=== PATIENT | male | born 1950 | race Caucasian/White ===

== ENCOUNTER 2017-01-14 21:33 | Emergency (ER) | payer OTHER ==
[~2017-01-14] VITALS: Ht 177.8 cm; Wt 91.0 kg
[~2017-01-14 21:33] MED LIST: ASCO10003 PO; CHOL100010 PO; CYCL10TA6 PO; FOLI1TAB7 PO; IBUP-103 PO; NRN/300 PO; PRLSR20 PO; PSEU30TA20 PO; TAMS0.4C59 PO
[2017-01-14 21:35] VITALS: Ht 177.8 cm; Wt 91.0 kg
[2017-01-14] MEDS ORDERED: CHOL100010 PO (21:50)
[2017-01-14] MEDS ORDERED: EFF75 PO (21:51)
--- NOTE | 2017-01-14 22:03 | EMERGENCY ROOM VISIT NOTE ---
History Report prepared by Katelynn: Ignacia Byrne Under the Supervision of: Dr. Alyssa Pedraza D.O. First contact with patient: 21:47 Chief Complaint: LEG PAIN,LEG INJURY Stated Complaint: FALL, LEFT LEG PAIN History of Present Illness The patient is a 66 year old male who presents to the Emergency Room with complaints of constant left leg pain beginning shortly prior to arrival. He rates the pain at a 10/10. The patient reports falling while going up steps. The patient also reports hitting his right elbow which is not giving him pain, and he denies hitting his head. He also denies numbness and tingling in his leg. He reports that he has injured his left knee before and that he has had surgery on it. Pt denies headache, change in vision, fevers, chest pain, shortness of breath, nausea, vomiting, diarrhea, pain with urination, and melena. Source of History: patient Onset: shortly prior to arrival Position: leg (left) Symptom Intensity: rated at a 10/10 Timing: constant Associated Symptoms: No fevers, No headache, No chest pain, No SOB, No nausea, No vomiting, No melena Review of Systems See HPI for pertinent positives & negatives. A total of 10 systems reviewed and were otherwise negative. Past Medical & Surgical Medical Problems: (1) Stomach problems Family History FHx: cancer Gallbladder disease Social History Smoking Status: Never Smoker Marital Status: Housing Status: lives with significant other Current/Historical Medications Scheduled Ascorbic Acid (Vitamin C), 1,000 MG PO DAILY Cholecalciferol (Vitamin D), 1,000 UNITS PO DAILY Folic Acid (Folvite), 1 MG PO DAILY Gabapentin (Neurontin), 600 MG PO BID Omeprazole (Prilosec), 20 MG PO BID Venlafaxine Hcl (Effexor), 1 CAP PO DAILY Scheduled PRN Cyclobenzaprine Hcl (Flexeril), 10 MG PO HS PRN Pseudoephedrine (Sudafed), 30 MG PO DAILY PRN for Nasal Congestion Allergies Coded Allergies: Adhesives (Unverified Allergy, Unknown, TAPE, 07/23/15) BEE STING (Unverified Allergy, Unknown, ., 07/23/15) Meperidine (Unverified Allergy, Unknown, ,, 07/23/15) Morphine (Unverified Allergy, Unknown, ., 07/23/15) Sulfamethoxazole w/Trimethoprim (Unverified Allergy, Unknown, ., 07/23/15) Physical Exam Vital Signs Date Time Temp Pulse Resp B/P (MAP) Pulse Ox O2 Delivery O2 Flow Rate FiO2 01/14/17 22:13 37.1 101 22 138/85 90 Room Air 01/14/17 21:35 37.3 99 20 147/84 91 Room Air Physical Exam GENERAL: alert, well appearing, well nourished, no distress, non-toxic EYE EXAM: normal conjunctiva, PERRL and EOM's grossly intact OROPHARYNX: no exudate, no erythema, lips, buccal mucosa, and tongue normal and mucous membranes are moist NECK: supple, no nuchal rigidity, no adenopathy, non-tender LUNGS: Clear to auscultation. Normal chest wall mechanics HEART: no murmurs, S1 normal and S2 normal ABDOMEN: abdomen soft, non-tender, normo-active bowel sounds, no masses, no rebound or guarding. BACK: Back is symmetrical on inspection and there is no deformity, no midline tenderness, no CVA tenderness. SKIN: no rashes and no bruising UPPER EXTREMITIES: upper extremities are grossly normal. LOWER EXTREMITIES: Pain with palpation of left knee with no obvious deformities.No joint effusion. Tender along medial aspect, small contusion noted at the superior medial aspect. Decreased ROM secondary to injury. No other bony tenderness or deformity noted along the left lower extremity. NEURO EXAM: Normal sensorium, cranial nerves II-XII grossly intact, normal speech, no gross weakness of arms, no gross weakness of legs. Gross sensation intact. Medical Decision & Procedures ER Provider Diagnostic Interpretation: Radiology results have been interpreted by the radiologist and reviewed by me. L KNEE 1 OR 2 VIEWS ROUTINE CLINICAL HISTORY: trauma pain COMPARISON: None. DISCUSSION: Considerable degenerative change all major joint compartments. Small joint effusion. Mild soft tissue edema. IMPRESSION: Considerable degenerative change. Small joint effusion. No acute bony abnormality The above report was generated using voice recognition software. It may contain grammatical, syntax or spelling errors. Electronically signed by: Dario Virgen M.D. 01/14/2017 10:22 PM Dictated Date/Time: 01/14/2017 10:21 PM L ANKLE MIN 3 VIEWS ROUTINE CLINICAL HISTORY: TRAUMA, FALL LEFT ANKLE SWELLING COMPARISON: None. DISCUSSION: Moderate generalized degenerative change. Heel spur. Ossification Achilles tendon insertion. No acute bony abnormality. There is no evidence for soft tissue swelling. IMPRESSION: Moderate degenerative change. No acute bony abnormality. Heel spur. The above report was generated using voice recognition software. It may contain grammatical, syntax or spelling errors. Electronically signed by: Dario Virgen M.D. 01/14/2017 10:28 PM Dictated Date/Time: 01/14/2017 10:27 PM ED Course 2155: The patient was evaluated in room C6. A complete history and physical exam was performed. 0: I updated the patient on his results. 0: Upon reevaluation, the patient is feeling better. I discussed the findings and the treatment plan with the patient. He verbalizes agreement and understanding. He was discharged home. Medical Decision No evidence for fx/dislocation, low risk mechanism. Pt and family concerned about ligamentous injury, discussed f/u with pcp and if sx persist f/u with ortho and likely additional imaging. Discussed crutches, limited ROM and non weight bearing until improved or otherwise advised. Discussed sx to watch/ return for, they verbalized understanding and were agreeable with plan. Medication Reconcilliation Current Medication List: was personally reviewed by me Blood Pressure Screening Patient's blood pressure: Elevated blood pressure Blood pressure disposition: Elevated BP felt to be situational Impression Primary Impression: Leg pain, left Additional Impression: Contusion Scribe Attestation The scribe's documentation has been prepared under my direction and personally reviewed by me in its entirety. I confirm that the note above accurately reflects all work, treatment, procedures, and medical decision making performed by me. Departure Information Dispostion Home / Self-Care Referrals No Doctor, Assigned (PCP) Forms HOME CARE DOCUMENTATION FORM, IMPORTANT VISIT INFORMATION Patient Instructions My [facility] Recurve Additional Instructions Please elevate the leg when seated. Please use the crutches until the knee is better or you're seen and cleared by your family doctor. Please follow up with your family doctor this week. If your knee is not improved, they may send you for additional pictures or refer you to an criminal research specialist. If you have any other worsening symptoms or new concerns, please return the emergency room. Problem Qualifiers Additional Impression: Contusion Encounter type: initial encounter Contusion area: knee Laterality: left Qualified Codes: S80.02XA - Contusion of left knee, initial encounter
[2017-01-14 22:13] VITALS: BP 138/85; PULSE 101; TEMP 37.1; O2SAT 90
--- NOTE | 2017-01-14 22:24 | DIAGNOSTIC IMAGING REPORT ---
L KNEE 1 OR 2 VIEWS ROUTINE CLINICAL HISTORY: trauma pain COMPARISON: None. DISCUSSION: Considerable degenerative change all major joint compartments. Small joint effusion. Mild soft tissue edema. IMPRESSION: Considerable degenerative change. Small joint effusion. No acute bony abnormality The above report was generated using voice recognition software. It may contain grammatical, syntax or spelling errors. Electronically signed by: Dario Virgen M.D. 01/14/2017 10:22 PM Dictated Date/Time: 01/14/2017 10:21 PM
--- NOTE | 2017-01-14 22:29 | DIAGNOSTIC IMAGING REPORT ---
L ANKLE MIN 3 VIEWS ROUTINE CLINICAL HISTORY: TRAUMA, FALL LEFT ANKLE SWELLING COMPARISON: None. DISCUSSION: Moderate generalized degenerative change. Heel spur. Ossification Achilles tendon insertion. No acute bony abnormality. There is no evidence for soft tissue swelling. IMPRESSION: Moderate degenerative change. No acute bony abnormality. Heel spur. The above report was generated using voice recognition software. It may contain grammatical, syntax or spelling errors. Electronically signed by: Dario Virgen M.D. 01/14/2017 10:28 PM Dictated Date/Time: 01/14/2017 10:27 PM
== END 2017-01-14 23:38 | disposition home or self-care (01) ==
LOC: C.EDB 21:34 → C.EDC 23:38
DX: M79.605 Pain in left leg (principal); S80.02XA Contusion of left knee, initial encounter; W10.9XXA Fall (on) (from) unspecified stairs and steps, initial encounter; Y92.9 Unspecified place or not applicable; Z80.9 Family history of malignant neoplasm, unspecified; Z83.79 Family history of other diseases of the digestive system; Z79.899 Other long term (current) drug therapy

== ENCOUNTER 2018-06-26 18:52 | Inpatient (IN) ==
[2018-06-26] MEDS ORDERED: ONDANSETRON INJ 2 MG/ML 2 ML VIAL IV STA (19:10)
[2018-06-26] MEDS ORDERED: KETOROLAC TROMETHAMINE 15 MG/ML VIAL IV STA (19:10)
[2018-06-26] MEDS ORDERED: ACETAMINOPHEN 1,000 MG/100 ML VIAL IV STA (19:10)
[2018-06-26] MEDS ORDERED: PIPERACILLIN/TAZOBACTAM 4.5 GM/120 ML BAG IV ONE (19:12)
[2018-06-26] MEDS ORDERED: SODIUM CHLORIDE 0.9% 1000ML 1,000 ML IV SCH (19:15)
[2018-06-26 19:40] LABS: Hematocrit (blood only) 37.8 % (42-52); Hemoglobin 12.6 g/dL (14.0-18.0); Mean Corpuscular Hgb Conc 33.3 g/dL (32-36); Mean Corpuscular Volume 91.1 fL (80-100); Mean Platelet Volume 9.4 fL (7.4-10.4); Platelet Count 349 K/uL (130-400); RDW Standard Deviation 43.1 fL (36.4-46.3); Red Blood Count 4.15 M/uL (4.7-6.1); White Blood Count 16.41 K/uL (4.8-10.8)
[2018-06-26 19:58] LABS: Albumin Level 2.7 gm/dl (3.4-5.0); BUN Creatinine Ratio 15.2 (10-20); Calcium 8.5 mg/dl (8.5-10.1); Creatinine Clr Calc Pharmacy 95.5 ml/min; Est GFR (African American) 103.7; Est GFR (Non-African American) 89.5; Magnesium 1.7 mg/dl (1.8-2.4)
[2018-06-26 20:00] LABS: Albumin Globulin Ratio 0.5 (0.9-2); Bilirubin,Total 0.8 mg/dl (0.2-1); Globulin 5.1 gm/dl (2.5-4.0); Total Protein 7.8 gm/dl (6.4-8.2)
[2018-06-26] MEDS ORDERED: MAGNESIUM SULFATE / D5W 1 GM/100 ML BAG IV ONE (20:05)
[2018-06-26 20:08] LABS: Basophils # (auto) 0.02 K/uL (0-0.2); Basophils % (auto) 0.1 %; Eosinophils # (auto) 0.17 K/uL (0-0.5); Immature Granulocytes # (auto) 0.08 K/uL (0.00-0.02); Immature Granulocytes % (auto) 0.5 %; Lymphocytes # (auto) 1.27 K/uL (1.2-3.4); Lymphocytes % (auto) 7.7 %; Monocytes # (auto) 2.17 K/uL (0.11-0.59); Monocytes % (auto) 13.2 %; Neutrophils % (auto) 77.5 %; Toxic Vacuolation 1+
--- NOTE | 2018-06-26 20:20 | XRay Report ---
XR chest 1V portable HISTORY: 67 years-old Male epig pain acute epigastric abdominal pain COMPARISON: CT chest 02/02/2010, chest radiograph 02/02/2010 TECHNIQUE: Portable AP view of the chest FINDINGS: Lungs are hypoinflated with bronchovascular crowding. Moderate right hemidiaphragmatic elevation. Car diac silhouette is mildly enlarged. Mild bilateral interstitial coarsening without pneumothorax, pleu ral effusion or overt pulmonary edema. Subsegmental bibasilar opacities. Degenerative changes of the shoulders and spine. IMPRESSION: 1. Hypoinflation with bronchovascular crowding. 2. Mild cardiomegaly. 3. Moderate hemidiaphragmatic elevation with bibasilar opacities suggestive of atelectasis or pneumon itis. The above report was generated using voice recognition software. It may contain grammatical, syntax o r spelling errors. Electronically signed by: Henrique Stewart M.D. 06/26/2018 8:19 PM
--- NOTE | 2018-06-26 21:04 | Ultrasound Report ---
US gallbladder HISTORY: 67 years-old Male epig pain acute epigastric abdominal pain COMPARISON: Chest radiograph of same day TECHNIQUE: Multiple real-time sonographic images of the abdominal right upper quadrant were obtained assessing grayscale appearance and color flow FINDINGS: Pancreas is obscured by bowel gas. Small right pleural effusion incidentally noted. Increased echogen icity of liver is noted with poor through transmission. Heterogeneous appearance of the parenchyma wi thout evidence of ascites or intrahepatic biliary ductal dilation. No focal hepatic mass lesion. Comm on bile duct is normal, 5 mm. Intraluminal echogenicity of the gallbladder lumen are noted without posterior acoustic shadowing. No gallbladder wall thickening or pericholecystic fluid. Or sonographic sign reported as negativ e. Imaged right kidney is unremarkable without hydronephrosis. Obscuring bowel gas limits the study. IMPRESSION: 1. Gallbladder sludge with possible cholelithiasis. No sonographic evidence of acute cholecystitis. 2. No biliary ductal dilation. 3. Suggested hepatic steatosis. The above report was generated using voice recognition software. It may contain grammatical, syntax o r spelling errors. Electronically signed by: Henrique Stewart M.D. 06/26/2018 9:03 PM
[2018-06-26 21:29] LABS: Appearance Urine Clear (Clear); Bacteria Urine Automated Negative (Negative); Bilirubin Urine Negative (Negative); Blood Urine Negative (Negative); Cast Urine Automated 0 /lpf (0-5); Color Urine Yellow; Epithelial Cell Urine Auto 0-5 /lpf (0-5); Glucose Urine UA Negative (Negative); Ketones Urine Negative (Negative); Leukocyte Esterase Urine Negative (Negative); Nitrite Urine Negative (Negative); Protein Urine Trace (Negative); RBC Urine Automated 0-4 /hpf (0-4); Specific Gravity Urine 1.017 (1.000-1.030); Urobilinogen Urine Negative (Negative); WBC Urine Automated 0 /hpf (0-5)
[2018-06-26] MEDS ORDERED: IOVERSOL 100ml IV PRN (22:11)
--- NOTE | 2018-06-26 22:14 | Emergency Department Note ---
Entered by Evie Cardenas acting as a scribe for Kody Long MD History of Present Illness General Chief complaint: Abdominal Pain Stated complaint: PAIN ON RT SIDE Time Seen by Provider: 06/26/18 18:58 Source: patient Mode of arrival: ambulatory Limitations: no limitations History of Present Illness Provider complaint: abdominal pain Onset (ago): week(s) 1 Location: abdomen and right Pain Consistency: + other (worsening) Exacerbated By: + movement and + other (coughing, bending); not by eating Associated symptoms: + denies other symptoms (urinary, abn BM), + cough, + headaches, + loss of appetite and + nausea/vomiting (nausea, no emesis); no fever/chills The patient is a 67 year old male who presents to the Emergency Room with c omplaints of a worsening abdominal pain that began a week ago. The patient reports that the pain is located on the right upper quadrant of his abdomen. He denies any fevers, chills, or vomiting but states has been nauseous. He rates his pain a 5/10 and notes the pain is worsened by bending, coughing or moving. The patient denies eating making the pain worse and notes he has had a loss of appetite. He denies any urinary symptoms or abnormal bowel movements. He also denies any previous surgeries. The patient states that he does have a headache but believes it is unrelated. He reports that he has also been coughing for months. The patient notes that he had an US of his gallbladder performed about a month ago which showed sludge. Home Medications Home Medications Medication Instructions Recorded Confirmed Type amlodipine 5 mg PO DAILY 06/26/18 06/26/18 History cyclobenzaprine 10 mg PO HS PRN 06/26/18 06/26/18 History fentanyl 1 patch TRANSDERMAL Q OTHER DAY 06/26/18 06/26/18 History gabapentin 600 mg PO BID 06/26/18 06/26/18 History meloxicam 0 mg PO DAILY 06/26/18 06/26/18 History omeprazole 20 mg PO BID 06/26/18 06/26/18 History pseudoephedrine HCl [Sudafed] 30 mg PO DAILY PRN 06/26/18 06/26/18 History venlafaxine [Effexor XR] 0 mg PO BID 06/26/18 06/26/18 History Allergies Allergy/AdvReac Type Severity Reaction Status Date / Time morphine Allergy Severe PROJECTILE Verified 06/26/18 19:50 VOMITING bee venom protein (honey bee) Allergy Intermediate EXCESSIVE Verified 06/26/18 19:50 SWELLING AT SITE sulfamethoxazole Allergy Intermediate TONGUE Verified 06/26/18 19:50 SWELLS, WHITE BLISTERS IN MOUTH. trimethoprim Allergy Intermediate TONGUE Verified 06/26/18 19:50 SWELLS, WHITE BLISTERS IN MOUTH. adhesive Allergy Mild SKIN Verified 06/26/18 19:50 IRRITATION Bactrim Allergy Unknown . Unverified 07/23/15 11:07 Past Med/Surg History Medical History No significant past medical history Surgical History No significant past surgical history Social History marital status: Current Living Situation: Spouse Feels Safe at Home: Yes Smoking Status: Never smoker Review of Systems See HPI for pertinent positives & negatives. and A total of 10 systems reviewed and were otherwise negative Physical Exam Vital Signs Vital Signs - 24 hr 06/26/18 18:54 06/26/18 20:08 06/26/18 20:11 Temperature 37.9 C H Temperature Source Oral Sepsis Recent Fever Within 48 Hours No Sepsis Action Taken by Nursing No Action Required Pulse Rate 111 H 94 H Pulse Rate [Bilateral] Pulse Rate from SpO2 Sensor 93 H Pulse Rhythm Regular Pulse Rhythm [Bilateral] Pulse Strength Normal Pulse Strength [Bilateral] Respiratory Rate 18 24 Respiratory Effort / Characteristics Non-Labored Spontaneous Respiratory Depth Normal Blood Pressure 138/83 114/77 Blood Pressure [Right Arm] Blood Pressure Mean 101 89 Blood Pressure Mean [Right Arm] Blood Pressure Position Sitting Pulse Oximetry 91 86 L Oxygen Delivery Method Room Air Room Air Room Air Oxygen Flow Rate 06/26/18 20:15 06/26/18 20:16 06/26/18 20:27 Temperature Temperature Source Sepsis Recent Fever Within 48 Hours Sepsis Action Taken by Nursing Pulse Rate Pulse Rate [Bilateral] Pulse Rate from SpO2 Sensor Pulse Rhythm Pulse Rhythm [Bilateral] Pulse Strength Pulse Strength [Bilateral] Respiratory Rate Respiratory Effort / Characteristics Respiratory Depth Blood Pressure 114/77 Blood Pressure [Right Arm] Blood Pressure Mean 89 Blood Pressure Mean [Right Arm] Blood Pressure Position Pulse Oximetry 93 Oxygen Delivery Method Nasal Cannula Oxygen Flow Rate 0 06/26/18 21:12 06/26/18 21:30 06/26/18 22:00 Temperature Temperature Source Sepsis Recent Fever Within 48 Hours Sepsis Action Taken by Nursing Pulse Rate 83 89 93 H Pulse Rate [Bilateral] Pulse Rate from SpO2 Sensor 84 89 94 H Pulse Rhythm Pulse Rhythm [Bilateral] Pulse Strength Pulse Strength [Bilateral] Respiratory Rate 16 20 20 Respiratory Effort / Characteristics Respiratory Depth Blood Pressure 118/70 115/77 127/80 Blood Pressure [Right Arm] Blood Pressure Mean 86 89 95 Blood Pressure Mean [Right Arm] Blood Pressure Position Pulse Oximetry 95 94 95 Oxygen Delivery Method Oxygen Flow Rate 06/26/18 22:28 06/26/18 23:00 Temperature Temperature Source Sepsis Recent Fever Within 48 Hours Sepsis Action Taken by Nursing Pulse Rate Pulse Rate [Bilateral] 79 77 Pulse Rate from SpO2 Sensor Pulse Rhythm Pulse Rhythm [Bilateral] Regular Pulse Strength Pulse Strength [Bilateral] Normal Respiratory Rate 20 22 Respiratory Effort / Characteristics Non-Labored Spontaneous Respiratory Depth Normal Blood Pressure Blood Pressure [Right Arm] 100/64 Blood Pressure Mean Blood Pressure Mean [Right Arm] 76 Blood Pressure Position Pulse Oximetry 85 L 95 Oxygen Delivery Method Room Air Nasal Cannula Oxygen Flow Rate 2 GENERAL: Patient is in no acute distress. HEENT: No acute trauma, normocephalic atraumatic, mucous membranes dry, no nasal congestion, no scleral icterus. NECK: No stridor, no adenopathy, no meningismus, trachea is midline. LUNGS: Clear to auscultation bilaterally, no wheeze, no rhonchi, breath sounds equal but diminished bilaterally. HEART: subtle systolic murmur, regular rhythm, normal rate. ABDOMEN: Soft, bowel sounds positive, no hernias, no peritonitis. Moderately tender in the right upper quadrant, pain worsens with a deep breath. EXTREMITIES: No cyanosis or edema, full range of motion of all the joints without pain or difficulty, no signs for acute trauma. NEUROLOGIC: Oriented x 3, no acute motor or sensory deficits, no focal weakness. SKIN: No rash, no jaundice, no diaphoresis. Course 1903: Past medical records reviewed. The patient was evaluated in room D3B, and a complete history and physical examination were performed. 2136: I updated the patient on today's findings. 2247: I reviewed the patient's case with Dr. Mo - [facility] Hospitalist. He will evaluate the patient for further management. Administered Medications Ioversol (Optiray 320 100ml) 96 ml IV ONCE PRN PRN Reason: Interaction Checking Stop: 06/30/18 22:10 Last Admin: 06/26/18 22:12 Dose: 96 ml Documented by: [id number] Discontinued Medications Albuterol (Duoneb) 3 ml NEB NOW STA Stop: 06/26/18 22:42 Last Admin: 06/26/18 22:47 Dose: 3 ml Documented by: [id number] Piperacillin Sod/Tazobactam Sod (Zosyn) 4.5 gm in 120 mls @ 240 mls/hr IV NOW ONE Stop: 06/26/18 19:41 Last Infusion: 06/26/18 20:40 Dose: 0 mls/hr Documented by: [id number] Admin: 06/26/18 20:05 Dose: 240 mls/hr Documented by: [id number] Acetaminophen (Ofirmev) 1,000 mg in 100 mls @ 400 mls/hr IV NOW STA Stop: 06/26/18 19:24 Last Infusion: 06/26/18 19:58 Dose: 0 mls/hr Documented by: [id number] Admin: 06/26/18 19:43 Dose: 400 mls/hr Documented by: [id number] Sodium Chloride (Nss 1000ml) 1,000 mls @ 999 mls/hr IV .Q1H1M BLANCA Stop: 06/26/18 20:15 Last Infusion: 06/26/18 20:35 Dose: 0 mls/hr Documented by: [id number] Admin: 06/26/18 19:38 Dose: 999 mls/hr Documented by: [id number] Magnesium Sulfate/Dextrose (Magnesium Sulfate / D5w) 1 gm in 100 mls @ 100 mls/hr IV ONE ONE Stop: 06/26/18 21:04 Last Infusion: 06/26/18 22:08 Dose: 0 mls/hr Documented by: [id number] Admin: 06/26/18 21:08 Dose: 100 mls/hr Documented by: [id number] Ketorolac Tromethamine (Toradol) 15 mg IV NOW STA Stop: 06/26/18 19:11 Last Admin: 06/26/18 19:38 Dose: 15 mg Documented by: [id number] Ondansetron HCl (Zofran) 4 mg IV NOW STA Stop: 06/26/18 19:11 Last Admin: 06/26/18 19:40 Dose: 4 mg Documented by: [id number] Medical Decision Making Differential Diagnosis Differential Diagnosis includes: acute cholecystitis, acute pancreatitis, pneumonia, biliary colic, pyelonephritis, appendicitis, dehydration, renal or liver failure, and viral illness. Medical Records Attestation: I reviewed the patient's medical records. Home Medications Current Medication List: was personally reviewed by me Laboratory Data Attestation: I reviewed the patient's lab results. Result diagrams: 06/26/18 19:25 06/26/18 19:25 Lab Results 06/26/18 06/26/18 06/26/18 Range/Units 19:25 19:25 21:05 WBC 16.41 H (4.8-10.8) K/uL RBC 4.15 L (4.7-6.1) M/uL Hgb 12.6 L (14.0-18.0) g/dL Hct 37.8 L (42-52) % MCV 91.1 (80-100) fL MCH 30.4 (25-34) pg MCHC 33.3 (32-36) g/dL RDW Std Deviation 43.1 (36.4-46.3) fL RDW Coeff of [place]ta 13.0 (11.5-14.5) % Plt Count 349 (130-400) K/uL MPV 9.4 (7.4-10.4) fL Immature Gran % (Auto) 0.5 % Neut % (Auto) 77.5 % Lymph % (Auto) 7.7 % [place] % (Auto) 13.2 % Eos % (Auto) 1.0 % Baso % (Auto) 0.1 % Immature Gran # (Auto) 0.08 H (0.00-0.02) K/uL Neut # (Auto) 12.70 H (1.4-6.5) K/uL Lymph # (Auto) 1.27 (1.2-3.4) K/uL [place] # (Auto) 2.17 H (0.11-0.59) K/uL Eos # (Auto) 0.17 (0-0.5) K/uL Baso # (Auto) 0.02 (0-0.2) K/uL Toxic Vacuolation 1+ Sodium 131 L (136-145) mmol/L Potassium 4.0 (3.5-5.1) mmol/L Chloride 95 L (98-107) mmol/L Carbon Dioxide 30 (21-32) mmol/L Anion Gap 6.0 (3-11) BUN 13 (7-18) mg/dl Creatinine 0.88 (0.6-1.4) mg/dl Est Cr Clr Drug Dosing 95.5 ml/min Est GFR ( Amer) 103.7 Est GFR (Non-Af Amer) 89.5 BUN/Creatinine Ratio 15.2 (10-20) Glucose 128 H (70-99) mg/dl Calcium 8.5 (8.5-10.1) mg/dl Magnesium 1.7 L (1.8-2.4) mg/dl Total Bilirubin 0.8 (0.2-1) mg/dl AST 24 (15-37) U/L ALT 27 (12-78) U/L Alkaline Phosphatase 78 (45-117) U/L Total Protein 7.8 (6.4-8.2) gm/dl Albumin 2.7 L (3.4-5.0) gm/dl Globulin 5.1 H (2.5-4.0) gm/dl Albumin/Globulin Ratio 0.5 L (0.9-2) Lipase 75 (73-393) U/L Urine Color Yellow Urine Appearance Clear (Clear) Urine pH 6.0 (4.5-7.5) Ur Specific [place] 1.017 (1.000-1.030) Urine Protein Trace H (Negative) Urine Glucose (UA) Negative (Negative) Urine Ketones Negative (Negative) Urine Blood Negative (Negative) Urine Nitrite Negative (Negative) Urine Bilirubin Negative (Negative) Urine Urobilinogen Negative (Negative) Ur Leukocyte Esterase Negative (Negative) Urine WBC (Auto) 0 (0-5) /hpf Urine RBC (Auto) 0-4 (0-4) /hpf U Hyaline Cast (Auto) 0 (0-5) /lpf U Epithel Cells (Auto) 0-5 (0-5) /lpf Urine Bacteria (Auto) Negative (Negative) Imaging Data Radiologist's Impression: Radiology results as stated below per my review and the radiologist's interpretation: XR chest 1V portable HISTORY: 67 years-old Male epig pain acute epigastric abdominal pain COMPARISON: CT chest 02/02/2010, chest radiograph 02/02/2010 TECHNIQUE: Portable AP view of the chest FINDINGS: Lungs are hypoinflated with bronchovascular crowding. Moderate right hemidiaphragmatic elevation. Cardiac silhouette is mildly enlarged. Mild bilateral interstitial coarsening without pneumothorax, pleural effusion or overt pulmonary edema. Subsegmental bibasilar opacities. Degenerative changes of the shoulders and spine. IMPRESSION: 1. Hypoinflation with bronchovascular crowding. 2. Mild cardiomegaly. 3. Moderate hemidiaphragmatic elevation with bibasilar opacities suggestive of atelectasis or pneumonitis. The above report was generated using voice recognition software. It may contain grammatical, syntax or spelling errors. Electronically signed by: Henrique Stewart M.D. 06/26/2018 8:19 PM US gallbladder HISTORY: 67 years-old Male epig pain acute epigastric abdominal pain COMPARISON: Chest radiograph of same day TECHNIQUE: Multiple real-time sonographic images of the abdominal right upper quadrant were obtained assessing grayscale appearance and color flow FINDINGS: Pancreas is obscured by bowel gas. Small right pleural effusion incidentally noted. Increased echogenicity of liver is noted with poor through transmission. Heterogeneous appearance of the parenchyma without evidence of ascites or intrahepatic biliary ductal dilation. No focal hepatic mass lesion. Common bile duct is normal, 5 mm. Intraluminal echogenicity of the gallbladder lumen are noted without posterior acoustic shadowing. No gallbladder wall thickening or pericholecystic fluid. Or sonographic sign reported as negative. Imaged right kidney is unremarkable without hydronephrosis. Obscuring bowel gas limits the study. IMPRESSION: 1. Gallbladder sludge with possible cholelithiasis. No sonographic evidence of acute cholecystitis. 2. No biliary ductal dilation. 3. Suggested hepatic steatosis. The above report was generated using voice recognition software. It may contain grammatical, syntax or spelling errors. Electronically signed by: Henrique Stewart M.D. 06/26/2018 9:03 PM ABDOMEN AND PELVIS CT WITH IV CONTRAST CT DOSE: 759.52 mGy.cm HISTORY: Acute right lower quadrant abdominal pain right sided abd pain TECHNIQUE: Multiaxial CT images of the abdomen and pelvis were performed following the use of intravenous contrast. A dose lowering technique was utilized adhering to the principles of ALARA. COMPARISON STUDY: Chest CT 02/02/2010. FINDINGS: Moderate right hemidiaphragmatic elevation. Linear consolidative and groundglass opacities of the right lung base are noted along with a small mildly loculated right pleural effusion. Mild subsegmental left basilar atelectasis/scarring. There is no pneumatosis or pneumoperitoneum identified. Coronary arterial calcifications are noted. The imaged inferior cardiac chambers are mildly enlarged. Enlarged paratracheal and subcarinal lymph nodes measure up to 3.4 x 2.4 cm, progressed from comparison. Minimal cholelithiasis. Spleen is unremarkable. Suggestion of mild hepatic steatosis. Liver is otherwise unremarkable. Pancreas is unremarkable. Mild thickening about the bilateral adrenal glands. The left kidney and ureter are unremarkable. Unchanged soft tissue nodule posterior to the superior pole right kidney, 6 mm. Based on stability from 2010 suggestive of a benign lymph node. Th ere is mild right-sided hydroureteronephrosis with mild perinephric and periureteral inflammatory stranding. No obstructing ureteral calculus or lesion identified. Urinary bladder and prostate appear unremarkable. Tortuosity about the descending thoracic aorta. No adenopathy by CT size criteria. Prominent iliac chain lymph nodes measure up to 8 mm in short axis. Mildly prominent periaortic and periportal lymph nodes are also present measuring up to 9 mm. Fluid noted about the distal esophagus. No small bowel obstruction. Moderate lentiform stool noted about the rectosigmoid. No significant bowel wall thickening identified. Noninflamed appendix. Soft tissues are unremarkable. Bones appear to be intact. Multilevel spondylitic spurring with facet arthropathy. Grade 1 anterolisthesis L4 on L5, likely degenerative. Chronic appearing anterior compression deformities are noted at several levels throughout the thoracolumbar spine. IMPRESSION: 1. Mild right-sided hydroureteronephrosis without obstructing calculus or lesion identified. Findings may be secondary to recently passed calculus or ascending infectious etiology. Correlate with patient history and urinalysis. 2. Small mildly loculated right pleural effusion. 3. Moderate right hemidiaphragmatic elevation with linear consolidative and groundglass opacities of the right lung base suggestive of atelectasis/scarring. 4. Nonspecific enlarged mediastinal lymph nodes with mildly prominent lymph nodes of the abdomen and pelvis as above. Follow-up recommended. 5. No bowel obstruction or focal bowel wall thickening. Normal appendix. 6. Additional findings as above. Electronically signed by: Henrique Stewart M.D. 06/26/2018 10:26 PM ECG Data Attestation: I personally reviewed and interpreted this ECG as follows: Indication: tachycardia Rate (beats per minute): 102 Rhythm: sinus tachycardia Findings: no PVC and no ST elevation Blood Pressure Blood Pressure Findings: Normal blood pressure Blood Pressure Disposition: did not require urgent referral MDM Narrative There is a moderate leukocytosis at 16,000, this would be consistent with infection. A mild anemia was noted. No kidney failure. Magnesium is slightly low at 1.7. No hepatitis or pancreatitis. Urinalysis does not show infection or significant hematuria. Chest film shows some basilar atelectasis and some right hemidiaphragm elevation. No obvious pneumonia, no free air. Gallbladder ultrasound showed some gallbladder sludge, no evidence for acute cholecystitis. Abdominal and pelvis CT shows a right sided pleural effusion, with some co nsolidation. There was no appendicitis or diverticulitis, no free air. The patient presents febrile and mildly tachycardic. He complains of right upper quadrant abdominal pain and the pain worsens with movement and deep breathing. During his ER stay, he did become hypoxic requiring O2 supplement ation. Patient was given IV Tylenol, a DuoNeb, IV Toradol, IV magnesium, IV Zofran, he is resting more comfortably. The patient tachycardia has improved, his blood pressure has remained adequate. It appears his presentation is secondary to a pneumonia with a pleural effusion. This has caused diaphragmatic irritation and some abdominal pain. He does require a hospital stay. I spoke to the patient and case management. The on- call hospitalist was consulted. Impression & Plan Hypoxia, Fever, Right upper quadrant abdominal pain, Leukocytosis Critical Care Time I have personally spent greater than 32 minutes of critical care time in the direct management of this patient. This includes bedside care, interpretation of diagnostic studies and testing, discussion with consultants, the patient, and family members, and other required patient management activities. This 32 minutes is in excess of all separately billable procedures. Critical Care Time: Yes Total Critical Care Time: 32 Discharge Plan Visit Data Chief Complaint: Abdominal Pain Stated Complaint: PAIN ON RT SIDE ED Provider: Kody Long Discharge Problem: Hypoxia, Fever, Right upper quadrant abdominal pain, Leukocytosis Patient Disposition: Being Evaluated by Hospitalist Forms Stand Alone Forms: Call Back Authorization, [facility] Prescriptions Prescriptions: No Action cyclobenzaprine 10 mg Tablet 10 mg PO HS PRN (Reason: Muscle Spasm) RF: 0 venlafaxine [Effexor XR] 37.5 mg Capsule,Extended Release 24hr PO BID RF: 0 gabapentin 600 mg Tablet 600 mg PO BID RF: 0 amlodipine 5 mg Tablet 5 mg PO DAILY RF: 0 meloxicam 7.5 mg Tablet PO DAILY RF: 0 fentanyl 100 mcg/hr Patch 72 Hour 1 patch TRANSDERMAL Q OTHER DAY RF: 0 omeprazole 20 mg Capsule,Delayed Release(Dr/Ec) 20 mg PO BID RF: 0 pseudoephedrine HCl [Sudafed] 30 mg Tablet 30 mg PO DAILY PRN (Reason: Congestion) RF: 0 Referrals Referrals: PCP,NO [Primary Care Provider] - Discharge Problem: Fever Qualifiers: Fever type: unspecified Qualified Code(s): R50.9 - Fever, unspecified Leukocytosis Qualifiers: Leukocytosis type: unspecified Qualified Code(s): D72.829 - Elevated white blood cell count, unspecified The scribe's documentation has been prepared under my direction and personally reviewed by me in its entirety. I confirm that the note above accurately reflects all work, treatment, procedures, and medical decision making performed by me.
--- NOTE | 2018-06-26 22:29 | CT Scan Report ---
ABDOMEN AND PELVIS CT WITH IV CONTRAST CT DOSE: 759.52 mGy.cm HISTORY: Acute right lower quadrant abdominal pain right sided abd pain TECHNIQUE: Multiaxial CT images of the abdomen and pelvis were performed following the use of intrave nous contrast. A dose lowering technique was utilized adhering to the principles of ALARA. COMPARISON STUDY: Chest CT 02/02/2010. FINDINGS: Moderate right hemidiaphragmatic elevation. Linear consolidative and groundglass opacities of the ri ght lung base are noted along with a small mildly loculated right pleural effusion. Mild subsegmental left basilar atelectasis/scarring. There is no pneumatosis or pneumoperitoneum identified. Coronary arterial calcifications are noted. The imaged inferior cardiac chambers are mildly enlarged. Enlarged paratracheal and subcarinal lymph nodes measure up to 3.4 x 2.4 cm, progressed from comparison. Minimal cholelithiasis. Spleen is unremarkable. Suggestion of mild hepatic steatosis. Liver is otherw ise unremarkable. Pancreas is unremarkable. Mild thickening about the bilateral adrenal glands. The l eft kidney and ureter are unremarkable. Unchanged soft tissue nodule posterior to the superior pole r ight kidney, 6 mm. Based on stability from 2009 suggestive of a benign lymph node. There is mild righ t-sided hydroureteronephrosis with mild perinephric and periureteral inflammatory stranding. No obstr ucting ureteral calculus or lesion identified. Urinary bladder and prostate appear unremarkable. Tort uosity about the descending thoracic aorta. No adenopathy by CT size criteria. Prominent iliac chain lymph nodes measure up to 8 mm in short axis. Mildly prominent periaortic and periportal lymph nodes are also present measuring up to 9 mm. Fluid noted about the distal esophagus. No small bowel obstruction. Moderate lentiform stool noted ab out the rectosigmoid. No significant bowel wall thickening identified. Noninflamed appendix. Soft tis sues are unremarkable. Bones appear to be intact. Multilevel spondylitic spurring with facet arthropa thy. Grade 1 anterolisthesis L4 on L5, likely degenerative. Chronic appearing anterior compression de formities are noted at several levels throughout the thoracolumbar spine. IMPRESSION: 1. Mild right-sided hydroureteronephrosis without obstructing calculus or lesion identified. Findings may be secondary to recently passed calculus or ascending infectious etiology. Correlate with patien t history and urinalysis. 2. Small mildly loculated right pleural effusion. 3. Moderate right hemidiaphragmatic elevation with linear consolidative and groundglass opacities of the right lung base suggestive of atelectasis/scarring. 4. Nonspecific enlarged mediastinal lymph nodes with mildly prominent lymph nodes of the abdomen and pelvis as above. Follow-up recommended. 5. No bowel obstruction or focal bowel wall thickening. Normal appendix. 6. Additional findings as above. Electronically signed by: Henrique Stewart M.D. 06/26/2018 10:26 PM
[2018-06-26] MEDS ORDERED: ALBUT/IPRATROP 3MG/0.5MG NEB 3 ML VIAL NEB STA (22:41)
--- NOTE | 2018-06-27 00:41 | History & Physical Report ---
Date of Service June 27, 2018 Assessment & Plan (1) Sepsis: Mr. Alvarez is a 67-year-old male with a history of hypertension, chronic back pain, GERD, depression who presents to the emergency department due to a 1 month history of gradually worsening right sided back pain, cough and weakness. ED course: 1 L normal saline bolus, 15 mg IV ketorolac, duo nebs x1, 1 g magnesium sulfate, 4 mg IV Zofran, 1 g IV acetaminophen, 4.5 g IV Zosyn -Admit to med/surg -Patient meets criteria for sepsis with tachycardia, elevated white cell count, and pulmonary source of infection -CT abdomen and pelvis showed a right sided pneumonia w/a small, mildly loculated pleural effusion -Continue treatment with IV Zosyn and add vancomycin -consider CT of chest +/- pulmonary consult for bronchoscopy if patient does not improve w/IV abx -> may have an obstructive process -Patient desaturated to 85% on room air, continue oxygen as needed. Patient currently requiring 2 L of oxygen to maintain saturations -Blood cultures drawn x2 and pending -650 mg p.o. acetaminophen ordered every 4 hours as needed for pain or fever -4 mg IV Zofran ordered as needed for nausea -xopenex nebs ordered prn SOB/wheeze Hypertension -Hold home amlodipine given hypotensive in the emergency department Chronic back pain -Continue home regimen, including cyclobenzaprine, fentanyl, gabapentin, meloxicam -With regards to new right-sided abdominal and back pain, this is likely related to the pleural effusion and pneumonia causing diaphragmatic irritation. The patient's CT abdomen pelvis did show right-sided hydronephrosis, which may have represented a recently passed stone or infection. The patient, however, denies any urinary symptoms, and his UA is clean, making an infection unlikely. -He also does have gallbladder sludge noted on his CT abdomen pelvis, however there is no evidence of cholecystitis Lymphadenopathy -CT abdomen/pelvis shows enlarged mediastinal lymph nodes with prominent lymph nodes of the abdomen and pelvis, see CT report for full details -Outpatient follow-up recommended Depression -Continue home venlafaxine GERD -Change from omeprazole to pantoprazole CODE STATUS: Full Disposition: Admit to med/surg DVT prophylaxis: Lovenox 40 mg SQ daily F/E/N: Regular diet ordered. Hyponatremia with sodium of 131, and low chloride at 95. Patient also has a low magnesium of 1.7 (repleted in ED). Likely related to poor oral intake, recheck BMP tomorrow. Ringer's lactate ordered at 125 mLs/hour x2 bags (2) Leukocytosis: (3) Right upper quadrant abdominal pain: (4) Fever: (5) Hypoxia: (6) Pneumonia: (7) Hypertension: (8) Chronic back pain: (9) GERD (gastroesophageal reflux disease): (10) Depression: History of Present Illness Primary Care Provider: NO PCP Mr. Alvarez is a 67-year-old male with a history of hypertension, chronic back pain, GERD, and depression who presents to the emergency department due worsening right sided back pain, cough and weakness. He states the pain began 1 month ago, over the right side of his abdomen, around to his back, and has been gradually worsening over the past month. He states the pain is worst when he bends over, or if he takes a deep breath. He also endorses a cough, which she states he has had for "a while." The cough is productive of sputum, however no blood. He denies any fever or chills, but states he has felt weak and tired, which was worse today. He also endorses decreased appetite, associated with nausea, but no vomiting. He denies any urinary symptoms, and states that his bowel movements have been normal for him, once every 3 days, without the presence of blood. He denies any leg swelling, history of blood clots in his legs or lungs, and states that he has had no recent long-haul flights or travel. He denies a history of SD, and has not seen a billet driller in the past. He also denies any sick contacts. Of note, he is a former smoker. He quit at the age of 22, and smoked a pack a day for a few years. He denies use of alcohol or any recreational drugs. He gets his medical [facility] through [facility]. Allergies Allergy/AdvReac Type Severity Reaction Status Date / Time morphine Allergy Severe PROJECTILE Verified 06/26/18 19:50 VOMITING bee venom protein (honey bee) Allergy Intermediate EXCESSIVE Verified 06/26/18 19:50 SWELLING AT SITE sulfamethoxazole Allergy Intermediate TONGUE Verified 06/26/18 19:50 SWELLS, WHITE BLISTERS IN MOUTH. trimethoprim Allergy Intermediate TONGUE Verified 06/26/18 19:50 SWELLS, WHITE BLISTERS IN MOUTH. adhesive Allergy Mild SKIN Verified 06/26/18 19:50 IRRITATION Bactrim Allergy Unknown . Unverified 07/23/15 11:07 Home Medications Home Medications Medication Instructions Recorded Confirmed Type amlodipine 5 mg PO DAILY 06/26/18 06/26/18 History cyclobenzaprine 10 mg PO HS PRN 06/26/18 06/26/18 History fentanyl 1 patch TRANSDERMAL Q OTHER DAY 06/26/18 06/26/18 History gabapentin 600 mg PO BID 06/26/18 06/26/18 History meloxicam 0 mg PO DAILY 06/26/18 06/26/18 History omeprazole 20 mg PO BID 06/26/18 06/26/18 History pseudoephedrine HCl [Sudafed] 30 mg PO DAILY PRN 06/26/18 06/26/18 History venlafaxine [Effexor XR] 0 mg PO BID 06/26/18 06/26/18 History Past Med/Surg History Medical History Depression GERD (gastroesophageal reflux disease) Chronic back pain Hypertension No significant past medical history Surgical History No significant past surgical history Social History Preferred Language: Marshallese Communication Ability: Effective Beliefs That Will Affect Care: None marital status: Current Living Situation: Spouse Other Information That Helps Us Care for You: No Feels Safe at Home: Yes Safety Concerns: Feels Safe At This Time Smoking Status: Unknown if ever smoked Hx Alcohol Use: No Hx Substance Use: No Review of Systems Constitutional: + fatigue, + malaise, + weakness and + anorexia; no fever and no chills Respiratory: + cough and + sputum production; no dyspnea (Patient denies dyspnea at rest, however he states he has not exerted himself, and is unable to comment on dyspnea on exertion) and no wheezing Cardiovascular: no chest pain, no palpitations, no syncope, no edema and no calf pain Gastrointestinal: + abdominal pain (Right-sided abdominal pain, radiating to the back) and + nausea; no vomiting, no change in bowel habits and no blood in stools Genitourinary (Male): no dysuria, no difficulty urinating, no urinary frequency, no urinary hesitancy, no decreased urination and no hematuria Musculoskeletal: + back pain Integumentary: no rash and no lesions Physical Exam Vital Signs (Past 24 Hours): Last Vital Signs Temp 37.9 C H 06/26/18 18:54 Pulse 77 06/26/18 23:00 Resp 22 06/26/18 23:00 BP 100/64 06/26/18 23:00 Pulse Ox 95 06/26/18 23:00 Constitutional: WD/WN, vitals as above + well hydrated and cooperative Laying on left side, as he states this is most comfortable position for him ENMT: external ear and nose normal, oropharynx normal Respiratory: normal respiratory effort; no respiratory distress Auscultation: + diminished lung sounds (Bilaterally); no crackles, no rales and no wheezes Wearing 2 L of oxygen via nasal cannula Cardiovascular: RRR, no murmur, no edema Extremities: normal capillary refill; no calf tenderness and no pedal edema Gastrointestinal (Abdomen): Percussion/Palpation: abdomen soft; abdomen nontender, no guarding and abdomen not rigid Musculoskeletal: No flank tenderness, no tenderness to palpation of back Skin: no rashes, warm and dry Psychiatric: A+Ox3, euthymic affect Results & Data Laboratory Results Laboratory Results - last 24 hr 06/26/18 06/26/18 06/26/18 19:25 19:25 21:05 WBC 16.41 H RBC 4.15 L Hgb 12.6 L Hct 37.8 L MCV 91.1 MCH 30.4 MCHC 33.3 RDW Std Deviation 43.1 RDW Coeff of Netta 13.0 Plt Count 349 MPV 9.4 Immature Gran % (Auto) 0.5 Neut % (Auto) 77.5 Lymph % (Auto) 7.7 [place] % (Auto) 13.2 Eos % (Auto) 1.0 Baso % (Auto) 0.1 Immature Gran # (Auto) 0.08 H Neut # (Auto) 12.70 H Lymph # (Auto) 1.27 [place] # (Auto) 2.17 H Eos # (Auto) 0.17 Baso # (Auto) 0.02 Toxic Vacuolation 1+ Sodium 131 L Potassium 4.0 Chloride 95 L Carbon Dioxide 30 Anion Gap 6.0 BUN 13 Creatinine 0.88 Est Cr Clr Drug Dosing 95.5 Est GFR ( Amer) 103.7 Est GFR (Non-Af Amer) 89.5 BUN/Creatinine Ratio 15.2 Glucose 128 H Calcium 8.5 Magnesium 1.7 L Total Bilirubin 0.8 AST 24 ALT 27 Alkaline Phosphatase 78 Total Protein 7.8 Albumin 2.7 L Globulin 5.1 H Albumin/Globulin Ratio 0.5 L Lipase 75 Urine Color Yellow Urine Appearance Clear Urine pH 6.0 Ur Specific [place] 1.017 Urine Protein Trace H Urine Glucose (UA) Negative Urine Ketones Negative Urine Blood Negative Urine Nitrite Negative Urine Bilirubin Negative Urine Urobilinogen Negative Ur Leukocyte Esterase Negative Urine WBC (Auto) 0 Urine RBC (Auto) 0-4 U Hyaline Cast (Auto) 0 U Epithel Cells (Auto) 0-5 Urine Bacteria (Auto) Negative Supervising Physician Co-Signing Physician Notes Attending addendum: I have physically seen this patient, have supervised the medical residents activities, and agree with the H&P unless as otherwise noted. Assessment and Plan: Pneumonia involving right lung/parapneumonic effusion/sepsis-- Vancomycin IV and Zosyn IV. Duonebs every 4 hours while awake and every 2 hours when necessary. Guaifenesin extended release 600 mg p.o. twice daily. Zofran 4 mg IV every [address] of chest to further assess. Sputum Gram stain and culture. Follow blood cultures. Lymphadenopathy-- Enlarged paratracheal, and subcarinal, measuring up to 3.4x2.4 cm. Prominent iliac chain lymph nodes measuring up to 8 mm in short axis. Mildly prominent periaortic and periportal lymph nodes measuring up to 9 mm Needs follow up peripheral smear and Leukemia/lymphoma work up. Remainder of orders and notations as noted. Resident Activity Tracking Resident Involvement: Resident Care Provided Care Provided: Adult Hospital Medicine (1) Fever Fever type: unspecified Qualified Code(s): R50.9 - Fever, unspecified (2) Leukocytosis Leukocytosis type: unspecified Qualified Code(s): D72.829 - Elevated white blood cell count, unspecified
[2018-06-27] MEDS ORDERED: SODIUM CHLORIDE 0.9% 500 ML IV STA (00:56)
[2018-06-27] MEDS ORDERED: ONDANSETRON INJ 2 MG/ML 2 ML VIAL IV PRN (01:16)
[2018-06-27] MEDS ORDERED: VANCOMYCIN CONSULT ACTIVE PRN (01:16)
[2018-06-27] MEDS ORDERED: PIPERACILL/TAZOBAC CONSULT ACTIVE PRN (01:38)
[2018-06-27] MEDS ORDERED: Nursing to Pharmacy Communication ONE (01:49)
[2018-06-27] MEDS ORDERED: VANCOMYCIN HCL 2,500 MG in SODIUM CHLORIDE 0.9% 500 ML IV ONE (02:00)
[2018-06-27] MEDS: LACTATED RINGER'S 1,000 ML IV SCH ×2 (02:18→10:49)
[2018-06-27] MEDS: PIPERACILLIN/TAZOBACTAM 3.375 GM in DEXTROSE 5% 100 ML IV SCH ×3 (02:18→17:54)
--- NOTE | 2018-06-27 02:34 | Pharmacy Report ---
Pharmacy Abx Initial Consult - Date of Service June 27, 2018 - Pharmacy Dosing Scope Date of Consult: 06/27/18 Consultation requested by: Dr. Piña Pharmacy is consulted to initiate vancomycin and Zosyn IV dosing therapy, order appropriate labs and adjust drug dose/frequency. - Subjective The patient is a 67 year old M admitted on 06/27/18 00:31. - Objective Height: 5 ft 10 in Weight: 94.5 kg Vital Signs (Past 12hrs): Vital Signs Temp Pulse Pulse Resp BP BP BP 06/27/18 01:16 37 C 94 H 16 138/80 06/27/18 00:51 36.8 C 77 20 97/55 L 06/26/18 23:00 77 22 100/64 06/26/18 22:28 79 20 06/26/18 22:00 93 H 20 127/80 06/26/18 21:30 89 20 115/77 06/26/18 21:12 83 16 118/70 06/26/18 20:27 114/77 06/26/18 20:15 06/26/18 20:08 94 H 24 114/77 06/26/18 18:54 37.9 C H 111 H 18 138/83 Pulse Ox 06/27/18 01:16 90 06/27/18 00:51 93 06/26/18 23:00 95 06/26/18 22:28 85 L 06/26/18 22:00 95 06/26/18 21:30 94 06/26/18 21:12 95 06/26/18 20:27 06/26/18 20:15 93 06/26/18 20:08 86 L 06/26/18 18:54 91 Lab Results (24hrs): Laboratory Tests (24 Hours) 06/26/18 06/26/18 19:25 19:25 WBC 16.41 H Neut # (Auto) 12.70 H Creatinine 0.88 Est Cr Clr Drug Dosing 95.5 Micro Results: 06/26/18 20:00 Blood Culture - Pending Blood 06/26/18 19:50 Blood Culture - Pending Blood - Assessment & Plan Assessment 67 year old M admitted with possible pneumonia Plan vancomycin/zosyn for treatment of pneumonia Vancomycin IV * Estimated PK Parameters: Vd 0.65 L/kg, Sylvester 0.08 hr-1, t1/2 8.6 hr * Loading dose: 2500 mg (26 mg/kg) * Maintenance dose: 1500 mg IV (15 mg/kg) every 10 hours * Goal trough level for pulmonary indication : 15 to 20 mcg/mL * Trough ordered for 06/29/18 Piperacillin/tazobactam * 4.5 g bolus administered over 30 minutes, then 3.375 g IV extended infusion every 8 hours for CrCl greater than 20 mL/min Pharmacy will continue to follow and will adjust dose/frequency as necessary. Thank you.
[2018-06-27] MEDS: MELOXICAM 7.5 MG TAB PO SCH ×2 (02:50→20:54)
[2018-06-27 02:51] LABS: INR 1.2 (0.9-1.1); Partial Thromboplastin Ratio 0.9; Partial Thromboplastin Time 25.4 Seconds (21.0-31.0); Prothrombin Time 11.9 Seconds (9.0-12.0)
[2018-06-27] MEDS: CYCLOBENZAPRINE HCL 10 MG TAB PO PRN ×2 (02:51→21:56)
[2018-06-27] MEDS: SENNA 8.6 MG TAB PO SCH ×2 (02:51→08:31)
[2018-06-27] MEDS: PANTOprazole 40 MG TAB PO SCH ×2 (02:51→20:54)
[2018-06-27] MEDS: GABAPENTIN 600 MG TAB PO SCH ×3 (02:51→20:54)
[2018-06-27] MEDS: VENLAFAXINE HCL XR 37.5 MG CAPXR PO SCH ×3 (02:51→20:54)
[2018-06-27] MEDS: ACETAMINOPHEN 325 MG TAB PO PRN ×2 (05:42→19:38)
[2018-06-27] MEDS: ENOXAPARIN INJ 40 MG/0.4 ML SYR SQ SCH (08:30)
[2018-06-27] MEDS: CHECK FENTANYL PATCH PLACEMENT SCH ×2 (08:30→17:54)
[2018-06-27 08:45] LABS: Basophils # (auto) 0.04 K/uL (0-0.2); Basophils % (auto) 0.2 %; Eosinophils # (auto) 0.49 K/uL (0-0.5); Hematocrit (blood only) 35.8 % (42-52); Hemoglobin 11.7 g/dL (14.0-18.0); Immature Granulocytes # (auto) 0.08 K/uL (0.00-0.02); Immature Granulocytes % (auto) 0.5 %; Lymphocytes # (auto) 1.73 K/uL (1.2-3.4); Lymphocytes % (auto) 10.7 %; Mean Corpuscular Hgb Conc 32.7 g/dL (32-36); Mean Corpuscular Volume 91.8 fL (80-100); Mean Platelet Volume 9.3 fL (7.4-10.4); Monocytes # (auto) 1.59 K/uL (0.11-0.59); Monocytes % (auto) 9.8 %; Neutrophils % (auto) 75.8 %; Platelet Count 305 K/uL (130-400); RDW Coefficient of Variation 13.1 % (11.5-14.5); RDW Standard Deviation 43.7 fL (36.4-46.3); White Blood Count 16.23 K/uL (4.8-10.8)
[2018-06-27 09:08] LABS: Albumin Level 2.3 gm/dl (3.4-5.0); BUN Creatinine Ratio 12.5 (10-20); Calcium 8.1 mg/dl (8.5-10.1); Creatinine Clr Calc Pharmacy 99.8 ml/min; Est GFR (African American) 105.7; Est GFR (Non-African American) 91.2; Potassium 3.8 mmol/L (3.5-5.1)
[2018-06-27 09:12] LABS: Albumin Globulin Ratio 0.5 (0.9-2); Bilirubin,Total 0.6 mg/dl (0.2-1); Globulin 4.6 gm/dl (2.5-4.0); Total Protein 6.9 gm/dl (6.4-8.2)
--- NOTE | 2018-06-27 13:17 | Family Medicine Progress Note ---
Date of Service June 27, 2018 Assessment & Plan (1) Sepsis: Mr. Alvarez is a 67-year-old male with a history of hypertension, chronic back pain, GERD, depression who presents to the emergency department due to a 1 month history of gradually worsening right sided back pain, cough and weakness. ED course: 1 L normal saline bolus, 15 mg IV ketorolac, duo nebs x1, 1 g magnesium sulfate, 4 mg IV Zofran, 1 g IV acetaminophen, 4.5 g IV Zosyn -Admitted to med/surg -On admission met criteria for sepsis with tachycardia, elevated white cell count, and pulmonary source of infection -On admission noted to have desaturated to 85% on room air, continue oxygen as needed. -In ED (06/26) CT abdomen and pelvis showed a right sided pneumonia w/a small, mildly loculated pleural effusion -Treatment started with IV Zosyn and vancomycin. Vancomycin was discontinued once MRSA swab was negative today 06/27. -CT of Chest ordered today (06/27): Radiology report reviewed. Small to moderate partially loculated pleural effusion at the right lung base with associated consolidation. Representing atelectasis and/vs. superimposed pneumonia. Left lung was clear. Mild cardiac enlargement. Cholelitiasis. Enlarged subcarinal node similar to previous. -Blood cultures drawn x2 and pending -650 mg p.o. acetaminophen ordered every 4 hours as needed for pain or fever -4 mg IV Zofran ordered as needed for nausea -xopenex nebs ordered prn SOB/wheeze CODE STATUS: Full Disposition: Admit to med/surg DVT prophylaxis: Lovenox 40 mg SQ daily F/E/N: Regular diet ordered. Hyponatremia with sodium of 131, and low chloride at 95. Patient also has a low magnesium of 1.7 (repleted in ED). Likely related to poor oral intake, recheck BMP tomorrow. Ringer's lactate ordered at 125 mLs/hour x2 bags (2) Leukocytosis: Suspect secondary to pulmonary infectious process. In ED (06/26) 16.41 Today 06/27 = 16.23 with left shift. Will continue to monitor with CBC. (3) Fever: -650 mg p.o. acetaminophen ordered every 4 hours as needed for pain or fever -No temperatures equal to or greater than 38.0 C. -Did have elevated temp on ED presentation of 37.9 C. -This morning 37.6 C at 7am and treated with Tylenol (4) Pneumonia: -In ED (06/26) CT abdomen and pelvis showed a right sided pneumonia w/a small, mildly loculated pleural effusion -Treatment started with IV Zosyn and vancomycin. Vancomycin was discontinued once MRSA swab was negative today 06/27. -CT of Chest ordered today (06/27): Radiology report reviewed. Small to moderate partially loculated pleural effusion at the right lung base with associated consolidation. Representing atelectasis and/vs. superimposed pneumonia. -Procalcitonin today was negative. (5) Hypoxia: -On admission noted to have desaturated to 85% on room air, continue oxyge n as needed. (6) Right upper quadrant abdominal pain: right sided pleural effusion most likely but also has cholelithiasis, gallbladder sludge, hepatic steatosis as mentioned in Gall Bladder U/S performed in ED. IMPRESSION: 1. Gallbladder sludge with possible cholelithiasis. No sonographic evidence of acute cholecystitis. 2. No biliary ductal dilation. 3. Suggested hepatic steatosis. (7) Lymphadenopathy: -CT abdomen/pelvis shows enlarged mediastinal lymph nodes with prominent lymph nodes of the abdomen and pelvis, see CT report for full details -Outpatient follow-up recommended -CT Chest showed enlarged subcarinal lymph node (8) Hypertension: -Hold home amlodipine given hypotensive in the emergency department (9) Chronic back pain: -Continue home regimen, including cyclobenzaprine, fentanyl, gabapentin, meloxicam -With regards to new right-sided abdominal and back pain, this is likely related to the pleural effusion and pneumonia causing diaphragmatic irritation. The patient's CT abdomen pelvis did show right-sided hydronephrosis, which may have represented a recently passed stone or infection. The patient, however, denies any urinary symptoms, and UA is clean, making an infection unlikely. -He also does have gallbladder sludge noted on his CT abdomen pelvis, however there is no evidence of cholecystitis. Cholelithiasis was noted on Chest CT. (10) GERD (gastroesophageal reflux disease): -Change from omeprazole to pantoprazole (11) Depression: -Continue home venlafaxine Supervising Physician Co-Signing Physician Notes I saw and examined the patient independently. I discussed the plan of care with the resident with the following summary/exceptions: 67 yo M w/ hx of HTN, GERD, and depression who presents with right-sided flank pain and RLL pneumonia. Today, he is feeling quite well. No major complaints. Right-flank pain is improved. Reduced breath sounds on the right. 1) RLL pneumonia - CT chest on 06/27 showed a right-sided pleural effusion with RLL consolidation. Continue Zosyn. Stopped vanc on 06/27 given negative MRSA swab. 2) HTN - Per report, he had low BP in the ED, so holding HTN meds at present. Will restart as needed. 3) Back pain - Continue pain meds as able. Subjective Mr. Alvarez has no new acute complaints or concerns. He notes that he has had chronic right sided pain and persistent cough, but weakness was acute leading him to come to hospital. He denies fever, chills, nausea, vomiting, diarrhea, dysuria. He states he gets his medical care from [place]. Physical Exam Vital Signs (Past 24 Hours): Last Vital Signs Temp 37.6 C H 06/27/18 07:15 Pulse 78 06/27/18 07:15 Resp 16 06/27/18 07:15 BP 105/63 06/27/18 07:15 Pulse Ox 90 06/27/18 07:15 Constitutional: WD/WN, vitals as above + disheveled, cooperative and comfortable; no altered mental status Eyes: + anicteric sclerae and EOM intact bilaterally Neck: normal visual inspection and trachea midline Respiratory: normal respiratory effort and able to speak in complete sentences; no respiratory distress and does not use accessory muscles Auscultation: + crackles (posterior right lung base with patient laying in right lateral recumbent); no rales and no wheezes Cardiovascular: Rate/Rhythm: regular rate and regular rhythm Extremities: no pedal edema Musculoskeletal: Head/Neck/Chest: normocephalic and head atraumatic Skin: no rashes, warm and dry Neurologic: moves all extremities sleeping but easily arousable Psychiatric: A+Ox3, euthymic affect Results & Data Laboratory Results Laboratory Results - last 24 hr 06/26/18 06/26/18 06/26/18 19:25 19:25 19:25 WBC 16.41 H RBC 4.15 L Hgb 12.6 L Hct 37.8 L MCV 91.1 MCH 30.4 MCHC 33.3 RDW Std Deviation 43.1 RDW Coeff of [place] 13.0 Plt Count 349 MPV 9.4 Immature Gran % (Auto) 0.5 Neut % (Auto) 77.5 Lymph % (Auto) 7.7 [place] % (Auto) 13.2 Eos % (Auto) 1.0 Baso % (Auto) 0.1 Immature Gran # (Auto) 0.08 H Neut # (Auto) 12.70 H Lymph # (Auto) 1.27 [place] # (Auto) 2.17 H Eos # (Auto) 0.17 Baso # (Auto) 0.02 Toxic Vacuolation 1+ PT 11.9 INR 1.2 H APTT 25.4 PTT Ratio 0.9 Sodium 131 L Potassium 4.0 Chloride 95 L Carbon Dioxide 30 Anion Gap 6.0 BUN 13 Creatinine 0.88 Est Cr Clr Drug Dosing 95.5 Est GFR ( Amer) 103.7 Est GFR (Non-Af Amer) 89.5 BUN/Creatinine Ratio 15.2 Glucose 128 H Calcium 8.5 Magnesium 1.7 L Total Bilirubin 0.8 AST 24 ALT 27 Alkaline Phosphatase 78 Total Protein 7.8 Albumin 2.7 L Globulin 5.1 H Albumin/Globulin Ratio 0.5 L Lipase 75 Procalcitonin Urine Color Urine Appearance Urine pH Ur Specific [place] Urine Protein Urine Glucose (UA) Urine Ketones Urine Blood Urine Nitrite Urine Bilirubin Urine Urobilinogen Ur Leukocyte Esterase Urine WBC (Auto) Urine RBC (Auto) U Hyaline Cast (Auto) U Epithel Cells (Auto) Urine Bacteria (Auto) Nasal Screen MRSA (PCR) 06/26/18 06/27/18 06/27/18 21:05 08:26 08:26 WBC 16.23 H RBC 3.90 L Hgb 11.7 L Hct 35.8 L MCV 91.8 MCH 30.0 MCHC 32.7 RDW Std Deviation 43.7 RDW Coeff of [place] 13.1 Plt Count 305 MPV 9.3 Immature Gran % (Auto) 0.5 Neut % (Auto) 75.8 Lymph % (Auto) 10.7 [place] % (Auto) 9.8 Eos % (Auto) 3.0 Baso % (Auto) 0.2 Immature Gran # (Auto) 0.08 H Neut # (Auto) 12.30 H Lymph # (Auto) 1.73 [place] # (Auto) 1.59 H Eos # (Auto) 0.49 Baso # (Auto) 0.04 Toxic Vacuolation PT INR APTT PTT Ratio Sodium Potassium Chloride Carbon Dioxide Anion Gap BUN Creatinine Est Cr Clr Drug Dosing Est GFR ( Amer) Est GFR (Non-Af Amer) BUN/Creatinine Ratio Glucose Calcium Magnesium Total Bilirubin AST ALT Alkaline Phosphatase Total Protein Albumin Globulin Albumin/Globulin Ratio Lipase Procalcitonin 0.19 Urine Color Yellow Urine Appearance Clear Urine pH 6.0 Ur Specific [place] 1.017 Urine Protein Trace H Urine Glucose (UA) Negative Urine Ketones Negative Urine Blood Negative Urine Nitrite Negative Urine Bilirubin Negative Urine Urobilinogen Negative Ur Leukocyte Esterase Negative Urine WBC (Auto) 0 Urine RBC (Auto) 0-4 U Hyaline Cast (Auto) 0 U Epithel Cells (Auto) 0-5 Urine Bacteria (Auto) Negative Nasal Screen MRSA (PCR) 06/27/18 06/27/18 06/27/18 08:26 08:30 Unknown WBC RBC Hgb Hct MCV MCH MCHC RDW Std Deviation RDW Coeff of [place] Plt Count MPV Immature Gran % (Auto) Neut % (Auto) Lymph % (Auto) [place] % (Auto) Eos % (Auto) Baso % (Auto) Immature Gran # (Auto) Neut # (Auto) Lymph # (Auto) [place] # (Auto) Eos # (Auto) Baso # (Auto) Toxic Vacuolation PT INR APTT PTT Ratio Sodium 133 L Potassium 3.8 Chloride 99 Carbon Dioxide 31 Anion Gap 4.0 BUN 11 Creatinine 0.84 Est Cr Clr Drug Dosing 99.8 Est GFR ( Amer) 105.7 Est GFR (Non-Af Amer) 91.2 BUN/Creatinine Ratio 12.5 Glucose 116 H Calcium 8.1 L Magnesium Cancelled 2.0 Total Bilirubin 0.6 AST 22 ALT 27 Alkaline Phosphatase 69 Total Protein 6.9 Albumin 2.3 L Globulin 4.6 H Albumin/Globulin Ratio 0.5 L Lipase Procalcitonin Urine Color Urine Appearance Urine pH Ur Specific [place] Urine Protein Urine Glucose (UA) Urine Ketones Urine Blood Urine Nitrite Urine Bilirubin Urine Urobilinogen Ur Leukocyte Esterase Urine WBC (Auto) Urine RBC (Auto) U Hyaline Cast (Auto) U Epithel Cells (Auto) Urine Bacteria (Auto) Nasal Screen MRSA (PCR) Negative Medications Administered Acetaminophen (Tylenol) 650 mg PO Q4H PRN PRN Reason: pain/fever Stop: 07/27/18 01:15 Last Admin: 06/27/18 05:42 Dose: 650 mg Documented by: [id number] Cyclobenzaprine HCl (Flexeril) 10 mg PO HS PRN PRN Reason: Muscle Spasm Stop: 07/27/18 01:15 Last Admin: 06/27/18 02:51 Dose: 10 mg Documented by: [id number] Enoxaparin Sodium (Lovenox) 40 mg SQ Q24H [facility] Stop: 07/27/18 08:59 Last Admin: 06/27/18 08:30 Dose: 40 mg Documented by: [id number] Gabapentin (Neurontin) 600 mg PO BID [facility]AN[facility] Stop: 07/27/18 01:59 Last Admin: 06/27/18 08:31 Dose: 600 mg Documented by: [id number] Admin: 06/27/18 02:51 Dose: 600 mg Documented by: [id number] Lactated Ringer's (Lr) 1,000 mls @ 125 mls/hr IV .Q8H BLANCA Stop: 06/27/18 17:15 Last Admin: 06/27/18 10:49 Dose: 125 mls/hr Documented by: [id number] Infusion: 06/27/18 10:41 Dose: 0 mls/hr Documented by: [id number] Admin: 06/27/18 02:18 Dose: 125 mls/hr Documented by: [id number] Piperacillin Sod/Tazobactam (Sod 3.375 gm/ Dextrose) 115 mls @ 28.75 mls/hr IV Q8H BLANCA; Protocol Stop: 07/04/18 01:59 Last Infusion: 06/27/18 14:01 Dose: 0 mls/hr Documented by: [id number] Admin: 06/27/18 09:43 Dose: 28.8 mls/hr Documented by: [id number] Infusion: 06/27/18 06:49 Dose: 0 mls/hr Documented by: [id number] Admin: 06/27/18 02:18 Dose: 28.8 mls/hr Documented by: [id number] Ioversol (Optiray 320 100ml) 96 ml IV ONCE PRN PRN Reason: Interaction Checking Stop: 06/30/18 22:10 Last Admin: 06/26/18 22:12 Dose: 96 ml Documented by: [id number] Meloxicam (Mobic) 7.5 mg PO HS [facility]ANCA Stop: 07/27/18 02:59 Last Admin: 06/27/18 02:50 Dose: 7.5 mg Documented by: [id number] Miscellaneous (Fentanyl Patch Check Placement) 1 ea N/A QS [facility]ANCA Stop: 07/27/18 07:59 Last Admin: 06/27/18 08:30 Dose: 1 ea Documented by: [id number] Pantoprazole Sodium (Protonix) 40 mg PO HS [facility] Stop: 07/27/18 02:59 Last Admin: 06/27/18 02:51 Dose: 40 mg Documented by: [id number] Sennosides (Senokot) 8.6 mg PO QAM [facility] Stop: 07/27/18 01:59 Last Admin: 06/27/18 08:31 Dose: 8.6 mg Documented by: [id number] Admin: 06/27/18 02:51 Dose: 8.6 mg Documented by: [id number] Venlafaxine HCl (Effexor Extended Release) 37.5 mg PO BID [facility] Stop: 07/27/18 01:59 Last Admin: 06/27/18 08:31 Dose: 37.5 mg Documented by: [id number] Admin: 06/27/18 02:51 Dose: 37.5 mg Documented by: [id number] (1) Fever Fever type: unspecified Qualified Code(s): R50.9 - Fever, unspecified (2) Leukocytosis Leukocytosis type: unspecified Qualified Code(s): D72.829 - Elevated white blood cell count, unspecified
--- NOTE | 2018-06-27 14:06 | CT Scan Report ---
CT SCAN OF THE CHEST WITHOUT IV CONTRAST CLINICAL HISTORY: Hypoxia. COMPARISON STUDY: Chest x-ray dated 06/26/2018. Chest CT dated 02/02/2010. Abdominal CT dated 06/26/2018 . TECHNIQUE: CT scan of the thorax was performed from the thoracic inlet to the upper abdomen. Images are reviewed in the axial, sagittal, and coronal planes. IV contrast was not administered for this ex amination as per the referring clinician. A dose lowering technique was utilized adhering to the jaspreet dean of [facility]. CT DOSE: 680.97 mGy.cm FINDINGS: Thyroid: Imaged portions of the thyroid gland are normal in size and attenuation. Thoracic aorta: The thoracic aorta is normal in caliber and demonstrates standard 3-vessel arch anato my. Heart: The heart is mildly enlarged and without pericardial effusion. The coronary arteries are dense ly calcified. There is diminished attenuation of the cardiac blood pool as compared to the myocardium suggesting anemia. Lungs and pleural spaces: Evaluation of the lung parenchyma is modestly degraded by motion artifact. There is a small to moderate and at least partially loculated pleural effusion at the right lung base with associated consolidation and elevation of the right hemidiaphragm. Mediastinum: Enlarged subcarinal node measures 3.6 x 2.5 cm. Liza: Not well assessed without IV contrast. Axillae: There is no axillary lymphadenopathy. Upper abdomen: A calcified gallstone is noted. Partially visualized upper abdominal viscera is within normal limits. Skeletal structures: The skeletal structures are osteopenic. Degenerative changes noted throughout th e thoracic spine. Mild compression deformities are noted in the lower thoracic region. No lytic or bl astic bony lesions are seen. There are healed right-sided rib fractures. IMPRESSION: 1. There is a small to moderate and at least partially loculated pleural effusion at the right lung b ase with associated consolidation. This could represent atelectasis and/or superimposed pneumonia. Cl inical correlation will be required. 2. The left lung is clear. 3. Mild cardiac enlargement. 4. Cholelithiasis. 5. An enlarged subcarinal node is similar to previous. Electronically signed by: Kody Leonardo M.D. 06/27/2018 2:05 PM
[2018-06-27] MEDS ORDERED: VANCOMYCIN HCL 1,500 MG in SODIUM CHLORIDE 0.9% 500 ML IV SCH (16:00)
[2018-06-27] MEDS: LEVALBUTEROL HCL 0.63 MG/3 ML NEB NEB PRN (20:00)
[2018-06-28] MEDS: CHECK FENTANYL PATCH PLACEMENT SCH ×4 (00:40→23:47)
[2018-06-28] MEDS: LEVALBUTEROL HCL 0.63 MG/3 ML NEB NEB PRN ×2 (01:43→15:50)
[2018-06-28] MEDS: ACETAMINOPHEN 325 MG TAB PO PRN ×3 (01:53→23:47)
[2018-06-28] MEDS: PIPERACILLIN/TAZOBACTAM 3.375 GM in DEXTROSE 5% 100 ML IV SCH ×2 (01:53→09:07)
[2018-06-28 05:55] LABS: Basophils # (auto) 0.03 K/uL (0-0.2); Basophils % (auto) 0.2 %; Eosinophils % (auto) 2.8 %; Hematocrit (blood only) 36.2 % (42-52); Hemoglobin 11.7 g/dL (14.0-18.0); Immature Granulocytes # (auto) 0.06 K/uL (0.00-0.02); Immature Granulocytes % (auto) 0.4 %; Lymphocytes # (auto) 1.45 K/uL (1.2-3.4); Lymphocytes % (auto) 10.2 %; Mean Corpuscular Hgb Conc 32.3 g/dL (32-36); Mean Corpuscular Volume 92.8 fL (80-100); Mean Platelet Volume 9.4 fL (7.4-10.4); Monocytes # (auto) 1.44 K/uL (0.11-0.59); Monocytes % (auto) 10.1 %; Neutrophils # (auto) 10.88 K/uL (1.4-6.5); Neutrophils % (auto) 76.3 %; Platelet Count 328 K/uL (130-400); RDW Coefficient of Variation 13.3 % (11.5-14.5); RDW Standard Deviation 45.5 fL (36.4-46.3); White Blood Count 14.26 K/uL (4.8-10.8)
[2018-06-28 06:27] LABS: Albumin Level 2.2 gm/dl (3.4-5.0); BUN Creatinine Ratio 10.6 (10-20); Calcium 7.7 mg/dl (8.5-10.1); Creatinine Clr Calc Pharmacy 85.6 ml/min; Est GFR (African American) 92.7; Potassium 3.7 mmol/L (3.5-5.1)
[2018-06-28 06:30] LABS: Albumin Globulin Ratio 0.5 (0.9-2); Bilirubin,Total 0.4 mg/dl (0.2-1); Globulin 4.8 gm/dl (2.5-4.0)
[2018-06-28] MEDS: ENOXAPARIN INJ 40 MG/0.4 ML SYR SQ SCH (07:23)
[2018-06-28] MEDS: VENLAFAXINE HCL XR 37.5 MG CAPXR PO SCH ×2 (07:23→20:30)
[2018-06-28] MEDS: SENNA 8.6 MG TAB PO SCH (07:23)
[2018-06-28] MEDS: GABAPENTIN 600 MG TAB PO SCH ×2 (07:23→20:30)
[2018-06-28 08:30] LABS: Estimated Average Glucose 128 mg/dl; Hemoglobin A1C 6.1 % (4.5-5.6)
[2018-06-28] MEDS: fentaNYL 100 MCG/HR TDSY TD SCH (09:06)
--- NOTE | 2018-06-28 13:24 | Family Medicine Progress Note ---
Date of Service June 28, 2018 Assessment & Plan (1) Sepsis: Mr. Alvarez is a 67-year-old male with a history of hypertension, chronic back pain, GERD, depression who presents to the emergency department due to a 1 month history of gradually worsening right sided back pain, cough and weakness. ED course: 1 L normal saline bolus, 15 mg IV ketorolac, duo nebs x1, 1 g magnesium sulfate, 4 mg IV Zofran, 1 g IV acetaminophen, 4.5 g IV Zosyn -Admitted to med/surg -On admission met criteria for sepsis with tachycardia, elevated white cell count, and pulmonary source of infection -On admission noted to have desaturated to 85% on room air, continue oxygen as needed. -In ED (06/26) CT abdomen and pelvis showed a right sided pneumonia w/a small, mildly loculated pleural effusion -Treatment started with IV Zosyn and vancomycin. Vancomycin was discontinued once MRSA swab was negative today 06/27. -CT of Chest ordered today (06/27): Radiology report reviewed. Small to moderate partially loculated pleural effusion at the right lung base with associated consolidation. Representing atelectasis and/vs. superimposed pneumonia. Left lung was clear. Mild cardiac enlargement. Cholelitiasis. Enlarged subcarinal node similar to previous. -Blood cultures drawn x2, no growth to date -650 mg p.o. acetaminophen ordered every 4 hours as needed for pain or fever -4 mg IV Zofran ordered as needed for nausea -xopenex nebs ordered prn SOB/wheeze Suspected source Pulmonary - pneumonia. Continue with Zosyn abx. CODE STATUS: Full Disposition: Admit to med/surg DVT prophylaxis: Lovenox 40 mg SQ daily F/E/N: Regular diet ordered. Hyponatremia with sodium of 131, and low chloride at 95. Patient also has a low magnesium of 1.7 (repleted in ED). Likely related to poor oral intake, recheck BMP tomorrow. Ringer's lactate ordered at 125 mLs/hour x2 bags (2) Leukocytosis: Suspect secondary to pulmonary infectious process. In ED (06/26) 16.41 06/27 = 16.23 06/28 = 14.26 Will continue to monitor with CBC. (3) Fever: -650 mg p.o. acetaminophen ordered every 4 hours as needed for pain or fever -No temperatures equal to or greater than 38.0 C. -Did have elevated temp on ED presentation of 37.9 C. -On 06/27 = 37.6 C at 7am and treated with Tylenol This morning afebrile (4) Pneumonia: -In ED (06/26) CT abdomen and pelvis showed a right sided pneumonia w/a small, mildly loculated pleural effusion -Treatment started with IV Zosyn and vancomycin. Vancomycin was discontinued once MRSA swab was negative today 06/27. Continue with IV Zosyn. -CT of Chest ordered today (06/27): Radiology report reviewed. Small to moderate partially loculated pleural effusion at the right lung base with associated consolidation. Representing atelectasis and/vs. superimposed pneumonia. -Procalcitonin was negative. Considered perhaps fungal pneumonia like coccidioidomycosis ([place] fever) but doubt because of no travel [place] recently. No history of spelunking or venturing inside caves for potential histoplasmosis. - Also WBC decreased on Zosyn, suspect bacterial cause, will continue to monitor and if not improving will consider fungal workup. - Doubt Legionella (5) Hypoxia: -On admission noted to have desaturated to 85% on room air, continue oxygen as needed. 91% on 2L NC this morning (6) Pleural effusion, right: U/S provided courtesy of Kody Matute PA-C today. Noted that Pleural effusion was small and amount not large enough to warrant thoracentesis. He noted loculations. Recommended Acapella incentive spirometry to provide vibratory effect to break up loculations. - Most likely etiology pneumonia - consideration for transudative process secondary to hypoalbuminemia if no improvement on outpatient follow up (7) Right upper quadrant abdominal pain: right sided pleural effusion most likely but also has cholelithiasis, gallbladder sludge, hepatic steatosis as mentioned in Gall Bladder U/S performed in ED. IMPRESSION: 1. Gallbladder sludge with possible cholelithiasis. No sonographic evidence of acute cholecystitis. 2. No biliary ductal dilation. 3. Suggested hepatic steatosis. (8) Lymphadenopathy: -CT abdomen/pelvis shows enlarged mediastinal lymph nodes with prominent lymph nodes of the abdomen and pelvis, see CT report for full details -Outpatient follow-up recommended -CT Chest showed enlarged subcarinal lymph node - LAD concerning for underlying leukemia/lymphoma - Pheripheral smear path ordered (9) Hypertension: -Hold home amlodipine given hypotensive in the emergency department -This morning also hypotensive 91/45, but normal this afternoon 124/76 (15:25) -Will continue to hold considering septic diagnosis (10) Chronic back pain: -Continue home regimen, including cyclobenzaprine, fentanyl, gabapentin, meloxicam -With regards to new right-sided abdominal and back pain, this is likely related to the pleural effusion and pneumonia causing diaphragmatic irritation. The patient's CT abdomen pelvis did show right-sided hydronephrosis, which may have represented a recently passed stone or infection. The patient, however, denies any urinary symptoms, and UA is clean, making an infection unlikely. -He also does have gallbladder sludge noted on his CT abdomen pelvis, however there is no evidence of cholecystitis. Cholelithiasis was noted on Chest CT. (11) GERD (gastroesophageal reflux disease): -Change from omeprazole to pantoprazole (12) Depression: -Continue home venlafaxine Supervising Physician Co-Signing Physician Notes I saw and examined the patient independently. I discussed the plan of care with the resident with the following summary/exceptions: 67 yo M w/ hx of HTN, GERD, and depression who presents with right-sided flank pain and RLL pneumonia. Today, he is feeling quite well. No major complaints. Right-flank pain is improved. Weaning O2. Overall, doing quite well. 1) RLL pneumonia - CT chest on 06/27 showed a right-sided pleural effusion with RLL consolidation. Continue Zosyn. Stopped vanc on 06/27 given negative MRSA swab. Will switch to Augmentin tomorrow if he is discharged. 2) HTN - Per report, he had low BP in the ED, so holding HTN meds at present. Will restart as needed. 3) Back pain - Continue pain meds as able. Subjective Mr. Alvarez states he feels improved today. He reports that pain he has had to his right side is located to the right flank/right lateral lumbar area. He notes that he has had this pain for over a month and that it is different from chronic back pain. He states that he came to ED because his made him as she was worried because for the past several days he had generalized weakness that was new for him. He does not endorse any alcohol use, recent hospitalization, only a 3 pack year history and quit at age 22, has had a blood transfusion following being g[place] working about 3 years ago. He states he has no history of Hep C, Hep B, liver disease, lung disease. He denies shortness of breath, fever, chills, nausea, vomiting, diarrhea. Physical Exam Vital Signs (Past 24 Hours): Last Vital Signs Temp 37.2 C 06/28/18 07:30 Pulse 70 06/28/18 07:30 Resp 18 06/28/18 07:30 BP 91/45 L 06/28/18 07:30 Pulse Ox 91 06/28/18 07:30 Constitutional: WD/WN, vitals as above + disheveled, cooperative and comfortable; no altered mental status Eyes: + anicteric sclerae and EOM intact bilaterally Neck: normal visual inspection and trachea midline Respiratory: normal respiratory effort and able to speak in complete sentences; no respiratory distress and does not use accessory muscles Auscultation: + crackles (mild right posterior lung base with patient sitting upright on side of bed); no rales and no wheezes Cardiovascular: Rate/Rhythm: regular rate and regular rhythm Extremities: no pedal edema Gastrointestinal (Abdomen): Inspection/Auscultation: abdomen normal to inspection and normal bowel sounds; abdomen not distended Percussion/Palpation: abdomen soft; abdomen nontender and no guarding negative gipson's sign, negative for tenderness at McBurney's point Musculoskeletal: Head/Neck/Chest: normocephalic and head atraumatic Skin: no rashes, warm and dry Neurologic: moves all extremities Psychiatric: A+Ox3, euthymic affect Results & Data Laboratory Results Laboratory Results - last 24 hr 06/28/18 06/28/18 06/28/18 05:22 05:22 05:22 WBC 14.26 H RBC 3.90 L Hgb 11.7 L Hct 36.2 L MCV 92.8 MCH 30.0 MCHC 32.3 RDW Std Deviation 45.5 RDW Coeff of Netta 13.3 Plt Count 328 MPV 9.4 Immature Gran % (Auto) 0.4 Neut % (Auto) 76.3 Lymph % (Auto) 10.2 [place] % (Auto) 10.1 Eos % (Auto) 2.8 Baso % (Auto) 0.2 Immature Gran # (Auto) 0.06 H Neut # (Auto) 10.88 H Lymph # (Auto) 1.45 [place] # (Auto) 1.44 H Eos # (Auto) 0.40 Baso # (Auto) 0.03 Absolute Nucleated RBC 0.00 Nucleated RBC % (auto) 0.0 Peripher Smr Path Cons Sodium 134 L Potassium 3.7 Chloride 100 Carbon Dioxide 30 Anion Gap 4.0 BUN 10 Creatinine 0.98 Est Cr Clr Drug Dosing 85.6 Est GFR ( Amer) 92.7 Est GFR (Non-Af Amer) 80.0 BUN/Creatinine Ratio 10.6 Glucose 123 H Estimat Average Glucose Hemoglobin A1c Calcium 7.7 L Total Bilirubin 0.4 AST 19 ALT 26 Alkaline Phosphatase 67 Total Protein 7.0 Albumin 2.2 L Globulin 4.8 H Albumin/Globulin Ratio 0.5 L Prealbumin 4.6 L 06/28/18 05:22 WBC RBC Hgb Hct MCV MCH MCHC RDW Std Deviation RDW Coeff of [place] Plt Count MPV Immature Gran % (Auto) Neut % (Auto) Lymph % (Auto) [place] % (Auto) Eos % (Auto) Baso % (Auto) Immature Gran # (Auto) Neut # (Auto) Lymph # (Auto) [place] # (Auto) Eos # (Auto) Baso # (Auto) Absolute Nucleated RBC Nucleated RBC % (auto) Peripher Smr Path Cons Sodium Potassium Chloride Carbon Dioxide Anion Gap BUN Creatinine Est Cr Clr Drug Dosing Est GFR ( Amer) Est GFR (Non-Af Amer) BUN/Creatinine Ratio Glucose Estimat Average Glucose 128 Hemoglobin A1c 6.1 H Calcium Total Bilirubin AST ALT Alkaline Phosphatase Total Protein Albumin Globulin Albumin/Globulin Ratio Prealbumin Medications Administered Acetaminophen (Tylenol) 650 mg PO Q4H PRN PRN Reason: pain/fever Stop: 07/27/18 01:15 Last Admin: 06/28/18 07:22 Dose: 650 mg Documented by: [id number] Admin: 06/28/18 01:53 Dose: 650 mg Documented by: [id number] Admin: 06/27/18 19:38 Dose: 650 mg Documented by: [id number] Admin: 06/27/18 05:42 Dose: 650 mg Documented by: [id number] Cyclobenzaprine HCl (Flexeril) 10 mg PO HS PRN PRN Reason: Muscle Spasm Stop: 07/27/18 01:15 Last Admin: 06/27/18 21:56 Dose: 10 mg Documented by: [id number] Admin: 06/27/18 02:51 Dose: 10 mg Documented by: [id number] Enoxaparin Sodium (Lovenox) 40 mg SQ Q24H [facility] Stop: 07/27/18 08:59 Last Admin: 06/28/18 07:23 Dose: 40 mg Documented by: [id number] Admin: 06/27/18 08:30 Dose: 40 mg Documented by: [id number] Fentanyl (Duragesic) 100 mcg TD Q2D@0900 [facility] Stop: 07/12/18 08:59 Last Admin: 06/28/18 09:06 Dose: 100 mcg Documented by: [id number] Gabapentin (Neurontin) 600 mg PO BID [facility] Stop: 07/27/18 01:59 Last Admin: 06/28/18 07:23 Dose: 600 mg Documented by: [id number] Admin: 06/27/18 20:54 Dose: 600 mg Documented by: [id number] Admin: 06/27/18 08:31 Dose: 600 mg Documented by: [id number] Admin: 06/27/18 02:51 Dose: 600 mg Documented by: [id number] Piperacillin Sod/Tazobactam (Sod 3.375 gm/ Dextrose) 115 mls @ 28.75 mls/hr IV Q8H [facility]; Protocol Stop: 07/04/18 01:59 Last Admin: 06/28/18 09:07 Dose: 28.8 mls/hr Documented by: [id number] Infusion: 06/28/18 05:17 Dose: 0 mls/hr Documented by: [id number] Admin: 06/28/18 01:53 Dose: 28 mls/hr Documented by: [id number] Infusion: 06/27/18 21:56 Dose: 0 mls/hr Documented by: [id number] Admin: 06/27/18 17:54 Dose: 28.8 mls/hr Documented by: [id number] Infusion: 06/27/18 14:01 Dose: 0 mls/hr Documented by: [id number] Admin: 06/27/18 09:43 Dose: 28.8 mls/hr Documented by: [id number] Infusion: 06/27/18 06:49 Dose: 0 mls/hr Documented by: [id number] Admin: 06/27/18 02:18 Dose: 28.8 mls/hr Documented by: [id number] Ioversol (Optiray 320 100ml) 96 ml IV ONCE PRN PRN Reason: Interaction Checking Stop: 06/30/18 22:10 Last Admin: 06/26/18 22:12 Dose: 96 ml Documented by: [id number] Levalbuterol HCl (Xopenex 0.63 Mg/3 Ml Neb) 0.63 mg NEB Q6R PRN PRN Reason: SOB or wheeze Stop: 07/27/18 01:59 Last Admin: 06/28/18 01:43 Dose: 0.63 mg Documented by: [id number] Admin: 06/27/18 20:00 Dose: 0.63 mg Documented by: [id number] Meloxicam (Mobic) 7.5 mg PO [facility] Stop: 07/27/18 02:59 Last Admin: 06/27/18 20:54 Dose: 7.5 mg Documented by: [id number] Admin: 06/27/18 02:50 Dose: 7.5 mg Documented by: [id number] Miscellaneous (Fentanyl Patch Check Placement) 1 ea N/A QS [facility] Stop: 07/27/18 07:59 Last Admin: 06/28/18 07:21 Dose: 1 ea Documented by: [id number] Admin: 06/28/18 00:40 Dose: 1 ea Documented by: [id number] Admin: 06/27/18 17:54 Dose: 1 ea Documented by: [id number] Admin: 06/27/18 08:30 Dose: 1 ea Documented by: [id number] Miscellaneous (Fentanyl Patch Remove & Waste) 1 ea N/A Q2D@0859 [facility] Stop: 07/28/18 08:58 Last Admin: 06/28/18 07:22 Dose: 1 ea Documented by: [id number] Cosigned by: [id number] Pantoprazole Sodium (Protonix) 40 mg PO [facility] Stop: 07/27/18 02:59 Last Admin: 06/27/18 20:54 Dose: 40 mg Documented by: [id number] Admin: 06/27/18 02:51 Dose: 40 mg Documented by: [id number] [facility]ennosides ([facility]okot) [facility] Stop: 07/27/18 01:59 Last Admin: 06/28/18 07:23 Dose: 8.6 mg Documented by: [id number] Admin: 06/27/18 08:31 Dose: 8.6 mg Documented by: [id number] Admin: 06/27/18 02:51 Dose: 8.6 mg Documented by: [id number] Venlafaxine HCl (Effexor Extended Release) 37.5 mg PO BID [facility] Stop: 07/27/18 01:59 Last Admin: 06/28/18 07:23 Dose: 37.5 mg Documented by: [id number] Admin: 06/27/18 20:54 Dose: 37.5 mg Documented by: [id number] Admin: 06/27/18 08:31 Dose: 37.5 mg Documented by: [id number] Admin: 06/27/18 02:51 Dose: 37.5 mg Documented by: [id number] (1) Fever Fever type: unspecified Qualified Code(s): R50.9 - Fever, unspecified (2) Leukocytosis Leukocytosis type: unspecified Qualified Code(s): D72.829 - Elevated white blood cell count, unspecified
--- NOTE | 2018-06-28 17:07 | Pulmonary Consultation ---
Date of Consultation June 28, 2018 Assessment & Plan (1) Pleural effusion, right: * Question of pleural effusion versus elevated diaphragm versus pneumonia versus atelectasis on chest x-ray and on CT scan of chest * Bedside ultrasound reveals very little fluid with evidence of atelectasis * At this point there is no indication for thoracentesis or invasive procedure * We will continue to treat for underlying pneumonia and ambulate the patient as tolerated * Would also recommend incentive spirometry for this patient. * Will start flutter valve to try and break up some of the mucus * Agree with current antibiotic treatment. (2) Pneumonia: * Evidence of pneumonia versus pneumonitis on chest x-ray and CT scan of the chest * Significant improvement with antibiotic treatment * Continue current regimen * No indication for outpatient follow-up (3) Hypoxia: * No history of asthma, COPD * No significant history of tobacco abuse * Most likely etiology is pneumonia with atelectasis * Continue current treatment regimen * Follow expectantly (4) DVT prophylaxis: * Ambulate as tolerated * Continue Lovenox Thank you for including us in the care of this patient. Please refer to Dr. Ramos's addendum for any further recommendations. Supervising Physician Co-Signing Physician Notes I have seen and examined this patient with [Kody Matute PA-C] and agree with his assessment and plan of care. We are going to continue with current plan of care as prescribed. Dr. Obinna Ramos. History of Present Illness Reason for Consultation: Shortness of breath, pneumonia, pleural effusion Requesting Physician: Dr. 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 On imaging the patient was found to have pneumonia as well as question of pleural effusion. CT scan of the chest was performed and showed a small to moderate pleural effusion on the right with question of partially loculated fluid. A bedside ultrasound was completed which revealed no significant pleural effusion but atelectasis. Patient reports that since admission yesterday he feels considerably better and has no further shortness of breath. Her last month he is complained about pain on the right side. Ultrasound was done which showed sludge in the gallbladder. There is evidence of a calcified gallstone on the CT scan representing cholelithiasis. Patient denies any nausea, vomiting, fever, sweats, rigors, chills, diarrhea. 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 He has no significant tobacco abuse history. He did smoke for a short period when he was in the [place] for only about 1 year. He denies any other significant risk factors. Allergies Allergy/AdvReac Type Severity Reaction Status Date / Time morphine Allergy Severe PROJECTILE Verified 06/26/18 19:50 VOMITING bee venom protein (honey bee) Allergy Intermediate EXCESSIVE Verified 06/26/18 19:50 SWELLING AT SITE sulfamethoxazole Allergy Intermediate TONGUE Verified 06/26/18 19:50 SWELLS, WHITE BLISTERS IN MOUTH. trimethoprim Allergy Intermediate TONGUE Verified 06/26/18 19:50 SWELLS, WHITE BLISTERS IN MOUTH. adhesive Allergy Mild SKIN Verified 06/26/18 19:50 IRRITATION Bactrim Allergy Unknown . Unverified 07/23/15 11:07 Home Medications Home Medications Medication Instructions Recorded Confirmed Type amlodipine 5 mg PO DAILY 06/26/18 06/26/18 History cyclobenzaprine 10 mg PO HS PRN 06/26/18 06/26/18 History fentanyl 1 patch TRANSDERMAL Q OTHER DAY 06/26/18 06/26/18 History gabapentin 600 mg PO BID 06/26/18 06/26/18 History meloxicam 0 mg PO DAILY 06/26/18 06/26/18 History omeprazole 20 mg PO BID 06/26/18 06/26/18 History pseudoephedrine HCl [Sudafed] 30 mg PO DAILY PRN 06/26/18 06/26/18 History venlafaxine [Effexor XR] 0 mg PO BID 06/26/18 06/26/18 History Patient History Medical History Depression GERD (gastroesophageal reflux disease) Chronic back pain Hypertension No significant past medical history Surgical History No significant past surgical history Social History Communication Ability: Effective Beliefs That Will Affect Care: None marital status: Current Living Situation: Spouse Other Information That Helps Us Care for You: No Feels Safe at Home: Yes Safety Concerns: Feels Safe At This Time Smoking Status: Unknown if ever smoked Hx Alcohol Use: No Hx Substance Use: No Review of Systems A total of 12 systems was reviewed and is negative other than as listed above in the HPI Physical Exam Vital Signs (Past 24 Hours): Last Vital Signs Temp 37.3 C 06/28/18 15:25 Pulse 88 06/28/18 15:50 Resp 18 06/28/18 15:50 BP 124/76 06/28/18 15:25 Pulse Ox 84 L 06/28/18 15:50 Physical Exam: GENERAL : No acute distress EYES: No icterus, gaze conjugate NOSE: No evidence of epistaxis MOUTH: No lesions or candidiasis NECK: Supple LUNGS: CTA B/L, no wheezes, rales or rhonchi. Breath sounds are clear to the bases with normal diaphragmatic excursion HEART: Regular, rate controlled ABDOMEN: Soft, NT, ND, BS Present EXTREMITIES: No LE edema, pedal pulses intact NEURO: A&OX3 Results & Data Laboratory Results Abnormal lab results 06/28/18 06/28/18 06/28/18 Range/Units 05:22 05:22 05:22 WBC 14.26 H (4.8-10.8) K/uL RBC 3.90 L (4.7-6.1) M/uL Hgb 11.7 L (14.0-18.0) g/dL Hct 36.2 L (42-52) % Immature Gran # (Auto) 0.06 H (0.00-0.02) K/uL Neut # (Auto) 10.88 H (1.4-6.5) K/uL [place] # (Auto) 1.44 H (0.11-0.59) K/uL Sodium 134 L (136-145) mmol/L Glucose 123 H (70-99) mg/dl Hemoglobin A1c (4.5-5.6) % Calcium 7.7 L (8.5-10.1) mg/dl Albumin 2.2 L (3.4-5.0) gm/dl Globulin 4.8 H (2.5-4.0) gm/dl Albumin/Globulin Ratio 0.5 L (0.9-2) Prealbumin 4.6 L (20-40) mg/dl 06/28/18 Range/Units 05:22 WBC (4.8-10.8) K/uL RBC (4.7-6.1) M/uL Hgb (14.0-18.0) g/dL Hct (42-52) % Immature Gran # (Auto) (0.00-0.02) K/uL Neut # (Auto) (1.4-6.5) K/uL [place] # (Auto) (0.11-0.59) K/uL Sodium (136-145) mmol/L Glucose (70-99) mg/dl Hemoglobin A1c 6.1 H (4.5-5.6) % Calcium (8.5-10.1) mg/dl Albumin (3.4-5.0) gm/dl Globulin (2.5-4.0) gm/dl Albumin/Globulin Ratio (0.9-2) Prealbumin (20-40) mg/dl Diagnostic Findings CT SCAN OF THE CHEST WITHOUT IV CONTRAST CLINICAL HISTORY: Hypoxia. COMPARISON STUDY: Chest x-ray dated 06/26/2018. Chest CT dated 02/02/2010. Abdominal CT dated 06/26/2018. TECHNIQUE: CT scan of the thorax was performed from the thoracic inlet to the upper abdomen. Images are reviewed in the axial, sagittal, and coronal planes. IV contrast was not administered for this examination as per the referring clinician. A dose lowering technique was utilized adhering to the principles of ALARA. CT DOSE: 680.97 mGy.cm FINDINGS: Thyroid: Imaged portions of the thyroid gland are normal in size and attenuation. Thoracic aorta: The thoracic aorta is normal in caliber and demonstrates standard 3-vessel arch anatomy. Heart: The heart is mildly enlarged and without pericardial effusion. The coronary arteries are densely calcified. There is diminished attenuation of the cardiac blood pool as compared to the myocardium suggesting anemia. Lungs and pleural spaces: Evaluation of the lung parenchyma is modestly degraded by motion artifact. There is a small to moderate and at least partially loculated pleural effusion at the right lung base with associated consolidation and elevation of the right hemidiaphragm. Mediastinum: Enlarged subcarinal node measures 3.6 x 2.5 cm. Liza: Not well assessed without IV contrast. Axillae: There is no axillary lymphadenopathy. Upper abdomen: A calcified gallstone is noted. Partially visualized upper abdo gonzález viscera is within normal limits. Skeletal structures: The skeletal structures are osteopenic. Degenerative changes noted throughout the thoracic spine. Mild compression deformities are noted in the lower thoracic region. No lytic or blastic bony lesions are seen. There are healed right-sided rib fractures. IMPRESSION: 1. There is a small to moderate and at least partially loculated pleural effusion at the right lung base with associated consolidation. This could represent atelectasis and/or superimposed pneumonia. Clinical correlation will be required. 2. The left lung is clear. 3. Mild cardiac enlargement. 4. Cholelithiasis. 5. An enlarged subcarinal node is similar to previous. Dictated: 06/27/18 1354 Transcribed: 06/27/18 1359 XR chest 1V portable HISTORY: 67 years-old Male epig pain acute epigastric abdominal pain COMPARISON: CT chest 02/02/2010, chest radiograph 02/02/2010 TECHNIQUE: Portable AP view of the chest FINDINGS: Lungs are hypoinflated with bronchovascular crowding. Moderate right hemidiaphragmatic elevation. Cardiac silhouette is mildly enlarged. Mild bilateral interstitial coarsening without pneumothorax, pleural effusion or overt pulmonary edema. Subsegmental bibasilar opacities. Degenerative changes of the shoulders and spine. IMPRESSION: 1. Hypoinflation with bronchovascular crowding. 2. Mild cardiomegaly. 3. Moderate hemidiaphragmatic elevation with bibasilar opacities suggestive of atelectasis or pneumonitis. Electronically signed by: Henrique Stewart M.D. 06/26/2018 8:19 PM
[2018-06-28] MEDS: AMOXICILLIN/CLAVULANATE 875 MG TAB PO SCH (18:01)
[2018-06-28] MEDS ORDERED: BENZONATATE 100 MG CAPSULE PO PRN (18:22)
[2018-06-28] MEDS: PANTOprazole 40 MG TAB PO SCH (20:30)
[2018-06-28] MEDS: MELOXICAM 7.5 MG TAB PO SCH (20:30)
[2018-06-29] MEDS ORDERED: VANCOMYCIN TROUGH ONE (03:30)
[2018-06-29] MEDS: ACETAMINOPHEN 325 MG TAB PO PRN ×3 (05:42→19:47)
[2018-06-29 06:55] LABS: Basophils # (auto) 0.04 K/uL (0-0.2); Basophils % (auto) 0.3 %; Eosinophils # (auto) 0.48 K/uL (0-0.5); Eosinophils % (auto) 3.3 %; Hematocrit (blood only) 36.3 % (42-52); Hemoglobin 12.1 g/dL (14.0-18.0); Immature Granulocytes # (auto) 0.07 K/uL (0.00-0.02); Immature Granulocytes % (auto) 0.5 %; Lymphocytes # (auto) 1.42 K/uL (1.2-3.4); Lymphocytes % (auto) 9.6 %; Mean Corpuscular Hgb Conc 33.3 g/dL (32-36); Mean Corpuscular Volume 92.1 fL (80-100); Mean Platelet Volume 9.2 fL (7.4-10.4); Monocytes % (auto) 9.5 %; Neutrophils # (auto) 11.34 K/uL (1.4-6.5); Neutrophils % (auto) 76.8 %; Platelet Count 359 K/uL (130-400); RDW Coefficient of Variation 13.3 % (11.5-14.5); RDW Standard Deviation 44.7 fL (36.4-46.3); Red Blood Count 3.94 M/uL (4.7-6.1); White Blood Count 14.75 K/uL (4.8-10.8)
[2018-06-29 07:14] LABS: Albumin Level 2.3 gm/dl (3.4-5.0); BUN Creatinine Ratio 11.2 (10-20); Calcium 8.3 mg/dl (8.5-10.1); Creatinine Clr Calc Pharmacy 94.6 ml/min; Est GFR (African American) 103.7; Est GFR (Non-African American) 89.5; Potassium 4.1 mmol/L (3.5-5.1)
[2018-06-29 07:17] LABS: Albumin Globulin Ratio 0.5 (0.9-2); Bilirubin,Total 0.8 mg/dl (0.2-1); Globulin 4.9 gm/dl (2.5-4.0); Total Protein 7.2 gm/dl (6.4-8.2)
[2018-06-29] MEDS: AMOXICILLIN/CLAVULANATE 875 MG TAB PO SCH ×2 (08:11→17:01)
[2018-06-29] MEDS: VENLAFAXINE HCL XR 37.5 MG CAPXR PO SCH ×2 (08:13→19:43)
[2018-06-29] MEDS: GABAPENTIN 600 MG TAB PO SCH ×2 (08:14→19:42)
[2018-06-29] MEDS: ENOXAPARIN INJ 40 MG/0.4 ML SYR SQ SCH (08:14)
[2018-06-29] MEDS: SENNA 8.6 MG TAB PO SCH (08:14)
[2018-06-29] MEDS: CHECK FENTANYL PATCH PLACEMENT SCH ×3 (08:15→23:19)
[2018-06-29] MEDS: ONDANSETRON INJ 2 MG/ML 2 ML VIAL IV PRN ×2 (09:41→19:38)
--- NOTE | 2018-06-29 10:38 | XRay Report ---
XR chest 2V routine HISTORY: Fever, pneumonia COMPARISON: Chest 06/26/2018. FINDINGS: Chronic elevation of the right hemidiaphragm remains unchanged. Bibasilar linear densities favor subsegmental atelectasis. No pneumothorax. No pleural effusions. The heart is stable in size. N o evidence for pulmonary edema. No new focal lung consolidations. Chronic mild anterior wedging withi n the lower thoracic spine vertebral bodies. IMPRESSION: No significant change compared to the prior study. No acute process. Bibasilar densities favor subseg mental atelectasis or scarring. Electronically signed by: Dandy Chawla M.D. 06/29/2018 10:37 AM
--- NOTE | 2018-06-29 10:45 | Family Medicine Progress Note ---
Date of Service June 29, 2018 Assessment & Plan (1) Sepsis: Mr. Alvarez is a 67-year-old male with a history of hypertension, chronic back pain, GERD, depression who presents to the emergency department due to a 1 month history of gradually worsening right sided back pain, cough and weakness. ED course: 1 L normal saline bolus, 15 mg IV ketorolac, duo nebs x1, 1 g magnesium sulfate, 4 mg IV Zofran, 1 g IV acetaminophen, 4.5 g IV Zosyn -Admitted to med/surg -On admission met criteria for sepsis with tachycardia, elevated white cell count, and pulmonary source of infection -On admission noted to have desaturated to 85% on room air, continue oxygen as needed. -In ED (06/26) CT abdomen and pelvis showed a right sided pneumonia w/a small, mildly loculated pleural effusion -Treatment started with IV Zosyn and vancomycin. Vancomycin was discontinued once MRSA swab was negative today 06/27. -CT of Chest ordered today (06/27): Radiology report reviewed. Small to moderate partially loculated pleural effusion at the right lung base with associated consolidation. Representing atelectasis and/vs. superimposed pneumonia. Left lung was clear. Mild cardiac enlargement. Cholelitiasis. Enlarged subcarinal node similar to previous. -Blood cultures drawn x2, no growth to date -650 mg p.o. acetaminophen ordered every 4 hours as needed for pain or fever -4 mg IV Zofran ordered as needed for nausea -xopenex nebs ordered prn SOB/wheeze Suspected source Pulmonary - pneumonia. Continue with Zosyn abx. CODE STATUS: Full Disposition: Admit to med/surg DVT prophylaxis: Lovenox 40 mg SQ daily F/E/N: Regular diet ordered. Hyponatremia with sodium of 131, and low chloride at 95. Patient also has a low magnesium of 1.7 (repleted in ED). Likely related to poor oral intake, recheck BMP tomorrow. Ringer's lactate ordered at 125 mLs/hour x2 bags (2) Leukocytosis: Suspect secondary to pulmonary infectious process. In ED (06/26) 16.41 06/27 = 16.23 / = 14.26 / = 14.25 06/30 = 14.75 Will continue to monitor with CBC. (3) Fever: -650 mg p.o. acetaminophen ordered every 4 hours as needed for pain or fever -Did have elevated temp on ED presentation of 37.9 C. -Then had no temperatures equal to or greater than 38.0 C, until 11pm on 06/28 where is had a fever of 39.2 C. This resolved with PO Tylenol. All fevers do resolve with PO tylenol, but since PRN are seeing Fevers in evening as has normal vitals in morning after PO treatment for late night fevers, was not getting Tylenol during day. This morning afebrile. Was complaining of nausea this morning and night sweats overnight from fever. States nausea is chronic. Treating source of fever and inflammation as pulmonary from Pleural Effusion. It is the only finding after workup thus far. No source of infection in urine, repeat this morning was normal, without even a sterile pyuria that might support prostatitis. Doubt neuro etiology. No abscess seen on Abd/pelvis/Chest CT. Complete skin exam did not show any signs for cellulitis. Will continue current antibiotic treatment. A repeat CXR on 06/29 AM after febrile event overnight showed no acute process change from previous. Procal was normal this AM. (4) Pneumonia: -In ED (06/26) CT abdomen and pelvis showed a right sided pneumonia w/a small, mildly loculated pleural effusion -Treatment started with IV Zosyn and vancomycin. Vancomycin was discontinued once MRSA swab was negative today 06/27. Continue with IV Zosyn. -CT of Chest ordered today (06/27): Radiology report reviewed. Small to moderate partially loculated pleural effusion at the right lung base with associated consolidation. Representing atelectasis and/vs. superimposed pneumonia. -Procalcitonin was negative. Considered perhaps fungal pneumonia like coccidioidomycosis ([place] fever) but doubt because of no travel out [place] recently. No history of spelunking or venturing inside caves for potential histoplasmosis. - Also WBC decreased on Zosyn, suspect bacterial cause, will continue to monitor and if not improving will consider fungal workup. - Doubt Legionella (5) Hypoxia: -On admission noted to have desaturated to 85% on room air, continue oxygen as needed. 91% on 2L NC this morning (6) Pleural effusion, right: U/S provided courtesy of Kody Matute PA-C today. Noted that Pleural effusion was small and amount not large enough to warrant thoracentesis. He noted loculations. Recommended Acapella incentive spirometry to provide vibratory effect to break up loculations. - Most likely etiology pneumonia - consideration for transudative process secondary to hypoalbuminemia if no improvement on outpatient follow up (7) Right upper quadrant abdominal pain: right sided pleural effusion most likely but also has cholelithiasis, gallbladder sludge, hepatic steatosis as mentioned in Gall Bladder U/S performed in ED. IMPRESSION: 1. Gallbladder sludge with possible cholelithiasis. No sonographic evidence of acute cholecystitis. 2. No biliary ductal dilation. 3. Suggested hepatic steatosis. (8) Lymphadenopathy: -CT abdomen/pelvis shows enlarged mediastinal lymph nodes with prominent lymph nodes of the abdomen and pelvis, see CT report for full details -Outpatient follow-up recommended -CT Chest showed enlarged subcarinal lymph node - LAD concerning for underlying leukemia/lymphoma - Pheripheral smear path ordered - resulted showing consistent with acute infection and no signs of CML, leukemia, lymphoma, Multiple myeloma (stacking of RBCs) (9) Hypertension: -Hold home amlodipine given hypotensive in the emergency department -This morning also hypotensive 91/45, but normal this afternoon 124/76 (15:25) -Will continue to hold considering septic diagnosis (10) Chronic back pain: -Continue home regimen, including cyclobenzaprine, fentanyl, gabapentin, meloxicam -With regards to new right-sided abdominal and back pain, this is likely related to the pleural effusion and pneumonia causing diaphragmatic irritation. The patient's CT abdomen pelvis did show right-sided hydronephrosis, which may have represented a recently passed stone or infection. The patient, however, denies any urinary symptoms, and UA is clean, making an infection unlikely. -He also does have gallbladder sludge noted on his CT abdomen pelvis, however there is no evidence of cholecystitis. Cholelithiasis was noted on Chest CT. (11) GERD (gastroesophageal reflux disease): -Change from omeprazole to pantoprazole (12) Depression: -Continue home venlafaxine Supervising Physician Co-Signing Physician Notes I saw and examined the patient independently. I discussed the plan of care with the resident with the following summary/exceptions: 67 yo M w/ hx of HTN, GERD, and depression who presents with right-sided flank pain and RLL pneumonia. Today, he isn't feeling quite as well. Overnight, had a fever to 39.2 and additional hypoxemia. This morning, he is nauseated which he reports is a long- standing issue for him. 1) RLL pneumonia - CT chest on 06/27 showed a right-sided pleural effusion with RLL consolidation. Stopped vanc on 06/27 given negative MRSA swab. Switched from Zosyn to Augmentin on 06/28. Repeat CXR on 06/29 did not show worsening consolidation. Will trend for 1 more day to ensure no further fevers. Continue Augmentin. 2) HTN - Per report, he had low BP in the ED, so holding HTN meds at present. Will restart as needed. 3) Back pain - Continue pain meds as able. Subjective Mr. Alvarez stated he started to fee ill last night. He states only acute complaints is nausea without vomiting and felt feverish last night, waking up with wet bed sheets from sweat. He denies chest pain, shortness of breath, new complaints of pain. He states that he gets nauseated at home chronically and that it usually resolves in 30 minutes, but this episode is persistent. Physical Exam Vital Signs (Past 24 Hours): Last Vital Signs Temp 36.7 C 06/29/18 07:11 Pulse 76 06/29/18 07:11 Resp 20 06/29/18 07:11 BP 132/83 06/29/18 07:11 Pulse Ox 92 06/29/18 07:11 Constitutional: WD/WN, vitals as above + disheveled, cooperative and comfortable; no altered mental status appears ill Eyes: + anicteric sclerae and EOM intact bilaterally Neck: normal visual inspection and trachea midline Respiratory: normal respiratory effort and able to speak in complete sentences; no respiratory distress and does not use accessory muscles Auscultation: no rales and no wheezes lungs sound relatively clear Cardiovascular: Rate/Rhythm: regular rate and regular rhythm Extremities: no pedal edema Gastrointestinal (Abdomen): Inspection/Auscultation: abdomen normal to inspection and normal bowel sounds; abdomen not distended Percussion/Palpation: abdomen soft; abdomen nontender and no guarding Musculoskeletal: Head/Neck/Chest: normocephalic and head atraumatic Skin: no rashes, warm and dry Neurologic: moves all extremities Psychiatric: A+Ox3, euthymic affect Results & Data Laboratory Results Laboratory Results - last 24 hr 06/29/18 06/29/18 06/29/18 06:39 06:39 06:39 WBC 14.75 H RBC 3.94 L Hgb 12.1 L Hct 36.3 L MCV 92.1 MCH 30.7 MCHC 33.3 RDW Std Deviation 44.7 RDW Coeff of Netta 13.3 Plt Count 359 MPV 9.2 Immature Gran % (Auto) 0.5 Neut % (Auto) 76.8 Lymph % (Auto) 9.6 [place] % (Auto) 9.5 Eos % (Auto) 3.3 Baso % (Auto) 0.3 Immature Gran # (Auto) 0.07 H Neut # (Auto) 11.34 H Lymph # (Auto) 1.42 [place] # (Auto) 1.40 H Eos # (Auto) 0.48 Baso # (Auto) 0.04 Sodium 136 Potassium 4.1 Chloride 99 Carbon Dioxide 34 H Anion Gap 3.0 BUN 10 Creatinine 0.88 Est Cr Clr Drug Dosing 94.6 Est GFR ( Amer) 103.7 Est GFR (Non-Af Amer) 89.5 BUN/Creatinine Ratio 11.2 Glucose 105 H Calcium 8.3 L Total Bilirubin 0.8 AST 22 ALT 29 Alkaline Phosphatase 74 Total Protein 7.2 Albumin 2.3 L Globulin 4.9 H Albumin/Globulin Ratio 0.5 L Procalcitonin 0.25 Medications Administered Acetaminophen (Tylenol) 650 mg PO Q4H PRN PRN Reason: pain/fever Stop: 07/27/18 01:15 Last Admin: 06/29/18 05:42 Dose: 650 mg Documented by: [id number] Admin: 06/28/18 23:47 Dose: 650 mg Documented by: [id number] Admin: 06/28/18 07:22 Dose: 650 mg Documented by: [id number] Admin: 06/28/18 01:53 Dose: 650 mg Documented by: [id number] Admin: 06/27/18 19:38 Dose: 650 mg Documented by: [id number] Admin: 06/27/18 05:42 Dose: 650 mg Documented by: [id number] Amoxicillin/Clavulanate Potassium (Augmentin 875mg) 1 tab PO BIDM [facility]; Protocol Stop: 07/03/18 08:01 Last Admin: 06/29/18 08:11 Dose: 1 tab Documented by: [id number] Admin: 06/28/18 18:01 Dose: 1 tab Documented by: [id number] Cyclobenzaprine HCl (Flexeril) 10 mg PO HS PRN PRN Reason: Muscle Spasm Stop: 07/27/18 01:15 Last Admin: 06/27/18 21:56 Dose: 10 mg Documented by: [id number] Admin: 06/27/18 02:51 Dose: 10 mg Documented by: [id number] Enoxaparin Sodium (Lovenox) 40 mg SQ Q24H [facility] Stop: 07/27/18 08:59 Last Admin: 06/29/18 08:14 Dose: 40 mg Documented by: [id number] Admin: 06/28/18 07:23 Dose: 40 mg Documented by: [id number] Admin: 06/27/18 08:30 Dose: 40 mg Documented by: [id number] Fentanyl (Duragesic) 100 mcg TD Q2D@0900 [facility] Stop: 07/12/18 08:59 Last Admin: 06/28/18 09:06 Dose: 100 mcg Documented by: [id number] Gabapentin (Neurontin) 600 mg PO BID [facility] Stop: 07/27/18 01:59 Last Admin: 06/29/18 08:14 Dose: 600 mg Documented by: [id number] Admin: 06/28/18 20:30 Dose: 600 mg Documented by: [id number] Admin: 06/28/18 07:23 Dose: 600 mg Documented by: [id number] Admin: 06/27/18 20:54 Dose: 600 mg Documented by: [id number] Admin: 06/27/18 08:31 Dose: 600 mg Documented by: [id number] Admin: 06/27/18 02:51 Dose: 600 mg Documented by: [id number] Ioversol (Optiray 320 100ml) 96 ml IV ONCE PRN PRN Reason: Interaction Checking Stop: 06/30/18 22:10 Last Admin: 06/26/18 22:12 Dose: 96 ml Documented by: [id number] Levalbuterol HCl (Xopenex 0.63 Mg/3 Ml Neb) 0.63 mg NEB Q6R PRN PRN Reason: SOB or wheeze Stop: 07/27/18 01:59 Last Admin: 06/28/18 15:50 Dose: 0.63 mg Documented by: [id number] Admin: 06/28/18 01:43 Dose: 0.63 mg Documented by: [id number] Admin: 06/27/18 20:00 Dose: 0.63 mg Documented by: [id number] Meloxicam (Mobic) 7.5 mg PO [facility] Stop: 07/27/18 02:59 Last Admin: 06/28/18 20:30 Dose: 7.5 mg Documented by: [id number] Admin: 06/27/18 20:54 Dose: 7.5 mg Documented by: [id number] Admin: 06/27/18 02:50 Dose: 7.5 mg Documented by: [id number] Miscellaneous (Fentanyl Patch Check Placement) 1 ea N/A QS [facility] Stop: 07/27/18 07:59 Last Admin: 06/29/18 08:15 Dose: 1 ea Documented by: [id number] Admin: 06/28/18 23:47 Dose: 1 ea Documented by: [id number] Admin: 06/28/18 18:01 Dose: 1 ea Documented by: [id number] Admin: 06/28/18 07:21 Dose: 1 ea Documented by: [id number] Admin: 06/28/18 00:40 Dose: 1 ea Documented by: [id number] Admin: 06/27/18 17:54 Dose: 1 ea Documented by: [id number] Admin: 06/27/18 08:30 Dose: 1 ea Documented by: [id number] Miscellaneous (Fentanyl Patch Remove & Waste) 1 ea N/A Q2D@0859 [facility] Stop: 07/28/18 08:58 Last Admin: 06/28/18 07:22 Dose: 1 ea Documented by: [id number] Cosigned by: [id number] Ondansetron HCl (Zofran) 4 mg IV Q4H PRN PRN Reason: Nausea Stop: 07/29/18 09:18 Last Admin: 06/29/18 09:41 Dose: 4 mg Documented by: [id number] Pantoprazole Sodium (Protonix) 40 mg PO [facility] Stop: 07/27/18 02:59 Last Admin: 06/28/18 20:30 Dose: 40 mg Documented by: [id number] Admin: 06/27/18 20:54 Dose: 40 mg Documented by: [id number] Admin: 06/27/18 02:51 Dose: 40 mg Documented by: [id number] Sennosides (Senokot) 8.6 mg PO QAM [facility] Stop: 07/27/18 01:59 Last Admin: 06/29/18 08:14 Dose: 8.6 mg Documented by: [id number] Admin: 06/28/18 07:23 Dose: 8.6 mg Documented by: [id number] Admin: 06/27/18 08:31 Dose: 8.6 mg Documented by: [id number] Admin: 06/27/18 02:51 Dose: 8.6 mg Documented by: [id number] Venlafaxine HCl (Effexor Extended Release) 37.5 mg PO BID [facility] Stop: 07/27/18 01:59 Last Admin: 06/29/18 08:13 Dose: 37.5 mg Documented by: [id number] Admin: 06/28/18 20:30 Dose: 37.5 mg Documented by: [id number] Admin: 06/28/18 07:23 Dose: 37.5 mg Documented by: [id number] Admin: 06/27/18 20:54 Dose: 37.5 mg Documented by: [id number] Admin: 06/27/18 08:31 Dose: 37.5 mg Documented by: [id number] Admin: 06/27/18 02:51 Dose: 37.5 mg Documented by: [id number] (1) Fever Fever type: unspecified Qualified Code(s): R50.9 - Fever, unspecified (2) Leukocytosis Leukocytosis type: unspecified Qualified Code(s): D72.829 - Elevated white blood cell count, unspecified
[2018-06-29 11:00] LABS: Appearance Urine Clear (Clear); Bilirubin Urine Negative (Negative); Blood Urine Negative (Negative); Color Urine Yellow; Glucose Urine UA Negative (Negative); Ketones Urine Negative (Negative); Leukocyte Esterase Urine Negative (Negative); Nitrite Urine Negative (Negative); Protein Urine Negative (Negative); Specific Gravity Urine 1.006 (1.000-1.030); Urobilinogen Urine Negative (Negative)
[2018-06-29] MEDS: PANTOprazole 40 MG TAB PO SCH (19:42)
[2018-06-29] MEDS: MELOXICAM 7.5 MG TAB PO SCH (19:43)
[2018-06-29] MEDS ORDERED: PROCHLORPERAZINE 5 MG in SYRINGE 4 ML IV ONE (22:30)
[2018-06-30] MEDS: ONDANSETRON INJ 2 MG/ML 2 ML VIAL IV PRN ×3 (03:56→12:31)
[2018-06-30] MEDS: ACETAMINOPHEN 325 MG TAB PO PRN ×3 (04:01→22:33)
[2018-06-30 07:08] LABS: Basophils # (auto) 0.03 K/uL (0-0.2); Basophils % (auto) 0.2 %; Eosinophils # (auto) 0.58 K/uL (0-0.5); Eosinophils % (auto) 4.2 %; Hematocrit (blood only) 37.7 % (42-52); Hemoglobin 12.1 g/dL (14.0-18.0); Immature Granulocytes # (auto) 0.07 K/uL (0.00-0.02); Immature Granulocytes % (auto) 0.5 %; Lymphocytes # (auto) 1.61 K/uL (1.2-3.4); Lymphocytes % (auto) 11.6 %; Mean Corpuscular Hgb Conc 32.1 g/dL (32-36); Mean Corpuscular Volume 92.2 fL (80-100); Mean Platelet Volume 9.4 fL (7.4-10.4); Monocytes # (auto) 1.16 K/uL (0.11-0.59); Monocytes % (auto) 8.4 %; Neutrophils # (auto) 10.44 K/uL (1.4-6.5); Neutrophils % (auto) 75.1 %; Platelet Count 397 K/uL (130-400); RDW Coefficient of Variation 13.5 % (11.5-14.5); RDW Standard Deviation 45.5 fL (36.4-46.3); Red Blood Count 4.09 M/uL (4.7-6.1); White Blood Count 13.89 K/uL (4.8-10.8)
[2018-06-30 07:38] LABS: Albumin Level 2.4 gm/dl (3.4-5.0); BUN Creatinine Ratio 13.2 (10-20); Calcium 8.6 mg/dl (8.5-10.1); Creatinine Clr Calc Pharmacy 99.1 ml/min; Est GFR (African American) 105.7; Est GFR (Non-African American) 91.2; Potassium 4.1 mmol/L (3.5-5.1)
[2018-06-30 07:50] LABS: Albumin Globulin Ratio 0.5 (0.9-2); Bilirubin,Total 0.5 mg/dl (0.2-1); Globulin 5.2 gm/dl (2.5-4.0); Total Protein 7.6 gm/dl (6.4-8.2)
[2018-06-30] MEDS: fentaNYL 100 MCG/HR TDSY TD SCH (09:13)
[2018-06-30] MEDS: AMOXICILLIN/CLAVULANATE 875 MG TAB PO SCH ×2 (09:14→16:34)
[2018-06-30] MEDS: SENNA 8.6 MG TAB PO SCH (09:14)
[2018-06-30] MEDS: ENOXAPARIN INJ 40 MG/0.4 ML SYR SQ SCH (09:15)
[2018-06-30] MEDS: GABAPENTIN 600 MG TAB PO SCH ×2 (09:15→19:52)
[2018-06-30] MEDS: CHECK FENTANYL PATCH PLACEMENT SCH ×2 (09:16→15:09)
[2018-06-30] MEDS: VENLAFAXINE HCL XR 37.5 MG CAPXR PO SCH ×2 (09:16→19:53)
[2018-06-30] MEDS: LEVALBUTEROL HCL 0.63 MG/3 ML NEB NEB PRN (15:25)
[2018-06-30] MEDS: PROCHLORPERAZINE MALEATE 10 MG TAB PO PRN (16:33)
[2018-06-30] MEDS ORDERED: levoFLOXacin 500 MG TAB PO STA (16:48)
[2018-06-30] MEDS ORDERED: LEVOFLOXACIN/D5W 500 MG/100 ML BAG IV ONE (17:00)
--- NOTE | 2018-06-30 17:07 | Family Medicine Progress Note ---
Date of Service June 30, 2018 Assessment & Plan (1) Sepsis: Mr. Alvarez is a 67-year-old male with a history of hypertension, chronic back pain, GERD, depression who presents to the emergency department due to a 1 month history of gradually worsening right sided back pain, cough and weakness. ED course: 1 L normal saline bolus, 15 mg IV ketorolac, duo nebs x1, 1 g magnesium sulfate, 4 mg IV Zofran, 1 g IV acetaminophen, 4.5 g IV Zosyn -Admitted to med/surg -On admission met criteria for sepsis with tachycardia, elevated white cell count, and pulmonary source of infection -On admission noted to have desaturated to 85% on room air, continue oxygen as needed. -In ED (06/26) CT abdomen and pelvis showed a right sided pneumonia w/a small, mildly loculated pleural effusion -Treatment started with IV Zosyn and vancomycin. Vancomycin was discontinued once MRSA swab was negative 06/27. -Course of care with IV Zosyn 3.375gm total of 5 doses; then switched to Augmentin 875mg-125mg x 5 doses; Levofloxacin 500mg IV once. - On 06/30/18 cancelled Augmentin and ordered Levofloxacin 500mg IV x 1 dose There is no antibiotic coverage ordered for 07/01/2018. If noted improvement on morning of 07/01/2018. Consider continuing Levaquin 500mg PO for continued and ultimately outpatient antibiotic coverage. On sign out to new covering resident team, will defer to their plan of action. Please note that consideration was given that illness may be related to a picture of choleangitis. Mr. Alvarez is an elderly gentleman and fits a potential atypical picture. Also, he has not improved with Augmentin PO as expected and has continued to spike fevers. On 06/30, his CMP did show an elevated Alk Phos to 168, elevated AST of 71 and his ALT was elevated to 77 (although normal elevated from 20 and is only within normal limit by one point). He does have gallbladder sludge and also septic diagnosis on arrival. Will need to follow up on CMP and CBC in the morning to see response to antibiotic treatment today. -CT of Chest ordered (06/27): Radiology report reviewed. Small to moderate partially loculated pleural effusion at the right lung base with associated consolidation. Representing atelectasis and/vs. superimposed pneumonia. Left lung was clear. Mild cardiac enlargement. Cholelitiasis. Enlarged subcarinal node similar to previous. -Blood cultures drawn x2, no growth to date -650 mg p.o. acetaminophen ordered every 4 hours as needed for pain or fever -4 mg IV Zofran ordered as needed for nausea -xopenex nebs ordered prn SOB/wheeze Suspected source Pulmonary - pneumonia vs biliary tract. CODE STATUS: Full Disposition: Admit to med/surg DVT prophylaxis: Lovenox 40 mg SQ daily (2) Leukocytosis: Suspect secondary to pulmonary infectious process. In ED (06/26) 16.41 06/27 = 16.23 06/28 = 14.26 06/29 = 14.75 06/30 = 13.89 . Will continue to monitor with CBC. (3) Fever: -650 mg p.o. acetaminophen ordered every 4 hours as needed for pain or fever -Did have elevated temp on ED presentation of 37.9 C. -Then had no temperatures equal to or greater than 38.0 C, until 11pm on 06/28 where is had a fever of 39.2 C. This resolved with PO Tylenol. All fevers do resolve with PO tylenol, but since PRN are seeing Fevers in evening as has normal vitals in morning after PO treatment for late night fevers, was not getting Tylenol during day. He has continued to spike fevers here on Sunday (06/30). Treating source of fever and inflammation as pulmonary from Pleural Effusion. It is the only finding after workup thus far. No source of infection in urine, repeat this morning was normal, without even a sterile pyuria that might support prostatitis. Doubt neuro etiology. No abscess seen on Abd/pelvis/Chest CT. Complete skin exam did not show any signs for cellulitis. Will continue current antibiotic treatment. A repeat CXR on 06/29 AM after febrile event overnight showed no acute process change from previous. Procal was normal this AM. Again please note Please note that consideration was given that illness may be related to a picture of choleangitis. Mr. Alvarez is an elderly gentleman and fits a potential atypical picture. Also, he has not improved with Augmentin PO as expected and has continued to spike fevers. On 06/30, his CMP did show an elevated Alk Phos to 168, elevated AST of 71 and his ALT was elevated to 77 (although normal elevated from 20 and is only within normal limit by one point). He does have gallbladder sludge and also septic diagnosis on arrival. Will need to follow up on CMP and CBC in the morning to see response to antibiotic treatment today. (4) Pneumonia: -In ED (06/26) CT abdomen and pelvis showed a right sided pneumonia w/a small, mildly loculated pleural effusion -Treatment started with IV Zosyn and vancomycin. Vancomycin was discontinued once MRSA swab was negative today 06/27. Continue with IV Zosyn. -CT of Chest ordered today (06/27): Radiology report reviewed. Small to moderate partially loculated pleural effusion at the right lung base with associated consolidation. Representing atelectasis and/vs. superimposed pneumonia. -Procalcitonin was negative. Considered perhaps fungal pneumonia like coccidioidomycosis ([place] fever) but doubt because of no travel out [place] recently. No history of spelunking or venturing inside caves for potential histoplasmosis. - Also WBC decreased on Zosyn, suspect bacterial cause, will continue to monitor and if not improving will consider fungal workup. - Doubt Legionella Has had required NC with supplemental oxygen and has Xopenex nebs. Does not have significant tobacco abuse from smoking history. (5) Hypoxia: -On admission noted to have desaturated to 85% on room air, continue oxygen as needed. 94% on 2L NC this morning (6) Pleural effusion, right: U/S provided courtesy of Kody Matute PA-C today. Noted that Pleural effusion was small and amount not large enough to warrant thoracentesis. He noted loculations. Recommended Acapella incentive spirometry to provide vibratory effect to break up loculations. - Most likely etiology pneumonia - consideration for transudative process secondary to hypoalbuminemia if no improvement on outpatient follow up. Consider asking if Pulmonology would be willing to re-U/S on Sunday. (7) Right upper quadrant abdominal pain: right sided pleural effusion most likely but also has cholelithiasis, gallbladder sludge, hepatic steatosis as mentioned in Gall Bladder U/S performed in ED. IMPRESSION: 1. Gallbladder sludge with possible cholelithiasis. No sonographic evidence of acute cholecystitis. 2. No biliary ductal dilation. 3. Suggested hepatic steatosis. Appears cholestasis process from dysmotility of GB from biliary sludge - HIDA scan ordered for Sunday Again please be aware of possible atypical Choleangitis. Has had post-prandial nausea. Compazine added 10mg PRN q6 PO for nausea. (8) Lymphadenopathy: -CT abdomen/pelvis shows enlarged mediastinal lymph nodes with prominent lymph nodes of the abdomen and pelvis, see CT report for full details -Outpatient follow-up recommended -CT Chest showed enlarged subcarinal lymph node - LAD concerning for underlying leukemia/lymphoma - Pheripheral smear path ordered - resulted showing consistent with acute infection and no signs of CML, leukemia, lymphoma, Multiple myeloma (stacking of RBCs) (9) Hypertension: -Hold home amlodipine given hypotensive in the emergency department -Had a hypotensive recording 91/45 (06/28), appears to have been doing well without. -Will continue to hold considering septic diagnosis. (10) Chronic back pain: -Continue home regimen, including cyclobenzaprine, fentanyl, gabapentin, meloxicam -With regards to new right-sided abdominal and back pain, this is likely related to the pleural effusion and pneumonia causing diaphragmatic irritation. The patient's CT abdomen pelvis did show right-sided hydronephrosis, which may have represented a recently passed stone or infection. The patient, however, denies any urinary symptoms, and UA is clean, making an infection unlikely. -He also does have gallbladder sludge noted on his CT abdomen pelvis, however there is no evidence of cholecystitis. Cholelithiasis was noted on Chest CT. (11) GERD (gastroesophageal reflux disease): -Change from omeprazole to pantoprazole (12) Depression: -Continue home venlafaxine Supervising Physician Co-Signing Physician Notes I saw and examined the patient independently. I discussed the plan of care with the resident with the following summary/exceptions: 67 yo M w/ hx of HTN, GERD, and depression who presents with right-sided flank pain and RLL pneumonia. Today, he isn't feeling quite as well. Still having nausea which he reports is a long-standing issue for him, but worse in the last few days. No vomiting. 1) RLL pneumonia - CT chest on 06/27 showed a right-sided pleural effusion with RLL consolidation. Stopped vanc on 06/27 given negative MRSA swab. Switched from Zosyn to Augmentin on 06/28. Repeat CXR on 06/29 did not show worsening consolidation. Given his nausea, will switch to IV levofloxacin and consider discharge on levofloxacin. 2) Nausea - Persistent for months, but worse in the last few days. No outpatient work-up. Treated with Zofran which helped a little. Will stop Augmentin in favor of IV abx. Will get HIDA scan in the morning for gallbladder pathology. 3) HTN - Per report, he had low BP in the ED, so holding HTN meds at present. Will restart as needed. 4) Back pain - Continue pain meds as able. Subjective Mr. Alvarez states he still feels lousy. He doesn't endorse improvement and st ates he feels as unwell as yesterday. Upon questioning, he does endorse that symptoms of nausea are post-prandial. He has not had any vomiting or diarrhea. He does not note any RUQ pain post-prandial. But he endorses right thoracic back pain at the area of dermatome of T6. He states he will be mindful if pain worsens post-prandial or not. Physical Exam Vital Signs (Past 24 Hours): Last Vital Signs Temp 39.2 C H 06/30/18 15:15 Pulse 97 H 06/30/18 15:25 Resp 16 06/30/18 15:25 BP 136/83 06/30/18 15:15 Pulse Ox 93 06/30/18 15:25 Constitutional: WD/WN, vitals as above cooperative and comfortable; no altered mental status Eyes: + anicteric sclerae and EOM intact bilaterally Neck: normal visual inspection and trachea midline Respiratory: normal respiratory effort and able to speak in complete sentences; no respiratory distress and does not use accessory muscles Auscultation: no rales and no wheezes Cardiovascular: Rate/Rhythm: regular rate and regular rhythm Extremities: no pedal edema Gastrointestinal (Abdomen): Inspection/Auscultation: abdomen normal to inspection and normal bowel sounds; abdomen not distended Percussion/Palpation: abdomen soft; abdomen nontender and no guarding Musculoskeletal: Head/Neck/Chest: normocephalic and head atraumatic Skin: no rashes, warm and dry Neurologic: moves all extremities Psychiatric: A+Ox3, euthymic affect Results & Data Laboratory Results Laboratory Results - last 24 hr 06/30/18 06/30/18 06/30/18 06:47 06:47 06:47 WBC 13.89 H RBC 4.09 L Hgb 12.1 L Hct 37.7 L MCV 92.2 MCH 29.6 MCHC 32.1 RDW Std Deviation 45.5 RDW Coeff of Netta 13.5 Plt Count 397 MPV 9.4 Immature Gran % (Auto) 0.5 Neut % (Auto) 75.1 Lymph % (Auto) 11.6 [place] % (Auto) 8.4 Eos % (Auto) 4.2 Baso % (Auto) 0.2 Immature Gran # (Auto) 0.07 H Neut # (Auto) 10.44 H Lymph # (Auto) 1.61 [place]undy # (Auto) 1.16 H Eos # (Auto) 0.58 H Baso # (Auto) 0.03 Sodium 134 L Potassium 4.1 Chloride 97 L Carbon Dioxide 35 H Anion Gap 2.0 L BUN 11 Creatinine 0.84 Est Cr Clr Drug Dosing 99.1 Est GFR ( Amer) 105.7 Est GFR (Non-Af Amer) 91.2 BUN/Creatinine Ratio 13.2 Glucose 98 Calcium 8.6 Total Bilirubin 0.5 AST 71 H ALT 77 Alkaline Phosphatase 168 H D Total Protein 7.6 Albumin 2.4 L Globulin 5.2 H Albumin/Globulin Ratio 0.5 L Amylase 34 Medications Administered Acetaminophen (Tylenol) 650 mg PO Q4H PRN PRN Reason: pain/fever Stop: 07/27/18 01:15 Last Admin: 06/30/18 15:08 Dose: 650 mg Documented by: [id number] Admin: 06/30/18 04:01 Dose: 650 mg Documented by: [id number] Admin: 06/29/18 19:47 Dose: 650 mg Documented by: [id number] Admin: 06/29/18 11:21 Dose: 650 mg Documented by: [id number] Admin: 06/29/18 05:42 Dose: 650 mg Documented by: [id number] Admin: 06/28/18 23:47 Dose: 650 mg Documented by: [id number] Admin: 06/28/18 07:22 Dose: 650 mg Documented by: [id number] Admin: 06/28/18 01:53 Dose: 650 mg Documented by: [id number] Admin: 06/27/18 19:38 Dose: 650 mg Documented by: [id number] Admin: 06/27/18 05:42 Dose: 650 mg Documented by: [id number] Cyclobenzaprine HCl (Flexeril) 10 mg PO HS PRN PRN Reason: Muscle Spasm Stop: 07/27/18 01:15 Last Admin: 06/27/18 21:56 Dose: 10 mg Documented by: [id number] Admin: 06/27/18 02:51 Dose: 10 mg Documented by: [id number] Enoxaparin Sodium (Lovenox) 40 mg SQ Q24H [facility] Stop: 07/27/18 08:59 Last Admin: 06/30/18 09:15 Dose: 40 mg Documented by: [id number] Admin: 06/29/18 08:14 Dose: 40 mg Documented by: [id number] Admin: 06/28/18 07:23 Dose: 40 mg Documented by: [id number] Admin: 06/27/18 08:30 Dose: 40 mg Documented by: [id number] Fentanyl (Duragesic) 100 mcg TD Q2D@0900 [facility] Stop: 07/12/18 08:59 Last Admin: 06/30/18 09:13 Dose: 100 mcg Documented by: [id number] Admin: 06/28/18 09:06 Dose: 100 mcg Documented by: [id number] Gabapentin (Neurontin) 600 mg PO BID [facility] Stop: 07/27/18 01:59 Last Admin: 06/30/18 09:15 Dose: 600 mg Documented by: [id number] Admin: 06/29/18 19:42 Dose: 600 mg Documented by: [id number] Admin: 06/29/18 08:14 Dose: 600 mg Documented by: [id number] Admin: 06/28/18 20:30 Dose: 600 mg Documented by: [id number] Admin: 06/28/18 07:23 Dose: 600 mg Documented by: [id number] Admin: 06/27/18 20:54 Dose: 600 mg Documented by: [id number] Admin: 06/27/18 08:31 Dose: 600 mg Documented by: [id number] Admin: 06/27/18 02:51 Dose: 600 mg Documented by: [id number] Ioversol (Optiray 320 100ml) 96 ml IV ONCE PRN PRN Reason: Interaction Checking Stop: 06/30/18 22:10 Last Admin: 06/26/18 22:12 Dose: 96 ml Documented by: [id number] Levalbuterol HCl (Xopenex 0.63 Mg/3 Ml Neb) 0.63 mg NEB Q6R PRN PRN Reason: SOB or wheeze Stop: 07/27/18 01:59 Last Admin: 06/30/18 15:25 Dose: 0.63 mg Documented by: [id number] Admin: 06/28/18 15:50 Dose: 0.63 mg Documented by: [id number] Admin: 06/28/18 01:43 Dose: 0.63 mg Documented by: [id number] Admin: 06/27/18 20:00 Dose: 0.63 mg Documented by: [id number] Meloxicam (Mobic) 7.5 mg PO HS [facility] Stop: 07/27/18 02:59 Last Admin: 06/29/18 19:43 Dose: 7.5 mg Documented by: [id number] Admin: 06/28/18 20:30 Dose: 7.5 mg Documented by: [id number] Admin: 06/27/18 20:54 Dose: 7.5 mg Documented by: [id number] Admin: 06/27/18 02:50 Dose: 7.5 mg Documented by: [id number] Miscellaneous (Fentanyl Patch Check Placement) 1 ea N/A QS [facility] Stop: 07/27/18 07:59 Last Admin: 06/30/18 15:09 Dose: 1 ea Documented by: [id number] Admin: 06/30/18 09:16 Dose: 1 ea Documented by: [id number] Admin: 06/29/18 23:19 Dose: 1 ea Documented by: [id number] Admin: 06/29/18 17:01 Dose: 1 ea Documented by: [id number] Admin: 06/29/18 08:15 Dose: 1 ea Documented by: [id number] Admin: 06/28/18 23:47 Dose: 1 ea Documented by: [id number] Admin: 06/28/18 18:01 Dose: 1 ea Documented by: [id number] Admin: 06/28/18 07:21 Dose: 1 ea Documented by: [id number] Admin: 06/28/18 00:40 Dose: 1 ea Documented by: [id number] Admin: 06/27/18 17:54 Dose: 1 ea Documented by: [id number] Admin: 06/27/18 08:30 Dose: 1 ea Documented by: [id number] Miscellaneous (Fentanyl Patch Remove & Waste) 1 ea N/A Q2D@0859 [facility] Stop: 07/28/18 08:58 Last Admin: 06/30/18 09:11 Dose: 1 ea Documented by: [id number] Cosigned by: [id number] Admin: 06/28/18 07:22 Dose: 1 ea Documented by: [id number] Cosigned by: [id number] Ondansetron HCl (Zofran) 4 mg IV Q4H PRN PRN Reason: Nausea Stop: 07/29/18 09:18 Last Admin: 06/30/18 12:31 Dose: 4 mg Documented by: [id number] Admin: 06/30/18 09:07 Dose: 4 mg Documented by: [id number] Admin: 06/30/18 03:56 Dose: 4 mg Documented by: [id number] Admin: 06/29/18 19:38 Dose: 4 mg Documented by: [id number] Admin: 06/29/18 09:41 Dose: 4 mg Documented by: [id number] Pantoprazole Sodium (Protonix) 40 mg PO HS [facility] Stop: 07/27/18 02:59 Last Admin: 06/29/18 19:42 Dose: 40 mg Documented by: [id number] Admin: 06/28/18 20:30 Dose: 40 mg Documented by: [id number] Admin: 06/27/18 20:54 Dose: 40 mg Documented by: [id number] Admin: 06/27/18 02:51 Dose: 40 mg Documented by: [id number] Prochlorperazine (Compazine) 10 mg PO Q6H PRN PRN Reason: Nausea Stop: 07/30/18 15:12 Last Admin: 06/30/18 16:33 Dose: 10 mg Documented by: [id number] Sennosides (Senokot) 8.6 mg PO QAM [facility] Stop: 07/27/18 01:59 Last Admin: 06/30/18 09:14 Dose: 8.6 mg Documented by: [id number] Admin: 06/29/18 08:14 Dose: 8.6 mg Documented by: [id number] Admin: 06/28/18 07:23 Dose: 8.6 mg Documented by: [id number] Admin: 06/27/18 08:31 Dose: 8.6 mg Documented by: [id number] Admin: 06/27/18 02:51 Dose: 8.6 mg Documented by: [id number] Venlafaxine HCl (Effexor Extended Release) 37.5 mg PO BID [facility] Stop: 07/27/18 01:59 Last Admin: 06/30/18 09:16 Dose: 37.5 mg Documented by: [id number] Admin: 06/29/18 19:43 Dose: 37.5 mg Documented by: [id number] Admin: 06/29/18 08:13 Dose: 37.5 mg Documented by: [id number] Admin: 06/28/18 20:30 Dose: 37.5 mg Documented by: [id number] Admin: 06/28/18 07:23 Dose: 37.5 mg Documented by: [id number] Admin: 06/27/18 20:54 Dose: 37.5 mg Documented by: [id number] Admin: 06/27/18 08:31 Dose: 37.5 mg Documented by: [id number] Admin: 06/27/18 02:51 Dose: 37.5 mg Documented by: [id number] (1) Fever Fever type: unspecified Qualified Code(s): R50.9 - Fever, unspecified (2) Leukocytosis Leukocytosis type: unspecified Qualified Code(s): D72.829 - Elevated white blood cell count, unspecified
[2018-06-30] MEDS: MELOXICAM 7.5 MG TAB PO SCH (19:52)
[2018-06-30] MEDS: PANTOprazole 40 MG TAB PO SCH (19:53)
[2018-07-01] MEDS: CHECK FENTANYL PATCH PLACEMENT SCH ×4 (01:37→23:50)
[2018-07-01 06:39] LABS: Basophils # (auto) 0.03 K/uL (0-0.2); Basophils % (auto) 0.2 %; Eosinophils # (auto) 0.53 K/uL (0-0.5); Immature Granulocytes # (auto) 0.08 K/uL (0.00-0.02); Immature Granulocytes % (auto) 0.6 %; Lymphocytes # (auto) 1.51 K/uL (1.2-3.4); Lymphocytes % (auto) 11.4 %; Mean Corpuscular Hgb Conc 32.4 g/dL (32-36); Mean Corpuscular Volume 94.4 fL (80-100); Mean Platelet Volume 9.6 fL (7.4-10.4); Monocytes # (auto) 1.28 K/uL (0.11-0.59); Monocytes % (auto) 9.7 %; Neutrophils # (auto) 9.82 K/uL (1.4-6.5); Neutrophils % (auto) 74.1 %; Platelet Count 428 K/uL (130-400); RDW Coefficient of Variation 13.8 % (11.5-14.5); RDW Standard Deviation 47.1 fL (36.4-46.3); Red Blood Count 3.92 M/uL (4.7-6.1); White Blood Count 13.25 K/uL (4.8-10.8)
[2018-07-01 07:11] LABS: Albumin Level 2.3 gm/dl (3.4-5.0); BUN Creatinine Ratio 12.9 (10-20); Calcium 8.5 mg/dl (8.5-10.1); Creatinine Clr Calc Pharmacy 89.5 ml/min; Est GFR (African American) 98.8; Est GFR (Non-African American) 85.2; Potassium 4.2 mmol/L (3.5-5.1)
[2018-07-01 07:13] LABS: Bilirubin,Total 0.4 mg/dl (0.2-1)
[2018-07-01 07:14] LABS: Albumin Globulin Ratio 0.5 (0.9-2); Globulin 5.1 gm/dl (2.5-4.0); Total Protein 7.4 gm/dl (6.4-8.2)
--- NOTE | 2018-07-01 07:55 | Family Medicine Progress Note ---
Date of Service July 01, 2018 Assessment & Plan (1) Sepsis: Mr. Alvarez is a 67-year-old male with a history of hypertension, chronic back pain, GERD, depression who presents to the emergency department due to a 1 month history of gradually worsening right sided back pain, cough and weakness. ED course: 1 L normal saline bolus, 15 mg IV ketorolac, duo nebs x1, 1 g magnesium sulfate, 4 mg IV Zofran, 1 g IV acetaminophen, 4.5 g IV Zosyn SEPSIS -Was treated with Zosyn (5doses), Vanc(stopped after MRSA neg resulted), Augmentin (5 doses), Levofloxacin IV 1 dose. -Will resume Zosyn since pulm loculation and still spiking fevers. -Blood Cx x2-NGTD -prn Tylenol q4h for pain/fever -Zofran, compazine prn for nausea -Xoponex nebs prn for SOB/wheeze -Suspected source--pulmonary (possible RLL pneumonia with effusion) vs. biliary tract Leukocytosis -Downtrending, related to infection Fever- -Recurrent even with abx treatment. Likely from pulm source -Back on Zosyn -prn tylenol as above for fever recurrence -will test for lyme, procal, lactate -peripheral smear shows no evidence of anaplasmosis, malaria. Possible pneumonia -cough improving, fevers still recurring. -Associated pleural effusion on right too small to tap per U/S done -incentive spirometry to help break up loculations. -Chest xray to reassess- 2 views. RUQ pain: -IMPROVING -Initial concern of Possible cholangitis picture given leukocytosis, fever, and RUQ pain hx. RUQ ultrasound (06/26) showed no biliary duct dilation but stones were present with no evidence of cholecystitis. -Cancelled HIDA scan ordered for today due to pt being on fentanyl patch chronically. Gallbladder will not contract. -Pain chronic - ? abdominal wall pain. Lymphadenopathy on CT Scan (mediastinal) -likely sec to pulmonary process. follow. -f/u outpatient HTN - controlled -cont to hold amlodipine Chronic back pain -cont home cyclobenzaprine, fentanyl, gabapentin, meloxicam GERD -cont on pantoprazole Depression -cont home venlafaxine CODE STATUS: Full DVT prophylaxis: Lovenox 40 mg SQ daily (2) Leukocytosis: (3) Fever: (4) Pneumonia: (5) Hypoxia: -On admission noted to have desaturated to 85% on room air, continue oxygen as needed. 94% on 2L NC this morning (6) Pleural effusion, right: U/S provided courtesy of Kody Matute PA-C today. Noted that Pleural effusion was small and amount not large enough to warrant thoracentesis. He noted loculations. Recommended Acapella incentive spirometry to provide vibratory effect to break up loculations. - Most likely etiology pneumonia - consideration for transudative process secondary to hypoalbuminemia if no improvement on outpatient follow up. Consider asking if Pulmonology would be willing to re-U/S on Sunday. (7) Right upper quadrant abdominal pain: (8) Lymphadenopathy: (9) Hypertension: (10) Chronic back pain: (11) GERD (gastroesophageal reflux disease): - (12) Depression: Supervising Physician Co-Signing Physician Notes Resident Physician Supervision Note: I independently interviewed and examined the patient and verified the patiño history and physical, reviewed labs and image studies, discussed the case with the resident Dr. Campbell, made edits to the above note and agree with the findings and care plan. Subjective Marcelino Alvarez states that he feels much better today in terms of his abdominal pain, however his pain has since returned. States it is still present, generalized with associated nausea but rates it as a 4/10 compared to the 8/10 when he came in. Still has his cough but states that's much better and his back pain has improved as well. States he is on a fentanyl patch for his back pain. 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 Constitutional: + fatigue, + malaise, + weakness and + anorexia; no fever and no chills Respiratory: + cough and + sputum production; no wheezing Gastrointestinal: + abdominal pain (Right-sided abdominal pain, radiating to the back) and + nausea; no vomiting, no change in bowel habits and no blood in stools Musculoskeletal: + back pain Physical Exam Vital Signs (Past 24 Hours): Last Vital Signs Temp 36.8 C 07/01/18 07:42 Pulse 94 H 07/01/18 07:42 Resp 20 07/01/18 07:42 BP 121/64 07/01/18 07:42 Pulse Ox 90 07/01/18 07:42 General: Alert, oriented. No acute distress HEENT: NC/AT, PERRLA, EOMI, oropharynx moist. Chest: Nontender to palpation. CV: RRR, Normal s1, s2. No murmurs appreciated Resp: Breath sounds clear bilaterally except at right base decreased breath sounds, no increased effort of breathing. No crackles/rhonchi/rales. Abdomen: BS+. Soft, nontender, nondistended. No guarding. No organomegaly appreciated. Extremities: No edema. Results & Data Laboratory Results Laboratory Results - last 24 hr 07/01/18 07/01/18 06:11 06:11 WBC 13.25 H RBC 3.92 L Hgb 12.0 L Hct 37.0 L MCV 94.4 MCH 30.6 MCHC 32.4 RDW Std Deviation 47.1 H RDW Coeff of Netta 13.8 Plt Count 428 H MPV 9.6 Immature Gran % (Auto) 0.6 Neut % (Auto) 74.1 Lymph % (Auto) 11.4 [place] % (Auto) 9.7 Eos % (Auto) 4.0 Baso % (Auto) 0.2 Immature Gran # (Auto) 0.08 H Neut # (Auto) 9.82 H Lymph # (Auto) 1.51 [place] # (Auto) 1.28 H Eos # (Auto) 0.53 H Baso # (Auto) 0.03 Sodium 135 L Potassium 4.2 Chloride 97 L Carbon Dioxide 36 H Anion Gap 2.0 L BUN 12 Creatinine 0.93 Est Cr Clr Drug Dosing 89.5 Est GFR ( Amer) 98.8 Est GFR (Non-Af Amer) 85.2 BUN/Creatinine Ratio 12.9 Glucose 105 H Calcium 8.5 Total Bilirubin 0.4 AST 31 ALT 53 Alkaline Phosphatase 134 H Total Protein 7.4 Albumin 2.3 L Globulin 5.1 H Albumin/Globulin Ratio 0.5 L Medications Administered Home Medications amlodipine 5 mg PO DAILY 06/26/18 [History Confirmed 06/26/18] cyclobenzaprine 10 mg PO HS PRN 06/26/18 [History Confirmed 06/26/18] fentanyl 1 patch TRANSDERMAL Q OTHER DAY 06/26/18 [History Confirmed 06/26/18] gabapentin 600 mg PO BID 06/26/18 [History Confirmed 06/26/18] meloxicam 0 mg PO DAILY 06/26/18 [History Confirmed 06/26/18] omeprazole 20 mg PO BID 06/26/18 [History Confirmed 06/26/18] pseudoephedrine HCl [Sudafed] 30 mg PO DAILY PRN 06/26/18 [History Confirmed 06/26/18] venlafaxine [Effexor XR] 0 mg PO BID 06/26/18 [History Confirmed 06/26/18] Active Medications Acetaminophen (Tylenol) 650 mg PO Q4H PRN PRN Reason: pain/fever Stop: 07/27/18 01:15 Last Admin: 06/30/18 22:33 Dose: 650 mg Documented by: Benzonatate (Tessalon Perle) 100 mg PO TID PRN PRN Reason: Cough Stop: 07/28/18 20:59 Cyclobenzaprine HCl (Flexeril) 10 mg PO HS PRN PRN Reason: Muscle Spasm Stop: 07/27/18 01:15 Last Admin: 06/27/18 21:56 Dose: 10 mg Documented by: Enoxaparin Sodium (Lovenox) 40 mg SQ Q24H [facility] Stop: 07/27/18 08:59 Last Admin: 07/01/18 08:53 Dose: 40 mg Documented by: Fentanyl (Duragesic) 100 mcg TD Q2D@0900 [facility] Stop: 07/12/18 08:59 Last Admin: 06/30/18 09:13 Dose: 100 mcg Documented by: Gabapentin (Neurontin) 600 mg PO BID [facility] Stop: 07/27/18 01:59 Last Admin: 07/01/18 08:52 Dose: 600 mg Documented by: Levalbuterol HCl (Xopenex 0.63 Mg/3 Ml Neb) 0.63 mg NEB Q6R PRN PRN Reason: SOB or wheeze Stop: 07/27/18 01:59 Last Admin: 06/30/18 15:25 Dose: 0.63 mg Documented by: Meloxicam (Mobic) 7.5 mg PO HS [facility] Stop: 07/27/18 02:59 Last Admin: 06/30/18 19:52 Dose: 7.5 mg Documented by: Miscellaneous (Fentanyl Patch Check Placement) 1 ea N/A QS [facility] Stop: 07/27/18 07:59 Last Admin: 07/01/18 08:55 Dose: 1 ea Documented by: Miscellaneous (Fentanyl Patch Remove & Waste) 1 ea N/A Q2D@0859 [facility] Stop: 07/28/18 08:58 Last Admin: 06/30/18 09:11 Dose: 1 ea Documented by: Ondansetron HCl (Zofran) 4 mg IV Q4H PRN PRN Reason: Nausea Stop: 07/29/18 09:18 Last Admin: 06/30/18 12:31 Dose: 4 mg Documented by: Pantoprazole Sodium (Protonix) 40 mg PO HS [facility] Stop: 07/27/18 02:59 Last Admin: 06/30/18 19:53 Dose: 40 mg Documented by: Prochlorperazine (Compazine) 10 mg PO Q6H PRN PRN Reason: Nausea Stop: 07/30/18 15:12 Last Admin: 07/01/18 08:53 Dose: 10 mg Documented by: Sennosides (Senokot) 8.6 mg PO QAM [facility] Stop: 07/27/18 01:59 Last Admin: 07/01/18 08:52 Dose: 8.6 mg Documented by: Venlafaxine HCl (Effexor Extended Release) 37.5 mg PO BID [facility] Stop: 07/27/18 01:59 Last Admin: 07/01/18 08:55 Dose: 37.5 mg Documented by: Resident Activity Tracking Resident Involvement: Resident Care Provided Care Provided: Adult Hospital Medicine (1) Fever Fever type: unspecified Qualified Code(s): R50.9 - Fever, unspecified (2) Leukocytosis Leukocytosis type: unspecified Qualified Code(s): D72.829 - Elevated white blood cell count, unspecified
[2018-07-01] MEDS: GABAPENTIN 600 MG TAB PO SCH ×2 (08:52→21:47)
[2018-07-01] MEDS: SENNA 8.6 MG TAB PO SCH (08:52)
[2018-07-01] MEDS: ENOXAPARIN INJ 40 MG/0.4 ML SYR SQ SCH (08:53)
[2018-07-01] MEDS: PROCHLORPERAZINE MALEATE 10 MG TAB PO PRN (08:53)
[2018-07-01] MEDS: VENLAFAXINE HCL XR 37.5 MG CAPXR PO SCH ×2 (08:55→21:46)
[2018-07-01] MEDS: ACETAMINOPHEN 325 MG TAB PO PRN ×2 (14:11→20:53)
[2018-07-01] MEDS ORDERED: PIPERACILL/TAZOBAC CONSULT ACTIVE PRN (15:05)
[2018-07-01] MEDS ORDERED: PIPERACILLIN/TAZOBACTAM 3.375 GM in DEXTROSE 5% 100 ML IV STA (15:23)
--- NOTE | 2018-07-01 16:06 | XRay Report ---
XR chest 2V routine CLINICAL HISTORY: pleural effusion pleural effusion COMPARISON STUDY: 06/29/2018 FINDINGS: Stable bibasilar atelectasis. Chronic elevation right hemidiaphragm. Lungs otherwise appear clear. Stable degenerative changes thoracic spine. IMPRESSION: Chronic bibasilar atelectasis. Otherwise negative chest. No major change as compared to the prior study. The above report was generated using voice recognition software. It may contain grammatical, syntax or spelling errors. Electronically signed by: Dario Virgen M.D. 07/01/2018 4:04 PM
[2018-07-01] MEDS: ONDANSETRON INJ 2 MG/ML 2 ML VIAL IV PRN (18:31)
[2018-07-01 20:14] LABS: Lyme Ab IgG w/WB Rflx Negative (Negative); Lyme Ab IgM w/WB Rflx Negative (Negative)
[2018-07-01] MEDS: PANTOprazole 40 MG TAB PO SCH (21:46)
[2018-07-01] MEDS: MELOXICAM 7.5 MG TAB PO SCH (21:47)
[2018-07-01] MEDS: PIPERACILLIN/TAZOBACTAM 3.375 GM in DEXTROSE 5% 100 ML IV SCH (21:48)
[2018-07-02] MEDS: ACETAMINOPHEN 325 MG TAB PO PRN ×3 (03:06→21:49)
[2018-07-02] MEDS: PIPERACILLIN/TAZOBACTAM 3.375 GM in DEXTROSE 5% 100 ML IV SCH ×3 (05:54→21:51)
[2018-07-02 07:00] LABS: Basophils # (auto) 0.04 K/uL (0-0.2); Basophils % (auto) 0.4 %; Eosinophils % (auto) 5.4 %; Hematocrit (blood only) 33.7 % (42-52); Hemoglobin 10.9 g/dL (14.0-18.0); Immature Granulocytes # (auto) 0.09 K/uL (0.00-0.02); Immature Granulocytes % (auto) 0.8 %; Lymphocytes # (auto) 1.59 K/uL (1.2-3.4); Lymphocytes % (auto) 14.2 %; Mean Corpuscular Hgb Conc 32.3 g/dL (32-36); Mean Corpuscular Volume 92.3 fL (80-100); Mean Platelet Volume 9.3 fL (7.4-10.4); Monocytes # (auto) 1.46 K/uL (0.11-0.59); Neutrophils # (auto) 7.41 K/uL (1.4-6.5); Neutrophils % (auto) 66.2 %; Platelet Count 390 K/uL (130-400); RDW Coefficient of Variation 13.7 % (11.5-14.5); RDW Standard Deviation 46.1 fL (36.4-46.3); Red Blood Count 3.65 M/uL (4.7-6.1); White Blood Count 11.19 K/uL (4.8-10.8)
[2018-07-02 07:32] LABS: Albumin Level 2.1 gm/dl (3.4-5.0); BUN Creatinine Ratio 13.1 (10-20); Calcium 8.1 mg/dl (8.5-10.1); Creatinine Clr Calc Pharmacy 86.7 ml/min; Est GFR (African American) 95.1; Potassium 3.7 mmol/L (3.5-5.1)
[2018-07-02 07:35] LABS: Albumin Globulin Ratio 0.4 (0.9-2); Bilirubin,Total 0.4 mg/dl (0.2-1); Globulin 4.8 gm/dl (2.5-4.0); Total Protein 6.9 gm/dl (6.4-8.2)
[2018-07-02] MEDS: ONDANSETRON INJ 2 MG/ML 2 ML VIAL IV PRN ×4 (07:57→23:38)
[2018-07-02] MEDS: CHECK FENTANYL PATCH PLACEMENT SCH ×3 (08:01→23:49)
[2018-07-02 08:28] LABS: Appearance Urine Clear (Clear); Bilirubin Urine Negative (Negative); Blood Urine Negative (Negative); Color Urine Yellow; Glucose Urine UA Negative (Negative); Ketones Urine Negative (Negative); Leukocyte Esterase Urine Negative (Negative); Nitrite Urine Negative (Negative); Protein Urine Negative (Negative); Specific Gravity Urine 1.008 (1.000-1.030); Urobilinogen Urine Negative (Negative); pH Urine 5.5 (4.5-7.5)
[2018-07-02] MEDS: fentaNYL 100 MCG/HR TDSY TD SCH (08:33)
[2018-07-02] MEDS: SENNA 8.6 MG TAB PO SCH (08:33)
[2018-07-02] MEDS: GABAPENTIN 600 MG TAB PO SCH ×2 (08:33→20:43)
[2018-07-02] MEDS: ENOXAPARIN INJ 40 MG/0.4 ML SYR SQ SCH (08:34)
[2018-07-02] MEDS: VENLAFAXINE HCL XR 37.5 MG CAPXR PO SCH ×2 (08:35→20:44)
[2018-07-02] MEDS ORDERED: OXYCODONE HCL IR 5 MG TAB (IMMEDIATE RELEASE) PO STA (11:48)
--- NOTE | 2018-07-02 15:05 | Family Medicine Progress Note ---
Date of Service July 02, 2018 Assessment & Plan (1) Sepsis: Mr. Alvarez is a 67-year-old male with a history of hypertension, chronic back pain, GERD, depression who presents to the emergency department due to a 1 month history of gradually worsening right sided back pain, cough and weakness. ED course: 1 L normal saline bolus, 15 mg IV ketorolac, duo nebs x1, 1 g magnesium sulfate, 4 mg IV Zofran, 1 g IV acetaminophen, 4.5 g IV Zosyn SEPSIS -Was treated with Zosyn (5doses), Vanc(stopped after MRSA neg resulted), Augmentin (5 doses), Levofloxacin IV 1 dose. -Resumed Zosyn since pulm loculation and still spiking fevers. -Blood Cx x2-NGTD -prn Tylenol q4h for pain/fever -Zofran, compazine prn for nausea -Xoponex nebs prn for SOB/wheeze -Suspected source--pulmonary (possible RLL pneumonia with effusion) vs. biliary tract Leukocytosis -Downtrending, related to infection Fever- -Recurrent even with abx treatment. Likely from pulm source -Back on Zosyn -prn tylenol as above for fever recurrence -lyme Negative, procal unremarkable -peripheral smear shows no evidence of anaplasmosis, malaria. Pneumonia -cough improving, fevers still recurring. -Associated pleural effusion on right too small to tap per U/S done -incentive spirometry to help break up loculations. -Chest xray to reassess- 2 views- no infiltrate noted. RUQ pain: -IMPROVING -Initial concern of Possible cholangitis picture given leukocytosis, fever, and RUQ pain hx. RUQ ultrasound (06/26) showed no biliary duct dilation but stones were present with no evidence of cholecystitis. -Cancelled HIDA scan ordered for today due to pt being on fentanyl patch chronically. Gallbladder will not contract. -Pain chronic - ? abdominal wall pain. Lymphadenopathy on CT Scan (mediastinal) -likely sec to pulmonary process. follow. -f/u outpatient HTN - controlled -cont to hold amlodipine Chronic back pain -cont home cyclobenzaprine, fentanyl, gabapentin, meloxicam GERD -cont on pantoprazole Depression -cont home venlafaxine CODE STATUS: Full DVT prophylaxis: Lovenox 40 mg SQ daily If continues to be afebrile - anticipate d/c home in am Supervising Physician Co-Signing Physician Notes Resident Physician Supervision Note: I independently interviewed and examined the patient and verified the patiño history and physical, reviewed labs and image studies, discussed the case with t resident Dr. Campbell and agree with the findings and care plan. Subjective Mr. Alvarez states his symptoms are relatively unchanged from the day prior. Still has the abdominal pain, back pain and cough. Also requesting additional pain relief as he believes he's withdrawing after his fentanyl patch was changed. Review of Systems All systems reviewed & are unremarkable except as noted in HPI & below Physical Exam Vital Signs (Past 24 Hours): Last Vital Signs Temp 37.3 C 07/02/18 07:21 Pulse 80 07/02/18 12:05 Resp 18 07/02/18 07:21 BP 130/79 07/02/18 12:05 Pulse Ox 92 07/02/18 07:21 General: Alert, oriented. No acute distress HEENT: NC/AT, PERRLA, EOMI, oropharynx moist. Chest: Nontender to palpation. CV: RRR, Normal s1, s2. No murmurs appreciated Resp: Breath sounds clear bilaterally except at right base decreased breath sounds, no increased effort of breathing. No crackles/rhonchi/rales. Abdomen: BS+. Soft, nontender, nondistended. No guarding. No organomegaly appreciated. Extremities: No edema. Results & Data Laboratory Results Laboratory Results - last 24 hr 07/01/18 07/02/18 07/02/18 18:56 06:50 06:50 WBC 11.19 H RBC 3.65 L Hgb 10.9 L Hct 33.7 L MCV 92.3 MCH 29.9 MCHC 32.3 RDW Std Deviation 46.1 RDW Coeff of Netta 13.7 Plt Count 390 MPV 9.3 Immature Gran % (Auto) 0.8 Neut % (Auto) 66.2 Lymph % (Auto) 14.2 [place] % (Auto) 13.0 Eos % (Auto) 5.4 Baso % (Auto) 0.4 Immature Gran # (Auto) 0.09 H Neut # (Auto) 7.41 H Lymph # (Auto) 1.59 [place] # (Auto) 1.46 H Eos # (Auto) 0.60 H Baso # (Auto) 0.04 Sodium 134 L Potassium 3.7 Chloride 97 L Carbon Dioxide 34 H Anion Gap 3.0 BUN 13 Creatinine 0.96 Est Cr Clr Drug Dosing 86.7 Est GFR ( Amer) 95.1 Est GFR (Non-Af Amer) 82.0 BUN/Creatinine Ratio 13.1 Glucose 109 H Calcium 8.1 L Total Bilirubin 0.4 AST 22 ALT 38 Alkaline Phosphatase 109 Total Protein 6.9 Albumin 2.1 L Globulin 4.8 H Albumin/Globulin Ratio 0.4 L Urine Color Urine Appearance Urine pH Ur Specific [place] Urine Protein Urine Glucose (UA) Urine Ketones Urine Blood Urine Nitrite Urine Bilirubin Urine Urobilinogen Ur Leukocyte Esterase Lyme Disease IgG Ab Negative Lyme Disease IgM Ab Negative 07/02/18 08:06 WBC RBC Hgb Hct MCV MCH MCHC RDW Std Deviation RDW Coeff of [place] Plt Count MPV Immature Gran % (Auto) Neut % (Auto) Lymph % (Auto) [place] % (Auto) Eos % (Auto) Baso % (Auto) Immature Gran # (Auto) Neut # (Auto) Lymph # (Auto) [place] # (Auto) Eos # (Auto) Baso # (Auto) Sodium Potassium Chloride Carbon Dioxide Anion Gap BUN Creatinine Est Cr Clr Drug Dosing Est GFR ( Amer) Est GFR (Non-Af Amer) BUN/Creatinine Ratio Glucose Calcium Total Bilirubin AST ALT Alkaline Phosphatase Total Protein Albumin Globulin Albumin/Globulin Ratio Urine Color Yellow Urine Appearance Clear Urine pH 5.5 Ur Specific [place] 1.008 Urine Protein Negative Urine Glucose (UA) Negative Urine Ketones Negative Urine Blood Negative Urine Nitrite Negative Urine Bilirubin Negative Urine Urobilinogen Negative Ur Leukocyte Esterase Negative Lyme Disease IgG Ab Lyme Disease IgM Ab Medications Administered Home Medications amlodipine 5 mg PO DAILY 06/26/18 [History Confirmed 06/26/18] cyclobenzaprine 10 mg PO HS PRN 06/26/18 [History Confirmed 06/26/18] fentanyl 1 patch TRANSDERMAL Q OTHER DAY 06/26/18 [History Confirmed 06/26/18] gabapentin 600 mg PO BID 06/26/18 [History Confirmed 06/26/18] meloxicam 0 mg PO DAILY 06/26/18 [History Confirmed 06/26/18] omeprazole 20 mg PO BID 06/26/18 [History Confirmed 06/26/18] pseudoephedrine HCl [Sudafed] 30 mg PO DAILY PRN 06/26/18 [History Confirmed 06/26/18] venlafaxine [Effexor XR] 0 mg PO BID 06/26/18 [History Confirmed 06/26/18] Active Medications Acetaminophen (Tylenol) 650 mg PO Q4H PRN PRN Reason: pain/fever Stop: 07/27/18 01:15 Last Admin: 07/02/18 08:00 Dose: 650 mg Documented by: Benzonatate (Tessalon Perle) 100 mg PO TID PRN PRN Reason: Cough Stop: 07/28/18 20:59 Cyclobenzaprine HCl (Flexeril) 10 mg PO HS PRN PRN Reason: Muscle Spasm Stop: 07/27/18 01:15 Last Admin: 06/27/18 21:56 Dose: 10 mg Documented by: Enoxaparin Sodium (Lovenox) 40 mg SQ Q24H [facility] Stop: 07/27/18 08:59 Last Admin: 07/02/18 08:34 Dose: 40 mg Documented by: Fentanyl (Duragesic) 100 mcg TD Q2D@0900 [facility] Stop: 07/12/18 08:59 Last Admin: 07/02/18 08:33 Dose: 100 mcg Documented by: Gabapentin (Neurontin) 600 mg PO BID [facility] Stop: 07/27/18 01:59 Last Admin: 07/02/18 08:33 Dose: 600 mg Documented by: Piperacillin Sod/Tazobactam (Sod 3.375 gm/ Dextrose) 115 mls @ 28.75 mls/hr IV Q8H [facility] Stop: 07/08/18 21:59 Last Admin: 07/02/18 13:29 Dose: 28.8 mls/hr Documented by: Levalbuterol HCl (Xopenex 0.63 Mg/3 Ml Neb) 0.63 mg NEB Q6R PRN PRN Reason: SOB or wheeze Stop: 07/27/18 01:59 Last Admin: 06/30/18 15:25 Dose: 0.63 mg Documented by: Meloxicam (Mobic) 7.5 mg PO HS [facility] Stop: 07/27/18 02:59 Last Admin: 07/01/18 21:47 Dose: 7.5 mg Documented by: Miscellaneous (Fentanyl Patch Check Placement) 1 ea N/A QS [facility] Stop: 07/27/18 07:59 Last Admin: 07/02/18 08:01 Dose: 1 ea Documented by: Miscellaneous (Fentanyl Patch Remove & Waste) 1 ea N/A Q2D@0859 [facility] Stop: 07/28/18 08:58 Last Admin: 07/02/18 08:35 Dose: 1 ea Documented by: Miscellaneous Information (Consult) 1 ea N/A UD PRN PRN Reason: Consult Stop: 07/31/18 15:04 Ondansetron HCl (Zofran) 4 mg IV Q4H PRN PRN Reason: Nausea Stop: 07/29/18 09:18 Last Admin: 07/02/18 13:43 Dose: 4 mg Documented by: Pantoprazole Sodium (Protonix) 40 mg PO HS [facility] Stop: 07/27/18 02:59 Last Admin: 07/01/18 21:46 Dose: 40 mg Documented by: Prochlorperazine (Compazine) 10 mg PO Q6H PRN PRN Reason: Nausea Stop: 07/30/18 15:12 Last Admin: 07/01/18 08:53 Dose: 10 mg Documented by: Sennosides (Senokot) 8.6 mg PO QAM [facility] Stop: 07/27/18 01:59 Last Admin: 07/02/18 08:33 Dose: 8.6 mg Documented by: Venlafaxine HCl (Effexor Extended Release) 37.5 mg PO BID [facility] Stop: 07/27/18 01:59 Last Admin: 07/02/18 08:35 Dose: 37.5 mg Documented by: Resident Activity Tracking Resident Involvement: Resident Care Provided Care Provided: Adult Hospital Medicine
[2018-07-02] MEDS: PANTOprazole 40 MG TAB PO SCH (20:43)
[2018-07-02] MEDS: MELOXICAM 7.5 MG TAB PO SCH (20:43)
[2018-07-03] MEDS: ACETAMINOPHEN 325 MG TAB PO PRN ×2 (02:32→07:39)
[2018-07-03] MEDS: PIPERACILLIN/TAZOBACTAM 3.375 GM in DEXTROSE 5% 100 ML IV SCH ×3 (05:50→21:49)
[2018-07-03] MEDS: CHECK FENTANYL PATCH PLACEMENT SCH ×3 (07:37→23:01)
[2018-07-03 07:47] LABS: Basophils # (auto) 0.03 K/uL (0-0.2); Basophils % (auto) 0.3 %; Eosinophils # (auto) 0.43 K/uL (0-0.5); Eosinophils % (auto) 3.8 %; Hematocrit (blood only) 36.9 % (42-52); Hemoglobin 12.1 g/dL (14.0-18.0); Immature Granulocytes # (auto) 0.12 K/uL (0.00-0.02); Immature Granulocytes % (auto) 1.1 %; Lymphocytes # (auto) 1.48 K/uL (1.2-3.4); Mean Corpuscular Hgb Conc 32.8 g/dL (32-36); Mean Corpuscular Volume 91.8 fL (80-100); Mean Platelet Volume 9.4 fL (7.4-10.4); Monocytes # (auto) 1.23 K/uL (0.11-0.59); Monocytes % (auto) 10.8 %; Neutrophils # (auto) 8.13 K/uL (1.4-6.5); Platelet Count 456 K/uL (130-400); RDW Coefficient of Variation 13.6 % (11.5-14.5); RDW Standard Deviation 45.5 fL (36.4-46.3); Red Blood Count 4.02 M/uL (4.7-6.1); White Blood Count 11.42 K/uL (4.8-10.8)
[2018-07-03] MEDS: SENNA 8.6 MG TAB PO SCH (08:14)
[2018-07-03] MEDS: GABAPENTIN 600 MG TAB PO SCH ×2 (08:14→21:44)
[2018-07-03] MEDS: ENOXAPARIN INJ 40 MG/0.4 ML SYR SQ SCH (08:15)
[2018-07-03] MEDS: VENLAFAXINE HCL XR 37.5 MG CAPXR PO SCH ×2 (08:16→21:45)
[2018-07-03 08:19] LABS: Albumin Level 2.4 gm/dl (3.4-5.0); BUN Creatinine Ratio 14.9 (10-20); Calcium 8.8 mg/dl (8.5-10.1); Creatinine Clr Calc Pharmacy 86.7 ml/min; Est GFR (African American) 95.1; Potassium 3.7 mmol/L (3.5-5.1)
[2018-07-03 08:22] LABS: Albumin Globulin Ratio 0.4 (0.9-2); Bilirubin,Total 0.4 mg/dl (0.2-1); Globulin 5.5 gm/dl (2.5-4.0); Total Protein 7.9 gm/dl (6.4-8.2)
[2018-07-03] MEDS: ONDANSETRON INJ 2 MG/ML 2 ML VIAL IV PRN ×2 (09:30→18:16)
[2018-07-03] MEDS: PROCHLORPERAZINE MALEATE 10 MG TAB PO PRN ×2 (11:24→22:47)
--- NOTE | 2018-07-03 11:28 | Family Medicine Progress Note ---
Date of Service July 03, 2018 Assessment & Plan (1) Sepsis: Mr. Alvarez is a 67-year-old male with a history of hypertension, chronic back pain, GERD, depression who presents to the emergency department due to a 1 month history of gradually worsening right sided back pain, RUQ abdominal pain, cough and weakness. SEPSIS, fever and leukocytosis likely secondary to pneumonia with loculated pleural effusion/biliary source -WBC Downtrending, related to infection -Still spiking fevers in spite of Zosyn treatment. -Workup with possible ERCP for atypical cholangitis? Hx of and current RUQ pain, leukocytosis, fevers. Repeat RUQ US ordered. Possible GI consult? HIDA d/c as pt on fentanyl. -JELENA pending for possible rheumatological source given chronic back pain, fever non responsive to abx -lyme Negative, procal unremarkable -peripheral smear shows no evidence of anaplasmosis, malaria. -Was treated with Zosyn (5doses), Vanc(stopped after MRSA neg resulted), Augmentin (5 doses), Levofloxacin IV 1 dose. -Resumed Zosyn since pulm loculation and still spiking fevers. -Blood Cx x2-No growth -Xoponex nebs prn for SOB/wheeze -consult thoracic surgery for evaluation of loculated pleural effusion - too small to tap per U/S -cough improving, -incentive spirometry. -Chest xray to reassess- 2 views- no infiltrate noted. RUQ pain: -RETURNED especially when sitting up. -Initial concern of Possible cholangitis picture given leukocytosis, fever, and RUQ pain hx. RUQ ultrasound (06/26) showed no biliary duct dilation but stones were present with no evidence of cholecystitis. -Cancelled HIDA scan ordered for today due to pt being on fentanyl patch chronically. Gallbladder will not contract. -Pain ? abdominal wall pain/loculated pleural effusion. Lymphadenopathy on CT Scan (mediastinal) -likely sec to pulmonary process. follow. -f/u outpatient HTN - controlled -cont to hold amlodipine Chronic back pain -cont home cyclobenzaprine, fentanyl, gabapentin, meloxicam GERD -cont on pantoprazole Depression -cont home venlafaxine CODE STATUS: Full DVT prophylaxis: Lovenox 40 mg SQ daily Supervising Physician Co-Signing Physician Notes Resident Physician Supervision Note: I independently interviewed and examined the patient and verified the patiño history and physical, reviewed labs and image studies, discussed the case with the resident Dr. Campbell and agree with the findings and care plan. Subjective Pt states that his RUQ pain has returned and it's particularly present when he's sitting up. Can point to it. Not associated with food consumption. States he still feels the same. Denies N/V, change to bowels. Review of Systems All systems reviewed & are unremarkable except as noted in HPI & below Physical Exam Vital Signs (Past 24 Hours): Last Vital Signs Temp 36.6 C 07/03/18 08:18 Pulse 72 07/03/18 07:35 Resp 18 07/03/18 07:35 BP 133/78 07/03/18 07:35 Pulse Ox 94 07/03/18 07:35 General: Alert, oriented. HEENT: NC/AT, PERRLA, EOMI, oropharynx moist. Chest: Nontender to palpation. CV: RRR, Normal s1, s2. No murmurs appreciated Resp: Breath sounds clear bilaterally except at right base decreased breath sounds, no increased effort of breathing. No crackles/rhonchi/rales. Abdomen: BS+. Soft, tender to palpation in RUQ when sitting but not when laying down, nondistended. No rebound or guarding. No organomegaly appreciated. Neg McBurneys Extremities: No edema. Results & Data Laboratory Results Laboratory Results - last 24 hr 07/03/18 07/03/18 07:36 07:36 WBC 11.42 H RBC 4.02 L Hgb 12.1 L Hct 36.9 L MCV 91.8 MCH 30.1 MCHC 32.8 RDW Std Deviation 45.5 RDW Coeff of Netta 13.6 Plt Count 456 H MPV 9.4 Immature Gran % (Auto) 1.1 Neut % (Auto) 71.0 Lymph % (Auto) 13.0 [place] % (Auto) 10.8 Eos % (Auto) 3.8 Baso % (Auto) 0.3 Immature Gran # (Auto) 0.12 H Neut # (Auto) 8.13 H Lymph # (Auto) 1.48 [place] # (Auto) 1.23 H Eos # (Auto) 0.43 Baso # (Auto) 0.03 Sodium 136 Potassium 3.7 Chloride 98 Carbon Dioxide 33 H Anion Gap 5.0 BUN 14 Creatinine 0.96 Est Cr Clr Drug Dosing 86.7 Est GFR ( Amer) 95.1 Est GFR (Non-Af Amer) 82.0 BUN/Creatinine Ratio 14.9 Glucose 98 Calcium 8.8 Total Bilirubin 0.4 AST 23 ALT 36 Alkaline Phosphatase 112 Total Protein 7.9 Albumin 2.4 L Globulin 5.5 H Albumin/Globulin Ratio 0.4 L Medications Administered Home Medications amlodipine 5 mg PO DAILY 06/26/18 [History Confirmed 06/26/18] cyclobenzaprine 10 mg PO HS PRN 06/26/18 [History Confirmed 06/26/18] fentanyl 1 patch TRANSDERMAL Q OTHER DAY 06/26/18 [History Confirmed 06/26/18] gabapentin 600 mg PO BID 06/26/18 [History Confirmed 06/26/18] meloxicam 0 mg PO DAILY 06/26/18 [History Confirmed 06/26/18] omeprazole 20 mg PO BID 06/26/18 [History Confirmed 06/26/18] pseudoephedrine HCl [Sudafed] 30 mg PO DAILY PRN 06/26/18 [History Confirmed 06/26/18] venlafaxine [Effexor XR] 0 mg PO BID 06/26/18 [History Confirmed 06/26/18] Active Medications Acetaminophen (Tylenol) 650 mg PO Q4H PRN PRN Reason: pain/fever Stop: 07/27/18 01:15 Last Admin: 07/03/18 07:39 Dose: 650 mg Documented by: Benzonatate (Tessalon Perle) 100 mg PO TID PRN PRN Reason: Cough Stop: 07/28/18 20:59 Cyclobenzaprine HCl (Flexeril) 10 mg PO HS PRN PRN Reason: Muscle Spasm Stop: 07/27/18 01:15 Last Admin: 06/27/18 21:56 Dose: 10 mg Documented by: Enoxaparin Sodium (Lovenox) 40 mg SQ Q24H [facility] Stop: 07/27/18 08:59 Last Admin: 07/03/18 08:15 Dose: 40 mg Documented by: Fentanyl (Duragesic) 100 mcg TD Q2D@0900 [facility] Stop: 07/12/18 08:59 Last Admin: 07/02/18 08:33 Dose: 100 mcg Documented by: Gabapentin (Neurontin) 600 mg PO BID [facility] Stop: 07/27/18 01:59 Last Admin: 07/03/18 08:14 Dose: 600 mg Documented by: Piperacillin Sod/Tazobactam (Sod 3.375 gm/ Dextrose) 115 mls @ 28.75 mls/hr IV Q8H [facility] Stop: 07/08/18 21:59 Last Infusion: 07/03/18 09:50 Dose: Infused Documented by: Levalbuterol HCl (Xopenex 0.63 Mg/3 Ml Neb) 0.63 mg NEB Q6R PRN PRN Reason: SOB or wheeze Stop: 07/27/18 01:59 Last Admin: 06/30/18 15:25 Dose: 0.63 mg Documented by: Meloxicam (Mobic) 7.5 mg PO [facility] Stop: 07/27/18 02:59 Last Admin: 07/02/18 20:43 Dose: 7.5 mg Documented by: Miscellaneous (Fentanyl Patch Check Placement) 1 ea N/A QS [facility] Stop: 07/27/18 07:59 Last Admin: 07/03/18 07:37 Dose: 1 ea Documented by: Miscellaneous (Fentanyl Patch Remove & Waste) 1 ea N/A Q2D@0859 [facility] Stop: 07/28/18 08:58 Last Admin: 07/02/18 08:35 Dose: 1 ea Documented by: Miscellaneous Information (Consult) 1 ea N/A UD PRN PRN Reason: Consult Stop: 07/31/18 15:04 Ondansetron HCl (Zofran) 4 mg IV Q4H PRN PRN Reason: Nausea Stop: 07/29/18 09:18 Last Admin: 07/03/18 09:30 Dose: 4 mg Documented by: Pantoprazole Sodium (Protonix) 40 mg PO [facility] Stop: 07/27/18 02:59 Last Admin: 07/02/18 20:43 Dose: 40 mg Documented by: Prochlorperazine (Compazine) 10 mg PO Q6H PRN PRN Reason: Nausea Stop: 07/30/18 15:12 Last Admin: 07/03/18 11:24 Dose: 10 mg Documented by: Sennosides (Senokot) 8.6 mg PO QAM [facility] Stop: 07/27/18 01:59 Last Admin: 07/03/18 08:14 Dose: 8.6 mg Documented by: Venlafaxine HCl (Effexor Extended Release) 37.5 mg PO BID [facility] Stop: 07/27/18 01:59 Last Admin: 07/03/18 08:16 Dose: 37.5 mg Documented by: Resident Activity Tracking Resident Involvement: Resident Care Provided Care Provided: Adult Hospital Medicine
--- NOTE | 2018-07-03 12:34 | Ultrasound Report ---
ABDOMINAL ULTRASOUND, RIGHT UPPER QUADRANT HISTORY: RUQ - eval for new cholecystitis. COMPARISON: Right upper quadrant ultrasound and CT of the abdomen and pelvis June 26, 2018. FINDINGS: This exam is compromised by suboptimal penetration. Hepatic echogenicity is increased consi stent with fatty infiltration. The pancreas is obscured by overlying bowel gas. There is no biliary d uctal dilatation. The common bile duct measures 6 mm in caliber. Several gallstones are noted. Gallbl adder wall thickness is at the upper limits of normal. The gallbladder is not distended. There is no pericholecystic fluid. IMPRESSION: 1. Cholelithiasis. No evidence for acute cholecystitis. 2. Fatty liver. 3. Obscured pancreas. Electronically signed by: Teo Paulino M.D. 07/03/2018 12:33 PM
[2018-07-03 15:29] LABS: Anti Nuclear Antibody Screen NEGATIVE (NEGATIVE)
[2018-07-03] MEDS: PANTOprazole 40 MG TAB PO SCH (21:44)
[2018-07-03] MEDS: MELOXICAM 7.5 MG TAB PO SCH (21:44)
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
[2018-07-04] MEDS: ONDANSETRON INJ 2 MG/ML 2 ML VIAL IV PRN ×3 (03:05→22:35)
[2018-07-04] MEDS: PROCHLORPERAZINE MALEATE 10 MG TAB PO PRN ×3 (05:11→17:23)
[2018-07-04] MEDS: PIPERACILLIN/TAZOBACTAM 3.375 GM in DEXTROSE 5% 100 ML IV SCH ×3 (05:22→21:19)
[2018-07-04 06:13] LABS: Basophils # (auto) 0.03 K/uL (0-0.2); Basophils % (auto) 0.3 %; Eosinophils # (auto) 0.61 K/uL (0-0.5); Eosinophils % (auto) 5.2 %; Hematocrit (blood only) 35.3 % (42-52); Hemoglobin 11.4 g/dL (14.0-18.0); Immature Granulocytes # (auto) 0.12 K/uL (0.00-0.02); Lymphocytes # (auto) 1.77 K/uL (1.2-3.4); Mean Corpuscular Hgb Conc 32.3 g/dL (32-36); Mean Corpuscular Volume 92.2 fL (80-100); Mean Platelet Volume 9.6 fL (7.4-10.4); Monocytes # (auto) 1.29 K/uL (0.11-0.59); Neutrophils # (auto) 7.95 K/uL (1.4-6.5); Neutrophils % (auto) 67.5 %; Platelet Count 503 K/uL (130-400); RDW Coefficient of Variation 13.7 % (11.5-14.5); RDW Standard Deviation 46.1 fL (36.4-46.3); Red Blood Count 3.83 M/uL (4.7-6.1); White Blood Count 11.77 K/uL (4.8-10.8)
[2018-07-04 06:45] LABS: Albumin Level 2.1 gm/dl (3.4-5.0); BUN Creatinine Ratio 15.8 (10-20); Calcium 8.4 mg/dl (8.5-10.1); Creatinine Clr Calc Pharmacy 95.7 ml/min; Est GFR (African American) 104.2; Est GFR (Non-African American) 89.9
[2018-07-04 06:47] LABS: Albumin Globulin Ratio 0.4 (0.9-2); Bilirubin,Total 0.4 mg/dl (0.2-1); Globulin 5.1 gm/dl (2.5-4.0); Total Protein 7.2 gm/dl (6.4-8.2)
[2018-07-04] MEDS: CHECK FENTANYL PATCH PLACEMENT SCH ×2 (08:15→15:54)
[2018-07-04] MEDS: ENOXAPARIN INJ 40 MG/0.4 ML SYR SQ SCH (08:16)
[2018-07-04] MEDS: GABAPENTIN 600 MG TAB PO SCH ×2 (08:16→21:20)
[2018-07-04] MEDS: SENNA 8.6 MG TAB PO SCH (08:17)
[2018-07-04] MEDS: VENLAFAXINE HCL XR 37.5 MG CAPXR PO SCH ×2 (08:17→21:20)
[2018-07-04] MEDS: fentaNYL 100 MCG/HR TDSY TD SCH (08:48)
--- NOTE | 2018-07-04 10:18 | Gastrointestinal Consultation ---
Date of Consultation July 04, 2018 Assessment & Plan (1) Pleural effusion, right: (2) Right upper quadrant abdominal pain: (3) Fever: (4) Leukocytosis: Given the normal liver panel and lack of significant biliary ductal dilation, doubt cholangitis as an explanation for this patient's persistent pain and fever. Discussed with Dr. Michael in this regard. Will plan to perform MRCP for further evaluation in this regard, however. If negative, no role for ERCP in this patient. Patient is also pending a thoracoscopy by Dr. Zhao. Additional GI recommendations pending results of imaging. Continue IV antibiotics as prescribed. Supervising Physician Co-Signing Physician Notes Agree with FELICITAS Thomas as above Abd: Soft, NT, ND, +BS MRCP negative Continue current therapy. No plans for EGD at present. History of Present Illness Reason for Consultation: Persistent fever and RUQ pain Requesting Physician: Dr. Michael Attending Physician: Candy Michael MD History of Present Illness Patient is a 67 year-old male with a history of persistent RUQ pain radiating into the right flank as well as weakness and cough that has reportedly been ongoing for 1-2 months per his report. He states that symptoms are not exacerbated by eating. No alleviating factors. Due to worsening abdominal pain, he presented to the ER 06/27/09. Upon arrival, he was found to have leukocytosis and fever as well as abnormal imaging of the lungs with suggestive atelectasis cholelithiasis without cholecystitis. He was treated with IV antibiotics but he has continued to have spiking fevers despite changing antibiotic to Zosyn. Further imaging studies were therefore obtained and he was noted to have a CBD measuring 6 mm and GB wall thickness at upper limits of normal without cholecystitis. His liver panel has also remained normal with the exception of a slight elevation on 06/30 and 07/01 with a AST of 71 and ALP of 168 and 134 respectively. Liver panel has since normalized despite not lack of improvement in symptomatology. Chest CT imaging did demonstrate a right pleural effusion and ? pneumonia. Due to this and persistent fever, Dr. Zhao is planning for a diagnostic thoracoscopy. Allergies Allergy/AdvReac Type Severity Reaction Status Date / Time bee venom protein (honey bee) Allergy Intermediate EXCESSIVE Verified 06/26/18 19:50 SWELLING AT SITE sulfamethoxazole Allergy Intermediate TONGUE Verified 06/26/18 19:50 SWELLS, WHITE BLISTERS IN MOUTH. trimethoprim Allergy Intermediate TONGUE Verified 06/26/18 19:50 SWELLS, WHITE BLISTERS IN MOUTH. adhesive Allergy Mild SKIN Verified 06/26/18 19:50 IRRITATION Bactrim Allergy Unknown . Unverified 07/23/15 11:07 morphine AdvReac Intermediate PROJECTILE Verified 07/02/18 12:02 VOMITING Home Medications Home Medications Medication Instructions Recorded Confirmed Type amlodipine 5 mg PO DAILY 06/26/18 06/26/18 History cyclobenzaprine 10 mg PO HS PRN 06/26/18 06/26/18 History fentanyl 1 patch TRANSDERMAL Q OTHER DAY 06/26/18 06/26/18 History gabapentin 600 mg PO BID 06/26/18 06/26/18 History meloxicam 0 mg PO DAILY 06/26/18 06/26/18 History omeprazole 20 mg PO BID 06/26/18 06/26/18 History pseudoephedrine HCl [Sudafed] 30 mg PO DAILY PRN 06/26/18 06/26/18 History venlafaxine [Effexor XR] 0 mg PO BID 06/26/18 06/26/18 History Patient History Medical History Depression GERD (gastroesophageal reflux disease) Chronic back pain Hypertension No significant past medical history Surgical History No significant past surgical history Social History Communication Ability: Effective Beliefs That Will Affect Care: None marital status: Current Living Situation: Spouse Other Information That Helps Us Care for You: No Feels Safe at Home: Yes Safety Concerns: Feels Safe At This Time Smoking Status: Unknown if ever smoked Hx Alcohol Use: No Hx Substance Use: No Review of Systems Constitutional: as per Subjective / HPI Eyes: no problem reported Ear, Nose, Mouth, Throat: no problem reported Respiratory: as per Subjective / HPI Cardiovascular: + chest pain; no palpitations Gastrointestinal: as per Subjective / HPI; no change in bowel habits, no blood in stools and no melena Genitourinary (Male): no problem reported Musculoskeletal: no problem reported Integumentary: no problem reported Psychiatric: no problem reported Physical Exam Vital Signs (Past 24 Hours): Last Vital Signs Temp 37.4 C 07/03/18 23:50 Pulse 89 07/03/18 23:50 Resp 18 07/03/18 23:50 BP 132/79 07/03/18 23:50 Pulse Ox 91 07/03/18 23:50 Constitutional: + obese tired Eyes: EOM intact bilaterally Respiratory: normal respiratory effort Auscultation: + diminished lung sounds (right base) Cardiovascular: Rate/Rhythm: regular rate and regular rhythm Chest (Breasts): Additional Comments: tender over right lower chest area Gastrointestinal (Abdomen): Inspection/Auscultation: normal bowel sounds Percussion/Palpation: + abdomen tender (RUQ and right flank) and abdomen soft; no guarding, abdomen not rigid and no hepatosplenomegaly Musculoskeletal: mild pedal edema Skin: no rashes, warm and dry Psychiatric: Orientation: oriented x 3 (drowsy) Results & Data Laboratory Results Abnormal lab results 07/04/18 07/04/18 Range/Units 05:18 05:18 WBC 11.77 H (4.8-10.8) K/uL RBC 3.83 L (4.7-6.1) M/uL Hgb 11.4 L (14.0-18.0) g/dL Hct 35.3 L (42-52) % Plt Count 503 H (130-400) K/uL Immature Gran # (Auto) 0.12 H (0.00-0.02) K/uL Neut # (Auto) 7.95 H (1.4-6.5) K/uL [place] # (Auto) 1.29 H (0.11-0.59) K/uL Eos # (Auto) 0.61 H (0-0.5) K/uL Carbon Dioxide 37 H (21-32) mmol/L Anion Gap 1.0 L (3-11) Calcium 8.4 L (8.5-10.1) mg/dl Albumin 2.1 L (3.4-5.0) gm/dl Globulin 5.1 H (2.5-4.0) gm/dl Albumin/Globulin Ratio 0.4 L (0.9-2) (1) Fever Fever type: unspecified Qualified Code(s): R50.9 - Fever, unspecified (2) Leukocytosis Leukocytosis type: unspecified Qualified Code(s): D72.829 - Elevated white blood cell count, unspecified
--- NOTE | 2018-07-04 11:12 | Fluoroscopy Report ---
FL sniff test CLINICAL HISTORY: elevated right hemidiaphragm COMPARISON STUDY: Chest CT 07/07/2018. FLUOROSCOPY TIME: 0.1 minutes. 69 fluoroscopic spot images submitted. FINDINGS: There is an elevated right hemidiaphragm. This is limited but symmetric movement compared t o the left hemidiaphragm. IMPRESSION: Limited but symmetric movement of the right hemidiaphragm in comparison to the left. Electronically signed by: Dandy Chawla M.D. 07/04/2018 11:10 AM
--- NOTE | 2018-07-04 11:22 | Family Medicine Progress Note ---
Date of Service July 04, 2018 Assessment & Plan (1) Right upper quadrant abdominal pain: Mr. Alvarez is a 67-year-old male with a history of hypertension, chronic back pain, GERD, depression who presents to the emergency department due to a 1 month history of gradually worsening right sided back pain, RUQ abdominal pain, cough and weakness. SEPSIS, fever and leukocytosis likely secondary to pneumonia with loculated pleural effusion/biliary source -WBC Downtrending, -Last temp elevation 48hrs ago. -Workup with possible MRCP/ERCP for atypical cholangitis based on Hx of and current RUQ pain, leukocytosis, fevers. Repeat RUQ US ordered (showed fatty liver, gallstones without cholecystitis and an obscured pancreas). GI consult placed- state MRCP will be done, continue IV abx, awaiting GI recs as well. -HIDA d/c as pt on fentanyl. -JELENA NEGATIVE for possible rheumatological source given chronic back pain, fever non responsive to abx -lyme Negative, procal unremarkable -peripheral smear shows no evidence of anaplasmosis, malaria. -Blood Cx x2-No growth -consult thoracic surgery for evaluation of loculated pleural effusion - sniff test recommended and showed symmetric elevation, thorascopy PENDING. -cough improving -Was treated with Zosyn (5doses), Vanc(stopped after MRSA neg resulted), Augmentin (5 doses), Levofloxacin IV 1 dose. -Resumed Zosyn since pulm loculation and continued fevers. -Xoponex nebs prn for SOB/wheeze -incentive spirometry. RUQ pain: -RETURNED especially when sitting up. -Initial concern of Possible cholangitis picture given leukocytosis, fever, and RUQ pain hx. -? sec to Pleural effusion but too small -? abdominal wall pain RUQ ultrasound (06/26) and repeat (07/03) showed no biliary duct dilation but stones were present with no evidence of cholecystitis. -Cancelled HIDA scan ordered due to pt being on fentanyl patch chronically. Gallbladder will not contract. Nausea for >1mth: -GI consult and work up as above. Lymphadenopathy on CT Scan (mediastinal) -likely sec to pulmonary process. follow. -f/u outpatient HTN - controlled -cont to hold amlodipine Chronic back pain -cont home cyclobenzaprine, fentanyl, gabapentin, meloxicam GERD -cont on pantoprazole Depression -cont home venlafaxine CODE STATUS: Full DVT prophylaxis: Lovenox 40 mg SQ daily Supervising Physician Co-Signing Physician Notes Resident Physician Supervision Note: I independently interviewed and examined the patient and verified the patiño history and physical, reviewed labs and image studies, discussed the case with the resident Dr. Campbell and agree with the findings and care plan. Subjective Pt states his symptoms are still relatively unchanged. Chronic nausea with emesis, abdominal pain and just generalized feeling of malaise and fatigue. Is currently NPO and states he would like to eat. Review of Systems All systems reviewed & are unremarkable except as noted in HPI & below Physical Exam Vital Signs (Past 24 Hours): Last Vital Signs Temp 37.4 C 07/03/18 23:50 Pulse 89 07/03/18 23:50 Resp 18 07/03/18 23:50 BP 132/79 07/03/18 23:50 Pulse Ox 91 07/03/18 23:50 General: Alert, oriented. HEENT: NC/AT, PERRLA, EOMI, oropharynx moist. Chest: Nontender to palpation. CV: RRR, Normal s1, s2. No murmurs appreciated Resp: Breath sounds clear bilaterally except at right base decreased breath sounds, no increased effort of breathing. No crackles/rhonchi/rales. Abdomen: BS+. Soft, tender to palpation in RUQ when sitting but not when laying down with diffuse abd tenderness, nondistended. No rebound or guarding. No organomegaly appreciated. Neg Mc[place] Extremities: No edema. Results & Data Laboratory Results Laboratory Results - last 24 hr 07/02/18 07/04/18 07/04/18 09:12 05:18 05:18 WBC 11.77 H RBC 3.83 L Hgb 11.4 L Hct 35.3 L MCV 92.2 MCH 29.8 MCHC 32.3 RDW Std Deviation 46.1 RDW Coeff of Netta 13.7 Plt Count 503 H MPV 9.6 Immature Gran % (Auto) 1.0 Neut % (Auto) 67.5 Lymph % (Auto) 15.0 [place] % (Auto) 11.0 Eos % (Auto) 5.2 Baso % (Auto) 0.3 Immature Gran # (Auto) 0.12 H Neut # (Auto) 7.95 H Lymph # (Auto) 1.77 [place] # (Auto) 1.29 H Eos # (Auto) 0.61 H Baso # (Auto) 0.03 Sodium 136 Potassium 4.0 Chloride 98 Carbon Dioxide 37 H Anion Gap 1.0 L BUN 14 Creatinine 0.87 Est Cr Clr Drug Dosing 95.7 Est GFR ( Amer) 104.2 Est GFR (Non-Af Amer) 89.9 BUN/Creatinine Ratio 15.8 Glucose 87 Calcium 8.4 L Total Bilirubin 0.4 AST 21 ALT 30 Alkaline Phosphatase 91 Total Protein 7.2 Albumin 2.1 L Globulin 5.1 H Albumin/Globulin Ratio 0.4 L JELENA Screen NEGATIVE Medications Administered Home Medications amlodipine 5 mg PO DAILY 06/26/18 [History Confirmed 06/26/18] cyclobenzaprine 10 mg PO HS PRN 06/26/18 [History Confirmed 06/26/18] fentanyl 1 patch TRANSDERMAL Q OTHER DAY 06/26/18 [History Confirmed 06/26/18] gabapentin 600 mg PO BID 06/26/18 [History Confirmed 06/26/18] meloxicam 0 mg PO DAILY 06/26/18 [History Confirmed 06/26/18] omeprazole 20 mg PO BID 06/26/18 [History Confirmed 06/26/18] pseudoephedrine HCl [Sudafed] 30 mg PO DAILY PRN 06/26/18 [History Confirmed 06/26/18] venlafaxine [Effexor XR] 0 mg PO BID 06/26/18 [History Confirmed 06/26/18] Active Medications Acetaminophen (Tylenol) 650 mg PO Q4H PRN PRN Reason: pain/fever Stop: 07/27/18 01:15 Last Admin: 07/03/18 07:39 Dose: 650 mg Documented by: Benzonatate (Tessalon Perle) 100 mg PO TID PRN PRN Reason: Cough Stop: 07/28/18 20:59 Cyclobenzaprine HCl (Flexeril) 10 mg PO HS PRN PRN Reason: Muscle Spasm Stop: 07/27/18 01:15 Last Admin: 06/27/18 21:56 Dose: 10 mg Documented by: Enoxaparin Sodium (Lovenox) 40 mg SQ Q24H [facility] Stop: 07/27/18 08:59 Last Admin: 07/04/18 08:16 Dose: 40 mg Documented by: Fentanyl (Duragesic) 100 mcg TD Q2D@0900 [facility] Stop: 07/12/18 08:59 Last Admin: 07/04/18 08:48 Dose: 100 mcg Documented by: Gabapentin (Neurontin) 600 mg PO BID [facility] Stop: 07/27/18 01:59 Last Admin: 07/04/18 08:16 Dose: 600 mg Documented by: Piperacillin Sod/Tazobactam (Sod 3.375 gm/ Dextrose) 115 mls @ 28.75 mls/hr IV Q8H [facility] Stop: 07/08/18 21:59 Last Infusion: 07/04/18 10:38 Dose: Infused Documented by: Levalbuterol HCl (Xopenex 0.63 Mg/3 Ml Neb) 0.63 mg NEB Q6R PRN PRN Reason: SOB or wheeze Stop: 07/27/18 01:59 Last Admin: 06/30/18 15:25 Dose: 0.63 mg Documented by: Meloxicam (Mobic) 7.5 mg PO [facility] Stop: 07/27/18 02:59 Last Admin: 07/03/18 21:44 Dose: 7.5 mg Documented by: Miscellaneous (Fentanyl Patch Check Placement) 1 ea N/A QS [facility] Stop: 07/27/18 07:59 Last Admin: 07/04/18 08:15 Dose: 1 ea Documented by: Miscellaneous (Fentanyl Patch Remove & Waste) 1 ea N/A Q2D@0859 [facility] Stop: 07/28/18 08:58 Last Admin: 07/04/18 08:48 Dose: 1 ea Documented by: Miscellaneous Information (Consult) 1 ea N/A UD PRN PRN Reason: Consult Stop: 07/31/18 15:04 Ondansetron HCl (Zofran) 4 mg IV Q4H PRN PRN Reason: Nausea Stop: 07/29/18 09:18 Last Admin: 07/04/18 03:05 Dose: 4 mg Documented by: Pantoprazole Sodium (Protonix) 40 mg PO [facility] Stop: 07/27/18 02:59 Last Admin: 07/03/18 21:44 Dose: 40 mg Documented by: Prochlorperazine (Compazine) 10 mg PO Q6H PRN PRN Reason: Nausea Stop: 04/09/19 15:12 Last Admin: 07/04/18 08:17 Dose: 10 mg Documented by: Sennosides (Senokot) 8.6 mg PO QAM [facility] Stop: 07/27/18 01:59 Last Admin: 07/04/18 08:17 Dose: 8.6 mg Documented by: Venlafaxine HCl (Effexor Extended Release) 37.5 mg PO BID [facility] Stop: 07/27/18 01:59 Last Admin: 07/04/18 08:17 Dose: 37.5 mg Documented by: Resident Activity Tracking Resident Involvement: Resident Care Provided Care Provided: Adult Hospital Medicine
--- NOTE | 2018-07-04 14:26 | Magnetic Resonance Report ---
MRCP CLINICAL HISTORY: fever, RUQ pain. exclude cholangitis COMPARISON STUDY: CT of the abdomen and pelvis June 26, 2018.] Ultrasound July 03, 2018. TECHNIQUE: Utilizing a 1.5 Ira magnet, multiplanar, multi echo imaging of the upper abdomen was per formed without IV contrast utilizing heavily T2 weighted pulsing sequences. FINDINGS: Moderate elevation of the right hemidiaphragm is noted. Moderate cardiomegaly is noted. Enl arged subcarinal lymph nodes are better depicted on CT of June 26, 2018. An index node measures appro ximately 2 cm in short axis diameter. A loculated small right pleural effusion has slightly decreased in size since prior exam. This effusion is likely complex. There is right lower lobe airspace opacit y. Fatty infiltration of the liver is noted. No hepatic lesions are identified on this unenhanced exa m. Small gallstones within the gallbladder noted. There is no adjacent infiltration. There is no bili tyler ductal dilatation. No common bile duct calculi are identified. The course and caliber of the main pancreatic duct is normal. The spleen, adrenal glands and kidneys are unremarkable on this unenhance d study. Caliber of visualized small and large bowel are normal. There is no abdominal lymphadenopath y. IMPRESSION: 1. Cholelithiasis. No evidence for acute cholecystitis on this exam. No biliary ductal dilatation. No choledocholithiasis. 2. Small loculated right pleural effusion, minimally decreased in size since CT of June 26, 2018. An empyema cannot be excluded. 3. Moderate elevation of the right hemidiaphragm. 4. Enlarged subcarinal lymph nodes which are indeterminate but may be reactive. Electronically signed by: Teo Paulino M.D. 07/04/2018 2:25 PM
--- NOTE | 2018-07-04 14:50 | XRay Report ---
XR chest 1V portable CLINICAL HISTORY: s/p thoracentesis COMPARISON STUDY: Chest radiograph July 01, 2018. FINDINGS: There is no pneumothorax postthoracentesis. Elevation of the right hemidiaphragm is noted. Right lower lung airspace opacity is noted. Cardiomediastinal silhouette is stable. IMPRESSION: 1. No pneumothorax following thoracentesis. 2. Elevation of the right hemidiaphragm with persistent right lower lung airspace opacity. Electronically signed by: Teo Paulino M.D. 07/04/2018 2:49 PM
[2018-07-04] MEDS: PANTOprazole 40 MG TAB PO SCH (21:20)
[2018-07-04] MEDS: MELOXICAM 7.5 MG TAB PO SCH (21:21)
[2018-07-05] MEDS: CHECK FENTANYL PATCH PLACEMENT SCH ×3 (00:15→16:02)
[2018-07-05] MEDS: PROCHLORPERAZINE MALEATE 10 MG TAB PO PRN ×3 (01:57→14:20)
[2018-07-05] MEDS: ONDANSETRON INJ 2 MG/ML 2 ML VIAL IV PRN ×3 (03:41→16:05)
[2018-07-05] MEDS: PIPERACILLIN/TAZOBACTAM 3.375 GM in DEXTROSE 5% 100 ML IV SCH ×2 (06:30→14:20)
[2018-07-05 07:00] LABS: Basophils # (auto) 0.05 K/uL (0-0.2); Basophils % (auto) 0.5 %; Eosinophils % (auto) 6.5 %; Hemoglobin 11.8 g/dL (14.0-18.0); Immature Granulocytes # (auto) 0.09 K/uL (0.00-0.02); Lymphocytes # (auto) 1.69 K/uL (1.2-3.4); Lymphocytes % (auto) 18.2 %; Mean Corpuscular Hgb Conc 33.7 g/dL (32-36); Mean Corpuscular Volume 91.6 fL (80-100); Mean Platelet Volume 9.3 fL (7.4-10.4); Monocytes # (auto) 0.86 K/uL (0.11-0.59); Monocytes % (auto) 9.3 %; Neutrophils % (auto) 64.5 %; Platelet Count 520 K/uL (130-400); RDW Coefficient of Variation 13.6 % (11.5-14.5); RDW Standard Deviation 45.1 fL (36.4-46.3); Red Blood Count 3.82 M/uL (4.7-6.1); White Blood Count 9.29 K/uL (4.8-10.8)
[2018-07-05 07:27] LABS: Albumin Level 2.1 gm/dl (3.4-5.0); BUN Creatinine Ratio 12.9 (10-20); Calcium 8.5 mg/dl (8.5-10.1); Creatinine Clr Calc Pharmacy 82.4 ml/min; Est GFR (African American) 89.4; Est GFR (Non-African American) 77.1; Potassium 3.9 mmol/L (3.5-5.1)
[2018-07-05 07:30] LABS: Albumin Globulin Ratio 0.4 (0.9-2); Bilirubin,Total 0.3 mg/dl (0.2-1); Globulin 5.2 gm/dl (2.5-4.0); Total Protein 7.3 gm/dl (6.4-8.2)
--- NOTE | 2018-07-05 07:39 | XRay Report ---
XR chest 1V portable CLINICAL HISTORY: effusion COMPARISON STUDY: Chest radiograph 08/04/2018. FINDINGS: Elevation of the right hemidiaphragm is unchanged. Right basilar opacity is noted. There is no pneumothorax. There may be a small right pleural effusion. No evidence for pulmonary edema. Cardi omediastinal silhouette is unremarkable. IMPRESSION: 1. No pneumothorax. 2. Moderate elevation of the right hemidiaphragm with a suspected small right pleural effusion and ri ght basilar opacity. Electronically signed by: Teo Paulino M.D. 07/05/2018 7:38 AM
[2018-07-05] MEDS: SENNA 8.6 MG TAB PO SCH (08:10)
[2018-07-05] MEDS: GABAPENTIN 600 MG TAB PO SCH (08:10)
[2018-07-05] MEDS: VENLAFAXINE HCL XR 37.5 MG CAPXR PO SCH (08:11)
[2018-07-05] MEDS: ENOXAPARIN INJ 40 MG/0.4 ML SYR SQ SCH (08:11)
[2018-07-05] MEDS ORDERED: OXYCODONE HCL IR 5 MG TAB (IMMEDIATE RELEASE) PO STA (08:29)
--- NOTE | 2018-07-05 09:52 | Family Medicine Progress Note ---
Date of Service July 05, 2018 Assessment & Plan (1) Right upper quadrant abdominal pain: Mr. Alvarez is a 67-year-old male with a history of hypertension, chronic back pain, GERD, depression who presents to the emergency department due to a 1 month history of gradually worsening right sided back pain, RUQ abdominal pain, cough and weakness. SEPSIS, fever and leukocytosis likely secondary to pneumonia with loculated pleural effusion/biliary source -WBC Downtrending, -Last temp elevation 48hrs ago. -Workup with MRCP --NEGATIVE for atypical cholangitis. Loculated fluid on right slightly decreased from previous imaging. - GI consult placed- MRCP as above, continue IV abx. Awaiting further GI recs. -HIDA d/c as pt on fentanyl. -JELENA NEGATIVE for possible rheumatological source given chronic back pain, fever non responsive to abx -lyme Negative, procal unremarkable -peripheral smear shows no evidence of anaplasmosis, malaria. -Blood Cx x2-No growth -consult thoracic surgery for evaluation of loculated pleural effusion - sniff test recommended and showed symmetric elevation, thorascopy results of pleural fluid sampled PENDING (fungal smear NEG, fungal Cx, aerobic, anaerobic Cx preliminary NGTD after talking to microbiology). -cough improving -Was treated with Zosyn (5doses), Vanc(stopped after MRSA neg resulted), Augmentin (5 doses), Levofloxacin IV 1 dose. -Resumed Zosyn since pulm loculation and continued fevers- continue Zosyn. -Xoponex nebs prn for SOB/wheeze -incentive spirometry. -On fentanyl patch, additional oxycodone 5mg one time dose given for 7/10 pain today RUQ pain: -RETURNED especially when sitting up. -Initial concern of Possible cholangitis picture given leukocytosis, fever, and RUQ pain hx- MRCP EXCLUDED this -? sec to Pleural effusion but too small -? abdominal wall pain RUQ ultrasound (06/26) and repeat (07/03) showed no biliary duct dilation but stones were present with no evidence of cholecystitis. -Cancelled HIDA scan ordered due to pt being on fentanyl patch chronically. Gallbladder will not contract. Nausea for >1mth: -GI consult and work up as above. Lymphadenopathy on CT Scan (mediastinal) -likely sec to pulmonary process. follow. -f/u outpatient HTN - controlled -cont to hold amlodipine Chronic back pain -cont home cyclobenzaprine, fentanyl, gabapentin, meloxicam GERD -cont on pantoprazole Depression -cont home venlafaxine CODE STATUS: Full DVT prophylaxis: Lovenox 40 mg SQ daily Subjective Pt states that he has 7/10 pain today and he is nauseated without episodes of emesis. Denies chest pain, SOB diarrhea or constipation. Review of Systems All systems reviewed & are unremarkable except as noted in HPI & below Physical Exam Vital Signs (Past 24 Hours): Last Vital Signs Temp 36.7 C 07/05/18 08:33 Pulse 109 H 07/05/18 08:33 Resp 18 07/05/18 08:33 BP 131/68 07/05/18 08:33 Pulse Ox 93 07/05/18 08:33 General: Alert, oriented. HEENT: NC/AT, PERRLA, EOMI, oropharynx moist. Chest: Nontender to palpation. CV: RRR, Normal s1, s2. No murmurs appreciated Resp: No increased work of brathing, Clear breath sounds on left, coarse breath sounds in upper and lower right lobe. Abdomen: Soft, tender to palpation in RUQ when sitting but not when laying down. No rebound or guarding. No organomegaly appreciated. Extremities: No edema. Results & Data Laboratory Results Laboratory Results - last 24 hr 07/05/18 07/05/18 06:46 06:46 WBC 9.29 RBC 3.82 L Hgb 11.8 L Hct 35.0 L MCV 91.6 MCH 30.9 MCHC 33.7 RDW Std Deviation 45.1 RDW Coeff of Netta 13.6 Plt Count 520 H MPV 9.3 Immature Gran % (Auto) 1.0 Neut % (Auto) 64.5 Lymph % (Auto) 18.2 [place] % (Auto) 9.3 Eos % (Auto) 6.5 Baso % (Auto) 0.5 Immature Gran # (Auto) 0.09 H Neut # (Auto) 6.00 Lymph # (Auto) 1.69 [place] # (Auto) 0.86 H Eos # (Auto) 0.60 H Baso # (Auto) 0.05 Sodium 135 L Potassium 3.9 Chloride 97 L Carbon Dioxide 33 H Anion Gap 5.0 BUN 13 Creatinine 1.01 Est Cr Clr Drug Dosing 82.4 Est GFR ( Amer) 89.4 Est GFR (Non-Af Amer) 77.1 BUN/Creatinine Ratio 12.9 Glucose 117 H Calcium 8.5 Total Bilirubin 0.3 AST 24 ALT 30 Alkaline Phosphatase 88 Total Protein 7.3 Albumin 2.1 L Globulin 5.2 H Albumin/Globulin Ratio 0.4 L Medications Administered Home Medications amlodipine 5 mg PO DAILY 06/26/18 [History Confirmed 06/26/18] cyclobenzaprine 10 mg PO HS PRN 06/26/18 [History Confirmed 06/26/18] fentanyl 1 patch TRANSDERMAL Q OTHER DAY 06/26/18 [History Confirmed 06/26/18] gabapentin 600 mg PO BID 06/26/18 [History Confirmed 06/26/18] meloxicam 0 mg PO DAILY 06/26/18 [History Confirmed 06/26/18] omeprazole 20 mg PO BID 06/26/18 [History Confirmed 06/26/18] pseudoephedrine HCl [Sudafed] 30 mg PO DAILY PRN 06/26/18 [History Confirmed 06/26/18] venlafaxine [Effexor XR] 0 mg PO BID 06/26/18 [History Confirmed 06/26/18] Active Medications Acetaminophen (Tylenol) 650 mg PO Q4H PRN PRN Reason: pain/fever Stop: 07/27/18 01:15 Last Admin: 07/03/18 07:39 Dose: 650 mg Documented by: Benzonatate (Tessalon Perle) 100 mg PO TID PRN PRN Reason: Cough Stop: 07/28/18 20:59 Cyclobenzaprine HCl (Flexeril) 10 mg PO HS PRN PRN Reason: Muscle Spasm Stop: 07/27/18 01:15 Last Admin: 06/27/18 21:56 Dose: 10 mg Documented by: Enoxaparin Sodium (Lovenox) 40 mg SQ Q24H [facility] Stop: 07/27/18 08:59 Last Admin: 07/05/18 08:11 Dose: 40 mg Documented by: Fentanyl (Duragesic) 100 mcg TD Q2D@0900 [facility] Stop: 07/12/18 08:59 Last Admin: 07/04/18 08:48 Dose: 100 mcg Documented by: Gabapentin (Neurontin) 600 mg PO BID [facility] Stop: 07/27/18 01:59 Last Admin: 07/05/18 08:10 Dose: 600 mg Documented by: Piperacillin Sod/Tazobactam (Sod 3.375 gm/ Dextrose) 115 mls @ 28.75 mls/hr IV Q8H [facility]; Protocol Stop: 07/08/18 21:59 Last Admin: 07/05/18 06:30 Dose: 28.8 mls/hr Documented by: Levalbuterol HCl (Xopenex 0.63 Mg/3 Ml Neb) 0.63 mg NEB Q6R PRN PRN Reason: SOB or wheeze Stop: 07/27/18 01:59 Last Admin: 06/30/18 15:25 Dose: 0.63 mg Documented by: Meloxicam (Mobic) 7.5 mg PO [facility] Stop: 07/27/18 02:59 Last Admin: 07/04/18 21:21 Dose: 7.5 mg Documented by: Miscellaneous (Fentanyl Patch Check Placement) 1 ea N/A QS [facility] Stop: 07/27/18 07:59 Last Admin: 07/05/18 08:12 Dose: 1 ea Documented by: Miscellaneous (Fentanyl Patch Remove & Waste) 1 ea N/A Q2D@0859 [facility] Stop: 07/28/18 08:58 Last Admin: 07/04/18 08:48 Dose: 1 ea Documented by: Miscellaneous Information (Consult) 1 ea N/A UD PRN PRN Reason: Consult Stop: 07/31/18 15:04 Ondansetron HCl (Zofran) 4 mg IV Q4H PRN PRN Reason: Nausea Stop: 07/29/18 09:18 Last Admin: 07/05/18 03:41 Dose: 4 mg Documented by: Pantoprazole Sodium (Protonix) 40 mg PO [facility] Stop: 07/27/18 02:59 Last Admin: 07/04/18 21:20 Dose: 40 mg Documented by: Prochlorperazine (Compazine) 10 mg PO Q6H PRN PRN Reason: Nausea Stop: 07/30/18 15:12 Last Admin: 07/05/18 08:08 Dose: 10 mg Documented by: [facility]ennosides ([facility]) [facility] Stop: 07/27/18 01:59 Last Admin: 07/05/18 08:10 Dose: 8.6 mg Documented by: Venlafaxine HCl (Effexor Extended Release) 37.5 mg PO BID [facility] Stop: 07/27/18 01:59 Last Admin: 07/05/18 08:11 Dose: 37.5 mg Documented by: Resident Activity Tracking Resident Involvement: Resident Care Provided Care Provided: Adult Hospital Medicine
[2018-07-05] MEDS: ACETAMINOPHEN 325 MG TAB PO PRN (12:44)
--- NOTE | 2018-07-05 17:34 | Discharge Summary ---
Date of Service July 05, 2018 Admission HPI Per Admitting Provider Mr. Alvarez is a 67-year-old male with a history of hypertension, chronic back pain, GERD, and depression who presents to the emergency department due worsening right sided back pain, cough and weakness. He states the pain began 1 month ago, over the right side of his abdomen, around to his back, and has been gradually worsening over the past month. He states the pain is worst when he bends over, or if he takes a deep breath. He also endorses a cough, which she states he has had for "a while." The cough is productive of sputum, however no blood. He denies any fever or chills, but states he has felt weak and tired, which was worse today. He also endorses decreased appetite, associated with nausea, but no vomiting. He denies any urinary symptoms, and states that his bowel movements have been normal for him, once every 3 days, without the presence of blood. He denies any leg swelling, history of blood clots in his legs or lungs, and states that he has had no recent long-haul flights or travel. He denies a history of [place], and has not seen a junior assistant manager in the past. He also denies any sick contacts. Of note, he is a former smoker. He quit at the age of 22, and smoked a pack a day for a few years. He denies use of alcohol or any recreational drugs. He gets his medical care through the [facility]. Admission Exam Per Admitting Provider Constitutional: WD/WN, vitals as above + well hydrated and cooperative Laying on left side, as he states this is most comfortable position for him ENMT: external ear and nose normal, oropharynx normal Respiratory: normal respiratory effort; no respiratory distress Auscultation: + diminished lung sounds (Bilaterally); no crackles, no rales and no wheezes Wearing 2 L of oxygen via nasal cannula Cardiovascular: RRR, no murmur, no edema Extremities: normal capillary refill; no calf tenderness and no pedal edema Gastrointestinal (Abdomen): Percussion/Palpation: abdomen soft; abdomen nontender, no guarding and abdomen not rigid Musculoskeletal: No flank tenderness, no tenderness to palpation of back Skin: no rashes, warm and dry Psychiatric: A+Ox3, euthymic affect Principal Diagnosis Pneumonia, Pleural Effusion, Hypoxia Discharge Exam General: Alert, oriented. HEENT: NC/AT, PERRLA, EOMI, oropharynx moist. Chest: Nontender to palpation. CV: RRR, Normal s1, s2. No murmurs appreciated Resp: No increased work of brathing, Clear breath sounds on left, coarse breath sounds in upper and lower right lobe. Abdomen: Soft, tender to palpation in RUQ when sitting but not when laying down. No rebound or guarding. No organomegaly appreciated. Extremities: No edema. Skin: Bandage clean over right lower back. Discharge Data Allergies Allergy/AdvReac Type Severity Reaction Status Date / Time bee venom protein (honey bee) Allergy Intermediate EXCESSIVE Verified 06/26/18 19:50 SWELLING AT SITE sulfamethoxazole Allergy Intermediate TONGUE Verified 06/26/18 19:50 SWELLS, WHITE BLISTERS IN MOUTH. trimethoprim Allergy Intermediate TONGUE Verified 06/26/18 19:50 SWELLS, WHITE BLISTERS IN MOUTH. adhesive Allergy Mild SKIN Verified 06/26/18 19:50 IRRITATION Bactrim Allergy Unknown . Unverified 07/23/15 11:07 morphine AdvReac Intermediate PROJECTILE Verified 07/02/18 12:02 VOMITING Consultations 06/26/18 22:47 ED Decision to Admit Stat 06/27/18 17:40 Consult Pulmonology Routine 07/03/18 10:41 Consult Thoracic Surgery Routine 07/03/18 18:28 Consult Gastroenterology Routine Ordered Studies 06/26/18 19:10 US gallbladder Stat 06/26/18 21:09 CT abd pelvis IV con only Stat 06/27/18 13:15 CT chest wo con Routine 06/28/18 09:25 US point of care ultrasound Routine 07/03/18 08:39 US abdomen limited Routine 07/04/18 10:33 MR MRCP Urgent 07/04/18 11:00 FL sniff test Routine Hospital Course (1) Right upper quadrant abdominal pain: Mr. Alvarez is a 67-year-old male with a history of hypertension, chronic back pain, GERD, depression who presents to the emergency department due to a 1 month history of gradually worsening right sided back pain, RUQ abdominal pain, cough and weakness. SEPSIS, fever and leukocytosis likely secondary to pneumonia with loculated pleural effusion -WBC Downtrending from admission--14.26 to 11.42 on discharge. -Last temp elevation 3 days prior to discharge. -Workup with MRCP for possible biliary source for spiking fevers --NEGATIVE for atypical cholangitis. Showed loculated fluid on right slightly decreased from previous imaging. -HIDA was not done as pt on fentanyl and would prevent contraction of gallbladder. -JELENA NEGATIVE for possible rheumatological source of spiking fevers given chronic back pain, fever non responsive to abx -lyme Negative, procal unremarkable -peripheral smear showed no evidence of anaplasmosis, malaria. -Blood Cx x2-No growth. -consult was placed to thoracic surgery for evaluation of loculated pleural ef fusion - sniff test recommended and showed symmetric elevation, thorascopy results of pleural fluid sampled PENDING upon discharge (fungal smear NEG, fungal Cx, aerobic, anaerobic Cx preliminary NGTD after talking to microbiology). Will follow up with final results after discharge. -cough improving throughout stay. Discharged with Declan Sharma. -Was treated with Zosyn (5doses), Vanc(stopped after MRSA neg resulted), Augmentin (5 doses), Levofloxacin IV 1 dose. -Zosyn was resumed for 4 days before discharge due to having continued fevers. Was discharged with Augmentin for 5 days. -received Xoponex nebs prn for SOB/wheeze while hospitalized. -was encouraged to use incentive spirometry. RUQ pain: -RETURNED especially when sitting up. -Initial concern of Possible cholangitis picture given leukocytosis, fever, and RUQ pain hx- MRCP EXCLUDED this Thought possibly secondary to Pleural effusion but too small Possibly abdominal wall pain RUQ ultrasound (06/26) and repeat (07/03) showed no biliary duct dilation but stones were present with no evidence of cholecystitis. -Cancelled HIDA scan ordered due to pt being on fentanyl patch chronically. Gallbladder will not contract. Nausea for >1mth: -GI consult and work up as above. Lymphadenopathy on CT Scan -Abdominal/Pelvic CT from 06/26/17 showed: "Enlarged paratracheal and subcarinal lymph nodes measure up to 3.4 x 2.4 cm, progressed from comparison." -Chest CT showed: "Enlarged subcarinal node measures 3.6 x 2.5 cm." - further outpatient follow up. HTN - controlled. Amlodipine was held. Chronic back pain - home cyclobenzaprine, fentanyl, gabapentin, meloxicam were continued. GERD -pantoprazole was continued. Depression -home venlafaxine was continued. Total Time Total Time Spent Total Time Spent (In Minutes): 60 Discharge Plan Discharge Items Patient Disposition: Home - Self-Care Reason For Visit: PNEUMONIA, PLEURAL EFFUSION, HYPOXIA Discharge Diagnosis: Pneumonia, Pleural Effusion Discharge Goals: Decrease discomfort and Improve disease control Activity: Per 'Additional Instructions' section Non-emergency contact: Primary Care Provider Call non-emergency contact if: your symptoms worsen, your pain is worsening and you have a fever Follow-up/Referrals: Jayy Hodges M.D. [Primary Care Provider] - (office will contact you with a follow up appointment date and time) Diet: Regular Addtl Provider Instructions: You were admitted because you had sepsis related to a right lung pneumonia with a loculated effusion or infected fluid around it. You were treated with antibiotics, currently IV Zosyn and a procedure called a thoracoscopy was done to help break up the loculation and take a sample for testing to find out the cause and help direct treatment. A sniff test done also showed no problems with the MOVEMENT of your diaphragm. You seemed to improve after the thoracoscopy in that you have not had a fever for 3 days. Additional testing showed that you have some gallstones without infection of your gallbladder. You also tested negative for Lyme and there was no indication of infection with anaplasmosis or malaria given your recurrent fevers. It was noted on CT scan that you have some enlarged lymph nodes. Though possibly enlarged because of a reaction to you having an infectious process, there could also be other causes. Please follow up with your primary care provider. You are being discharged with an additional 5 days of antibiotics called Augmentin. Please take as directed. You are also being discharged with Tessalon Pearles to help with your cough. Please take as directed. Please schedule an appointment with your primary care provider for close followup in the next few days after discharge. Please go directly to the nearest emergency room should you develop worsening of your symptoms, your fever returns or you develop new concerning symptoms. Prescriptions: New benzonatate 100 mg capsule 100 mg PO TID PRN (Reason: cough) 7 Days Qty: 21 RF: 0 amoxicillin-pot clavulanate [Augmentin] 875-125 mg tablet 1 tab PO BID 5 Days Qty: 10 RF: 0 Continued cyclobenzaprine 10 mg Tablet 10 mg PO HS PRN (Reason: Muscle Spasm) RF: 0 venlafaxine [Effexor XR] 37.5 mg Capsule,Extended Release 24hr PO BID RF: 0 gabapentin 600 mg Tablet 600 mg PO BID RF: 0 amlodipine 5 mg Tablet 5 mg PO DAILY RF: 0 meloxicam 7.5 mg Tablet PO DAILY RF: 0 fentanyl 100 mcg/hr Patch 72 Hour 1 patch TRANSDERMAL Q OTHER DAY RF: 0 omeprazole 20 mg Capsule,Delayed Release(Dr/Ec) 20 mg PO BID RF: 0 pseudoephedrine HCl [Sudafed] 30 mg Tablet 30 mg PO DAILY PRN (Reason: Congestion) RF: 0 Stand-Alone Forms: Call Back Authorization, [facility]/Other Patient Handouts: Pneumonia Discharge Orders: Discharge Order (Routine); Ordered 07/05/18 Ordered By: Katiuska Campbell Admission Data Admit Date/Time: 06/27/18 00:31 Attending Provider: Candy Michael Admit Provider: Carmen Piña Primary Care Provider: Jayy Hodges Other Providers: Marlon Young ; Kayla Ramos ; Maverick Zhao ; Oliver Wade Service: Medical Other Interventions: Discharge Summary Assessment (RN) Last Done: 07/05/18 16:34 DC Date/Time DO NOT enter until pt leaves facility: 07/05/18 19:00 Supervising Physician Co-Signing Physician Notes Resident Physician Supervision Note: I independently interviewed and examined the patient and verified the patiño history and physical, reviewed labs and image studies, discussed the case with the resident Dr. Campbell and agree with the findings and care plan. Time spent in discharge 40 min
--- NOTE | 2018-07-05 19:53 | Operative Report ---
DATE OF OPERATION: 07/04/2018 PROCEDURE: Ultrasound-guided right thoracentesis. SURGEON: Maverick Zhao MD CLINICAL TECHNOLOGIST: ROSAMARIA Shetty. ANESTHESIA: Local. SPECIFICS OF PROCEDURE: With the patient in upright position, his back was inspected. He has very little fluid, but we are concerned about the fever spike. We want to make sure he does not have an empyema, which would necessitate a more definitive drainage. On the afternoon of 07/04/2018, the patient in a seated position at his bedside. I found a pocket of fluid, although it appeared to be fairly complicated down the diaphragmatic gutter posteriorly on the right side. This was marked and the patient was prepped and draped in the usual sterile fashion. Once after appropriate timeout had been called, a 25 gauge needle, 1% Xylocaine was used to anesthetize the skin and subcutaneous tissues pretty far down in the posterior chest. I went right above the rib after anesthetizing it. I placed a large bore needle and got some yellowish fluid back. Guidewire was inserted and needle removed. Dilator was slid over the guidewire to enlarge the insertion site and removed. A triple lumen catheter slid into about 15 cm. I ended up draining about 20-30 mL of a tabares fluid back. I could not get any more and I removed the catheter with really no bleeding, put an antimicrobial dressing on. An x-ray showed no evidence of pneumothorax. We had very little fluid, although we will see what the culture shows. The patient does have lymphadenopathy in the mediastinum and would be a candidate for a biopsy. The patient has an elevated right hemidiaphragm, so we did a SNIFF test. It shows the diaphragm is actually functioning, although appears to be a bit hypodynamic. At any rate, I felt that we would drain him at the bedside, although he did not have much fluid. We were really not able to drain much fluid, but we did send them off to the lab. It is still possible we would offer him more invasive intervention if his fevers do not stop. I attest to the content of the Intraoperative Record and any orders documented therein. Any exception s are noted below.
--- NOTE | 2018-07-05 20:14 | Progress Note ---
DATE: 07/05/2018 Mr. Avlarez is seen today. He is on room air now. His hypoxia is definitely improved. We performed a thoracentesis and got some fluid back yesterday and sent it off, and the Gram stain and cultures are negative to date. In addition, the patient had some mediastinal adenopathy. As he looks better, he is being discharged today. I will see him back in the office in 2 weeks and we will discuss his lymphadenopathy. I may offer him an endobronchial ultrasound or perhaps even a mediastinoscopy. We will discuss this in the office.
== END 2018-07-05 19:00 | disposition home or self-care (01) | DRG 871 ==
LOC: ED 18:52 → SUATTDRO 06-27 00:31 → 2N 06-27 00:31 → 4E 07-04 22:10

== ENCOUNTER 2018-09-08 17:03 | Inpatient (IN) ==
--- OUTSIDE RECORDS SUMMARY | 2018-09-08 17:05 | External Medical Summary | Continuity of Care Document ---
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) Lymphadenopathy, mediastinal (785.6) (R59.0) Allergies and Adverse Reactions Adhesive Tape TAPE (Allergy) Bactrim (Allergy) morphine (Allergy) Bee sting (Allergy) Medications Norvasc 5 MG Oral Tablet Refills: 0 Duragesic-12 12 MCG/HR Transdermal Patch 72 Hour Refills: 0 Effexor XR 75 MG Oral Capsule Extended Release 24 Hour Refills: 0 Sudafed TABS Refills: 0 Meloxicam TABS Refills: 0 PriLOSEC 40 MG CPDR Refills: 0 Gabapentin TABS Refills: 0 Flexeril TABS Refills: [address] (Chest) Thorax w/o Contrast Date: 23-Jul-2018 History of Biopsy Lymph Node Status: Com pleted History of ankle reconstruction Status: Completed History of carpal tunnel surgery Status: Completed Immunizations Immunizations not documented Family History Mother Family history of hypertension (V17.49) (Z82.49) Status: Act marline Family history of malignant neoplasm of breast (V16.3) (Z80. 3) Status: Active Grandmother Family history of malignant neoplasm of colon (V16.0) (Z80.0 ) Status: Active Social History - Smoking Status Former smoker Plan of Treatment Planned Observations Planned Goals not documented Results No Known Results Results not documented Vital Signs 19-Aug-2018 11:06 O2 Saturation 91 % Comments: Source: RA Heart Rate 86 /min Respiration 18 /min Weight 204.2 lb Height 63 in BSA Calculated 1.95 m2 BMI Calculated 36.17 kg/m2 Encounters Appointment; Maverick Zhao M.D. 19-Aug-2018 10:55 Encounter Diagnosis: Problem not documented Appointment; Chico Colbert PA-C 23-Jul-2018 11:30 Encounter Diagnosis: Problem not documented
[2018-09-08] MEDS ORDERED: ONDANSETRON INJ 2 MG/ML 2 ML VIAL IV STA (17:48)
[2018-09-08 17:59] LABS: Basophils # (auto) 0.01 K/uL (0-0.2); Basophils % (auto) 0.1 %; Hematocrit (blood only) 40.4 % (42-52); Hemoglobin 12.8 g/dL (14.0-18.0); Immature Granulocytes # (auto) 0.12 K/uL (0.00-0.02); Immature Granulocytes % (auto) 1.2 %; Lymphocytes # (auto) 0.91 K/uL (1.2-3.4); Mean Corpuscular Hgb Conc 31.7 g/dL (32-36); Mean Corpuscular Volume 91.8 fL (80-100); Mean Platelet Volume 9.6 fL (7.4-10.4); Monocytes # (auto) 0.41 K/uL (0.11-0.59); Monocytes % (auto) 4.1 %; Neutrophils # (auto) 8.61 K/uL (1.4-6.5); Neutrophils % (auto) 85.6 %; Platelet Count 246 K/uL (130-400); RDW Coefficient of Variation 15.2 % (11.5-14.5); RDW Standard Deviation 51.2 fL (36.4-46.3); White Blood Count 10.06 K/uL (4.8-10.8)
[2018-09-08] MEDS ORDERED: SODIUM CHLORIDE 0.9% 1000ML 1,000 ML IV SCH (18:00)
[2018-09-08 18:07] LABS: Albumin Level 3.8 gm/dl (3.4-5.0); BUN Creatinine Ratio 14.1 (10-20); Calcium 8.4 mg/dl (8.5-10.1); Creatinine Clr Calc Pharmacy 62.5 ml/min; Est GFR (African American) 64.8; Est GFR (Non-African American) 55.9; Magnesium 1.8 mg/dl (1.8-2.4); Potassium 4.4 mmol/L (3.5-5.1)
[2018-09-08 18:18] LABS: iSTAT Creatinine 1.1 mg/dl (0.6-1.3); iSTAT Hemoglobin 12.9 g/dl (14.0-18.0); iSTAT Ionized Calcium 1.12 mmol/l (1.12-1.32); iSTAT Potassium 4.8 mEq/L (3.3-5.0)
--- NOTE | 2018-09-08 18:20 | XRay Report ---
XR chest 1V portable HISTORY: Shortness of breath. weakness COMPARISON: Chest 07/05/2018. FINDINGS: Mild elevation the right hemidiaphragm appears to be chronic. No pleural effusions. No pneu mothorax. The heart remains mildly enlarged. No evidence for pulmonary edema. No focal lung consolida tions to suggest pneumonia. Low lung volumes are again noted. IMPRESSION: No significant change compared to the prior study. No acute process. Electronically signed by: Dandy Chawla M.D. 09/08/2018 6:18 PM
[2018-09-08 18:24] LABS: Albumin Globulin Ratio 0.9 (0.9-2); Bilirubin,Total 0.5 mg/dl (0.2-1); Globulin 4.2 gm/dl (2.5-4.0); Troponin I 0.118 ng/ml (0-0.045)
[2018-09-08] MEDS ORDERED: OPTIRAY 320 125ml IV PRN (18:43)
--- NOTE | 2018-09-08 19:04 | CT Scan Report ---
HEAD & NECK CTA HISTORY: headache, confusion TECHNIQUE: Multiaxial CT images of the head were performed both before and after the intravenous admi nistration of contrast to evaluate the major cerebral vessels. Multiaxial CT images of the neck were also performed following the intravenous administration of contrast to evaluate the major cervical ve ssels. Maximum intensity projection images were also obtained. A dose lowering technique was utilized adhering to the principles of ALARA. COMPARISON: None. FINDINGS: There is no mass, hematoma, midline shift, or acute infarct. Visualized intracranial internal carotid arteries, distal vertebral arteries, and basilar artery are widely patent. There is no significant s tenosis, occlusion, or aneurysm seen within the bilateral ACAs, MCAs, or psychiatric mental health nurse. The aortic arch and proximal great vessels are widely patent. There is no significant stenosis, occ lusion, or dissection identified within the bilateral common carotid, internal carotid, or vertebral arteries. Tortuous bilateral internal carotid arteries. Postoperative changes within the mandible. IMPRESSION: 1. No significant stenosis, occlusion, or aneurysm within the [place]. 2. No significant stenosis, occlusion, or dissection identified within the carotid or vertebral arter ies. 3. No acute intracranial abnormality. Electronically signed by: Dandy Chawla M.D. 09/08/2018 7:02 PM
--- NOTE | 2018-09-08 19:04 | CT Scan Report ---
HEAD & NECK CTA HISTORY: headache, confusion TECHNIQUE: Multiaxial CT images of the head were performed both before and after the intravenous admi nistration of contrast to evaluate the major cerebral vessels. Multiaxial CT images of the neck were also performed following the intravenous administration of contrast to evaluate the major cervical ve ssels. Maximum intensity projection images were also obtained. A dose lowering technique was utilized adhering to the principles of ALARA. COMPARISON: None. FINDINGS: There is no mass, hematoma, midline shift, or acute infarct. Visualized intracranial internal carotid arteries, distal vertebral arteries, and basilar artery are widely patent. There is no significant s tenosis, occlusion, or aneurysm seen within the bilateral ACAs, MCAs, or scale model maker. The aortic arch and proximal great vessels are widely patent. There is no significant stenosis, occ lusion, or dissection identified within the bilateral common carotid, internal carotid, or vertebral arteries. Tortuous bilateral internal carotid arteries. Postoperative changes within the mandible. IMPRESSION: 1. No significant stenosis, occlusion, or aneurysm within the [place]. 2. No significant stenosis, occlusion, or dissection identified within the carotid or vertebral arter ies. 3. No acute intracranial abnormality. Electronically signed by: Dandy Chawla M.D. 09/08/2018 7:02 PM
--- NOTE | 2018-09-08 19:16 | CT Scan Report ---
CHEST CTA for PULMONARY ARTERIES CT DOSE: HISTORY: PE-hypoxia, elevated troponin TECHNIQUE: Multiaxial CT images of the chest were performed following the intravenous administration of contrast to evaluate the pulmonary arteries. Maximal intensity projection images were also obtaine d. A dose lowering technique was utilized adhering to the principles of ALARA. COMPARISON STUDY: Chest CT 08/07/2018. FINDINGS: Old, healed right-sided rib fractures. A 5 mm gallstone is identified. Hepatic steatosis. C hronic elevation of the right hemidiaphragm. Questionable thickening of the gallbladder wall. The vis ualized adrenal glands and spleen are unremarkable. Trace right pleural effusion has significantly im proved. No mediastinal or hilar lymphadenopathy. Normal esophagus. Manubrial hemangioma remains uncha nged. Patchy and linear densities at the right lung base are again noted. This favors atelectasis. No pneumothorax. Stable 5 mm nodule within the lingula on image 149 and a 5 mm nodule within the left l ower lobe on image 127. These demonstrate greater than 2 year stability and are therefore considered to be benign. No pneumothorax. The central airways are patent. Normal caliber thoracic aorta. No evid ence for dissection. No filling defects within the pulmonary suggest pulmonary embolus. IMPRESSION: 1. No evidence for pulmonary blood. 2. Cholelithiasis. There is questionable thickening of the gallbladder wall. If the patient is compla ining of right upper quadrant pain then consider follow-up ultrasound for further evaluation and to e xclude a developing acute cholecystitis. 3. Chronic elevation of the right hemidiaphragm with right basilar densities. This favors atelectasis . A pneumonia could also have a similar appearance. 4. Trace right pleural effusion has decreased in size. Electronically signed by: Dandy Chawla M.D. 09/08/2018 7:14 PM
[2018-09-08] MEDS ORDERED: PIPERACILL/TAZOBAC CONSULT ACTIVE PRN ×2 (19:18→23:14)
[2018-09-08] MEDS ORDERED: PIPERACILLIN/TAZOBACTAM 4.5 GM/120 ML BAG IV ONE (19:18)
[2018-09-08] MEDS ORDERED: VANCOMYCIN HCL 1,750 MG in SODIUM CHLORIDE 0.9% 500 ML IV ONE (19:18)
[2018-09-08] MEDS ORDERED: VANCOMYCIN CONSULT ACTIVE PRN (19:18)
--- NOTE | 2018-09-08 19:22 | Emergency Department Note ---
Entered by Jackeline Larry acting as a scribe for Jayy Correa MD ED Provider Note CHIEF COMPLAINT: Vomiting HISTORY OF PRESENT ILLNESS: The patient is a 68 year old male who presents to the Emergency Room with complaints of vomiting that began the night prior to arrival. The patient states that when he vomits it relieves his headaches. The patient denies a headache upon arrival. Per , the patient had slurred speech, confusion, and near syncope. Per , the patient has needed assistance getting in and out of the vehicle. The patient denies ant chest pain, numbness or tingling, or neck pain. The patient denies being diagnosed with migraines but states that he does get them a couple times a month. The patient denies smoking tobacco.Pt denies LOC, fevers, chills, diaphoresis, visual changes, neck pain, chest pain, breathing difficulties, abdominal pain, back pain, melena, hematochezia, urinary symptoms, numbness, lymphadenopathy, rash, or other complaints. REVIEW OF SYSTEMS: See HPI for pertinent positives and negatives. A total of ten systems were reviewed and were otherwise negative. PMHx/PSHx: Depression GERD Chronic back pain Hypertension SOCIAL HISTORY: Patient lives at home. PHYSICAL EXAM: GENERAL: Sleepy, easily aroused to voice, in no distress. HENT: Normocephalic, atraumatic. Oropharynx unremarkable. EYES: PERRL. Normal conjunctiva. Sclera non-icteric. NECK: Inspection normal. Non-tender. Supple. No nuchal rigidity. FROM. No masses. RESPIRATORY: Clear to auscultation. No wheezes. No rales. Normal respiratory e ffort. Pulse Oximeter was 75% on room air. CARDIAC: Normal rate. Normal rhythm. No murmurs. No rubs. Extremities warm and well perfused. Pulses equal. No JVD. GI: Soft, non-distended. No tenderness to palpation. No rebound or guarding. No masses. RECTAL: Deferred. MUSCULOSKELETAL: Atraumatic. Chest examination reveals no tenderness. The back is symmetrical on inspection without obvious abnormality. There is no CVA tenderness to palpation. No joint edema. LOWER EXTREMITIES: Calves are equal size bilaterally and non-tender. No edema. No discoloration. NEURO: Speech is somewhat thick . No sensory or motor deficits noted. Cranial nerves are intact. SKIN: No rash or jaundice noted. EMERGENCY DEPARTMENT COURSE: 1741: Past medical records reviewed. The patient was evaluated in room B10, and a complete history and physical examination were performed. 2014: The patient stated that he is having right-sided chest pain so a repeat EKG will be ordered. 2030: I discussed the patient's case with Martí[facility] Hospitalist who will evaluate the patient for further hospitalization. MEDICAL DECISION MAKING: Nursing notes reviewed and agree them. Additional history obtained from family. The patient's history was concerning for altered mental status, confusion, nausea vomiting, headache. Differential diagnosis: Etiologies such as infection, hypoglycemia, electrolyte abnormalities, cardiac sources, intracerebral event, toxicologic, neurologic, SAH, SDH, as well as others were entertained. Physical examination: As above. The patient was noted to be hypoxic with a pulse oximetry of 75% on room air. ER treatment provided: IV Lock Normal saline hydration IV Zofran IV vancomycin IV Zosyn On reassessment the patient felt better. Diagnostics interpretation by me: ECG: No ischemia. The labs revealed an unremarkable CBC and chemistry panel except for mild anemia and hyperglycemia. The patient's troponin was found to be elevated. Blood cultures ordered. Imaging studies: CT angiography of the head neck and chest. Pneumonia noted. Questionable cholelithiasis noted. Ultrasound imaging ordered. Patient CT is concerning for pneumonia. There is no evidence of stroke or intracranial bleeding. The patient states his headache is resolved. He has an elevated troponin. He had hypoxia. He will need further management in the hospital. Consultation: A consultation was placed with the hospitalist. The case was discussed and diagnostics were reviewed. The patient was evaluated in the ER for further treatment. IMPRESSION: Hypoxia Pneumonia Headache Altered mental status PLAN: Admit CRITICAL CARE: I have personally spent greater than 30 minutes of critical care time in the direct management of this patient. This includes bedside care, interpretation of diagnostic studies, and testing, discussion with consultants, patient, and family members, and other required patient management activities. This 30 minutes is in excess of all separately billable procedures. The scribe's documentation has been prepared under my direction and personally reviewed by me in its entirety. I confirm that the note above accurately reflects all work, treatment, procedures, and medical decision making performed by me. Impression & Plan Hypoxia, Pneumonia, Headache, Altered mental state Past Med/Surg History Medical History Depression GERD (gastroesophageal reflux disease) Chronic back pain Hypertension No significant past medical history Hypoxia (Acute) Leukocytosis Surgical History No significant past surgical history Social History Preferred Language: Frisian Communication Ability: Effective Web Sizer Required: No Beliefs That Will Affect Care: None marital status: Current Living Situation: Spouse Feels Safe at Home: Yes Safety Concerns: Feels Safe At This Time Smoking Status: Current every day smoker Tobacco Type: cigarettes Hx Alcohol Use: No Hx Substance Use: No Results & Data Vital Signs Vital Signs - 24 hr 09/08/18 17:04 09/08/18 17:26 09/08/18 17:48 Temperature 37.1 C Temperature Source Oral Oral Sepsis Recent Fever Within 48 Hours No Sepsis New/Unexplained Change in Mental Status No Sepsis Action Taken by Nursing No Action Required Pulse Rate 74 Pulse Rate [Left Finger] Respiratory Rate 18 Respiratory Effort / Characteristics Non-Labored Respiratory Depth Normal Blood Pressure 114/76 Blood Pressure [Left Arm] Blood Pressure Mean 88 Blood Pressure Mean [Left Arm] Pulse Oximetry 98 75 L Oxygen Delivery Method Room Air Room Air Oxygen Flow Rate 09/08/18 17:57 09/08/18 20:48 09/08/18 20:49 Temperature 36.8 C Temperature Source Oral Sepsis Recent Fever Within 48 Hours Sepsis New/Unexplained Change in Mental Status Sepsis Action Taken by Nursing Pulse Rate Pulse Rate [Left Finger] 80 Respiratory Rate 21 Respiratory Effort / Characteristics Respiratory Depth Blood Pressure Blood Pressure [Left Arm] 126/91 Blood Pressure Mean Blood Pressure Mean [Left Arm] 102 Pulse Oximetry 91 91 92 Oxygen Delivery Method Nasal Cannula Nasal Cannula Nasal Cannula Oxygen Flow Rate 5 3 4 09/08/18 22:00 09/08/18 23:38 09/08/18 23:47 Temperature Temperature Source Sepsis Recent Fever Within 48 Hours Sepsis New/Unexplained Change in Mental Status Sepsis Action Taken by Nursing Pulse Rate 88 Pulse Rate [Left Finger] 81 88 Respiratory Rate 19 19 Respiratory Effort / Characteristics Respiratory Depth Blood Pressure 119/67 Blood Pressure [Left Arm] 133/91 119/67 Blood Pressure Mean Blood Pressure Mean [Left Arm] 105 84 Pulse Oximetry 93 93 Oxygen Delivery Method Nasal Cannula Nasal Cannula Oxygen Flow Rate 4 4 Home Medications Current Medication List: was personally reviewed by me Laboratory Data Attestation: I reviewed the patient's lab results. Result diagrams: 09/08/18 17:18 09/08/18 17:18 Lab Results 09/08/18 09/08/18 09/08/18 Range/Units 17:18 17:18 18:03 WBC 10.06 (4.8-10.8) K/uL RBC 4.40 L (4.7-6.1) M/uL Hgb 12.8 L (14.0-18.0) g/dL POC Hgb 12.9 L (14.0-18.0) g/dl Hct 40.4 L (42-52) % POC Hct 38 L (42-52) % MCV 91.8 (80-100) fL MCH 29.1 (25-34) pg MCHC 31.7 L (32-36) g/dL RDW Std Deviation 51.2 H (36.4-46.3) fL RDW Coeff of Netta 15.2 H (11.5-14.5) % Plt Count 246 (130-400) K/uL MPV 9.6 (7.4-10.4) fL Immature Gran % (Auto) 1.2 % Neut % (Auto) 85.6 % Lymph % (Auto) 9.0 % [place] % (Auto) 4.1 % Eos % (Auto) 0.0 % Baso % (Auto) 0.1 % Immature Gran # (Auto) 0.12 H (0.00-0.02) K/uL Neut # (Auto) 8.61 H (1.4-6.5) K/uL Lymph # (Auto) 0.91 L (1.2-3.4) K/uL [place] # (Auto) 0.41 (0.11-0.59) K/uL Eos # (Auto) 0.00 (0-0.5) K/uL Baso # (Auto) 0.01 (0-0.2) K/uL POC Sodium 135 (135-144) mEq/L Sodium 134 L (136-145) mmol/L POC Potassium 4.8 (3.3-5.0) mEq/L Potassium 4.4 (3.5-5.1) mmol/L POC Chloride 94 L (101-112) mEq/L Chloride 96 L (98-107) mmol/L Carbon Dioxide 33 H (21-32) mmol/L POC Total CO2 32 H (24-31) mEq/l Anion Gap 5.0 (3-11) POC Anion Gap 15.0 L (16-25) mmol/L POC BUN 20 H (7-18) mg/dl BUN 19 H (7-18) mg/dl Creatinine 1.31 (0.6-1.4) mg/dl POC Creatinine 1.1 (0.6-1.3) mg/dl Est Cr Clr Drug Dosing 62.5 ml/min Est GFR ( Amer) 64.8 Est GFR (Non-Af Amer) 55.9 BUN/Creatinine Ratio 14.1 (10-20) Glucose 204 H (70-99) mg/dl POC Glucose (other) 184 H (70-99) mg/dl Calcium 8.4 L (8.5-10.1) mg/dl POC Ioniz Calcium Arlene 1.12 (1.12-1.32) mmol/l Magnesium 1.8 (1.8-2.4) mg/dl Total Bilirubin 0.5 (0.2-1) mg/dl AST 24 (15-37) U/L ALT 30 (12-78) U/L Alkaline Phosphatase 78 (45-117) U/L Troponin I 0.118 H* (0-0.045) ng/ml Total Protein 8.0 (6.4-8.2) gm/dl Albumin 3.8 (3.4-5.0) gm/dl Globulin 4.2 H (2.5-4.0) gm/dl Albumin/Globulin Ratio 0.9 (0.9-2) TSH 0.530 (0.300-4.500) uIu/ml Administered Medications Sodium Chloride (Nss 1000ml) 1,000 mls @ 125 mls/hr IV .Q8H BLANCA Stop: 09/09/18 01:59 Last Admin: 09/08/18 18:24 Dose: 125 mls/hr Documented by: [id number] Ioversol (Optiray 320 125ml) 119 ml IV ONCE PRN PRN Reason: Interaction Checking Stop: 09/12/18 18:42 Last Admin: 09/08/18 18:44 Dose: 119 ml Documented by: [id number] Discontinued Medications Piperacillin Sod/Tazobactam Sod (Zosyn) 4.5 gm in 120 mls @ 240 mls/hr IV NOW ONE Stop: 09/08/18 19:47 Last Infusion: 09/08/18 21:38 Dose: 0 mls/hr Documented by: [id number] Admin: 09/08/18 21:02 Dose: 240 mls/hr Documented by: [id number] Ondansetron HCl (Zofran) 4 mg IV NOW STA Stop: 09/08/18 17:49 Last Admin: 09/08/18 20:56 Dose: Not Given Documented by: [id number] Imaging Data Radiologist's Impression: Radiology results as stated below per my review and the radiologist's interpretation: XR chest 1V portable HISTORY: Shortness of breath. weakness COMPARISON: Chest 07/05/2018. FINDINGS: Mild elevation the right hemidiaphragm appears to be chronic. No pleural effusions. No pneumothorax. The heart remains mildly enlarged. No evidence for pulmonary edema. No focal lung consolidations to suggest pneumonia. Low lung volumes are again noted. IMPRESSION: No significant change compared to the prior study. No acute process. Electronically signed by: Dandy Chawla M.D. 09/08/2018 6:18 PM HEAD & NECK CTA HISTORY: headache, confusion TECHNIQUE: Multiaxial CT images of the head were performed both before and after the intravenous administration of contrast to evaluate the major cerebral vessels. Multiaxial CT images of the neck were also performed following the intravenous administration of contrast to evaluate the major cervical vessels. Maximum intensity projection images were also obtained. A dose lowering technique was utilized adhering to the principles of ALARA. COMPARISON: None. FINDINGS: There is no mass, hematoma, midline shift, or acute infarct. Visualized intracranial internal carotid arteries, distal vertebral arteries, and basilar artery are widely patent. There is no significant stenosis, occlusion, or aneurysm seen within the bilateral ACAs, MCAs, or life agent. The aortic arch and proximal great vessels are widely patent. There is no significant stenosis, occlusion, or dissection identified within the bilateral common carotid, internal carotid, or vertebral arteries. Tortuous bilateral internal carotid arteries. Postoperative changes within the mandible. IMPRESSION: 1. No significant stenosis, occlusion, or aneurysm within the [place]. 2. No significant stenosis, occlusion, or dissection identified within the carotid or vertebral arteries. 3. No acute intracranial abnormality. Electronically signed by: Dandy Chawla M.D. 09/08/2018 7:02 PM CHEST CTA for PULMONARY ARTERIES CT DOSE: HISTORY: PE-hypoxia, elevated troponin TECHNIQUE: Multiaxial CT images of the chest were performed following the intravenous administration of contrast to evaluate the pulmonary arteries. Maximal intensity projection images were also obtained. A dose lowering technique was utilized adhering to the principles of ALARA. COMPARISON STUDY: Chest CT 08/07/2018. FINDINGS: Old, healed right-sided rib fractures. A 5 mm gallstone is identified. Hepatic steatosis. Chronic elevation of the right hemidiaphragm. Questionable thickening of the gallbladder wall. The visualized adrenal glands and spleen are unremarkable. Trace right pleural effusion has significantly improved. No mediastinal or hilar lymphadenopathy. Normal esophagus. Manubrial hemangioma remains unchanged. Patchy and linear densities at the right lung base are again noted. This favors atelectasis. No pneumothorax. Stable 5 mm nodule within the lingula on image 149 and a 5 mm nodule within the left lower lobe on image 127. These demonstrate greater than 2 year stability and are therefore considered to be benign. No pneumothorax. The central airways are patent. Normal caliber thoracic aorta. No evidence for dissection. No filling defects within the pulmonary suggest pulmonary embolus. IMPRESSION: 1. No evidence for pulmonary blood. 2. Cholelithiasis. There is questionable thickening of the gallbladder wall. If the patient is complaining of right upper quadrant pain then consider follow-up ultrasound for further evaluation and to exclude a developing acute cholecystitis. 3. Chronic elevation of the right hemidiaphragm with right basilar densities. This favors atelectasis. A pneumonia could also have a similar appearance. 4. Trace right pleural effusion has decreased in size. Electronically signed by: Dandy Chawla M.D. 09/08/2018 7:14 PM HEAD & NECK CTA HISTORY: headache, confusion TECHNIQUE: Multiaxial CT images of the head were performed both before and after the intravenous administration of contrast to evaluate the major cerebral vessels. Multiaxial CT images of the neck were also performed following the intravenous administration of contrast to evaluate the major cervical vessels. Maximum intensity projection images were also obtained. A dose lowering technique was utilized adhering to the principles of ALARA. COMPARISON: None. FINDINGS: There is no mass, hematoma, midline shift, or acute infarct. Visualized intracranial internal carotid arteries, distal vertebral arteries, and basilar artery are widely patent. There is no significant stenosis, occlusion, or aneurysm seen within the bilateral ACAs, MCAs, or life agent. The aortic arch and proximal great vessels are widely patent. There is no significant stenosis, occlusion, or dissection identified within the bilateral common carotid, internal carotid, or vertebral arteries. Tortuous bilateral internal carotid arteries. Postoperative changes within the mandible. IMPRESSION: 1. No significant stenosis, occlusion, or aneurysm within the [place]. 2. No significant stenosis, occlusion, or dissection identified within the carotid or vertebral arteries. 3. No acute intracranial abnormality. Electronically signed by: Dandy Chawla M.D. 09/08/2018 7:02 PM ABDOMINAL ULTRASOUND, RIGHT UPPER QUADRANT HISTORY: Abnormal CT. eval for cholelithiasis. COMPARISON: Chest CTA 09/08/2018. Abdominal ultrasound 07/03/2018. FINDINGS: Pancreas: Obscured by overlying bowel gas. Liver: The liver is echogenic consistent with fatty change. Gallbladder: A few small gallstones. Borderline thickened wall measuring 3 mm. However, this is not significantly changed. No pericholecystic fluid. CBD: 6 mm. Right kidney: No hydronephrosis. IMPRESSION: Borderline gallbladder wall thickening with a a few small gallstones. This is not significantly change compared to the prior study and therefore may be within the range of normal limits for the patient. However, if the patient is complaining of right upper quadrant pain then consider follow-up nuclear medicine HIDA scan for further evaluation. Electronically signed by: Dandy Chawla M.D. 09/08/2018 8:39 PM ECG Data Attestation: I personally reviewed and interpreted this ECG as follows: Indication: vomiting Rate (beats per minute): 84 Rhythm: normal sinus Findings: no PAC, no PVC, no ST depression and no ST elevation Additional Comments: Repeat ECG: Indication: chest pain Rate: 87 Rhythm:normal sinus Findings: No ST elevation, No ST depression, No PVC, No PAC Blood Pressure Blood Pressure Findings: Normal blood pressure Discharge Plan Visit Data Chief Complaint: Vomiting Stated Complaint: VOMITING ED Provider: Jayy Correa Discharge Problem: Hypoxia, Pneumonia, Headache, Altered mental state Patient Disposition: Being Evaluated by Hospitalist Discharge Instructions Interventions: ED Discharge Assessment Last Done: 09/08/18 23:47 Forms Stand Alone Forms: My [facility] Prescriptions Prescriptions: No Action cyclobenzaprine 10 mg Tablet 10 mg PO HS PRN (Reason: Muscle Spasm) RF: 0 venlafaxine [Effexor XR] 37.5 mg Capsule,Extended Release 24hr PO BID RF: 0 gabapentin 600 mg Tablet 600 mg PO BID RF: 0 amlodipine 5 mg Tablet 5 mg PO DAILY RF: 0 meloxicam 7.5 mg Tablet PO DAILY RF: 0 fentanyl 100 mcg/hr Patch 72 Hour 1 patch TRANSDERMAL Q OTHER DAY RF: 0 omeprazole 20 mg Capsule,Delayed Release(Dr/Ec) 20 mg PO BID RF: 0 pseudoephedrine HCl [Sudafed] 30 mg Tablet 30 mg PO DAILY PRN (Reason: Congestion) RF: 0 Referrals Referrals: Jayy Hodges [Other] Discharge Problem: Pneumonia Qualifiers: Pneumonia type: due to unspecified organism Laterality: unspecified laterality Lung location: unspecified part of lung Qualified Code(s): J18.9 - Pneumonia, unspecified organism Headache Qualifiers: Headache type: unspecified Headache chronicity pattern: acute headache Intractability: not intractable Qualified Code(s): R51 - Headache Altered mental state Qualifiers: Altered mental status type: unspecified Qualified Code(s): R41.82 - Altered mental status, unspecified The benjaminibe's documentation has been prepared under my direction and personally reviewed by me in its entirety. I confirm that the note above accurately reflects all work, treatment, procedures, and medical decision making performed by me.
--- NOTE | 2018-09-08 20:40 | Ultrasound Report ---
ABDOMINAL ULTRASOUND, RIGHT UPPER QUADRANT HISTORY: Abnormal CT. eval for cholelithiasis. COMPARISON: Chest CTA 09/08/2018. Abdominal ultrasound 07/03/2018. FINDINGS: Pancreas: Obscured by overlying bowel gas. Liver: The liver is echogenic consistent with fatty change. Gallbladder: A few small gallstones. Borderline thickened wall measuring 3 mm. However, this is not s ignificantly changed. No pericholecystic fluid. CBD: 6 mm. Right kidney: No hydronephrosis. IMPRESSION: Borderline gallbladder wall thickening with a a few small gallstones. This is not significantly iverson e compared to the prior study and therefore may be within the range of normal limits for the patient. However, if the patient is complaining of right upper quadrant pain then consider follow-up nuclear medicine HIDA scan for further evaluation. Electronically signed by: Dandy Chawla M.D. 09/08/2018 8:39 PM
[2018-09-08] MEDS ORDERED: PIPERACILLIN/TAZOBACTAM 4.5 GM in DEXTROSE 5% 100 ML IV STA (23:14)
[2018-09-08] MEDS ORDERED: fentaNYL 100 MCG/HR TDSY TD SCH (23:15)
--- NOTE | 2018-09-08 23:20 | History & Physical Report ---
Date of Service September 08, 2018 Assessment & Plan (1) Pneumonia: 68-year-old male with past medical history of hypertension, GERD, chronic back pain presents with hypoxia and encephalopathy for 1 day. Hypoxic respiratory distress, pneumoniaaspiration versus healthcare acquired? Right basilarpatient was treated broadly in the emergency room, will continue Vanco/Zosyn Speech eval, endorses history of choking cough with eating and drinking. Was recently at the emergency room this week with his wifeaspiration versus healthcare acquired Continue IV fluids Follow blood cultures Metabolic encephalopathy in the setting of pneumonia We will get VBG, pending Bicarb is 32 can panel Patient is on a number of chronic pain medications. We will continue pain medications since patient's back at baseline follow respiratory status closely on narcotic medications NSTEMI Continue trending troponin Hypertension Continue amlodipine Chronic pain Continue cyclobenzaprine, fentanyl patch, gabapentin, meloxicam, Effexor Wash closely in the setting of hypoxia GERD Continue PPI DVT prophylaxis SCDs/ambulation Contraindicated in the setting of coffee-ground emesis CODE STATUS Full code (2) Headache: (3) Metabolic encephalopathy: (4) Depression: (5) GERD (gastroesophageal reflux disease): (6) Chronic back pain: (7) Hypertension: (8) Hypoxia: History of Present Illness Primary Care Provider: Jayy Tracie 68-year-old male with a history of hypertension, chronic back pain, GERD presents with hypoxia and encephalopathy for 1 day. Patient is accompanied by his who states that the patient was very fatigued this morning. She states that once he did get up, he seemed confused and had a fall while walking across the living room. She denies any facial droop or slurred speech, but states that he was just not making sense. Patient states that he had a headache this morning " and I just needed to vomit". He states that over the past couple months he has had severe headaches that have been relieved with emesis. states that there was black chunks in his vomit today. He has been worked up for these headaches by his PCPoutpatient imaging included CT of the head which was negative. On arrival to the emergency room he was hypoxic, requiring 4 L nasal cannula. He is not on oxygen at home. He was seen in the hospital in June for pneum onia. At that time, he had an effusion that was tapped and he was found to have some hilar lymphadenopathy on CT. Denies a history of COPD or smoking. Patient states that he sometimes chokes when eating and drinking. He states that he has never had a speech eval. Review of systems Constitutional; no fevers, chills HEENT; denies sore throat, runny nose cough CV; no chest pain, no palpitations Pulmonary; shortness of breath as described above GI; no abdominal pain, no nausea/vomiting/diarrhea Allergies Allergy/AdvReac Type Severity Reaction Status Date / Time bee venom protein (honey bee) Allergy Intermediate EXCESSIVE Verified 09/08/18 18:09 SWELLING AT SITE sulfamethoxazole Allergy Intermediate TONGUE Verified 09/08/18 18:09 SWELLS, WHITE BLISTERS IN MOUTH. trimethoprim Allergy Intermediate TONGUE Verified 09/08/18 18:09 SWELLS, WHITE BLISTERS IN MOUTH. adhesive Allergy Mild SKIN Verified 09/08/18 18:09 IRRITATION Bactrim Allergy Unknown . Unverified 07/23/15 11:07 morphine AdvReac Intermediate PROJECTILE Verified 09/08/18 18:09 VOMITING Home Medications Home Medications Medication Instructions Recorded Confirmed Type amlodipine 5 mg PO DAILY 06/26/18 09/08/18 History cyclobenzaprine 10 mg PO HS PRN 06/26/18 09/08/18 History fentanyl 1 patch TRANSDERMAL Q OTHER DAY 06/26/18 09/08/18 History gabapentin 600 mg PO BID 06/26/18 09/08/18 History meloxicam 0 mg PO DAILY 06/26/18 09/08/18 History omeprazole 20 mg PO BID 06/26/18 09/08/18 History pseudoephedrine HCl [Sudafed] 30 mg PO DAILY PRN 06/26/18 09/08/18 History venlafaxine [Effexor XR] 0 mg PO BID 06/26/18 09/08/18 History Past Med/Surg History Medical History Depression GERD (gastroesophageal reflux disease) Chronic back pain Hypertension No significant past medical history Hypoxia (Acute) Leukocytosis Surgical History No significant past surgical history Social History Preferred Language: Mohawk Communication Ability: Effective Photograph Printer Required: No Beliefs That Will Affect Care: None marital status: Current Living Situation: Spouse Feels Safe at Home: Yes Safety Concerns: Feels Safe At This Time Smoking Status: Current every day smoker Tobacco Type: cigarettes Hx Alcohol Use: No Hx Substance Use: No Review of Systems Review of Systems: All systems reviewed & are unremarkable except as noted in HPI & below Physical Exam Constitutional: WD/WN, vitals as above Eyes: PERRL, conjunctivae normal, anicteric sclerae ENMT: external ear and nose normal, oropharynx normal Neck: trachea midline, no thyromegaly Respiratory: normal respiratory effort; no respiratory distress, no labored breathing, no retractions and no cough Cardiovascular: RRR, no murmur, no edema Gastrointestinal (Abdomen): normal bowel sounds, soft, nontender, no hepatosplenomegaly Musculoskeletal: no cyanosis or clubbing, extremities motor strength 5/5 Skin: no rashes, warm and dry Neurologic: PERRL, EOMI, accommodation nl, no face palsy, no dysarthria Psychiatric: A+Ox3, euthymic affect Results & Data Vital Signs (Past 12 Hours) Vital Signs Temp Pulse Pulse Resp BP BP Pulse Ox 09/08/18 22:00 81 133/91 09/08/18 20:49 92 09/08/18 20:48 36.8 C 80 21 126/91 91 09/08/18 17:57 91 09/08/18 17:48 75 L 09/08/18 17:04 37.1 C 74 18 114/76 98 Diagnostic Findings Ultrasound Report Patient: TIM JAVIER Date: 09/08/18 MR#: [id number]: [address] [facility] Acct ID:[id number]: [address] Date: [address] [place] [address] Zip: [place] [address] Age: 68Location: Sex: M Room/Bed: Att Phy: Diagnosis: VOMITING Aziza Phy: Leonidas Hodges Date: 09/08/18 Fam Phy: Interpreting Phy: Dandy Chawla MD Admit Phy: Ordering Phy: Jayy Correa MD cc: ~ ABDOMINAL ULTRASOUND, RIGHT UPPER QUADRANT HISTORY: Abnormal CT. eval for cholelithiasis. COMPARISON: Chest CTA 09/08/2018. Abdominal ultrasound 07/03/2018. FINDINGS: Pancreas: Obscured by overlying bowel gas. Liver: The liver is echogenic consistent with fatty change. Gallbladder: A few small gallstones. Borderline thickened wall measuring 3 mm. However, this is not significantly changed. No pericholecystic fluid. CBD: 6 mm. Right kidney: No hydronephrosis. IMPRESSION: Borderline gallbladder wall thickening with a a few small gallstones. This is n ot significantly change compared to the prior study and therefore may be within the range of normal limits for the patient. However, if the patient is complaining of right upper quadrant pain then consider follow-up nuclear medicine HIDA scan for further evaluation. Electronically signed by: Dandy Chawla M.D. 09/08/2018 8:39 PM Dictated: 09/08/182035 Transcribed: 09/08/182035 CT Scan Report Patient: TIM JAVIER Date: 09/08/18 MR#: [id number]: [address] [facility] Acct ID:[id number]: [address] Date: [address] [place] [address] Zip: [place] [address] Age: 68Location: ED Sex: M Room/Bed: Att Phy: Diagnosis: VOMITING Aziza Phy: Leonidas Hodges Date: 09/08/18 Fam Phy: Interpreting Phy: Dandy Chawla MD Admit Phy: Ordering Phy: Jayy Correa MD cc: ~ HEAD & NECK CTA HISTORY: headache, confusion TECHNIQUE: Multiaxial CT images of the head were performed both before and after the intravenous administration of contrast to evaluate the major cerebral vessels. Multiaxial CT images of the neck were also performed following the intravenous administration of contrast to evaluate the major cervical vessels. Maximum intensity projection images were also obtained. A dose lowering technique was utilized adhering to the principles of ALARA. COMPARISON: None. FINDINGS: There is no mass, hematoma, midline shift, or acute infarct. Visualized intracranial internal carotid arteries, distal vertebral arteries, and basilar artery are widely patent. There is no significant stenosis, occlusion, or aneurysm seen within the bilateral ACAs, MCAs, or hydrometallurgical engineer. The aortic arch and proximal great vessels are widely patent. There is no significant stenosis, occlusion, or dissection identified within the bilateral common carotid, internal carotid, or vertebral arteries. Tortuous bilateral internal carotid arteries. Postoperative changes within the mandible. IMPRESSION: 1. No significant stenosis, occlusion, or aneurysm within the [place]. 2. No significant stenosis, occlusion, or dissection identified within the carotid or vertebral arteries. 3. No acute intracranial abnormality. Electronically signed by: Dandy Chawla M.D. 09/08/2018 7:02 PM Dictated: 09/08/181852 Transcribed: 09/08/181852 TIM JAVIER 68 M 1950 [place], [place] [phone] CT Scan Report Patient: TIM JAVIER GAdmit Date: 09/08/18 MR#: [id number]: [address] [facility] Acct ID:[id number]: [address] Date: 1950[facility] Zip: [place] [address] Age: 68Location: ED Sex: M Room/Bed: Att Phy: Diagnosis: VOMITING Aziza Phy: Leonidas Hodges Date: 09/08/18 Fam Phy: Interpreting Phy: Dandy Chawla MD Admit Phy: Ordering Phy: Jayy Correa MD cc: ~ CHEST CTA for PULMONARY ARTERIES CT DOSE: HISTORY: PE-hypoxia, elevated troponin TECHNIQUE: Multiaxial CT images of the chest were performed following the intravenous administration of contrast to evaluate the pulmonary arteries. Maximal intensity projection images were also obtained. A dose lowering technique was utilized adhering to the principles of ALARA. COMPARISON STUDY: Chest CT 08/07/2018. FINDINGS: Old, healed right-sided rib fractures. A 5 mm gallstone is identified. Hepatic steatosis. Chronic elevation of the right hemidiaphragm. Questionable thickening of the gallbladder wall. The visualized adrenal glands and spleen are unremarkable. Trace right pleural effusion has significantly improved. No mediastinal or hilar lymphadenopathy. Normal esophagus. Manubrial hemangioma remains unchanged. Patchy and linear densities at the right lung base are again noted. This favors atelectasis. No pneumothorax. Stable 5 mm nodule within the lingula on image 149 and a 5 mm nodule within the left lower lobe on image 127. These demonstrate greater than 2 year stability and are therefore considered to be benign. No pneumothorax. The central airways are patent. Normal caliber thoracic aorta. No evidence for dissection. No filling defects within the pulmonary suggest pulmonary embolus. IMPRESSION: 1. No evidence for pulmonary blood. 2. Cholelithiasis. There is questionable thickening of the gallbladder wall. If the patient is complaining of right upper quadrant pain then consider follow-up ultrasound for further evaluation and to exclude a developing acute cholecystitis. 3. Chronic elevation of the right hemidiaphragm with right basilar densities. This favors atelectasis. A pneumonia could also have a similar appearance. 4. Trace right pleural effusion has decreased in size. Electronically signed by: Dandy Chawla M.D. 09/08/2018 7:14 PM Dictated: 09/08/181902 Transcribed: 09/08/181902 [facility], [place] [phone] XRay Report Patient: TIM JAVIER Date: 09/08/18 MR#: [id number]: [address] Acct ID:[id number]: [address] Date: [address] [place] [address] Zip: [place] [address] Age: 68Location: ED Sex: M Room/Bed: Att Phy: Diagnosis: VOMITING Aziza Phy: Leonidas Hodges Date: 09/08/18 Fam Phy: Interpreting Phy: Dandy Chawla MD Admit Phy: Ordering Phy: Jayy Correa MD cc: ~ XR chest 1V portable HISTORY: Shortness of breath. weakness COMPARISON: Chest 07/05/2018. FINDINGS: Mild elevation the right hemidiaphragm appears to be chronic. No pleural effusions. No pneumothorax. The heart remains mildly enlarged. No evidence for pulmonary edema. No focal lung consolidations to suggest pneumonia. Low lung volumes are again noted. IMPRESSION: No significant change compared to the prior study. No acute process. Electronically signed by: Dandy Chawla M.D. 09/08/2018 6:18 PM Dictated: 09/08/181816 Transcribed: 09/08/181816 Supervising Physician Co-Signing Physician Notes Attending addendum: I have physically seen this patient, have supervised the medical residents activities, and agree with the H&P unless as otherwise noted. Assessment and Plan: Acute respiratory failure with hypoxia /pneumonia involving right lower lobe of lung-- Continue vancomycin IV and Zosyn IV begun in the ED. Duonebs every 4 hours while awake and every 2 hours when necessary. Guaifenesin extended release 600 mg p.o. twice daily. Sputum Gram stain and culture. NSTEMI/hypertension- The patient will be admitted to telemetry for serial cardiac enzymes, serial EKG's, cardiac rhythm monitoring and a 2-D echocardiogram with Dopplers. Continue amlodipine. Remainder of orders and notations as noted. Resident Activity Tracking Resident Involvement: Resident Care Provided Care Provided: Adult Hospital Medicine (1) Headache Headache chronicity pattern: acute headache Headache type: unspecified Intractability: not intractable Qualified Code(s): R51 - Headache
[2018-09-09] MEDS ORDERED: ALUMINUM/MAGNESIUM SUSP 30 ML UDC PO PRN (00:28)
[2018-09-09] MEDS ORDERED: MAGNESIUM HYDROXIDE SUSP 30 ML UDC PO PRN (00:28)
[2018-09-09] MEDS: fentaNYL 100 MCG/HR TDSY TD SCH (01:05)
[2018-09-09] MEDS: CHECK FENTANYL PATCH PLACEMENT SCH ×3 (01:07→15:50)
[2018-09-09] MEDS: ALBUTEROL 0.083% NEBU SOLN 3 ML VIAL NEB SCH ×4 (01:48→19:52)
[2018-09-09] MEDS: PIPERACILLIN/TAZOBACTAM 3.375 GM in DEXTROSE 5% 100 ML IV SCH ×3 (01:56→18:08)
[2018-09-09 02:29] LABS: Appearance Urine Clear (Clear); Bilirubin Urine Negative (Negative); Blood Urine Negative (Negative); Color Urine Yellow; Glucose Urine UA Negative (Negative); Ketones Urine Negative (Negative); Leukocyte Esterase Urine Negative (Negative); Nitrite Urine Negative (Negative); Protein Urine Negative (Negative); Specific Gravity Urine 1.037 (1.000-1.030); Urobilinogen Urine Negative (Negative)
[2018-09-09] MEDS: ACETAMINOPHEN 325 MG TAB PO PRN ×2 (03:32→10:22)
[2018-09-09] MEDS: CYCLOBENZAPRINE HCL 10 MG TAB PO PRN ×2 (06:03→20:27)
[2018-09-09 07:43] LABS: Basophils # (auto) 0.02 K/uL (0-0.2); Basophils % (auto) 0.2 %; Eosinophils # (auto) 0.04 K/uL (0-0.5); Eosinophils % (auto) 0.4 %; Hematocrit (blood only) 34.5 % (42-52); Hemoglobin 11.4 g/dL (14.0-18.0); Immature Granulocytes # (auto) 0.05 K/uL (0.00-0.02); Immature Granulocytes % (auto) 0.4 %; Lymphocytes # (auto) 2.78 K/uL (1.2-3.4); Lymphocytes % (auto) 24.6 %; Monocytes # (auto) 1.12 K/uL (0.11-0.59); Monocytes % (auto) 9.9 %; Neutrophils # (auto) 7.28 K/uL (1.4-6.5); Neutrophils % (auto) 64.5 %; Platelet Count 192 K/uL (130-400); RDW Coefficient of Variation 15.2 % (11.5-14.5); Red Blood Count 3.92 M/uL (4.7-6.1); White Blood Count 11.29 K/uL (4.8-10.8)
[2018-09-09 07:50] LABS: Base Excess VBG 6.7 mEq/L; Oxygen Saturation VBG 69.7 %; pH VBG 7.34 (7.36-7.41)
[2018-09-09] MEDS: AMLODIPINE BESYLATE 5 MG TAB PO SCH (08:04)
[2018-09-09] MEDS: MELOXICAM 7.5 MG TAB PO SCH (08:04)
[2018-09-09] MEDS: GABAPENTIN 600 MG TAB PO SCH ×2 (08:04→20:27)
[2018-09-09] MEDS: PANTOprazole 40 MG TAB PO SCH ×2 (08:04→20:28)
[2018-09-09 08:26] LABS: BUN Creatinine Ratio 15.2 (10-20); Calcium 8.1 mg/dl (8.5-10.1); Creatinine Clr Calc Pharmacy 77.6 ml/min; Est GFR (African American) 83.8; Est GFR (Non-African American) 72.3; Potassium 3.7 mmol/L (3.5-5.1)
[2018-09-09] MEDS: VENLAFAXINE HCL XR 37.5 MG CAPXR PO SCH ×2 (08:45→20:26)
--- NOTE | 2018-09-09 09:44 | Pharmacy Report ---
Pharmacy Abx Initial Consult - Date of Service September 09, 2018 - Pharmacy Dosing Scope Date of Consult: 09/09/18 Consultation requested by: Dr. Lamas Pharmacy is consulted to initiate vancomycin and Zosyn IV dosing therapy, order appropriate labs and adjust drug dose/frequency. - Subjective The patient is a 68 year old M admitted on 09/08/18 23:08 with possible aspiration pneumonia. - Objective Height: 5 ft 10 in Weight: 93.3 kg Vital Signs (Past 12hrs): Vital Signs Temp Pulse Pulse Resp BP BP Pulse Ox 09/09/18 07:46 36.9 C 78 18 94/53 L 93 09/09/18 05:52 95 09/09/18 04:21 37.5 C 92 H 16 106/52 L 98 09/09/18 01:48 97 H 16 96 09/09/18 00:00 90 09/08/18 23:47 88 119/67 93 09/08/18 23:38 88 19 119/67 93 09/08/18 23:27 36.6 C 85 16 156/86 H 90 09/08/18 22:00 81 133/91 Lab Results (24hrs): Laboratory Tests (24 Hours) 09/09/18 09/09/18 09/09/18 08:32 07:26 07:26 WBC 11.29 H Neut # (Auto) 7.28 H Creatinine 1.06 Est Cr Clr Drug Dosing 77.6 Random Vancomycin < 0.8 09/08/18 09/08/18 17:18 17:18 WBC 10.06 Neut # (Auto) 8.61 H Creatinine 1.31 Est Cr Clr Drug Dosing 62.5 Random Vancomycin Micro Results: 09/08/18 19:52 Aerobic Blood Culture - Pending Blood Anaerobic Blood Culture - Pending 09/08/18 19:51 Aerobic Blood Culture - Pending Blood Anaerobic Blood Culture - Pending - Risk Factors for Resistance * recent hospitalization (June 2018) * Recent antimicrobial use (Augmentin) - Assessment & Plan Assessment 68 year old M admitted with worsening mental status, possible aspiration pneumonia. Plan vancomycin and Zosyn for treatment of aspiration pneumonia Vancomycin IV * Estimated PK Parameters: Vd 0.7 L/kg, Sylvester 0.069 hr-1, t1/2 10 hr * Loading dose: 2250 mg (25 mg/kg) - it was unclear of the midnight dose of vancomycin had been given. Charted as non-administered but night-shift pharmac ist believed that dose was given. Therefore did not assume anything. Ordered stat random which was LOW. Therefore dose not given. Reload late. * Maintenance dose: 1500 mg IV (16 mg/kg) every 12 hours * Goal trough level for pulmonary indication : 15 to 20 mcg/mL * Trough ordered for 09/11/18 prior to 10 AM dose Piperacillin/tazobactam * 3.375 g bolus administered over 30 minutes, then 3.375 g IV extended infusion every 8 hours for CrCl greater than 20 mL/min OR every 12 hours for CrCl 20 mL/min or less and dialysis. Pharmacy will continue to follow and will adjust dose/frequency as necessary. Thank you.
[2018-09-09] MEDS ORDERED: VANCOMYCIN HCL 2,250 MG in SODIUM CHLORIDE 0.9% 500 ML IV ONE (10:00)
--- NOTE | 2018-09-09 14:53 | Family Medicine Progress Note ---
Date of Service September 09, 2018 Assessment & Plan (1) Altered mental state: Basim is a 68-year-old male with a past medical history of hypertension, GERD, chronic back pain, and depression who presented with altered mental status and hypoxia and she was admitted for hypoxic respiratory distress and possible metabolic encephalopathy. Hypoxic respiratory failure 2/2 pneumonia versus aspiration Concern for right basilar crackles on admission, chest x-ray shows no acute pathology Leukocytosis to 11.29 today Empiric Vanco/Zosyn pending blood cultures Increased O2 requirement of 4 L nasal cannula from no home requirement Chest CTA shows no PE but "chronic elevation of the right hemidiaphragm with right basilar densities. This favors atelectasis. A pneumonia could also have a similar appearance." Continue empiric antibiotics as above Altered mental status/encephalopathy, metabolic versus narcosis Patient had reportedly been cutting his final patches into quarters and manipulating them with his bare hands. It is possible he had exposure to the internal contents of the fentanyl patch with a supra therapeutic absorption. On admission had a bicarb of 32 and a VBG which showed mild acidosis to 7.34 with a PCO2 of 65 suggesting respiratory acidosis. Greatly improved today, oriented to date, place, and person and answers all questions appropriately + patient education around the correct use of transdermal systems Continue pneumonia treatment as above NSTEMI, type II Troponin leak of 0.118 on admit, peaked at 0.169, now downtrending to .133. Suspect type II demand mismatch ischemia in the setting of acute illness Normal sinus rhythm without T wave inversions or ST changes on EKG Cardiac echo shows LVEF 50 to 55%, normal left ventricular systolic function, moderate AV sclerosis without significant stenosis, and increased RV SP at 50 to 60 mmHg. Cholelithiasis Gallbladder ultrasound shows small stones and a borderline thickened gallbladder, but no change from prior measurement and patient is clinically asymptomatic without right upper quadrant pain on meals or palpation. If he develops symptoms of gallbladder disease then consider HIDA scan versus GI consult GERD Continue pantoprazole 40 mg p.o. twice daily Full Code (2) Pneumonia: (3) Metabolic encephalopathy: (4) DVT prophylaxis: (5) GERD (gastroesophageal reflux disease): Supervising Physician Co-Signing Physician Notes I saw the patient with the resident physician and confirmed patiño portions of the history and physical exam. I agree with the impression and plan as noted above. The patient tells me he feels much better this morning. When I asked about the questionable confusion yesterday, the patient states that he was confused after awakening from a deep sleep and then he tripped over something in the hallway which she was not expecting to be there. This morning, the patient is alert and oriented - there is no indication of an altered mental status. He is breathing much easier though still has a need for supplemental oxygen. It is noted that the patient is not on oxygen at home. We will continue current care. Wean oxygen. Await cultures. Subjective Mr. Pardo denies shortness of breath on 4 L of nasal cannula today. He notes he is not on any home oxygen. He denies fevers, chills, night sweats, shortness of breath, chest pain, palpitations overnight or this morning. He has just had breakfast. He reports the heart healthy meals "taste terrible "but otherwise had no problem with breakfast. Has an okay appetite, no nausea or v omiting. Denies diarrhea, constipation, and abdominal pain. Is not having right upper quadrant pain today, and no pain is been induced with his breakfast. Review of Systems Review of Systems: Constitutional: Denies fever, chills, malaise Eyes: Denies vision change ENT: Denies ear pain, sore throat, sinus pain Cardiovascular: Denies Chest pain, chest pressure, palpitations, extremity swelling Respiratory: Denies shortness of breath, cough, sputum production, difficulty breathing Gastrointestinal: Denies abdominal pain, nausea, vomiting, constipation, diarrhea Genitourinary: Denies pain with urination Musculoskeletal: Denies weakness, muscle aches/pain, joint aches/pain Integumentary:Denies rash, lesions, bruising Neurological: Denies headache, numbness, tingling Physical Exam Physical Exam: General: A&Ox3. NAD. Cooperative. HEENT: Atraumatic, normocephalic. Pulm: CTAB A&P. -wheezes, -rales, -rhonchi. Symmetrical chest rise. No increase work of breathing. No respiratory distress. Cardiac: RRR, -mrg. Radial pulses intact and symmetrical. Abdominal: Nontender, nondistended, soft. BS present. Extremity: move all extremities equally, extremity motor strength grossly 5/5 bilaterally Results & Data Vital Signs (Past 12 Hours) Vital Signs Temp Pulse Pulse Resp BP BP Pulse Ox 09/09/18 05:52 95 09/09/18 04:21 37.5 C 92 H 16 106/52 L 98 09/09/18 01:48 97 H 16 96 09/09/18 00:00 90 09/08/18 23:47 88 19 119/67 93 09/08/18 23:38 88 19 119/67 93 09/08/18 23:27 36.6 C 85 16 156/86 H 90 09/08/18 22:00 81 133/91 09/08/18 20:49 92 09/08/18 20:48 36.8 C 80 21 126/91 91 Resident Activity Tracking Resident Involvement: Resident Care Provided Care Provided: Adult Hospital Medicine (1) Altered mental state Altered mental status type: unspecified Qualified Code(s): R41.82 - Altered mental status, unspecified
[2018-09-09] MEDS: PRAMIPEXOLE DIHYDROCHLO 0.5 MG TAB PO SCH (21:56)
[2018-09-09] MEDS: VANCOMYCIN HCL 1,500 MG in SODIUM CHLORIDE 0.9% 500 ML IV SCH (21:56)
[2018-09-10] MEDS: CHECK FENTANYL PATCH PLACEMENT SCH ×3 (00:44→16:08)
[2018-09-10] MEDS: PIPERACILLIN/TAZOBACTAM 3.375 GM in DEXTROSE 5% 100 ML IV SCH ×2 (00:52→10:49)
[2018-09-10] MEDS: ALBUTEROL 0.083% NEBU SOLN 3 ML VIAL NEB SCH ×4 (01:45→19:27)
[2018-09-10 06:22] LABS: Basophils # (auto) 0.03 K/uL (0-0.2); Basophils % (auto) 0.4 %; Eosinophils # (auto) 0.16 K/uL (0-0.5); Eosinophils % (auto) 1.9 %; Hematocrit (blood only) 35.1 % (42-52); Hemoglobin 11.5 g/dL (14.0-18.0); Immature Granulocytes # (auto) 0.02 K/uL (0.00-0.02); Immature Granulocytes % (auto) 0.2 %; Lymphocytes # (auto) 1.95 K/uL (1.2-3.4); Lymphocytes % (auto) 23.1 %; Mean Corpuscular Hgb Conc 32.8 g/dL (32-36); Mean Corpuscular Volume 88.6 fL (80-100); Mean Platelet Volume 8.8 fL (7.4-10.4); Monocytes # (auto) 0.85 K/uL (0.11-0.59); Monocytes % (auto) 10.1 %; Neutrophils # (auto) 5.43 K/uL (1.4-6.5); Neutrophils % (auto) 64.3 %; Platelet Count 194 K/uL (130-400); RDW Coefficient of Variation 15.3 % (11.5-14.5); RDW Standard Deviation 49.8 fL (36.4-46.3); Red Blood Count 3.96 M/uL (4.7-6.1); White Blood Count 8.44 K/uL (4.8-10.8)
[2018-09-10 06:55] LABS: Creatinine Clr Calc Pharmacy 81.7 ml/min; Est GFR (African American) 88.8; Est GFR (Non-African American) 76.6
[2018-09-10] MEDS ORDERED: fentaNYL 100 MCG/HR TDSY TD SCH (09:00)
[2018-09-10] MEDS: MELOXICAM 7.5 MG TAB PO SCH (09:02)
[2018-09-10] MEDS: VENLAFAXINE HCL XR 37.5 MG CAPXR PO SCH ×2 (09:03→20:21)
[2018-09-10] MEDS: PANTOprazole 40 MG TAB PO SCH ×2 (09:03→20:21)
[2018-09-10] MEDS: AMLODIPINE BESYLATE 5 MG TAB PO SCH (09:03)
[2018-09-10] MEDS: GABAPENTIN 600 MG TAB PO SCH ×2 (09:03→20:21)
[2018-09-10] MEDS: VANCOMYCIN HCL 1,500 MG in SODIUM CHLORIDE 0.9% 500 ML IV SCH (10:49)
--- NOTE | 2018-09-10 13:31 | XRay Report ---
XR chest 2V routine CLINICAL HISTORY: Hypoxia with increased O2 requirements. COMPARISON STUDY: 09/08/2018 FINDINGS: The heart is normal in size. There is elevation the right hemidiaphragm. There is no focal pulmonary consolidation. There is no overt failure. There are no pleural effusions. There are linear right basilar opacities likely atelectatic[ IMPRESSION: 1. Elevation of the right hemidiaphragm with right basilar atelectasis. No acute findings. Electronically signed by: Jermaine Alfaro M.D. 09/10/2018 1:30 PM
[2018-09-10] MEDS: AMOXICILLIN/CLAVULANATE 875 MG TAB PO SCH ×2 (13:55→17:23)
--- NOTE | 2018-09-10 15:33 | Family Medicine Progress Note ---
Date of Service September 10, 2018 Assessment & Plan (1) Altered mental state: Basim is a 68-year-old male with a past medical history of hypertension, GERD, chronic back pain, and depression who presented with altered mental status and hypoxia and she was admitted for hypoxic respiratory distress and possible metabolic encephalopathy. Hypoxic respiratory failure 2/2 pneumonia versus aspiration Concern for right basilar crackles on admission, chest x-ray shows no acute pathology Leukocytosis improved to 8.4 today Empiric Vanco/Zosyn d/teo. - Oral Augmentin 875 BID for coverage of aspiration pneumonia. + probiotic Increased O2 requirement of 4 L nasal cannula from no home requirement. Wean to goal >90% Chest CTA shows no PE but "chronic elevation of the right hemidiaphragm with right basilar densities. This favors atelectasis. A pneumonia could also have a similar appearance." Altered mental status/encephalopathy, metabolic versus narcosis Patient had reportedly been cutting his final patches into quarters and manipulating them with his bare hands. On further review he does not have the gel style patches, unlikely to have had a supertherapeutic exposure/narcosis On admission had a bicarb of 32 and a VBG which showed mild acidosis to 7.34 with a PCO2 of 65 suggesting respiratory acidosis. Normal cognition today. Oriented to date, place, and person and answers all questions appropriately Continue pneumonia treatment as above NSTEMI, type II Troponin leak of 0.118 on admit, peaked at 0.169, now downtrended. Suspect type II demand mismatch ischemia in the setting of acute illness Normal sinus rhythm without T wave inversions or ST changes on EKG Cardiac echo shows LVEF 50 to 55%, normal left ventricular systolic function, moderate AV sclerosis without significant stenosis, and increased RV SP at 50 to 60 mmHg. Cholelithiasis Gallbladder ultrasound shows small stones and a borderline thickened gallbladder, but no change from prior measurement and patient is clinically asymptomatic without right upper quadrant pain on meals or palpation. If he develops symptoms of gallbladder disease then consider HIDA scan versus GI consult GERD Continue pantoprazole 40 mg p.o. twice daily Full Code Dispo: Anticipate to home when stable with home health services to assist with med management. Dispo pending increased oxygen requirement at his time. (2) Pneumonia: (3) Metabolic encephalopathy: (4) DVT prophylaxis: (5) GERD (gastroesophageal reflux disease): Supervising Physician Co-Signing Physician Notes I saw the patient with the resident physician and confirmed patiño portions of the history and physical exam. I agree with the impression and plan as noted above. The patient is feeling better today. He denies any chest pain or shortness of breath. He is currently on a nasal cannula at 5 L/min. Hypoxia, pneumonia, possibly aspiration Agree with transitioning to Augmentin 875 mg p.o. twice daily Wean oxygen Troponin elevation Demand phenomenon, would not characterize it as a non-STEMI Subjective Mr. Alvarez report his breathing is good today, although he is still on 4L NC O2. He has no shortness of breath, productive cough, or chest pain. He has appreciated a slight bilateral tremor after reading the paper for an extended period of time. He has not been on any steroids. Feels mentally clear, no confusion today. Ate breakfast, no RUQ pain or abdominal discomfort. No nausea/vomiting/diarrhea. Review of Systems Review of Systems: Constitutional: Denies fever, chills, malaise Eyes: Denies vision change ENT: Denies ear pain, sore throat, sinus pain Cardiovascular: Denies Chest pain, chest pressure, palpitations, extremity swelling Respiratory: Denies shortness of breath, sputum production, difficulty breathing. Endorses intermittent nonproductive cough this morning. Gastrointestinal: Denies abdominal pain, nausea, vomiting, constipation, diarrhea Genitourinary: Denies pain with urination Musculoskeletal: Denies weakness, muscle aches/pain, joint aches/pain Integumentary:Denies rash, lesions, bruising Neurological: Denies headache, numbness, tingling. Endorses bilateral tremor. Physical Exam Physical Exam: General: A&Ox3. NAD. Cooperative. HEENT: Atraumatic, normocephalic. Pulm: CTAB A&P. -wheezes, -rales, -rhonchi. Symmetrical chest rise. No increase work of breathing. No respiratory distress. On 4L NC O2. Cardiac: RRR, -mrg. Radial pulses intact and symmetrical. Abdominal: Nontender, nondistended, soft. BS present. Extremity: move all extremities equally, extremity motor strength grossly 5/5 bilaterally. mild bilateral resting tremor. Results & Data Vital Signs (Past 12 Hours) Vital Signs Temp Pulse Pulse Resp BP Pulse Ox 09/10/18 03:42 37.4 C 100 H 20 135/72 95 09/10/18 01:47 68 16 93 09/10/18 00:28 110 H 09/09/18 23:33 37.5 C 107 H 16 137/75 95 09/09/18 20:31 37.0 C 89 18 133/72 96 09/09/18 19:54 88 16 96 Resident Activity Tracking Resident Involvement: Resident Care Provided Care Provided: Adult Hospital Medicine (1) Altered mental state Altered mental status type: unspecified Qualified Code(s): R41.82 - Altered mental status, unspecified
[2018-09-10] MEDS ORDERED: Nursing to Pharmacy Communication ONE (16:27)
[2018-09-10] MEDS: fentaNYL 100 MCG/HR TDSY TD SCH (16:54)
[2018-09-10] MEDS: LACTOBACILLUS ACIDOPHILUS (FLORANEX) TAB PO SCH (17:23)
[2018-09-10] MEDS: PRAMIPEXOLE DIHYDROCHLO 0.5 MG TAB PO SCH (20:21)
[2018-09-10] MEDS: CYCLOBENZAPRINE HCL 10 MG TAB PO PRN (21:05)
[2018-09-11] MEDS: ALBUTEROL 0.083% NEBU SOLN 3 ML VIAL NEB SCH ×3 (02:11→14:03)
[2018-09-11] MEDS: CHECK FENTANYL PATCH PLACEMENT SCH ×2 (03:19→08:14)
[2018-09-11 07:04] LABS: Creatinine Clr Calc Pharmacy 90.3 ml/min; Est GFR (African American) 100.7; Est GFR (Non-African American) 86.9
[2018-09-11] MEDS: AMOXICILLIN/CLAVULANATE 875 MG TAB PO SCH (08:14)
[2018-09-11] MEDS: VENLAFAXINE HCL XR 37.5 MG CAPXR PO SCH (08:14)
[2018-09-11] MEDS: MELOXICAM 7.5 MG TAB PO SCH (08:15)
[2018-09-11] MEDS: PANTOprazole 40 MG TAB PO SCH (08:15)
[2018-09-11] MEDS: AMLODIPINE BESYLATE 5 MG TAB PO SCH (08:15)
[2018-09-11] MEDS: GABAPENTIN 600 MG TAB PO SCH (08:15)
[2018-09-11] MEDS: LACTOBACILLUS ACIDOPHILUS (FLORANEX) TAB PO SCH ×2 (08:16→12:01)
--- NOTE | 2018-09-11 18:23 | Discharge Summary ---
Date of Service September 11, 2018 Admission HPI Per Admitting Provider 68-year-old male with a history of hypertension, chronic back pain, GERD presents with hypoxia and encephalopathy for 1 day. Patient is accompanied by his who states that the patient was very fatigued this morning. She states that once he did get up, he seemed confused and had a fall while walking across the living room. She denies any facial droop or slurred speech, but states that he was just not making sense. Patient states that he had a headache this morning " and I just needed to vomit". He states that over the past couple months he has had severe headaches that have been relieved with emesis. states that there was black chunks in his vomit today. He has been worked up for these headaches by his PCPoutpatient imaging included CT of the head which was negative. On arrival to the emergency room he was hypoxic, requiring 4 L nasal cannula. He is not on oxygen at home. He was seen in the hospital in June for pneumonia. At that time, he had an effusion that was tapped and he was found to have some hilar lymphadenopathy on CT. Denies a history of COPD or smoking. Patient states that he sometimes chokes when eating and drinking. He states that he has never had a speech eval. Review of systems Constitutional; no fevers, chills HEENT; denies sore throat, runny nose cough CV; no chest pain, no palpitations Pulmonary; shortness of breath as described above GI; no abdominal pain, no nausea/vomiting/diarrhea Admission Exam Per Admitting Provider Constitutional: WD/WN, vitals as above Eyes: PERRL, conjunctivae normal, anicteric sclerae ENMT: external ear and nose normal, oropharynx normal Neck: trachea midline, no thyromegaly Respiratory: normal respiratory effort; no respiratory distress, no labored breathing, no retractions and no cough Cardiovascular: RRR, no murmur, no edema Gastrointestinal (Abdomen): normal bowel sounds, soft, nontender, no hepatosplenomegaly Musculoskeletal: no cyanosis or clubbing, extremities motor strength 5/5 Skin: no rashes, warm and dry Neurologic: PERRL, EOMI, accommodation nl, no face palsy, no dysarthria Psychiatric: A+Ox3, euthymic affect Principal Diagnosis Acute hypoxic, hypercarbic respiratory failure 2/2 Pneumonia Discharge Exam General: A&Ox3. NAD. Cooperative. HEENT: Atraumatic, normocephalic. Pulm: CTAB A&P. -wheezes, -rales, -rhonchi. Symmetrical chest rise. No increase work of breathing. No respiratory distress. Breathing comfortably on room air. Cardiac: RRR, -mrg. Radial pulses intact and symmetrical. Abdominal: Nontender, nondistended, soft. BS present. Extremity: move all extremities equally, extremity motor strength grossly 5/5 bilaterally. Minimal bilateral hand tremor at full elbow extension today. Discharge Data Allergies Allergy/AdvReac Type Severity Reaction Status Date / Time bee venom protein (honey bee) Allergy Intermediate EXCESSIVE Verified 09/08/18 18:09 SWELLING AT SITE sulfamethoxazole Allergy Intermediate TONGUE Verified 09/08/18 18:09 SWELLS, WHITE BLISTERS IN MOUTH. trimethoprim Allergy Intermediate TONGUE Verified 09/08/18 18:09 SWELLS, WHITE BLISTERS IN MOUTH. adhesive Allergy Mild SKIN Verified 09/08/18 18:09 IRRITATION Bactrim Allergy Unknown . Unverified 07/23/15 11:07 morphine AdvReac Intermediate PROJECTILE Verified 09/08/18 18:09 VOMITING Consultations 09/08/18 19:49 ED Decision to Admit Stat 09/09/18 00:28 Consult Case Management - Discharge Planning Routine Ordered Studies 09/08/18 17:48 CT angio head wo/w Stat 09/08/18 18:28 CT angio chest PE protocol Stat 09/08/18 18:32 CT angio neck with con Stat 09/08/18 19:18 US gallbladder Stat Hospital Course (1) Pneumonia: Basim is a 68-year-old male with past medical history of hypertension, GERD, chronic back pain, and depression who presented with altered mental status and hypoxia and he was admitted for hypoxic respiratory failure with concern for metabolic encephalopathy. Hypoxic, hypercarbic respiratory failure secondary to pneumonia On admission Basim was fatigued, and reported he felt a little confused in the morning. He required 5 L of oxygen by nasal cannula to maintain "oxygen saturation. He had no prior home oxygen requirement. VBG showed an elevated blood CO2 consistent with respiratory acidosis. Chest CTA showed no pulmonary embolism, but showed some right basilar densities concerning for pneumonia. He had a mild leukocytosis. He was started on empiric vancomycin and Zosyn and D escalated to Augmentin to cover possible aspiration pneumonia. He clinically improved with resolution of his leukocytosis and remained afebrile. He was gradually weaned back to room air. He did not require steroid treatment. His mental status improved with supportive care and he was discharged to complete 7 days of Augmentin as outpatient. Altered mental status/encephalopathy Basim was fatigued and reportedly had episodes of confusion leading up to his admission. 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 His altered mental status was likely due to metabolic encephalopathy in the setting of acute respiratory failure as noted above. His mental status improved back to baseline with treatment as noted above. He was well oriented with normal cognition at time of discharge. Elevated troponin secondary to demand ischemia. Cholelithiasis During admission gallbladder ultrasound showed small stones and a borderline thickened gallbladder but he remained without right upper quadrant pain, had no pain with meals, and without a sign. Being that he improved with treatment as above, he was felt not to have clinically significant gallbladder disease. If he were to become symptomatic in the future he would be further characterized with a HIDA scan per GI. (2) Metabolic encephalopathy: Total Time Total Time Spent Total Time Spent (In Minutes): 30 Discharge Plan Discharge Items Patient Disposition: Home - Home Health Services Reason For Visit: HYPOXIA, PNA Discharge Diagnosis: Hypoxic Respiratory Failure 2/2 Pneumonia Discharge Goals: Prevent disease and Therapeutic intervention Activity: Resume your previous activity Non-emergency contact: Primary Care Provider Call non-emergency contact if: you have any medication questions, your symptoms worsen, your pain is not controlled, your pain is unusual for you, your pain is concerning for you and you have a fever Follow-up/Referrals: Jayy Hodges M.D. [Primary Care Provider] - Diet: Heart Healthy Add Provider Instructions: You were seen in the hospital for acute hypoxic respiratory failure likely due to pneumonia. You were treated with antibiotics during admission and did well. You have been prescribed an antibiotic for pneumonia as noted below. You have been started on a baby aspirin. Please take a baby aspirin (81mg) once daily upon returning home. You have been prescribed an antibiotic, Augmentin. Please take Augmentin 875 mg twice daily for 7 days. Please complete all antibiotics even if you feel better before completing the full 7 days. If you develop any fevers, chills, rash, shortness of breath, difficulty breathing please contact your primary care physician or call 911 to return to the ED if you are concerned. A follow-up appointment is being scheduled for you with [facility] primary care on [facility]. You should receive a call to confirm your appo intment. If you do not receive a call, or need to change her appointment, please call their office at [phone]. You should be seen by 1 of their physicians next week. If you develop recurrence of the symptoms that brought into the hospital or new symptoms, including fever, chills, shortness of breath, difficulty breathing, worsening pain, or you are concerned, call your primary care doctor's office at [phone], or call 911 to go to the emergency department if you are very concerned. Prescriptions: New amoxicillin-pot clavulanate 875-125 mg Tablet 1 tab PO BIDM 7 Days Qty: 14 RF: 0 aspirin [Aspirin Low Dose] 81 mg tablet,delayed release (DR/EC) 81 mg PO DAILY Qty: 30 RF: 9 Continued cyclobenzaprine 10 mg Tablet 10 mg PO HS PRN (Reason: Muscle Spasm) RF: 0 venlafaxine [Effexor XR] 37.5 mg Capsule,Extended Release 24hr PO BID RF: 0 gabapentin 600 mg Tablet 600 mg PO BID RF: 0 amlodipine 5 mg Tablet 5 mg PO DAILY RF: 0 meloxicam 7.5 mg Tablet PO DAILY RF: 0 fentanyl 100 mcg/hr Patch 72 Hour 1 patch TRANSDERMAL Q OTHER DAY RF: 0 omeprazole 20 mg Capsule,Delayed Release(Dr/Ec) 20 mg PO BID RF: 0 pseudoephedrine HCl [Sudafed] 30 mg Tablet 30 mg PO DAILY PRN (Reason: Congestion) RF: 0 Stand-Alone Forms: [facility] Discharge Orders: Discharge Order (Routine); Ordered 09/11/18 Ordered By: Jr Gonzalez Admission Data Admit Date/Time: 09/08/18 23:08 Attending Provider: Shukri Renteria Admit Provider: Derick Lamas Primary Care Provider: Jayy Hodges Other Providers: Martínez Mo Service: Telemetry Medical Other Interventions: Discharge Summary Assessment (RN) Last Done: 09/11/18 11:49 DC Date/Time DO NOT enter until pt leaves facility: 09/11/18 15:28 Supervising Physician Co-Signing Physician Notes Co-Signing Physician Notes I saw the patient with the resident physician and confirmed patiño portions of the history and physical exam. I agree with the impression and plan as noted above. He is feeling much better today. He is maintaining adequate oxygenation on room air. His cough is pretty much resolved. The discomfort he had in his costal area is also resolved. Aspiration pneumonia Agree with transitioning to Augmentin 875 mg p.o. twice daily He will follow-up in our office in 1 to 2 weeks He will continue his routine care every 6 months at the [facility]. Troponin elevation Demand ischemia, would not characterize it as a non-STEMI Resident Activity Tracking Resident Involvement: Resident Care Provided Care Provided: Adult Hospital Medicine
--- NOTE | 2018-09-25 06:30 | Coding Query ---
CODING QUERY To promote full compliance with coding requirements relating to patient care, provider participation is requested in all cases of regional clinical research associate uncertainty. Please assist us with the question(s) below: Coding Question(s): Dr. Renteria, Per the discharge summary, The patient was started on empiric vancomycin and Zosyn and D escalated to Augmentin to cover possible aspiration pneumonia." Please clarify if the diagnosis of aspiration pneumonia was: ( ) ruled in ( ) ruled out (X ) unable to determine ( ) other, please explain Physician's Response(s): Thank you for your time, Marycarmen Tenorio, [facility]
== END 2018-09-11 15:28 | disposition home health service (06) | DRG 193 ==
LOC: ED 17:03 → 2N 23:08 → SUATTDRO 23:08 → 2N 23:47

== ENCOUNTER 2018-11-10 04:09 | Inpatient (IN) ==
[2018-11-10] MEDS ORDERED: ACETAMINOPHEN 1,000 MG/100 ML VIAL IV STA (04:29)
[2018-11-10] MEDS ORDERED: SODIUM CHLORIDE 0.9% 1000ML 1,000 ML IV SCH (04:30)
[2018-11-10] MEDS ORDERED: VANCOMYCIN CONSULT ACTIVE ONE (04:30)
[2018-11-10] MEDS ORDERED: CEFEPIME 2,000 MG/20 ML VIAL IV STA (04:30)
[2018-11-10] MEDS ORDERED: VANCOMYCIN CONSULT ACTIVE PRN (04:30)
[2018-11-10] MEDS ORDERED: VANCOMYCIN HCL 2,000 MG in SODIUM CHLORIDE 0.9% 500 ML IV ONE (04:30)
[2018-11-10] MEDS ORDERED: LEVOFLOXACIN/D5W 750 MG/150 ML BAG IV SCH (04:45)
[2018-11-10 04:47] LABS: Basophils # (auto) 0.03 K/uL (0-0.2); Basophils % (auto) 0.3 %; Eosinophils # (auto) 0.07 K/uL (0-0.5); Eosinophils % (auto) 0.7 %; Hematocrit (blood only) 37.7 % (42-52); Hemoglobin 12.2 g/dL (14.0-18.0); Lymphocytes # (auto) 1.42 K/uL (1.2-3.4); Lymphocytes % (auto) 14.4 %; Mean Corpuscular Hgb Conc 32.4 g/dL (32-36); Mean Platelet Volume 10.2 fL (7.4-10.4); Monocytes # (auto) 0.54 K/uL (0.11-0.59); Monocytes % (auto) 5.5 %; Neutrophils # (auto) 7.67 K/uL (1.4-6.5); Neutrophils % (auto) 78.1 %; Platelet Count 216 K/uL (130-400); RDW Standard Deviation 47.2 fL (36.4-46.3); White Blood Count 9.83 K/uL (4.8-10.8)
[2018-11-10 04:49] LABS: iSTAT Arterial Blood Gas HCO3 31 meg/L (19-24); iSTAT Arterial Blood Gas pCO2 62 mmHg (35-46); iSTAT Arterial Blood Gas pH 7.31 (7.35-7.45); iSTAT Carbon Dioxide 33 mEq/l (24-31)
[2018-11-10 05:00] LABS: Partial Thromboplastin Ratio 0.8; Partial Thromboplastin Time 21.7 Seconds (21.0-31.0); Prothrombin Time 10.7 Seconds (9.0-12.0)
--- NOTE | 2018-11-10 05:00 | History & Physical Report ---
Date of Service November 10, 2018 Assessment & Plan (1) Pneumonia: 68 y/o M Hx HTN, GERD, depression, dysphagia, suspected aspiration PNM. Presents with cough, fever, SOB. Disoriented/somnolent and hypoxic with an 02 sat of 65% on arrival to the ER. The pt's provides that he had been c oughing the prior evening. He had also complained of a headache x 2 days which was accompanied by an episode of nausea and vomiting. She went to sleep and woke up at 3:am and noted that he had fallen asleep in a chair with the front door open and half a sandwich on the porch. When she tried to wake him up, he remained somnolent and incoherent. She called EMS therefore. The pt has been admitted twice with PNM in 2019. He was advised on a swallow evaluation as aspiration was suspected but has not yet complied with this advice. The pt responded well to 02 and nebs, regaining his orientation. He was wearing an NRB with 10L 02 at the rime of admission. An initial ABG demonstrated a CO2 of 62 and a marginally elevated troponin. An EKG showed sinus tach and a CXR was unchanged, possibly demonstrating BL infiltrates. 1) PNM with AMS - hypoxic, hypercarbic and somnolent on arrival - has improved with 02. He is pending a CT as his CXR is unchanged. He is placed on Cefepime and Levaquin to cover HCAP and aspiration. He also received a dose of Vanc in the ER. Scheduled nebs and an 02 protocol provided. Sputum culture pending. 2) Dysphagia - he will be scheduled for a swallow eval which should completed prior to DC. He may also benefit from EGD although this can likely be pursued in the outpt setting. 3) HTN - cont Norvasc 4) GERD - cont Omeprazole 5) Depression - cont Effexor 6) Chronic back pain - cont Fentanyl 7) Headache reported - requested Tylenol which is provided Full code - Heparin prophylaxis Total time for this admit including review of labs, meds, imaging, records - discussion with pt and ER attending - 40 min Present on Admission?: Yes History of Present Illness Chief Complaint: Shortness of breath, cough Primary Care Provider: Jayy Hodges 68 y/o M Hx HTN, GERD, depression, dysphagia, suspected aspiration PNM. Presents with cough, fever, SOB. Disoriented/somnolent and hypoxic with an 02 sat of 65% on arrival to the ER. The pt's provides that he had been coughing the prior evening. He had also complained of a headache x 2 days which was accompanied by an episode of nausea and vomiting. She went to sleep and woke up at 3:am and noted that he had fallen asleep in a chair with the front door open and half a sandwich on the porch. When she tried to wake him up, he remained somnolent and incoherent. She called EMS therefore. The pt has been admitted twice with PNM in 2019. He was advised on a swallow evaluation as aspiration was suspected but has not yet complied with this advice. The pt responded well to 02 and nebs, regaining his orientation. He was wearing an NRB with 10L 02 at the rime of admission. An initial ABG demonstrated a CO2 of 62 and a marginally elevated troponin. An EKG showed sinus tach and a CXR was u nchanged, possibly demonstrating BL infiltrates. PMH: 1) Recurrent PNM - admitted 07/09 and 09/08 with pneumonia suspected due to aspiration 2) Troponin elevations during previous PNM episodes deemed demand-related - normal echo 08/2018 3) HTN 4) GERD 5) Depression 6) Dysphagia - this appears to be worsening per his and he is scheduled for an endoscopy in the coming month. 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 Does not drink alcohol. 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 Family: Father age 74 - Alzheimer's dementia Mother age 88 - breast CA Allergies Allergy/AdvReac Type Severity Reaction Status Date / Time bee venom protein (honey bee) Allergy Intermediate EXCESSIVE Verified 11/10/18 04:43 SWELLING AT SITE sulfamethoxazole Allergy Intermediate TONGUE Verified 11/10/18 04:43 SWELLS, WHITE BLISTERS IN MOUTH. trimethoprim Allergy Intermediate TONGUE Verified 11/10/18 04:43 SWELLS, WHITE BLISTERS IN MOUTH. adhesive Allergy Mild SKIN Verified 11/10/18 04:43 IRRITATION Bactrim Allergy Unknown . Unverified 07/23/15 11:07 morphine AdvReac Intermediate PROJECTILE Verified 11/10/18 04:43 VOMITING Home Medications Home Medications Medication Instructions Recorded Confirmed Type amlodipine 5 mg PO DAILY 06/26/18 11/10/18 History cyclobenzaprine 10 mg PO HS PRN 06/26/18 11/10/18 History fentanyl 1 patch TRANSDERMAL Q OTHER DAY 06/26/18 11/10/18 History gabapentin 600 mg PO BID 06/26/18 11/10/18 History meloxicam 7.5 mg PO DAILY 06/26/18 11/10/18 History omeprazole 20 mg PO BID 06/26/18 11/10/18 History venlafaxine [Effexor XR] 37.5 mg PO BID 06/26/18 11/10/18 History aspirin [Aspirin Low Dose] 81 mg PO DAILY #30 tab 09/11/18 11/10/18 Rx pramipexole 0 mg PO HS 11/10/18 11/10/18 History Past Med/Surg History Medical History Depression GERD (gastroesophageal reflux disease) Chronic back pain Hypertension No significant past medical history Hypoxia (Acute) Leukocytosis Surgical History No significant past surgical history Social History Preferred Language: Spanish Communication Ability: Effective Beliefs That Will Affect Care: None marital status: Current Living Situation: Spouse Feels Safe at Home: Yes Smoking Status: Unknown if ever smoked Hx Alcohol Use: No Hx Substance Use: No Review of Systems Review of Systems: Gen: Does not confirm fevers at home ENT: Denies congestion, throat pain, hearing loss Eyes: Denies acute visual changes CV: Denies CP, palpitations Pulmonary: Cough and progressive SOB GI: Denies N/V, diarrhea, constipation Neuro: Denies acute or unilateral weakness, acute gait impairment - describes a headache x 2 days Musculoskeletal: Denies joint pain, inflammation Endocrine: Denies polydipsia, polyuria Skin: Denies acute rashes or ulcers Physical Exam Physical Exam: General: Lethargic, middle-aged M, AAO x 3, no distress ENT: No erythema or exudates, no thrush Eyes: JEMMA, EOMI Head and neck: Normocephalic, atraumatic, No JVD, neck is supple. Chest/heart: Nontender, S1,2, RRR, no murmurs, no gallops Lungs: Minimal crackles at R base - air entry diminished Abdomen: Nontender, nondistended, BS+ Neuro: AAO x 3, speech is clear, no unilateral weakness or loss of sensation, coordination intact Musculoskeletal: No joint inflammation, muscle tenderness, FROM Skin: No acute rashes or ulcers Extremities: No clubbing, cyanosis, edema Results & Data Vital Signs (Past 12 Hours) Vital Signs Temp Pulse Resp BP Pulse Ox 11/10/18 04:46 102 H 23 90 11/10/18 04:45 103 H 24 120/81 90 11/10/18 04:32 109 H 23 145/90 H 100 11/10/18 04:30 108 H 23 100 11/10/18 04:20 110 H 23 96 11/10/18 04:19 111 H 23 140/85 95 11/10/18 04:17 100.8 F H 112 H 28 H 182/85 H 56 L 11/10/18 04:15 95 PG Care Time/CCT Total # of Minutes Spent Total Time Spent with Patient: Total time spent is greater than 50% in coordination of care (as documented) at patient's floor/unit and/or counseling patient:
[2018-11-10] MEDS ORDERED: FAMOTIDINE 20MG/5ML IV PUSH IV STA (05:05)
[2018-11-10] MEDS ORDERED: ALBUT/IPRATROP 3MG/0.5MG NEB 3 ML VIAL NEB STA (05:05)
[2018-11-10] MEDS ORDERED: SODIUM CHLORIDE 0.9% 1000ML 1,000 ML IV ONE (05:06)
[2018-11-10 05:09] LABS: Albumin Level 3.9 gm/dl (3.4-5.0); Calcium 8.2 mg/dl (8.5-10.1); Creatinine Clr Calc Pharmacy 66.5 ml/min; Est GFR (African American) 70.7; Magnesium 1.9 mg/dl (1.8-2.4); Potassium 4.1 mmol/L (3.5-5.1)
[2018-11-10 05:20] LABS: Bilirubin,Total 0.6 mg/dl (0.2-1); Globulin 3.9 gm/dl (2.5-4.0); Total Protein 7.8 gm/dl (6.4-8.2); Troponin I 0.072 ng/ml (0-0.045)
[2018-11-10] MEDS ORDERED: OPTIRAY 320 125ml IV PRN (05:58)
--- NOTE | 2018-11-10 06:53 | XRay Report ---
XR chest 1V portable CLINICAL HISTORY: Sepsis dyspnea COMPARISON STUDY: 09/10/2018 FINDINGS: Chronic elevation right hemidiaphragm. Mild stable cardiomegaly. Lungs are clear. No focal infiltrative process. IMPRESSION: No acute process. The above report was generated using voice recognition software. It may contain grammatical, syntax or spelling errors. Electronically signed by: Dario Virgen M.D. 11/10/2018 6:52 AM
--- NOTE | 2018-11-10 07:04 | CT Scan Report ---
CT angio chest PE protocol CT DOSE: 546.00 mGy.cm HISTORY: Dyspnea PE TECHNIQUE: Multiaxial CT images of the chest were performed following the intravenous administration of contrast to evaluate the pulmonary arteries. Maximal intensity projection images were also obtaine d. A dose lowering technique was utilized adhering to the principles of ALARA. COMPARISON STUDY: 09/08/2018 FINDINGS: There is a normal caliber thoracic aorta with no evidence for dissection. There is no evide nce for pulmonary embolus. No pleural effusions. No pneumothorax. The liver and spleen are unremarkab le. No mediastinal or hilar lymphadenopathy. The central airways are patent. The lungs are remarkable for scattered bibasilar parenchymal infiltrates IMPRESSION: 1. No evidence of pulmonary embolus. 2. Scattered bibasilar parenchymal infiltrates. 3. Mild hepatomegaly. The above report was generated using voice recognition software. It may contain grammatical, syntax or spelling errors. Electronically signed by: Dario Virgen M.D. 11/10/2018 7:03 AM
[2018-11-10] MEDS ORDERED: MAGNESIUM HYDROXIDE SUSP 30 ML UDC PO PRN (07:09)
[2018-11-10] MEDS ORDERED: ACETAMINOPHEN 325 MG TAB PO PRN (07:09)
[2018-11-10] MEDS ORDERED: ALBUTEROL 0.083% NEBU SOLN 3 ML VIAL NEB PRN (07:09)
[2018-11-10] MEDS ORDERED: ALUMINUM/MAGNESIUM SUSP 30 ML UDC PO PRN (07:09)
[2018-11-10] MEDS ORDERED: ONDANSETRON INJ 2 MG/ML 2 ML VIAL IV PRN (07:09)
[2018-11-10] MEDS: LACTATED RINGER'S 1,000 ML IV SCH ×2 (07:10→15:23)
[2018-11-10] MEDS: ALBUT/IPRATROP 3MG/0.5MG NEB 3 ML VIAL NEB SCH ×4 (07:23→19:04)
--- NOTE | 2018-11-10 08:13 | Emergency Department Note ---
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 The patients reports that he has been coughing, febrile, and more fatigued prior to arrival. She states yesterday she began to notice he had a slightly increased cough and appeared slightly more fatigued. She states he has had similar episodes previously and was diagnosed with pneumonia. Patient does not use home oxygen. Does not use home MDIs or nebulizer treatments. No other new sick contacts. She describes the patient being confused this morning with placing a sandwich outside stating it was for the dog, and finding the door open while the air conditioning was turned up. She reports that he was here last month for pneumonia where he came to the ED with an oxygen saturation of 75. She reports that he was discharged after 4 days. She states that the patient does not wear o xygen at home. The patient denies any phlegm with his cough; he denies any chills or chest pain. He reports that he has normal bowel movements and urination. The patients states that she has a swallow test that is scheduled for next month because he has been choking during when he eats. She st ates that the patient has a history of a heart attack. No other recent travel or sick contacts. I was called by nurse from triage the patient was being brought back immediately to room B1 as his oxygen saturation in triage was in the 50s with a good waveform and patient seemed lethargic and confused. Pt sat's in B1 64% initially. Home Medications Home Medications Medication Instructions Recorded Confirmed Type amlodipine 5 mg PO DAILY 06/26/18 11/10/18 History cyclobenzaprine 10 mg PO HS PRN 06/26/18 11/10/18 History fentanyl 1 patch TRANSDERMAL Q OTHER DAY 06/26/18 11/10/18 History gabapentin 600 mg PO BID 06/26/18 11/10/18 History meloxicam 7.5 mg PO DAILY 06/26/18 11/10/18 History omeprazole 20 mg PO BID 06/26/18 11/10/18 History venlafaxine [Effexor XR] 37.5 mg PO BID 06/26/18 11/10/18 History aspirin [Aspirin Low Dose] 81 mg PO DAILY #30 tab 09/11/18 11/10/18 Rx pramipexole 0 mg PO HS 11/10/18 11/10/18 History Allergies Allergy/AdvReac Type Severity Reaction Status Date / Time bee venom protein (honey bee) Allergy Intermediate EXCESSIVE Verified 11/10/18 04:43 SWELLING AT SITE sulfamethoxazole Allergy Intermediate TONGUE Verified 11/10/18 04:43 SWELLS, WHITE BLISTERS IN MOUTH. trimethoprim Allergy Intermediate TONGUE Verified 11/10/18 04:43 SWELLS, WHITE BLISTERS IN MOUTH. adhesive Allergy Mild SKIN Verified 11/10/18 04:43 IRRITATION Bactrim Allergy Unknown . Unverified 07/23/15 11:07 morphine AdvReac Intermediate PROJECTILE Verified 11/10/18 04:43 VOMITING Past Med/Surg History Medical History Depression GERD (gastroesophageal reflux disease) Chronic back pain Hypertension No significant past medical history Hypoxia (Acute) Leukocytosis Surgical History No significant past surgical history Social History Preferred Language: Romanian Communication Ability: Effective Family Law Attorney Required: No Beliefs That Will Affect Care: None marital status: Current Living Situation: Spouse Other Information That Helps Us Care for You: No Feels Safe at Home: Yes Safety Concerns: Feels Safe At This Time Smoking Status: Current every day smoker Tobacco Type: cigarettes Do You Dip or Chew Tobacco: No Second Hand Exposure: No Tobacco Cessation Education Requested by Patient: No Hx Alcohol Use: No Hx Substance Use: No Review of Systems See HPI for pertinent positives & negatives. and A total of 10 systems reviewed and were otherwise negative Physical Exam Vital Signs Vital Signs - 24 hr 11/10/18 05:00 11/10/18 05:15 11/10/18 05:16 Temperature Pulse Rate 104 H 101 H Pulse Rate [Right Radial] 101 H Pulse Rate from SpO2 Sensor 105 H 101 H Respiratory Rate 21 18 22 Respiratory Effort / Characteristics Non-Labored Spontaneous Blood Pressure 132/80 126/75 Blood Pressure Mean 97 92 Pulse Oximetry 91 92 93 Oxygen Delivery Method Oxymask Oxymask Oxygen Flow Rate 6 6 6 11/10/18 05:30 11/10/18 06:02 11/10/18 06:16 Temperature 37.4 C Pulse Rate 102 H 95 H 95 H Pulse Rate [Right Radial] Pulse Rate from SpO2 Sensor 99 H 94 H 95 H Respiratory Rate 21 22 24 Respiratory Effort / Characteristics Blood Pressure 121/75 120/66 115/67 Blood Pressure Mean 90 84 83 Pulse Oximetry 96 92 92 Oxygen Delivery Method Oxygen Flow Rate 6 6 6 GENERAL: alert, ill appearing, well nourished, no distress, non-toxic, mild cyanosis, tachypnea EYE EXAM: normal conjunctiva, PERRL and EOM's grossly intact OROPHARYNX: no exudate, no erythema, lips, buccal mucosa, and tongue normal and mucous membranes are moist NECK: supple, no nuchal rigidity, no adenopathy, non-tender LUNGS: Decreased breath sounds at right base. Faint rales at right base. Normal chest wall mechanics. Increased work of breathing. Oxygen saturations improved after application of nonrebreather at 15 L/min. Within 5 to 8 minutes, oxygen saturations were at 90%. Color improved upon improved oxygenation. HEART: no murmurs, S1 normal and S2 normal ABDOMEN: abdomen soft, non-tender, normo-active bowel sounds, no masses, no rebound or guarding. BACK: Back is symmetrical on inspection and there is no deformity, no midline tenderness, no CVA tenderness. SKIN: no rashes and no bruising, no petechiae UPPER EXTREMITIES: upper extremities are grossly normal. FROM, nml pulses b/l. LOWER EXTREMITIES: No pitting edema. FROM, nml pulses b/l. NEURO EXAM: Normal sensorium. Somnolent, but arousable to voice. Can answer simple questions. Follows commands, opens eyes to voice. Moving all 4 extremities spontaneously. Course 0415: ED: The patient was evaluated in room B1, and a complete history and physical examination were performed. 0452: I reevaluated the patient, his heart rate is slightly improved. The patient's oxygen saturation is at 91% on 10 liters via oxygen mask. 0526: I reviewed the patient's case with Dr. Brothers [facility] Hospitalist. He will evaluate the patient for further management. 0600: The patient's vital signs have improved and the patient is answering questions appropriately. The patient's oxygen saturation is 92% on oxygen mask. 0645: Pt stable here. 92% on oxymask. Consultations Consultation #1: Dr. Brothers [facility] Hospitalist Time: 05:26 Administered Medications Acetaminophen (Tylenol) 650 mg PO Q4H PRN PRN Reason: Pain or Fever Stop: 12/10/18 07:08 Last Admin: 11/10/18 16:52 Dose: 650 mg Documented by: [id number] Albuterol (Duoneb) 3 ml NEB QIDR [facility] Stop: 12/10/18 07:59 Last Admin: 11/10/18 19:04 Dose: 3 ml Documented by: [id number] Admin: 11/10/18 15:12 Dose: 3 ml Documented by: [id number] Admin: 11/10/18 11:21 Dose: 3 ml Documented by: [id number] Admin: 11/10/18 07:23 Dose: Not Given Documented by: [id number] Amlodipine Besylate (Norvasc) 5 mg PO DAILY [facility] Stop: 12/10/18 08:59 Last Admin: 11/10/18 10:10 Dose: 5 mg Documented by: [id number] Aspirin (Ecotrin Ectab) 81 mg PO DAILY [facility] Stop: 12/10/18 08:59 Last Admin: 11/10/18 10:10 Dose: 81 mg Documented by: [id number] Cyclobenzaprine HCl (Flexeril) 10 mg PO HS PRN PRN Reason: Muscle Spasm Stop: 12/10/18 07:08 Last Admin: 11/10/18 21:11 Dose: 10 mg Documented by: [id number] Gabapentin (Neurontin) 600 mg PO BID [facility] Stop: 12/10/18 08:59 Last Admin: 11/10/18 21:12 Dose: 600 mg Documented by: [id number] Admin: 11/10/18 10:10 Dose: 600 mg Documented by: [id number] Heparin Sodium (Porcine) (Heparin Sodium (Porcine)) 5,000 units SQ Q8 [facility] Stop: 12/10/18 07:08 Last Admin: 11/10/18 16:47 Dose: 5,000 units Documented by: [id number] Cosigned by: [id number] Admin: 11/10/18 10:08 Dose: 5,000 units Documented by: [id number] Cosigned by: [id number] Lactated Ringer's (Lr) 1,000 mls @ 80 mls/hr IV .[id number] [facility] Stop: 12/10/18 07:08 Last Admin: 11/11/18 03:39 Dose: 80 mls/hr Documented by: [id number] Infusion: 11/11/18 03:38 Dose: 0 mls/hr Documented by: [id number] Admin: 11/10/18 15:23 Dose: 80 mls/hr Documented by: [id number] Infusion: 11/10/18 15:23 Dose: 80 mls/hr Documented by: [id number] Infusion: 11/10/18 15:22 Dose: 80 mls/hr Documented by: [id number] Admin: 11/10/18 07:10 Dose: 125 mls/hr Documented by: [id number] Cefepime HCl 1,000 mg/ Syringe 11.3 mls @ 5.5 mls/min IV Q8H [facility]; Protocol Stop: 11/17/18 11:59 Last Admin: 11/10/18 21:13 Dose: 5.5 mls/min Documented by: [id number] Admin: 11/10/18 12:53 Dose: 5.5 mls/min Documented by: [id number] Vancomycin HCl 1,250 mg/ (Sodium Chloride) 275 mls @ 125 mls/hr IV Q12H [facility] Stop: 11/17/18 16:59 Last Infusion: 11/10/18 19:00 Dose: 0 mls/hr Documented by: [id number] Admin: 11/10/18 16:46 Dose: 125 mls/hr Documented by: [id number] Ioversol (Optiray 320 125ml) 98 ml IV ONCE PRN PRN Reason: Interaction Checking Stop: 11/14/18 05:57 Last Admin: 11/10/18 05:59 Dose: 98 ml Documented by: [id number] Meloxicam (Mobic) 7.5 mg PO DAILY [facility] Stop: 12/10/18 08:59 Last Admin: 11/10/18 10:10 Dose: 7.5 mg Documented by: [id number] Miscellaneous (Fentanyl Patch Check Placement) 1 ea N/A QS [facility] Stop: 12/11/18 00:00 Last Admin: 11/11/18 00:02 Dose: 1 ea Documented by: [id number] Pantoprazole Sodium (Protonix) 40 mg PO BID [facility] Stop: 12/10/18 08:59 Last Admin: 11/10/18 21:12 Dose: 40 mg Documented by: [id number] Admin: 11/10/18 10:11 Dose: 40 mg Documented by: [id number] Pramipexole Dihydrochloride (Mirapex) 0.125 mg PO HS [facility] Stop: 12/10/18 20:59 Last Admin: 11/10/18 21:11 Dose: 0.125 mg Documented by: [id number] Venlafaxine HCl (Effexor Extended Release) 37.5 mg PO BID [facility] Stop: 12/10/18 08:59 Last Admin: 11/10/18 21:12 Dose: 37.5 mg Documented by: [id number] Admin: 11/10/18 10:11 Dose: 37.5 mg Documented by: [id number] Discontinued Medications Albuterol (Duoneb) 3 ml NEB NOW STA Stop: 11/10/18 05:06 Last Admin: 11/10/18 05:13 Dose: 3 ml Documented by: [id number] Famotidine (Pepcid 20mg Iv Push) 20 mg IV ONE STA Stop: 11/10/18 05:06 Last Admin: 11/10/18 05:38 Dose: 20 mg Documented by: [id number] Sodium Chloride (Nss 1000ml) 1,000 mls @ 999 mls/hr IV .Q1H1M [facility] Stop: 11/10/18 05:30 Last Infusion: 11/10/18 05:34 Dose: 0 mls/hr Documented by: [id number] Admin: 11/10/18 04:40 Dose: 999 mls/hr Documented by: [id number] Acetaminophen (Ofirmev) 1,000 mg in 100 mls @ 400 mls/hr IV NOW STA Stop: 11/10/18 04:43 Last Infusion: 11/10/18 04:53 Dose: 0 mls/hr Documented by: [id number] Admin: 11/10/18 04:39 Dose: 400 mls/hr Documented by: [id number] Vancomycin HCl 2,000 mg/ (Sodium Chloride) 540 mls @ 200 mls/hr IV NOW ONE; Protocol Stop: 11/10/18 07:11 Last Infusion: 11/10/18 06:54 Dose: 0 mls/hr Documented by: [id number] Admin: 11/10/18 04:44 Dose: 200 mls/hr Documented by: [id number] Cefepime HCl (Maxipime) 2,000 mg in 20 mls @ 5 mls/min IV NOW STA; Protocol Stop: 11/10/18 04:33 Last Admin: 11/10/18 04:40 Dose: 5 mls/min Documented by: [id number] Levofloxacin/Dextrose (Levaquin/D5w) 750 mg in 150 mls @ 100 mls/hr IV Q24H [facility] Stop: 11/12/18 04:44 Last Infusion: 11/10/18 06:04 Dose: 0 mls/hr Documented by: [id number] Admin: 11/10/18 04:41 Dose: 100 mls/hr Documented by: [id number] Sodium Chloride (Nss 1000ml) 1,000 mls @ 999 mls/hr IV .Q1H1M ONE Stop: 11/10/18 06:06 Last Infusion: 11/10/18 06:24 Dose: 0 mls/hr Documented by: [id number] Admin: 11/10/18 05:38 Dose: 999 mls/hr Documented by: [id number] Miscellaneous Information (Consult) 1 ea N/A UD ONE Stop: 11/10/18 04:31 Last Admin: 11/10/18 04:54 Dose: 1 ea Documented by: [id number] Medical Decision Making Differential Diagnosis Differential diagnosis: Etiologies such as infections, reactive airway disease, pneumonia, pneumothorax, COPD, CHF, cardiac ischemia, pulmonary embolism, musculoskeletal, gastrointestinal, viral syndrome, otitis, pharyngitis, pneumonia, influenza, meningitis, urinary tract infection, sepsis, bacteremia, as well as others were entertained. Medical Records Attestation: I reviewed the patient's medical records. Home Medications Current Medication List: was personally reviewed by me Laboratory Data Attestation: I reviewed the patient's lab results. Result diagrams: 11/10/18 04:27 11/10/18 04:27 Lab Results 11/10/18 11/10/18 11/10/18 Range/Units 04:27 04:27 04:27 WBC 9.83 (4.8-10.8) K/uL RBC 4.10 L (4.7-6.1) M/uL Hgb 12.2 L (14.0-18.0) g/dL Hct 37.7 L (42-52) % MCV 92.0 (80-100) fL MCH 29.8 (25-34) pg MCHC 32.4 (32-36) g/dL RDW Std Deviation 47.2 H (36.4-46.3) fL RDW Coeff of Netta 14.0 (11.5-14.5) % Plt Count 216 (130-400) K/uL MPV 10.2 (7.4-10.4) fL Immature Gran % (Auto) 1.0 % Neut % (Auto) 78.1 % Lymph % (Auto) 14.4 % Baldwin % (Auto) 5.5 % Eos % (Auto) 0.7 % Baso % (Auto) 0.3 % Immature Gran # (Auto) 0.10 H (0.00-0.02) K/uL Neut # (Auto) 7.67 H (1.4-6.5) K/uL Lymph # (Auto) 1.42 (1.2-3.4) K/uL Baldwin # (Auto) 0.54 (0.11-0.59) K/uL Eos # (Auto) 0.07 (0-0.5) K/uL Baso # (Auto) 0.03 (0-0.2) K/uL PT 10.7 (9.0-12.0) Seconds INR 1.0 (0.9-1.1) APTT 21.7 (21.0-31.0) Seconds PTT Ratio 0.8 POC pH (7.35-7.45) POC pCO2 (35-46) mmHg POC pO2 (80-95) mmHg POC HCO3 (19-24) sharlene/L POC Total CO2 (24-31) mEq/l POC Base Excess (-9-1.8) sharlene/L POC ABG O2 Sat (90-95) % Sodium 135 L (136-145) mmol/L Potassium 4.1 (3.5-5.1) mmol/L Chloride 100 (98-107) mmol/L Carbon Dioxide 31 (21-32) mmol/L Anion Gap 4.0 (3-11) BUN 20 H (7-18) mg/dl Creatinine 1.22 (0.6-1.4) mg/dl Est Cr Clr Drug Dosing 66.5 ml/min Est GFR ( Amer) 70.7 Est GFR (Non-Af Amer) 61.0 BUN/Creatinine Ratio 16.0 (10-20) Glucose 130 H (70-99) mg/dl Calcium 8.2 L (8.5-10.1) mg/dl Magnesium 1.9 (1.8-2.4) mg/dl Total Bilirubin 0.6 (0.2-1) mg/dl AST 38 H (15-37) U/L ALT 31 (12-78) U/L Alkaline Phosphatase 74 (45-117) U/L Troponin I 0.072 H* (0-0.045) ng/ml NT-Pro-B Natriuret Pep 3271 H (0-900) pg/ml Total Protein 7.8 (6.4-8.2) gm/dl Albumin 3.9 (3.4-5.0) gm/dl Globulin 3.9 (2.5-4.0) gm/dl Albumin/Globulin Ratio 1.0 (0.9-2) Procalcitonin (0-0.5) ng/ml Specimen Hemolysis 11/10/18 11/10/18 Range/Units 04:27 04:34 WBC (4.8-10.8) K/uL RBC (4.7-6.1) M/uL Hgb (14.0-18.0) g/dL Hct (42-52) % MCV (80-100) fL MCH (25-34) pg MCHC (32-36) g/dL RDW Std Deviation (36.4-46.3) fL RDW Coeff of Netta (11.5-14.5) % Plt Count (130-400) K/uL MPV (7.4-10.4) fL Immature Gran % (Auto) % Neut % (Auto) % Lymph % (Auto) % Baldwin % (Auto) % Eos % (Auto) % Baso % (Auto) % Immature Gran # (Auto) (0.00-0.02) K/uL Neut # (Auto) (1.4-6.5) K/uL Lymph # (Auto) (1.2-3.4) K/uL Baldwin # (Auto) (0.11-0.59) K/uL Eos # (Auto) (0-0.5) K/uL Baso # (Auto) (0-0.2) K/uL PT (9.0-12.0) Seconds INR (0.9-1.1) APTT (21.0-31.0) Seconds PTT Ratio POC pH 7.31 L (7.35-7.45) POC pCO2 62 H (35-46) mmHg POC pO2 98 H (80-95) mmHg POC HCO3 31 H (19-24) sharlene/L POC Total CO2 33 H (24-31) mEq/l POC Base Excess 5.0 H (-9-1.8) sharlene/L POC ABG O2 Sat 97.0 H (90-95) % Sodium (136-145) mmol/L Potassium (3.5-5.1) mmol/L Chloride (98-107) mmol/L Carbon Dioxide (21-32) mmol/L Anion Gap (3-11) BUN (7-18) mg/dl Creatinine (0.6-1.4) mg/dl Est Cr Clr Drug Dosing ml/min Est GFR ( Amer) Est GFR (Non-Af Amer) BUN/Creatinine Ratio (10-20) Glucose (70-99) mg/dl Calcium (8.5-10.1) mg/dl Magnesium (1.8-2.4) mg/dl Total Bilirubin (0.2-1) mg/dl AST (15-37) U/L ALT (12-78) U/L Alkaline Phosphatase (45-117) U/L Troponin I (0-0.045) ng/ml NT-Pro-B Natriuret Pep (0-900) pg/ml Total Protein (6.4-8.2) gm/dl Albumin (3.4-5.0) gm/dl Globulin (2.5-4.0) gm/dl Albumin/Globulin Ratio (0.9-2) Procalcitonin < 0.05 (0-0.5) ng/ml Specimen Hemolysis Imaging Data Attestation: I personally reviewed and interpreted this imaging study as follows: My Impression: Chest XRay: No cardiomegaly, no effusions, elevated right hemidiaphragm, no wide mediastinum, no acute pulmonary edema. Radiologist's Impression: Radiology results as stated below per my review and the radiologist's interpretation: CTA CHEST: NO PE. Possible small infiltrate in the lingula. Radiologist: Raudel Mejia MD. Study ready at 0612 and initial results transmitted at 0647 ECG Data Attestation: I personally reviewed and interpreted this ECG as follows: Indication: SOB/dyspnea Rate (beats per minute): 108 Rhythm: sinus tachycardia Findings: + other (normal axis and intervals, baseline artifact noted) and + T- wave inversion (lead 3, v2, v3) Blood Pressure Blood Pressure Findings: Normal blood pressure Blood Pressure Disposition: did not require urgent referral MDM Narrative Upon patient's presentation in the ED he was immediately rushed back to room B1 from triage due to significant hypoxia noted and apparent cyanosis and altered mental state. A nonrebreather mask at 15 L/min was initially applied and his sats slowly began to improve. Labs drawn and IV started, and a stat portable chest x-ray was called for while this is all being done. Patient's EKG did not reveal any acute ST elevation. Chest x-ray did not reveal large pleural effusion,large infiltrate, or acute pulmonary edema. Patient was febrile in triage and so a possible sepsis evaluation was started. As his labs began to return, they were reassuring including procalcitonin and lactic acid. Patient was found to have an elevated troponin which is likely secondary to his hypoxia, increased work of breathing, infection, and cardiac demand. Patient has previously had elevated troponins and this level is lower compared to prior. I do not suspect primary ACS although patient does have risk factors for such. After patient stabilized and continued to improve, patient sent for CT imaging of the chest. No PE, no pericardial effusion. Patient remained stable here. Patient was covered with IV antibiotics in case of healthcare associated pneumonia given recent admission within the last 60 days. Patient was also given nebulizer treatments due to his prior tobacco abuse. No evidence of anemi a. Patient continued to report improvement with improved oxygenation, IV fluids, and fever control. No evidence of septic shock, patient initially had 2 L of IV fluids in addition to the IV fluids infused with his antibiotics and them. These were then slowed to a maintenance rate as patient was never hypotensive. No need for pressors. Impression & Plan Sepsis, Pneumonia, Hypoxia, Hypercapnia, Non-ST elevation CA (NSTEMI), Elevated brain natriuretic peptide (BNP) level Critical Care Time Critical Care Time: Yes Total Critical Care Time: 75 I have personally spent 75 minutes of critical care time in the direct management of this patient. This includes bedside care, interpretation of diagnostic studies, and testing, discussion with consultants, patient, and family members, and other required patient management activities. This 75 minutes is in excess of all separately billable procedures. Discharge Plan Visit Data *Final* Discharge Date/Time: 11/10/18 06:54 Chief Complaint: Illness Stated Complaint: O2 LEVEL DOWN, CONFUSION, WEAKNESS ED Provider: Alyssa Pedraza Discharge Problem: Sepsis, Pneumonia, Hypoxia, Hypercapnia, Non-ST elevation CA (NSTEMI), Elevated brain natriuretic peptide (BNP) level Patient Disposition: Admitted As Inpatient Discharge Instructions Interventions: ED Discharge Assessment Last Done: 11/10/18 06:54 Discharge Problem: Sepsis Qualifiers: Sepsis type: sepsis due to unspecified organism Qualified Code(s): A41.9 - Sepsis, unspecified organism Pneumonia Qualifiers: Pneumonia type: due to unspecified organism Laterality: left Lung location: upper lobe of lung Qualified Code(s): J18.1 - Lobar pneumonia, unspecified organism The scribe's documentation has been prepared under my direction and personally reviewed by me in its entirety. I confirm that the note above accurately reflects all work, treatment, procedures, and medical decision making performed by me.
--- NOTE | 2018-11-10 09:16 | Pharmacy Report ---
Pharmacy Abx Initial Consult - Date of Service November 10, 2018 - Pharmacy Dosing Scope Date of Consult: 11/10/18 Consultation requested by: Dr. Johnson Pharmacy is consulted to initiate Vancomycin IV dosing therapy, order appropriate labs and adjust drug dose/frequency. - Subjective The patient is a 68 year old M admitted on 11/10/18 06:17. - Objective Height: 5 ft 8 in Weight: 97.4 kg Vital Signs (Past 12hrs): Vital Signs Temp Pulse Pulse Resp BP Pulse Ox 11/10/18 06:45 85 18 110/70 94 11/10/18 06:30 91 H 19 111/67 95 11/10/18 06:16 95 H 24 115/67 92 11/10/18 06:02 37.4 C 95 H 22 120/66 92 11/10/18 05:30 102 H 21 121/75 96 11/10/18 05:16 101 H 22 93 11/10/18 05:15 101 H 18 126/75 92 11/10/18 05:00 104 H 21 132/80 91 11/10/18 04:46 102 H 23 90 11/10/18 04:45 103 H 24 120/81 90 11/10/18 04:32 109 H 23 145/90 H 100 11/10/18 04:30 108 H 23 100 11/10/18 04:20 110 H 23 96 11/10/18 04:19 111 H 23 140/85 95 11/10/18 04:17 38.2 C H 112 H 28 H 182/85 H 56 L Lab Results (24hrs): Laboratory Tests (24 Hours) 11/10/18 11/10/18 11/10/18 04:27 04:27 04:27 WBC 9.83 Neut # (Auto) 7.67 H Creatinine 1.22 Est Cr Clr Drug Dosing 66.5 Procalcitonin < 0.05 Micro Results: 11/10/18 04:30 Aerobic Blood Culture - Pending Blood Anaerobic Blood Culture - Pending 11/10/18 04:27 Aerobic Blood Culture - Pending Blood Anaerobic Blood Culture - Pending - Risk Factors for Resistance * Hospitalization for 48 hours or more within the past 90 days - Assessment & Plan Assessment 68 year old M with history of recurrent pneumonia (admitted 06/27-07/05 and 09/08- 09/11) with suspected aspiration presented to the ED via EMS. He presents with cough, fever, SOB (O2 sat in ED 65%), and AMS. CXR unremarkable, but CT shows scattered bibasilar parenchymal infiltrates. Procal negative. MRSA Swab pending Sputum and blood cultures pending Plan Vancomycin for treatment of pneumonia (HAP? aspiration?) Vancomycin IV * Estimated PK Parameters: Vd 0.7 L/kg, Sylvester 0.06 hr-1, t1/2 11.5 hr * Loading dose: 2000 mg (20.5 mg/kg) x1 dose given in the ED. * Maintenance dose: 1250 mg IV (12.8 mg/kg) every 12 hours * Goal trough level : 15 to 20 mcg/mL * Trough/Random level ordered for 11/12/18 before 0500 dose should be reflective of css. Cefepime and Levaquin * Pharmacy not consulted but doses appropriate for indication and renal function. Pharmacy will continue to follow and will adjust dose/frequency as necessary. Thank you.
[2018-11-10] MEDS: HEPARIN SOD 5,000 UNIT/0.5 ML VIAL SQ SCH ×3 (10:08→23:30)
[2018-11-10] MEDS: MELOXICAM 7.5 MG TAB PO SCH (10:10)
[2018-11-10] MEDS: GABAPENTIN 600 MG TAB PO SCH ×2 (10:10→21:12)
[2018-11-10] MEDS: ASPIRIN 81 MG ECTAB PO SCH (10:10)
[2018-11-10] MEDS: AMLODIPINE BESYLATE 5 MG TAB PO SCH (10:10)
[2018-11-10] MEDS: VENLAFAXINE HCL XR 37.5 MG CAPXR PO SCH ×2 (10:11→21:12)
[2018-11-10] MEDS: PANTOprazole 40 MG TAB PO SCH ×2 (10:11→21:12)
[2018-11-10 10:49] LABS: Appearance Urine Clear (Clear); Bilirubin Urine Negative (Negative); Blood Urine Negative (Negative); Color Urine Yellow; Glucose Urine UA Negative (Negative); Ketones Urine Negative (Negative); Leukocyte Esterase Urine Negative (Negative); Nitrite Urine Negative (Negative); Protein Urine Negative (Negative); Specific Gravity Urine > 1.045 (1.000-1.030); Urobilinogen Urine Negative (Negative); pH Urine 5.5 (4.5-7.5)
[2018-11-10] MEDS: CEFEPIME 1,000 MG in SYRINGE 0 ML IV SCH ×2 (12:53→21:13)
--- NOTE | 2018-11-10 14:47 | Communication Note ---
Date of Service: November 10, 2018 Pt. was admitted for pneumonia -- has improved clinically since admission. O2 saturation stable on 6L via Oxymask. Hemodynamically stable. Speech therapy evaluated pt. -- recommended only ice chips and sips with video swallow on Sunday. Trending troponin -- now improving. No cardiac symptoms are present. Will continue to follow.
[2018-11-10] MEDS: VANCOMYCIN HCL 1,250 MG in SODIUM CHLORIDE 0.9% 250 ML IV SCH (16:46)
[2018-11-10] MEDS: ACETAMINOPHEN 325 MG TAB PO PRN (16:52)
[2018-11-10] MEDS: PRAMIPEXOLE DIHYDROCHLO 0.25 MG TAB PO SCH (21:11)
[2018-11-10] MEDS: CYCLOBENZAPRINE HCL 10 MG TAB PO PRN (21:11)
[2018-11-11] MEDS: CHECK FENTANYL PATCH PLACEMENT SCH ×4 (00:02→23:31)
[2018-11-11] MEDS: LACTATED RINGER'S 1,000 ML IV SCH ×2 (03:39→15:27)
[2018-11-11] MEDS: CEFEPIME 1,000 MG in SYRINGE 0 ML IV SCH ×2 (04:55→12:02)
[2018-11-11] MEDS ORDERED: LEVOFLOXACIN/D5W 750 MG/150 ML BAG IV SCH (05:00)
[2018-11-11] MEDS: VANCOMYCIN HCL 1,250 MG in SODIUM CHLORIDE 0.9% 250 ML IV SCH (05:01)
[2018-11-11] MEDS: ACETAMINOPHEN 325 MG TAB PO PRN (05:22)
[2018-11-11] MEDS: HEPARIN SOD 5,000 UNIT/0.5 ML VIAL SQ SCH ×3 (06:41→20:18)
[2018-11-11 06:51] LABS: Hematocrit (blood only) 36.1 % (42-52); Hemoglobin 11.5 g/dL (14.0-18.0); Mean Corpuscular Hgb Conc 31.9 g/dL (32-36); Mean Corpuscular Volume 92.8 fL (80-100); Mean Platelet Volume 9.5 fL (7.4-10.4); Platelet Count 180 K/uL (130-400); RDW Coefficient of Variation 14.1 % (11.5-14.5); RDW Standard Deviation 47.3 fL (36.4-46.3); Red Blood Count 3.89 M/uL (4.7-6.1)
[2018-11-11] MEDS: ALBUT/IPRATROP 3MG/0.5MG NEB 3 ML VIAL NEB SCH ×4 (07:19→19:33)
[2018-11-11 07:21] LABS: BUN Creatinine Ratio 11.7 (10-20); Calcium 8.4 mg/dl (8.5-10.1); Creatinine Clr Calc Pharmacy 91.6 ml/min; Est GFR (Non-African American) 88.9; Potassium 4.1 mmol/L (3.5-5.1)
--- NOTE | 2018-11-11 08:41 | Hospitalist Progress Note ---
Date of Service November 11, 2018 Assessment & Plan (1) Pneumonia: 68 y/o M with acute metabolic encephalopathy Hx HTN, GERD, depression, dysphagia, suspected aspiration PNM. Presents with cough, fever, SOB. Disoriented/somnolent and Acute respiratory failure with hypoxia with suspected aspiration pneumonia and an 02 sat of 65% on arrival to the ER. The pt's provides that he had been coughing the prior evening. He had also complained of a headache x 2 days which was accompanied by an episode of nausea and vomiting. She went to sleep and woke up at 3:am and noted that he had fallen asleep in a chair with the front door open and half a sandwich on the porch. When she tried to wake him up, he remained somnolent and incoherent. She called EMS therefore. The pt has been admitted twice with PNM in 2019. He was advised on a swallow evaluation as aspiration was suspected but has not yet complied with this advice. The pt responded well to 02 and nebs, regaining his orientation. He was wearing an NRB with 10L 02 at the rime of admission. An initial ABG demonstrated a CO2 of 62 and a marginally elevated troponin. An EKG showed sinus tach and a CXR was unchanged, possibly demonstrating BL infiltrates. Pneumonia with metabolic encephalopathy- hypoxic, hypercarbic and somnolent on arrival - has improved with 02. He is pending a CT as his CXR is unchanged. MRSA nasal swab is negative vancomycin stopped to be transitioned to Unasyn therapy scheduled nebs and an 02 protocol provided. Sputum culture pending. Dysphagia -swallowing studies not show any overt signs or risk of aspiration is teach good swallowing techniques Demand ischemia, chronic elevation of Troponin HTN - cont Norvasc GERD - cont Omeprazole Depression - cont Effexor Chronic back pain - cont Fentanyl Headache reported - requested Tylenol which is provided Full code - Heparin prophylaxis Subjective Patient is slightly sedate overall still feeling sick denies any surreptitious medication use is sedate him to create swallowing issues but does note he does have coughing when he does swallow Review of Systems Review of Systems: ROS: well nourished well developed feeling fatigued and tired. No double vision blurry vision No problems with speech occasional issues with swallowing No palpitations, chest pain or pressure No Wheezing persistent occasional coughing No abdominal pain nausea vomiting diarrhea changes in appetite or weight No burning urine urine frequency or changes in color No focal joint pain or muscle pain No skin rashes or oral lesions No unusual bruising or bleeding No focused back pain or numbness or loss of strength No changes in memory or confusion Physical Exam Physical Exam: The patient appeared fatigued wants to sleep Vital signs as documented. Head exam is unremarkable. normocephalic, atraumatic Neck is without jugular venous distension, thyromegaly, or lymphademopathy Lungs are coarse rhonchi bibasilar right greater than left no wheezes no focal air loss Cardiac exam reveals Rhythm is regular. First and second heart sounds normal. Abdominal exam reveals normal bowel sounds, no masses, no organomegaly Extremities are nonedematous and both pedal pulses are present Neurologic exam is A&Ox3, no focal deficits, strength is equal bilateral Psychologically seems neither anxious or depressed Skin is warm Dry without bruises or lesions Results & Data Vital Signs (Past 12 Hours) Vital Signs Temp Pulse Resp BP Pulse Ox 11/11/18 07:19 84 18 94 11/11/18 07:10 36.7 C 65 18 144/81 H 94 11/11/18 04:00 36.7 C 82 19 125/76 97 11/10/18 23:10 36.6 C 85 19 156/83 H 95 PG Care Time/CCT Total # of Minutes Spent Total Time Spent with Patient: Total time spent is greater than 50% in coordination of care (as documented) at patient's floor/unit and/or counseling patient:
[2018-11-11] MEDS: fentaNYL 100 MCG/HR TDSY TD SCH (09:01)
[2018-11-11] MEDS: MELOXICAM 7.5 MG TAB PO SCH (09:02)
[2018-11-11] MEDS: ASPIRIN 81 MG ECTAB PO SCH (09:02)
[2018-11-11] MEDS: AMLODIPINE BESYLATE 5 MG TAB PO SCH (09:02)
[2018-11-11] MEDS: PANTOprazole 40 MG TAB PO SCH ×2 (09:02→20:14)
[2018-11-11] MEDS: GABAPENTIN 600 MG TAB PO SCH ×2 (09:02→20:15)
[2018-11-11] MEDS: VENLAFAXINE HCL XR 37.5 MG CAPXR PO SCH ×2 (09:03→20:14)
[2018-11-11 10:50] LABS: Amphetamines+Metham, Urine Neg (Neg); Barbiturates, Urine Pos (Neg); Benzodiazepine, Urine Neg (Neg); Cocaine, Urine Neg (Neg); MDMA (Ecstacy), Urine Neg (Neg); Methadone, Urine Neg (Neg); Opiate, Urine Neg (Neg); Phencyclidine, Urine Neg (Neg)
--- NOTE | 2018-11-11 15:04 | Fluoroscopy Report ---
FL video swallow HISTORY: Aspiration assess for aspiration TECHNIQUE: Video fluoroscopic evaluation of swallowing was performed in the AP and lateral projection s by the speech pathology staff. The patient is fed nectar-thick and thin liquid barium, a barium coa jonny wafer, and barium pudding. FLUOROSCOPY TIME: 2.5 minutes NUMBER OF FLUOROSCOPIC IMAGES: 67 COMPARISON STUDY: None. FINDINGS: Trace penetration. No evidence for zhen aspiration. Moderate esophageal dysmotility IMPRESSION: 1. No aspiration identified. Trace penetration. Moderate esophageal dysmotility 2. Please see the speech pathologist report for detailed findings and recommendations. The above report was generated using voice recognition software. It may contain grammatical, syntax or spelling errors. Electronically signed by: Dario Virgen M.D. 11/11/2018 3:03 PM
[2018-11-11] MEDS: AMPICILLIN/SULBACTAM SOD 3,000 MG in 0.9 % SODIUM CHLORIDE 100 ML IV SCH ×2 (15:26→20:14)
[2018-11-11] MEDS: PRAMIPEXOLE DIHYDROCHLO 0.25 MG TAB PO SCH (20:15)
[2018-11-11] MEDS: CYCLOBENZAPRINE HCL 10 MG TAB PO PRN (21:16)
[2018-11-12] MEDS: AMPICILLIN/SULBACTAM SOD 3,000 MG in 0.9 % SODIUM CHLORIDE 100 ML IV SCH ×4 (02:10→21:08)
[2018-11-12] MEDS ORDERED: VANCOMYCIN TROUGH ONE (04:30)
[2018-11-12] MEDS: LACTATED RINGER'S 1,000 ML IV SCH (05:30)
[2018-11-12] MEDS: HEPARIN SOD 5,000 UNIT/0.5 ML VIAL SQ SCH (05:30)
[2018-11-12] MEDS: ALBUT/IPRATROP 3MG/0.5MG NEB 3 ML VIAL NEB SCH ×4 (07:13→19:18)
[2018-11-12] MEDS: CHECK FENTANYL PATCH PLACEMENT SCH ×2 (07:44→18:29)
[2018-11-12] MEDS: VENLAFAXINE HCL XR 37.5 MG CAPXR PO SCH ×2 (09:06→21:31)
[2018-11-12] MEDS: ASPIRIN 81 MG ECTAB PO SCH (09:06)
[2018-11-12] MEDS: AMLODIPINE BESYLATE 5 MG TAB PO SCH (09:07)
[2018-11-12] MEDS: PANTOprazole 40 MG TAB PO SCH ×2 (09:07→21:32)
[2018-11-12] MEDS: MELOXICAM 7.5 MG TAB PO SCH (09:07)
[2018-11-12] MEDS: GABAPENTIN 600 MG TAB PO SCH ×2 (09:07→21:32)
--- NOTE | 2018-11-12 13:04 | Hospitalist Progress Note ---
Date of Service November 12, 2018 Assessment & Plan (1) Pneumonia: 68 y/o M with acute metabolic encephalopathy Hx HTN, GERD, depression, dysphagia, suspected aspiration PNM. Presents with cough, fever, SOB. Disoriented/somnolent and Acute respiratory failure with hypoxia with suspected aspiration pneumonia and an 02 sat of 65% on arrival to the ER. The pt has been admitted twice with PNM in 2019. An initial ABG demonstrated a CO2 of 62 Pt relates that states he stops breathing at night, will have nocturnal oximetry study Asked about barbituate on tox screen, pt states he only takes meds he is Rx's. There is a cross reactivity to nsaids with barbiturate screen, will await final analysis Pneumonia with metabolic encephalopathy- hypoxic, hypercarbic and somnolent on arrival - has improved with 02. CT chest is consistent with pneumonia. MRSA nasal swab is negative vancomycin stopped to be transitioned to Unasyn therapy--> eventually will be transitioned to augmentin at discharge scheduled nebs and an 02 protocol provided. Sputum culture pending. Dysphagia -swallowing studies not show any overt signs or risk of aspiration is teach good swallowing techniques Demand ischemia, chronic elevation of Troponin. An EKG showed sinus tach and a CXR was unchanged, possibly demonstrating BL infiltrates. HTN - cont Norvasc GERD - cont Omeprazole Depression - cont Effexor Chronic back pain - cont Fentanyl Headache reported - requested Tylenol which is provided Full code Subjective Patient feels much improved today he is concerned about the recurrence of these issues at home. He states that his does say that he does stop breathing at night. Is concerning whether this could be part of the issues. He however did not qualify for home oxygen with a 2 step therefore will use nocturnal oxygen study to look for the support need for nighttime hypoxia with eventual outpatient pursuance of a sleep study more in a more dedicated fashion. Overall the patient feels better much less coughing is able to walk around the room without difficulties Review of Systems Review of Systems: ROS: well nourished well developed. No double vision blurry vision No problems with speech or swallowing No palpitations, chest pain or pressure Still with occasional coughing and some dyspnea on exertion No abdominal pain nausea vomiting diarrhea changes in appetite or weight No burning urine urine frequency or changes in color No focal joint pain or muscle pain No skin rashes or oral lesions No unusual bruising or bleeding No focused back pain or numbness or loss of strength No changes in memory or confusion Physical Exam Physical Exam: The patient appeared well nourished and normally developed. Vital signs as documented. Head exam is unremarkable. normocephalic, atraumatic Neck is without jugular venous distension, thyromegaly, or lymphademopathy Lungs are rhonchi at the right base otherwise are clear. Cardiac exam reveals Rhythm is regular. First and second heart sounds normal. Abdominal exam reveals normal bowel sounds, no masses, no organomegaly Extremities are nonedematous and both pedal pulses are present Neurologic exam is A&Ox3, no focal deficits, strength is equal bilateral Psychologically seems neither anxious or depressed Skin is warm Dry without bruises or lesions Results & Data Vital Signs (Past 12 Hours) Vital Signs Temp Pulse Pulse Pulse Pulse Pulse Resp 11/12/18 12:52 109 H 105 H 91 H 11/12/18 11:11 80 18 11/12/18 10:44 36.8 C 87 20 11/12/18 08:00 83 11/12/18 07:57 36.9 C 74 21 11/12/18 07:13 71 18 11/12/18 04:54 37.2 C 84 97 H Resp Resp Resp BP Pulse Ox Pulse Ox Pulse Ox 11/12/18 12:52 24 18 16 90 93 11/12/18 11:11 98 11/12/18 10:44 128/83 93 11/12/18 08:00 11/12/18 07:57 138/81 95 11/12/18 07:13 98 11/12/18 04:54 157/83 H 97 Pulse Ox 11/12/18 12:52 92 11/12/18 11:11 11/12/18 10:44 11/12/18 08:00 11/12/18 07:57 11/12/18 07:13 11/12/18 04:54 PG Care Time/CCT Total # of Minutes Spent Total Time Spent with Patient: Total time spent is greater than 50% in coordination of care (as documented) at patient's floor/unit and/or counseling patient:
[2018-11-12] MEDS: CYCLOBENZAPRINE HCL 10 MG TAB PO PRN (21:08)
[2018-11-12] MEDS: POLYETHYLENE (MIRALAX) 17 GM PACK PO PRN (21:08)
[2018-11-12] MEDS: PRAMIPEXOLE DIHYDROCHLO 0.25 MG TAB PO SCH (21:31)
[2018-11-13] MEDS: CHECK FENTANYL PATCH PLACEMENT SCH ×2 (00:22→08:41)
[2018-11-13] MEDS: AMPICILLIN/SULBACTAM SOD 3,000 MG in 0.9 % SODIUM CHLORIDE 100 ML IV SCH ×2 (02:46→08:40)
[2018-11-13] MEDS: ALBUT/IPRATROP 3MG/0.5MG NEB 3 ML VIAL NEB SCH ×3 (07:33→15:12)
[2018-11-13] MEDS: fentaNYL 100 MCG/HR TDSY TD SCH (08:39)
[2018-11-13] MEDS: AMLODIPINE BESYLATE 5 MG TAB PO SCH (08:41)
[2018-11-13] MEDS: VENLAFAXINE HCL XR 37.5 MG CAPXR PO SCH (08:41)
[2018-11-13] MEDS: GABAPENTIN 600 MG TAB PO SCH (08:41)
[2018-11-13] MEDS: MELOXICAM 7.5 MG TAB PO SCH (08:41)
[2018-11-13] MEDS: ASPIRIN 81 MG ECTAB PO SCH (08:41)
[2018-11-13] MEDS: PANTOprazole 40 MG TAB PO SCH (08:41)
[2018-11-13] MEDS: CYCLOBENZAPRINE HCL 10 MG TAB PO PRN (08:41)
[2018-11-13] MEDS: POLYETHYLENE (MIRALAX) 17 GM PACK PO PRN (08:52)
--- NOTE | 2018-11-13 16:33 | Discharge Summary ---
Date of Service November 13, 2018 Admission HPI Per Admitting Provider 68 y/o M Hx HTN, GERD, depression, dysphagia, suspected aspiration PNM. Presents with cough, fever, SOB. Disoriented/somnolent and hypoxic with an 02 sat of 65% on arrival to the ER. The pt's provides that he had been coughing the prior evening. He had also complained of a headache x 2 days which was accompanied by an episode of nausea and vomiting. She went to sleep and woke up at 3:am and noted that he had fallen asleep in a chair with the front door open and half a sandwich on the porch. When she tried to wake him up, he remained somnolent and incoherent. She called EMS therefore. The pt has been admitted twice with PNM in 2019. He was advised on a swallow evaluation as aspiration was suspected but has not yet complied with this advice. The pt responded well to 02 and nebs, regaining his orientation. He was wearing an NRB with 10L 02 at the rime of admission. An initial ABG demonstrated a CO2 of 62 and a marginally elevated troponin. An EKG showed sinus tach and a CXR was unchanged, possibly demonstrating BL infiltrates. PMH: 1) Recurrent PNM - admitted 07/09 and 09/08 with pneumonia suspected due to aspiration 2) Troponin elevations during previous PNM episodes deemed demand-related - normal echo 08/2018 3) HTN 4) GERD 5) Depression 6) Dysphagia - this appears to be worsening per his and he is scheduled for an endoscopy in the coming month. 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 Does not drink alcohol. 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 Family: Father age 74 - Alzheimer's dementia Mother age 88 - breast CA Principal Diagnosis aspiration pneumonia Discharge Exam Constitutional well developed and average body habitus Eyes no conjunctival abnormality and no scleral abnormality Neck normal visual inspection and trachea midline Respiratory normal respiratory effort; no respiratory distress Auscultation: lungs clear to auscultation bilaterally Cardiovascular RRR, no murmur, no edema Gastrointestinal (Abdomen) normal bowel sounds, soft, nontender, no hepatosplenomegaly Musculoskeletal no cyanosis or clubbing, extremities motor strength 5/5 Discharge Data Allergies Allergy/AdvReac Type Severity Reaction Status Date / Time bee venom protein (honey bee) Allergy Intermediate EXCESSIVE Verified 11/10/18 04:43 SWELLING AT SITE sulfamethoxazole Allergy Intermediate TONGUE Verified 11/10/18 04:43 SWELLS, WHITE BLISTERS IN MOUTH. trimethoprim Allergy Intermediate TONGUE Verified 11/10/18 04:43 SWELLS, WHITE BLISTERS IN MOUTH. adhesive Allergy Mild SKIN Verified 11/10/18 04:43 IRRITATION Bactrim Allergy Unknown . Unverified 07/23/15 11:07 morphine AdvReac Intermediate PROJECTILE Verified 11/10/18 04:43 VOMITING Consultations 11/10/18 05:27 ED Decision to Admit Stat Ordered Studies 11/10/18 05:06 CT angio chest PE protocol Urgent 11/11/18 14:15 FL video swallow Routine Hospital Course (1) Pneumonia: 68 y/o M with acute metabolic encephalopathy Hx HTN, GERD, depression, dysphagia, suspected aspiration PNM. Presents with cough, fever, SOB. Disoriented/somnolent and Acute respiratory failure with hypoxia with suspected aspiration pneumonia and an 02 sat of 65% on arrival to the ER. The pt has been admitted twice with PNM in 2019. An initial ABG demonstrated a CO2 of 62 Pt relates that states he stops breathing at night, will have nocturnal oximetry study Asked about barbituate on tox screen, pt states he only takes meds he is Rx's. There is a cross reactivity to nsaids with barbiturate screen,pending final analysis at time of discharge Pneumonia with metabolic encephalopathy- hypoxic, hypercarbic and somnolent on arrival - has improved with 02. CT chest is consistent with pneumonia. MRSA nasal swab is negative vancomycin stopped to be transitioned to Unasyn therapy--> eventually will be transitioned to augmentin at discharge scheduled nebs and an 02 protocol provided. Sputum culture negative Dysphagia -swallowing studies not show any overt signs or risk of aspiration is teach good swallowing techniques pt had an ambulatory oxygne test and a nocuturnal study, both did not show need for oxygen, pt [facility], I did give Rx but explained that this will likely not be covered by insurance Demand ischemia, chronic elevation of Troponin. An EKG showed sinus tach and a CXR was unchanged, possibly demonstrating BL infiltrates. HTN - cont Norvasc GERD - cont Omeprazole Depression - cont Effexor Chronic back pain - cont Fentanyl Headache reported - requested Tylenol which is provided Full code Total Time Total Time Spent Total Time Spent (In Minutes): greater than 30 minutes were required to prepare discharge Discharge Plan Discharge Items Patient Disposition: Home - Self-Care Reason For Visit: ASPIRATION PNM Discharge Diagnosis: low oxygen aspiration pneumonia Discharge Goals: Decrease discomfort Activity: Resume your previous activity Non-emergency contact: Primary Care Provider Call non-emergency contact if: you have any medication questions Follow-up/Referrals: Jayy Hodges M.D. [Primary Care Provider] - (Please, follow up at [facility] in [place]. A nurse from this office will call you with the appointment information. If you have any questions, call the clinic at [phone]. ) Diet: Regular Diet Comment: please be careful with eating and swallowing Addtl Provider Instructions: please follow up with your primary care doctor to assure that your pneumonia has resolved Prescriptions: New amoxicillin-pot clavulanate [Augmentin] 875-125 mg tablet 1 tab PO BID Qty: 16 RF: 0 Continued venlafaxine [Effexor XR] 37.5 mg Capsule,Extended Release 24hr 37.5 mg PO BID RF: 0 gabapentin 600 mg Tablet 600 mg PO BID RF: 0 amlodipine 5 mg Tablet 5 mg PO DAILY RF: 0 meloxicam 7.5 mg Tablet 7.5 mg PO DAILY RF: 0 fentanyl 100 mcg/hr Patch 72 Hour 1 patch TRANSDERMAL Q OTHER DAY RF: 0 omeprazole 20 mg Capsule,Delayed Release(Dr/Ec) 20 mg PO BID RF: 0 aspirin [Aspirin Low Dose] 81 mg tablet,delayed release (DR/EC) 81 mg PO DAILY Qty: 30 RF: 9 pramipexole 0.125 mg Tablet PO HS RF: 0 Discontinued cyclobenzaprine 10 mg Tablet 10 mg PO HS PRN (Reason: Muscle Spasm) RF: 0 Stand-Alone Forms: Mayi Zhaopin/Other Patient Handouts: DVT Prevent Discharge Orders: Discharge Order (Routine); Ordered 11/13/18 Ordered By: Billy Mcdonald Admission Data Admit Date/Time: 11/10/18 06:17 Attending Provider: Billy Mcdonald Admit Provider: Jeff Johnson Primary Care Provider: Jayy Hodges Other Providers: Arnold Rausch Roy Service: Medical Other Interventions: Discharge Summary Assessment (RN) Last Done: 11/13/18 13:36 DC Date/Time DO NOT enter until pt leaves facility: 11/13/18 15:16
[2018-11-14 16:49] LABS: Amobarbital, Urine Conf NEGATIVE NG/ML (CUTOFF=100); Butalbital, Urine 304 NG/ML (CUTOFF=100); Pentobarbital, Urine Conf NEGATIVE NG/ML (CUTOFF=100); Phenobarbital, Urine NEGATIVE NG/ML (CUTOFF=100); Secobarbital, Urine Conf NEGATIVE NG/ML (CUTOFF=100)
== END 2018-11-13 15:16 | disposition home or self-care (01) | DRG 177 ==
LOC: ED 04:09 → SUATTDRO 06:17 → 2S 06:17 → 3W 11-12 12:56

== ENCOUNTER 2019-01-23 13:24 | Inpatient (IN) ==
[2019-01-23] MEDS ORDERED: ACETAMINOPHEN 1,000 MG/100 ML VIAL IV STA (13:41)
[2019-01-23] MEDS ORDERED: SODIUM CHLORIDE 0.9% 1000ML 2,000 ML IV ONE (13:41)
[2019-01-23] MEDS ORDERED: PROCHLORPERAZINE 2 ML IV ONE (13:51)
[2019-01-23] MEDS ORDERED: PIPERACILL/TAZOBAC CONSULT ACTIVE PRN (13:57)
[2019-01-23] MEDS ORDERED: PIPERACILLIN/TAZOBACTAM 4.5 GM/120 ML BAG IV ONE (13:57)
[2019-01-23] MEDS ORDERED: DOXYCYCLINE HYCLATE 100 MG in DEXTROSE 5% 100 ML IV STA (13:57)
--- NOTE | 2019-01-23 13:59 | XRay Report ---
XR chest 1V portable CLINICAL HISTORY: 68 years-old Male presenting with Sepsis. TECHNIQUE: Portable upright AP view of the chest was obtained. COMPARISON: 11/10/2018. FINDINGS: Atherosclerosis of the aortic arch. Cardiac silhouette normal in size. Pulmonary vascular prominence. Persistent elevation of the right hemidiaphragm. Coarsened lung markings. Few bandlike and nodular o pacities in the right lung base. Some of these were present on prior exam. No large effusion or pneum othorax. Osseous structures normal. Upper abdomen normal. IMPRESSION: 1. Elevation of the right hemidiaphragm with scattered right basilar predominant opacities possibly atelectasis or scarring. No new focal infiltrate. 2. Volume overload. No zhen pulmonary edema. Electronically signed by: Jr Douglas M.D. 01/23/2019 1:58 PM
[2019-01-23] MEDS ORDERED: ALBUT/IPRATROP 3MG/0.5MG NEB 3 ML VIAL NEB STA (14:01)
[2019-01-23] MEDS ORDERED: methylPREDNISolone 125 MG/2 ML VIAL IV STA (14:01)
[2019-01-23 14:07] LABS: Base Excess VBG 6.1 mEq/L; Oxygen Saturation VBG 77.4 %; pH VBG 7.45 (7.36-7.41)
[2019-01-23 14:17] LABS: Basophils # (auto) 0.02 K/uL (0-0.2); Basophils % (auto) 0.1 %; Eosinophils # (auto) 0.03 K/uL (0-0.5); Eosinophils % (auto) 0.2 %; Hematocrit (blood only) 41.2 % (42-52); Hemoglobin 13.7 g/dL (14.0-18.0); Immature Granulocytes # (auto) 0.05 K/uL (0.00-0.02); Immature Granulocytes % (auto) 0.3 %; Lymphocytes % (auto) 3.6 %; Mean Corpuscular Hemoglobin 31.2 pg (25-34); Mean Corpuscular Hgb Conc 33.3 g/dL (32-36); Mean Corpuscular Volume 93.8 fL (80-100); Mean Platelet Volume 9.9 fL (7.4-10.4); Monocytes # (auto) 0.94 K/uL (0.11-0.59); Monocytes % (auto) 5.7 %; Neutrophils # (auto) 14.92 K/uL (1.4-6.5); Neutrophils % (auto) 90.1 %; Partial Thromboplastin Ratio 0.8; Partial Thromboplastin Time 21.3 Seconds (21.0-31.0); Platelet Count 267 K/uL (130-400); Prothrombin Time 10.6 Seconds (9.0-12.0); RDW Coefficient of Variation 13.5 % (11.5-14.5); RDW Standard Deviation 46.5 fL (36.4-46.3); Red Blood Count 4.39 M/uL (4.7-6.1); White Blood Count 16.56 K/uL (4.8-10.8)
[2019-01-23 14:25] LABS: Albumin Level 3.9 gm/dl (3.4-5.0); BUN Creatinine Ratio 12.5 (10-20); Bilirubin Direct 0.2 mg/dl (0-0.2); Calcium 9.5 mg/dl (8.5-10.1); Creatinine Clr Calc Pharmacy 67.3 ml/min; Est GFR (African American) 80.1; Est GFR (Non-African American) 69.1; Magnesium 1.7 mg/dl (1.8-2.4); Potassium 4.1 mmol/L (3.5-5.1)
[2019-01-23] MEDS ORDERED: VANCOMYCIN HCL 1,750 MG in SODIUM CHLORIDE 0.9% 500 ML IV ONE (14:34)
[2019-01-23] MEDS ORDERED: VANCOMYCIN CONSULT ACTIVE PRN (14:34)
[2019-01-23 14:45] LABS: Bilirubin,Total 0.8 mg/dl (0.2-1); Total Protein 7.9 gm/dl (6.4-8.2)
[2019-01-23] MEDS ORDERED: POTASSIUM PHOS 3 MMOL/1 ML INFUSION IV STA ×2 (15:02→20:15)
[2019-01-23] MEDS: MAGNESIUM SULFATE / D5W 1 GM/100 ML BAG IV SCH ×2 (15:13→16:48)
[2019-01-23] MEDS ORDERED: POTASSIUM PHOSPHATE 9 MMOL in SODIUM CHLORIDE 0.9% 250 ML IV ONE (15:15)
[2019-01-23] MEDS ORDERED: OPTIRAY 320 125ml IV PRN (17:14)
--- NOTE | 2019-01-23 17:24 | CT Scan Report ---
CT ANGIOGRAM OF THE CHEST CLINICAL HISTORY: Chest discomfort and sepsis. COMPARISON STUDY: CT scan dated 11/10/2018, chest x-ray dated 01/23/2019 TECHNIQUE: Following the IV administration of 119 mL of [id number]-320, CT angiogram of the thorax was p erformed from the thoracic inlet to the lung bases utilizing the pulmonary embolus protocol. Images a re reviewed in the axial, sagittal, and coronal planes. IV contrast was administered without complica tion. MIP imaging was performed. A dose lowering technique was utilized adhering to the principles o f ALARA. CT DOSE: 726.23 mGy.cm FINDINGS: There is hepatic steatosis. No pathologically enlarged axillary mediastinal or hilar lymph nodes were visualized. There was no evidence of thoracic aortic dilatation. There were no pulmonary artery filling defects to indicate acute pulmonary embolism. There are no significant pleural effusions There is pulmonary emphysema. There are fluffy right upper lobe and right lower lobe airspace opaciti es suspicious for pneumonia. There is elevation the right hemidiaphragm, and there are associated rig ht lower lobe atelectatic changes. IMPRESSION: 1. No evidence of acute pulmonary embolism 2. Chronic elevation of the right hemidiaphragm 3. Interval development of right upper and lower lobe airspace opacities, suspicious for pneumonia. I maging subsequent to treatment is recommended in follow-up. Electronically signed by: Jermaine Alfaro M.D. 01/23/2019 5:23 PM
--- NOTE | 2019-01-23 19:29 | History & Physical Report ---
Date of Service January 23, 2019 Assessment & Plan (1) Sepsis: Most probably due to pneumonia. Admit to inpatient on telemetry for IV antibiotics Breathing treatments with DuoNeb every 4 hours as needed while patient awake Started Solu-Medrol 40 mg IV twice daily CBC CMP daily and replenish electrolytes Patient was given vancomycin and Zosyn in the ER for hospital-acquired pneumonia. Blood cultures pending Respiratory culture needs to be taken Follow-up cultures for specific antibiotic treatment BNP pending Replenish hypomagnesemia of 1.7 Replenish hypophosphatemia with K-Phos DVT prophylaxis Lovenox 40 mg SC daily Full code Present on Admission?: Yes (2) Pneumonia: As above Present on Admission?: Yes (3) Hypophosphatemia: Replenish phosphorus with K-Phos. Repeat phosphorus in 6 hours Present on Admission?: Yes (4) Chronic respiratory failure: Patient is chronically on 4 L of oxygen. Continue treatment for pneumonia and sepsis. Present on Admission?: Yes (5) Depression: Continue home medicine venlafaxine 37.5 mg p.o. twice daily (6) GERD (gastroesophageal reflux disease): Continue omeprazole 20 mg p.o. twice daily Present on Admission?: Yes (7) Chronic back pain: Continue fentanyl patch every other day. Continue gabapentin 800 mg p.o. 3 times daily. Continue meloxicam 7.5 p.o. daily Present on Admission?: Yes (8) Hypertension: Stable continue aspirin 81 mg p.o. daily, continue amlodipine 5 mg p.o. daily Present on Admission?: Yes History of Present Illness Chief Complaint: Sepsis and pneumonia Primary Care Provider: NO PCP Patient is a 68 years old male with past medical history of chronic hypoxia on 4 L of oxygen 24 hours 7 days a week, hypertension depression, GERD, coronary artery disease presents to the emergency room with a complaint of increased sleepiness, tiredness generalized malaise and cough. Patient supposed to go to have evaluation for a slight obstructive sleep apnea but due to his sleeping habits they have not been able to completed in the sleep lab. Patient is poor historian. He he is very sleepy but arousable. His said that he did not sleep all night long because of the febrile illness and this is usually how he sleeps and he is very very tired. Per patient since patient is very sleepy and difficult to communicate he is review of system patient was sweating at home and had subjective fever. Per his he did not complain of headache or chest pain abdominal pain frequency or urgency and he did not have diarrhea nor melena. Elevated white blood cell count of 16.56, hemoglobin 13.7 hematocrit 41.2 platelets 267. PT 10.6 INR 1 APTT 21.3. Sodium 138, potassium 4.1 chloride 102 BUN 14 creatinine 1.1 GFR 69.1 lactic acid 2.1Magnesium 1.7. Troponin [address] of the chest shows.No evidence of acute pulmonary embolism. Interval development of right upper and lower lobe airspace opacities suspicious for pneumonia. There is pulmonary emphysema. Decision was made to admit patient for sepsis and pneumonia to the PCU on telemetry for IV antibiotics with expectation to stay to stay more than 2 nights. Allergies Allergy/AdvReac Type Severity Reaction Status Date / Time bee venom protein (honey bee) Allergy Intermediate EXCESSIVE Verified 01/23/19 14:41 SWELLING AT SITE sulfamethoxazole Allergy Intermediate TONGUE Verified 01/23/19 14:41 SWELLS, WHITE BLISTERS IN MOUTH. trimethoprim Allergy Intermediate TONGUE Verified 01/23/19 14:41 SWELLS, WHITE BLISTERS IN MOUTH. adhesive Allergy Mild SKIN Verified 01/23/19 14:41 IRRITATION Bactrim Allergy Unknown . Unverified 07/23/15 11:07 morphine AdvReac Intermediate PROJECTILE Verified 01/23/19 14:41 VOMITING Home Medications Home Medications Medication Instructions Recorded Confirmed Type amlodipine 5 mg PO DAILY 06/26/18 01/23/19 History fentanyl 1 patch TRANSDERMAL Q OTHER DAY 06/26/18 01/23/19 History meloxicam 7.5 mg PO DAILY 06/26/18 01/23/19 History omeprazole 20 mg PO BID 06/26/18 01/23/19 History venlafaxine [Effexor XR] 37.5 mg PO BID 06/26/18 01/23/19 History aspirin [Aspirin Low Dose] 81 mg PO DAILY #30 tab 09/11/18 01/23/19 Rx pramipexole 0 mg PO HS 11/10/18 01/23/19 History gabapentin 800 mg PO TID 01/23/19 01/23/19 History Past Med/Surg History Medical History Hypercapnia (Acute) Non-ST elevation PA (NSTEMI) (Acute) Elevated brain natriuretic peptide (BNP) level (Acute) Metabolic encephalopathy Headache (Acute) Altered mental state (Acute) Pleural effusion, right Lymphadenopathy Depression GERD (gastroesophageal reflux disease) Chronic back pain Hypertension Pneumonia (Acute) Sepsis Hypoxia (Acute) Fever (Acute) Right upper quadrant abdominal pain (Acute) Leukocytosis (Acute) Facial laceration (Resolved) Hypoxia (Acute) Leukocytosis Family History Other Cancer Gallbladder disease Hypertension Social History Preferred Language: Danish Communication Ability: Effective Shipping Coordinator Required: No Beliefs That Will Affect Care: None marital status: Current Living Situation: Spouse current occupational status: retired Feels Safe at Home: Yes Smoking Status: Former smoker Tobacco Type: cigarettes ; Second Hand Exposure: No ; Hx Alcohol Use: No Hx Substance Use: No Review of Systems Review of Systems: All systems reviewed & are unremarkable except as noted in HPI & below Physical Exam Constitutional: WD/WN, vitals as above well developed Very sleepy Eyes: PERRL, conjunctivae normal, anicteric sclerae ENMT: external ear and nose normal, oropharynx normal Neck: trachea midline, no thyromegaly Respiratory: normal respiratory effort, lungs clear to auscultation Auscultation: + crackles, + wheezes and + bronchovesicular breath sounds Cardiovascular: RRR, no murmur, no edema Gastrointestinal (Abdomen): normal bowel sounds, soft, nontender, no hepatosplenomegaly Skin: Difficult to conduct the exam patient is very sleepy Neurologic: patellar DTR's 2+ bilat, sensation intact Psychiatric: A+Ox3, euthymic affect Lymphatic: no cervical or axillary lymphadenopathy Results & Data Vital Signs (Past 12 Hours) Vital Signs Temp Pulse Pulse Resp BP BP Pulse Ox 01/23/19 19:00 89 13 132/86 01/23/19 18:30 85 14 137/81 01/23/19 18:00 91 H 19 109/81 01/23/19 17:30 92 H 14 99/60 L 01/23/19 17:27 92 H 15 97/60 L 10/03/19 17:00 95 H 12 01/23/19 16:30 86 15 01/23/19 16:00 101 H 23 113/72 01/23/19 15:30 106 H 14 127/77 01/23/19 15:00 107 H 19 93/75 L 01/23/19 14:30 112 H 18 132/85 01/23/19 14:22 120 H 25 H 93 01/23/19 14:13 109 H 20 93 01/23/19 14:03 111 H 111 H 20 117/84 95 01/23/19 14:01 120 H 29 H 117/84 93 01/23/19 13:27 38.8 C H 119 H 26 H 135/85 90 Code Status & VTE Plan Code Status Full code VTE Prophylaxis Plan VTE Prophylaxis will be ordered: Yes PG Care Time/CCT Total # of Minutes Spent Total Time Spent with Patient: Total time spent is greater than 50% in coordination of care (as documented) at patient's floor/unit and/or counseling patient: (1) Sepsis Sepsis acute organ dysfunction status: unspecified Sepsis type: sepsis due to unspecified organism Qualified Code(s): A41.9 - Sepsis, unspecified organism (2) Pneumonia Laterality: unspecified laterality Lung location: unspecified part of lung Pneumonia type: due to unspecified organism Qualified Code(s): J18.9 - Pneumonia, unspecified organism
[2019-01-23] MEDS ORDERED: ALBUT/IPRATROP 3MG/0.5MG NEB 3 ML VIAL NEB PRN (20:15)
[2019-01-23] MEDS ORDERED: SODIUM CHLORIDE 0.9% 1000ML 1,000 ML IV SCH (20:15)
[2019-01-23] MEDS ORDERED: ACETAMINOPHEN 325 MG TAB PO PRN (20:15)
[2019-01-23] MEDS ORDERED: ALUMINUM/MAGNESIUM SUSP 30 ML UDC PO PRN (20:15)
[2019-01-23] MEDS ORDERED: MAGNESIUM HYDROXIDE SUSP 30 ML UDC PO PRN (20:15)
[2019-01-23] MEDS ORDERED: MAGNESIUM SULFATE / D5W 1 GM/100 ML BAG IV ONE (20:30)
[2019-01-23] MEDS ORDERED: POTASSIUM PHOSPHATE 21 MMOL in SODIUM CHLORIDE 0.9% 500 ML IV ONE (20:30)
[2019-01-23] MEDS ORDERED: fentaNYL 100 MCG/HR TDSY TD SCH (21:00)
[2019-01-23 21:04] LABS: BUN Creatinine Ratio 12.2 (10-20); Calcium 8.2 mg/dl (8.5-10.1); Creatinine Clr Calc Pharmacy 70.5 ml/min; Est GFR (African American) 74.3; Est GFR (Non-African American) 64.1; Magnesium 2.2 mg/dl (1.8-2.4); Potassium 4.4 mmol/L (3.5-5.1)
[2019-01-23 21:16] LABS: Phosphorus 3.1 mg/dl (2.5-4.9); Thyroid Stimulating Hormone 0.204 uIu/ml (0.300-4.500)
[2019-01-23] MEDS: ENOXAPARIN INJ 40 MG/0.4 ML SYR SQ SCH (21:53)
[2019-01-23] MEDS: PIPERACILLIN/TAZOBACTAM 3.375 GM in DEXTROSE 5% 100 ML IV SCH (21:54)
[2019-01-23] MEDS: GABAPENTIN 400 MG CAP PO SCH (21:54)
[2019-01-23] MEDS: methylPREDNISolone 40 MG in SYRINGE 0 ML IV SCH (21:54)
[2019-01-23] MEDS: PANTOprazole 40 MG TAB PO SCH (21:54)
[2019-01-23] MEDS: VENLAFAXINE HCL XR 37.5 MG CAPXR PO SCH (21:55)
[2019-01-23] MEDS: PRAMIPEXOLE DIHYDROCHLO 0.25 MG TAB PO SCH (21:55)
[2019-01-23] MEDS ORDERED: Nursing to Pharmacy Communication ONE (22:12)
[2019-01-23] MEDS: CYCLOBENZAPRINE HCL 5 MG TAB PO PRN (23:08)
[2019-01-23] MEDS: CHECK FENTANYL PATCH PLACEMENT SCH (23:09)
[2019-01-23 23:26] LABS: Appearance Urine Clear (Clear); Bilirubin Urine Negative (Negative); Blood Urine Negative (Negative); Color Urine Yellow; Glucose Urine UA 2+ (Negative); Ketones Urine Negative (Negative); Leukocyte Esterase Urine Negative (Negative); Nitrite Urine Negative (Negative); Protein Urine Negative (Negative); Specific Gravity Urine 1.024 (1.000-1.030); Urobilinogen Urine Negative (Negative); pH Urine 6.5 (4.5-7.5)
--- NOTE | 2019-01-24 00:59 | Emergency Department Note ---
Entered by Nereida Duffy acting as a scribe for History of Present Illness General Chief complaint: Respiratory Problems Stated complaint: 102.7 TEMP, LOW OXYGEN, NOT QUITE WITH IT Time Seen by Provider: 01/23/19 13:34 Source: patient History of Present Illness Onset (ago): day(s) (last night) Location: chest Pain Consistency: + other (episode) Maximum Pain Intensity: 8 Quality: + other (respiratory problem) Associated symptoms: + cough, + fever/chills (fever), + nausea/vomiting and + shortness of breath; no chest pain The patient is a 68 year old male who presents to the Emergency Room with complaints of an episode of respiratory problems starting last night. The patient states that he has a history of lung issues and is supposed to have a C- PAP, but never got one. He notes that he is on 3L of O2 at all times though. He reports that last night he started having shortness of breath and a productive cough. He states that it feels like he cant take a deep breath. The patient notes that along with it he has had a fever, nausea, and vomiting. He notes that he vomited 5-6 times since last night. The patient denies chest pain. Home Medications Home Medications Medication Instructions Recorded Confirmed Type amlodipine 5 mg PO DAILY 06/26/18 01/23/19 History fentanyl 1 patch TRANSDERMAL Q OTHER DAY 06/26/18 01/23/19 History meloxicam 7.5 mg PO DAILY 06/26/18 01/23/19 History omeprazole 20 mg PO BID 06/26/18 01/23/19 History venlafaxine [Effexor XR] 37.5 mg PO BID 06/26/18 01/23/19 History aspirin [Aspirin Low Dose] 81 mg PO DAILY #30 tab 09/11/18 01/23/19 Rx pramipexole 0 mg PO HS 11/10/18 01/23/19 History gabapentin 800 mg PO TID 01/23/19 01/23/19 History Allergies Allergy/AdvReac Type Severity Reaction Status Date / Time bee venom protein (honey bee) Allergy Intermediate EXCESSIVE Verified 01/23/19 14:41 SWELLING AT SITE sulfamethoxazole Allergy Intermediate TONGUE Verified 01/23/19 14:41 SWELLS, WHITE BLISTERS IN MOUTH. trimethoprim Allergy Intermediate TONGUE Verified 01/23/19 14:41 SWELLS, WHITE BLISTERS IN MOUTH. adhesive Allergy Mild SKIN Verified 01/23/19 14:41 IRRITATION Bactrim Allergy Unknown . Unverified 07/23/15 11:07 morphine AdvReac Intermediate PROJECTILE Verified 01/23/19 14:41 VOMITING Past Med/Surg History Medical History Hypercapnia (Acute) Non-ST elevation [place] (NSTEMI) (Acute) Elevated brain natriuretic peptide (BNP) level (Acute) Metabolic encephalopathy Headache (Acute) Altered mental state (Acute) Pleural effusion, right Lymphadenopathy Depression GERD (gastroesophageal reflux disease) Chronic back pain Hypertension Pneumonia (Acute) Sepsis Hypoxia (Acute) Fever (Acute) Right upper quadrant abdominal pain (Acute) Leukocytosis (Acute) Facial laceration (Resolved) Hypoxia (Acute) Leukocytosis Family History Other Cancer Gallbladder disease Hypertension Social History Preferred Language: Polish Communication Ability: Effective 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 and A total of 10 systems reviewed and were otherwise negative Physical Exam Vital Signs Vital Signs - 24 hr 01/23/19 13:27 01/23/19 14:01 01/23/19 14:03 Temperature 38.8 C H Temperature Source Oral Sepsis Recent Fever Within 48 Hours Yes Sepsis New/Unexplained Change in Mental Status No Sepsis Action Taken by Nursing Physician Notified Pulse Rate 119 H 120 H 111 H Pulse Rate [Finger] 111 H Pulse Rate from SpO2 Sensor 120 H Pulse Rhythm Regular Pulse Strength Normal Respiratory Rate 26 H 29 H 20 Respiratory Effort / Characteristics Non-Labored Spontaneous Respiratory Depth Normal Normal Respiratory Pattern Regular Blood Pressure 135/85 117/84 Blood Pressure [Right Arm] 117/84 Blood Pressure Mean 101 95 Blood Pressure Mean [Right Arm] 95 Blood Pressure Position Sitting Pulse Oximetry 90 93 95 Oxygen Delivery Method Nasal Cannula Nasal Cannula Oxygen Flow Rate 3 2 01/23/19 14:13 01/23/19 14:22 01/23/19 14:30 Temperature Temperature Source Sepsis Recent Fever Within 48 Hours Sepsis New/Unexplained Change in Mental Status Sepsis Action Taken by Nursing Pulse Rate 120 H 112 H Pulse Rate [Finger] 109 H Pulse Rate from SpO2 Sensor 120 H Pulse Rhythm Pulse Strength Respiratory Rate 20 25 H 18 Respiratory Effort / Characteristics Spontaneous Grunting Respiratory Depth Respiratory Pattern Blood Pressure 132/85 Blood Pressure [Right Arm] Blood Pressure Mean 100 Blood Pressure Mean [Right Arm] Blood Pressure Position Pulse Oximetry 93 93 Oxygen Delivery Method Nasal Cannula Nasal Cannula Oxygen Flow Rate 3 3 01/23/19 15:00 01/23/19 15:30 01/23/19 16:00 Temperature Temperature Source Sepsis Recent Fever Within 48 Hours Sepsis New/Unexplained Change in Mental Status Sepsis Action Taken by Nursing Pulse Rate 107 H 106 H 101 H Pulse Rate [Finger] Pulse Rate from SpO2 Sensor Pulse Rhythm Pulse Strength Respiratory Rate 19 14 23 Respiratory Effort / Characteristics Respiratory Depth Respiratory Pattern Blood Pressure 93/75 L 127/77 113/72 Blood Pressure [Right Arm] Blood Pressure Mean 81 93 85 Blood Pressure Mean [Right Arm] Blood Pressure Position Pulse Oximetry Oxygen Delivery Method Oxygen Flow Rate 01/23/19 16:30 01/23/19 17:00 01/23/19 17:27 Temperature Temperature Source Sepsis Recent Fever Within 48 Hours Sepsis New/Unexplained Change in Mental Status Sepsis Action Taken by Nursing Pulse Rate 86 95 H 92 H Pulse Rate [Finger] Pulse Rate from SpO2 Sensor Pulse Rhythm Pulse Strength Respiratory Rate 15 12 15 Respiratory Effort / Characteristics Respiratory Depth Respiratory Pattern Blood Pressure 97/60 L Blood Pressure [Right Arm] Blood Pressure Mean 72 Blood Pressure Mean [Right Arm] Blood Pressure Position Pulse Oximetry Oxygen Delivery Method Oxygen Flow Rate 01/23/19 17:30 01/23/19 18:00 01/23/19 18:30 Temperature Temperature Source Sepsis Recent Fever Within 48 Hours Sepsis New/Unexplained Change in Mental Status Sepsis Action Taken by Nursing Pulse Rate 92 H 91 H 85 Pulse Rate [Finger] Pulse Rate from SpO2 Sensor Pulse Rhythm Pulse Strength Respiratory Rate 14 19 14 Respiratory Effort / Characteristics Respiratory Depth Respiratory Pattern Blood Pressure 99/60 L 109/81 137/81 Blood Pressure [Right Arm] Blood Pressure Mean 73 90 99 Blood Pressure Mean [Right Arm] Blood Pressure Position Pulse Oximetry Oxygen Delivery Method Oxygen Flow Rate GENERAL: Awake, alert, ill-appearing, in no distress HENT: Normocephalic, atraumatic. Oropharynx with dry mucous membranes and otherwise unremarkable. EYES: Normal conjunctiva. Sclera non-icteric. NECK: Supple. No nuchal rigidity. FROM. No JVD. RESPIRATORY: Scattered wheezes and rhonchi. CARDIAC: Tachycardic rate, normal rhythm. Extremities warm and well perfused. Pulses equal. ABDOMEN: Soft, non-distended. No tenderness to palpation. No rebound or guarding. No masses. RECTAL: Deferred. MUSCULOSKELETAL: Chest examination reveals no tenderness. The back is symmetrical on inspection without obvious abnormality. There is no CVA tenderness to palpation. No joint edema. LOWER EXTREMITIES: Calves are equal size bilaterally and non-tender. No edema. No discoloration. NEURO: Normal sensorium. No sensory or motor deficits noted. SKIN: No rash or jaundice noted. Course 1338: Past medical records reviewed. The patient was evaluated in room A12B. A complete history and physical exam was performed. 1440: I reevaluated the patient and updated the him on his test results at this time. I discussed the treatment plan with him. He verbally agrees and understands. 1502: I discussed the patient's case with Dr. Debra JONES Hospitalist. She will evaluate the patient for further management. Consultations Consultation #1: I discussed the patient's case with Dr. Debra JONES Hospitalist. She will evaluate the patient for further management. Time: 15:02 Administered Medications Cyclobenzaprine HCl (Flexeril) 5 mg PO TID PRN PRN Reason: Muscle Spasm Stop: 02/23/19 08:59 Last Admin: 01/23/19 23:08 Dose: 5 mg Documented by: [id number] Enoxaparin Sodium (Lovenox) 40 mg SQ Q24H [facility] Stop: 02/22/19 20:59 Last Admin: 01/23/19 21:53 Dose: 40 mg Documented by: [id number] Gabapentin (Neurontin) 800 mg PO TID [facility] Stop: 02/22/19 20:59 Last Admin: 01/23/19 21:54 Dose: 800 mg Documented by: [id number] Sodium Chloride (Nss 1000ml) 1,000 mls @ 80 mls/hr IV .[id number] [facility] Stop: 01/24/19 08:44 Last Admin: 01/23/19 21:46 Dose: 80 mls/hr Documented by: [id number] Methylprednisolone 40 mg/ (Syringe) 0.64 mls @ 1.5 mls/min IV BID [facility] Stop: 01/24/19 21:01 Last Admin: 01/23/19 21:54 Dose: 1.5 mls/min Documented by: [id number] Potassium Phosphate 21 mmol/ (Sodium Chloride) 507 mls @ 88 mls/hr IV ONE ONE Stop: 01/24/19 02:15 Last Admin: 01/23/19 21:47 Dose: 88 mls/hr Documented by: [id number] Piperacillin Sod/Tazobactam (Sod 3.375 gm/ Dextrose) 115 mls @ 28.75 mls/hr IV Q8H [facility]; Protocol Stop: 01/25/19 20:59 Last Admin: 01/23/19 21:54 Dose: 28.8 mls/hr Documented by: [id number] Miscellaneous (Fentanyl Patch Check Placement) 1 ea N/A QS [facility] Stop: 02/23/19 00:00 Last Admin: 01/23/19 23:09 Dose: 1 ea Documented by: [id number] Pantoprazole Sodium (Protonix) 40 mg PO BID [facility] Stop: 02/22/19 20:59 Last Admin: 01/23/19 21:54 Dose: 40 mg Documented by: [id number] Pramipexole Dihydrochloride (Mirapex) 0.125 mg PO HS [facility] Stop: 02/22/19 20:59 Last Admin: 01/23/19 21:55 Dose: 0.125 mg Documented by: [id number] Venlafaxine HCl (Effexor Extended Release) 37.5 mg PO BID [facility] Stop: 02/22/19 20:59 Last Admin: 01/23/19 21:55 Dose: 37.5 mg Documented by: [id number] Discontinued Medications Albuterol (Duoneb) 3 ml NEB NOW STA Stop: 01/23/19 14:02 Last Admin: 01/23/19 14:11 Dose: 3 ml Documented by: [id number] Acetaminophen (Ofirmev) 1,000 mg in 100 mls @ 400 mls/hr IV NOW STA Stop: 01/23/19 13:55 Last Infusion: 01/23/19 14:35 Dose: 0 mls/hr Documented by: [id number] Admin: 01/23/19 14:13 Dose: 400 mls/hr Documented by: [id number] Sodium Chloride (Nss 1000ml) 2,000 mls @ 999 mls/hr IV .Q2H1M ONE Stop: 01/23/19 15:41 Last Infusion: 01/23/19 19:05 Dose: 0 mls/hr Documented by: [id number] Admin: 01/23/19 14:13 Dose: 999 mls/hr Documented by: [id number] Prochlorperazine (Compazine) 2 mls @ 1 mls/min IV ONE ONE Stop: 01/23/19 13:52 Last Admin: 01/23/19 14:13 Dose: 1 mls/min Documented by: [id number] Piperacillin Sod/Tazobactam Sod (Zosyn) 4.5 gm in 120 mls @ 240 mls/hr IV NOW ONE Stop: 01/23/19 14:26 Last Infusion: 01/23/19 19:05 Dose: 0 mls/hr Documented by: [id number] Admin: 01/23/19 15:00 Dose: 240 mls/hr Documented by: [id number] Doxycycline Hyclate 100 mg/ (Dextrose) 110 mls @ 50 mls/hr IV NOW STA Stop: 01/23/19 16:08 Last Infusion: 01/23/19 19:05 Dose: 0 mls/hr Documented by: [id number] Admin: 01/23/19 15:13 Dose: 50 mls/hr Documented by: [id number] Magnesium Sulfate/Dextrose (Magnesium Sulfate / D5w) 1 gm in 100 mls @ 100 mls/hr IV Q1H [facility] Stop: 01/23/19 16:44 Last Infusion: 01/23/19 19:05 Dose: 0 mls/hr Documented by: [id number] Admin: 01/23/19 16:48 Dose: 100 mls/hr Documented by: [id number] Infusion: 01/23/19 16:13 Dose: 100 mls/hr Documented by: [id number] Admin: 01/23/19 15:13 Dose: 100 mls/hr Documented by: [id number] Vancomycin HCl 1,750 mg/ (Sodium Chloride) 535 mls @ 200 mls/hr IV NOW ONE Stop: 01/23/19 17:14 Last Infusion: 01/23/19 20:52 Dose: 0 mls/hr Documented by: [id number] Admin: 01/23/19 17:39 Dose: 200 mls/hr Documented by: [id number] Potassium Phosphate 9 mmol/ (Sodium Chloride) 253 mls @ 88 mls/hr IV ONE ONE Stop: 01/23/19 18:07 Last Infusion: 01/23/19 20:52 Dose: 0 mls/hr Documented by: [id number] Admin: 01/23/19 17:40 Dose: 88 mls/hr Documented by: [id number] Magnesium Sulfate/Dextrose (Magnesium Sulfate / D5w) 1 gm in 100 mls @ 100 mls/hr IV ONE ONE Stop: 01/23/19 21:29 Last Infusion: 01/23/19 22:56 Dose: 0 mls/hr Documented by: [id number] Admin: 01/23/19 21:47 Dose: 100 mls/hr Documented by: [id number] Ioversol (Optiray 320 125ml) 119 ml IV ONCE PRN PRN Reason: Interaction Checking Stop: 01/27/19 17:13 Last Admin: 01/23/19 17:14 Dose: 119 ml Documented by: [id number] Methylprednisolone (Solumedrol) 125 mg IV NOW STA Stop: 01/23/19 14:02 Last Admin: 01/23/19 14:13 Dose: 125 mg Documented by: [id number] Potassium Phosphate (Potassium Phosphate Replace) 9 mmol IV NOW STA Stop: 01/23/19 15:03 Last Admin: 01/23/19 17:40 Dose: Not Given Documented by: [id number] Medical Decision Making Differential Diagnosis Differential diagnosis includes etiologies such as sepsis, UTI, pneumonia, metabolic, electrolyte abnormalities, cardiac sources, intracerebral event, toxicologic, neurologic, as well as others were entertained. Medical Records Attestation: I reviewed the patient's medical records. Home Medications Current Medication List: was personally reviewed by me Laboratory Data Attestation: I reviewed the patient's lab results. Result diagrams: 01/23/19 13:52 01/23/19 20:29 Lab Results 01/23/19 01/23/19 01/23/19 Range/Units 13:52 13:52 13:52 WBC 16.56 H (4.8-10.8) K/uL RBC 4.39 L (4.7-6.1) M/uL Hgb 13.7 L (14.0-18.0) g/dL Hct 41.2 L (42-52) % MCV 93.8 (80-100) fL MCH 31.2 (25-34) pg MCHC 33.3 (32-36) g/dL RDW Std Deviation 46.5 H (36.4-46.3) fL RDW Coeff of Netta 13.5 (11.5-14.5) % Plt Count 267 (130-400) K/uL MPV 9.9 (7.4-10.4) fL Immature Gran % (Auto) 0.3 % Neut % (Auto) 90.1 % Lymph % (Auto) 3.6 % Person % (Auto) 5.7 % Eos % (Auto) 0.2 % Baso % (Auto) 0.1 % Immature Gran # (Auto) 0.05 H (0.00-0.02) K/uL Neut # (Auto) 14.92 H (1.4-6.5) K/uL Lymph # (Auto) 0.60 L (1.2-3.4) K/uL Person # (Auto) 0.94 H (0.11-0.59) K/uL Eos # (Auto) 0.03 (0-0.5) K/uL Baso # (Auto) 0.02 (0-0.2) K/uL PT 10.6 (9.0-12.0) Seconds INR 1.0 (0.9-1.1) APTT 21.3 (21.0-31.0) Seconds PTT Ratio 0.8 VBG pH (7.36-7.41) VBG pCO2 (38-50) mmHg VBG pO2 mmHg VBG HCO3 mmol/L VBG O2 Saturation % VBG Base Excess mEq/L Barometric Pressure mm/Hg Sodium 138 (136-145) mmol/L Potassium 4.1 (3.5-5.1) mmol/L Chloride 102 (98-107) mmol/L Carbon Dioxide 34 H (21-32) mmol/L Anion Gap 3.0 (3-11) BUN 14 (7-18) mg/dl Creatinine 1.10 (0.6-1.4) mg/dl Est Cr Clr Drug Dosing 67.3 ml/min Est GFR ( Amer) 80.1 Est GFR (Non-Af Amer) 69.1 BUN/Creatinine Ratio 12.5 (10-20) Glucose 124 H (70-99) mg/dl Lactate (0.4-2.0) mmol/L Calcium 9.5 (8.5-10.1) mg/dl Phosphorus 1.0 L* (2.5-4.9) mg/dl Magnesium 1.7 L (1.8-2.4) mg/dl Total Bilirubin 0.8 (0.2-1) mg/dl Direct Bilirubin 0.2 (0-0.2) mg/dl AST 25 (15-37) U/L ALT 31 (12-78) U/L Alkaline Phosphatase 85 (45-117) U/L Troponin I (0-0.045) ng/ml Total Protein 7.9 (6.4-8.2) gm/dl Albumin 3.9 (3.4-5.0) gm/dl Globulin 4.0 (2.5-4.0) gm/dl Albumin/Globulin Ratio 1.0 (0.9-2) 01/23/19 01/23/19 01/23/19 Range/Units 13:52 13:52 13:52 WBC (4.8-10.8) K/uL RBC (4.7-6.1) M/uL Hgb (14.0-18.0) g/dL Hct (42-52) % MCV (80-100) fL MCH (25-34) pg MCHC (32-36) g/dL RDW Std Deviation (36.4-46.3) fL RDW Coeff of Netta (11.5-14.5) % Plt Count (130-400) K/uL MPV (7.4-10.4) fL Immature Gran % (Auto) % Neut % (Auto) % Lymph % (Auto) % Person % (Auto) % Eos % (Auto) % Baso % (Auto) % Immature Gran # (Auto) (0.00-0.02) K/uL Neut # (Auto) (1.4-6.5) K/uL Lymph # (Auto) (1.2-3.4) K/uL Person # (Auto) (0.11-0.59) K/uL Eos # (Auto) (0-0.5) K/uL Baso # (Auto) (0-0.2) K/uL PT (9.0-12.0) Seconds INR (0.9-1.1) APTT (21.0-31.0) Seconds PTT Ratio VBG pH 7.45 H (7.36-7.41) VBG pCO2 46 (38-50) mmHg VBG pO2 39 mmHg VBG HCO3 31 mmol/L VBG O2 Saturation 77.4 % VBG Base Excess 6.1 mEq/L Barometric Pressure 731.6 mm/Hg Sodium (136-145) mmol/L Potassium (3.5-5.1) mmol/L Chloride (98-107) mmol/L Carbon Dioxide (21-32) mmol/L Anion Gap (3-11) BUN (7-18) mg/dl Creatinine (0.6-1.4) mg/dl Est Cr Clr Drug Dosing ml/min Est GFR ( Amer) Est GFR (Non-Af Amer) BUN/Creatinine Ratio (10-20) Glucose (70-99) mg/dl Lactate 2.1 H* (0.4-2.0) mmol/L Calcium (8.5-10.1) mg/dl Phosphorus (2.5-4.9) mg/dl Magnesium (1.8-2.4) mg/dl Total Bilirubin (0.2-1) mg/dl Direct Bilirubin (0-0.2) mg/dl AST (15-37) U/L ALT (12-78) U/L Alkaline Phosphatase (45-117) U/L Troponin I < 0.015 (0-0.045) ng/ml Total Protein (6.4-8.2) gm/dl Albumin (3.4-5.0) gm/dl Globulin (2.5-4.0) gm/dl Albumin/Globulin Ratio (0.9-2) Imaging Data Radiologist's Impression: Radiology results as stated below per my review and the radiologist's interpretation: XR chest 1V portable CLINICAL HISTORY: 68 years-old Male presenting with Sepsis. TECHNIQUE: Portable upright AP view of the chest was obtained. COMPARISON: 11/10/2018. FINDINGS: Atherosclerosis of the aortic arch. Cardiac silhouette normal in size. Pulmonary vascular prominence. Persistent elevation of the right hemidiaphragm. Coarsened lung markings. Few bandlike and nodular opacities in the right lung base. Some of these were present on prior exam. No large effusion or pneumothorax. Osseous structures normal. Upper abdomen normal. IMPRESSION: 1. Elevation of the right hemidiaphragm with scattered right basilar predominant opacities possibly atelectasis or scarring. No new focal infiltrate. 2. Volume overload. No zhen pulmonary edema. Electronically signed by: Jr Douglas M.D. 01/23/2019 1:[address] ANGIOGRAM OF THE CHEST CLINICAL HISTORY: Chest discomfort and sepsis. COMPARISON STUDY: CT scan dated 11/10/2018, chest x-ray dated 01/23/2019 TECHNIQUE: Following the IV administration of 119 mL of [id number]-320, CT angiogram of the thorax was performed from the thoracic inlet to the lung bases utilizing the pulmonary embolus protocol. Images are reviewed in the axial, sagittal, and coronal planes. IV contrast was administered without complication. MIP imaging was performed. A dose lowering technique was utilized adhering to the principles of ALARA. CT DOSE: 726.23 mGy.cm FINDINGS: There is hepatic steatosis. No pathologically enlarged axillary mediastinal or hilar lymph nodes were visualized. There was no evidence of thoracic aortic dilatation. There were no pulmonary artery filling defects to indicate acute pulmonary embolism. There are no significant pleural effusions There is pulmonary emphysema. There are fluffy right upper lobe and right lower lobe airspace opacities suspicious for pneumonia. There is elevation the right hemidiaphragm, and there are associated right lower lobe atelectatic changes. IMPRESSION: 1. No evidence of acute pulmonary embolism 2. Chronic elevation of the right hemidiaphragm 3. Interval development of right upper and lower lobe airspace opacities, suspicious for pneumonia. Imaging subsequent to treatment is recommended in follow-up. Electronically signed by: Jermaine Alfaro M.D. 01/23/2019 5:23 PM ECG Data Attestation: I personally reviewed and interpreted this ECG as follows: Indication: SOB/dyspnea Rate (beats per minute): 108 Rhythm: sinus tachycardia Findings: + other (LVH); no ST depression, no ST elevation and no acute ischemic change Blood Pressure Blood Pressure Findings: Elevated blood pressure Blood Pressure Disposition: further management by hospitalist NADIA Ortega The patient is a 68 y/o gentleman with a pmhx of CHITRA, HTN, GERD, depression, dysphagia, suspected aspiration PNM who presents to the emergency department with worsening sob, cough, congestion, n/v and fever evolving over the past 24 hours per HPI. On arrival the patient is ill appearing febrile to 38.8, HR 120s, RR upper 20s with BP stable. Patient appears clinically dry. He is drowsy but wake and alert. He has scattered wheezes and rhonchi. EKG without evidence of acute ischemia. CXR with scattered basilar opacities that of better characterized on CT. WBC 16.5. H/H 13.7/41.2 similar to prior range of values. Platelets wnl. Lactate 2.1 though chemistry without acidosis. VBG unremarkable. Phosphorus 1.0 and Magnesium 1.7 with repletion provided. LFTs and electrolytes unremarkable. Troponin negative. UA negative for infection. CTA negative for PE but demonstrates interval development of right upper and lower lobe airspace opacities, suspicious for pneumonia. Given patient's presentation of 4/4 SIRS criteria with source sepsis management initiated with blood cultures drawn and Empiric abx with Zosyn, Vancomyin, and Doxycycline. HR improving to 80-90s with initial treatment. Case was discussed with Dr. Brown, [facility] hospitalist, who will evaluate the patient for admission. Impression & Plan Sepsis, Pneumonia, Hypophosphatemia, Hypomagnesemia Critical Care Time Critical Care Time: Yes Total Critical Care Time: 95 I have personally spent greater than 95 minutes of critical care time in the direct management of this patient. This includes bedside care, interpretation of diagnostic studies, and testing, discussion with consultants, patient, and family members, and other required patient management activities. This 95 minutes is in excess of all separately billable procedures. Discharge Plan Visit Data *Final* Discharge Date/Time: 01/23/19 19:29 Chief Complaint: Respiratory Problems Stated Complaint: 102.7 TEMP, LOW OXYGEN, NOT QUITE WITH IT ED Provider: Francisco Gallo Discharge Problem: Sepsis, Pneumonia, Hypophosphatemia, Hypomagnesemia Patient Disposition: Admitted As Inpatient Discharge Instructions Interventions: ED Discharge Assessment Last Done: 01/23/19 19:29 Discharge Problem: Sepsis Qualifiers: Sepsis type: sepsis due to unspecified organism Sepsis acute organ dysfunction status: unspecified Qualified Code(s): A41.9 - Sepsis, unspecified organism Pneumonia Qualifiers: Pneumonia type: due to unspecified organism Laterality: unspecified laterality Lung location: unspecified part of lung Qualified Code(s): J18.9 - Pneumonia, unspecified organism The scribe's documentation has been prepared under my direction and personally reviewed by me in its entirety. I confirm that the note above accurately reflects all work, treatment, procedures, and medical decision making performed by me.
--- NOTE | 2019-01-24 02:39 | Pharmacy Report ---
Pharmacy Abx Initial Consult - Date of Service January 24, 2019 - Pharmacy Dosing Scope Date of Consult: 01/23/19 Consultation requested by: Dr. Brown Pharmacy is consulted to initiate vancomycin and Zosyn IV dosing therapy, order appropriate labs and adjust drug dose/frequency. - Subjective The patient is a 68 year old M admitted on 01/23/19 18:45. - Objective Height: 5 ft 10 in Weight: 93.9 kg Vital Signs (Past 12hrs): Vital Signs Temp Pulse Pulse Resp BP BP BP 01/23/19 23:34 36.8 C 75 19 99/41 L 01/23/19 20:27 36.4 C L 75 18 106/61 01/23/19 19:00 89 13 132/86 01/23/19 18:30 85 14 137/81 01/23/19 18:00 91 H 19 109/81 01/23/19 17:30 92 H 14 99/60 L 01/23/19 17:27 92 H 15 97/60 L 01/23/19 17:00 95 H 12 01/23/19 16:30 86 15 01/23/19 16:00 101 H 23 113/72 01/23/19 15:30 106 H 14 127/77 01/23/19 15:00 107 H 19 93/75 L Pulse Ox 01/23/19 23:34 95 01/23/19 20:27 94 01/23/19 19:00 01/23/19 18:30 01/23/19 18:00 01/23/19 17:30 01/23/19 17:27 01/23/19 17:00 01/23/19 16:30 01/23/19 16:00 01/23/19 15:30 01/23/19 15:00 Lab Results (24hrs): Laboratory Tests (24 Hours) 01/23/19 01/23/19 01/23/19 20:29 13:52 13:52 WBC 16.56 H Neut # (Auto) 14.92 H Creatinine 1.17 1.10 Est Cr Clr Drug Dosing 70.5 67.3 Micro Results: 01/23/19 13:50 Aerobic Blood Culture - Pending Blood Anaerobic Blood Culture - Pending 01/23/19 13:52 Aerobic Blood Culture - Pending Blood Anaerobic Blood Culture - Pending - Risk Factors for Resistance * Hospitalization for 48 hours or more within the past 90 days * Antimicrobial use within the last 90 days (vancomycin, cefepime, Levaquin, and Unasyn) - Assessment & Plan Assessment 68 year old M admitted with excessive lethargy. Possible pneumonia. Wears oxygen chronically (4 liters at home) Plan vancomycin/Zosyn for treatment of possible pneumonia Vancomycin IV * Estimated PK Parameters: Vd 0.7 L/kg, Sylvester 0.076 hr-1, t1/2 9.1 hr * Loading dose: 1750 mg (18.6 mg/kg) * Maintenance dose: 1500 mg IV (15 mg/kg) every 12 hours * Goal trough level for pulmonary infection : 15 to 20 mcg/mL * Trough - not ordered empiric indication Piperacillin/tazobactam * 4.5 g bolus administered over 30 minutes, then 3.375 g IV extended infusion every 8 hours for CrCl greater than 20 mL/min Pharmacy will continue to follow and will adjust dose/frequency as necessary. Thank you.
[2019-01-24] MEDS ORDERED: VANCOMYCIN HCL 1,500 MG in SODIUM CHLORIDE 0.9% 500 ML IV SCH (04:00)
[2019-01-24] MEDS: PIPERACILLIN/TAZOBACTAM 3.375 GM in DEXTROSE 5% 100 ML IV SCH (04:16)
[2019-01-24 07:18] LABS: Hematocrit (blood only) 34.3 % (42-52); Hemoglobin 11.1 g/dL (14.0-18.0); Mean Corpuscular Hemoglobin 30.4 pg (25-34); Mean Corpuscular Hgb Conc 32.4 g/dL (32-36); Mean Platelet Volume 9.7 fL (7.4-10.4); Platelet Count 236 K/uL (130-400); RDW Coefficient of Variation 13.7 % (11.5-14.5); RDW Standard Deviation 47.3 fL (36.4-46.3); Red Blood Count 3.65 M/uL (4.7-6.1); White Blood Count 23.22 K/uL (4.8-10.8)
[2019-01-24 07:43] LABS: Albumin Level 2.9 gm/dl (3.4-5.0); BUN Creatinine Ratio 16.3 (10-20); Calcium 8.3 mg/dl (8.5-10.1); Creatinine Clr Calc Pharmacy 83.7 ml/min; Est GFR (African American) 89.9; Est GFR (Non-African American) 77.5; Potassium 4.3 mmol/L (3.5-5.1)
[2019-01-24 07:46] LABS: Basophils # (auto) 0.01 K/uL (0-0.2); Immature Granulocytes # (auto) 0.11 K/uL (0.00-0.02); Immature Granulocytes % (auto) 0.5 %; Lymphocytes # (auto) 0.95 K/uL (1.2-3.4); Lymphocytes % (auto) 4.1 %; Monocytes # (auto) 0.51 K/uL (0.11-0.59); Monocytes % (auto) 2.2 %; Neutrophils # (auto) 21.64 K/uL (1.4-6.5); Neutrophils % (auto) 93.2 %
[2019-01-24 07:48] LABS: Albumin Globulin Ratio 0.9 (0.9-2); Bilirubin,Total 1.1 mg/dl (0.2-1); Globulin 3.4 gm/dl (2.5-4.0); Total Protein 6.3 gm/dl (6.4-8.2)
[2019-01-24 08:06] LABS: Estimated Average Glucose 117 mg/dl; Hemoglobin A1C 5.7 % (4.5-5.6)
[2019-01-24] MEDS ORDERED: INFLUENZA ADMINISTRATION CHARGE ONE (09:00)
[2019-01-24] MEDS ORDERED: AMLODIPINE BESYLATE 5 MG TAB PO SCH (09:00)
[2019-01-24] MEDS ORDERED: INFLUENZA VIRUS QUAD VACCINE 0.5 ML SYR IM ONE (09:00)
[2019-01-24] MEDS: GABAPENTIN 400 MG CAP PO SCH ×3 (09:02→20:35)
[2019-01-24] MEDS: methylPREDNISolone 40 MG in SYRINGE 0 ML IV SCH (09:02)
[2019-01-24] MEDS: POLYETHYLENE (MIRALAX) 17 GM PACK PO PRN (09:02)
[2019-01-24] MEDS: ASPIRIN 81 MG ECTAB PO SCH (09:03)
[2019-01-24] MEDS: MELOXICAM 7.5 MG TAB PO SCH (09:03)
[2019-01-24] MEDS: PANTOprazole 40 MG TAB PO SCH ×2 (09:03→20:36)
[2019-01-24] MEDS: CHECK FENTANYL PATCH PLACEMENT SCH ×2 (09:04→16:08)
[2019-01-24] MEDS: VENLAFAXINE HCL XR 37.5 MG CAPXR PO SCH ×2 (09:04→20:38)
--- NOTE | 2019-01-24 11:25 | Hospitalist Progress Note ---
Date of Service January 24, 2019 Assessment & Plan (1) Sepsis: Rapid recovery Can transfer off PCU (2) Aspiration pneumonia: Clear history of continued aspiration pneumonias. Awaiting EGD outpatient in next few weeks however reports no dysphagia. Possible silent reflux causing aspirations as on PPI therefore not acidic - discussed amlodipine and possibly it started when he was put on this medication therefore amlodipine discontinued and will monitor his BP Consult CLP Change antibiotics to Unasyn -> Augmentin after 48 hours. Recurrent hospitalizations therefore at risk for resistance bacteria however dramatic improvement and MRSA node swab negative. Given severity will continue steroids with prednisone 40mg daily. (3) Hypophosphatemia: Suspect second phosphorus represents infusion rather than total body store Repeat PO in AM (4) Chronic respiratory failure: Since June he has had recurrent aspiration pneumonias. Due outpatient EGD in next 1-2 weeks as per patient. Esophageal dysmotility on prior video swallow. 4L at baseline now (5) Depression: Continue home medicine venlafaxine 37.5 mg p.o. twice daily (6) GERD (gastroesophageal reflux disease): Pantoprazole 40mg BID (7) Chronic back pain: Continue fentanyl patch every other day. Continue gabapentin 800 mg p.o. 3 times daily. Continue meloxicam 7.5 p.o. daily (discussed side effect of gastritis) (8) Hypertension: Stop amlodipine due to side effect of relaxation of LES Subjective Patient reports much improved since he was admitted. Now down to 3 L of oxygen. Shortness of breath at rest. Talking full sentences. Feels the symptoms may have started when he was put on amlodipine. To endoscopy in 1 to 2 weeks. No dysphagia to solids or liquids. Feels he has liquid in his mouth which just goes down the wrong way. Improves with elevating the head of the bed and with neck hyperextended. Review of Systems Review of Systems: All systems reviewed & are unremarkable except as noted in HPI & below Physical Exam Constitutional: WD/WN, vitals as above (on 3L/min O2) Eyes: no conjunctival abnormality ENMT: external ear and nose normal, oropharynx normal Neck: trachea midline Respiratory: normal respiratory effort, lungs clear to auscultation Auscultation: + crackles and + bronchovesicular breath sounds; no wheezes Cardiovascular: RRR, no murmur, no edema Gastrointestinal (Abdomen): normal bowel sounds, soft, nontender, no hepatosplenomegaly Musculoskeletal: no cyanosis or clubbing, extremities motor strength 5/5 Skin: no rashes, warm and dry Neurologic: patellar DTR's 2+ bilat, sensation intact Psychiatric: A+Ox3, euthymic affect Results & Data Vital Signs (Past 12 Hours) Vital Signs Temp Pulse Resp BP BP Pulse Ox 01/24/19 07:38 97.5 F L 71 20 132/73 95 01/24/19 04:25 97.5 F L 73 18 108/61 93 01/23/19 23:34 98.2 F 75 19 99/41 L 95 PG Care Time/CCT Total # of Minutes Spent Total Time Spent with Patient: Total time spent is greater than 50% in coordination of care (as documented) at patient's floor/unit and/or counseling patient: (1) Sepsis Sepsis acute organ dysfunction status: unspecified Sepsis type: sepsis due to unspecified organism Qualified Code(s): A41.9 - Sepsis, unspecified organism (2) Hypertension Hypertension type: essential hypertension Qualified Code(s): I10 - Essential (primary) hypertension
[2019-01-24] MEDS: AMPICILLIN/SULBACTAM SOD 3,000 MG in 0.9 % SODIUM CHLORIDE 100 ML IV SCH ×2 (12:47→18:47)
[2019-01-24] MEDS: ENOXAPARIN INJ 40 MG/0.4 ML SYR SQ SCH (20:39)
[2019-01-24] MEDS: PRAMIPEXOLE DIHYDROCHLO 0.25 MG TAB PO SCH (20:41)
[2019-01-24] MEDS: CYCLOBENZAPRINE HCL 5 MG TAB PO PRN (21:09)
[2019-01-25] MEDS: AMPICILLIN/SULBACTAM SOD 3,000 MG in 0.9 % SODIUM CHLORIDE 100 ML IV SCH ×3 (00:15→12:26)
[2019-01-25] MEDS: CHECK FENTANYL PATCH PLACEMENT SCH ×3 (00:20→15:23)
[2019-01-25 07:54] LABS: Basophils # (auto) 0.01 K/uL (0-0.2); Eosinophils # (auto) 0.02 K/uL (0-0.5); Eosinophils % (auto) 0.1 %; Hematocrit (blood only) 34.7 % (42-52); Hemoglobin 11.2 g/dL (14.0-18.0); Immature Granulocytes % (auto) 0.5 %; Lymphocytes # (auto) 1.73 K/uL (1.2-3.4); Lymphocytes % (auto) 7.8 %; Mean Corpuscular Hemoglobin 30.9 pg (25-34); Mean Corpuscular Hgb Conc 32.3 g/dL (32-36); Mean Corpuscular Volume 95.9 fL (80-100); Mean Platelet Volume 9.7 fL (7.4-10.4); Monocytes # (auto) 1.21 K/uL (0.11-0.59); Monocytes % (auto) 5.5 %; Neutrophils % (auto) 86.1 %; Platelet Count 253 K/uL (130-400); RDW Standard Deviation 49.6 fL (36.4-46.3); Red Blood Count 3.62 M/uL (4.7-6.1); White Blood Count 22.07 K/uL (4.8-10.8)
[2019-01-25 08:27] LABS: Albumin Level 3.1 gm/dl (3.4-5.0); BUN Creatinine Ratio 20.8 (10-20); Calcium 8.6 mg/dl (8.5-10.1); Est GFR (African American) 102.5; Est GFR (Non-African American) 88.5; Phosphorus 2.9 mg/dl (2.5-4.9); Potassium 4.3 mmol/L (3.5-5.1)
[2019-01-25 08:32] LABS: Bilirubin,Total 0.4 mg/dl (0.2-1); Globulin 3.2 gm/dl (2.5-4.0); Total Protein 6.3 gm/dl (6.4-8.2)
[2019-01-25] MEDS: predniSONE 20 MG TAB PO SCH (08:45)
[2019-01-25] MEDS: VENLAFAXINE HCL XR 37.5 MG CAPXR PO SCH ×2 (08:45→19:41)
[2019-01-25] MEDS: MELOXICAM 7.5 MG TAB PO SCH (08:45)
[2019-01-25] MEDS: ASPIRIN 81 MG ECTAB PO SCH (08:46)
[2019-01-25] MEDS: PANTOprazole 40 MG TAB PO SCH ×2 (08:46→19:40)
[2019-01-25] MEDS: GABAPENTIN 400 MG CAP PO SCH ×3 (08:46→19:40)
[2019-01-25] MEDS: OXYCODONE/ACETAMINOPHEN 5mg/325mg TAB PO PRN ×2 (08:50→19:45)
[2019-01-25] MEDS: POLYETHYLENE (MIRALAX) 17 GM PACK PO PRN (12:25)
[2019-01-25] MEDS: AMOXICILLIN/CLAVULANATE 875 MG TAB PO SCH (17:49)
[2019-01-25] MEDS: ENOXAPARIN INJ 40 MG/0.4 ML SYR SQ SCH (19:40)
[2019-01-25] MEDS: FEXOFENADINE 60 MG TAB PO SCH (19:41)
[2019-01-25] MEDS: PRAMIPEXOLE DIHYDROCHLO 0.25 MG TAB PO SCH (20:55)
[2019-01-25] MEDS: CYCLOBENZAPRINE HCL 5 MG TAB PO PRN (20:55)
--- NOTE | 2019-01-25 22:48 | Hospitalist Progress Note ---
Date of Service January 25, 2019 Assessment & Plan (1) Aspiration pneumonia: Clear history of continued aspiration pneumonias. 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 Given continued aspiration he is a high risk of re- admission and recommend staying overnight for stability Given severity will continue steroids with prednisone 40mg daily. Trial of breanna as patient feels postnasal drip. Coag negative staph on blood culture 1/2 likely contaminant Pulmonary emphysema on CT - recommend outpatient PFTs when well Raised right hemidiaphragm - follow up Dr Zhao, ?paralyzed from multiple possible prior injuries or surgeries -> predisposed to pneumonia from right lower lobe atelectasis (2) Chronic respiratory failure: Since June he has had recurrent aspiration pneumonias. Due outpatient EGD in next 1-2 weeks as per patient. Esophageal dysmotility on prior video swallow. 3L at baseline (3) Hypophosphatemia: resolved (4) Depression: Continue home medicine venlafaxine 37.5 mg p.o. twice daily (5) GERD (gastroesophageal reflux disease): Pantoprazole 40mg BID (6) Chronic back pain: Continue fentanyl patch every other day. Continue gabapentin 800 mg p.o. 3 times daily. Continue meloxicam 7.5 p.o. daily (discussed side effect of gastritis) (7) Hypertension: Stop amlodipine due to side effect of relaxation of LES (8) DVT prophylaxis: Lovenox 40mg SQ daily Subjective Patient reports much nearly back to his baseline. Now down to 3 L of oxygen. Talking full sentences. Feels the symptoms may have started when he was put on amlodipine. Asking if records were obtained [facility] regarding when [facility] was [facility] - no record of this found. Review of Systems Review of Systems: All systems reviewed & are unremarkable except as noted in HPI & below Physical Exam Constitutional: WD/WN, vitals as above (on 3L/min O2) + obese Eyes: no conjunctival abnormality Neck: trachea midline Respiratory: normal respiratory effort, lungs clear to auscultation Auscultation: + diminished lung sounds (bibasal R > L); no crackles and no wheezes Cardiovascular: RRR, no murmur, no edema Gastrointestinal (Abdomen): normal bowel sounds, soft, nontender, no hepatosplenomegaly Musculoskeletal: no cyanosis or clubbing, extremities motor strength 5/5 Skin: no rashes, warm and dry Neurologic: patellar DTR's 2+ bilat, sensation intact Psychiatric: A+Ox3, euthymic affect Lymphatic: no cervical or axillary lymphadenopathy Results & Data Vital Signs (Past 12 Hours) Vital Signs Temp Pulse Resp BP Pulse Ox 01/25/19 19:47 98.2 F 80 20 159/81 H 92 01/25/19 15:00 98.1 F 71 18 122/79 96 PG Care Time/CCT Total # of Minutes Spent Total Time Spent with Patient: Total time spent is greater than 50% in coordination of care (as documented) at patient's floor/unit and/or counseling patient: (1) Hypertension Hypertension type: essential hypertension Qualified Code(s): I10 - Essential (primary) hypertension
[2019-01-26] MEDS: CHECK FENTANYL PATCH PLACEMENT SCH ×2 (00:03→10:16)
[2019-01-26 07:21] LABS: Basophils # (auto) 0.02 K/uL (0-0.2); Basophils % (auto) 0.1 %; Eosinophils # (auto) 0.11 K/uL (0-0.5); Eosinophils % (auto) 0.7 %; Hemoglobin 11.4 g/dL (14.0-18.0); Immature Granulocytes # (auto) 0.46 K/uL (0.00-0.02); Immature Granulocytes % (auto) 3.1 %; Lymphocytes # (auto) 2.84 K/uL (1.2-3.4); Lymphocytes % (auto) 19.2 %; Mean Corpuscular Hemoglobin 31.1 pg (25-34); Mean Corpuscular Hgb Conc 32.6 g/dL (32-36); Mean Corpuscular Volume 95.4 fL (80-100); Mean Platelet Volume 9.7 fL (7.4-10.4); Monocytes # (auto) 1.23 K/uL (0.11-0.59); Monocytes % (auto) 8.3 %; Neutrophils # (auto) 10.13 K/uL (1.4-6.5); Neutrophils % (auto) 68.6 %; Platelet Count 264 K/uL (130-400); RDW Coefficient of Variation 13.9 % (11.5-14.5); RDW Standard Deviation 48.5 fL (36.4-46.3); Red Blood Count 3.67 M/uL (4.7-6.1); White Blood Count 14.79 K/uL (4.8-10.8)
[2019-01-26 07:59] LABS: BUN Creatinine Ratio 18.1 (10-20); Bilirubin,Total 0.4 mg/dl (0.2-1); Calcium 8.7 mg/dl (8.5-10.1); Creatinine Clr Calc Pharmacy 86.3 ml/min; Est GFR (African American) 93.2; Est GFR (Non-African American) 80.5; Potassium 4.1 mmol/L (3.5-5.1)
[2019-01-26 08:02] LABS: Albumin Globulin Ratio 0.9 (0.9-2); Globulin 3.4 gm/dl (2.5-4.0); Total Protein 6.4 gm/dl (6.4-8.2)
--- NOTE | 2019-01-26 08:56 | XRay Report ---
XR chest 2V routine HISTORY: persistent WBC, hypoxia ?worsening PNA COMPARISON: Chest 01/23/2019. FINDINGS: Persistent elevation of the right hemidiaphragm. Improved aeration within the right lung wi th near complete resolution of the airspace opacities. This may represent a resolving pneumonia or re solving pulmonary edema. Bibasilar linear densities consistent with subsegmental atelectasis. No pneu mothorax. The heart remains stable in size. IMPRESSION: Improved aeration within the right lung which may represent a resolving pneumonia or resolving pulmon tyler edema. Electronically signed by: Dandy Chawla M.D. 01/26/2019 8:55 AM
[2019-01-26] MEDS: OXYCODONE/ACETAMINOPHEN 5mg/325mg TAB PO PRN ×2 (10:13→15:22)
[2019-01-26] MEDS: AMOXICILLIN/CLAVULANATE 875 MG TAB PO SCH (10:13)
[2019-01-26] MEDS: GABAPENTIN 400 MG CAP PO SCH ×2 (10:14→15:22)
[2019-01-26] MEDS: VENLAFAXINE HCL XR 37.5 MG CAPXR PO SCH (10:14)
[2019-01-26] MEDS: PANTOprazole 40 MG TAB PO SCH (10:14)
[2019-01-26] MEDS: ASPIRIN 81 MG ECTAB PO SCH (10:15)
[2019-01-26] MEDS: MELOXICAM 7.5 MG TAB PO SCH (10:15)
[2019-01-26] MEDS: predniSONE 20 MG TAB PO SCH (10:15)
[2019-01-26] MEDS ORDERED: fentaNYL 100 MCG/HR TDSY TD SCH (10:15)
[2019-01-26] MEDS: FEXOFENADINE 60 MG TAB PO SCH (11:03)
--- NOTE | 2019-01-26 12:46 | Cardiology Consultation ---
Date of Consultation January 26, 2019 Assessment & Plan (1) Atypical chest pain: I do not believe the symptoms he describes are likely related to coronary disease. I do not believe this represents angina, coronary insufficiency or an unstable cardiac process. I think he can safely discharged home with routine follow-up by his primary care physician. He did have some elevated cardiac biomarkers during prior admissions. He did not have any elevations during this admission. On prior admissions he was noted to be significantly hypoxic, and I suspect does mild elevations were more related to demand ischemia in the setting of significant hypoxia rather than related to coronary disease or unstable angina. He does not describe symptoms consistent with coronary insufficiency or angina. I do not believe he requires outpatient stress testing for the symptoms described. He has had multiple pulmonary issues and trauma to the thoracic cavity. Does report some paresthesias in the arms as well at times. The symptoms are similar in character. I suspect that the etiology of his symptoms is more musculoskeletal or possibly related to transient nerve pain. Present on Admission?: Yes (2) Valvular heart disease: He was noted on prior echocardiogram to have mild mitral regurgitation. And aortic sclerosis. This can be followed over time. (3) Pulmonary hypertension: He was noted to have elevated pulmonary pressures prior echocardiogram. He also was noted to have elevated N terminal proBNP previously although not this admission. Both of these findings are likely related to his primary pulmonary disease. History of Present Illness Reason for Consultation: Chest pain Requesting Physician: Arlin Attending Physician: Arnold Oliveros MD History of Present Illness Patient is a 68-year-old gentleman without a known history of cardiac disease who was admitted for pulmonary symptoms and treated for pneumonia. During the course of his admission he did mention symptoms of chest pain. Patient states that he will have intermittent episodes of chest discomfort which occur approximately twice daily. These episodes are characterized by stabbing or shooting sensation in the left precordium. The episodes themselves last a few seconds and certainly less than 1 minute. They do not appear to be associated with any particular activity or change in position. He occasionally will notice some of the symptoms with deep inspiration but not reliably so. Patient states that he has been having the symptoms intermittently for several months. They may have increased in frequency recently but not changed in character or duration. He does not appear to have any associated symptoms. Overall, he is an active individual. 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 He ambulates and can carry equipment without limiting dyspnea. He has not report any exertional chest pains. He is currently feeling well. He is not currently experiencing symptoms of chest discomfort. He states that his breathing is currently good he is anxious for discharge. Allergies Allergy/AdvReac Type Severity Reaction Status Date / Time bee venom protein (honey bee) Allergy Intermediate EXCESSIVE Verified 01/23/19 14:41 SWELLING AT SITE sulfamethoxazole Allergy Intermediate TONGUE Verified 01/23/19 14:41 SWELLS, WHITE BLISTERS IN MOUTH. trimethoprim Allergy Intermediate TONGUE Verified 01/23/19 14:41 SWELLS, WHITE BLISTERS IN MOUTH. adhesive Allergy Mild SKIN Verified 01/23/19 14:41 IRRITATION Bactrim Allergy Unknown . Unverified 07/23/15 11:07 morphine AdvReac Intermediate PROJECTILE Verified 01/23/19 14:41 VOMITING Home Medications Home Medications Medication Instructions Recorded Confirmed Type amlodipine 5 mg PO DAILY 06/26/18 01/23/19 History fentanyl 1 patch TRANSDERMAL Q OTHER DAY 06/26/18 01/23/19 History meloxicam 7.5 mg PO DAILY 06/26/18 01/23/19 History omeprazole 20 mg PO BID 06/26/18 01/23/19 History venlafaxine [Effexor XR] 37.5 mg PO BID 06/26/18 01/23/19 History aspirin [Aspirin Low Dose] 81 mg PO DAILY #30 tab 09/11/18 01/23/19 Rx pramipexole 0 mg PO HS 11/10/18 01/23/19 History gabapentin 800 mg PO TID 01/23/19 01/23/19 History Patient History Medical History Hypercapnia (Acute) Non-ST elevation DE (NSTEMI) (Acute) Elevated brain natriuretic peptide (BNP) level (Acute) Metabolic encephalopathy Headache (Acute) Altered mental state (Acute) Pleural effusion, right Lymphadenopathy Depression GERD (gastroesophageal reflux disease) Chronic back pain Hypertension Pneumonia (Acute) Sepsis Hypoxia (Acute) Fever (Acute) Right upper quadrant abdominal pain (Acute) Leukocytosis (Acute) Facial laceration (Resolved) Hypoxia (Acute) Leukocytosis Family History Other Cancer Gallbladder disease Hypertension Social History Preferred Language: Finnish Communication Ability: Effective Front Desk Administrator Required: No Beliefs That Will Affect Care: Anglican Anglican Beliefs: Jain marital status: Current Living Situation: Spouse current occupational status: retired Feels Safe at Home: Yes Smoking Status: Former smoker Tobacco Type: cigarettes ; Second Hand Exposure: No ; Hx Alcohol Use: No Hx Substance Use: No Review of Systems Review of Systems: All systems reviewed & are unremarkable except as noted in HPI & below Per HPI. No recent constitutional symptoms. No sense of palpitation. Physical Exam Physical Exam: The patient is alert and oriented. Mood and affect appeared normal. He answered all questions appropriately. Wearing supplemental oxygen HEENT: Pupils are equal and reactive to light and accommodation. Extraocular movements are intact. The sclerae are anicteric. Neuro: Cranial nerves intact Neck: Patient's neck is supple. He has palpable carotid pulses bilaterally without bruits on auscultation. There is no evidence of jugular venous distention. The thyroid is not enlarged. Lungs: Clear to auscultation bilaterally. He has good air movement without use of accessory muscles. No rales wheezes or rhonchi. Mildly reduced breath sounds on the right. Cardiac: Heart demonstrates a regular rate and rhythm. Normal S1 and S2. Crescendo systolic murmur. Pulses: The patient has palpable radial pulses bilaterally that are equal in intensity Extremities: There was no evidence of hypoperfusion. There is no cyanosis or clubbing. There is no edema. Skin: I did not appreciate any rashes on examination today. Results & Data Vital Signs (Past 12 Hours) Vital Signs Temp Pulse Resp BP Pulse Ox 01/26/19 07:00 36.6 C 62 20 142/87 H 95 Laboratory Results Abnormal Lab Results 01/26/19 01/26/19 06:48 06:48 WBC 14.79 H RBC 3.67 L Hgb 11.4 L Hct 35.0 L MCV 95.4 MCH 31.1 MCHC 32.6 RDW Std Deviation 48.5 H RDW Coeff of Netta 13.9 Plt Count 264 MPV 9.7 Immature Gran % (Auto) 3.1 Neut % (Auto) 68.6 Lymph % (Auto) 19.2 [place] % (Auto) 8.3 Eos % (Auto) 0.7 Baso % (Auto) 0.1 Immature Gran # (Auto) 0.46 H Neut # (Auto) 10.13 H Lymph # (Auto) 2.84 [place] # (Auto) 1.23 H Eos # (Auto) 0.11 Baso # (Auto) 0.02 Sodium 144 Potassium 4.1 Chloride 108 H Carbon Dioxide 33 H Anion Gap 2.0 L BUN 18 Creatinine 0.97 Est Cr Clr Drug Dosing 86.3 Est GFR ( Amer) 93.2 Est GFR (Non-Af Amer) 80.5 BUN/Creatinine Ratio 18.1 Glucose 96 Calcium 8.7 Total Bilirubin 0.4 AST 12 L ALT 20 Alkaline Phosphatase 59 Total Protein 6.4 Albumin 3.0 L Globulin 3.4 Albumin/Globulin Ratio 0.[address] scan of the chest suggested right lung pneumonia and chronically elevated right hemidiaphragm An echocardiogram performed in August of 2018 revealed preserved LV systolic function without regional wall motion abnormalities. Mild mitral regurgitation and aortic valve sclerosis. Pulmonary pressures were elevated. ECG Additional Comments: EKG at the time of admission reveals sinus tachycardia without acute ST or T-wave changes PG Care Time/CCT Total # of Minutes Spent Total Time Spent with Patient: Total time spent is greater than 50% in coordination of care (as documented) at patient's floor/unit and/or counseling patient:
--- NOTE | 2019-01-26 14:02 | Discharge Summary ---
Date of Service January 26, 2019 Admission HPI Per Admitting Provider Patient is a 68 years old male with past medical history of chronic hypoxia on 4 L of oxygen 24 hours 7 days a week, hypertension depression, GERD, coronary artery disease presents to the emergency room with a complaint of increased sleepiness, tiredness generalized malaise and cough. Patient supposed to go to have evaluation for a slight obstructive sleep apnea but due to his sleeping habits they have not been able to completed in the sleep lab. Patient is poor historian. He he is very sleepy but arousable. His said that he did not sleep all night long because of the febrile illness and this is usually how he sleeps and he is very very tired. Per patient since patient is very sleepy and difficult to communicate he is review of system patient was sweating at home and had subjective fever. Per his he did not complain of headache or chest pain abdominal pain frequency or urgency and he did not have diarrhea nor melena. Elevated white blood cell count of 16.56, hemoglobin 13.7 hematocrit 41.2 platelets 267. PT 10.6 INR 1 APTT 21.3. Sodium 138, potassium 4.1 chloride 102 BUN 14 creatinine 1.1 GFR 69.1 lactic acid 2.1Magnesium 1.7. Troponin [address] of the chest shows.No evidence of acute pulmonary embolism. Interval development of right upper and lower lobe airspace opacities suspicious for pneumonia. There is pulmonary emphysema. Decision was made to admit patient for sepsis and pneumonia to the PCU on telemetry for IV antibiotics with expectation to stay to stay more than 2 nights. Admission Exam Per Admitting Provider Constitutional: WD/WN, vitals as above well developed Very sleepy Eyes: PERRL, conjunctivae normal, anicteric sclerae ENMT: external ear and nose normal, oropharynx normal Neck: trachea midline, no thyromegaly Respiratory: normal respiratory effort, lungs clear to auscultation Auscultation: + crackles, + wheezes and + bronchovesicular breath sounds Cardiovascular: RRR, no murmur, no edema Gastrointestinal (Abdomen): normal bowel sounds, soft, nontender, no hepatosplenomegaly Skin: Difficult to conduct the exam patient is very sleepy Neurologic: patellar DTR's 2+ bilat, sensation intact Psychiatric: A+Ox3, euthymic affect Lymphatic: no cervical or axillary lymphadenopathy Principal Diagnosis Sepsis Acute on chronic hypoxic respiratory failure Aspiration Pneumonia Right lower lobe atelectasis Atypical chest pain Discharge Exam Constitutional WD/WN, vitals as above (on 2.5L/min O2) + obese Eyes PERRL, conjunctivae normal, anicteric sclerae no conjunctival abnormality ENMT external ear and nose normal, oropharynx normal Neck normal visual inspection, trachea midline and + thick neck Respiratory normal respiratory effort, lungs clear to auscultation Auscultation: + diminished lung sounds (bibasal R > L); no crackles and no wheezes Cardiovascular RRR, no murmur, no edema Gastrointestinal (Abdomen) normal bowel sounds, soft, nontender, no hepatosplenomegaly Musculoskeletal no cyanosis or clubbing, extremities motor strength 5/5 Skin no rashes, warm and dry Neurologic moves all extremities and awake; no focal motor deficits and not confused Speech / Cognition: normal speech Motor/Sensory: no pronator drift and no sensory deficit Psychiatric A+Ox3, euthymic affect Lymphatic no cervical or axillary lymphadenopathy Discharge Data Allergies Allergy/AdvReac Type Severity Reaction Status Date / Time bee venom protein (honey bee) Allergy Intermediate EXCESSIVE Verified 01/23/19 14:41 SWELLING AT SITE sulfamethoxazole Allergy Intermediate TONGUE Verified 01/23/19 14:41 SWELLS, WHITE BLISTERS IN MOUTH. trimethoprim Allergy Intermediate TONGUE Verified 01/23/19 14:41 SWELLS, WHITE BLISTERS IN MOUTH. adhesive Allergy Mild SKIN Verified 01/23/19 14:41 IRRITATION Bactrim Allergy Unknown . Unverified 07/23/15 11:07 morphine AdvReac Intermediate PROJECTILE Verified 01/23/19 14:41 VOMITING Consultations 01/23/19 15:02 ED Decision to Admit Stat 01/26/19 12:09 Consult Cardiology Routine Ordered Studies 01/23/19 14:03 CT angio chest PE protocol Stat Hospital Course (1) Aspiration pneumonia: Clear history of continued aspiration pneumonias. Patient already has plans to follow up with GI to discuss EGD Stop amlodipine as likely exacerbating No aspiration with IMPLEMENTATION DIRECTOR, suspect esophageal process (prior esophageal dysmotility on video swallow) Switched to Augmentin. Steroids due to severity of pneumonia however these can be stopped on discharge. Coag negative staph on blood culture 1/2 likely contaminant Pulmonary emphysema on CT - recommend outpatient PFTs when well Raised right hemidiaphragm - follow up Dr Zhao, ?paralyzed from multiple possible prior injuries or surgeries -> predisposed to pneumonia from chronic right lower lobe atelectasis (2) Chronic respiratory failure: Since June he has had recurrent aspiration pneumonias. Due outpatient EGD in next 1-2 weeks as per patient. Esophageal dysmotility on prior video swallow. 3L at baseline (3) Hypophosphatemia: resolved after IV supplentation (4) Depression: Continue home medicine venlafaxine 37.5 mg p.o. twice daily (5) GERD (gastroesophageal reflux disease): Pantoprazole 40mg BID Amlodipine stopped as concern contributing towards aspirations (6) Chronic back pain: Continue fentanyl patch every other day. Continue gabapentin 800 mg p.o. 3 times daily. Continue meloxicam 7.5 p.o. daily (discussed side effect of gastritis). Follow up with pain management as previously arranged (7) Hypertension: Stop amlodipine due to side effect of relaxation of LES. Consider ACEi if blood pressure uncontrolled off this medication (8) Atypical chest pain: Reviewed by cardiology. Recommend outpatient follow up with Dr Obrien. Total Time Total Time Spent Total Time Spent (In Minutes): 70 Total Time Includes: Examination of the Patient, Discharge Planning, Medication Reconciliation and Communication With Other Providers Discharge Plan Discharge Items Patient Disposition: Home - Self-Care Reason For Visit: SEPSIS Discharge Diagnosis: Sepsis Acute on chronic hypoxic respiratory failure Aspiration Pneumonia Right lower lobe atelectasis Atypical chest pain Condition on Discharge: Fair Activity: Resume your previous activity Non-emergency contact: Primary Care Provider Call non-emergency contact if: you have any medication questions Follow-up/Referrals: Nir Obrien MD [Physician] - (2-4 weeks for atypical chest pain) PCP,NO [Primary Care Provider] - Diet: Heart Healthy Addtl Attending Provider Instructions: You were diagnosed with aspiration pneumonia. This was treated with IV antibiotics and steroids. No further steroids required on discharge. Continue oral antibiotics as prescribed below. Concern your are having recurrent aspirations from reflux and therefore would recommend stopping amlodipine as this can make your symptoms worse. Recommend sticking to a reflux diet (see attached information sheet below). Please also follow up with Dr Zhao as previously arranged. You also described some atypical chest pain and were reviewed by cardiology. Please follow up with cardiology in the next 2-4 weeks (see phone number above). Continue 2L of oxygen at rest and 3-4L of oxygen on exertion - this can be weaned off as an outpatient with your PCP. Pending Studies at Discharge: No Stand-Alone Forms: [facility] Medications and DC Order Prescriptions: New amoxicillin-pot clavulanate 875-125 mg Tablet 1 tab PO BIDM 4 Days Qty: 8 RF: 0 Continued venlafaxine [Effexor XR] 37.5 mg Capsule,Extended Release 24hr 37.5 mg PO BID RF: 0 meloxicam 7.5 mg Tablet 7.5 mg PO DAILY RF: 0 fentanyl 100 mcg/hr Patch 72 Hour 1 patch TRANSDERMAL Q OTHER DAY RF: 0 omeprazole 20 mg Capsule,Delayed Release(Dr/Ec) 20 mg PO BID RF: 0 aspirin [Aspirin Low Dose] 81 mg tablet,delayed release (DR/EC) 81 mg PO DAILY Qty: 30 RF: 9 pramipexole 0.125 mg Tablet PO HS RF: 0 gabapentin 400 mg Capsule 800 mg PO TID RF: 0 Discontinued amlodipine 5 mg Tablet 5 mg PO DAILY RF: 0 Discharge Orders: Discharge Order (Routine); Ordered 01/26/19 Ordered By: Arnold Blancas/Other Patient Handouts: GERD Lifestyle Changes Admission Data Admit Date/Time: 01/23/19 18:45 Attending Provider: Arnold Oliveros Admit Provider: Georgia Brown Primary Care Provider: PCP,NO Other Providers: Georgia Brown ; Nir Obrien Other Interventions: Discharge Summary Assessment (RN) Last Done: 01/26/19 14:32 DC Date/Time DO NOT enter until pt leaves facility: 01/26/19 16:03
[2019-01-26] MEDS: POLYETHYLENE (MIRALAX) 17 GM PACK PO PRN (15:22)
== END 2019-01-26 16:03 | disposition home or self-care (01) | DRG 871 ==
LOC: ED 13:24 → SUATTDRO 18:45 → 2S 18:45 → 2W 01-24 15:37

== ENCOUNTER 2019-08-02 14:38 | Inpatient (IN) ==
[2019-08-02] MEDS ORDERED: SODIUM CHLORIDE 0.9% 1000ML 1,000 ML IV ONE (15:07)
[2019-08-02 15:27] LABS: Hematocrit (blood only) 34.7 % (42-52); Hemoglobin 11.3 g/dL (14.0-18.0); Mean Corpuscular Hemoglobin 31.5 pg (25-34); Mean Corpuscular Hgb Conc 32.6 g/dL (32-36); Mean Corpuscular Volume 96.7 fL (80-100); Mean Platelet Volume 9.5 fL (7.4-10.4); Nucleated RBC # (auto) 0.03 K/uL (0-0); Nucleated RBC % (auto) 0.2 %; Platelet Count 223 K/uL (130-400); RDW Coefficient of Variation 14.5 % (11.5-14.5); Red Blood Count 3.59 M/uL (4.7-6.1); White Blood Count 14.65 K/uL (4.8-10.8)
[2019-08-02] MEDS ORDERED: ACETAMINOPHEN 1,000 MG/100 ML VIAL IV STA (15:31)
--- NOTE | 2019-08-02 15:31 | Emergency Department Note ---
History of Present Illness General Chief complaint: Shortness of Breath/Dyspnea Stated complaint: REACTION TO MEDICATION Time Seen by Provider: 08/02/19 15:06 History of Present Illness Provider complaint: Shortness of breath altered mental status Onset (ago): hour(s) 10 Maximum Pain Intensity: 5 68-year-old male presents emergency department for shortness of breath and altered mental status. Per the at bedside, she woke up at around 5 AM and saw the patient was not wearing his oxygen when he is supposed to. She states he woke up and was acting bizarre similar to when he had previous episodes of low oxygen. She placed the oxygen back on him and then went back to bed. In the morning she went out to run errands and then came back and she still stated he was acting very similar to when he had low oxygen levels in the past. So she brought him to the emergency department. She reports no fevers. The patient reports not feeling feverish. He does report mild cough. He also reports dysuria. No recent falls. He does not report any chest pain, headache, or neck pain. No hemoptysis. No hematuria, melena, or hematochezia. Home Medications Home Medications Medication Instructions Recorded Confirmed Type aspirin [Aspirin Low Dose] 81 mg PO DAILY #30 tab 09/11/18 08/02/19 Rx cyclobenzaprine 10 mg tablet 10 mg PO HS 02/28/19 08/02/19 History fentanyl 50 mcg/hr transdermal 1 patch TD Q OTHER DAY ea 02/28/19 08/02/19 History patch meloxicam 15 mg tablet 15 mg PO DAILY 02/28/19 08/02/19 History omeprazole 20 mg capsule,delayed 20 mg PO QAM cap 02/28/19 08/02/19 History release pramipexole 0.5 mg tablet 0.5 mg PO DAILY 02/28/19 08/02/19 History venlafaxine 75 mg capsule,extended 75 mg PO BID cap 02/28/19 08/02/19 History release 24 hr hydrocodone 10 mg-acetaminophen 1 tab PO QID PRN 03/13/19 08/02/19 History 325 mg tablet loratadine 10 mg tablet 10 mg PO DAILY 03/13/19 08/02/19 History benzonatate 100 mg capsule 100 mg PO BID PRN 04/10/19 08/02/19 History fluticasone propionate 50 2 spray INTNAS DAILY #15.8 gm 04/10/19 08/02/19 Rx mcg/actuation nasal spray,suspension ondansetron 4 mg disintegrating 4 mg PO Q8H PRN 04/10/19 08/02/19 History tablet cholecalciferol (vitamin D3) 25 1,000 units PO BID cap 06/10/19 08/02/19 History mcg (1,000 unit) capsule alfuzosin [Uroxatral] 10 mg PO DAILY 08/02/19 08/02/19 History dicyclomine 10 mg PO BID PRN 08/02/19 08/02/19 History gabapentin 200 mg PO BID 08/02/19 08/02/19 History lisinopril 5 mg PO DAILY 08/02/19 08/02/19 History Allergies Allergy/AdvReac Type Severity Reaction Status Date / Time bee venom protein (honey bee) Allergy Intermediate EXCESSIVE Verified 08/02/19 16:06 SWELLING AT SITE sulfamethoxazole Allergy Intermediate TONGUE Verified 08/02/19 16:06 SWELLS, WHITE BLISTERS IN MOUTH. trimethoprim Allergy Intermediate TONGUE Verified 08/02/19 16:06 SWELLS, WHITE BLISTERS IN MOUTH. adhesive Allergy Mild SKIN Verified 08/02/19 16:06 IRRITATION morphine AdvReac Intermediate PROJECTILE Verified 08/02/19 16:06 VOMITING Past Med/Surg History Medical History Altered mental state (Acute) Chronic back pain Depression Elevated brain natriuretic peptide (BNP) level (Acute) Facial laceration (Resolved) Fever (Acute) GERD (gastroesophageal reflux disease) Headache (Acute) Hypercapnia (Acute) Hypertension Hypoxia (Acute) Hypoxia (Acute) Leukocytosis (Acute) Leukocytosis Lymphadenopathy Metabolic encephalopathy Non-ST elevation NE (NSTEMI) (Acute) Pleural effusion, right Pneumonia (Acute) Right upper quadrant abdominal pain (Acute) Sepsis Surgical History History of ankle surgery Britton reconstruction-right side History of carpal tunnel release History of surgery mass removed from left side of clavicle Status post trigger finger release Family History Mother Cancer Son Environmental allergies Asthma Other Gallbladder disease Hypertension No family history of bleeding disorder Social History Preferred Language: Macedonian Communication Ability: Effective Tar Leveler Required: No Beliefs That Will Affect Care: None marital status: Current Living Situation: Spouse current occupational status: retired Feels Safe at Home: Yes Smoking Status: Former smoker Tobacco Type: cigarettes ; Second Hand Exposure: No ; Hx Alcohol Use: No Hx Substance Use: No Review of Systems A total of 10 systems reviewed and were otherwise negative Physical Exam Vital Signs Vital Signs - 24 hr 08/02/19 14:47 08/02/19 14:58 08/02/19 15:03 Temperature 39.3 C H Temperature Source Oral Pulse Rate 116 H Pulse Rate from SpO2 Sensor Respiratory Rate 22 Respiratory Effort / Characteristics Spontaneous Short of Breath Respiratory Depth Normal Respiratory Pattern Regular Blood Pressure 127/79 Blood Pressure Mean 95 Pulse Oximetry 91 93 Oxygen Delivery Method Nasal Cannula Nasal Cannula Nasal Cannula Oxygen Flow Rate 3 3 Fraction of Inspired Oxygen Sepsis Recent Fever Within 48 Hours Yes Sepsis Action Taken by Nursing No Action Required End-Tidal CO2 3 Oxygen Flow Rate - Titration Pulse Oximetry Post Tiitration 08/02/19 15:07 08/02/19 15:13 08/02/19 15:14 Temperature Temperature Source Pulse Rate 117 H 114 H Pulse Rate from SpO2 Sensor 117 H 114 H Respiratory Rate 13 23 Respiratory Effort / Characteristics Respiratory Depth Respiratory Pattern Blood Pressure 114/79 Blood Pressure Mean 83 Pulse Oximetry 93 92 92 Oxygen Delivery Method Nasal Cannula Nasal Cannula Nasal Cannula Oxygen Flow Rate 3 3 3 Fraction of Inspired Oxygen Sepsis Recent Fever Within 48 Hours Sepsis Action Taken by Nursing End-Tidal CO2 Oxygen Flow Rate - Titration Pulse Oximetry Post Tiitration 08/02/19 15:15 08/02/19 15:43 08/02/19 15:59 Temperature Temperature Source Pulse Rate 113 H 108 H Pulse Rate from SpO2 Sensor 113 H Respiratory Rate 18 16 Respiratory Effort / Characteristics Respiratory Depth Respiratory Pattern Blood Pressure 114/77 100/67 Blood Pressure Mean 91 78 Pulse Oximetry 91 3 L 91 Oxygen Delivery Method Nasal Cannula Nasal Cannula Nasal Cannula Oxygen Flow Rate 3 3 4 Fraction of Inspired Oxygen 89 Sepsis Recent Fever Within 48 Hours Sepsis Action Taken by Nursing End-Tidal CO2 Oxygen Flow Rate - Titration 4 Pulse Oximetry Post Tiitration 93 Physical Exam GENERAL: He is oriented to person, place, and time. He appears well-developed and well-nourished. He does not appear distressed. HENT: Exam performed. - Head: Normocephalic and atraumatic. - Right Ear: External ear normal. No mastoid tenderness. - Left Ear: External ear normal. No mastoid tenderness. - Mouth/Throat: The oropharynx is clear and moist. No trismus in the jaw. No dental abscesses or uvula swelling. No oropharyngeal exudate or tonsillar abscesses. EYES: Conjunctivae and EOM are normal. Pupils are equal, round, and reactive to light. Right eye exhibits no discharge. Left eye exhibits no discharge. No scleral icterus. NECK: Normal range of motion. Neck supple. No JVD present. No spinous process tenderness present. No carotid bruit present. No rigidity. No tracheal deviation and normal range of motion present. No Brudzinski's sign and no Kernig's sign noted. CV: Tachycardic rate, regular rhythm, normal heart sounds and intact distal pulses. There is no peripheral edema. Palpable radial pulses bue. PULM/CHEST: Rhonchi bilaterally - Chest Wall: He exhibits no tenderness. ABD: The abdomen is soft. Bowel sounds are normal. He has no distension. No mass is present. No pain on palpation. There is no rebound, no guarding, no 's sign and no tenderness at McBurney's point. Rovsig negative. : Uncircumcised. MUSC/SKEL: Normal range of motion. There is no peripheral edema, tenderness or deformity. LYMPH: No cervical adenopathy. NEURO: He is alert and oriented to person, place, and time. He has normal strength. No cranial nerve deficit or sensory deficit. Coordination and gait normal. GCS eye subscore is 4. GCS verbal subscore is 5. GCS motor subscore is 6. Cerebellar tests wnl. SKIN: Skin is warm and dry. He is not diaphoretic. Fentanyl patch on his upper extremity. PSYCH: He has a normal mood and affect. Behavior is normal. Judgment and thought content normal. Course Course 1515: The patient was evaluated in room C5. A complete history and physical exam was performed. Patient was found to be febrile in the emergency department. He was placed in airborne precautions and seen with full PPE on. Sepsis protocol initiated. 1534: EMR reviewed. Patient has history of chronic respiratory failure and hypoxia and is supposed to wear oxygen, 4 L at all times. He has a history of coronary artery disease, hypertension, depression, GERD, chronic narcotic usage and obstructive sleep apnea. Patient also has a history of recurrent aspiration pneumonias. Follows with pulmonology Dr. 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 1558: Patient's respiratory currently 16 and oxygen saturation 91% on 4 L his baseline. Labs show leukocytosis of 14.65. ABG shows pH o f7.36, pCO2 of 57, pO2 60, pHCO3 32, O2 saturation on 88.2%. I did discuss the case with pulmonary/ICU Dr. Reis who states that the patient is chronically hypercapnic. He states to target that the patient should have an oxygen saturation between 88 to 92%. Given he is not tachypneic and his oxygen saturation is within the goals set by Dr. Reis, both he and I feel that the patient does not need the intensive care at this time. The patient's chest x- ray is concerning for bilateral infiltrates that could be related to novel coronavirus. Rapid novel coronavirus testing was sent given the patient is going to be admitted to the hospitalist service. Patient's troponin is 0.229, his creatinine is 1.46, his troponin has been elevated in the past also. Patient does not report any chest pain at this time. We will trend the troponins at this time. Is thought that the patient is more suffering from an infectious source given his fever rather than a cardiovascular insult. 1605: Discussed with Dr. Levi boston any hospitalist who agrees to the admission. He also states that the patient is concerning for novel coronavirus and should remain on airborne precautions until the bio fire and rapid novel coronavirus PCR is back. He does recommend starting the patient on Zosyn empirically given his history of recurrent aspiration pneumonias. Administered Medications Piperacillin Sod/Tazobactam Sod (Zosyn) 4.5 gm in 120 mls @ 30 mls/hr IV NOW ONE Stop: 08/02/19 20:05 Last Infusion: 08/02/19 17:02 Dose: 0 mls/hr Documented by: [id number] Admin: 08/02/19 16:17 Dose: 200 mls/hr Documented by: [id number] Discontinued Medications Sodium Chloride (Nss 1000ml) 1,000 mls @ 999 mls/hr IV .[id number] ONE Stop: 08/02/19 16:07 Last Infusion: 08/02/19 16:28 Dose: 0 mls/hr Documented by: [id number] Admin: 08/02/19 15:27 Dose: 999 mls/hr Documented by: [id number] Acetaminophen (Ofirmev) 1,000 mg in 100 mls @ 400 mls/hr IV NOW STA Stop: 08/02/19 15:45 Last Infusion: 08/02/19 15:53 Dose: 0 mls/hr Documented by: [id number] Admin: 08/02/19 15:38 Dose: 400 mls/hr Documented by: [id number] Critical Care Time Critical Care Time: Yes Total Critical Care Time: 41 I have personally spent greater than 41 minutes of critical care time in the direct management of this patient. This includes bedside care, interpretation of diagnostic studies, and testing, discussion with consultants, patient, and family members, and other required patient management activities. This 41 minutes is in excess of all separately billable procedures. Medical Decision Making Laboratory Data Result diagrams: 08/02/19 15:10 08/02/19 15:10 Lab Results 08/02/19 08/02/19 08/02/19 Range/Units 15:10 15:10 15:10 WBC 14.65 H (4.8-10.8) K/uL RBC 3.59 L (4.7-6.1) M/uL Hgb 11.3 L (14.0-18.0) g/dL POC Hgb (14.0-18.0) g/dl Hct 34.7 L (42-52) % POC Hct (42-52) % MCV 96.7 (80-100) fL MCH 31.5 (25-34) pg MCHC 32.6 (32-36) g/dL RDW Std Deviation 51.0 H (36.4-46.3) fL RDW Coeff of Netta 14.5 (11.5-14.5) % Plt Count 223 (130-400) K/uL MPV 9.5 (7.4-10.4) fL Immature Gran % (Auto) 0.5 % Neut % (Auto) 89.2 % Lymph % (Auto) 3.7 % [place] % (Auto) 6.5 % Eos % (Auto) 0.0 % Baso % (Auto) 0.1 % Immature Gran # (Auto) 0.07 H (0.00-0.02) K/uL Neut # (Auto) 13.08 H (1.4-6.5) K/uL Lymph # (Auto) 0.54 L (1.2-3.4) K/uL [place] # (Auto) 0.95 H (0.11-0.59) K/uL Eos # (Auto) 0.00 (0-0.5) K/uL Baso # (Auto) 0.01 (0-0.2) K/uL Absolute Nucleated RBC 0.03 H (0-0) K/uL Nucleated RBC % (auto) 0.2 % PT 11.7 (9.0-12.0) Seconds INR 1.1 (0.9-1.1) APTT 22.2 (21.0-31.0) Seconds PTT Ratio 0.8 ABG pH (7.35-7.45) ABG pCO2 (35-46) mmHg ABG pO2 (80-95) mmHg ABG HCO3 (19-24) mmol/L ABG O2 Saturation (90-95) % ABG Base Excess (-9-1.8) mEq/L Moses Test (Pos) Barometric Pressure mm/Hg Oxygen Given POC Sodium (135-144) mmol/L Sodium 137 (136-145) mmol/L POC Potassium (3.3-5.0) mmol/L Potassium 4.8 (3.5-5.1) mmol/L POC Chloride (101-112) mmol/L Chloride 102 (98-107) mmol/L Carbon Dioxide 33 H (21-32) mmol/L POC Total CO2 (24-31) mEq/l Anion Gap 3.0 (3-11) POC Anion Gap (16-25) mmol/L POC BUN (7-18) mg/dl BUN 27 H (7-18) mg/dl Creatinine 1.46 H (0.6-1.4) mg/dl POC Creatinine (0.6-1.3) mg/dl Est Cr Clr Drug Dosing 56.8 ml/min Est GFR ( Amer) 56.9 Est GFR (Non-Af Amer) 49.1 BUN/Creatinine Ratio 18.6 (10-20) Glucose 144 H (70-99) mg/dl POC Glucose (other) (70-99) mg/dl POC Lactic Acid Miko (0.90-1.70) mmol/L Calcium 8.4 L (8.5-10.1) mg/dl POC Ioniz Calcium Arlene (1.12-1.32) mmol/l Magnesium 1.8 (1.8-2.4) mg/dl Total Bilirubin 1.0 (0.2-1) mg/dl AST 33 (15-37) U/L ALT 39 (12-78) U/L Alkaline Phosphatase 64 (45-117) U/L Troponin I 0.229 H* (0-0.045) ng/ml NT-Pro-B Natriuret Pep 6614 H (0-900) pg/ml Total Protein 7.1 (6.4-8.2) gm/dl Albumin 3.5 (3.4-5.0) gm/dl Globulin 3.6 (2.5-4.0) gm/dl Albumin/Globulin Ratio 1.0 (0.9-2) Procalcitonin (0-0.5) ng/ml Urine Color Urine Appearance (Clear) Urine pH (4.5-7.5) Ur Specific [place] (1.000-1.030) Urine Protein (Negative) Urine Glucose (UA) (Negative) Urine Ketones (Negative) Urine Blood (Negative) Urine Nitrite (Negative) Urine Bilirubin (Negative) Urine Urobilinogen (Negative) Ur Leukocyte Esterase (Negative) Urine WBC (Auto) (0-5) /hpf Urine RBC (Auto) (0-4) /hpf U Hyaline Cast (Auto) (0-5) /lpf U Epithel Cells (Auto) (0-5) /lpf Urine Bacteria (Auto) (Negative) Granular Casts (0) /lpf Urine Mucus (None Prsent) Adenovirus (PCR) (NotDetected) B. pertussis DNA (PCR) (NotDetected) B.parapertussis DNA PCR (NotDetected) C. pneumoniae DNA (PCR) (NotDetected) Coronavirus (PCR) Coronavirus OC43 (PCR) (NotDetected) Coronavirus HKU1 (PCR) (NotDetected) Coronavirus 229E (PCR) (NotDetected) COVID-19 Pt Symptomatic COVID-19 Source COVID-19 PCR Coronavirus NL63 (PCR) (NotDetected) Human Metapneumovir PCR (NotDetected) Influenza Type A (PCR) (NotDetected) Influenza Type B (PCR) (NotDetected) M. pneumoniae (PCR) (NotDetected) Parainfluenza 1 (PCR) (NotDetected) Parainfluenza 2 (PCR) (NotDetected) Parainfluenza 3 (PCR) (NotDetected) Parainfluenza 4 (PCR) (NotDetected) RSV (PCR) (NotDetected) Entero/Rhino (PCR) (NotDetected) SARS Virus RNA (PCR) SARS-CoV-2 RNA (RT-PCR) 08/02/19 08/02/19 08/02/19 Range/Units 15:10 15:12 15:12 WBC (4.8-10.8) K/uL RBC (4.7-6.1) M/uL Hgb (14.0-18.0) g/dL POC Hgb (14.0-18.0) g/dl Hct (42-52) % POC Hct (42-52) % MCV (80-100) fL MCH (25-34) pg MCHC (32-36) g/dL RDW Std Deviation (36.4-46.3) fL RDW Coeff of Netta (11.5-14.5) % Plt Count (130-400) K/uL MPV (7.4-10.4) fL Immature Gran % (Auto) % Neut % (Auto) % Lymph % (Auto) % [place] % (Auto) % Eos % (Auto) % Baso % (Auto) % Immature Gran # (Auto) (0.00-0.02) K/uL Neut # (Auto) (1.4-6.5) K/uL Lymph # (Auto) (1.2-3.4) K/uL [place] # (Auto) (0.11-0.59) K/uL Eos # (Auto) (0-0.5) K/uL Baso # (Auto) (0-0.2) K/uL Absolute Nucleated RBC (0-0) K/uL Nucleated RBC % (auto) % PT (9.0-12.0) Seconds INR (0.9-1.1) APTT (21.0-31.0) Seconds PTT Ratio ABG pH (7.35-7.45) ABG pCO2 (35-46) mmHg ABG pO2 (80-95) mmHg ABG HCO3 (19-24) mmol/L ABG O2 Saturation (90-95) % ABG Base Excess (-9-1.8) mEq/L Moses Test (Pos) Barometric Pressure mm/Hg Oxygen Given POC Sodium (135-144) mmol/L Sodium (136-145) mmol/L POC Potassium (3.3-5.0) mmol/L Potassium (3.5-5.1) mmol/L POC Chloride (101-112) mmol/L Chloride (98-107) mmol/L Carbon Dioxide (21-32) mmol/L POC Total CO2 (24-31) mEq/l Anion Gap (3-11) POC Anion Gap (16-25) mmol/L POC BUN (7-18) mg/dl BUN (7-18) mg/dl Creatinine (0.6-1.4) mg/dl POC Creatinine (0.6-1.3) mg/dl Est Cr Clr Drug Dosing ml/min Est GFR ( Amer) Est GFR (Non-Af Amer) BUN/Creatinine Ratio (10-20) Glucose (70-99) mg/dl POC Glucose (other) (70-99) mg/dl POC Lactic Acid Miko (0.90-1.70) mmol/L Calcium (8.5-10.1) mg/dl POC Ioniz Calcium Arlene (1.12-1.32) mmol/l Magnesium (1.8-2.4) mg/dl Total Bilirubin (0.2-1) mg/dl AST (15-37) U/L ALT (12-78) U/L Alkaline Phosphatase (45-117) U/L Troponin I (0-0.045) ng/ml NT-Pro-B Natriuret Pep (0-900) pg/ml Total Protein (6.4-8.2) gm/dl Albumin (3.4-5.0) gm/dl Globulin (2.5-4.0) gm/dl Albumin/Globulin Ratio (0.9-2) Procalcitonin 0.13 (0-0.5) ng/ml Urine Color Urine Appearance (Clear) Urine pH (4.5-7.5) Ur Specific [place] (1.000-1.030) Urine Protein (Negative) Urine Glucose (UA) (Negative) Urine Ketones (Negative) Urine Blood (Negative) Urine Nitrite (Negative) Urine Bilirubin (Negative) Urine Urobilinogen (Negative) Ur Leukocyte Esterase (Negative) Urine WBC (Auto) (0-5) /hpf Urine RBC (Auto) (0-4) /hpf U Hyaline Cast (Auto) (0-5) /lpf U Epithel Cells (Auto) (0-5) /lpf Urine Bacteria (Auto) (Negative) Granular Casts (0) /lpf Urine Mucus (None Prsent) Adenovirus (PCR) Not Detected (NotDetected) B. pertussis DNA (PCR) Not Detected (NotDetected) B.parapertussis DNA PCR Not Detected (NotDetected) C. pneumoniae DNA (PCR) Not Detected (NotDetected) Coronavirus (PCR) Cancelled Coronavirus OC43 (PCR) Not Detected (NotDetected) Coronavirus HKU1 (PCR) Not Detected (NotDetected) Coronavirus 229E (PCR) Not Detected (NotDetected) COVID-19 Pt Symptomatic Cancelled COVID-19 Source Cancelled COVID-19 PCR Coronavirus NL63 (PCR) Not Detected (NotDetected) Human Metapneumovir PCR Not Detected (NotDetected) Influenza Type A (PCR) Not Detected (NotDetected) Influenza Type B (PCR) Not Detected (NotDetected) M. pneumoniae (PCR) Not Detected (NotDetected) Parainfluenza 1 (PCR) Not Detected (NotDetected) Parainfluenza 2 (PCR) Not Detected (NotDetected) Parainfluenza 3 (PCR) Not Detected (NotDetected) Parainfluenza 4 (PCR) Not Detected (NotDetected) RSV (PCR) Not Detected (NotDetected) Entero/Rhino (PCR) Not Detected (NotDetected) SARS Virus RNA (PCR) Cancelled SARS-CoV-2 RNA (RT-PCR) Cancelled 08/02/19 08/02/19 08/02/19 Range/Units 15:12 15:12 15:16 WBC (4.8-10.8) K/uL RBC (4.7-6.1) M/uL Hgb (14.0-18.0) g/dL POC Hgb (14.0-18.0) g/dl Hct (42-52) % POC Hct (42-52) % MCV (80-100) fL MCH (25-34) pg MCHC (32-36) g/dL RDW Std Deviation (36.4-46.3) fL RDW Coeff of Netta (11.5-14.5) % Plt Count (130-400) K/uL MPV (7.4-10.4) fL Immature Gran % (Auto) % Neut % (Auto) % Lymph % (Auto) % [place] % (Auto) % Eos % (Auto) % Baso % (Auto) % Immature Gran # (Auto) (0.00-0.02) K/uL Neut # (Auto) (1.4-6.5) K/uL Lymph # (Auto) (1.2-3.4) K/uL [place] # (Auto) (0.11-0.59) K/uL Eos # (Auto) (0-0.5) K/uL Baso # (Auto) (0-0.2) K/uL Absolute Nucleated RBC (0-0) K/uL Nucleated RBC % (auto) % PT (9.0-12.0) Seconds INR (0.9-1.1) APTT (21.0-31.0) Seconds PTT Ratio ABG pH (7.35-7.45) ABG pCO2 (35-46) mmHg ABG pO2 (80-95) mmHg ABG HCO3 (19-24) mmol/L ABG O2 Saturation (90-95) % ABG Base Excess (-9-1.8) mEq/L Moses Test (Pos) Barometric Pressure mm/Hg Oxygen Given POC Sodium (135-144) mmol/L Sodium (136-145) mmol/L POC Potassium (3.3-5.0) mmol/L Potassium (3.5-5.1) mmol/L POC Chloride (101-112) mmol/L Chloride (98-107) mmol/L Carbon Dioxide (21-32) mmol/L POC Total CO2 (24-31) mEq/l Anion Gap (3-11) POC Anion Gap (16-25) mmol/L POC BUN (7-18) mg/dl BUN (7-18) mg/dl Creatinine (0.6-1.4) mg/dl POC Creatinine (0.6-1.3) mg/dl Est Cr Clr Drug Dosing ml/min Est GFR ( Amer) Est GFR (Non-Af Amer) BUN/Creatinine Ratio (10-20) Glucose (70-99) mg/dl POC Glucose (other) (70-99) mg/dl POC Lactic Acid Miko 1.25 (0.90-1.70) mmol/L Calcium (8.5-10.1) mg/dl POC Ioniz Calcium Arlene (1.12-1.32) mmol/l Magnesium (1.8-2.4) mg/dl Total Bilirubin (0.2-1) mg/dl AST (15-37) U/L ALT (12-78) U/L Alkaline Phosphatase (45-117) U/L Troponin I (0-0.045) ng/ml NT-Pro-B Natriuret Pep (0-900) pg/ml Total Protein (6.4-8.2) gm/dl Albumin (3.4-5.0) gm/dl Globulin (2.5-4.0) gm/dl Albumin/Globulin Ratio (0.9-2) Procalcitonin (0-0.5) ng/ml Urine Color Urine Appearance (Clear) Urine pH (4.5-7.5) Ur Specific [place] (1.000-1.030) Urine Protein (Negative) Urine Glucose (UA) (Negative) Urine Ketones (Negative) Urine Blood (Negative) Urine Nitrite (Negative) Urine Bilirubin (Negative) Urine Urobilinogen (Negative) Ur Leukocyte Esterase (Negative) Urine WBC (Auto) (0-5) /hpf Urine RBC (Auto) (0-4) /hpf U Hyaline Cast (Auto) (0-5) /lpf U Epithel Cells (Auto) (0-5) /lpf Urine Bacteria (Auto) (Negative) Granular Casts (0) /lpf Urine Mucus (None Prsent) Adenovirus (PCR) (NotDetected) B. pertussis DNA (PCR) (NotDetected) B.parapertussis DNA PCR (NotDetected) C. pneumoniae DNA (PCR) (NotDetected) Coronavirus (PCR) Coronavirus OC43 (PCR) (NotDetected) Coronavirus HKU1 (PCR) (NotDetected) Coronavirus 229E (PCR) (NotDetected) COVID-19 Pt Symptomatic COVID-19 Source COVID-19 PCR NEGATIVE Coronavirus NL63 (PCR) (NotDetected) Human Metapneumovir PCR (NotDetected) Influenza Type A (PCR) Neg for Influ A (NotDetected) Influenza Type B (PCR) Neg for Influ B (NotDetected) M. pneumoniae (PCR) (NotDetected) Parainfluenza 1 (PCR) (NotDetected) Parainfluenza 2 (PCR) (NotDetected) Parainfluenza 3 (PCR) (NotDetected) Parainfluenza 4 (PCR) (NotDetected) RSV (PCR) (NotDetected) Entero/Rhino (PCR) (NotDetected) SARS Virus RNA (PCR) SARS-CoV-2 RNA (RT-PCR) 08/02/19 08/02/19 08/02/19 Range/Units 15:20 15:26 15:36 WBC (4.8-10.8) K/uL RBC (4.7-6.1) M/uL Hgb (14.0-18.0) g/dL POC Hgb 11.6 L (14.0-18.0) g/dl Hct (42-52) % POC Hct 34 L (42-52) % MCV (80-100) fL MCH (25-34) pg MCHC (32-36) g/dL RDW Std Deviation (36.4-46.3) fL RDW Coeff of Netta (11.5-14.5) % Plt Count (130-400) K/uL MPV (7.4-10.4) fL Immature Gran % (Auto) % Neut % (Auto) % Lymph % (Auto) % [place] % (Auto) % Eos % (Auto) % Baso % (Auto) % Immature Gran # (Auto) (0.00-0.02) K/uL Neut # (Auto) (1.4-6.5) K/uL Lymph # (Auto) (1.2-3.4) K/uL [place] # (Auto) (0.11-0.59) K/uL Eos # (Auto) (0-0.5) K/uL Baso # (Auto) (0-0.2) K/uL Absolute Nucleated RBC (0-0) K/uL Nucleated RBC % (auto) % PT (9.0-12.0) Seconds INR (0.9-1.1) APTT (21.0-31.0) Seconds PTT Ratio ABG pH 7.36 (7.35-7.45) ABG pCO2 57 H (35-46) mmHg ABG pO2 60 L (80-95) mmHg ABG HCO3 32 H (19-24) mmol/L ABG O2 Saturation 88.2 L (90-95) % ABG Base Excess 5.1 H (-9-1.8) mEq/L Moses Test POSITIVE (Pos) Barometric Pressure 730.4 mm/Hg Oxygen Given O2 FLOW RATE 3 POC Sodium 138 (135-144) mmol/L Sodium (136-145) mmol/L POC Potassium 4.8 (3.3-5.0) mmol/L Potassium (3.5-5.1) mmol/L POC Chloride 97 L (101-112) mmol/L Chloride (98-107) mmol/L Carbon Dioxide (21-32) mmol/L POC Total CO2 31 (24-31) mEq/l Anion Gap (3-11) POC Anion Gap 15.0 L (16-25) mmol/L POC BUN 27 H (7-18) mg/dl BUN (7-18) mg/dl Creatinine (0.6-1.4) mg/dl POC Creatinine 1.4 H (0.6-1.3) mg/dl Est Cr Clr Drug Dosing ml/min Est GFR ( Amer) Est GFR (Non-Af Amer) BUN/Creatinine Ratio (10-20) Glucose (70-99) mg/dl POC Glucose (other) 147 H (70-99) mg/dl POC Lactic Acid Miko (0.90-1.70) mmol/L Calcium (8.5-10.1) mg/dl POC Ioniz Calcium Arlene 1.13 (1.12-1.32) mmol/l Magnesium (1.8-2.4) mg/dl Total Bilirubin (0.2-1) mg/dl AST (15-37) U/L ALT (12-78) U/L Alkaline Phosphatase (45-117) U/L Troponin I (0-0.045) ng/ml NT-Pro-B Natriuret Pep (0-900) pg/ml Total Protein (6.4-8.2) gm/dl Albumin (3.4-5.0) gm/dl Globulin (2.5-4.0) gm/dl Albumin/Globulin Ratio (0.9-2) Procalcitonin (0-0.5) ng/ml Urine Color Dark Yellow Urine Appearance Cloudy A (Clear) Urine pH 5.0 (4.5-7.5) Ur Specific [place] 1.026 (1.000-1.030) Urine Protein 1+ H (Negative) Urine Glucose (UA) Negative (Negative) Urine Ketones Negative (Negative) Urine Blood Negative (Negative) Urine Nitrite Negative (Negative) Urine Bilirubin Negative (Negative) Urine Urobilinogen Negative (Negative) Ur Leukocyte Esterase Trace H (Negative) Urine WBC (Auto) 1-5 (0-5) /hpf Urine RBC (Auto) 0-4 (0-4) /hpf U Hyaline Cast (Auto) >30 H (0-5) /lpf U Epithel Cells (Auto) 10-20 H (0-5) /lpf Urine Bacteria (Auto) Negative (Negative) Granular Casts 1-5 H (0) /lpf Urine Mucus Present A (None Prsent) Adenovirus (PCR) (NotDetected) B. pertussis DNA (PCR) (NotDetected) B.parapertussis DNA PCR (NotDetected) C. pneumoniae DNA (PCR) (NotDetected) Coronavirus (PCR) Coronavirus OC43 (PCR) (NotDetected) Coronavirus HKU1 (PCR) (NotDetected) Coronavirus 229E (PCR) (NotDetected) COVID-19 Pt Symptomatic COVID-19 Source COVID-19 PCR Coronavirus NL63 (PCR) (NotDetected) Human Metapneumovir PCR (NotDetected) Influenza Type A (PCR) (NotDetected) Influenza Type B (PCR) (NotDetected) M. pneumoniae (PCR) (NotDetected) Parainfluenza 1 (PCR) (NotDetected) Parainfluenza 2 (PCR) (NotDetected) Parainfluenza 3 (PCR) (NotDetected) Parainfluenza 4 (PCR) (NotDetected) RSV (PCR) (NotDetected) Entero/Rhino (PCR) (NotDetected) SARS Virus RNA (PCR) SARS-CoV-2 RNA (RT-PCR) Imaging Data Radiologist's Impression: XR chest 1V portable HISTORY: 68 years-old Male SEPSIS acute sepsis COMPARISON: Chest radiographs 01/26/2019 TECHNIQUE: Portable AP view of the chest FINDINGS: Cardiac silhouette is enlarged, unchanged. Chronic right hemidiaphragmatic elevation. Pulmonary vascular congestion with bilateral interstitial coarsening. Left lung base and right lung patchy consolidative opacities are noted as well. No pneumothorax or large pleural effusion. Blunting of the costophrenic angles suggests trace effusions. Degenerative changes of the shoulders and spine. IMPRESSION: 1. Cardiomegaly with suggestion of pulmonary edema and trace pleural effusions. 2. Left lung base and right lung patchy consolidation may reflect alveolar pulmonary edema, atelectasis or superimposed pneumonitis. 3. Chronic right hemidiaphragmatic elevation. ACT 112: Negative or not required by law. The above report was generated using voice recognition software. It may contain grammatical, syntax or spelling errors. Electronically signed by: Henrique Stewart M.D. 08/02/2019 3:59 PM Dictated: 08/02/19 1557 Transcribed: 08/02/19 155 ECG Data Additional Comments: Sinus rhythm with rate of 114. NE QRS and QTc intervals within normal limits. There is T wave inversion in lead III, V3, V4, V5. There is baseline artifact due to patient's movement. No ST elevation or ST depressions. [facility] Narrative 1515: The patient was evaluated in room C5. A complete history and physical exam was performed. Patient was found to be febrile in the emergency department. He was placed in airborne precautions and seen with full PPE on. Sepsis pr otocol initiated. 1534: EMR reviewed. Patient has history of chronic respiratory failure and hypoxia and is supposed to wear oxygen, 4 L at all times. He has a history of coronary artery disease, hypertension, depression, GERD, chronic narcotic usage and obstructive sleep apnea. Patient also has a history of recurrent aspiration pneumonias. Follows with pulmonology Dr. 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 1558: Patient's respiratory currently 16 and oxygen saturation 91% on 4 L his baseline. Labs show leukocytosis of 14.65. ABG shows pH o f7.36, pCO2 of 57, pO2 60, pHCO3 32, O2 saturation on 88.2%. I did discuss the case with pulmonary/ICU Dr. Reis who states that the patient is chronically hypercapnic. He states to target that the patient should have an oxygen saturation between 88 to 92%. Given he is not tachypneic and his oxygen saturation is within the goals set by Dr. Reis, both he and I feel that the patient does not need the intensive care at this time. The patient's chest x- ray is concerning for bilateral infiltrates that could be related to novel coronavirus. Rapid novel coronavirus testing was sent given the patient is going to be admitted to the hospitalist service. Patient's troponin is 0.229, his creatinine is 1.46, his troponin has been elevated in the past also. Patient does not report any chest pain at this time. We will trend the troponins at this time. Is thought that the patient is more suffering from an infectious source given his fever rather than a cardiovascular insult. 1605: Discussed with Dr. Levi boston any hospitalist who agrees to the admission. He also states that the patient is concerning for novel coronavirus and should remain on airborne precautions until the bio fire and rapid novel coronavirus PCR is back. He does recommend starting the patient on Zosyn empirically given his history of recurrent aspiration pneumonias. Impression & Plan Sepsis, Pneumonia, Suspected COVID-19 virus infection, Elevated troponin Discharge Plan Visit Data Chief Complaint: Shortness of Breath/Dyspnea Stated Complaint: REACTION TO MEDICATION ED Provider: James Huitron Discharge Problem: Sepsis, Pneumonia, Suspected COVID-19 virus infection, Elevated troponin Patient Disposition: Being Evaluated by Hospitalist Forms Stand Alone Forms: My [facility] Prescriptions Prescriptions: No Action fentanyl 50 mcg/hr patch 72 hour 1 patch TD Q OTHER DAY RF: 0 pramipexole 0.5 mg tablet 0.5 mg PO DAILY RF: 0 cyclobenzaprine 10 mg tablet 10 mg PO HS RF: 0 meloxicam 15 mg tablet 15 mg PO DAILY RF: 0 venlafaxine 75 mg capsule,extended release 24hr 75 mg PO BID RF: 0 loratadine [Claritin] 10 mg tablet 10 mg PO DAILY RF: 0 hydrocodone-acetaminophen 10-325 mg tablet 1 tab PO QID PRN (Reason: Pain) RF: 0 benzonatate 100 mg capsule 100 mg PO BID PRN (Reason: Cough) RF: 0 ondansetron 4 mg tablet,disintegrating 4 mg PO Q8H PRN (Reason: Nausea And Vomiting) RF: 0 fluticasone propionate 50 mcg/actuation spray,suspension 2 spray INTNAS DAILY Qty: 15.8 RF: 2 cholecalciferol (vitamin D3) 25 mcg (1,000 unit) capsule 1,000 units PO BID RF: 0 omeprazole 20 mg capsule,delayed release(DR/EC) 20 mg PO QAM RF: 0 aspirin [Aspirin Low Dose] 81 mg tablet,delayed release (DR/EC) 81 mg PO DAILY Qty: 30 RF: 9 gabapentin 100 mg Capsule 200 mg PO BID RF: 0 lisinopril 5 mg tablet 5 mg PO DAILY RF: 0 alfuzosin [Uroxatral] 10 mg tablet extended release 24 hr 10 mg PO DAILY RF: 0 dicyclomine 10 mg Capsule 10 mg PO BID PRN (Reason: ABD CRAMPING) RF: 0 Referrals Referrals: PCP,NO [Primary Care Provider] - Discharge Problem: Sepsis Qualifiers: Sepsis type: sepsis due to unspecified organism Sepsis acute organ dysfunction status: unspecified Qualified Code(s): A41.9 - Sepsis, unspecified organism Pneumonia Qualifiers: Pneumonia type: due to unspecified organism Laterality: unspecified laterality Lung location: unspecified part of lung Qualified Code(s): J18.9 - Pneumonia, unspecified organism
[2019-08-02 15:33] LABS: iSTAT Creatinine 1.4 mg/dl (0.6-1.3); iSTAT Hemoglobin 11.6 g/dl (14.0-18.0); iSTAT Ionized Calcium 1.13 mmol/l (1.12-1.32); iSTAT Potassium 4.8 mmol/L (3.3-5.0)
[2019-08-02 15:40] LABS: INR 1.1 (0.9-1.1); Partial Thromboplastin Ratio 0.8; Partial Thromboplastin Time 22.2 Seconds (21.0-31.0); Prothrombin Time 11.7 Seconds (9.0-12.0)
[2019-08-02 15:42] LABS: Appearance Urine Cloudy (Clear); Bacteria Urine Automated Negative (Negative); Bilirubin Urine Negative (Negative); Blood Urine Negative (Negative); Color Urine Dark Yellow; Glucose Urine UA Negative (Negative); Ketones Urine Negative (Negative); Leukocyte Esterase Urine Trace (Negative); Nitrite Urine Negative (Negative); Protein Urine 1+ (Negative); RBC Urine Automated 0-4 /hpf (0-4); Specific Gravity Urine 1.026 (1.000-1.030); Urobilinogen Urine Negative (Negative)
[2019-08-02 15:44] LABS: Base Excess ABG 5.1 mEq/L (-9-1.8); HCO3 ABG 32 mmol/L (19-24); Oxygen Saturation ABG 88.2 % (90-95); PCO2 ABG 57 mmHg (35-46); PO2 ABG 60 mmHg (80-95); pH ABG 7.36 (7.35-7.45)
[2019-08-02 15:45] LABS: Allen Test POSITIVE (Pos)
[2019-08-02 15:45] LABS: Albumin Level 3.5 gm/dl (3.4-5.0); BUN Creatinine Ratio 18.6 (10-20); Calcium 8.4 mg/dl (8.5-10.1); Creatinine Clr Calc Pharmacy 56.8 ml/min; Est GFR (African American) 56.9; Est GFR (Non-African American) 49.1; Magnesium 1.8 mg/dl (1.8-2.4); Potassium 4.8 mmol/L (3.5-5.1)
[2019-08-02 15:46] LABS: Basophils # (auto) 0.01 K/uL (0-0.2); Basophils % (auto) 0.1 %; Immature Granulocytes # (auto) 0.07 K/uL (0.00-0.02); Immature Granulocytes % (auto) 0.5 %; Lymphocytes # (auto) 0.54 K/uL (1.2-3.4); Lymphocytes % (auto) 3.7 %; Monocytes # (auto) 0.95 K/uL (0.11-0.59); Monocytes % (auto) 6.5 %; Neutrophils # (auto) 13.08 K/uL (1.4-6.5); Neutrophils % (auto) 89.2 %
[2019-08-02 15:51] LABS: Globulin 3.6 gm/dl (2.5-4.0); Total Protein 7.1 gm/dl (6.4-8.2); Troponin I 0.229 ng/ml (0-0.045)
--- NOTE | 2019-08-02 16:00 | XRay Report ---
XR chest 1V portable HISTORY: 68 years-old Male SEPSIS acute sepsis COMPARISON: Chest radiographs 01/26/2019 TECHNIQUE: Portable AP view of the chest FINDINGS: Cardiac silhouette is enlarged, unchanged. Chronic right hemidiaphragmatic elevation. Pulmonary vascu lar congestion with bilateral interstitial coarsening. Left lung base and right lung patchy consolida tive opacities are noted as well. No pneumothorax or large pleural effusion. Blunting of the costophr enic angles suggests trace effusions. Degenerative changes of the shoulders and spine. IMPRESSION: 1. Cardiomegaly with suggestion of pulmonary edema and trace pleural effusions. 2. Left lung base and right lung patchy consolidation may reflect alveolar pulmonary edema, atelectas is or superimposed pneumonitis. 3. Chronic right hemidiaphragmatic elevation. ACT 112: Negative or not required by law. The above report was generated using voice recognition software. It may contain grammatical, syntax o r spelling errors. Electronically signed by: Henrique Stewart M.D. 08/02/2019 3:59 PM
[2019-08-02 16:03] LABS: Influenza A virus by PCR Neg for Influ A (Neg); Influenza B virus by PCR Neg for Influ B (Neg)
[2019-08-02 16:04] LABS: Cast Urine Automated >30 /lpf (0-5); Mucus Urine Present (None Prsent)
[2019-08-02] MEDS ORDERED: PIPERACILL/TAZOBAC CONSULT ACTIVE PRN ×2 (16:06→18:22)
[2019-08-02] MEDS ORDERED: PIPERACILLIN/TAZOBACTAM 4.5 GM/120 ML BAG IV ONE (16:06)
[2019-08-02 16:18] LABS: Adenovirus PCR Not Detected (NotDetected); Bordetella parapertussis PCR Not Detected (NotDetected); Bordetella pertussis PCR Not Detected (NotDetected); Chlamydia pneumoniae PCR Not Detected (NotDetected); Coronavirus 229E PCR Not Detected (NotDetected); Coronavirus HKU1 PCR Not Detected (NotDetected); Coronavirus NL63 PCR Not Detected (NotDetected); Coronavirus OC43PCR Not Detected (NotDetected); Human Metapneumovirus PCR Not Detected (NotDetected); Influenza A PCR Not Detected (NotDetected); Influenza B PCR Not Detected (NotDetected); Mycoplasma pneumoniae PCR Not Detected (NotDetected); Parainfluenza Virus 1 PCR Not Detected (NotDetected); Parainfluenza Virus 2 PCR Not Detected (NotDetected); Parainfluenza Virus 3 PCR Not Detected (NotDetected); Parainfluenza Virus 4 PCR Not Detected (NotDetected); Respiratory Syncytial VirusPCR Not Detected (NotDetected); Rhinovirus/Enterovirus PCR Not Detected (NotDetected)
--- NOTE | 2019-08-02 16:46 | History & Physical Report ---
Date of Service August 02, 2019 Assessment & Plan (1) Acute on chronic respiratory failure with hypoxemia: Patient does have a history of chronic respiratory failure, now appears to be in acute hypoxic respiratory failure as well. He is more stable on 4 L nasal cannula with decreased tachypnea. We will continue to monitor, repeat ABG if patient has decline in respiratory function. (2) Pneumonia: For appearance of chest x-ray along with febrile illness and leukocytosis, suspect patient has acute pneumonia. P patient does have a history of recurrent aspiration pneumonia. We will treat for this with Zosyn. Check sputum and blood cultures. Follow lactic acid. Will ask speech to evaluate as well. Also of concern is COVID-19. Patient had a negative influenza and bio fire test. The COVID-19 PCR was sent by the emergency room and is pending. Patient should remain in airborne isolation until this can be definitively ruled out by PCR testing. (3) Elevated troponin: Likely secondary to cardiac strain rather than discrete non-STEMI. Will continue to trend enzymes. Continue medications as noted, including low-dose aspirin, lisinopril,. Check fasting lipids. (4) Hypertension: Patient with low normal blood pressure, hold lisinopril for now (5) Acute kidney failure: Patient with elevated BUN/creatinine, suspect he may be dehydrated from his acute febrile illness. Slow repletion of IV okay to start gentle IV hydration. Can take fluids ad osmani as well. (6) Aspiration into airway: As noted above, patient has a history of this. states that she does not think in her blood is food in any way and that he can tolerate a normal diet. We will keep him on this for now, will ask speech to evaluate for further recommendations. History of Present Illness Primary Care Provider: NO PCP This is a 68-year-old male with past medical history of chronic hypoxic respiratory failure on home oxygen, chronic aspiration, GERD that presents today with altered mental status and fever. Patient is improved and is decent story. He is accompanied by his who is able to fill in details. Patient is apparently doing well this week up until earlier this morning. The woke up and noted that he had knocked his oxygen over. At that time he seemed a little " weird" and that he seemed a little more week as well as argumentative. She thought this was because his oxygen was off but had since been replaced. She went to the store and came back and found that the patient had worsened considerably. He was much more weak and unable to hold anything. They were unable to dress him without the assistance of their son. The patient appeared to be somewhat tachypneic as well which prompted eventual presentation to the emergency room. Patient was febrile to 39.3 C here. The denied any fevers at home. Here he was started on 3 L oxygen but only had a sat to 90%. He is now on 4 L with improvement to 91%. The notes that the patient does seem to be a bit more clear now and is roughly at his baseline. Patient does describe loose sounding cough without any production. He denies any chest pain. He does have some jerking myoclonic-like movements of his lower extremities which are apparently chronic in this patient. He does not appear to be in any acute significant distress. Allergies Allergy/AdvReac Type Severity Reaction Status Date / Time bee venom protein (honey bee) Allergy Intermediate EXCESSIVE Verified 08/02/19 16:06 SWELLING AT SITE sulfamethoxazole Allergy Intermediate TONGUE Verified 08/02/19 16:06 SWELLS, WHITE BLISTERS IN MOUTH. trimethoprim Allergy Intermediate TONGUE Verified 08/02/19 16:06 SWELLS, WHITE BLISTERS IN MOUTH. adhesive Allergy Mild SKIN Verified 08/02/19 16:06 IRRITATION morphine AdvReac Intermediate PROJECTILE Verified 08/02/19 16:06 VOMITING Home Medications Home Medications Medication Instructions Recorded Confirmed Type aspirin [Aspirin Low Dose] 81 mg PO DAILY #30 tab 09/11/18 08/02/19 Rx cyclobenzaprine 10 mg tablet 10 mg PO HS 02/28/19 08/02/19 History fentanyl 50 mcg/hr transdermal 1 patch TD Q OTHER DAY ea 02/28/19 08/02/19 History patch meloxicam 15 mg tablet 15 mg PO DAILY 02/28/19 08/02/19 History omeprazole 20 mg capsule,delayed 20 mg PO QAM cap 02/28/19 08/02/19 History release pramipexole 0.5 mg tablet 0.5 mg PO DAILY 02/28/19 08/02/19 History venlafaxine 75 mg capsule,extended 75 mg PO BID cap 02/28/19 08/02/19 History release 24 hr hydrocodone 10 mg-acetaminophen 1 tab PO QID PRN 03/13/19 08/02/19 History 325 mg tablet loratadine 10 mg tablet 10 mg PO DAILY 03/13/19 08/02/19 History benzonatate 100 mg capsule 100 mg PO BID PRN 04/10/19 08/02/19 History fluticasone propionate 50 2 spray INTNAS DAILY #15.8 gm 04/10/19 08/02/19 Rx mcg/actuation nasal spray,suspension ondansetron 4 mg disintegrating 4 mg PO Q8H PRN 04/10/19 08/02/19 History tablet cholecalciferol (vitamin D3) 25 1,000 units PO BID cap 06/10/19 08/02/19 History mcg (1,000 unit) capsule alfuzosin [Uroxatral] 10 mg PO DAILY 08/02/19 08/02/19 History dicyclomine 10 mg PO BID PRN 08/02/19 08/02/19 History gabapentin 200 mg PO BID 08/02/19 08/02/19 History lisinopril 5 mg PO DAILY 08/02/19 08/02/19 History Past Med/Surg History Medical History Altered mental state (Acute) Chronic back pain Depression Elevated brain natriuretic peptide (BNP) level (Acute) Facial laceration (Resolved) Fever (Acute) GERD (gastroesophageal reflux disease) Headache (Acute) Hypercapnia (Acute) Hypertension Hypoxia (Acute) Hypoxia (Acute) Leukocytosis (Acute) Leukocytosis Lymphadenopathy Metabolic encephalopathy Non-ST elevation RI (NSTEMI) (Acute) Pleural effusion, right Pneumonia (Acute) Right upper quadrant abdominal pain (Acute) Sepsis Surgical History History of ankle surgery Britton reconstruction-right side History of carpal tunnel release History of surgery mass removed from left side of clavicle Status post trigger finger release Family History Mother Cancer Son Environmental allergies Asthma Other Gallbladder disease Hypertension No family history of bleeding disorder Social History Preferred Language: [place] Communication Ability: Effective Trolley Worker Required: No Beliefs That Will Affect Care: None marital status: Current Living Situation: Spouse current occupational status: retired Feels Safe at Home: Yes Smoking Status: Former smoker Tobacco Type: cigarettes ; Second Hand Exposure: No ; Hx Alcohol Use: No Hx Substance Use: No Review of Systems Constitutional: + fever and + weakness; no chills, no weight loss and no weight gain Eyes: as per Subjective / HPI Respiratory: + cough and + sputum production; no chest congestion, no dyspnea and no dyspnea on exertion Cardiovascular: + dyspnea; no chest pain, no orthopnea, no palpitations, no lightheadedness and no edema Gastrointestinal: no abdominal pain, no nausea, no vomiting, no constipation and no diarrhea/loose stools Musculoskeletal: no back pain, no neck pain, no joint pain, no stiffness and no myalgia Integumentary: no rash Neurologic: + lack of coordination and + seizure-like activity; no gait abnormality, no unsteadiness, no falls, no generalized weakness and no syncope Psychiatric: no visual hallucinations Physical Exam Constitutional: + morbidly obese, + disheveled and cooperative; no acute distress Neck: trachea midline, no thyromegaly Respiratory: normal respiratory effort Auscultation: + diminished lung sounds (Absent the right base. Fine rales at bases. No overt wheeze or rhonchi); no crackles, no rales, no rhonchi and no wheezes Cardiovascular: Rate/Rhythm: regular rate and regular rhythm Heart Sounds: normal S1, normal S2 and + murmur Gastrointestinal (Abdomen): Inspection/Auscultation: abdomen normal to inspection Percussion/Palpation: abdomen soft; abdomen nontender, no guarding, abdomen not rigid and no hepatosplenomegaly Skin: no rashes, warm and dry Neurologic: PERRL, EOMI, accommodation nl, no face palsy, no dysarthria Psychiatric: A+Ox3, euthymic affect Results & Data Results & Data ([facility]) Vital Signs (Past 12 Hours) Vital Signs Temp Pulse Resp BP Pulse Ox 08/02/19 15:59 108 H 16 100/67 91 08/02/19 15:43 3 L 08/02/19 15:15 113 H 18 114/77 91 08/02/19 15:14 114 H 23 114/79 92 08/02/19 15:13 117 H 13 92 08/02/19 15:07 93 08/02/19 15:03 93 08/02/19 14:47 39.3 C H 116 H 22 127/79 91 Laboratory Results WBCs of 14.6, hemoglobin 11.3 with hematocrit of 34.7. Platelet 223. INR is 1.1. ABG shows a pH of 7.36, PCO2 57, PO2 of 60, bicarb 32, O2 sat 88.2%. Sodium 138, potassium 4.8, chloride is 97, chloride 102, CO2 33, BUN of 27 with a creatinine 1.46. These are both elevated from baseline of 80/0.97 from previous lab work. Glucose is 147. Calcium is 8.4. Troponin 0 0.229. BNP is 6614. Urine is concentrated with 1+ protein trace leuk esterases, 10-20 epithelial cells, otherwise negative. Influenza A and B are negative. Biofire is negative. COVID-19 PCR is pending. Diagnostic Findings XR chest 1V portable HISTORY: 68 years-old Male SEPSIS acute sepsis COMPARISON: Chest radiographs 01/26/2019 TECHNIQUE: Portable AP view of the chest FINDINGS: Cardiac silhouette is enlarged, unchanged. Chronic right hemidiaphragmatic elevation. Pulmonary vascular congestion with bilateral interstitial coarsening. Left lung base and right lung patchy consolidative opacities are noted as well. No pneumothorax or large pleural effusion. Blunting of the costophrenic angles suggests trace effusions. Degenerative changes of the shoulders and spine. IMPRESSION: 1. Cardiomegaly with suggestion of pulmonary edema and trace pleural effusions. 2. Left lung base and right lung patchy consolidation may reflect alveolar pulmonary edema, atelectasis or superimposed pneumonitis. 3. Chronic right hemidiaphragmatic elevation. PG Care Time/CCT Total # of Minutes Spent Total Time Spent with Patient: Total time spent is greater than 50% in coordination of care (as documented) at patient's floor/unit and/or counseling patient: Coding Level of Care Code 89542 Initial Inpt Care Lvl 3 Diagnoses Acute on chronic respiratory failure with hypoxemia J96.21 Pneumonia J18.9 Elevated troponin R79.89 Hypertension I10 Hypertension type: essential hypertension Acute kidney failure N17.9 Aspiration into airway T17.908A (1) Hypertension Hypertension type: essential hypertension Qualified Code(s): I10 - Essential (primary) hypertension
[2019-08-02] MEDS ORDERED: DICYCLOMINE HCL 10 MG CAP PO PRN (18:22)
[2019-08-02] MEDS ORDERED: ACETAMINOPHEN 325 MG TAB PO PRN (18:22)
[2019-08-02] MEDS ORDERED: SODIUM CHLORIDE 0.9% 1000ML 1,000 ML IV SCH (18:22)
[2019-08-02] MEDS ORDERED: ONDANSETRON INJ 2 MG/ML 2 ML VIAL IV PRN (18:22)
[2019-08-02] MEDS ORDERED: BENZONATATE 100 MG CAPSULE PO PRN (18:22)
[2019-08-02] MEDS: SODIUM CHLORIDE 0.9% 1000ML 1,000 ML IV SCH (18:49)
[2019-08-02] MEDS: VENLAFAXINE HCL XR 75 MG CAPXR PO SCH (19:36)
[2019-08-02] MEDS: CYCLOBENZAPRINE HCL 10 MG TAB PO SCH (19:37)
[2019-08-02] MEDS: CHOLECALCIFEROL 1,000 UNITS 25 MCG TAB PO SCH (19:37)
[2019-08-02] MEDS: GABAPENTIN 100 MG CAP PO SCH (19:37)
[2019-08-02] MEDS: fentaNYL 50 MCG/HR TDSY TD SCH (20:09)
[2019-08-02] MEDS: PANTOprazole 40 MG TAB PO SCH (21:03)
[2019-08-02] MEDS: PIPERACILLIN/TAZOBACTAM 3.375 GM in DEXTROSE 5% 100 ML IV SCH (21:48)
[2019-08-02] MEDS: HEPARIN SOD 5,000 UNIT/0.5 ML VIAL SQ SCH (21:57)
[2019-08-03] MEDS: CHECK FENTANYL PATCH PLACEMENT SCH ×3 (00:29→15:40)
[2019-08-03] MEDS: PIPERACILLIN/TAZOBACTAM 3.375 GM in DEXTROSE 5% 100 ML IV SCH ×3 (04:44→22:24)
[2019-08-03] MEDS: HEPARIN SOD 5,000 UNIT/0.5 ML VIAL SQ SCH ×3 (05:25→22:19)
[2019-08-03 06:06] LABS: Hematocrit (blood only) 31.3 % (42-52); Hemoglobin 10.1 g/dL (14.0-18.0); Mean Corpuscular Hemoglobin 31.4 pg (25-34); Mean Corpuscular Hgb Conc 32.3 g/dL (32-36); Mean Corpuscular Volume 97.2 fL (80-100); Mean Platelet Volume 9.7 fL (7.4-10.4); Platelet Count 200 K/uL (130-400); RDW Coefficient of Variation 14.6 % (11.5-14.5); RDW Standard Deviation 52.2 fL (36.4-46.3); Red Blood Count 3.22 M/uL (4.7-6.1); White Blood Count 16.13 K/uL (4.8-10.8)
[2019-08-03 06:25] LABS: Basophils # (auto) 0.02 K/uL (0-0.2); Basophils % (auto) 0.1 %; Eosinophils # (auto) 0.16 K/uL (0-0.5); Immature Granulocytes # (auto) 0.05 K/uL (0.00-0.02); Immature Granulocytes % (auto) 0.3 %; Lymphocytes # (auto) 1.72 K/uL (1.2-3.4); Lymphocytes % (auto) 10.7 %; Monocytes # (auto) 0.98 K/uL (0.11-0.59); Monocytes % (auto) 6.1 %; Neutrophils % (auto) 81.8 %
[2019-08-03 06:30] LABS: BUN Creatinine Ratio 22.5 (10-20); Calcium 8.3 mg/dl (8.5-10.1); Creatinine Clr Calc Pharmacy 67.6 ml/min; Est GFR (Non-African American) 58.6; Magnesium 1.9 mg/dl (1.8-2.4)
[2019-08-03] MEDS: MELOXICAM 7.5 MG TAB PO SCH (08:30)
[2019-08-03] MEDS: LORATADINE 10 MG TAB PO SCH (08:31)
[2019-08-03] MEDS: PRAMIPEXOLE DIHYDROCHLO 0.5 MG TAB PO SCH (08:31)
[2019-08-03] MEDS: GABAPENTIN 100 MG CAP PO SCH ×2 (08:31→19:52)
[2019-08-03] MEDS: VENLAFAXINE HCL XR 75 MG CAPXR PO SCH ×2 (08:31→19:52)
[2019-08-03] MEDS: ALFUZOSIN HCL 10 MG TAB PO SCH (08:31)
[2019-08-03] MEDS: ASPIRIN 81 MG ECTAB PO SCH (08:31)
[2019-08-03] MEDS: CHOLECALCIFEROL 1,000 UNITS 25 MCG TAB PO SCH ×2 (08:32→19:52)
[2019-08-03] MEDS: HYDROCODONE/ACETAMINOPHEN 10/325 TAB PO PRN ×3 (08:38→23:43)
--- NOTE | 2019-08-03 10:00 | Electrocardiogram Report ---
Test Reason : Blood Pressure : / mmHG Vent. Rate : 114 BPM Atrial Rate : 114 BPM P-R Int : 154 ms QRS Dur : 090 ms QT Int : 322 ms P-R-T Axes : 042 000 -46 degrees QTc Int : 443 ms Poor data quality, interpretation may be adversely affected Sinus tachycardia Incomplete right bundle branch block Abnormal ECG When compared with ECG of 23-JAN-2019 13:55, T wave inversion now evident in Anterior leads Confirmed by Manoj Mack ([id number]) on 08/03/2019 10:00:02 AM Referred By: REFERRED SELF Confirmed By:Manoj Mack
--- NOTE | 2019-08-03 10:25 | Hospitalist Progress Note ---
Date of Service August 03, 2019 Assessment & Plan (1) Acute on chronic respiratory failure with hypoxemia: Patient does have a history of chronic respiratory failure, now appears to be in acute hypoxic respiratory failure as well. He seems to be closer to his baseline, on 3 L nasal cannula with sats in the low 90s which is appropriate. Will need PT/OT prior to discharge. (2) Pneumonia: I suspect patient has aspiration pneumonia, continue Zosyn for now. Over the next 24-48 hours the patient continues to improve, could conceivably place change roof bolter to oral Augmentin to finish course. I will continue oxygen as titrated. Of note, both biofire and COVID-19 PCR are negative and patient does not require any airborne isolation at this time. (3) Elevated troponin: Likely secondary to cardiac strain rather than discrete non-STEMI. Will continue to trend enzymes. Continue medications as noted, including low-dose aspirin, lisinopril,. Check fasting lipids. (4) Hypertension: Patient with low normal blood pressure, hold lisinopril for now (5) Acute kidney failure: BUN and creatinine still elevated although improved today with IV hydration. We will continue with 24 hours. His BUN is 28 with a creatinine of 1.26. Of note, sodium is low, will need to monitor. Patient continue ad osmani. fluids. (6) Aspiration into airway: Discussed with speech therapy, he is well-known to their service. They will perform repeat barium swallow in the morning. Continue diet per their recommendations. Admission and Anticipated Discharge Date Admission Date: August 02, 2019 Subjective Patient seen and examined. He appears to be much more alert than on presentation. He is now comfortable on 3 L nasal cannula with a sat 94%. He is remained afebrile overnight. His blood pressure is stable. He is able to eat breakfast without any issues. Physical Exam Constitutional: cooperative; no acute distress Neck: trachea midline, no thyromegaly Respiratory: normal respiratory effort Auscultation: + diminished lung sounds (Breath sounds absent on the right base); no crackles, no rales, no rhonchi and no wheezes Cardiovascular: Rate/Rhythm: regular rate and regular rhythm Heart Sounds: normal S1 and normal S2 Gastrointestinal (Abdomen): Inspection/Auscultation: abdomen normal to inspection Percussion/Palpation: abdomen soft; abdomen nontender, no guarding, abdomen not rigid and no hepatosplenomegaly Skin: no rashes, warm and dry Results & Data Results & Data ([facility]) Vital Signs (Past 12 Hours) Vital Signs Temp Pulse Pulse Resp BP Pulse Ox 08/03/19 07:29 36.7 C 90 22 113/72 94 08/03/19 04:03 36.7 C 80 20 111/62 95 08/03/19 00:00 90 08/02/19 23:59 72 08/02/19 23:12 36.7 C 83 16 106/67 93 PG Care Time/CCT Total # of Minutes Spent Total Time Spent with Patient: Total time spent is greater than 50% in coordination of care (as documented) at patient's floor/unit and/or counseling patient: Coding Level of Care Code 34932 Subseq Hosp Care Lvl 2 Diagnoses Acute on chronic respiratory failure with hypoxemia J96.21 Pneumonia J18.9 Elevated troponin R79.89 Hypertension I10 Hypertension type: essential hypertension Acute kidney failure N17.9 Aspiration into airway T17.908A (1) Hypertension Hypertension type: essential hypertension Qualified Code(s): I10 - Essential (primary) hypertension
--- NOTE | 2019-08-03 12:05 | Pulmonary Consultation ---
Date of Consultation August 03, 2019 Assessment & Plan (1) Acute on chronic respiratory failure with hypoxemia: -- Acute on chronic hypoxic hypercapnic respiratory failure Complex etiology patient has restrictive lung disease on top of kyphosis as well as taking pain medication ABG at the time of presentation 7.36/57/60 on 3 L nasal cannula Diffuse infiltrates appreciated bilaterally on chest x-ray with increased vascular markings. Would continue with antibiotics and follow-up septic work-up. Recommend 2D echo to be done to look at his heart given the BNP was greater than 6000 Maintain SPO2 between 88 to 92% Patient's hypercapnia is chronic and has been likely secondary to his underlying opioid use on top of restrictive lung disease and kyphosis. Patient would likely benefit from BiPAP nightly and PRN shortness of breath. Patient is supposed to have polysomnography done as an outpatient which was postponed because of the lockdown. Patient was Covid-19 rule out at the time of presentation with lymphopenia(which has now resolved). the test is negative. Procalcitonin 0.13. Plan: We will order urine Legionella and serum mycoplasma IgM given patient hyponatremia as well as bilateral diffuse alveolar infiltrates appreciated on the chest x-ray. We will start the patient on antibiotics for atypical coverage. Doxycycline. Recommend gentle diuresis and follow-up of 2D echo. Please note the above document was generated using voice recognition software. It may contain grammatical, syntax or spelling errors. (2) Acute kidney failure: (3) Pneumonia: (4) Pulmonary hypertension: History of Present Illness Attending Physician: Peña Sims DO History of Present Illness 68-year-old male with past medical history of chronic hypoxic respiratory failure on 2 L oxygen at home, chronic elevation of the right hemidiaphragm, restrictive lung dysfunction from kyphosis, chronic aspiration, history of esophageal stricture status post dilatation was admitted to the hospital with complaints of fever and worsening shortness of breath which started early during the day of presentation. Patient was found to be febrile with 39.3 C At the time of examination today. Patient states he is feeling much better. He denied any diarrhea, patient has chronic dysuria which has not changed. Denies any pyuria. States that the shortness of breath is improved and is feeling better. He has chronic cough which is no change in consistency or frequency. Patient denies any chest pain. He says he has been urinating well. Good appetite. Denies any nausea or vomiting. Denies coughing a lot when eating. Social history: Less than 5-pack-year smoking history, denies any illicit drug use, social alcohol Seasonal allergies Patient follows up with Dr. King as an outpatient for his pulmonary issues. Allergies Allergy/AdvReac Type Severity Reaction Status Date / Time bee venom protein (honey bee) Allergy Intermediate EXCESSIVE Verified 08/02/19 16:06 SWELLING AT SITE sulfamethoxazole Allergy Intermediate TONGUE Verified 08/02/19 16:06 SWELLS, WHITE BLISTERS IN MOUTH. trimethoprim Allergy Intermediate TONGUE Verified 08/02/19 16:06 SWELLS, WHITE BLISTERS IN MOUTH. adhesive Allergy Mild SKIN Verified 08/02/19 16:06 IRRITATION morphine AdvReac Intermediate PROJECTILE Verified 08/02/19 16:06 VOMITING Home Medications Home Medications Medication Instructions Recorded Confirmed Type aspirin [Aspirin Low Dose] 81 mg PO DAILY #30 tab 09/11/18 08/02/19 Rx cyclobenzaprine 10 mg tablet 10 mg PO HS 02/28/19 08/02/19 History fentanyl 50 mcg/hr transdermal 1 patch TD Q OTHER DAY ea 02/28/19 08/02/19 History patch meloxicam 15 mg tablet 15 mg PO DAILY 02/28/19 08/02/19 History omeprazole 20 mg capsule,delayed 20 mg PO QAM cap 02/28/19 08/02/19 History release pramipexole 0.5 mg tablet 0.5 mg PO DAILY 02/28/19 08/02/19 History venlafaxine 75 mg capsule,extended 75 mg PO BID cap 02/28/19 08/02/19 History release 24 hr hydrocodone 10 mg-acetaminophen 1 tab PO QID PRN 03/13/19 08/02/19 History 325 mg tablet loratadine 10 mg tablet 10 mg PO DAILY 03/13/19 08/02/19 History benzonatate 100 mg capsule 100 mg PO BID PRN 04/10/19 08/02/19 History fluticasone propionate 50 2 spray INTNAS DAILY #15.8 gm 04/10/19 08/02/19 Rx mcg/actuation nasal spray,suspension ondansetron 4 mg disintegrating 4 mg PO Q8H PRN 04/10/19 08/02/19 History tablet cholecalciferol (vitamin D3) 25 1,000 units PO BID cap 06/10/19 08/02/19 History mcg (1,000 unit) capsule alfuzosin [Uroxatral] 10 mg PO DAILY 08/02/19 08/02/19 History dicyclomine 10 mg PO BID PRN 08/02/19 08/02/19 History gabapentin 200 mg PO BID 08/02/19 08/02/19 History lisinopril 5 mg PO DAILY 08/02/19 08/02/19 History Patient History Medical History Altered mental state (Acute) Chronic back pain Depression Elevated brain natriuretic peptide (BNP) level (Acute) Facial laceration (Resolved) Fever (Acute) GERD (gastroesophageal reflux disease) Headache (Acute) Hypercapnia (Acute) Hypertension Hypoxia (Acute) Hypoxia (Acute) Leukocytosis (Acute) Leukocytosis Lymphadenopathy Metabolic encephalopathy Non-ST elevation ND (NSTEMI) (Acute) Pleural effusion, right Pneumonia (Acute) Right upper quadrant abdominal pain (Acute) Sepsis Surgical History History of ankle surgery Britton reconstruction-right side History of carpal tunnel release History of surgery mass removed from left side of clavicle Status post trigger finger release Family History Mother Cancer Son Environmental allergies Asthma Other Gallbladder disease Hypertension No family history of bleeding disorder Social History Preferred Language: [place] Communication Ability: Effective 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 Required: No Beliefs That Will Affect Care: Episcopal Episcopal Beliefs: Romelia marital status: Current Living Situation: Spouse current occupational status: retired Other Information That Helps Us Care for You: No Feels Safe at Home: Yes Safety Concerns: Feels Safe At This Time Smoking Status: Former smoker Tobacco Type: cigarettes ; Do You Dip or Chew Tobacco: No ; Second Hand Exposure: No ; Hx Alcohol Use: No Hx Substance Use: No Review of Systems Review of Systems: All systems reviewed & are unremarkable except as noted in HPI & below Physical Exam Physical Exam: Constitutional: No acute distress HEENT: EOMI, PERRLA Respiratory system: Decreased air entry bilaterally, positive crackles bilaterally, no wheeze, no rhonchi, kyphosis appreciated CVS: S1-S2 positive, no murmurs or gallops Abdomen: Soft, nontender, nondistended, positive bowel sounds x4 Extremities: +2 pulses bilaterally radialis/ dorsalis pedis, no cyanosis, no edema Neuro: Awake alert oriented x3 Psych: Normal mood and affect G/U: No Bran Skin: no rashes, warm and dry Lymphatic: no cervical or axillary lymphadenopathy Results & Data Results & Data ([facility]) Vital Signs (Past 12 Hours) Vital Signs Temp Pulse Resp BP Pulse Ox 08/03/19 07:29 36.7 C 90 22 113/72 94 08/03/19 04:03 36.7 C 80 20 111/62 95 08/03/19 05:39 08/03/19 05:39 Chest x-ray done 08/02/2019 personally reviewed: There is diffuse alveolar infil trates appreciated bilaterally with increased vascular markings. No clear pleural effusion appreciated. Elevated BNP. PG Care Time/CCT Total # of Minutes Spent Total Time Spent with Patient: Total time spent is greater than 50% in coordination of care (as documented) at patient's floor/unit and/or counseling patient: Coding Level of Care Code 52361 Initial Inpt Care Lvl 3 Diagnoses Acute on chronic respiratory failure with hypoxemia J96.21 Acute kidney failure N17.9 Pneumonia J18.9 Pulmonary hypertension I27.20
[2019-08-03] MEDS: SODIUM CHLORIDE 0.9% 1000ML 1,000 ML IV SCH (12:28)
[2019-08-03] MEDS: PANTOprazole 40 MG TAB PO SCH (13:27)
[2019-08-03] MEDS: DOXYCYCLINE HYCLATE 100 MG CAP PO SCH ×2 (15:40→19:51)
[2019-08-03] MEDS: CYCLOBENZAPRINE HCL 10 MG TAB PO SCH (19:53)
[2019-08-04] MEDS: CHECK FENTANYL PATCH PLACEMENT SCH ×4 (01:45→23:16)
[2019-08-04] MEDS: SODIUM CHLORIDE 0.9% 1000ML 1,000 ML IV SCH (03:45)
[2019-08-04] MEDS: PIPERACILLIN/TAZOBACTAM 3.375 GM in DEXTROSE 5% 100 ML IV SCH (06:05)
[2019-08-04] MEDS: HEPARIN SOD 5,000 UNIT/0.5 ML VIAL SQ SCH ×2 (06:05→20:56)
[2019-08-04 06:42] LABS: Basophils # (auto) 0.02 K/uL (0-0.2); Basophils % (auto) 0.2 %; Eosinophils % (auto) 1.5 %; Hematocrit (blood only) 34.9 % (42-52); Hemoglobin 11.5 g/dL (14.0-18.0); Immature Granulocytes # (auto) 0.05 K/uL (0.00-0.02); Immature Granulocytes % (auto) 0.4 %; Lymphocytes # (auto) 1.42 K/uL (1.2-3.4); Mean Corpuscular Hemoglobin 31.8 pg (25-34); Mean Corpuscular Volume 96.4 fL (80-100); Monocytes # (auto) 1.06 K/uL (0.11-0.59); Monocytes % (auto) 8.2 %; Neutrophils # (auto) 10.18 K/uL (1.4-6.5); Neutrophils % (auto) 78.7 %; Platelet Count 254 K/uL (130-400); RDW Coefficient of Variation 14.4 % (11.5-14.5); RDW Standard Deviation 50.2 fL (36.4-46.3); Red Blood Count 3.62 M/uL (4.7-6.1); White Blood Count 12.93 K/uL (4.8-10.8)
[2019-08-04 07:24] LABS: BUN Creatinine Ratio 16.4 (10-20); Creatinine Clr Calc Pharmacy 76.8 ml/min; Est GFR (African American) 79.2; Est GFR (Non-African American) 68.3; Potassium 4.4 mmol/L (3.5-5.1)
[2019-08-04] MEDS: LORATADINE 10 MG TAB PO SCH (08:36)
[2019-08-04] MEDS: PRAMIPEXOLE DIHYDROCHLO 0.5 MG TAB PO SCH (08:36)
[2019-08-04] MEDS: DOXYCYCLINE HYCLATE 100 MG CAP PO SCH ×2 (08:36→20:58)
[2019-08-04] MEDS: MELOXICAM 7.5 MG TAB PO SCH (08:36)
[2019-08-04] MEDS: VENLAFAXINE HCL XR 75 MG CAPXR PO SCH ×2 (08:37→20:57)
[2019-08-04] MEDS: ASPIRIN 81 MG ECTAB PO SCH (08:37)
[2019-08-04] MEDS: ALFUZOSIN HCL 10 MG TAB PO SCH (08:37)
[2019-08-04] MEDS: GABAPENTIN 100 MG CAP PO SCH ×2 (08:37→20:56)
[2019-08-04] MEDS: PANTOprazole 40 MG TAB PO SCH (08:37)
[2019-08-04] MEDS: CHOLECALCIFEROL 1,000 UNITS 25 MCG TAB PO SCH ×2 (08:37→20:57)
[2019-08-04] MEDS: HYDROCODONE/ACETAMINOPHEN 10/325 TAB PO PRN ×3 (08:45→23:16)
--- NOTE | 2019-08-04 08:53 | XRay Report ---
XR chest 1V portable HISTORY: Follow-up. Abnormal chest x-ray. Shortness of breath. COMPARISON: Chest 08/02/2019. FINDINGS: Chronic elevation of the right hemidiaphragm. The heart is stable in size. No pneumothorax. No pleural effusions. The left lung is essentially clear. Patchy airspace opacities within the right lung have slightly improved. Questionable small amount of pneumoperitoneum at the right hemidiaphrag m. IMPRESSION: 1. Questionable pneumoperitoneum at the right hemidiaphragm. Repeat upright chest x-ray or left later al decubitus KUB recommended for further evaluation. 2. Patchy densities within the right lung have slightly improved. This may represent resolving pulmon tyler edema or pneumonia. 3. These findings were called/faxed to the referring physician following dictation. ACT 112: Negative or not required by law. Electronically signed by: Dandy Chawla M.D. 08/04/2019 8:52 AM
[2019-08-04] MEDS: lisinopriL 5 MG TAB PO SCH (09:13)
--- NOTE | 2019-08-04 10:07 | Pulmonology Progress Note ---
Date of Service August 04, 2019 Assessment & Plan (1) Acute on chronic respiratory failure with hypoxemia: Impression: 68-year-old male with obesity and chronically elevated right hemidiaphragm with multifactorial hypercapnic respiratory failure at baseline admitted with pulmonary infiltrates and probable pneumonia. Testing for novel coronavirus negative. Recommendations: 1. Acute on chronic hypoxemic and hypercapnic respiratory failure: Continue supplemental oxygen titrated to keep saturations at 88%. 2. Elevated left hemidiaphragm: No intervention possible for the patient's elevated hemidiaphragm. He has been set up with a sleep study in the outpatient setting to see whether or not he would qualify for noninvasive positive pressure ventilation. Given the elevated PCO2 during this hospitalization, he may qualify and consultation with case management to see whether or not the patient would be a candidate for trilogy may be approved. 3. Probable pneumonia: Day #3 doxycycline and Zosyn. White blood cell count slowly decreasing. Appropriate de-escalate therapy to doxycycline and cefoxitin. Anticipate need for 7 days antimicrobial therapy. Continue to trend white blood cell count and clinical response. 4. Continue attempts to increase mobility. Once the patient is able to ambulate, he may be eligible to discharge home. He will require follow-up chest x-ray in 2 to 4 weeks with follow-up with pulmonary. This can be done via the portal or via virtual follow-up. (2) Recurrent pneumonia: (3) Hypercapnic respiratory failure: Admission and Anticipated Discharge Date Admission Date: August 02, 2019 Subjective Patient seen and examined. EMR reviewed. Discussed case with . Patient states that his breathing is improved. He is ambulatory. He is weaned his oxygen down significantly. He reports occasional cough but is not really expectorating phlegm. He did use noninvasive positive pressure ventilation last evening. He feels that it may have resulted in some expansion of his lungs but did not feel significantly different with the therapy. He is not had any fevers chills or night sweats. He is tolerating a regular diet at this point time. Review of Systems Review of Systems: Unchanged from prior Results & Data Results & Data ([facility]) Vital Signs (Past 12 Hours) Vital Signs Temp Pulse Pulse Resp BP BP Pulse Ox 08/04/19 08:00 80 08/04/19 07:54 37.3 C 89 20 156/90 H 93 08/04/19 05:03 37.5 C 90 20 138/74 94 08/04/19 02:55 89 21 96 08/04/19 00:06 36.9 C 100 H 19 169/94 H 90 08/03/19 23:05 94 H 08/03/19 22:17 95 H 20 100 Laboratory Results 08/04/19 06:10 08/04/19 06:10 Mycoplasma and Legionella pending PG Care Time/CCT Total # of Minutes Spent Total Time Spent with Patient: Total time spent is greater than 50% in coordination of care (as documented) at patient's floor/unit and/or counseling patient: Coding Level of Care Code 06422 Subseq Hosp Care Lvl 3 Diagnoses Acute on chronic respiratory failure with hypoxemia J96.21 Recurrent pneumonia J18.9 Hypercapnic respiratory failure J96.92
--- NOTE | 2019-08-04 10:48 | XRay Report ---
ABDOMEN 2 VIEWS HISTORY: r/o pneumoperitoneum COMPARISON: Chest 08/04/2019. FINDINGS: No pneumoperitoneum. No pneumatosis. Atelectasis is again noted at the right lung base. The bowel gas pattern is unremarkable. No evidence for bowel obstruction. No renal or ureteral calculi i dentified. IMPRESSION: No evidence for bowel obstruction. No pneumoperitoneum. ACT 112: Negative or not required by law. Electronically signed by: Dandy Chawla M.D. 08/04/2019 10:46 AM
--- NOTE | 2019-08-04 11:28 | Hospitalist Progress Note ---
Date of Service August 04, 2019 Assessment & Plan (1) Acute on chronic respiratory failure with hypoxemia: Patient does have a history of chronic respiratory failure, now appears to be in acute hypoxic respiratory failure as well. He seems to be closer to his baseline, on 3 L nasal cannula with sats in the low 90s which is appropriate. Will need PT/OT prior to discharge. (2) Pneumonia: Appreciate input of pulmonology. A Mycoplasma and Legionella have been sent, will await for those results. Was also stressed the patient can be converted over to oral medications to finish a 7-day course. I would like to keep the patient until these extra test resulted, I would consider discharge in the morning if negative on regimen as suggested. Patient is undergoing barium swallow evaluation as recommended by speech therapy. Await these results. (3) Elevated troponin: Likely secondary to cardiac strain rather than discrete non-STEMI. Will continue to trend enzymes. Continue medications as noted, including low-dose aspirin, lisinopril,. Check fasting lipids. (4) Hypertension: Patient with low normal blood pressure, hold lisinopril for now (5) Acute kidney failure: Renal failure much improved with fluids, patient did have an elevated BNP on admission and a 2D echo was considered by pulmonology. Will hold off on this for now as patient has improved significantly, can consider as an outpatient if patient has continued respiratory issues.. I do see there is an old echo from August 2018 which did not show any significant abnormalities outside of pulmonary hypertension.. (6) Aspiration into airway: Discussed with speech therapy, he is well-known to their service. They will perform repeat barium swallow in the morning. Continue diet per their recommendations. (7) Abnormal x-ray: Patient had repeat chest x-ray was concerning for possible pneumoperitoneum under the right diaphragm. Repeat films of the chest, abdomen, and l lateral decubitus film were performed without any findings. Patient does have a chronically elevated right hemidiaphragm which is unchanged and repeat films. Admission and Anticipated Discharge Date Admission Date: August 02, 2019 Subjective Patient seen and examined briefly, was asleep and not arousable to voice and gentle agitation. I did discuss with the nurse at bedside. She tells me the patient has been doing well and had not had any previous complaints. I do see vitals been stable and the patient has been afebrile overnight. Physical Exam Physical Exam: Exam deferred for reasons as noted above Results & Data Results & Data ([facility]) Vital Signs (Past 12 Hours) Vital Signs Temp Pulse Pulse Resp BP BP Pulse Ox 08/04/19 08:00 80 08/04/19 07:54 37.3 C 89 20 156/90 H 93 08/04/19 05:03 37.5 C 90 20 138/74 94 08/04/19 02:55 89 21 96 08/04/19 00:06 36.9 C 100 H 19 169/94 H 90 PG Care Time/CCT Total # of Minutes Spent Total Time Spent with Patient: Total time spent is greater than 50% in coor dination of care (as documented) at patient's floor/unit and/or counseling patient: Coding Level of Care Code 10540 Subseq Hosp Care Lvl 2 Diagnoses Acute on chronic respiratory failure with hypoxemia J96.21 Pneumonia J18.9 Elevated troponin R79.89 Hypertension I10 Hypertension type: essential hypertension Acute kidney failure N17.9 Aspiration into airway T17.908A Abnormal x-ray R93.89 (1) Hypertension Hypertension type: essential hypertension Qualified Code(s): I10 - Essential (primary) hypertension
--- NOTE | 2019-08-04 11:36 | Fluoroscopy Report ---
FL barium swallow CLINICAL HISTORY: assess for esophageal dysphagia. Coughing with eating and drinking. COMPARISON STUDY: None. FINDINGS: Total fluoroscopy time was 1.1 minutes. 23 fluoroscopic spot images submitted. The patient swallowed barium without difficulty. The contours of the hypopharynx are within normal limits. The es ophagus is normal in course and caliber. Mild esophageal dysmotility. No significant hiatus hernia. T here is moderate to severe gastroesophageal reflux demonstrated. The barium tablet passed without dif ficulty. IMPRESSION: 1. Moderate to severe gastroesophageal reflux. 2. Mild esophageal dysmotility. ACT 112: Negative or not required by law. Electronically signed by: Dandy Chawla M.D. 08/04/2019 11:35 AM
[2019-08-04] MEDS: fentaNYL 50 MCG/HR TDSY TD SCH (20:53)
[2019-08-04] MEDS: cefUROXime axetil 500 MG TAB PO SCH (20:56)
[2019-08-04] MEDS: CYCLOBENZAPRINE HCL 10 MG TAB PO SCH (20:57)
[2019-08-05 07:49] LABS: Basophils # (auto) 0.03 K/uL (0-0.2); Basophils % (auto) 0.3 %; Eosinophils # (auto) 0.26 K/uL (0-0.5); Eosinophils % (auto) 2.6 %; Hematocrit (blood only) 31.6 % (42-52); Hemoglobin 10.3 g/dL (14.0-18.0); Immature Granulocytes # (auto) 0.05 K/uL (0.00-0.02); Immature Granulocytes % (auto) 0.5 %; Lymphocytes # (auto) 2.13 K/uL (1.2-3.4); Lymphocytes % (auto) 21.2 %; Mean Corpuscular Hgb Conc 32.6 g/dL (32-36); Mean Corpuscular Volume 95.2 fL (80-100); Mean Platelet Volume 9.4 fL (7.4-10.4); Monocytes # (auto) 0.88 K/uL (0.11-0.59); Monocytes % (auto) 8.8 %; Neutrophils # (auto) 6.69 K/uL (1.4-6.5); Neutrophils % (auto) 66.6 %; Platelet Count 260 K/uL (130-400); RDW Coefficient of Variation 14.4 % (11.5-14.5); RDW Standard Deviation 49.7 fL (36.4-46.3); Red Blood Count 3.32 M/uL (4.7-6.1); White Blood Count 10.04 K/uL (4.8-10.8)
[2019-08-05] MEDS: cefUROXime axetil 500 MG TAB PO SCH (08:12)
[2019-08-05] MEDS: PRAMIPEXOLE DIHYDROCHLO 0.5 MG TAB PO SCH (08:13)
[2019-08-05] MEDS: MELOXICAM 7.5 MG TAB PO SCH (08:13)
[2019-08-05] MEDS: VENLAFAXINE HCL XR 75 MG CAPXR PO SCH (08:13)
[2019-08-05] MEDS: lisinopriL 5 MG TAB PO SCH (08:13)
[2019-08-05] MEDS: CHOLECALCIFEROL 1,000 UNITS 25 MCG TAB PO SCH (08:13)
[2019-08-05] MEDS: GABAPENTIN 100 MG CAP PO SCH (08:13)
[2019-08-05] MEDS: DOXYCYCLINE HYCLATE 100 MG CAP PO SCH (08:13)
[2019-08-05] MEDS: ALFUZOSIN HCL 10 MG TAB PO SCH (08:13)
[2019-08-05] MEDS: LORATADINE 10 MG TAB PO SCH (08:13)
[2019-08-05] MEDS: PANTOprazole 40 MG TAB PO SCH (08:13)
[2019-08-05] MEDS: ASPIRIN 81 MG ECTAB PO SCH (08:13)
[2019-08-05] MEDS: HEPARIN SOD 5,000 UNIT/0.5 ML VIAL SQ SCH (08:14)
[2019-08-05] MEDS: CHECK FENTANYL PATCH PLACEMENT SCH (08:14)
[2019-08-05 08:16] LABS: BUN Creatinine Ratio 14.7 (10-20); Calcium 8.7 mg/dl (8.5-10.1); Creatinine Clr Calc Pharmacy 86.7 ml/min; Est GFR (African American) 92.1; Est GFR (Non-African American) 79.5; Potassium 3.7 mmol/L (3.5-5.1)
[2019-08-05] MEDS: HYDROCODONE/ACETAMINOPHEN 10/325 TAB PO PRN (08:23)
--- NOTE | 2019-08-05 10:42 | Discharge Summary ---
Date of Service August 05, 2019 Admission HPI Per Admitting Provider This is a 68-year-old male with past medical history of chronic hypoxic respiratory failure on home oxygen, chronic aspiration, GERD that presents today with altered mental status and fever. Patient is improved and is decent story. He is accompanied by his who is able to fill in details. Patient is apparently doing well this week up until earlier this morning. The woke up and noted that he had knocked his oxygen over. At that time he seemed a little " weird" and that he seemed a little more week as well as argumentative. She thought this was because his oxygen was off but had since been replaced. She went to the store and came back and found that the patient had worsened considerably. He was much more weak and unable to hold anything. They were unable to dress him without the assistance of their son. The patient appeared to be somewhat tachypneic as well which prompted eventual presentation to the emergency room. Patient was febrile to 39.3 C here. The denied any fevers at home. Here he was started on 3 L oxygen but only had a sat to 90%. He is now on 4 L with improvement to 91%. The notes that the patient does seem to be a bit more clear now and is roughly at his baseline. Patient does describe loose sounding cough without any production. He denies any chest pain. He does have some jerking myoclonic-like movements of his lower extremities which are apparently chronic in this patient. He does not appear to be in any acute significant distress. Admission Exam Per Admitting Provider Constitutional: + morbidly obese, + disheveled and cooperative; no acute distress Neck: trachea midline, no thyromegaly Respiratory: normal respiratory effort Auscultation: + diminished lung sounds (Absent the right base. Fine rales at bases. No overt wheeze or rhonchi); no crackles, no rales, no rhonchi and no wheezes Cardiovascular: Rate/Rhythm: regular rate and regular rhythm Heart Sounds: normal S1, normal S2 and + murmur Gastrointestinal (Abdomen): Inspection/Auscultation: abdomen normal to inspection Percussion/Palpation: abdomen soft; abdomen nontender, no guarding, abdomen not rigid and no hepatosplenomegaly Skin: no rashes, warm and dry Neurologic: PERRL, EOMI, accommodation nl, no face palsy, no dysarthria Psychiatric: A+Ox3, euthymic affect Principal Diagnosis 1. Bibasilar pneumonia, likely secondary to microaspiration 2. Acute hypercapnic respiratory failure 3. Elevated troponin, likely secondary to cardiac strain 4. Acute kidney injury, secondary to dehydration and since resolved 5. Previous history of chronic diastolic CHF Discharge Data Allergies Allergy/AdvReac Type Severity Reaction Status Date / Time bee venom protein (honey bee) Allergy Intermediate EXCESSIVE Verified 08/02/19 16:06 SWELLING AT SITE sulfamethoxazole Allergy Intermediate TONGUE Verified 08/02/19 16:06 SWELLS, WHITE BLISTERS IN MOUTH. trimethoprim Allergy Intermediate TONGUE Verified 08/02/19 16:06 SWELLS, WHITE BLISTERS IN MOUTH. adhesive Allergy Mild SKIN Verified 08/02/19 16:06 IRRITATION morphine AdvReac Intermediate PROJECTILE Verified 08/02/19 16:06 VOMITING Consultations 08/02/19 17:14 ED Decision to Admit Stat 08/02/19 18:22 Consult Pulmonology Routine Ordered Studies 08/04/19 10:31 FL barium swallow Routine Hospital Course (1) Acute on chronic respiratory failure with hypoxemia: Patient does have a history of chronic respiratory failure, now appears to be in acute hypoxic respiratory failure as well. Patient initially required 4 L but this was titrated down to 3 L with course of his admission which she has been tolerating well. (2) Pneumonia: At time his presentation, I suspect that the patient had pneumonia secondary to aspiration. He was treated as a COVID-19 rule out but had a negative PCR prior to leaving the ER. Patient was continued on Zosyn. Pulmonology was consulted to see the patient and added doxycycline for possible atypical CAP. Patient had a very good response this course. On the day prior to discharge she was changed over to cefuroxime and doxycycline p.o. Recommendation was for 7 days full course. Of note, a urine Legionella and mycoplasma pneumonia IgM were both ordered and are pending at time of discharge. Patient is clinically much improved but results of this testing should be noted. Patient was also seen by speech therapy. He underwent a video swallow study. He was found to have mild esophageal dysmotility along with severe reflux. He was tolerating a regular diet and using liquids frequently to clear his esophagus which was considered appropriate. (3) Elevated troponin: Likely secondary to cardiac strain rather than discrete non-STEMI. Repeat cardiac enzymes showed a drop, making this more likely to be cardiac strain. Patient had no chest pain or other symptoms during the course of his admission. (4) Hypertension: Patient with low normal blood pressure, hold lisinopril for now (5) Acute kidney failure: I suspect patient was mildly dehydrated with prerenal azotemia. Patient was hydrated with normal saline over 24 hours and seemed to improve with this. Of note, he did have an elevated BNP and is known to have pulmonary hypertension secondary to his chronic lung disorder. Fluids were stopped at 48 hours and the patient was able to take oral food and liquids ad osmani. BUN of 14 creatinine 0.8 at time of discharge which is his present baseline. (6) Aspiration into airway: Discussed with speech therapy, he is well-known to their service. Video swallow noted above. Patient is cleared for regular diet. (7) Abnormal x-ray: Patient had repeat chest x-ray was concerning for possible pneumoperi toneum under the right diaphragm. Repeat films of the chest, abdomen, and l lateral decubitus film were performed without any findings. Patient does have a chronically elevated right hemidiaphragm which is unchanged and repeat films. Total Time Total Time Spent Total Time Spent (In Minutes): Discharge preparation time in excess of 30 minutes Discharge Plan Discharge Items Patient Disposition: Home - Self-Care Reason For Visit: HYPOXIC RESP FAILURE Discharge Diagnosis: 1. Bibasilar pneumonia, likely secondary to microaspiration 2. Acute hypercapnic respiratory failure 3. Elevated troponin, likely secondary to cardiac strain 4. Acute kidney injury, secondary to dehydration and since resolved 5. Previous history of chronic diastolic CHF Activity: Resume your previous activity Lifting: Gradually increase as tolerated Sexual Activity: When tolerated Weightbearing: Full weightbearing Non-emergency contact: Primary Care Provider and Racing Car Driver Call non-emergency contact if: your symptoms worsen and your temperature is above 101 Follow-up/Referrals: Mo King MD [Physician] - PCP,NO [Primary Care Provider] - Diet: Heart Healthy Addtl Attending Provider Instructions: Continue 3 L nasal cannula as instructed Pending Studies at Discharge: Yes Studies:: Legionella and mycoplasma IgM Stand-Alone Forms: [employer], Smoking Cessation Medications and DC Order Prescriptions: New doxycycline hyclate 100 mg Capsule 100 mg PO BID 4 Days Qty: 8 RF: 0 cefuroxime axetil 500 mg Tablet 500 mg PO BID 4 Days Qty: 8 RF: 0 Continued fentanyl 50 mcg/hr patch 72 hour 1 patch TD Q OTHER DAY RF: 0 pramipexole 0.5 mg tablet 0.5 mg PO DAILY RF: 0 cyclobenzaprine 10 mg tablet 10 mg PO HS RF: 0 meloxicam 15 mg tablet 15 mg PO DAILY RF: 0 venlafaxine 75 mg capsule,extended release 24hr 75 mg PO BID RF: 0 loratadine [Claritin] 10 mg tablet 10 mg PO DAILY RF: 0 hydrocodone-acetaminophen 10-325 mg tablet 1 tab PO QID PRN (Reason: Pain) RF: 0 benzonatate 100 mg capsule 100 mg PO BID PRN (Reason: Cough) RF: 0 ondansetron 4 mg tablet,disintegrating 4 mg PO Q8H PRN (Reason: Nausea And Vomiting) RF: 0 fluticasone propionate 50 mcg/actuation spray,suspension 2 spray INTNAS DAILY Qty: 15.8 RF: 2 cholecalciferol (vitamin D3) 25 mcg (1,000 unit) capsule 1,000 units PO BID RF: 0 omeprazole 20 mg capsule,delayed release(DR/EC) 20 mg PO QAM RF: 0 aspirin [Aspirin Low Dose] 81 mg tablet,delayed release (DR/EC) 81 mg PO DAILY Qty: 30 RF: 9 gabapentin 100 mg Capsule 200 mg PO BID RF: 0 lisinopril 5 mg tablet 5 mg PO DAILY RF: 0 alfuzosin [Uroxatral] 10 mg tablet extended release 24 hr 10 mg PO DAILY RF: 0 dicyclomine 10 mg Capsule 10 mg PO BID PRN (Reason: ABD CRAMPING) RF: 0 Discharge Orders: Discharge Order (Routine); Ordered 08/05/19 Ordered By: Peña Sims Admission Data Admit Date/Time: 08/02/19 17:09 Attending Provider: Peña Sims Admit Provider: Peña Sims Primary Care Provider: PCP,NO Other Providers: Peña Sims ; Mo King Coding Level of Care Code D/C Day Management >30 mins Diagnoses Acute on chronic respiratory failure with hypoxemia J96.21 Pneumonia J18.9 Elevated troponin R79.89 Hypertension I10 Hypertension type: essential hypertension Acute kidney failure N17.9 Aspiration into airway T17.908A Abnormal x-ray R93.89
--- NOTE | 2019-08-05 11:29 | Pulmonology Progress Note ---
Date of Service August 05, 2019 Assessment & Plan (1) Acute on chronic respiratory failure with hypoxemia: Impression: 68-year-old male with obesity and chronically elevated right hemidiaphragm with multifactorial hypoxemic and hypercapnic respiratory failure at baseline admitted with pulmonary infiltrates and probable pneumonia. Testing for novel coronavirus negative. Recommendations: 1. Acute on chronic hypoxemic and hypercapnic respiratory failure: Continue supplemental oxygen titrated to keep saturations at 88%. 2. Elevated left hemidiaphragm: No intervention possible for the patient's elevated hemidiaphragm. He has been set up with a sleep study in the outpatient setting to see whether or not he would qualify for noninvasive positive pressure ventilation. Given the elevated PCO2 during this hospitalization, he may qualify and consultation with case management to see whether or not the patient would be a candidate for trilogy may be approved. 3. Probable pneumonia: Antibiotics de-escalated to doxycycline and Ceftin. Complete 7-day course. Follow-up chest x-ray in 2 weeks as noted below. I placed the order for his chest x-ray 4. Continue attempts to increase mobility. Once the patient is able to ambulate, he may be eligible to discharge home. He will require follow-up chest x-ray in 2 to 4 weeks with follow-up with pulmonary. This can be done via the portal or via virtual follow-up. (2) Recurrent pneumonia: (3) Hypercapnic respiratory failure: Admission and Anticipated Discharge Date Admission Date: August 02, 2019 Subjective Patient seen and examined. EMR reviewed. He is doing well clinically. He did use noninvasive positive pressure ventilation last evening. He is unclear if it is offering him a benefit. He is coughing less. Less sputum production. Less shortness of breath. He is back to his baseline oxygen requirement. There are plans in place to discharge him today. Review of Systems Review of Systems: Unchanged from prior Physical Exam Physical Exam: Constitutional: No acute distress HEENT: EOMI, PERRLA Respiratory system: Decreased air entry bilaterally, positive crackles bilaterally, no wheeze, no rhonchi, kyphosis appreciated CVS: S1-S2 positive, no murmurs or gallops Abdomen: Soft, nontender, nondistended, positive bowel sounds x4 Extremities: +2 pulses bilaterally radialis/ dorsalis pedis, no cyanosis, no edema Neuro: Awake alert oriented x3 Psych: Normal mood and affect G/U: No Bran Skin: no rashes, warm and dry Lymphatic: no cervical or axillary lymphadenopathy Results & Data Results & Data ([facility]) Vital Signs (Past 12 Hours) Vital Signs Temp Pulse Pulse Resp BP BP Pulse Ox 08/05/19 10:45 37.3 C 68 16 140/81 182/90 H 93 08/05/19 08:00 59 L 08/05/19 07:36 37.3 C 68 16 140/81 93 08/05/19 03:11 37.1 C 69 18 142/71 H 97 08/05/19 02:47 70 19 97 08/05/19 00:16 78 159/80 H 08/05/19 00:00 73 08/04/19 23:37 36.9 C 86 20 182/90 H 92 Laboratory Results 08/05/19 07:33 08/05/19 07:33 Diagnostic Findings No new films PG Care Time/CCT Total # of Minutes Spent Total Time Spent with Patient: Total time spent is greater than 50% in coordination of care (as documented) at patient's floor/unit and/or counseling patient: Coding Level of Care Code 02006 Subseq Hosp Care Lvl 2 Diagnoses Acute on chronic respiratory failure with hypoxemia J96.21 Recurrent pneumonia J18.9 Hypercapnic respiratory failure J96.92
--- NOTE | 2019-08-05 13:28 | XCELERA ---
[id number] [id number]
--- NOTE | 2019-08-07 11:46 | Coding Query ---
To promote full compliance with coding requirements relating to patient care, provider participation is requested in all cases of bale tie machine operator uncertainty. Please assist us with the question(s) below: Coding Question(s): The diagnosis below was documented in the ER H&P, then subsequently fell off all further documentation. Please indicate if it is still a possible diagnosis or ruled out. Physician's Response(s): SEPSIS ( x ) Diagnosed and POA ( ) Diagnosed and not POA ( ) Ruled out ( ) Other (please specify) MTDD
== END 2019-08-05 13:01 | disposition home or self-care (01) | DRG 871 ==
LOC: ED 14:38 → 2S 17:09

== ENCOUNTER 2022-02-22 12:11 | Inpatient (IN) ==
--- NOTE | 2022-02-22 13:05 | XRay Report ---
XR chest 2V PA/lateral CLINICAL HISTORY: Sepsis. COMPARISON STUDY: Chest CT January 23, 2019. Chest radiograph November 04, 2021. FINDINGS: Elevation of the right hemidiaphragm is unchanged. There is no pneumothorax or pleural effu donna. Cardiomediastinal silhouette is stable. Multifocal airspace opacities within the right develope d since prior exam. There is mild reticulonodular interstitial thickening within the left lung, simil ar to prior exam. IMPRESSION: Interval development of multifocal airspace opacities within the right lung which favor pneumonia. Radiographic follow-up to ensure resolution is recommended. ACT 112: Negative or not required by law. Electronically signed by: Teo Paulino M.D. 02/22/2022 1:03 PM
[2022-02-22 13:07] LABS: Basophils # (auto) 0.05 K/uL (0-0.2); Basophils % (auto) 0.3 %; Eosinophils # (auto) 0.02 K/uL (0-0.50); Eosinophils % (auto) 0.1 %; Hematocrit (blood only) 42.3 % (40.1-51.0); Hemoglobin 13.4 g/dl (14.0-18.0); Immature Granulocytes # (auto) 0.07 K/uL (0.00-0.02); Immature Granulocytes % (auto) 0.4 %; Lymphocytes # (auto) 0.55 K/uL (1.2-3.4); Lymphocytes % (auto) 3.5 %; Mean Corpuscular Hemoglobin 28.1 pg (25.0-34.0); Mean Corpuscular Hgb Conc 31.7 g/dL (32.0-36.0); Mean Corpuscular Volume 88.7 fL (80.0-100.0); Mean Platelet Volume 10.3 fL (9.4-12.4); Monocytes # (auto) 1.33 K/uL (0.24-0.82); Monocytes % (auto) 8.5 %; Neutrophils # (auto) 13.55 K/uL (1.4-6.5); Neutrophils % (auto) 87.2 %; Platelet Count 231 K/uL (130-400); RDW Coefficient of Variation 17.8 % (11.5-14.5); RDW Standard Deviation 57.8 fL (36.4-46.3); Red Blood Count 4.77 M/uL (4.63-6.08); White Blood Count 15.57 K/ul (4.8-10.8)
[2022-02-22 13:27] LABS: INR 1.1 (0.9-1.1); Partial Thromboplastin Ratio 0.9; Partial Thromboplastin Time 24.8 Seconds (21.0-31.0); Prothrombin Time 11.6 Seconds (9.0-12.0)
[2022-02-22 13:27] LABS: Base Excess VBG 8.7 mEq/L; HCO3 VBG 35 mmol/L; Oxygen Saturation VBG 81.5 %; PCO2 VBG 54 mmHg (38-50); PO2 VBG 48 mmHg; pH VBG 7.42 (7.36-7.41)
--- NOTE | 2022-02-22 13:31 | Emergency Department Note ---
Impression & Plan Pneumonia, Chronic respiratory failure, Acute alteration in mental status ED Provider Note NAME: TIM JAVIER AGE: 71 SEX: M : 1950 ARRIVES VIA: Walk-In INFORMANT: Patient, The patient's [facility] ED PROVIDER(S): Reg Magallanes DO CHIEF COMPLAINT: Difficulty breathing the patient is a 71-year-old male who presented to the emergency department for an evaluation. Patient came to triage. Apparently patient does have a history of HPI: Chronic respiratory issues. 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 The patient's had a history of chronic respiratory failure in the past. Apparently his significant other found him to be in altered mental status facedown in the bed. He was cyanotic and not responsive. 911 was called. 911 arrived on scene and placed the patient on a large amount of oxygen. The patient started to wake up and then refused transportation. His daughter brought him to the emergency department today because he still obtunded and not acting appropriately. The patient self does not offer many complaints. He denies having any fever. He states he has a cough but is nonproductive. He denies having any hemoptysis. He said no lower extremity swelling or pain. The patient's daughter called his primary pulmonary physician. Apparently he is in the ICU and would be able to see the patient if the need arises. ROS: See above HPI for pertinent positives & negatives. A total of 10 systems reviewed and were otherwise negative. PAST MEDICAL HISTORY: See Below PAST SURGICAL HISTORY: See Below FAMILY HISTORY: See Below SOCIAL HISTORY: See Below HOME MEDICATIONS: See Below ALLERGIES: See Below VITALS: See Below PHYSICAL EXAMINATION: GENERAL: The patient is awake to verbal commands. He does appear to be somewhat obtunded and slow to answer questions. EYES: The conjunctivae are clear. The pupils are round and reactive. EARS, NOSE, MOUTH AND THROAT: The nose is without any evidence of any deformity. NECK: The neck is nontender and supple. RESPIRATORY: Hypoventilation was noted. Diminished breath sounds are noted throughout. CARDIOVASCULAR: Regular rate and rhythm noted there no murmurs rubs or gallops normal S1 normal S2. GASTROINTESTINAL: The abdomen is soft. Abdomen is nontender. MUSCULOSKELETAL/EXTREMITIES: There is no evidence of gross deformity full range of motion is noted in the hips and shoulders. SKIN: There is no obvious evidence of any rash. There are no petechiae, pallor or cyanosis noted. NEUROLOGIC: Patient is awake to verbal commands. He follows commands slowly. He appears to be decrease in his mental status compared to his baseline according to his daughter. MEDICAL DECISION MAKING: The patient is a 71-year-old male who presented to the emergency department with his family member for an evaluation of difficulty breathing. The patient had an episode this morning where he was cyanotic. He was having severe difficulty breathing. He was placed on supple oxygen. When he started to wake up he refused transport to the hospital. He was able to refuse transport at that time. When his daughter went to check on him he was having difficulty breathing again and she was able to bring him to the hospital via private vehicle. The patient was somewhat obtunded. He was not retaining CO2. This appears to be more of a encephalopathy. He was treated with supplemental oxygen. He was reevaluated multiple times. He appears to have signs of pneumonia on chest x- ray. He was treated with IV antibiotics. I discussed the patient's laboratory and radiographic studies with him and his family member. I also discussed his case with the on-call [facility] hospitalist. They have agreed to evaluate the patient in the emergency department for further management and disposition. Triage Nursing notes reviewed. Prior medical records reviewed Vital Signs: reviewed and remarkable for hypoxia and tachycardia. Differential diagnosis: Infection, hypoglycemia, electrolyte abnormalities, overdose, toxicologic, cardiac sources, intracerebral event, neurologic, trauma, as well as other pathologies. ER treatment provided: See below Diagnostics interpreted by me: ECG: EKG was obtained in the emergency department. My interpretation is sinus tachycardia 108 bpm. There was no ectopy. LVH was noted by voltage criteria. This was compared to a tracing from November 04, 2021. No changes were noted. Cardiac Monitoring: An order was placed for continuous cardiac monitoring. The monitor shows a rate of 101 bpm with sinus tachycardia. Laboratory studies: As stated above and show below. Imaging studies: See below Consultation(s): I discussed this case with Dr Oliveros ED COURSE: Procedures: none Critical Care: I have personally spent greater than 45 minutes of critical care time in the direct management of this patient. This includes bedside care, interpretation of diagnostic studies, and testing, discussion with consultants, patient, and family members, and other required patient management activities. This 45 minutes is in excess of all separately billable procedures. Past Med/Surg History Medical History Acute on chronic respiratory failure with hypoxemia Atypical chest pain BPH (benign prostatic hyperplasia) Chronic back pain Depression GERD (gastroesophageal reflux disease) History of acute renal failure Hypertension Hypogonadotropic hypogonadism in male Hypoxia Leukocytosis Metabolic encephalopathy Non-ST elevation [place] (NSTEMI) Prostatitis Recurrent pneumonia Surgical History History of ankle surgery Britton reconstruction-right side History of carpal tunnel release History of mandibular surgery History of surgery mass removed from left side of clavicle Status post trigger finger release Family History Mother Cancer Hypertension Myasthenia gravis Son Environmental allergies Asthma Sister Gallbladder disease Father Alzheimer disease Other No family history of bleeding disorder Social History Smoking Status: Former smoker Tobacco Type: Cigarettes Second Hand Exposure: No; Hx Alcohol Use: No Hx Substance Use: No Preferred Language: Cymro Communication Ability: Effective Pulp Grinder Required: No Beliefs That Will Affect Care: Hinduism Hinduism Beliefs: Romelia marital status: Current Living Situation: Spouse current occupational status: retired Feels Safe at Home: Yes Safety Concerns: Feels Safe At This Time Assistive Devices: BiPap and Oxygen - Continuous Allergies Allergies Allergy/AdvReac Type Severity Reaction Status Date / Time bee venom protein (honey bee) Allergy Intermediate EXCESSIVE Verified 02/22/22 15:44 SWELLING AT SITE sulfamethoxazole Allergy Intermediate TONGUE Verified 02/22/22 15:44 SWELLS, WHITE BLISTERS IN MOUTH. trimethoprim Allergy Intermediate TONGUE Verified 02/22/22 15:44 SWELLS, WHITE BLISTERS IN MOUTH. adhesive Allergy Mild SKIN Verified 02/22/22 15:44 IRRITATION morphine AdvReac Intermediate PROJECTILE Verified 02/22/22 15:44 VOMITING Home Meds Home Medications Medication Instructions Recorded Confirmed cyclobenzaprine 10 mg tablet 10 mg PO HS 02/28/19 02/22/22 omeprazole 20 mg capsule,delayed 20 mg PO HS 02/28/19 02/22/22 release pramipexole 0.5 mg tablet 0.5 mg PO HS 02/28/19 02/22/22 venlafaxine 75 mg capsule,extended 300 mg PO HS 02/28/19 02/22/22 release 24 hr loratadine 10 mg tablet (Claritin) 10 mg PO DAILY PRN Congestion 03/13/19 02/22/22 ondansetron 4 mg disintegrating 4 mg PO Q8H PRN Nausea And Vomiting 04/10/19 02/22/22 tablet cholecalciferol (vitamin D3) 25 2,000 units PO HS 06/10/19 02/22/22 mcg (1,000 unit) capsule lisinopril 5 mg tablet 5 mg PO HS 08/02/19 02/22/22 alfuzosin 10 mg tablet,extended 10 mg PO HS 02/12/20 02/22/22 release 24 hr dicyclomine 10 mg capsule 10 mg PO BID PRN ABD PAIN 02/12/20 02/22/22 famotidine 20 mg tablet 20 mg PO HS 03/08/20 02/22/22 pravastatin 40 mg tablet 20 mg PO HS 11/04/21 02/22/22 ascorbic acid (vitamin C) 500 mg 250 mg PO HS 01/11/22 02/22/22 tablet ferrous sulfate 325 mg (65 mg 325 mg PO Q OTHER DAY 01/11/22 02/22/22 iron) tablet folic acid 1 mg tablet 1 mg PO HS 01/11/22 02/22/22 aspirin 81 mg tablet,delayed 81 mg PO HS 02/22/22 02/22/22 release (Alice Low Dose Aspirin) fentanyl 100 mcg/hr transdermal 100 mcg transdermal Q48H 02/22/22 02/22/22 patch finasteride 5 mg tablet 5 mg PO HS 02/22/22 02/22/22 testosterone 20.25 mg/1.25 gram 2 pump topical HS 02/22/22 02/22/22 (1.62 %) transdermal gel pump (AndroGel) Results & Data (ED) Vital Signs Vital Signs - 24 hr 02/22/22 12:16 02/22/22 12:40 02/22/22 12:40 Temperature 38.1 C H Temperature Source Temporal Artery Scan Pulse Rate 104 H 78 Pulse Rate [Apical] Pulse Rhythm Regular Respiratory Rate 24 19 Respiratory Effort / Characteristics Short of Breath Respiratory Depth Blood Pressure 128/66 Blood Pressure [Right Arm] Blood Pressure Mean 86 Blood Pressure Mean [Right Arm] Blood Pressure Position Sitting Pulse Oximetry 95 97 Oxygen Delivery Method Oxymask Oxymask Oxygen Flow Rate 6 6 6 Sepsis Recent Fever Within 48 Hours No Sepsis New/Unexplained Change in Mental Status Yes Sepsis Action Taken by Nursing Physician Notified 02/22/22 12:24 02/22/22 13:30 02/22/22 15:00 Temperature Temperature Source Pulse Rate Pulse Rate [Apical] 85 79 Pulse Rhythm Respiratory Rate 15 20 Respiratory Effort / Characteristics Non-Labored Spontaneous Spontaneous Respiratory Depth Normal Normal Blood Pressure Blood Pressure [Right Arm] 119/70 108/65 Blood Pressure Mean Blood Pressure Mean [Right Arm] 86 79 Blood Pressure Position Pulse Oximetry 95 95 Oxygen Delivery Method Oxymask Room Air Oxymask Oxygen Flow Rate 6 6 Sepsis Recent Fever Within 48 Hours Sepsis New/Unexplained Change in Mental Status Sepsis Action Taken by Custodial Medications Current Medication List: was personally reviewed by me Laboratory Data Attestation: I reviewed the patient's lab results. Result diagrams: 02/23/22 05:23 02/23/22 05:22 Lab Results 02/22/22 02/22/22 02/22/22 Range/Units 12:35 12:35 12:35 WBC 15.57 H (4.8-10.8) K/ul RBC 4.77 (4.63-6.08) M/uL Hgb 13.4 L (14.0-18.0) g/dl Hct 42.3 (40.1-51.0) % MCV 88.7 (80.0-100.0) fL MCH 28.1 (25.0-34.0) pg MCHC 31.7 L (32.0-36.0) g/dL RDW Std Deviation 57.8 H (36.4-46.3) fL RDW Coeff of Netta 17.8 H (11.5-14.5) % Plt Count 231 (130-400) K/uL MPV 10.3 (9.4-12.4) fL Immature Gran % (Auto) 0.4 % Neut % (Auto) 87.2 % Lymph % (Auto) 3.5 % Caldwell % (Auto) 8.5 % Eos % (Auto) 0.1 % Baso % (Auto) 0.3 % Neut # (Auto) 13.55 H (1.4-6.5) K/uL Lymph # (Auto) 0.55 L (1.2-3.4) K/uL Caldwell # (Auto) 1.33 H (0.24-0.82) K/uL Eos # (Auto) 0.02 (0-0.50) K/uL Baso # (Auto) 0.05 (0-0.2) K/uL Immature Gran # (Auto) 0.07 H (0.00-0.02) K/uL PT 11.6 (9.0-12.0) Seconds INR 1.1 (0.9-1.1) APTT 24.8 (21.0-31.0) Seconds PTT Ratio 0.9 VBG pH (7.36-7.41) VBG pCO2 (38-50) mmHg VBG pO2 mmHg VBG HCO3 mmol/L VBG O2 Saturation % VBG Base Excess mEq/L Sodium 134 L (136-145) mmol/L Potassium 4.3 (3.5-5.1) mmol/L Chloride 97 L (98-107) mmol/L Carbon Dioxide 33 H (21-32) mmol/L Anion Gap 4 (3-11) BUN 17 (6-23) mg/dl Creatinine 1.00 (0.6-1.4) mg/dl Est Cr Clr Drug Dosing Not Reportable Est GFR ( Amer) 88.0 ml/min Est GFR (Non-Af Amer) 75.9 ml/min BUN/Creatinine Ratio 17.0 (10-20) Glucose 157 H (70-99(Fasting)) mg/dl Lactate (0.4-2.0) mmol/L Calcium 9.0 (8.5-10.1) mg/dl Magnesium 1.6 L (1.7-2.4) mg/dl Total Bilirubin 0.7 (0.2-1.0) mg/dl AST 19 (13-39) U/L ALT 14 (7-52) U/L Alkaline Phosphatase 54 (34-104) U/L Troponin I High Sens 23.7 H D (0-20) pg/ml Total Protein 6.8 (6.0-8.3) gm/dl Albumin 3.8 (3.4-5.0) gm/dl Globulin 3.0 (2.5-4.0) gm/dl Albumin/Globulin Ratio 1.3 (0.9-2) Procalcitonin (0-0.5) ng/ml SARS-CoV-2 (PCR) (Negative) Influenza Type A (PCR) (Neg) Influenza Type B (PCR) (Neg) RSV (RT-PCR) (Neg) 02/22/22 02/22/22 02/22/22 Range/Units 12:35 12:35 13:07 WBC (4.8-10.8) K/ul RBC (4.63-6.08) M/uL Hgb (14.0-18.0) g/dl Hct (40.1-51.0) % MCV (80.0-100.0) fL MCH (25.0-34.0) pg MCHC (32.0-36.0) g/dL RDW Std Deviation (36.4-46.3) fL RDW Coeff of Netta (11.5-14.5) % Plt Count (130-400) K/uL MPV (9.4-12.4) fL Immature Gran % (Auto) % Neut % (Auto) % Lymph % (Auto) % Caldwell % (Auto) % Eos % (Auto) % Baso % (Auto) % Neut # (Auto) (1.4-6.5) K/uL Lymph # (Auto) (1.2-3.4) K/uL Caldwell # (Auto) (0.24-0.82) K/uL Eos # (Auto) (0-0.50) K/uL Baso # (Auto) (0-0.2) K/uL Immature Gran # (Auto) (0.00-0.02) K/uL PT (9.0-12.0) Seconds INR (0.9-1.1) APTT (21.0-31.0) Seconds PTT Ratio VBG pH 7.42 H (7.36-7.41) VBG pCO2 54 H (38-50) mmHg VBG pO2 48 mmHg VBG HCO3 35 mmol/L VBG O2 Saturation 81.5 % VBG Base Excess 8.7 mEq/L Sodium (136-145) mmol/L Potassium (3.5-5.1) mmol/L Chloride (98-107) mmol/L Carbon Dioxide (21-32) mmol/L Anion Gap (3-11) BUN (6-23) mg/dl Creatinine (0.6-1.4) mg/dl Est Cr Clr Drug Dosing Est GFR ( Amer) ml/min Est GFR (Non-Af Amer) ml/min BUN/Creatinine Ratio (10-20) Glucose (70-99(Fasting)) mg/dl Lactate 2.0 (0.4-2.0) mmol/L Calcium (8.5-10.1) mg/dl Magnesium (1.7-2.4) mg/dl Total Bilirubin (0.2-1.0) mg/dl AST (13-39) U/L ALT (7-52) U/L Alkaline Phosphatase (34-104) U/L Troponin I High Sens (0-20) pg/ml Total Protein (6.0-8.3) gm/dl Albumin (3.4-5.0) gm/dl Globulin (2.5-4.0) gm/dl Albumin/Globulin Ratio (0.9-2) Procalcitonin 0.06 (0-0.5) ng/ml SARS-CoV-2 (PCR) (Negative) Influenza Type A (PCR) (Neg) Influenza Type B (PCR) (Neg) RSV (RT-PCR) (Neg) 02/22/22 Range/Units 13:25 WBC (4.8-10.8) K/ul RBC (4.63-6.08) M/uL Hgb (14.0-18.0) g/dl Hct (40.1-51.0) % MCV (80.0-100.0) fL MCH (25.0-34.0) pg MCHC (32.0-36.0) g/dL RDW Std Deviation (36.4-46.3) fL RDW Coeff of Netta (11.5-14.5) % Plt Count (130-400) K/uL MPV (9.4-12.4) fL Immature Gran % (Auto) % Neut % (Auto) % Lymph % (Auto) % Caldwell % (Auto) % Eos % (Auto) % Baso % (Auto) % Neut # (Auto) (1.4-6.5) K/uL Lymph # (Auto) (1.2-3.4) K/uL Caldwell # (Auto) (0.24-0.82) K/uL Eos # (Auto) (0-0.50) K/uL Baso # (Auto) (0-0.2) K/uL Immature Gran # (Auto) (0.00-0.02) K/uL PT (9.0-12.0) Seconds INR (0.9-1.1) APTT (21.0-31.0) Seconds PTT Ratio VBG pH (7.36-7.41) VBG pCO2 (38-50) mmHg VBG pO2 mmHg VBG HCO3 mmol/L VBG O2 Saturation % VBG Base Excess mEq/L Sodium (136-145) mmol/L Potassium (3.5-5.1) mmol/L Chloride (98-107) mmol/L Carbon Dioxide (21-32) mmol/L Anion Gap (3-11) BUN (6-23) mg/dl Creatinine (0.6-1.4) mg/dl Est Cr Clr Drug Dosing Est GFR ( Amer) ml/min Est GFR (Non-Af Amer) ml/min BUN/Creatinine Ratio (10-20) Glucose (70-99(Fasting)) mg/dl Lactate (0.4-2.0) mmol/L Calcium (8.5-10.1) mg/dl Magnesium (1.7-2.4) mg/dl Total Bilirubin (0.2-1.0) mg/dl AST (13-39) U/L ALT (7-52) U/L Alkaline Phosphatase (34-104) U/L Troponin I High Sens (0-20) pg/ml Total Protein (6.0-8.3) gm/dl Albumin (3.4-5.0) gm/dl Globulin (2.5-4.0) gm/dl Albumin/Globulin Ratio (0.9-2) Procalcitonin (0-0.5) ng/ml SARS-CoV-2 (PCR) NEGATIVE (Negative) Influenza Type A (PCR) Negative (Neg) Influenza Type B (PCR) Negative (Neg) RSV (RT-PCR) Negative (Neg) Administered Medications Alfuzosin HCl (Alfuzosin Hcl 10 Mg Tab) 10 mg PO [facility] Stop: 03/24/22 20:59 Last Admin: 02/22/22 20:52 Dose: 10 mg Documented By: YAHAIRA Ascorbic Acid (Ascorbic Acid 500 Mg Tab) 250 mg PO HS [facility] Stop: 03/24/22 20:59 Last Admin: 02/22/22 20:51 Dose: 250 mg Documented By: YAHAIRA Aspirin (Aspirin 81 Mg Ectab) 81 mg PO HS [facility] Stop: 03/24/22 20:59 Last Admin: 02/22/22 20:52 Dose: 81 mg Documented By: YAHAIRA Cyclobenzaprine HCl (Cyclobenzaprine Hcl 10 Mg Tab) 10 mg PO HS [facility] Stop: 03/24/22 20:59 Last Admin: 02/22/22 20:51 Dose: 10 mg Documented By: YAHAIRA Enoxaparin Sodium (Enoxaparin Inj 40 Mg/0.4 Ml Syr) 40 mg SQ QPM [facility] Stop: 03/24/22 20:59 Last Admin: 02/22/22 20:56 Dose: 40 mg Documented By: YAHAIRA Famotidine (Famotidine 20 Mg Tab) 20 mg PO HS [facility] Stop: 03/24/22 20:59 Last Admin: 02/22/22 20:56 Dose: 20 mg Documented By: YAHAIRA Finasteride (Finasteride 5 Mg Tab) 5 mg PO HS [facility] Stop: 03/24/22 20:59 Last Admin: 02/22/22 20:50 Dose: 5 mg Documented By: YAHAIRA Folic Acid (Folic Acid 1 Mg Tab) 1 mg PO HS [facility] Stop: 03/24/22 20:59 Last Admin: 02/22/22 20:56 Dose: 1 mg Documented By: YAHAIRA Ampicillin Sodium/Sulbactam Sodium 3,000 mg/ Sodium Chloride 108 mls @ 200 mls/hr IV Q6H [facility]; Protocol Stop: 03/01/22 20:59 Last Infusion: 02/23/22 09:01 Dose: 0 mls/hr Documented By: Admin: 02/23/22 07:40 Dose: 200 mls/hr Documented By: Infusion: 02/23/22 03:29 Dose: 0 mls/hr Documented By: Admin: 02/23/22 02:56 Dose: 200 mls/hr Documented By: Infusion: 02/22/22 21:39 Dose: 0 mls/hr Documented By: Admin: 02/22/22 21:06 Dose: 200 mls/hr Documented By: YAHAIRA Miscellaneous (Check Fentanyl Patch Placement) 1 each N/A QS [facility] Stop: 03/25/22 00:00 Last Admin: 02/23/22 07:37 Dose: 1 each Documented By: Germaine Admin: 02/22/22 23:43 Dose: 1 each Documented By: YAHAIRA Caseaneous (Order Awaiting Action - Testosterone [Androgel] 20.25 Mg/1.25 Gram (1.62 %) Gel In Meter) 1 each N/A QS [facility] Stop: 03/25/22 00:00 Last Admin: 02/23/22 07:38 Dose: Not Given Documented By: Germaine Admin: 02/22/22 23:43 Dose: Not Given Documented By: YAHAIRA Pantoprazole Sodium (Pantoprazole 40 Mg Tab) 40 mg PO [facility] Stop: 03/24/22 20:59 Last Admin: 02/22/22 20:51 Dose: 40 mg Documented By: YAHAIRA Pramipexole Dihydrochloride (Pramipexole Dihydrochlo 0.5 Mg Tab) 0.5 mg PO [facility] Stop: 03/24/22 20:59 Last Admin: 02/22/22 20:51 Dose: 0.5 mg Documented By: YAHAIRA Pravastatin Sodium (Pravastatin Sod 20 Mg Tab) 20 mg PO [facility] Stop: 03/24/22 20:59 Last Admin: 02/22/22 20:50 Dose: 20 mg Documented By: YAHAIRA Venlafaxine HCl (Venlafaxine Hcl Xr 150 Mg Capxr) 300 mg PO [facility] Stop: 03/24/22 20:59 Last Admin: 02/22/22 20:51 Dose: 300 mg Documented By: YAHAIRA Vitamin D (Cholecalciferol 1,000 Units 25 Mcg Tab) 2,000 units PO [facility] Stop: 03/24/22 20:59 Last Admin: 02/22/22 20:50 Dose: 2,000 units Documented By: YAHAIRA Discontinued Medications Fentanyl (Fentanyl 100 Mcg/Hr Tdsy) 100 mcg TD Q48H [facility] Stop: 03/08/22 16:59 Last Admin: 02/22/22 18:01 Dose: Not Given Documented By: Germaine Magnesium Sulfate/Dextrose (Magnesium Sulfate / D5w) 1 gm in 100 mls @ 100 mls/hr IV NOW STA Stop: 02/22/22 14:58 Last Infusion: 02/22/22 15:13 Dose: 0 mls/hr Documented By: PEDRO(2) Admin: 02/22/22 14:13 Dose: 100 mls/hr Documented By: ANGELIA Piperacillin Sod/Tazobactam Sod (Zosyn) 4.5 gm in 120 mls @ 240 mls/hr IV NOW ONE Stop: 02/22/22 14:37 Last Infusion: 02/22/22 15:59 Dose: 0 mls/hr Documented By: PEDRO(2) Admin: 02/22/22 15:29 Dose: 240 mls/hr Documented By: ANGELIA Azithromycin 500 mg/ Dextrose 255 mls @ 127.5 mls/hr IV NOW STA Stop: 02/22/22 17:18 Last Infusion: 02/22/22 18:49 Dose: 0 mls/hr Documented By: Admin: 02/22/22 16:07 Dose: 127.5 mls/hr Documented By: ANGELIA Magnesium Sulfate/Dextrose (Magnesium Sulfate / D5w) 1 gm in 100 mls @ 50 mls/hr IV Q2H [facility] Stop: 02/22/22 18:59 Last Infusion: 02/22/22 20:49 Dose: 0 mls/hr Documented By: [facility] Admin: 02/22/22 18:49 Dose: 50 mls/hr Documented By: PEDRO Imaging Data Radiologist's Impression: Chest X-Ray 02/22/22 12:24 XR chest 2V PA/lateral CLINICAL HISTORY: Sepsis. COMPARISON STUDY: Chest CT January 23, 2019. Chest radiograph November 04, 2021. FINDINGS: Elevation of the right hemidiaphragm is unchanged. There is no pneumothorax or pleural effusion. Cardiomediastinal silhouette is stable. Multifocal airspace opacities within the right developed since prior exam. There is mild reticulonodular interstitial thickening within the left lung, similar to prior exam. IMPRESSION: Interval development of multifocal airspace opacities within the right lung which favor pneumonia. Radiographic follow-up to ensure resolution is recommended. ACT 112: Negative or not required by law. Electronically signed by: Teo Paulino M.D. 02/22/2022 1:[address] 02/22/22 12:56 CT OF THE CERVICAL SPINE WITHOUT CONTRAST CLINICAL HISTORY: Altered mental status. COMPARISON STUDY: CTA of the neck September 08, 2018. TECHNIQUE: Helical axial images of the cervical spine were obtained without IV contrast. Sagittal and coronal reconstructions were viewed. Automated exposure control was utilized for the study. A dose lowering technique was utilized adhering to the principles of ALARA. FINDINGS: Alignment of the cervical spine is anatomic. Vertebral body heights are maintained. No acute cervical spine fracture or subluxation is present. There is no prevertebral edema. Facet joints are intact. Moderate multilevel degenerative changes are present. Right apical airspace opacities are inc identally noted. There is interlobular septal thickening within the lung apices as well. IMPRESSION: 1. No acute cervical spine fracture or subluxation. 2. Interlobular septal thickening within the lung apices consistent with interstitial pulmonary edema. Right apical opacities could reflect alveolar edema or superimposed pneumonia. ACT 112: Negative or not required by law. Electronically signed by: Teo Paulino M.D. 02/22/2022 2:[address] 02/22/22 12:56 CT head/brain wo con CLINICAL HISTORY: 71 years-old Male with ams. Acutely altered mental status TECHNIQUE: Multiple axial CT images of the head were obtained without contrast. A dose lowering technique was utilized adhering to the principles of ALARA. COMPARISON: 11/04/2021 FINDINGS: No acute intracranial hemorrhage, midline shift, intracranial mass, hydrocephalus, territorial ischemia or abnormal extra-axial collection. Motion degraded exam. Portion of the study was then repeated. Involutional changes with white matter hypodensities suggestive of chronic microvascular ischemic disease. The calvarium is intact. The paranasal sinuses, mastoid air cells, and middle ear cavities are clear. IMPRESSION: No acute intracranial abnormality. ACT 112: Negative or not required by law. The above report was generated using voice recognition software. It may contain grammatical, syntax or spelling errors. Electronically signed by: Marco Stewart M.D. 02/22/2022 2:13 PM Discharge Plan Visit Data Chief Complaint: Illness Stated Complaint: NEAR SYNCOPE ED Provider: Reg Magallanes Discharge Problem: Pneumonia, Chronic respiratory failure, Acute alteration in mental status Patient Disposition: Admitted As Inpatient Discharge Instructions Interventions: ED Discharge Assessment Last Done: 02/22/22 16:31 : Pneumonia Qualifiers: Pneumonia type: due to unspecified organism Laterality: bilateral Lung location: unspecified part of lung Qualified Code(s): J18.9 - Pneumonia, unspecified organism Chronic respiratory failure Qualifiers: Respiratory failure complication: hypoxia Qualified Code(s): J96.11 - Chronic respiratory failure with hypoxia
[2022-02-22 13:33] LABS: Troponin I High Sensitivity 23.7 pg/ml (0-20)
[2022-02-22 13:34] LABS: Alanine Aminotransferase 14 U/L (7-52); Albumin Globulin Ratio 1.3 (0.9-2); Albumin Level 3.8 gm/dl (3.4-5.0); Alkaline Phosphatase 54 U/L (34-104); Anion Gap 4 (3-11); Aspartate Aminotransferase 19 U/L (13-39); Bilirubin,Total 0.7 mg/dl (0.2-1.0); Blood Urea Nitrogen 17 mg/dl (6-23); Carbon Dioxide 33 mmol/L (21-32); Chloride 97 mmol/L (98-107); Est GFR (Non-African American) 75.9 ml/min; Glucose 157 mg/dl (70-99(Fasting)); Magnesium 1.6 mg/dl (1.7-2.4); Potassium 4.3 mmol/L (3.5-5.1); Sodium 134 mmol/L (136-145); Total Protein 6.8 gm/dl (6.0-8.3)
[2022-02-22] MEDS ORDERED: MAGNESIUM SULFATE / D5W 1 GM/100 ML BAG IV STA (13:59)
[2022-02-22] MEDS ORDERED: PIPERACILLIN/TAZOBACTAM 4.5 GM/120 ML BAG IV ONE (14:08)
--- NOTE | 2022-02-22 14:13 | Electrocardiogram Report ---
Test Reason : Blood Pressure : / mmHG Vent. Rate : 108 BPM Atrial Rate : 108 BPM P-R Int : 188 ms QRS Dur : 096 ms QT Int : 338 ms P-R-T Axes : 044 -13 016 degrees QTc Int : 452 ms Poor data quality, interpretation may be adversely affected Sinus tachycardia Minimal voltage criteria for LVH, may be normal variant Borderline ECG When compared with ECG of 04-NOV-2021 15:21, No significant change was found Confirmed by Yann Obrien ([id number]) on 02/22/2022 2:13:16 PM Referred By: Confirmed By:Andrew Obrien
--- NOTE | 2022-02-22 14:14 | CT Scan Report ---
CT head/brain wo con CLINICAL HISTORY: 71 years-old Male with ams. Acutely altered mental status TECHNIQUE: Multiple axial CT images of the head were obtained without contrast. A dose lowering tech nique was utilized adhering to the principles of ALARA. COMPARISON: 11/04/2021 FINDINGS: No acute intracranial hemorrhage, midline shift, intracranial mass, hydrocephalus, territorial ischem ia or abnormal extra-axial collection. Motion degraded exam. Portion of the study was then repeated. Involutional changes with white matter hypodensities suggestive of chronic microvascular ischemic dis ease. The calvarium is intact. The paranasal sinuses, mastoid air cells, and middle ear cavities are clear . IMPRESSION: No acute intracranial abnormality. ACT 112: Negative or not required by law. The above report was generated using voice recognition software. It may contain grammatical, syntax o r spelling errors. Electronically signed by: Marco Stewart M.D. 02/22/2022 2:13 PM
--- NOTE | 2022-02-22 14:23 | CT Scan Report ---
CT OF THE CERVICAL SPINE WITHOUT CONTRAST CLINICAL HISTORY: Altered mental status. COMPARISON STUDY: CTA of the neck September 08, 2018. TECHNIQUE: Helical axial images of the cervical spine were obtained without IV contrast. Sagittal a nd coronal reconstructions were viewed. Automated exposure control was utilized for the study. A do se lowering technique was utilized adhering to the principles of ALARA. FINDINGS: Alignment of the cervical spine is anatomic. Vertebral body heights are maintained. No acut e cervical spine fracture or subluxation is present. There is no prevertebral edema. Facet joints are intact. Moderate multilevel degenerative changes are present. Right apical airspace opacities are i ncidentally noted. There is interlobular septal thickening within the lung apices as well. IMPRESSION: 1. No acute cervical spine fracture or subluxation. 2. Interlobular septal thickening within the lung apices consistent with interstitial pulmonary edema . Right apical opacities could reflect alveolar edema or superimposed pneumonia. ACT 112: Negative or not required by law. Electronically signed by: Teo Paulino M.D. 02/22/2022 2:21 PM
[2022-02-22 14:41] LABS: Influenza A virus by PCR Negative (Neg); Influenza B virus by PCR Negative (Neg); RSV by PCR Negative (Neg); SARS CoV2 RNA(COVID-19)Cepheid NEGATIVE (Negative)
[2022-02-22] MEDS ORDERED: AZITHROMYCIN 500 MG in DEXTROSE 5% 250 ML IV STA (15:19)
[2022-02-22] MEDS ORDERED: ACETAMINOPHEN 325 MG TAB PO PRN (16:40)
--- NOTE | 2022-02-22 16:47 | History & Physical Report ---
Date of Service February 22, 2022 Assessment & Plan (1) Aspiration pneumonitis: Plan: Suspect most likely aspiration pneumonitis in the setting of obstructive sleep apnea and led to his hypoxia and altered mental status Aspiration precautions Speech and language evaluation (2) Pneumonia: Plan: Possible diagnosis, difficult to rule out completely. Cover for aspiration pneumonia with Unasyn. Cover for atypical pneumonia with azithromycin. Incentive spirometer Flutter valve Sputum culture (3) Acute alteration in mental status: Plan: Suspect secondary to hypoxia (4) Acute and chronic respiratory failure with hypoxia: Plan: Aim O2 sats > 94% (5) RLS (restless legs syndrome): Plan: Continue pramipexole 0.5 mg p.o. at bedtime (6) GERD (gastroesophageal reflux disease): Plan: Continue pantoprazole 40 mg p.o. at bedtime and famotidine 20 mg p.o. at bedtime (7) Depression: Plan: Continue venlafaxine 300 mg p.o. at bedtime (8) Hypertension: Plan: Given current blood pressure will hold lisinopril (9) Hypogonadotropic hypogonadism in male: Plan: Continue AndroGel if patient is able to provide (10) BPH (benign prostatic hyperplasia): Plan: Continue alfuzosin 10 mg p.o. at bedtime and finasteride 5 mg p.o. at bedtime (11) Severe obstructive sleep apnea: Plan: CPAP HS and while napping Plan VTE prophylaxis - Lovenox 40 mg SQ daily Diet - heart healthy Disposition - admit to PCU Admission and Anticipated Discharge Date Admission Date: February 22, 2022 History of Present Illness Chief Complaint: Altered mental state, hypoxia Primary Care Provider: MATEO Alcazar Shanika is a 71 year old male who presents to the ER with altered mental state and hypoxia. He reports feeling his normal self yesterday. This morning the first thing he remembers is lots of people in his room saying his oxygen levels were low. History provided by his daughter. She reports his had knee surgery and she tried to get him up this morning but couldn't get him up. He appeared blue/purple and hypoxic therefore she called their daughter who is a nurse and ambulance. This has happened previously and he improves with oxygen on but it took a long time this morning. He eventually did come around though and refused to come in by ambulance but his daughter convinced him to come to the ER. Reportedly he has a history of aspirations. No recent speech and language assessment. Daughter is concerned he may have aspirated. He reports feeling mostly back to his normal self at this time. No fever, chills, shortness of breath, cough, nasal congestion, sinus pain. Allergies Allergy/AdvReac Type Severity Reaction Status Date / Time bee venom protein (honey bee) Allergy Intermediate EXCESSIVE Verified 02/22/22 15:44 SWELLING AT SITE sulfamethoxazole Allergy Intermediate TONGUE Verified 02/22/22 15:44 SWELLS, WHITE BLISTERS IN MOUTH. trimethoprim Allergy Intermediate TONGUE Verified 02/22/22 15:44 SWELLS, WHITE BLISTERS IN MOUTH. adhesive Allergy Mild SKIN Verified 02/22/22 15:44 IRRITATION morphine AdvReac Intermediate PROJECTILE Verified 02/22/22 15:44 VOMITING Home Medications Medication Instructions Recorded Confirmed Type cyclobenzaprine 10 mg tablet 10 mg PO HS 02/28/19 02/22/22 History omeprazole 20 mg capsule,delayed 20 mg PO HS 02/28/19 02/22/22 History release pramipexole 0.5 mg tablet 0.5 mg PO HS 02/28/19 02/22/22 History venlafaxine 75 mg capsule,extended 300 mg PO HS 02/28/19 02/22/22 History release 24 hr loratadine 10 mg tablet (Claritin) 10 mg PO DAILY PRN Congestion 03/13/19 02/22/22 History ondansetron 4 mg disintegrating 4 mg PO Q8H PRN Nausea And Vomiting 04/10/19 02/22/22 History tablet cholecalciferol (vitamin D3) 25 2,000 units PO HS 06/10/19 02/22/22 History mcg (1,000 unit) capsule lisinopril 5 mg tablet 5 mg PO HS 08/02/19 02/22/22 History alfuzosin 10 mg tablet,extended 10 mg PO HS 02/12/20 02/22/22 History release 24 hr dicyclomine 10 mg capsule 10 mg PO BID PRN ABD PAIN 02/12/20 02/22/22 History famotidine 20 mg tablet 20 mg PO HS 03/08/20 02/22/22 History pravastatin 40 mg tablet 20 mg PO HS 11/04/21 02/22/22 History ascorbic acid (vitamin C) 500 mg 250 mg PO HS 01/11/22 02/22/22 History tablet ferrous sulfate 325 mg (65 mg 325 mg PO Q OTHER DAY 01/11/22 02/22/22 History iron) tablet folic acid 1 mg tablet 1 mg PO HS 01/11/22 02/22/22 History aspirin 81 mg tablet,delayed 81 mg PO HS 02/22/22 02/22/22 History release (Alice Low Dose Aspirin) fentanyl 100 mcg/hr transdermal 100 mcg transdermal Q48H 02/22/22 02/22/22 History patch finasteride 5 mg tablet 5 mg PO HS 02/22/22 02/22/22 History testosterone 20.25 mg/1.25 gram 2 pump topical HS 02/22/22 02/22/22 History (1.62 %) transdermal gel pump (AndroGel) Past Med/Surg History Medical History Acute on chronic respiratory failure with hypoxemia Atypical chest pain BPH (benign prostatic hyperplasia) Chronic back pain Depression GERD (gastroesophageal reflux disease) History of acute renal failure Hypertension Hypogonadotropic hypogonadism in male Hypoxia Leukocytosis Metabolic encephalopathy Non-ST elevation AK (NSTEMI) Prostatitis Recurrent pneumonia Surgical History History of ankle surgery [place] reconstruction-right side History of carpal tunnel release History of mandibular surgery History of surgery mass removed from left side of clavicle Status post trigger finger release Family History Mother Cancer Hypertension Myasthenia gravis Son Environmental allergies Asthma Sister Gallbladder disease Father Alzheimer disease Other No family history of bleeding disorder Social History Smoking Status: Former smoker Tobacco Type: Cigarettes Second Hand Exposure: No; Hx Alcohol Use: No Hx Substance Use: No Preferred Language: [place] Communication Ability: Effective Privacy Attorney Required: No Beliefs That Will Affect Care: Adventism Adventism Beliefs: Romelia marital status: Current Living Situation: Spouse current occupational status: retired Feels Safe at Home: Yes Safety Concerns: Feels Safe At This Time Assistive Devices: BiPap and Oxygen - Continuous Review of Systems Review of Systems: All systems reviewed & are unremarkable except as noted in HPI & below Physical Exam Constitutional: WD/WN, vitals as above Respiratory: + labored breathing and + uses accessory muscles Auscultation: lungs clear to auscultation bilaterally Cardiovascular: RRR, no murmur, no edema Gastrointestinal (Abdomen): normal bowel sounds, soft, nontender, no hepatosplenomegaly Musculoskeletal: no cyanosis or clubbing, extremities motor strength 5/5 Skin: no rashes, warm and dry Neurologic: moves all extremities and awake; not confused Psychiatric: A+Ox3, euthymic affect Genitourinary: no CVA tenderness Results & Data Results & Data ([facility]) Vital Signs (Past 12 Hours) Vital Signs Temp Pulse Pulse Resp BP BP Pulse Ox 02/22/22 15:00 79 20 108/65 95 02/22/22 13:30 85 15 119/70 95 02/22/22 12:24 02/22/22 12:40 78 19 97 02/22/22 12:40 02/22/22 12:16 38.1 C H 104 H 24 128/66 95 O2 Del Method O2 Flow Rate 02/22/22 15:00 Oxymask 6 02/22/22 13:30 Room Air 02/22/22 12:24 Oxymask 6 02/22/22 12:40 Oxymask 6 02/22/22 12:40 Oxymask 6 02/22/22 12:16 6 Laboratory Results Abnormal lab results 02/22/22 02/22/22 02/22/22 Range/Units 12:35 12:35 13:07 WBC 15.57 H (4.8-10.8) K/ul Hgb 13.4 L (14.0-18.0) g/dl MCHC 31.7 L (32.0-36.0) g/dL RDW Std Deviation 57.8 H (36.4-46.3) fL RDW Coeff of Netta 17.8 H (11.5-14.5) % Neut # (Auto) 13.55 H (1.4-6.5) K/uL Lymph # (Auto) 0.55 L (1.2-3.4) K/uL [place] # (Auto) 1.33 H (0.24-0.82) K/uL Immature Gran # (Auto) 0.07 H (0.00-0.02) K/uL VBG pH 7.42 H (7.36-7.41) VBG pCO2 54 H (38-50) mmHg Sodium 134 L (136-145) mmol/L Chloride 97 L (98-107) mmol/L Carbon Dioxide 33 H (21-32) mmol/L Glucose 157 H (70-99(Fasting)) mg/dl Magnesium 1.6 L (1.7-2.4) mg/dl Troponin I High Sens 23.7 H D (0-20) pg/ml Diagnostic Findings CT head/brain wo con CLINICAL HISTORY: 71 years-old Male with ams. Acutely altered mental status TECHNIQUE: Multiple axial CT images of the head were obtained without contrast. A dose lowering technique was utilized adhering to the principles of ALARA. COMPARISON: 11/04/2021 FINDINGS: No acute intracranial hemorrhage, midline shift, intracranial mass, hydrocephalus, territorial ischemia or abnormal extra-axial collection. Motion degraded exam. Portion of the study was then repeated. Involutional changes with white matter hypodensities suggestive of chronic microvascular ischemic disease. The calvarium is intact. The paranasal sinuses, mastoid air cells, and middle ear cavities are clear. IMPRESSION: No acute intracranial abnormality. CT OF THE CERVICAL SPINE WITHOUT CONTRAST CLINICAL HISTORY: Altered mental status. COMPARISON STUDY: CTA of the neck September 08, 2018. TECHNIQUE: Helical axial images of the cervical spine were obtained without IV contrast. Sagittal and coronal reconstructions were viewed. Automated exposure control was utilized for the study. A dose lowering technique was utilized adhering to the principles of ALARA. FINDINGS: Alignment of the cervical spine is anatomic. Vertebral body heights are maintained. No acute cervical spine fracture or subluxation is present. There is no prevertebral edema. Facet joints are intact. Moderate multilevel degenerative changes are present. Right apical airspace opacities are incidentally noted. There is interlobular septal thickening within the lung apices as well. IMPRESSION: 1. No acute cervical spine fracture or subluxation. 2. Interlobular septal thickening within the lung apices consistent with interstitial pulmonary edema. Right apical opacities could reflect alveolar edema or superimposed pneumonia. XR chest 2V PA/lateral CLINICAL HISTORY: Sepsis. COMPARISON STUDY: Chest CT January 23, 2019. Chest radiograph November 04, 2021. FINDINGS: Elevation of the right hemidiaphragm is unchanged. There is no pneumothorax or pleural effusion. Cardiomediastinal silhouette is stable. Multifocal airspace opacities within the right developed since prior exam. There is mild reticulonodular interstitial thickening within the left lung, similar to prior exam. IMPRESSION: Interval development of multifocal airspace opacities within the right lung which favor pneumonia. Radiographic follow-up to ensure resolution is recommended. Medications Administered ER medications given: Zosyn 4.5 g Magnesium sulfate 1 g IV ECG Indication: SOB/dyspnea Rate (beats per minute): 108 Rhythm: sinus tachycardia Findings: no acute ischemic change Comparison ECG Date: from (November 04, 2021) Change: no significant change Code Status & VTE Plan Code Status Full VTE Prophylaxis Plan VTE Prophylaxis will be ordered: Yes PG Care Time/CCT Total # of Minutes Spent Total Time Spent with Patient: Total time spent is greater than 50% in coordination of care (as documented) at patient's floor/unit and/or counseling patient: Coding Level of Care Code 07886 Initial Inpt Care Lvl 3 Diagnoses Aspiration pneumonitis J69.0 Pneumonia J18.9 Laterality: bilateral Lung location: unspecified part of lung Pneumonia type: due to unspecified organism Acute alteration in mental status R41.82 Acute and chronic respiratory failure with hypoxia J96.21 RLS (restless legs syndrome) G25.81 GERD (gastroesophageal reflux disease) K21.9 Depression F32.9 Hypertension I10 Hypertension type: essential hypertension Hypogonadotropic hypogonadism in male E23.0 BPH (benign prostatic hyperplasia) N40.0 Severe obstructive sleep apnea G47.33 (1) Hypertension Hypertension type: essential hypertension Qualified Code(s): I10 - Essential (primary) hypertension (2) Pneumonia Laterality: bilateral Lung location: unspecified part of lung Pneumonia type: due to unspecified organism Qualified Code(s): J18.9 - Pneumonia, unspecified organism
[2022-02-22] MEDS ORDERED: ONDANSETRON 4 MG OD TAB PO PRN (16:49)
[2022-02-22] MEDS ORDERED: DICYCLOMINE HCL 10 MG CAP PO PRN (16:49)
[2022-02-22] MEDS ORDERED: LORATADINE 10 MG TAB PO PRN (16:49)
[2022-02-22] MEDS ORDERED: MAGNESIUM SULFATE / D5W 1 GM/100 ML BAG IV SCH (17:00)
[2022-02-22] MEDS ORDERED: fentaNYL 100 MCG/HR TDSY TD SCH (17:00)
[2022-02-22 18:09] LABS: Appearance Urine Clear (Clear); Bilirubin Urine Negative (Negative); Blood Urine Negative (Negative); Color Urine Yellow; Glucose Urine UA Negative (Negative); Ketones Urine Negative (Negative); Leukocyte Esterase Urine Negative (Negative); Nitrite Urine Negative (Negative); Protein Urine Negative (Negative); Urobilinogen Urine Negative (Negative)
[2022-02-22 18:48] LABS: Amphetamines+Metham, Urine Neg (Neg); Barbiturates, Urine Neg (Neg); Benzodiazepine, Urine Neg (Neg); Cocaine, Urine Neg (Neg); MDMA (Ecstacy), Urine Neg (Neg); Methadone, Urine Neg (Neg); Opiate, Urine Neg (Neg); Phencyclidine, Urine Neg (Neg)
[2022-02-22] MEDS: FINASTERIDE 5 MG TAB PO SCH (20:50)
[2022-02-22] MEDS: PRAVASTATIN SOD 20 MG TAB PO SCH (20:50)
[2022-02-22] MEDS: CHOLECALCIFEROL 1,000 UNITS 25 MCG TAB PO SCH (20:50)
[2022-02-22] MEDS: CYCLOBENZAPRINE HCL 10 MG TAB PO SCH (20:51)
[2022-02-22] MEDS: PRAMIPEXOLE DIHYDROCHLO 0.5 MG TAB PO SCH (20:51)
[2022-02-22] MEDS: ASCORBIC ACID 500 MG TAB PO SCH (20:51)
[2022-02-22] MEDS: VENLAFAXINE HCL XR 150 MG CAPXR PO SCH (20:51)
[2022-02-22] MEDS: PANTOprazole 40 MG TAB PO SCH (20:51)
[2022-02-22] MEDS: ALFUZOSIN HCL 10 MG TAB PO SCH (20:52)
[2022-02-22] MEDS: ASPIRIN 81 MG ECTAB PO SCH (20:52)
[2022-02-22] MEDS: FOLIC ACID 1 MG TAB PO SCH (20:56)
[2022-02-22] MEDS: ENOXAPARIN INJ 40 MG/0.4 ML SYR SQ SCH (20:56)
[2022-02-22] MEDS: FAMOTIDINE 20 MG TAB PO SCH (20:56)
[2022-02-22] MEDS: AMPICILLIN/SULBACTAM SOD 3,000 MG in 0.9 % SODIUM CHLORIDE 100 ML IV SCH (21:06)
[2022-02-22] MEDS: CHECK fentaNYL PATCH PLACEMENT SCH (23:43)
[2022-02-23] MEDS: AMPICILLIN/SULBACTAM SOD 3,000 MG in 0.9 % SODIUM CHLORIDE 100 ML IV SCH ×4 (02:56→19:28)
[2022-02-23 06:19] LABS: Basophils # (auto) 0.05 K/uL (0-0.2); Basophils % (auto) 0.4 %; Eosinophils # (auto) 0.31 K/uL (0-0.50); Eosinophils % (auto) 2.2 %; Hematocrit (blood only) 40.4 % (40.1-51.0); Hemoglobin 12.7 g/dl (14.0-18.0); Immature Granulocytes # (auto) 0.09 K/uL (0.00-0.02); Immature Granulocytes % (auto) 0.6 %; Lymphocytes # (auto) 1.69 K/uL (1.2-3.4); Lymphocytes % (auto) 12.2 %; Mean Corpuscular Hemoglobin 28.2 pg (25.0-34.0); Mean Corpuscular Hgb Conc 31.4 g/dL (32.0-36.0); Mean Corpuscular Volume 89.8 fL (80.0-100.0); Mean Platelet Volume 9.8 fL (9.4-12.4); Monocytes # (auto) 1.43 K/uL (0.24-0.82); Monocytes % (auto) 10.3 %; Neutrophils # (auto) 10.32 K/uL (1.4-6.5); Neutrophils % (auto) 74.3 %; Platelet Count 219 K/uL (130-400); RDW Coefficient of Variation 17.9 % (11.5-14.5); RDW Standard Deviation 59.7 fL (36.4-46.3); White Blood Count 13.89 K/ul (4.8-10.8)
[2022-02-23 06:38] LABS: BUN Creatinine Ratio 17.5 (10-20); Calcium 8.7 mg/dl (8.5-10.1); Creatinine Clr Calc Pharmacy 79.5 ml/min; Est GFR (African American) 91.3 ml/min; Est GFR (Non-African American) 78.8 ml/min; Potassium 4.2 mmol/L (3.5-5.1)
[2022-02-23 07:02] LABS: Albumin Globulin Ratio 1.2 (0.9-2); Albumin Level 3.6 gm/dl (3.4-5.0); Bilirubin,Total 0.8 mg/dl (0.2-1.0); Globulin 2.9 gm/dl (2.5-4.0); Magnesium 2.3 mg/dl (1.7-2.4); Total Protein 6.5 gm/dl (6.0-8.3)
--- NOTE | 2022-02-23 07:21 | Hospitalist Progress Note ---
Date of Service February 23, 2022 Assessment & Plan (1) Aspiration pneumonitis: (2) Pneumonia: (3) Acute alteration in mental status: (4) Acute and chronic respiratory failure with hypoxia: (5) RLS (restless legs syndrome): (6) GERD (gastroesophageal reflux disease): (7) Depression: (8) Hypertension: (9) Hypogonadotropic hypogonadism in male: (10) BPH (benign prostatic hyperplasia): (11) Severe obstructive sleep apnea: Plan Basim is a 71 year old male with history of CHITRA/CPAP use, GERD< HTN, and prior NSTEMI who presented 02/22 for AMS and hypoxia for 1 day (was at baseline 02/21). Patient has a history of recurrent aspiration pneumonias. Baseline oxygen requirement: 3L NC. Pneumonia/Hypoxia (etiology considered 2/2 aspiration): - Evidenced on CXR - 02/22 Cover for aspiration pneumonia with Unasyn and cover for atypical pneumonia with azithromycin. - Incentive spirometer provided - Sputum culture pending --- 02/23 Repeat CXR in AM --- 02/23 Continue Unasyn and Azithromycin, plan Augmentin PO when transitioning to outpatient (if sensitive) --- 02/23 O2 94 % on 4L NC --- 02/23 Speech therapy recommending camera swallow study, scheduled for tomorrow Severe obstructive sleep apnea: - CPAP HS and while napping --- 02/23 Hypercapnia likely 2/2 non-compliance with CPAP therapy at home --- Continue CPAP use inpatient, home baseline O2 is 3L NC, currently 95% on 4L --- Will follow RLS (restless legs syndrome): - Continue pramipexole 0.5 mg p.o. at bedtime GERD (gastroesophageal reflux disease): - Continue pantoprazole 40 mg p.o. at bedtime and famotidine 20 mg p.o. at bedtime --- Maximize PPI regimen if aspiration considered 2/2 GERD Depression: - Continue venlafaxine 300 mg p.o. at bedtime Hypertension: - Home Lisinopril held on admission Hypogonadotropic hypogonadism in male: - Continue AndroGel if patient is able to provide BPH (benign prostatic hyperplasia): - Continue alfuzosin 10 mg p.o. at bedtime and finasteride 5 mg p.o. at bedtime DVT Prophylaxis - Lovenox 40 mg SQ daily Diet - 02/23 Speech initiated heart healthy diet order Disposition - admit to PCU Admission and Anticipated Discharge Date Admission Date: February 22, 2022 Supervising Physician Co-Signing Physician Notes I also saw the patient and confirmed patiño portion of the history and physical examination. Agree with impression plan as noted the resident documentation. Upon exam midmorning, the patient states that he feels better. Less shortness of breath. He is on home oxygen, although he is requiring higher flow rate here as compared to home. Patient also has history of CHITRA although he is noncompliant with his CPAP at home. Exam 119/72, 64, 19, 36.6, 95% on nasal cannula at 4 L/min Heart regular rate and rhythm Lungs slight decreased in the bases, no wheezing appreciated Data WBC 13.9, hemoglobin 12.7, platelet count 219 Sodium 136, potassium 4.2, chloride 98, CO2 36, BUN 17, creatinine 0.97 Imaging Chest x-ray dated 02/22/2022 shows interval development of a focal airspace opacity within the right lung which favor pneumonia. CT scan of the spine shows no acute cervical spine fracture or subluxation. Head CT showed no acute intracranial abnormality Micro Blood cultures drawn 02/22/2022 showed no growth at 24 hours Impression and plan Pneumonia History of aspiration Clinically improved this morning Continue current antibiotics Camera swallowing study tomorrow Repeat chest x-ray in a.m. Additional per resident documentation Damaris Stallworth is a 71 year old male with history of CHITRA/CPAP use, GERD< HTN, and prior NSTEMI who presented 02/22 for AMS and hypoxia for 1 day (was at baseline 02/21). Patient has a history of recurrent aspiration pneumonias. Baseline oxygen requirement: 3L NC. 02/23: Patient states that he is feeling much improved from presentation. He is breathing well and feels like he is at his baseline. He notes that he uses 3 L of oxygen at home all the time. He is currently not dyspneic or having pleuritic pain. Patient notes that he has CHITRA and is on CPAP, but has not been using it for the last 3+ months as it has been broken. His recently had knee surgery and he notes his attention has been wrapped up in that. Otherwise. patient states that he is not having any chest pain, abdominal discomfort, reflux, or bowel/bladder changes. Patient relayed that 10 years ago he was in an accident where a large bail of hay fell on him and ultimately crushed his chest, leaving him with damage to the diaphragm. Since he injured his diaphragm he has been having recurrent pneumonias, last was years ago (2019), but at this time he was told it was aspiration pneumonia. Review of Systems Review of Systems: As per HPI Physical Exam Physical Exam: Gen: NAD, alert, interactive HEENT: Supple, no LAD, no thyromegaly, no JVD Resp:Increased respiratory effort, diminished lung sounds on right lung base, trace crackles in right lung base, no wheezing, congestion appreciated in left lung throughout CV:RRR, normal S1/S2, no M/R/G Abd: Soft, non-distended, no TTP, normoactive bowels, no masses Extr: 2+ dp bilaterally, no edema Skin: No rashes lesions or erythema Results & Data Results & Data ([facility]) Vital Signs (Past 12 Hours) Vital Signs Temp Pulse Pulse Resp BP Pulse Ox O2 Del Method 02/23/22 07:16 36.6 C 76 20 132/73 94 Nasal Cannula 02/23/22 02:54 36.8 C 70 20 116/70 91 CPAP 02/22/22 23:45 73 02/22/22 23:21 36.6 C 68 20 111/46 L 92 CPAP 02/22/22 22:31 74 20 95 02/22/22 20:00 Nasal Cannula O2 Flow Rate 02/23/22 07:16 4 02/23/22 02:54 4 02/22/22 23:45 02/22/22 23:21 4 11/02/22 22:31 3 02/22/22 20:00 4 Diagnostic Findings Laboratory Results WBC 13.89 K/ul (4.8-10.8) H 02/23/22 05:23 RBC 4.50 M/uL (4.63-6.08) L 02/23/22 05:23 Hgb 12.7 g/dl (14.0-18.0) L 02/23/22 05:23 Hct 40.4 % (40.1-51.0) 02/23/22 05:23 MCV 89.8 fL (80.0-100.0) 02/23/22 05:23 MCH 28.2 pg (25.0-34.0) 02/23/22 05:23 MCHC 31.4 g/dL (32.0-36.0) L 02/23/22 05:23 RDW Std Deviation 59.7 fL (36.4-46.3) H 02/23/22 05:23 RDW Coeff of Netta 17.9 % (11.5-14.5) H 02/23/22 05:23 Plt Count 219 K/uL (130-400) 02/23/22 05:23 MPV 9.8 fL (9.4-12.4) 02/23/22 05:23 Immature Gran % (Auto) 0.6 % 02/23/22 05:23 Neut % (Auto) 74.3 % 02/23/22 05:23 Lymph % (Auto) 12.2 % 02/23/22 05:23 [place] % (Auto) 10.3 % 02/23/22 05:23 Eos % (Auto) 2.2 % 02/23/22 05:23 Baso % (Auto) 0.4 % 02/23/22 05:23 Neut # (Auto) 10.32 K/uL (1.4-6.5) H 02/23/22 05:23 Lymph # (Auto) 1.69 K/uL (1.2-3.4) 02/23/22 05:23 [place] # (Auto) 1.43 K/uL (0.24-0.82) H 02/23/22 05:23 Eos # (Auto) 0.31 K/uL (0-0.50) 02/23/22 05:23 Baso # (Auto) 0.05 K/uL (0-0.2) 02/23/22 05:23 Immature Gran # (Auto) 0.09 K/uL (0.00-0.02) H 02/23/22 05:23 PT 11.6 Seconds (9.0-12.0) 02/22/22 12:35 INR 1.1 (0.9-1.1) 02/22/22 12:35 APTT 24.8 Seconds (21.0-31.0) 02/22/22 12:35 PTT Ratio 0.9 02/22/22 12:35 VBG pH 7.42 (7.36-7.41) H 02/22/22 13:07 VBG pCO2 54 mmHg (38-50) H 02/22/22 13:07 VBG pO2 48 mmHg 02/22/22 13:07 VBG HCO3 35 mmol/L 02/22/22 13:07 VBG O2 Saturation 81.5 % 02/22/22 13:07 VBG Base Excess 8.7 mEq/L 02/22/22 13:07 Sodium 136 mmol/L (136-145) 02/23/22 05:22 Potassium 4.2 mmol/L (3.5-5.1) 02/23/22 05:22 Chloride 98 mmol/L (98-107) 02/23/22 05:22 Carbon Dioxide 36 mmol/L (21-32) H 02/23/22 05:22 Anion Gap 2 (3-11) L 02/23/22 05:22 BUN 17 mg/dl (6-23) 02/23/22 05:22 Creatinine 0.97 mg/dl (0.6-1.4) 02/23/22 05:22 Est Cr Clr Drug Dosing 79.5 ml/min 02/23/22 05:22 Est GFR ( Amer) 91.3 ml/min 02/23/22 05:22 Est GFR (Non-Af Amer) 78.8 ml/min 02/23/22 05:22 BUN/Creatinine Ratio 17.5 (10-20) 02/23/22 05:22 Glucose 89 mg/dl (70-99(Fasting)) 02/23/22 05:22 Lactate 2.0 mmol/L (0.4-2.0) 02/22/22 12:35 Calcium 8.7 mg/dl (8.5-10.1) 02/23/22 05:22 Magnesium 2.3 mg/dl (1.7-2.4) 02/23/22 05:22 Total Bilirubin 0.8 mg/dl (0.2-1.0) 02/23/22 05:22 AST 17 U/L (13-39) 02/23/22 05:22 ALT 12 U/L (7-52) 02/23/22 05:22 Alkaline Phosphatase 48 U/L (34-104) 02/23/22 05:22 Troponin I High Sens 18.9 pg/ml (0-20) D 02/22/22 18:22 Total Protein 6.5 gm/dl (6.0-8.3) 02/23/22 05:22 Albumin 3.6 gm/dl (3.4-5.0) 02/23/22 05:22 Globulin 2.9 gm/dl (2.5-4.0) 02/23/22 05:22 Albumin/Globulin Ratio 1.2 (0.9-2) 02/23/22 05:22 Procalcitonin 0.06 ng/ml (0-0.5) 02/22/22 12:35 Urine Color Yellow 02/22/22 17:55 Urine Appearance Clear (Clear) 02/22/22 17:55 Urine pH 7.0 (4.5-7.5) 02/22/22 17:55 Ur Specific [place] 1.020 (1.000-1.030) 02/22/22 17:55 Urine Protein Negative (Negative) 02/22/22 17:55 Urine Glucose (UA) Negative (Negative) 02/22/22 17:55 Urine Ketones Negative (Negative) 02/22/22 17:55 Urine Blood Negative (Negative) 02/22/22 17:55 Urine Nitrite Negative (Negative) 02/22/22 17:55 Urine Bilirubin Negative (Negative) 02/22/22 17:55 Urine Urobilinogen Negative (Negative) 02/22/22 17:55 Ur Leukocyte Esterase Negative (Negative) 02/22/22 17:55 Urine Opiates Screen Neg (Neg) 02/22/22 17:55 Ur Methadone, Qual Neg (Neg) 02/22/22 17:55 Urine Barbiturates Neg (Neg) 02/22/22 17:55 Ur Phencyclidine (PCP) Neg (Neg) 02/22/22 17:55 U Amphetamin/Meth Scrn Neg (Neg) 02/22/22 17:55 MDMA (Ecstasy) Screen Neg (Neg) 02/22/22 17:55 U Benzodiazepines Scrn Neg (Neg) 02/22/22 17:55 Ur Cocaine Metabolite Neg (Neg) 02/22/22 17:55 U Marijuana (THC) Screen Neg (Neg) 02/22/22 17:55 SARS-CoV-2 (PCR) NEGATIVE (Negative) 02/22/22 13:25 Influenza Type A (PCR) Negative (Neg) 02/22/22 13:25 Influenza Type B (PCR) Negative (Neg) 02/22/22 13:25 RSV (RT-PCR) Negative (Neg) 02/22/22 13:25 Impressions Chest X-Ray 02/22/22 12:24 IMPRESSION: Interval development of multifocal airspace opacities within the right lung which favor pneumonia. Radiographic follow-up to ensure resolution is recommended. Cervical Spine CT 02/22/22 12:56 IMPRESSION: 1. No acute cervical spine fracture or subluxation. 2. Interlobular septal thickening within the lung apices consistent with interstitial pulmonary edema. Right apical opacities could reflect alveolar edema or superimposed pneumonia. Head CT 02/22/22 12:56 IMPRESSION: No acute intracranial abnormality. Resident Activity Tracking Resident Involvement: Resident Care Provided Care Provided: Adult Hospital Medicine (1) Hypertension Hypertension type: essential hypertension Qualified Code(s): I10 - Essential (primary) hypertension (2) Pneumonia Laterality: bilateral Lung location: unspecified part of lung Pneumonia type: due to unspecified organism Qualified Code(s): J18.9 - Pneumonia, unspecified organism
[2022-02-23] MEDS: CHECK fentaNYL PATCH PLACEMENT SCH ×3 (07:37→23:07)
[2022-02-23] MEDS: AZITHROMYCIN 500 MG in DEXTROSE 5% 250 ML IV SCH (16:13)
[2022-02-23] MEDS: ALFUZOSIN HCL 10 MG TAB PO SCH (19:28)
[2022-02-23] MEDS: ASCORBIC ACID 500 MG TAB PO SCH (19:29)
[2022-02-23] MEDS: CHOLECALCIFEROL 1,000 UNITS 25 MCG TAB PO SCH (19:30)
[2022-02-23] MEDS: ASPIRIN 81 MG ECTAB PO SCH (19:30)
[2022-02-23] MEDS: ENOXAPARIN INJ 40 MG/0.4 ML SYR SQ SCH (19:31)
[2022-02-23] MEDS: CYCLOBENZAPRINE HCL 10 MG TAB PO SCH (19:31)
[2022-02-23] MEDS: FINASTERIDE 5 MG TAB PO SCH (19:32)
[2022-02-23] MEDS: FAMOTIDINE 20 MG TAB PO SCH (19:32)
[2022-02-23] MEDS: FOLIC ACID 1 MG TAB PO SCH (19:33)
[2022-02-23] MEDS: PANTOprazole 40 MG TAB PO SCH (19:33)
[2022-02-23] MEDS: PRAMIPEXOLE DIHYDROCHLO 0.5 MG TAB PO SCH (19:33)
[2022-02-23] MEDS: VENLAFAXINE HCL XR 150 MG CAPXR PO SCH (19:34)
[2022-02-23] MEDS: PRAVASTATIN SOD 20 MG TAB PO SCH (19:34)
[2022-02-24] MEDS: AMPICILLIN/SULBACTAM SOD 3,000 MG in 0.9 % SODIUM CHLORIDE 100 ML IV SCH ×4 (02:18→20:08)
--- NOTE | 2022-02-24 08:20 | Hospitalist Progress Note ---
Date of Service February 24, 2022 Assessment & Plan (1) Aspiration pneumonitis: (2) Pneumonia: (3) Acute alteration in mental status: (4) Acute and chronic respiratory failure with hypoxia: (5) RLS (restless legs syndrome): (6) GERD (gastroesophageal reflux disease): (7) Depression: (8) Hypertension: (9) Hypogonadotropic hypogonadism in male: (10) BPH (benign prostatic hyperplasia): (11) Severe obstructive sleep apnea: Plan Basim is a 71 year old male with history of CHITRA/CPAP use, GERD, HTN, and prior NSTEMI who presented 02/22 for AMS and hypoxia for 1 day (was at baseline 02/21). Patient has a history of aspiration pneumonia. Baseline oxygen requirement: 3L NC. Pneumonia/Hypoxia - 02/22 Pneumonia evidenced on CXR - 02/22 Cover for aspiration pneumonia with Unasyn and cover for atypical pneumonia with azithromycin. - Concern for aspiration pneumonia d/t hx of aspiration pneumonia and esophageal dysfunction - Incentive spirometer provided - Sputum culture: Not obtained - Speech consulted - 02/23 Repeat CXR in AM, Continue Unasyn and Azithromycin, plan Augmentin PO when transitioning to outpatient --- 02/24: Blood culture (x2)- No growth at 48 hours --- 02/24: CXR showing patchy right lung airspace opacities have improved --- 02/24: SpO2 93 % on 4L NC (baseline 3 L NC) --- 02/24 Video Swallow: Mild esophageal dysphagia, no aspiration evidenced. Rec diet easy to chew, head of bed elevation to 30 degrees, and alternating liquids/solids. Severe obstructive sleep apnea: - CPAP HS and while napping - 02/23 Hypercapnia likely 2/2 non-compliance with CPAP therapy at home - [facility], states his is currently [facility] and needs repaired --- Continue CPAP use inpatient, home baseline O2 is 3L NC, currently 93% on 4L (@ 0900) --- Overnight pulse oximetry showed 37 desaturations, lowest SpO2 77%, time spent < 89% 2 hours --- Discussed with patient the importance of returning to CPAP use RLS (restless legs syndrome): - Continue pramipexole 0.5 mg p.o. at bedtime GERD (gastroesophageal reflux disease): - Continue Pantoprazole 40 mg p.o. at bedtime and Famotidine 20 mg p.o. at bedtime Depression: - Continue venlafaxine 300 mg p.o. at bedtime Hypertension: - Home Lisinopril held on admission BPH (benign prostatic hyperplasia): - Continue alfuzosin 10 mg p.o. at bedtime and finasteride 5 mg p.o. at bedtime DVT Prophylaxis - Lovenox 40 mg SQ daily Diet - Heart Healthy, optional minced/moist Disposition - Anticipate discharge tomorrow Admission and Anticipated Discharge Date Admission Date: February 22, 2022 Supervising Physician Co-Signing Physician Notes Patient seen and examined with PGY-1 Dr. Dougherty. Agree with history, exam findings, assessment and plan of care as outlined. In brief, Basim is a 71 year old male with history of CHITRA on CPAP, GERD, HTN, prior NSTEMI admitted with altered mental status and hypoxia. VS and nursing notes reviewed. Well appearing. Moist mucus membranes. Heart with regular rate and rhythm. Lungs sound coarse throughout. Labs and imaging reviewed. 1. Pneumonia, hypoxia--improved. Covering for aspiration with Unasyn, a typical coverage with azithromycin. Sputum culture pending. Repeat CXR this morning with some improvement. Video swallow shows oropharyngeal dysphagia but no aspiration. Easy to chew, aspiration and reflux precautions. 2. CHITRA. Continue CPAP. Baseline O2 3Lhe is desaturating quite a bit overnight based on the nocturnal oximetry done. Stressed importance of CPAP adherence. 3. Restless leg. Continue pramixpexole. 4. GERD. Continue PPI and H2 royal. 5. Depression. Continue venlafaxine 300mg. 6. HTN. Continue lisinopril. 7. BPH with LUTS. Continue alfuzosin and finasteride. Dispo: Anticipate discharge tomorrow. Damaris Stallworth is a 71 year old male with history of CHITRA/CPAP use, GERD, HTN, and prior NSTEMI who presented 02/22 for AMS and hypoxia for 1 day (was at baseline 02/21). Patient has a history of aspiration pneumonias. Baseline oxygen requirement: 3L NC. 02/24: Patient states he is feeling back to normal today and is at his baseline. He is strongly requesting to go home. Patient denies any chest pain, dyspnea, or pleuritic pain. No abdominal discomfort and no headaches. He denies any fevers or chills. Patient notes that he wishes to be home with his who recently had knee surgery. 02/23: Patient states that he is feeling much improved from presentation. He is breathing well and feels like he is at his baseline. He notes that he uses 3 L of oxygen at home all the time. He is currently not dyspneic or having pleuritic pain. Patient notes that he has CHITRA and is on CPAP, but has not been using it for the last 3+ months as it has been broken. His recently had knee surgery and he notes his attention has been wrapped up in that. Otherwise. patient states that he is not having any chest pain, abdominal discomfort, reflux, or bowel/bladder changes. Patient relayed that 10 years ago he was in an accident where a large bail of hay fell on him and ultimately crushed his chest, leaving him with damage to the diaphragm. Since he injured his diaphragm he has been having recurrent pneumonias, last was years ago (2019), but at this time he was told it was aspiration pneumonia. Review of Systems Review of Systems: As per HPI Physical Exam Physical Exam: Gen: NAD, alert, interactive HEENT: Supple, no LAD, no thyromegaly, no JVD Resp:Increased inspiratory effort, congestion present in RLL, otherwise CTAB CV:RRR, normal S1/S2, no M/R/G Abd: Soft, non-distended, no TTP, normoactive bowels, no masses Extr: 2+ dp bilaterally, no edema Skin: No rashes lesions or erythema Results & Data Results & Data ([facility]) Vital Signs (Past 12 Hours) Vital Signs Temp Pulse Pulse Pulse Resp BP Pulse Ox 02/24/22 07:00 63 02/24/22 04:04 71 02/24/22 03:32 36.6 C 60 18 127/73 94 02/24/22 01:28 81 02/23/22 23:04 36.6 C 81 18 116/63 95 02/23/22 23:03 71 02/23/22 22:18 76 Pulse Ox O2 Del Method O2 Del Method O2 Flow Rate 02/24/22 07:00 02/24/22 04:04 94 Nasal Cannula 4 02/24/22 03:32 Nasal Cannula 02/24/22 01:28 89 L Room Air 02/23/22 23:04 Nasal Cannula 02/23/22 23:03 02/23/22 22:18 98 Nasal Cannula 4 Resident Activity Tracking Resident Involvement: Resident Care Provided Care Provided: Adult Hospital Medicine (1) Hypertension Hypertension type: essential hypertension Qualified Code(s): I10 - Essential (primary) hypertension (2) Pneumonia Laterality: bilateral Lung location: unspecified part of lung Pneumonia type: due to unspecified organism Qualified Code(s): J18.9 - Pneumonia, unspecified organism
[2022-02-24] MEDS ORDERED: fentaNYL 100 MCG/HR TDSY TD SCH (09:00)
[2022-02-24] MEDS ORDERED: FERROUS SULFATE 325 MG TAB PO SCH (09:00)
[2022-02-24] MEDS: CHECK fentaNYL PATCH PLACEMENT SCH ×2 (09:12→17:04)
--- NOTE | 2022-02-24 09:15 | XRay Report ---
XR chest 1V portable HISTORY: Shortness of breath. follow pneumonia COMPARISON: Chest 02/22/2022. FINDINGS: There are low lung volumes with persistent elevation of the right hemidiaphragm. No pneumot horax. No pleural effusions. The heart remains enlarged. Mild diffuse interstitial thickening persist s. Patchy right lung airspace opacities have improved. No new focal lung consolidations. IMPRESSION: 1. Patchy right lung airspace opacities have improved. 2. Cardiomegaly and mild interstitial thickening persists. 3. Persistent elevation of the right hemidiaphragm. ACT 112: Negative or not required by law. Electronically signed by: Dandy Chawla M.D. 02/24/2022 9:14 AM
--- NOTE | 2022-02-24 11:42 | Fluoroscopy Report ---
FL video swallow CLINICAL HISTORY: assess for aspiration TECHNIQUE: Video fluoroscopy of the pharyngeal region was performed as barium mixtures of varying con sistencies were administered to the patient by the speech pathologist. A formal esophagram was not pe rformed. Comparison: Comparison is made to swallow study 11/11/2018 FINDINGS: Total fluoroscopy time: 1.8 minutes. Dysmotility was seen. There is trace penetration without aspiration with serial thin liquid swallows. IMPRESSION: Trace penetration without aspiration. Please see the speech pathology report for further details. ACT 112: Negative or not required by law. Electronically signed by: Adis De La Rosa M.D. 02/24/2022 11:41 AM
[2022-02-24] MEDS: AZITHROMYCIN 500 MG in DEXTROSE 5% 250 ML IV SCH (16:03)
[2022-02-24] MEDS: CYCLOBENZAPRINE HCL 10 MG TAB PO SCH (20:05)
[2022-02-24] MEDS: ALFUZOSIN HCL 10 MG TAB PO SCH (20:05)
[2022-02-24] MEDS: ENOXAPARIN INJ 40 MG/0.4 ML SYR SQ SCH (20:05)
[2022-02-24] MEDS: CHOLECALCIFEROL 1,000 UNITS 25 MCG TAB PO SCH (20:06)
[2022-02-24] MEDS: ASCORBIC ACID 500 MG TAB PO SCH (20:07)
[2022-02-24] MEDS: ASPIRIN 81 MG ECTAB PO SCH (20:07)
[2022-02-24] MEDS: PANTOprazole 40 MG TAB PO SCH (20:07)
[2022-02-24] MEDS: FOLIC ACID 1 MG TAB PO SCH (20:07)
[2022-02-24] MEDS: PRAVASTATIN SOD 20 MG TAB PO SCH (20:08)
[2022-02-24] MEDS: FAMOTIDINE 20 MG TAB PO SCH (20:08)
[2022-02-24] MEDS: VENLAFAXINE HCL XR 150 MG CAPXR PO SCH (20:08)
[2022-02-24] MEDS: PRAMIPEXOLE DIHYDROCHLO 0.5 MG TAB PO SCH (20:08)
[2022-02-24] MEDS: FINASTERIDE 5 MG TAB PO SCH (20:08)
[2022-02-25] MEDS: CHECK fentaNYL PATCH PLACEMENT SCH ×2 (00:17→08:59)
[2022-02-25] MEDS: AMPICILLIN/SULBACTAM SOD 3,000 MG in 0.9 % SODIUM CHLORIDE 100 ML IV SCH ×2 (03:02→10:07)
--- NOTE | 2022-02-25 07:06 | Hospitalist Progress Note ---
Date of Service February 25, 2022 Assessment & Plan (1) Aspiration pneumonitis: (2) Pneumonia: (3) Acute alteration in mental status: (4) Acute and chronic respiratory failure with hypoxia: (5) RLS (restless legs syndrome): (6) GERD (gastroesophageal reflux disease): (7) Depression: (8) Hypertension: (9) Hypogonadotropic hypogonadism in male: (10) BPH (benign prostatic hyperplasia): (11) Severe obstructive sleep apnea: Plan Basim is a 71 year old male with history of CHITRA/CPAP use, GERD, HTN, and prior NSTEMI who presented 02/22 for AMS and hypoxia for 1 day (was at baseline 02/21). Patient has a history of aspiration pneumonia. Baseline oxygen requirement: 3L NC. Pneumonia/Hypoxia - 02/22 Pneumonia evidenced on CXR - 02/22 Cover for aspiration pneumonia with Unasyn and cover for atypical pneumonia with azithromycin. - Concern for aspiration pneumonia d/t hx of aspiration pneumonia and esophageal dysfunction - Incentive spirometer provided - Sputum culture: Not obtained - Speech consulted - 02/23 Repeat CXR in AM, Continue Unasyn and Azithromycin, plan Augmentin PO when transitioning to outpatient --- 02/24: Blood culture (x2)- No growth at 48 hours --- 02/24: CXR showing patchy right lung airspace opacities have improved --- 02/24: SpO2 93 % on 4L NC (baseline 3 L NC) --- 02/24 Video Swallow: Mild esophageal dysphagia, no aspiration evidenced. Rec diet easy to chew, head of bed elevation to 30 degrees, and alternating liquids/solids. Severe obstructive sleep apnea: - CPAP HS and while napping - 02/23 Hypercapnia likely 2/2 non-compliance with CPAP therapy at home - [facility], states his is currently [facility] and needs repaired --- Continue CPAP use inpatient, home baseline O2 is 3L NC, currently 93% on 4L (@ 0900) --- Overnight pulse oximetry showed 37 desaturations, lowest SpO2 77%, time spent < 89% 2 hours --- Discussed with patient the importance of returning to CPAP use RLS (restless legs syndrome): - Continue pramipexole 0.5 mg p.o. at bedtime GERD (gastroesophageal reflux disease): - Continue Pantoprazole 40 mg p.o. at bedtime and Famotidine 20 mg p.o. at bedtime Depression: - Continue venlafaxine 300 mg p.o. at bedtime Hypertension: - Home Lisinopril held on admission BPH (benign prostatic hyperplasia): - Continue alfuzosin 10 mg p.o. at bedtime and finasteride 5 mg p.o. at bedtime DVT Prophylaxis - Lovenox 40 mg SQ daily Diet - Heart Healthy, optional minced/moist Disposition - Anticipate discharge tomorrow Admission and Anticipated Discharge Date Admission Date: February 22, 2022 Damaris Stallworth is a 71 year old male with history of CHITRA/CPAP use, GERD, HTN, and prior NSTEMI who presented 02/22 for AMS and hypoxia for 1 day (was at baseline 02/21). Patient has a history of aspiration pneumonias. Baseline oxygen requirement: 3L NC. 02/24: Patient states he is feeling back to normal today and is at his baseline. He is strongly requesting to go home. Patient denies any chest pain, dyspnea, or pleuritic pain. No abdominal discomfort and no headaches. He denies any fevers or chills. Patient notes that he wishes to be home with his who recently had knee surgery. 02/23: Patient states that he is feeling much improved from presentation. He is breathing well and feels like he is at his baseline. He notes that he uses 3 L of oxygen at home all the time. He is currently not dyspneic or having pleuritic pain. Patient notes that he has CHITRA and is on CPAP, but has not been using it for the last 3+ months as it has been broken. His recently had knee surgery and he notes his attention has been wrapped up in that. Otherwise. patient states that he is not having any chest pain, abdominal discomfort, reflux, or bowel/bladder changes. Patient relayed that 10 years ago he was in an accident where a large bail of hay fell on him and ultimately crushed his chest, leaving him with damage to the diaphragm. Since he injured his diaphragm he has been having recurrent pneumonias, last was years ago (2019), but at this time he was told it was aspiration pneumonia. Review of Systems Review of Systems: As per HPI Physical Exam Physical Exam: Gen: NAD, alert, interactive HEENT: Supple, no LAD, no thyromegaly, no JVD Resp:Increased inspiratory effort, congestion present in RLL, otherwise CTAB CV:RRR, normal S1/S2, no M/R/G Abd: Soft, non-distended, no TTP, normoactive bowels, no masses Extr: 2+ dp bilaterally, no edema Skin: No rashes lesions or erythema Results & Data Results & Data ([facility]) Vital Signs (Past 12 Hours) Vital Signs Temp Pulse Pulse Resp BP Pulse Ox O2 Del Method 02/25/22 04:00 16 94 02/25/22 02:52 36.6 C 78 18 124/74 90 BiPAP 02/24/22 22:35 69 13 95 02/24/22 22:40 36.8 C 57 L 18 130/80 96 Nasal Cannula 02/24/22 19:15 37 C 62 18 119/64 96 Nasal Cannula O2 Flow Rate 02/25/22 04:00 4 02/25/22 02:52 02/24/22 22:35 4 02/24/22 22:40 02/24/22 19:15 (1) Pneumonia Laterality: bilateral Lung location: unspecified part of lung Pneumonia type: due to unspecified organism Qualified Code(s): J18.9 - Pneumonia, unspecified organism (2) Hypertension Hypertension type: essential hypertension Qualified Code(s): I10 - Essential (primary) hypertension
[2022-02-25 08:54] LABS: Hemoglobin 13.8 g/dl (14.0-18.0); Mean Corpuscular Hgb Conc 32.1 g/dL (32.0-36.0); Mean Corpuscular Volume 87.2 fL (80.0-100.0); Mean Platelet Volume 9.7 fL (9.4-12.4); Platelet Count 261 K/uL (130-400); RDW Standard Deviation 58.2 fL (36.4-46.3); Red Blood Count 4.93 M/uL (4.63-6.08); White Blood Count 8.11 K/ul (4.8-10.8)
[2022-02-25 09:56] LABS: Albumin Globulin Ratio 1.2 (0.9-2); Albumin Level 3.9 gm/dl (3.4-5.0); BUN Creatinine Ratio 18.9 (10-20); Bilirubin,Total 0.9 mg/dl (0.2-1.0); Calcium 9.1 mg/dl (8.5-10.1); Creatinine Clr Calc Pharmacy 85.1 ml/min; Est GFR (African American) 99.9 ml/min; Est GFR (Non-African American) 86.2 ml/min; Globulin 3.3 gm/dl (2.5-4.0); Potassium 4.3 mmol/L (3.5-5.1); Total Protein 7.2 gm/dl (6.0-8.3)
--- NOTE | 2022-02-25 13:18 | Discharge Summary ---
Date of Service February 25, 2022 Admission HPI Per Admitting Provider Basim Voss is a 71 year old male who presents to the ER with altered mental state and hypoxia. He reports feeling his normal self yesterday. This morning the first thing he remembers is lots of people in his room saying his oxygen levels were low. History provided by his daughter. She reports his had knee surgery and she tried to get him up this morning but couldn't get him up. He appeared blue/purple and hypoxic therefore she called their daughter who is a nurse and ambulance. This has happened previously and he improves with oxygen on but it took a long time this morning. He eventually did come around though and refused to come in by ambulance but his daughter convinced him to come to the ER. Reportedly he has a history of aspirations. No recent speech and language assessment. Daughter is concerned he may have aspirated. He reports feeling mostly back to his normal self at this time. No fever, chills, shortness of breath, cough, nasal congestion, sinus pain. Admission Exam Per Admitting Provider Constitutional: WD/WN, vitals as above Respiratory: + labored breathing and + uses accessory muscles Auscultation: lungs clear to auscultation bilaterally Cardiovascular: RRR, no murmur, no edema Gastrointestinal (Abdomen): normal bowel sounds, soft, nontender, no hepatosplenomegaly Musculoskeletal: no cyanosis or clubbing, extremities motor strength 5/5 Skin: no rashes, warm and dry Neurologic: moves all extremities and awake; not confused Psychiatric: A+Ox3, euthymic affect Genitourinary: no CVA tenderness Principal Diagnosis Community Acquired Pneumonia Discharge Exam Gen: NAD, alert, interactive HEENT: Supple, no LAD, no thyromegaly, no JVD Resp:Increased inspiratory effort, congestion present in RLL, otherwise CTAB CV:RRR, normal S1/S2, no M/R/G Abd: Soft, non-distended, no TTP, normoactive bowels, no masses Extr: 2+ dp bilaterally, no edema Skin: No rashes lesions or erythema Discharge Data Allergies Allergy/AdvReac Type Severity Reaction Status Date / Time bee venom protein (honey bee) Allergy Intermediate EXCESSIVE Verified 02/22/22 1 5:44 SWELLING AT SITE sulfamethoxazole Allergy Intermediate TONGUE Verified 02/22/22 15:44 SWELLS, WHITE BLISTERS IN MOUTH. trimethoprim Allergy Intermediate TONGUE Verified 02/22/22 15:44 SWELLS, WHITE BLISTERS IN MOUTH. adhesive Allergy Mild SKIN Verified 02/22/22 15:44 IRRITATION morphine AdvReac Intermediate PROJECTILE Verified 02/22/22 15:44 VOMITING Consultations 02/22/22 15:03 ED Decision to Admit Stat Ordered Studies Laboratory Results WBC 8.11 K/ul (4.8-10.8) 02/25/22 08: RBC 4.93 M/uL (4.63-6.08) 02/25/22 08:23 Hgb 13.8 g/dl (14.0-18.0) L 02/25/22 08:23 Hct 43.0 % (40.1-51.0) 02/25/22 08:23 MCV 87.2 fL (80.0-100.0) 02/25/22 08:23 MCH 28.0 pg (25.0-34.0) 02/25/22 08: MCHC 32.1 g/dL (32.0-36.0) 02/25/22 08:23 RDW Std Deviation 58.2 fL (36.4-46.3) H 02/25/22 08:23 RDW Coeff of Netta 18.0 % (11.5-14.5) H 02/25/22 08:23 Plt Count 261 K/uL (130-400) 02/25/22 08:23 MPV 9.7 fL (9.4-12.4) 02/25/22 08:23 Immature Gran % (Auto) 0.6 % 02/23/22 05:23 Neut % (Auto) 74.3 % 02/23/22 05:23 Lymph % (Auto) 12.2 % 02/23/22 05:23 [place] % (Auto) 10.3 % 02/23/22 05:23 Eos % (Auto) 2.2 % 02/23/22 05:23 Baso % (Auto) 0.4 % 02/23/22 05:23 Neut # (Auto) 10.32 K/uL (1.4-6.5) H 02/23/22 05:23 Lymph # (Auto) 1.69 K/uL (1.2-3.4) 02/23/22 05:23 Davidson # (Auto) 1.43 K/uL (0.24-0.82) H 02/23/22 05:23 Eos # (Auto) 0.31 K/uL (0-0.50) 02/23/22 05:23 Baso # (Auto) 0.05 K/uL (0-0.2) 02/23/22 05:23 Immature Gran # (Auto) 0.09 K/uL (0.00-0.02) H 02/23/22 05:23 PT 11.6 Seconds (9.0-12.0) 02/22/22 12:35 INR 1.1 (0.9-1.1) 02/22/22 12:35 APTT 24.8 Seconds (21.0-31.0) 02/22/22 12:35 PTT Ratio 0.9 02/22/22 12:35 VBG pH 7.42 (7.36-7.41) H 02/22/22 13:07 VBG pCO2 54 mmHg (38-50) H 02/22/22 13:07 VBG pO2 48 mmHg 02/22/22 13:07 VBG HCO3 35 mmol/L 02/22/22 13:07 VBG O2 Saturation 81.5 % 02/22/22 13:07 VBG Base Excess 8.7 mEq/L 02/22/22 13:07 Sodium 137 mmol/L (136-145) 02/25/22 08:23 Potassium 4.3 mmol/L (3.5-5.1) 02/25/22 08:23 Chloride 98 mmol/L (98-107) 02/25/22 08:23 Carbon Dioxide 35 mmol/L (21-32) H 02/25/22 08:23 Anion Gap 4 (3-11) 02/25/22 08:23 BUN 17 mg/dl (6-23) 02/25/22 08:23 Creatinine 0.90 mg/dl (0.6-1.4) 02/25/22 08:23 Est Cr Clr Drug Dosing 85.1 ml/min 02/25/22 08:23 Est GFR ( Amer) 99.9 ml/min 02/25/22 08:23 Est GFR (Non-Af Amer) 86.2 ml/min 02/25/22 08:23 BUN/Creatinine Ratio 18.9 (10-20) 02/25/22 08:23 Glucose 96 mg/dl (70-99(Fasting)) 02/25/22 08:23 Lactate 2.0 mmol/L (0.4-2.0) 02/22/22 12:35 Calcium 9.1 mg/dl (8.5-10.1) 02/25/22 08:23 Magnesium 2.3 mg/dl (1.7-2.4) 02/23/22 05:22 Total Bilirubin 0.9 mg/dl (0.2-1.0) 02/25/22 08:23 AST 17 U/L (13-39) 02/25/22 08:23 ALT 14 U/L (7-52) 02/25/22 08:23 Alkaline Phosphatase 49 U/L (34-104) 02/25/22 08:23 Troponin I High Sens 18.9 pg/ml (0-20) D 02/22/22 18:22 Total Protein 7.2 gm/dl (6.0-8.3) 02/25/22 08:23 Albumin 3.9 gm/dl (3.4-5.0) 02/25/22 08:23 Globulin 3.3 gm/dl (2.5-4.0) 02/25/22 08:23 Albumin/Globulin Ratio 1.2 (0.9-2) 02/25/22 08:23 Procalcitonin 0.06 ng/ml (0-0.5) 02/22/22 12:35 Urine Color Yellow 02/22/22 17:55 Urine Appearance Clear (Clear) 02/22/22 17:55 Urine pH 7.0 (4.5-7.5) 02/22/22 17:55 Ur Specific [place] 1.020 (1.000-1.030) 02/22/22 17:55 Urine Protein Negative (Negative) 02/22/22 17:55 Urine Glucose (UA) Negative (Negative) 02/22/22 17:55 Urine Ketones Negative (Negative) 02/22/22 17:55 Urine Blood Negative (Negative) 02/22/22 17:55 Urine Nitrite Negative (Negative) 02/22/22 17:55 Urine Bilirubin Negative (Negative) 02/22/22 17:55 Urine Urobilinogen Negative (Negative) 02/22/22 17:55 Ur Leukocyte Esterase Negative (Negative) 02/22/22 17:55 Urine Opiates Screen Neg (Neg) 02/22/22 17:55 Ur Methadone, Qual Neg (Neg) 02/22/22 17:55 Urine Barbiturates Neg (Neg) 02/22/22 17:55 Ur Phencyclidine (PCP) Neg (Neg) 02/22/22 17:55 U Amphetamin/Meth Scrn Neg (Neg) 02/22/22 17:55 MDMA (Ecstasy) Screen Neg (Neg) 02/22/22 17:55 U Benzodiazepines Scrn Neg (Neg) 02/22/22 17:55 Ur Cocaine Metabolite Neg (Neg) 02/22/22 17:55 U Marijuana (THC) Screen Neg (Neg) 02/22/22 17:55 SARS-CoV-2 (PCR) NEGATIVE (Negative) 02/22/22 13:25 Influenza Type A (PCR) Negative (Neg) 02/22/22 13:25 Influenza Type B (PCR) Negative (Neg) 02/22/22 13:25 RSV (RT-PCR) Negative (Neg) 02/22/22 13:[address] 02/22/22 12:56 CT OF THE CERVICAL SPINE WITHOUT CONTRAST CLINICAL HISTORY: Altered mental status. COMPARISON STUDY: CTA of the neck September 08, 2018. TECHNIQUE: Helical axial images of the cervical spine were obtained without IV contrast. Sagittal and coronal reconstructions were viewed. Automated exposure control was utilized for the study. A dose lowering technique was utilized adhering to the principles of ALARA. FINDINGS: Alignment of the cervical spine is anatomic. Vertebral body heights are maintained. No acute cervical spine fracture or subluxation is present. There is no prevertebral edema. Facet joints are intact. Moderate multilevel degenerative changes are present. Right apical airspace opacities are incidentally noted. There is interlobular septal thickening within the lung apices as well. IMPRESSION: 1. No acute cervical spine fracture or subluxation. 2. Interlobular septal thickening within the lung apices consistent with interstitial pulmonary edema. Right apical opacities could reflect alveolar edema or superimposed pneumonia. ACT 112: Negative or not required by law. Electronically signed by: Teo Paulino M.D. 02/22/2022 2:[address] 02/22/22 12:56 CT head/brain wo con CLINICAL HISTORY: 71 years-old Male with ams. Acutely altered mental status TECHNIQUE: Multiple axial CT images of the head were obtained without contrast. A dose lowering technique was utilized adhering to the principles of ALARA. COMPARISON: 11/04/2021 FINDINGS: No acute intracranial hemorrhage, midline shift, intracranial mass, hydrocephalus, territorial ischemia or abnormal extra-axial collection. Motion degraded exam. Portion of the study was then repeated. Involutional changes with white matter hypodensities suggestive of chronic microvascular ischemic disease. The calvarium is intact. The paranasal sinuses, mastoid air cells, and middle ear cavities are clear. IMPRESSION: No acute intracranial abnormality. ACT 112: Negative or not required by law. The above report was generated using voice recognition software. It may contain grammatical, syntax or spelling errors. Electronically signed by: Marco Stewart M.D. 02/22/2022 2:13 PM Chest X-Ray 02/24/22 06:47 XR chest 1V portable HISTORY: Shortness of breath. follow pneumonia COMPARISON: Chest 02/22/2022. FINDINGS: There are low lung volumes with persistent elevation of the right hemidiaphragm. No pneumothorax. No pleural effusions. The heart remains enlarged. Mild diffuse interstitial thickening persists. Patchy right lung airspace opacities have improved. No new focal lung consolidations. IMPRESSION: 1. Patchy right lung airspace opacities have improved. 2. Cardiomegaly and mild interstitial thickening persists. 3. Persistent elevation of the right hemidiaphragm. ACT 112: Negative or not required by law. Electronically signed by: Dandy Chawla M.D. 02/24/2022 9:14 AM Videofluoroscopic Swallow 02/24/22 11:00 FL video swallow CLINICAL HISTORY: assess for aspiration TECHNIQUE: Video fluoroscopy of the pharyngeal region was performed as barium mixtures of varying consistencies were administered to the patient by the speech pathologist. A formal esophagram was not performed. Comparison: Comparison is made to swallow study 11/11/2018 FINDINGS: Total fluoroscopy time: 1.8 minutes. Dysmotility was seen. There is trace penetration without aspiration with serial thin liquid swallows. IMPRESSION: Trace penetration without aspiration. Please see the speech pathology report for further details. ACT 112: Negative or not required by law. Electronically signed by: Adis De La Rosa M.D. 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 Patient has a history of aspiration pneumonia. Baseline oxygen requirement: 3L NC. Pneumonia/Hypoxia - 02/22 Pneumonia evidenced on CXR - 02/22 Cover for aspiration pneumonia with Unasyn and cover for atypical pneumonia with azithromycin. - Concern for aspiration pneumonia d/t hx of aspiration pneumonia and esophageal dysfunction - Incentive spirometer provided - Sputum culture: Not obtained - Speech consulted - 02/23 Repeat CXR in AM, Continue Unasyn and Azithromycin, plan Augmentin PO when transitioning to outpatient - 02/24: Blood culture (x2)- No growth at 48 hours, CXR showing patchy right lung airspace opacities have improved, SpO2 93 % on 4L NC (baseline 3 L NC) - 02/24 Video Swallow: Mild esophageal dysphagia, no aspiration evidenced. Rec diet easy to chew, head of bed elevation to 30 degrees, and alternating liquids/solids. --- 02/25 Ongoing clinical improvement, vitals stable, patient afebrile, SpO2 94% on 3L NC --- Received Azithromycin 500 mg x 3 --- IV Unasyn discontinued, sent with Augmentin 875 mg BID for an additional 4 days (total 7 days) Severe obstructive sleep apnea: - CPAP HS and while napping - 02/23 Hypercapnia likely 2/2 non-compliance with CPAP therapy at home - [facility], [facility] and needs repaired - 02/24 Continue CPAP use inpatient, home baseline O2 is 3L NC, currently 93% on 4L (@ 0900) - Overnight pulse oximetry showed 37 desaturations, lowest SpO2 77%, time spent < 89% 2 hours --- 02/25 Discussed with patient the importance of returning to CPAP use and sleeping at 30 degrees of head elevation Chronic Conditions: * RLS (restless legs syndrome)- Continue pramipexole 0.5 mg p.o. at bedtime * GERD (gastroesophageal reflux disease)- Continue Pantoprazole 40 mg p.o. at bedtime and Famotidine 20 mg p.o. at bedtime * Depression - Continue venlafaxine 300 mg p.o. at bedtime * Hypertension - Home Lisinopril held on admission * BPH (benign prostatic hyperplasia)- Continue alfuzosin 10 mg p.o. at bedtime and finasteride 5 mg p.o. at bedtime DVT Prophylaxis - Lovenox 40 mg SQ daily Diet - Heart Healthy, optional minced/moist Disposition - Discharge to home Total Time Total Time Spent Total Time Spent (In Minutes): See attending attestation. Discharge Plan Discharge Items Patient Disposition: Home - Self-Care Reason For Visit: COMUNITY-ACQUIRED PNEUMONIA, ACUTE HYPOXIC RESPIRA Discharge Diagnosis: Community acquired pneumonia Activity: Resume your previous activity Non-emergency contact: Primary Care Provider Call non-emergency contact if: you have any medication questions, your symptoms worsen and you have a fever Follow-up/Referrals: Francis Rubin NP-C [Primary Care Provider] - Diet: Regular Addtl Attending Provider Instructions: You were admitted to the hospital for community acquired pneumonia with associated low oxygen levels. Due to your history of aspiration pneumonia, you were evaluated by speech therapy for aspiration, which was ultimately negative. You completed your course of Azithromycin while inpatient, but you will be sent home with an additional medication, Augmentin, which was started in the hospital. A discharge summary will be sent to your primary care physician to ensure continuity of care. Please bring this discharge summary with you to your next office appointment so that your provider can review it at that time. Follow-up appointments: - Make a follow-up appointment with your PCP within the next week. It is very important that you follow up with them shortly after discharge from the hospital. We have requested a follow-up appointment with your primary care physician within one week of discharge. Please call their office if you do not hear from them. Medications: - Your medication list has been reviewed and reconciled upon discharge to ensure accuracy and continuity of care. An updated list of all your medications is included with your hospital discharge paperwork. Please review this list closely, and make note of any changes. - We sent a new medication called Augmentin. Please take 875mg by mouth, twice a day (every 12 hours) for an additional 4 days. You received 3 days of antibiotics inpatient, 4 additional days will be sent, for a total of 7 days. - If you have any issues filling these prescriptions, please call [phone] and ask to leave a message for Dr. Dougherty. - Take your medications as instructed; do not skip a dose of your medicines. Make sure all of your doctors know every medicine you are taking (including [id number]-[id number] medicines, vitamins, and supplements). - Call your primary care provider before taking any new medicines (including over- the-counter medicines, vitamins, and supplements), because some of these may interact with your current medications, or may make your symptoms worse. - Tell your primary care provider if you cannot afford your medications. Contact your Primary Care Provider if you experience: - Shortness of breath - Fever - Difficulty following your treatment plan or taking medications Call 911 or go to the emergency department if you experience: - Sudden, severe abdominal pain or nausea/vomiting - Severe chest pain, or chest pain that radiates (moves) to your jaw or arm - Sudden, severe shortness of breath or difficulty breathing It was a pleasure to be a part of your care, Dr. Omi Dougherty Pending Studies at Discharge: No Stand-Alone Forms: My [employer], Smoking Cessation Medications and [place] Order Prescriptions: New amoxicillin-pot clavulanate 875-125 mg Tablet 1 tab PO BID 4 Days Qty: 8 0RF Continued alfuzosin 10 mg tablet extended release 24 hr 10 mg PO HS Rx Instructions: administer after the same meal each day pramipexole 0.5 mg tablet 0.5 mg PO HS cyclobenzaprine 10 mg tablet 10 mg PO HS venlafaxine 75 mg capsule,extended release 24hr 300 mg PO HS Rx Instructions: TAKES 4 CAPSULES loratadine [Claritin] 10 mg tablet 10 mg PO DAILY PRN (Reason: Congestion) ondansetron 4 mg tablet,disintegrating 4 mg PO Q8H PRN (Reason: Nausea And Vomiting) ferrous sulfate 325 mg (65 mg iron) tablet 325 mg PO Q OTHER DAY folic acid 1 mg tablet 1 mg PO HS ascorbic acid (vitamin C) 500 mg tablet 250 mg PO HS cholecalciferol (vitamin D3) 25 mcg (1,000 unit) capsule 2,000 units PO HS famotidine 20 mg tablet 20 mg PO HS omeprazole 20 mg capsule,delayed release(DR/EC) 20 mg PO HS lisinopril 5 mg tablet 5 mg PO HS dicyclomine 10 mg capsule 10 mg PO BID PRN (Reason: ABD PAIN) fentanyl 100 mcg/hr patch 72 hour 100 mcg transdermal Q48H Rx Instructions: CHANGED 02/22/22 AM. aspirin [Alice Low Dose Aspirin] 81 mg tablet,delayed release (DR/EC) 81 mg PO HS finasteride 5 mg tablet 5 mg PO HS testosterone [AndroGel] 20.25 mg/1.25 gram (1.62 %) gel in metered-dose pump 2 pump topical HS Rx Instructions: apply 1 pump amount over max area of each upper arm and shoulder pravastatin 40 mg Tablet 20 mg PO HS Discharge Orders: Discharge Order (Routine); Ordered 02/25/22 Ordered By: Omi Dougherty Admission Data Admit Date/Time: 02/22/22 15:11 Attending Provider: Jazzmine Ozuna Admit Provider: Arnold Oliveros Primary Care Provider: Francis Rubin Other Providers: Arnold Oliveros ; [facility] Other Interventions: Discharge Summary Assessment (RN) Last Done: 02/25/22 11:24 Supervising Physician Co-Signing Physician Notes Patient seen and examined independently of PGY-1 Dr. Querns. Agree with history, exam findings, assessment and plan of care as outlined. In brief, Basim is a 71 year old male with history of CHITRA on CPAP, GERD, HTN, prior NSTEMI admitted with altered mental status and hypoxia. VS and nursing notes reviewed. Well appearing. Moist mucus membranes. Heart with regular rate and rhythm. Lungs sound coarse throughout. Labs and imaging reviewed. 1. Pneumonia, hypoxia--improved. Covering for aspiration with Unasyn, atypical coverage with azithromycin. Will receive last dose of azithromycin this afternoon prior to discharge. 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 Sputum culture pending. Video swallow shows oropharyngeal dysphagia but no aspiration. Easy to chew, aspiration and reflux precautions. 2. CHITRA. Continue CPAP. Baseline O2 3Lhe is desaturating quite a bit overnight based on the nocturnal oximetry done. Stressed importance of CPAP adherence. 3. Restless leg. Continue pramixpexole. 4. GERD. Continue PPI and H2 royal. 5. Depression. Continue venlafaxine 300mg. 6. HTN. Continue lisinopril. 7. BPH with LUTS. Continue alfuzosin and finasteride. Dispo: Discharge home today. I personally spent 25 minutes discharge planning for this patient. Resident Activity Tracking Resident Involvement: Resident Care Provided Care Provided: Adult Hospital Medicine
[2022-02-25] MEDS ORDERED: AZITHROMYCIN 250 MG TAB PO ONE (15:30)
[2022-02-25] MEDS ORDERED: AMOXICILLIN/CLAVULANATE 875 MG TAB PO SCH (17:00)
== END 2022-02-25 16:03 | disposition home or self-care (01) | DRG 193 ==
LOC: ED 12:11 → SUATTDRO 15:11 → 4W 15:11

== ENCOUNTER 2022-05-31 16:28 | Inpatient (IN) ==
[2022-05-31] MEDS ORDERED: ADENOSINE IV SOLN 3 MG/ML 2 ML VIAL IV ONE (16:59)
[2022-05-31] MEDS ORDERED: SODIUM CHLORIDE 0.9% 1000ML 500 ML IV SCH (17:00)
[2022-05-31] MEDS ORDERED: LORazepam 2 MG/1 ML VIAL ONE (17:01)
[2022-05-31 17:17] LABS: Basophils % (auto) 0.9 %; Eosinophils # (auto) 0.21 K/uL (0-0.50); Eosinophils % (auto) 1.9 %; Hematocrit (blood only) 45.7 % (42.0-52.0); Hemoglobin 15.8 g/dl (14.0-18.0); Immature Granulocytes # (auto) 0.16 K/uL (0.01-0.20); Immature Granulocytes % (auto) 1.5 %; Lymphocytes # (auto) 2.28 K/uL (1.2-3.4); Lymphocytes % (auto) 21.2 %; Mean Corpuscular Hemoglobin 32.2 pg (25.0-34.0); Mean Corpuscular Hgb Conc 34.6 g/dL (32.0-36.0); Mean Corpuscular Volume 93.3 fL (80.0-100.0); Mean Platelet Volume 9.9 fL (9.4-12.4); Monocytes # (auto) 1.22 K/uL (0.11-0.59); Monocytes % (auto) 11.3 %; Neutrophils # (auto) 6.81 K/uL (1.40-6.50); Neutrophils % (auto) 63.2 %; Platelet Count 344 K/uL (130-400); RDW Coefficient of Variation 15.9 % (11.5-14.5); RDW Standard Deviation 54.8 fL (36.4-46.3); White Blood Count 10.78 K/ul (4.8-10.8)
[2022-05-31 17:35] LABS: Base Excess VBG 4.8 mEq/L; HCO3 VBG 32 mmol/L; Oxygen Saturation VBG < 60.0 %; PCO2 VBG 60 mmHg (38-50); PO2 VBG 28 mmHg; pH VBG 7.34 (7.36-7.41)
[2022-05-31 17:41] LABS: Alanine Aminotransferase 15 U/L (7-52); Albumin Level 4.3 gm/dl (3.4-5.0); Alkaline Phosphatase 51 U/L (34-104); Anion Gap 0 (3-11); Aspartate Aminotransferase 19 U/L (13-39); BUN Creatinine Ratio 17.1 (10-20); Bilirubin Direct 0.2 mg/dl (0-0.2); Bilirubin,Total 0.9 mg/dl (0.2-1.0); Blood Urea Nitrogen 25 mg/dl (6-23); Calcium 9.4 mg/dl (8.5-10.1); Carbon Dioxide 36 mmol/L (21-32); Chloride 102 mmol/L (98-107); Est GFR (African American) 55.7 ml/min; Glucose 118 mg/dl (70-99(Fasting)); Lipase 27 U/L (11-82); Magnesium 1.9 mg/dl (1.7-2.4); Potassium 4.4 mmol/L (3.5-5.1); Sodium 138 mmol/L (136-145); Total Protein 7.5 gm/dl (6.0-8.3)
[2022-05-31 17:44] LABS: Troponin I High Sensitivity 25.9 pg/ml (0-20)
[2022-05-31 17:48] LABS: D Dimer 350 ug/L FEU (0-500); Partial Thromboplastin Ratio 0.9; Partial Thromboplastin Time 24.2 Seconds (21.0-31.0); Prothrombin Time 10.9 Seconds (9.0-12.0)
--- NOTE | 2022-05-31 18:03 | XRay Report ---
XR chest 1V portable HISTORY: 71 years-old Male Sepsis acute sepsis COMPARISON: 02/24/2022 TECHNIQUE: AP view the chest FINDINGS: Cardiomediastinal and hilar silhouettes are unchanged. Chronic right hemidiaphragmatic elevation. No pneumothorax, large pleural effusion or lobar airspace consolidation. Mild chronic interstitial coars ening. Degenerative changes of the shoulders and spine. IMPRESSION: No acute process. ACT 112: Negative or not required by law. The above report was generated using voice recognition software. It may contain grammatical, syntax o r spelling errors. Electronically signed by: Marco Stewart M.D. 05/31/2022 6:02 PM
[2022-05-31] MEDS ORDERED: ADENOSINE IV SOLN 3 MG/ML 2 ML VIAL IV STA (18:11)
[2022-05-31] MEDS ORDERED: SODIUM CHLORIDE 0.9% 1000ML 500 ML IV ONE (18:11)
[2022-05-31] MEDS ORDERED: OPTIRAY 350 100ml IV ONE (18:28)
--- NOTE | 2022-05-31 19:00 | CT Scan Report ---
CT SCAN OF THE ABDOMEN AND PELVIS WITH IV CONTRAST CLINICAL HISTORY: Generalized abdominal pain. COMPARISON STUDY: Abdominal CT dated 06/26/2018. TECHNIQUE: Following the IV administration of 90 cc of Optiray 350, CT scan of the abdomen and pelvi s is performed from the lung bases to the proximal femora. Images are reviewed in the axial, sagittal , and coronal planes. IV contrast was administered without complication. A dose lowering technique wa s utilized adhering to the principles of ALARA. CT DOSE: 607.38 mGy.cm FINDINGS: Lung bases: The heart is normal in size and without pericardial effusion. The coronary arteries are d ensely calcified. A small hiatal hernia is noted. A 5 mm pulmonary nodule in the lingula seen on imag e #36 is unchanged from 2019. A 5 mm pleural-based nodule at the right lung base is seen on image #10 4. This could not be assessed previously due to consolidation and pleural effusion. Linear scarring/a telectasis is present in both lungs. There is no airspace consolidation typical for pneumonia or pleu ral effusion on today's examination. Liver: The contrast-enhanced liver is normal in size, contour, and attenuation. There is no intrahepa tic biliary ductal dilatation. The hepatic veins and portal veins are patent. Gallbladder: Small gallstones are suspected. Spleen: Normal in size and attenuation. Pancreas: Unremarkable. Adrenal glands: Unremarkable. Kidneys: The contrast enhanced kidneys are normal in size and without hydronephrosis. The kidneys enh ance symmetrically. Abdominal vasculature: The abdominal aorta is normal in course and caliber noting mild to moderate at herosclerotic calcification. Bowel: There is moderate to severe constipation. No bowel obstruction is seen. There are scattered co lonic diverticula without CT evidence of acute diverticulitis. The appendix is dilated, measuring to 10 mm as seen on image #302. There is no gas within the lumen and the wall appears mildly thickened. Question faint perivascular infiltration. Appendiceal caliber represents a significant change from 2 019. Peritoneum: There is no intraperitoneal free air or abdominal ascites. There is a small fat-containin g umbilical hernia. Lymphadenopathy: A prominent left pelvic sidewall node measures 9 mm in short axis. This is unchanged from 2019. Pelvic viscera: The prostate gland is enlarged and heterogeneous noting median lobe hypertrophy. The bladder is mildly distended but otherwise normal in appearance. Skeletal structures: The skeletal structures are osteopenic. There is moderate to advanced lumbosacra l spondylosis. No lytic or blastic lesions are seen. There are chronic/healed right-sided rib fractur es. IMPRESSION: 1. The appendix is dilated measuring up to 10 mm, and the wall appears mildly thickened. There may be faint periappendiceal infiltration, and the caliber of the appendix has significantly changed as com pared to 06/26/2018. Mild/early acute appendicitis is not excluded. Clinical correlation will be essent ial and surgical assessment is advised. If this does not fit the clinical presentation consider short -term CT follow-up. 2. Moderate to severe constipation. 3. Coronary artery calcification. 4. Additional findings as above. ACT 112: Negative or not required by law. Electronically signed by: Kody Leonardo M.D. 05/31/2022 6:58 PM
[2022-05-31] MEDS ORDERED: metroNIDAZOLE 500 MG/100 ML BAG IV STA (19:16)
[2022-05-31] MEDS ORDERED: CIPROFLOXACIN / D5W 400 MG/200 ML BAG IV STA (19:16)
--- NOTE | 2022-05-31 19:38 | Surgery Consultation ---
Date of Consultation May 31, 2022 Assessment & Plan (1) Abdominal pain: The patient is being admitted on the hospitalist service. Recommend proceeding as follows: The patient is noted to have an abnormal appearing appendix on CT scan, however the patient's abdominal exam is relatively benign at this time and his cardiac issues currently preclude any surgical intervention at this time Recommend providing analgesics and antiemetics as needed Recommend continuing antibiotics in the form of Cipro and Flagyl that have been initiated by the treating emergency room physician Consideration can be given to pursuing repeat imaging in the future if patient continues to have abdominal pain to see if there is any further evidence of acute appendicitis Remainder of plan as directed by the primary service this patient's cardiac issues would preclude surgery at this time. Supervising Physician Co-Signing Physician Notes Patient seen and examined, labs and imaging reviewed, agree with above. 71-year-old male with 3-week history of episodic tachycardia and hypotension and near syncopal events presented for same. He also complains of some lower abdominal discomfort, worse on the left. During his ER stay he went into SVT requiring adenosine. CT scan of the abdomen was performed and showed a mildly dilated appendix with no surrounding infiltration or obvious signs of acute appendicitis, but noticeable change from prior scan in 2019. On exam he is afebrile with currently stable vitals. His abdomen is soft, mildly tender to palpation in the left lower quadrant with no guarding or rebound in the right lower quadrant. CT scan personally reviewed and agree with the assessment of a fluid-filled appendix with no obvious signs of acute appendicitis. Given his recent cardiac events, would defer any surgical intervention at this time. This unlikely represents acute appendicitis, but we will bridge him with antibiotics. If further concern would recommend repeating the CT with oral and IV contrast. Surgery will continue to follow. History of Present Illness Reason for Consultation: Possible appendicitis History of Present Illness This is a 71-year-old male who presented to [facility] secondary to lightheadedness and dizziness. The patient notes that he has a h ome pulse oximeter and blood pressure cuff and over the past month he has noted that he has had low blood pressures and fast heart rate. He saw his primary care team at the [facility] recently and they referred him to cardiology without any further intervention. The patient says it is approximate 1 month until he is due to see [facility] physician and cardiology. Patient presented to the emergency department today because he felt markedly lightheaded and felt as though his heart was racing. He did not note any chest pain. He denies any fevers. He denies any nausea or vomiting. He does note some minor left-sided abdominal pain in the left lower quadrant without radiation or modifying factors. He took his blood pressure and noted that he was hypotensive with a blood pressure of 60 and this systolic. He also notes his heart rate was high as 170. He denies any previous abdominal surgeries. He notes his most recent oral intake was this morning. He does report that he has been having intermittent nausea with and without meals for the past several months. Since arrival to the hospital patient has had labs and imaging which independent reviewed. He had a chest x-ray that showed no evidence of pneumonia or CHF. A CT scan of the abdomen and pelvis showed the patient had a dilated appendix which measured approximately 10 mm with a slightly thickened appendiceal wall. There is only faint periappendiceal infiltration. When compared to CT scan on 06/26/2018 the caliber of the appendix was noted to be significantly changed. The interpreting radiologist could not exclude an early appendicitis. Labs include a CBC her white blood cell count, hemoglobin, hematocrit, and platelet count were normal. Coagulation studies were normal. Chemistry profile showed sodium and potassium were normal. BUN and creatinine were noted to be 25 and 1.4. Patient does not have any elevation of his lactic acid level. LFTs were unremarkable. His lipase was not elevated. Procalcitonin was normal. A troponin was performed that was elevated at 25.9. An EKG was performed that showed supraventricular tachycardia. There is nonspecific T wave abnormalities noted. Since arrival to the emergency department I discussed with the treating emergency room physician and due to the patient's supraventricular tachycardia he gave the patient adenosine with improvement of the patient's heart rate and blood pressure. Due to the CT scan findings Cipro and Flagyl were initiated. At the time of my interview the patient was resting comfortably in bed and he was in no distress. Allergies Allergy/AdvReac Type Severity Reaction Status Date / Time bee venom protein (honey bee) Allergy Intermediate EXCESSIVE Verified 05/31/22 19:10 SWELLING AT SITE sulfamethoxazole Allergy Intermediate TONGUE Verified 05/31/22 19:10 SWELLS, WHITE BLISTERS IN MOUTH. trimethoprim Allergy Intermediate TONGUE Verified 05/31/22 19:10 SWELLS, WHITE BLISTERS IN MOUTH. adhesive Allergy Mild SKIN Verified 05/31/22 19:10 IRRITATION morphine AdvReac Intermediate PROJECTILE Verified 05/31/22 19:10 VOMITING Home Medications Medication Instructions Recorded Confirmed Type cyclobenzaprine 10 mg tablet 10 mg PO HS 02/28/19 05/31/22 History omeprazole 20 mg capsule,delayed 20 mg PO HS 02/28/19 05/31/22 History release pramipexole 0.5 mg tablet 0.5 mg PO HS 02/28/19 05/31/22 History loratadine 10 mg tablet (Claritin) 10 mg PO DAILY PRN Congestion 03/13/19 05/31/22 History ondansetron 4 mg disintegrating 4 mg PO Q8H PRN Nausea And Vomiting 04/10/19 05/31/22 History tablet cholecalciferol (vitamin D3) 25 2,000 units PO HS 06/10/19 05/31/22 History mcg (1,000 unit) capsule lisinopril 5 mg tablet 5 mg PO HS 08/02/19 05/31/22 History alfuzosin 10 mg tablet,extended 10 mg PO HS 02/12/20 05/31/22 History release 24 hr dicyclomine 10 mg capsule 10 mg PO BID PRN ABD PAIN 02/12/20 05/31/22 History famotidine 20 mg tablet 20 mg PO HS 03/08/20 05/31/22 History pravastatin 40 mg tablet 20 mg PO HS 11/04/21 05/31/22 History ascorbic acid (vitamin C) 500 mg 250 mg PO HS 01/11/22 05/31/22 History tablet ferrous sulfate 325 mg (65 mg 325 mg PO Q OTHER DAY 01/11/22 05/31/22 History iron) tablet folic acid 1 mg tablet 1 mg PO HS 01/11/22 05/31/22 History aspirin 81 mg tablet,delayed 81 mg PO HS 02/22/22 05/31/22 History release (Alice Low Dose Aspirin) fentanyl 100 mcg/hr transdermal 100 mcg transdermal Q48H 02/22/22 05/31/22 History patch testosterone (AndroGel) 2 pump topical HS 02/22/22 05/31/22 History naloxegol 25 mg tablet 25 mg PO QAM 03/23/22 05/31/22 History gabapentin 300 mg capsule 300 mg PO TID #90 caps 05/25/22 05/31/22 Rx cyanocobalamin (vitamin B-12) 2,500 mcg PO HS 05/31/22 05/31/22 History 2,500 mcg tablet Patient History Medical History Acute on chronic respiratory failure with hypoxemia Atypical chest pain BPH (benign prostatic hyperplasia) Chronic back pain Chronic respiratory failure Depression GERD (gastroesophageal reflux disease) History of acute renal failure Hypertension Hypogonadotropic hypogonadism in male Hypoxia Leukocytosis Metabolic encephalopathy Non-ST elevation ME (NSTEMI) Prostatitis Recurrent pneumonia RLS (restless legs syndrome) Surgical History History of ankle surgery Britton reconstruction-right side History of carpal tunnel release History of mandibular surgery History of surgery mass removed from left side of clavicle Status post trigger finger release Family History Mother Cancer Hypertension Myasthenia gravis Son Environmental allergies Asthma Sister Gallbladder disease Father Alzheimer disease Other No family history of bleeding disorder Social History Smoking Status: Never smoker Tobacco Type: Cigarettes Second Hand Exposure: No; Hx Alcohol Use: No Hx Substance Use: No Preferred Language: Congolese Communication Ability: Effective Instructional Support Specialist Required: No Beliefs That Will Affect Care: Orthodox Orthodox Beliefs: Christian marital status: Current Living Situation: Spouse current occupational status: retired Feels Safe at Home: Yes Assistive Devices: Cane Review of Systems Constitutional: no fever and no chills Eyes: no diplopia Ear, Nose, Mouth, Throat: no ear pain Respiratory: no cough and no dyspnea Cardiovascular: as per Subjective / HPI Gastrointestinal: as per Subjective / HPI Genitourinary: no dysuria Musculoskeletal: no back pain Integumentary: no rash Neurologic: no localized weakness Physical Exam Constitutional: WD/WN, vitals as above Eyes: no conjunctival abnormality ENMT: Ears: no hearing impairment and no external ear abnormality Mouth: no oropharynx abnormality Neck: trachea midline Respiratory: normal respiratory effort; no respiratory distress and no labored breathing Cardiovascular: Rate/Rhythm: regular rate, regular rhythm and + tachycardic Gastrointestinal (Abdomen): Abdomen is soft, nonrigid, nondistended. Bowel sounds are present. The patient had no rebound tenderness or guarding. There is no pain noted with light or deep palpation in the right lower quadrant McBurney's point. Patient did have some slight tenderness with palpation in the left lower quadrant. Musculoskeletal: No calf tenderness Skin: no rashes Neurologic: moves all extremities Psychiatric: A+Ox3, euthymic affect Results & Data ([facility]) Vital Signs (Past 12 Hours) Vital Signs Temp Pulse Resp BP Pulse Ox O2 Del Method O2 Flow Rate 05/31/22 18:50 101 H 20 99 05/31/22 18:46 108 H 27 H 99 05/31/22 18:46 92/48 L 05/31/22 18:40 101 H 28 H 97 05/31/22 18:36 95 H 21 98 3 05/31/22 18:36 101/62 05/31/22 18:15 102 H 17 96 05/31/22 18:15 101/68 05/31/22 18:10 103 H 21 94 05/31/22 18:10 102/66 05/31/22 18:05 105 H 22 93 05/31/22 18:05 117/74 05/31/22 18:00 107 H 24 97 05/31/22 18:00 116/72 05/31/22 17:55 97/67 L 05/31/22 17:55 109 H 16 61 L 05/31/22 17:51 112 H 18 05/31/22 17:51 110/76 05/31/22 17:45 108 H 24 95 05/31/22 17:45 121/79 05/31/22 17:40 112 H 29 H 97 05/31/22 17:40 111/72 05/31/22 17:35 110 H 14 98 05/31/22 17:35 101/72 05/31/22 17:30 113 H 14 98 05/31/22 17:30 115/63 05/31/22 17:26 112 H 16 95 05/31/22 17:26 99/68 L 05/31/22 17:20 114 H 18 99/68 L 97 Nasal Cannula 3 05/31/22 17:10 114 H 19 99 05/31/22 17:10 112/79 05/31/22 17:07 156 H 19 99 05/31/22 17:07 106/74 05/31/22 17:05 94/68 L 05/31/22 17:04 100/63 05/31/22 17:02 158 H 18 05/31/22 17:00 156 H 17 05/31/22 17:00 78/58 L 05/31/22 16:59 163 H 05/31/22 16:59 81/62 L 05/31/22 17:16 Nasal Cannula 3 05/31/22 16:29 36.4 C L 79 20 97/64 L 99 Nasal Cannula 3 PG Care Time/CCT Total # of Minutes Spent Total Time Spent with Patient: Total time spent is greater than 50% in coordination of care (as documented) at patient's floor/unit and/or counseling patient: Coding Level of Care Code 12406 INT INP/OBS CARE 3/75MIN Diagnoses Abdominal pain R10.9
[2022-05-31 20:17] LABS: Appearance Urine Clear (Clear); Bilirubin Urine Negative (Negative); Blood Urine Negative (Negative); Color Urine Yellow; Glucose Urine UA Negative (Negative); Ketones Urine Negative (Negative); Leukocyte Esterase Urine Negative (Negative); Nitrite Urine Negative (Negative); Protein Urine Negative (Negative); Specific Gravity Urine 1.032 (1.000-1.030); Urobilinogen Urine Negative (Negative)
[2022-05-31] MEDS ORDERED: PRAVASTATIN SOD 20 MG TAB PO STA (20:33)
[2022-05-31] MEDS ORDERED: PRAMIPEXOLE DIHYDROCHLO 0.5 MG TAB PO STA (20:33)
[2022-05-31] MEDS ORDERED: CYCLOBENZAPRINE HCL 10 MG TAB PO STA (20:33)
[2022-05-31] MEDS ORDERED: ASPIRIN 81 MG ECTAB PO STA (20:33)
--- NOTE | 2022-05-31 20:45 | History & Physical Report ---
Date of Service May 31, 2022 Assessment & Plan (1) SVT (supraventricular tachycardia): Plan: 71yo male presenting with complaint of episodic tachycardia with associated hypotension. He reports heart rates at home measuring 170-180 on occasion with blood pressure as low as 60/40. These episodes are associated with feeling weak and sluggish. He did have an episode of SVT in the ER with blood pressure of 78/58 which resolved with Adenosine 6mg IV. Suspect patient is having episodes of SVT with associated hypotension. Presently he is in sinus tachycardia with adequate blood pressure. -Admit to medical with telemetry -Check Cortisol and TSH (for episodic hypotension?) -Cardiology consultation appreciated (2) Appendicitis: Plan: Findings on CT as above with concern for appendiceal inflammation. Patient is afebrile, no leukocytosis, procalcitonin is negative. Examination of the RLQ is benign including negative -General Surgery consultation appreciated -Continue Ciprofloxacin and Flagyl -Zofran as needed for nausea -General Surgery consultation appreciated (3) Chronic pain: Plan: Patient with chronic back pain. He follows with pain clinic. Presently on Fentanyl TD 100mcg. -Continue Fentanyl TD 100mcg -Constipation noted on imaging - Bowel regimen - Miralax and Dulcolax/Senna -Continue Bentyl 10mg po BID PRN abdominal pain -Continue Flexeril 10mg po qHS -Patient was recently prescribed Gabapentin 300mg po TID for neuropathic pain but has not yet started. Will hold for now (4) RLS (restless legs syndrome): Plan: Chronic. Fairly well controlled with Pramipexole -Continue Pramipexole 0.5mg po qHS (5) Pituitary microadenoma: Plan: Patient follows with Dr. Aguilar and Dr. Reeves No acute issues (6) Severe obstructive sleep apnea: Plan: Chronic. Patient is compliant with his CPAP -Continue CPAP 6cmH2O with 3L O2 qHS (7) GERD (gastroesophageal reflux disease): Plan: Chronic -Continue Pepcid 20mg po qHS (8) Hypertension: Plan: Patient with episodes of hypotension. He is on Lisinopril 5mg po qHS -Hold Lisinopril -Monitor BP F/E/N -LR at 125mL/hr x 2 liters, monitor electrolytes, heart healthy diet as tolerated Ppx -Lovenox Code - Full per discussion with patient, at bedside Dispo - Admit to medical with telemetry History of Present Illness Chief Complaint: tachycardia and hypotension Primary Care Provider: Francis Rubin, [facility] Basim Pardo is a 71yo male with history of GERD, HTN, Depression, GERD and a pituitary microadenoma presenting from home with complaint of intermittent tachycardia and hypotension. Patient reports at least two week of intermittent episodes of elevated heart rate and low blood pressure. He reports that he occasionally feels weak or sluggish which prompts him to check his vital signs. At those times his heart rate is elevated to the 170's - 180's and his blood pressure is as low as 60/40. He reports the sensation lasts several minutes then resolves. He denies chest pain or palpitations. Denies dizziness, syncope, cough, SOB. He denies fever, chills, nausea, vomiting. Denies melena, hematochezia. He does have chronic constipation secondary to opioid use for which he uses Naloxegol as well as frequent night sweats. Weight has been stable. Also reports occasional left sided abdominal pain. No additional complaints at this time. Upon arrival to the ER patient afebrile, HD stable with initial HR of 75, blood pressure of 97/64. He did have an episode of SVT which was successfully treated with Adenosine 6mg with return to sinus tachycardia. CT of the abdomen with results below. Some concern for appendicitis. Patient denies fever, chills or right sided abdominal pain. ER Course: Adenosine 6mg NSS x 1L Cipro 400mg Flagyl 500mg Fentanyl 100mcg patch Allergies Allergy/AdvReac Type Severity Reaction Status Date / Time bee venom protein (honey bee) Allergy Intermediate EXCESSIVE Verified 05/31/22 19:10 SWELLING AT SITE sulfamethoxazole Allergy Intermediate TONGUE Verified 05/31/22 19:10 SWELLS, WHITE BLISTERS IN MOUTH. trimethoprim Allergy Intermediate TONGUE Verified 05/31/22 19:10 SWELLS, WHITE BLISTERS IN MOUTH. adhesive Allergy Mild SKIN Verified 05/31/22 19:10 IRRITATION morphine AdvReac Intermediate PROJECTILE Verified 05/31/22 19:10 VOMITING Home Medications Medication Instructions Recorded Confirmed Type cyclobenzaprine 10 mg tablet 10 mg PO HS 02/28/19 05/31/22 History omeprazole 20 mg capsule,delayed 20 mg PO HS 02/28/19 05/31/22 History release pramipexole 0.5 mg tablet 0.5 mg PO HS 02/28/19 05/31/22 History loratadine 10 mg tablet (Claritin) 10 mg PO DAILY PRN Congestion 03/13/19 05/31/22 History ondansetron 4 mg disintegrating 4 mg PO Q8H PRN Nausea And Vomiting 04/10/19 05/31/22 History tablet cholecalciferol (vitamin D3) 25 2,000 units PO HS 06/10/19 05/31/22 History mcg (1,000 unit) capsule lisinopril 5 mg tablet 5 mg PO HS 08/02/19 05/31/22 History alfuzosin 10 mg tablet,extended 10 mg PO HS 02/12/20 05/31/22 History release 24 hr dicyclomine 10 mg capsule 10 mg PO BID PRN ABD PAIN 02/12/20 05/31/22 History famotidine 20 mg tablet 20 mg PO HS 03/08/20 05/31/22 History pravastatin 40 mg tablet 20 mg PO HS 11/04/21 05/31/22 History ascorbic acid (vitamin C) 500 mg 250 mg PO HS 01/11/22 05/31/22 History tablet ferrous sulfate 325 mg (65 mg 325 mg PO Q OTHER DAY 01/11/22 05/31/22 History iron) tablet folic acid 1 mg tablet 1 mg PO HS 01/11/22 05/31/22 History aspirin 81 mg tablet,delayed 81 mg PO HS 02/22/22 05/31/22 History release (Alice Low Dose Aspirin) fentanyl 100 mcg/hr transdermal 100 mcg transdermal Q48H 02/22/22 05/31/22 History patch testosterone (AndroGel) 2 pump topical HS 02/22/22 05/31/22 History naloxegol 25 mg tablet 25 mg PO QAM 03/23/22 05/31/22 History gabapentin 300 mg capsule 300 mg PO TID #90 caps 05/25/22 05/31/22 Rx cyanocobalamin (vitamin B-12) 2,500 mcg PO HS 05/31/22 05/31/22 History 2,500 mcg tablet Past Med/Surg History Medical History (Updated 06/01/22 @ 01:12 by Kimberly Paz DO) Acute on chronic respiratory failure with hypoxemia Atypical chest pain BPH (benign prostatic hyperplasia) Chronic back pain Chronic respiratory failure Depression GERD (gastroesophageal reflux disease) History of acute renal failure Hypertension Hypogonadotropic hypogonadism in male Hypoxia Leukocytosis Metabolic encephalopathy Non-ST elevation [place] (NSTEMI) Prostatitis Recurrent pneumonia RLS (restless legs syndrome) Surgical History History of ankle surgery Britton reconstruction-right side History of carpal tunnel release History of mandibular surgery History of surgery mass removed from left side of clavicle Status post trigger finger release Family History Mother Cancer Hypertension Myasthenia gravis Son Environmental allergies Asthma Sister Gallbladder disease Father Alzheimer disease Other No family history of bleeding disorder Social History Smoking Status: Never smoker Tobacco Type: Cigarettes Second Hand Exposure: No; Hx Alcohol Use: No Hx Substance Use: No Preferred Language: Malian Communication Ability: Effective Carpet 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 Pads present on chest Skin: warm, dry, intact, no rashes or lesions HEENT: NC/AT, PERRL, EOMI, anicteric sclera, conjunctiva without injection, external ear normal to inspection and nontender, nares patent, slightly dry mucus membranes, dentition intact, no oropharyngeal lesions, neck supple, trachea midline, no LAD, no thyromegaly, no JVD Heart: +S1/S2, regular, tachycardic, no m/r/g Lungs: equal air entry bilaterally, no rales/rhonchi/wheezes Abd: +BS, soft, ND, mild tenderness in LLQ, no rebound/guarding/peritonitis. No pain in RLQ, no masses/organomegaly/ascites Ext: warm, 2+ pulses in UE/LE bilaterally, no clubbing/cyanosis or edema, +varicosities Neuro: nonfocal, patient AA&O x 4, speech intact, no facial droop, moving all extremities on command with equal strength 5/5 Results & Data Results & Data ([facility]) Vital Signs (Past 12 Hours) Vital Signs Temp Pulse Resp BP Pulse Ox O2 Del Method O2 Flow Rate 05/31/22 18:50 101 H 20 99 05/31/22 18:46 108 H 27 H 99 05/31/22 18:46 92/48 L 05/31/22 18:40 101 H 28 H 97 05/31/22 18:36 95 H 21 98 3 05/31/22 18:36 101/62 05/31/22 18:15 102 H 17 96 05/31/22 18:15 101/68 05/31/22 18:10 103 H 21 94 05/31/22 18:10 102/66 05/31/22 18:05 105 H 22 93 05/31/22 18:05 117/74 05/31/22 18:00 107 H 24 97 05/31/22 18:00 116/72 05/31/22 17:55 97/67 L 05/31/22 17:55 109 H 16 61 L 05/31/22 17:51 112 H 18 05/31/22 17:51 110/76 05/31/22 17:45 108 H 24 95 05/31/22 17:45 121/79 05/31/22 17:40 112 H 29 H 97 05/31/22 17:40 111/72 05/31/22 17:35 110 H 14 98 05/31/22 17:35 101/72 05/31/22 17:30 113 H 14 98 05/31/22 17:30 115/63 05/31/22 17:26 112 H 16 95 05/31/22 17:26 99/68 L 05/31/22 17:20 114 H 18 99/68 L 97 Nasal Cannula 3 05/31/22 17:10 114 H 19 99 05/31/22 17:10 112/79 05/31/22 17:07 156 H 19 99 05/31/22 17:07 106/74 05/31/22 17:05 94/68 L 05/31/22 17:04 100/63 05/31/22 17:02 158 H 18 05/31/22 17:00 156 H 17 05/31/22 17:00 78/58 L 05/31/22 16:59 163 H 05/31/22 16:59 81/62 L 05/31/22 17:16 Nasal Cannula 3 05/31/22 16:29 36.4 C L 79 20 97/64 L 99 Nasal Cannula 3 Laboratory Results Laboratory Results WBC 10.78 K/ul (4.8-10.8) 05/31/22 16:57 RBC 4.90 M/uL (4.70-6.10) 05/31/22 16:57 Hgb 15.8 g/dl (14.0-18.0) 05/31/22 16:57 Hct 45.7 % (42.0-52.0) 05/31/22 16:57 MCV 93.3 fL (80.0-100.0) 05/31/22 16:57 MCH 32.2 pg (25.0-34.0) 05/31/22 16:57 MCHC 34.6 g/dL (32.0-36.0) 05/31/22 16:57 RDW Std Deviation 54.8 fL (36.4-46.3) H 05/31/22 16:57 RDW Coeff of Netta 15.9 % (11.5-14.5) H 05/31/22 16:57 Plt Count 344 K/uL (130-400) 05/31/22 16:57 MPV 9.9 fL (9.4-12.4) 05/31/22 16:57 Immature Gran % (Auto) 1.5 % 05/31/22 16:57 Neut % (Auto) 63.2 % 05/31/22 16:57 Lymph % (Auto) 21.2 % 05/31/22 16:57 [place] % (Auto) 11.3 % 05/31/22 16:57 Eos % (Auto) 1.9 % 05/31/22 16:57 Baso % (Auto) 0.9 % 05/31/22 16:57 Neut # (Auto) 6.81 K/uL (1.40-6.50) H 05/31/22 16:57 Lymph # (Auto) 2.28 K/uL (1.2-3.4) 05/31/22 16:57 [place] # (Auto) 1.22 K/uL (0.11-0.59) H 05/31/22 16:57 Eos # (Auto) 0.21 K/uL (0-0.50) 05/31/22 16:57 Baso # (Auto) 0.10 K/uL (0-0.2) 05/31/22 16:57 Immature Gran # (Auto) 0.16 K/uL (0.01-0.20) 05/31/22 16:57 PT 10.9 Seconds (9.0-12.0) 05/31/22 16:57 PT Cancelled 05/31/22 16:57 INR 1.0 (0.9-1.1) 05/31/22 16:57 INR Cancelled 05/31/22 16:57 APTT 24.2 Seconds (21.0-31.0) 05/31/22 16:57 APTT Cancelled 05/31/22 16:57 PTT Ratio 0.9 05/31/22 16:57 PTT Ratio Cancelled 05/31/22 16:57 D-Dimer 350 ug/L FEU (0-500) 05/31/22 16:57 VBG pH 7.34 (7.36-7.41) L 05/31/22 17:25 VBG pCO2 60 mmHg (38-50) H 05/31/22 17:25 VBG pO2 28 mmHg 05/31/22 17:25 VBG HCO3 32 mmol/L 05/31/22 17:25 VBG O2 Saturation < 60.0 % 05/31/22 17:25 VBG Base Excess 4.8 mEq/L 05/31/22 17:25 Sodium 138 mmol/L (136-145) 05/31/22 16:57 Potassium 4.4 mmol/L (3.5-5.1) 05/31/22 16:57 Chloride 102 mmol/L (98-107) 05/31/22 16:57 Carbon Dioxide 36 mmol/L (21-32) H 05/31/22 16:57 Anion Gap 0 (3-11) L 05/31/22 16:57 BUN 25 mg/dl (6-23) H 05/31/22 16:57 Creatinine 1.46 mg/dl (0.6-1.4) H 05/31/22 16:57 Est Cr Clr Drug Dosing Not Reportable 05/31/22 16:57 Est GFR ( Amer) 55.7 ml/min 05/31/22 16:57 Est GFR (Non-Af Amer) 48.0 ml/min 05/31/22 16:57 BUN/Creatinine Ratio 17.1 (10-20) 05/31/22 16:57 Glucose 118 mg/dl (70-99(Fasting)) H 05/31/22 16:57 Lactate 1.5 mmol/L (0.4-2.0) 05/31/22 16:57 Calcium 9.4 mg/dl (8.5-10.1) 05/31/22 16:57 Magnesium 1.9 mg/dl (1.7-2.4) 05/31/22 16:57 Total Bilirubin 0.9 mg/dl (0.2-1.0) 05/31/22 16:57 Direct Bilirubin 0.2 mg/dl (0-0.2) 05/31/22 16:57 AST 19 U/L (13-39) 05/31/22 16:57 ALT 15 U/L (7-52) 05/31/22 16:57 Alkaline Phosphatase 51 U/L (34-104) 05/31/22 16:57 Troponin I High Sens 25.9 pg/ml (0-20) H 05/31/22 16:57 Total Protein 7.5 gm/dl (6.0-8.3) 05/31/22 16:57 Albumin 4.3 gm/dl (3.4-5.0) 05/31/22 16:57 Lipase 27 U/L (11-82) 05/31/22 16:57 Procalcitonin < 0.05 ng/ml (0-0.5) 05/31/22 16:57 Urine Color Yellow 05/31/22 19:54 Urine Appearance Clear (Clear) 05/31/22 19:54 Urine pH 7.0 (4.5-7.5) 05/31/22 19:54 Ur Specific [place] 1.032 (1.000-1.030) H 05/31/22 19:54 Urine Protein Negative (Negative) 05/31/22 19:54 Urine Glucose (UA) Negative (Negative) 05/31/22 19:54 Urine Ketones Negative (Negative) 05/31/22 19:54 Urine Blood Negative (Negative) 05/31/22 19:54 Urine Nitrite Negative (Negative) 05/31/22 19:54 Urine Bilirubin Negative (Negative) 05/31/22 19:54 Urine Urobilinogen Negative (Negative) 05/31/22 19:54 Ur Leukocyte Esterase Negative (Negative) 05/31/22 19:54 SARS-CoV-2, RNA, NAAT NEGATIVE (NEGATIVE) 05/31/22 20:15 Impressions Abdomen/Pelvis CT 05/31/22 16:49 CT SCAN OF THE ABDOMEN AND PELVIS WITH IV CONTRAST CLINICAL HISTORY: Generalized abdominal pain. COMPARISON STUDY: Abdominal CT dated 06/26/2018. TECHNIQUE: Following the IV administration of 90 cc of Optiray 350, CT scan of the abdomen and pelvis is performed from the lung bases to the proximal femora. Images are reviewed in the axial, sagittal, and coronal planes. IV contrast was administered without complication. A dose lowering technique was utilized adhering to the principles of ALARA. CT DOSE: 607.38 mGy.cm FINDINGS: Lung bases: The heart is normal in size and without pericardial effusion. The coronary arteries are densely calcified. A small hiatal hernia is noted. A 5 mm pulmonary nodule in the lingula seen on image #36 is unchanged from 2019. A 5 mm pleural-based nodule at the right lung base is seen on image #104. This could not be assessed previously due to consolidation and pleural effusion. Linear scarring/atelectasis is present in both lungs. There is no airspace consolidation typical for pneumonia or pleural effusion on today's examination. Liver: The contrast-enhanced liver is normal in size, contour, and attenuation. There is no intrahepatic biliary ductal dilatation. The hepatic veins and portal veins are patent. Gallbladder: Small gallstones are suspected. Spleen: Normal in size and attenuation. Pancreas: Unremarkable. Adrenal glands: Unremarkable. Kidneys: The contrast enhanced kidneys are normal in size and without hydrone phrosis. The kidneys enhance symmetrically. Abdominal vasculature: The abdominal aorta is normal in course and caliber noting mild to moderate atherosclerotic calcification. Bowel: There is moderate to severe constipation. No bowel obstruction is seen. There are scattered colonic diverticula without CT evidence of acute diverticulitis. The appendix is dilated, measuring to 10 mm as seen on image #302. There is no gas within the lumen and the wall appears mildly thickened. Question faint perivascular infiltration. Appendiceal caliber represents a significant change from 2019. Peritoneum: There is no intraperitoneal free air or abdominal ascites. There is a small fat-containing umbilical hernia. Lymphadenopathy: A prominent left pelvic sidewall node measures 9 mm in short axis. This is unchanged from 2019. Pelvic viscera: The prostate gland is enlarged and heterogeneous noting median lobe hypertrophy. The bladder is mildly distended but otherwise normal in appearance. Skeletal structures: The skeletal structures are osteopenic. There is moderate to advanced lumbosacral spondylosis. No lytic or blastic lesions are seen. There are chronic/healed right-sided rib fractures. IMPRESSION: 1. The appendix is dilated measuring up to 10 mm, and the wall appears mildly thickened. There may be faint periappendiceal infiltration, and the caliber of the appendix has significantly changed as compared to 06/26/2018. Mild/early acute appendicitis is not excluded. Clinical correlation will be essential and surgical assessment is advised. If this does not fit the clinical presentation consider short-term CT follow-up. 2. Moderate to severe constipation. 3. Coronary artery calcification. 4. Additional findings as above. ACT 112: Negative or not required by law. Electronically signed by: Kody Leonardo M.D. 05/31/2022 6:58 PM Chest X-Ray 05/31/22 16:49 XR chest 1V portable HISTORY: 71 years-old Male Sepsis acute sepsis COMPARISON: 02/24/2022 TECHNIQUE: AP view the chest FINDINGS: Cardiomediastinal and hilar silhouettes are unchanged. Chronic right hemidiaphragmatic elevation. No pneumothorax, large pleural effusion or lobar airspace consolidation. Mild chronic interstitial coarsening. Degenerative changes of the shoulders and spine. IMPRESSION: No acute process. ACT 112: Negative or not required by law. The above report was generated using voice recognition software. It may contain grammatical, syntax or spelling errors. Electronically signed by: Marco Stewart M.D. 05/31/2022 6:02 PM ECG Additional Comments: EKG with SVT at 161bpm PG Care Time/CCT Total # of Minutes Spent Total Time Spent with Patient: Total time spent is greater than 50% in coordination of care (as documented) at patient's floor/unit and/or counseling patient: Coding Level of Care Code 34116 INT INP/OBS CARE 3/75MIN Diagnoses SVT (supraventricular tachycardia) I47.1 Appendicitis K37 Chronic pain G89.29 RLS (restless legs syndrome) G25.81 Pituitary microadenoma D35.2 Severe obstructive sleep apnea G47.33 GERD (gastroesophageal reflux disease) K21.9 Hypertension I10 Hypertension type: essential hypertension (1) Hypertension Hypertension type: essential hypertension Qualified Code(s): I10 - Essential (primary) hypertension
[2022-05-31] MEDS ORDERED: fentaNYL 100 MCG/HR TDSY TD SCH (21:00)
--- NOTE | 2022-05-31 23:43 | Emergency Department Note ---
History of Present Illness General Chief complaint: Hypotension Stated complaint: REF BY DOC, HYPOTENSION, TACHYCARDIA Time Seen by Provider: 05/31/22 16:41 History of Present Illness Provider complaint: Tachycardia hypotension Onset (ago): week(s) 2 71-year-old male presents emergency department for tachycardia and hypotension. Patient reports he has been taking his vitals for last 2 weeks and keeps noticing that his blood pressure randomly goes low and is heart rate goes high. He states he feels very weak when this occurs. He reports no chest pain. No d ifficulty breathing. He does report abdominal pain located in his left lower quadrant. No melena hematochezia. No nausea or vomiting. No hematuria or dysuria. Home Medications Medication Instructions Recorded Confirmed Type cyclobenzaprine 10 mg tablet 10 mg PO HS 02/28/19 05/31/22 History omeprazole 20 mg capsule,delayed 20 mg PO HS 02/28/19 05/31/22 History release pramipexole 0.5 mg tablet 0.5 mg PO HS 02/28/19 05/31/22 History loratadine 10 mg tablet (Claritin) 10 mg PO DAILY PRN Congestion 03/13/19 History ondansetron 4 mg disintegrating 4 mg PO Q8H PRN Nausea And Vomiting 04/10/19 05/31/22 History tablet cholecalciferol (vitamin D3) 25 2,000 units PO HS 06/10/19 05/31/22 History mcg (1,000 unit) capsule lisinopril 5 mg tablet 5 mg PO HS 08/02/19 05/31/22 History alfuzosin 10 mg tablet,extended 10 mg PO HS 02/12/20 05/31/22 History release 24 hr dicyclomine 10 mg capsule 10 mg PO BID PRN ABD PAIN 02/12/20 05/31/22 History famotidine 20 mg tablet 20 mg PO HS 03/08/20 05/31/22 History pravastatin 40 mg tablet 20 mg PO HS 11/04/21 05/31/22 History ascorbic acid (vitamin C) 500 mg 250 mg PO HS 01/11/22 05/31/22 History tablet ferrous sulfate 325 mg (65 mg 325 mg PO Q OTHER DAY 01/11/22 05/31/22 History iron) tablet folic acid 1 mg tablet 1 mg PO HS 01/11/22 05/31/22 History aspirin 81 mg tablet,delayed 81 mg PO HS 02/22/22 05/31/22 History release (Alice Low Dose Aspirin) fentanyl 100 mcg/hr transdermal 100 mcg transdermal Q48H 02/22/22 05/31/22 History patch testosterone (AndroGel) 2 pump topical HS 02/22/22 05/31/22 History naloxegol 25 mg tablet 25 mg PO QAM 03/23/22 05/31/22 History gabapentin 300 mg capsule 300 mg PO TID #90 caps 05/25/22 05/31/22 Rx cyanocobalamin (vitamin B-12) 2,500 mcg PO HS 05/31/22 05/31/22 History 2,500 mcg tablet Allergies Allergy/AdvReac Type Severity Reaction Status Date / Time bee venom protein (honey bee) Allergy Intermediate EXCESSIVE Verified 05/31/22 19:10 SWELLING AT SITE sulfamethoxazole Allergy Intermediate TONGUE Verified 05/31/22 19:10 SWELLS, WHITE BLISTERS IN MOUTH. trimethoprim Allergy Intermediate TONGUE Verified 05/31/22 19:10 SWELLS, WHITE BLISTERS IN MOUTH. adhesive Allergy Mild SKIN Verified 05/31/22 19:10 IRRITATION morphine AdvReac Intermediate PROJECTILE Verified 05/31/22 19:10 VOMITING Past Med/Surg History Medical History Acute on chronic respiratory failure with hypoxemia Atypical chest pain BPH (benign prostatic hyperplasia) Chronic back pain Chronic respiratory failure Depression GERD (gastroesophageal reflux disease) History of acute renal failure Hypertension Hypogonadotropic hypogonadism in male Hypoxia Leukocytosis Metabolic encephalopathy Non-ST elevation IA (NSTEMI) Prostatitis Recurrent pneumonia RLS (restless legs syndrome) Surgical History History of ankle surgery Britton reconstruction-right side History of carpal tunnel release History of mandibular surgery History of surgery mass removed from left side of clavicle Status post trigger finger release Family History Mother Cancer Hypertension Myasthenia gravis Son Environmental allergies Asthma Sister Gallbladder disease Father Alzheimer disease Other No family history of bleeding disorder Social History Smoking Status: Never smoker Tobacco Type: Cigarettes Second Hand Exposure: No; Hx Alcohol Use: No Hx Substance Use: No Preferred Language: Turkmen Communication Ability: Effective Assembly Press Operator Required: No Beliefs That Will Affect Care: Catholic Catholic Beliefs: Romelia marital status: Current Living Situation: Spouse current occupational status: retired Feels Safe at Home: Yes Assistive Devices: Cane Physical Exam Vital Signs Vital Signs - 24 hr 05/31/22 16:29 05/31/22 17:16 05/31/22 16:59 Temperature 36.4 C L Temperature Source Temporal Artery Scan Pulse Rate 79 Pulse Rate [Apical] Pulse Rate from SpO2 Sensor Respiratory Rate 20 Respiratory Effort / Characteristics Non-Labored Spontaneous Respiratory Depth Normal Blood Pressure 97/64 L 81/62 L Blood Pressure [Right Arm] Blood Pressure Mean 75 68 Blood Pressure Mean [Right Arm] Pulse Oximetry 99 Oxygen Delivery Method Nasal Cannula Nasal Cannula Oxygen Flow Rate 3 3 Sepsis Recent Fever Within 48 Hours No Sepsis New/Unexplained Change in Mental Status No Sepsis Action Taken by Nursing No Action Required Pulse Oximetry Post Tiitration 98 05/31/22 16:59 05/31/22 17:00 05/31/22 17:00 Temperature Temperature Source Pulse Rate 163 H 156 H Pulse Rate [Apical] Pulse Rate from SpO2 Sensor Respiratory Rate 17 Respiratory Effort / Characteristics Respiratory Depth Blood Pressure 78/58 L Blood Pressure [Right Arm] Blood Pressure Mean 64 Blood Pressure Mean [Right Arm] Pulse Oximetry Oxygen Delivery Method Oxygen Flow Rate Sepsis Recent Fever Within 48 Hours Sepsis New/Unexplained Change in Mental Status Sepsis Action Taken by Nursing Pulse Oximetry Post Tiitration 05/31/22 17:02 05/31/22 17:04 05/31/22 17:05 Temperature Temperature Source Pulse Rate 158 H Pulse Rate [Apical] Pulse Rate from SpO2 Sensor Respiratory Rate 18 Respiratory Effort / Characteristics Respiratory Depth Blood Pressure 100/63 94/68 L Blood Pressure [Right Arm] Blood Pressure Mean 75 76 Blood Pressure Mean [Right Arm] Pulse Oximetry Oxygen Delivery Method Oxygen Flow Rate Sepsis Recent Fever Within 48 Hours Sepsis New/Unexplained Change in Mental Status Sepsis Action Taken by Nursing Pulse Oximetry Post Tiitration 05/31/22 17:07 05/31/22 17:07 05/31/22 17:10 Temperature Temperature Source Pulse Rate 156 H Pulse Rate [Apical] Pulse Rate from SpO2 Sensor 156 H Respiratory Rate 19 Respiratory Effort / Characteristics Respiratory Depth Blood Pressure 106/74 112/79 Blood Pressure [Right Arm] Blood Pressure Mean 84 90 Blood Pressure Mean [Right Arm] Pulse Oximetry 99 Oxygen Delivery Method Oxygen Flow Rate Sepsis Recent Fever Within 48 Hours Sepsis New/Unexplained Change in Mental Status Sepsis Action Taken by Nursing Pulse Oximetry Post Tiitration 05/31/22 17:10 05/31/22 17:20 05/31/22 17:26 Temperature Temperature Source Pulse Rate 114 H 114 H Pulse Rate [Apical] Pulse Rate from SpO2 Sensor 115 H 113 H Respiratory Rate 19 18 Respiratory Effort / Characteristics Respiratory Depth Blood Pressure 99/68 L 99/68 L Blood Pressure [Right Arm] Blood Pressure Mean 78 78 Blood Pressure Mean [Right Arm] Pulse Oximetry 99 97 Oxygen Delivery Method Nasal Cannula Oxygen Flow Rate 3 Sepsis Recent Fever Within 48 Hours Sepsis New/Unexplained Change in Mental Status Sepsis Action Taken by Nursing Pulse Oximetry Post Tiitration 05/31/22 17:26 05/31/22 17:30 05/31/22 17:30 Temperature Temperature Source Pulse Rate 112 H 113 H Pulse Rate [Apical] Pulse Rate from SpO2 Sensor Respiratory Rate 16 14 Respiratory Effort / Characteristics Respiratory Depth Blood Pressure 115/63 Blood Pressure [Right Arm] Blood Pressure Mean 80 Blood Pressure Mean [Right Arm] Pulse Oximetry 95 98 Oxygen Delivery Method Oxygen Flow Rate Sepsis Recent Fever Within 48 Hours Sepsis New/Unexplained Change in Mental Status Sepsis Action Taken by Nursing Pulse Oximetry Post Tiitration 05/31/22 17:35 05/31/22 17:35 05/31/22 17:40 Temperature Temperature Source Pulse Rate 110 H Pulse Rate [Apical] Pulse Rate from SpO2 Sensor Respiratory Rate 14 Respiratory Effort / Characteristics Respiratory Depth Blood Pressure 101/72 111/72 Blood Pressure [Right Arm] Blood Pressure Mean 81 85 Blood Pressure Mean [Right Arm] Pulse Oximetry 98 Oxygen Delivery Method Oxygen Flow Rate Sepsis Recent Fever Within 48 Hours Sepsis New/Unexplained Change in Mental Status Sepsis Action Taken by Nursing Pulse Oximetry Post Tiitration 05/31/22 17:40 05/31/22 17:45 05/31/22 17:45 Temperature Temperature Source Pulse Rate 112 H 108 H Pulse Rate [Apical] Pulse Rate from SpO2 Sensor 112 H 110 H Respiratory Rate 29 H 24 Respiratory Effort / Characteristics Respiratory Depth Blood Pressure 121/79 Blood Pressure [Right Arm] Blood Pressure Mean 93 Blood Pressure Mean [Right Arm] Pulse Oximetry 97 95 Oxygen Delivery Method Oxygen Flow Rate Sepsis Recent Fever Within 48 Hours Sepsis New/Unexplained Change in Mental Status Sepsis Action Taken by Nursing Pulse Oximetry Post Tiitration 05/31/22 17:51 05/31/22 17:51 05/31/22 17:55 Temperature Temperature Source Pulse Rate 112 H 109 H Pulse Rate [Apical] Pulse Rate from SpO2 Sensor 149 H Respiratory Rate 18 16 Respiratory Effort / Characteristics Respiratory Depth Blood Pressure 110/76 Blood Pressure [Right Arm] Blood Pressure Mean 87 Blood Pressure Mean [Right Arm] Pulse Oximetry 61 L Oxygen Delivery Method Oxygen Flow Rate Sepsis Recent Fever Within 48 Hours Sepsis New/Unexplained Change in Mental Status Sepsis Action Taken by Nursing Pulse Oximetry Post Tiitration 05/31/22 17:55 05/31/22 18:00 05/31/22 18:00 Temperature Temperature Source Pulse Rate 107 H Pulse Rate [Apical] Pulse Rate from SpO2 Sensor 107 H Respiratory Rate 24 Respiratory Effort / Characteristics Respiratory Depth Blood Pressure 97/67 L 116/72 Blood Pressure [Right Arm] Blood Pressure Mean 77 86 Blood Pressure Mean [Right Arm] Pulse Oximetry 97 Oxygen Delivery Method Oxygen Flow Rate Sepsis Recent Fever Within 48 Hours Sepsis New/Unexplained Change in Mental Status Sepsis Action Taken by Nursing Pulse Oximetry Post Tiitration 05/31/22 18:05 05/31/22 18:05 05/31/22 18:10 Temperature Temperature Source Pulse Rate 105 H Pulse Rate [Apical] Pulse Rate from SpO2 Sensor 135 H Respiratory Rate 22 Respiratory Effort / Characteristics Respiratory Depth Blood Pressure 117/74 102/66 Blood Pressure [Right Arm] Blood Pressure Mean 88 78 Blood Pressure Mean [Right Arm] Pulse Oximetry 93 Oxygen Delivery Method Oxygen Flow Rate Sepsis Recent Fever Within 48 Hours Sepsis New/Unexplained Change in Mental Status Sepsis Action Taken by Nursing Pulse Oximetry Post Tiitration 05/31/22 18:10 05/31/22 18:15 05/31/22 18:15 Temperature Temperature Source Pulse Rate 103 H 102 H Pulse Rate [Apical] Pulse Rate from SpO2 Sensor 104 H 97 H Respiratory Rate 21 17 Respiratory Effort / Characteristics Respiratory Depth Blood Pressure 101/68 Blood Pressure [Right Arm] Blood Pressure Mean 79 Blood Pressure Mean [Right Arm] Pulse Oximetry 94 96 Oxygen Delivery Method Oxygen Flow Rate Sepsis Recent Fever Within 48 Hours Sepsis New/Unexplained Change in Mental Status Sepsis Action Taken by Nursing Pulse Oximetry Post Tiitration 05/31/22 18:36 05/31/22 18:36 05/31/22 18:40 Temperature Temperature Source Pulse Rate 95 H 101 H Pulse Rate [Apical] Pulse Rate from SpO2 Sensor 103 H Respiratory Rate 21 28 H Respiratory Effort / Characteristics Respiratory Depth Blood Pressure 101/62 Blood Pressure [Right Arm] Blood Pressure Mean 75 Blood Pressure Mean [Right Arm] Pulse Oximetry 98 97 Oxygen Delivery Method Oxygen Flow Rate 3 Sepsis Recent Fever Within 48 Hours Sepsis New/Unexplained Change in Mental Status Sepsis Action Taken by Nursing Pulse Oximetry Post Tiitration 05/31/22 18:46 05/31/22 18:46 05/31/22 18:50 Temperature Temperature Source Pulse Rate 108 H 101 H Pulse Rate [Apical] Pulse Rate from SpO2 Sensor 109 H 100 H Respiratory Rate 27 H 20 Respiratory Effort / Characteristics Respiratory Depth Blood Pressure 92/48 L Blood Pressure [Right Arm] Blood Pressure Mean 62 Blood Pressure Mean [Right Arm] Pulse Oximetry 99 99 Oxygen Delivery Method Oxygen Flow Rate Sepsis Recent Fever Within 48 Hours Sepsis New/Unexplained Change in Mental Status Sepsis Action Taken by Nursing Pulse Oximetry Post Tiitration 05/31/22 19:00 05/31/22 19:01 05/31/22 19:01 Temperature Temperature Source Pulse Rate 92 H 95 H Pulse Rate [Apical] Pulse Rate from SpO2 Sensor Respiratory Rate 22 28 H Respiratory Effort / Characteristics Respiratory Depth Blood Pressure 111/78 Blood Pressure [Right Arm] Blood Pressure Mean 89 Blood Pressure Mean [Right Arm] Pulse Oximetry Oxygen Delivery Method Oxygen Flow Rate Sepsis Recent Fever Within 48 Hours Sepsis New/Unexplained Change in Mental Status Sepsis Action Taken by Nursing Pulse Oximetry Post Tiitration 05/31/22 19:10 05/31/22 19:15 05/31/22 19:15 Temperature Temperature Source Pulse Rate 99 H 113 H Pulse Rate [Apical] Pulse Rate from SpO2 Sensor Respiratory Rate 19 24 Respiratory Effort / Characteristics Respiratory Depth Blood Pressure 118/97 Blood Pressure [Right Arm] Blood Pressure Mean 104 Blood Pressure Mean [Right Arm] Pulse Oximetry Oxygen Delivery Method Oxygen Flow Rate Sepsis Recent Fever Within 48 Hours Sepsis New/Unexplained Change in Mental Status Sepsis Action Taken by Nursing Pulse Oximetry Post Tiitration 05/31/22 19:20 05/31/22 19:30 05/31/22 19:30 Temperature Temperature Source Pulse Rate 101 H 92 H Pulse Rate [Apical] Pulse Rate from SpO2 Sensor 104 H 90 Respiratory Rate 27 H 19 Respiratory Effort / Characteristics Respiratory Depth Blood Pressure 115/81 Blood Pressure [Right Arm] Blood Pressure Mean 92 Blood Pressure Mean [Right Arm] Pulse Oximetry 98 99 Oxygen Delivery Method Oxygen Flow Rate Sepsis Recent Fever Within 48 Hours Sepsis New/Unexplained Change in Mental Status Sepsis Action Taken by Nursing Pulse Oximetry Post Tiitration 05/31/22 19:40 05/31/22 19:45 05/31/22 19:45 Temperature Temperature Source Pulse Rate 86 86 Pulse Rate [Apical] Pulse Rate from SpO2 Sensor Respiratory Rate 22 21 Respiratory Effort / Characteristics Respiratory Depth Blood Pressure 106/68 Blood Pressure [Right Arm] Blood Pressure Mean 80 Blood Pressure Mean [Right Arm] Pulse Oximetry Oxygen Delivery Method Oxygen Flow Rate Sepsis Recent Fever Within 48 Hours Sepsis New/Unexplained Change in Mental Status Sepsis Action Taken by Nursing Pulse Oximetry Post Tiitration 05/31/22 19:50 05/31/22 20:00 05/31/22 20:00 Temperature Temperature Source Pulse Rate 88 89 Pulse Rate [Apical] Pulse Rate from SpO2 Sensor 90 Respiratory Rate 15 14 Respiratory Effort / Characteristics Respiratory Depth Blood Pressure 96/63 L Blood Pressure [Right Arm] Blood Pressure Mean 74 Blood Pressure Mean [Right Arm] Pulse Oximetry 98 Oxygen Delivery Method Oxygen Flow Rate Sepsis Recent Fever Within 48 Hours Sepsis New/Unexplained Change in Mental Status Sepsis Action Taken by Nursing Pulse Oximetry Post Tiitration 05/31/22 20:10 05/31/22 20:19 05/31/22 20:19 Temperature Temperature Source Pulse Rate 94 H 84 Pulse Rate [Apical] Pulse Rate from SpO2 Sensor 92 H 86 Respiratory Rate 25 H 18 Respiratory Effort / Characteristics Respiratory Depth Blood Pressure 104/70 Blood Pressure [Right Arm] Blood Pressure Mean 81 Blood Pressure Mean [Right Arm] Pulse Oximetry 99 99 Oxygen Delivery Method Oxygen Flow Rate Sepsis Recent Fever Within 48 Hours Sepsis New/Unexplained Change in Mental Status Sepsis Action Taken by Nursing Pulse Oximetry Post Tiitration 05/31/22 20:20 05/31/22 20:30 05/31/22 20:30 Temperature Temperature Source Pulse Rate 93 H 89 Pulse Rate [Apical] Pulse Rate from SpO2 Sensor 92 H Respiratory Rate 16 17 Respiratory Effort / Characteristics Respiratory Depth Blood Pressure 130/87 Blood Pressure [Right Arm] Blood Pressure Mean 101 Blood Pressure Mean [Right Arm] Pulse Oximetry 100 Oxygen Delivery Method Oxygen Flow Rate Sepsis Recent Fever Within 48 Hours Sepsis New/Unexplained Change in Mental Status Sepsis Action Taken by Nursing Pulse Oximetry Post Tiitration 05/31/22 20:40 05/31/22 20:42 05/31/22 20:46 Temperature Temperature Source Pulse Rate 86 89 Pulse Rate [Apical] Pulse Rate from SpO2 Sensor 87 94 H Respiratory Rate 12 Respiratory Effort / Characteristics Respiratory Depth Blood Pressure 92/80 L Blood Pressure [Right Arm] Blood Pressure Mean 84 Blood Pressure Mean [Right Arm] Pulse Oximetry 99 98 Oxygen Delivery Method Oxygen Flow Rate Sepsis Recent Fever Within 48 Hours Sepsis New/Unexplained Change in Mental Status Sepsis Action Taken by Nursing Pulse Oximetry Post Tiitration 05/31/22 21:01 05/31/22 21:15 05/31/22 21:28 Temperature Temperature Source Pulse Rate 99 H Pulse Rate [Apical] Pulse Rate from SpO2 Sensor Respiratory Rate 19 Respiratory Effort / Characteristics Respiratory Depth Blood Pressure 118/82 107/67 Blood Pressure [Right Arm] Blood Pressure Mean 94 80 Blood Pressure Mean [Right Arm] Pulse Oximetry Oxygen Delivery Method Oxygen Flow Rate Sepsis Recent Fever Within 48 Hours Sepsis New/Unexplained Change in Mental Status Sepsis Action Taken by Nursing Pulse Oximetry Post Tiitration 05/31/22 21:30 05/31/22 21:30 05/31/22 21:40 Temperature Temperature Source Pulse Rate 96 H 108 H Pulse Rate [Apical] Pulse Rate from SpO2 Sensor Respiratory Rate 23 18 Respiratory Effort / Characteristics Respiratory Depth Blood Pressure 109/72 Blood Pressure [Right Arm] Blood Pressure Mean 84 Blood Pressure Mean [Right Arm] Pulse Oximetry Oxygen Delivery Method Oxygen Flow Rate Sepsis Recent Fever Within 48 Hours Sepsis New/Unexplained Change in Mental Status Sepsis Action Taken by Nursing Pulse Oximetry Post Tiitration 05/31/22 21:41 05/31/22 21:45 05/31/22 22:00 Temperature Temperature Source Pulse Rate 113 H Pulse Rate [Apical] Pulse Rate from SpO2 Sensor Respiratory Rate 16 Respiratory Effort / Characteristics Respiratory Depth Blood Pressure 135/81 107/67 Blood Pressure [Right Arm] Blood Pressure Mean 99 80 Blood Pressure Mean [Right Arm] Pulse Oximetry Oxygen Delivery Method Oxygen Flow Rate Sepsis Recent Fever Within 48 Hours Sepsis New/Unexplained Change in Mental Status Sepsis Action Taken by Nursing Pulse Oximetry Post Tiitration 05/31/22 22:15 05/31/22 23:00 Temperature Temperature Source Pulse Rate Pulse Rate [Apical] 105 H Pulse Rate from SpO2 Sensor Respiratory Rate 16 Respiratory Effort / Characteristics Respiratory Depth Blood Pressure 113/69 Blood Pressure [Right Arm] 113/76 Blood Pressure Mean 83 Blood Pressure Mean [Right Arm] 88 Pulse Oximetry 98 Oxygen Delivery Method Nasal Cannula Oxygen Flow Rate 3 Sepsis Recent Fever Within 48 Hours Sepsis New/Unexplained Change in Mental Status Sepsis Action Taken by Nursing Pulse Oximetry Post Tiitration Physical Exam GENERAL: He is oriented to person, place, and time. He appears well-developed and well-nourished. He does not appear distressed. HENT: Exam performed. - Head: Normocephalic and atraumatic. - Right Ear: External ear normal. No mastoid tenderness. - Left Ear: External ear normal. No mastoid tenderness. - Mouth/Throat: The oropharynx is clear and moist. No trismus in the jaw. No dental abscesses or uvula swelling. No oropharyngeal exudate or tonsillar abscesses. EYES: Conjunctivae and EOM are normal. Pupils are equal, round, and reactive to light. Right eye exhibits no discharge. Left eye exhibits no discharge. No scleral icterus. NECK: Normal range of motion. Neck supple. No JVD present. CV: Normal rate, regular rhythm, normal heart sounds and intact distal pulses. There is no peripheral edema. Palpable radial pulses bue. PULM/CHEST: Effort normal and breath sounds normal. No respiratory distress. No stridor. He has no wheezes. He has no rales. - Chest Wall: He exhibits no tenderness. ABD: The abdomen is soft. Bowel sounds are normal. He has no distension. No mass is present. There is tenderness to palpation of the left lower quadrant. There is no rebound, no guarding, no 's sign and no tenderness at McBurney's point. Rovsig negative. MUSC/SKEL: Normal range of motion. There is no peripheral edema, tenderness or deformity. LYMPH: No cervical adenopathy. NEURO: He is alert and oriented to person, place, and time. He has normal strength. No cranial nerve deficit or sensory deficit. Coordination and gait normal. GCS eye subscore is 4. GCS verbal subscore is 5. GCS motor subscore is 6. Cerebellar tests wnl. SKIN: Skin is warm and dry. He is not diaphoretic. PSYCH: He has a normal mood and affect. Behavior is normal. Judgment and thought content normal. Course Course 1641: The patient was evaluated in room C10. A complete history and physical exam was performed Cardiac monitoring: An order was placed for continuous cardiac monitoring. The monitor shows a rate of 80 with sinus rhythm interpreted by me 1715:Called to bedside by nursing. Patient was in SVT. The at bedside asked for me to speak with the patient's daughter who is a nurse at [facility]. Patient's daughter initially declined all treatment with adenosine or cardioversion I explained to her that adenosine is first-line treatment for SVT with someone who is stable and then got her to agree. Adenosine 6 mg IV push was pushed on the patient. This resolved the SVT. Labs and imaging still pending. 1944: Vital signs stable. Labs show white blood cell count of 10.78. Hemoglob in 15.8. Coags within normal limits. Venous pH 7.34 venous PCO2 60 venous bicarb 32. Creatinine 1.46. CO2 36. BUN 25. 25.9. Patient not reporting any chest pain or difficulty breathing. Chest x-ray within normal limits. D-dimer negative. CT of the abdomen pelvis shows possible appendicitis. Patient not have any pain on palpation of the right lower quadrant pain was in the left lower quadrant. We will plan on admitting the patient to the medicine service. Joleen Moran ordered for the patient. Discussed the case with general surgery and and attending Dr. Blum. They agree that the patient should be admitted to the medical service given his SVT elevated troponin and pain is on the left lower quadrant right lower quadrant. General surgery will evaluate the patient. Discussed the case with hospitalist Dr. Paz who will evaluate the patient for admission. Administered Medications Fentanyl (Fentanyl 100 Mcg/Hr Tdsy) 100 mcg TD Q3D [facility] Stop: 06/14/22 20:59 Last Admin: 05/31/22 21:24 Dose: 100 mcg Documented By: MARIAN Miscellaneous (Check Fentanyl Patch Placement) 1 each N/A QS [facility] Stop: 07/01/22 00:00 Last Admin: 05/31/22 23:14 Dose: 1 each Documented By: DARRIUS Discontinued Medications Adenosine (Adenosine Iv Soln 3 Mg/Ml 2 Ml Vial) Confirm Administered Dose 18 mg IV .STK-MED ONE Stop: 05/31/22 17:00 Last Admin: 05/31/22 18:15 Dose: Not Given Documented By: CHECO Adenosine (Adenosine Iv Soln 3 Mg/Ml 2 Ml Vial) 6 mg IV NOW STA Stop: 05/31/22 18:12 Last Admin: 05/31/22 17:08 Dose: 6 mg Documented By: CHECO Aspirin (Aspirin 81 Mg Ectab) 81 mg PO NOW STA Stop: 05/31/22 20:34 Last Admin: 05/31/22 21:24 Dose: 81 mg Documented By: MARIAN Cyclobenzaprine HCl (Cyclobenzaprine Hcl 10 Mg Tab) 10 mg PO NOW STA Stop: 05/31/22 20:34 Last Admin: 05/31/22 21:24 Dose: 10 mg Documented By: MARIAN Sodium Chloride (Nss 1000ml) 500 mls @ 999 mls/hr IV .Q31M [facility] Stop: 05/31/22 17:30 Last Infusion: 05/31/22 17:41 Dose: 0 mls/hr Documented By: Admin: 05/31/22 17:10 Dose: 999 mls/hr Documented By: MARIAN Sodium Chloride (Nss 1000ml) 500 mls @ 999 mls/hr IV .Q31M ONE Stop: 05/31/22 18:41 Last Infusion: 05/31/22 18:11 Dose: 0 mls/hr Documented By: Admin: 05/31/22 17:41 Dose: 999 mls/hr Documented By: CHECO Ciprofloxacin (Cipro / D5w) 400 mg in 200 mls @ 200 mls/hr IV NOW STA Stop: 05/31/22 20:15 Last Infusion: 05/31/22 20:52 Dose: 0 mls/hr Documented By: Admin: 05/31/22 19:49 Dose: 200 mls/hr Documented By: MARIAN Metronidazole (Flagyl) 500 mg in 100 mls @ 100 mls/hr IV NOW STA Stop: 05/31/22 20:15 Last Infusion: 05/31/22 21:34 Dose: 0 mls/hr Documented By: Admin: 05/31/22 20:22 Dose: 100 mls/hr Documented By: MARIAN Ioversol (Optiray 350 100ml) 90 ml IV ONCE ONE Stop: 05/31/22 18:29 Last Admin: 05/31/22 18:29 Dose: 90 ml Documented By: ELIZABETH Lorazepam (Lorazepam 2 Mg/1 Ml Vial) Confirm Administered Dose 2 mg .ROUTE .STK- MED ONE Stop: 05/31/22 17:02 Last Admin: 05/31/22 17:47 Dose: Not Given Documented By: MARIAN Pramipexole Dihydrochloride (Pramipexole Dihydrochlo 0.5 Mg Tab) 0.5 mg PO NOW STA Stop: 05/31/22 20:34 Last Admin: 05/31/22 21:24 Dose: 0.5 mg Documented By: MARIAN Pravastatin Sodium (Pravastatin Sod 20 Mg Tab) 20 mg PO NOW STA Stop: 05/31/22 20:34 Last Admin: 05/31/22 21:24 Dose: 20 mg Documented By: MARGARITA Critical Care Time Critical Care Time: Yes Total Critical Care Time: 53 I have personally spent greater than 53 minutes of critical care time in the direct management of this patient. This includes bedside care, interpretation of diagnostic studies, and testing, discussion with consultants, patient, and family members, and other required patient management activities. This 53 minutes is in excess of all separately billable procedures. Medical Decision Making Laboratory Data Attestation: I reviewed the patient's lab results. 05/31/22 16:57 05/31/22 16:57 Lab Results 05/31/22 05/31/22 05/31/22 Range/Units 16:57 16:57 16:57 WBC 10.78 (4.8-10.8) K/ul RBC 4.90 (4.70-6.10) M/uL Hgb 15.8 (14.0-18.0) g/dl Hct 45.7 (42.0-52.0) % MCV 93.3 (80.0-100.0) fL MCH 32.2 (25.0-34.0) pg MCHC 34.6 (32.0-36.0) g/dL RDW Std Deviation 54.8 H (36.4-46.3) fL RDW Coeff of Netta 15.9 H (11.5-14.5) % Plt Count 344 (130-400) K/uL MPV 9.9 (9.4-12.4) fL Immature Gran % (Auto) 1.5 % Neut % (Auto) 63.2 % Lymph % (Auto) 21.2 % [place] % (Auto) 11.3 % Eos % (Auto) 1.9 % Baso % (Auto) 0.9 % Neut # (Auto) 6.81 H (1.40-6.50) K/uL Lymph # (Auto) 2.28 (1.2-3.4) K/uL [place] # (Auto) 1.22 H (0.11-0.59) K/uL Eos # (Auto) 0.21 (0-0.50) K/uL Baso # (Auto) 0.10 (0-0.2) K/uL Immature Gran # (Auto) 0.16 (0.01-0.20) K/uL PT Cancelled INR Cancelled APTT Cancelled PTT Ratio Cancelled D-Dimer (0-500) ug/L FEU VBG pH (7.36-7.41) VBG pCO2 (38-50) mmHg VBG pO2 mmHg VBG HCO3 mmol/L VBG O2 Saturation % VBG Base Excess mEq/L Sodium 138 (136-145) mmol/L Potassium 4.4 (3.5-5.1) mmol/L Chloride 102 (98-107) mmol/L Carbon Dioxide 36 H (21-32) mmol/L Anion Gap 0 L (3-11) BUN 25 H (6-23) mg/dl Creatinine 1.46 H (0.6-1.4) mg/dl Est Cr Clr Drug Dosing Not Reportable Est GFR ( Amer) 55.7 ml/min Est GFR (Non-Af Amer) 48.0 ml/min BUN/Creatinine Ratio 17.1 (10-20) Glucose 118 H (70-99(Fasting)) mg/dl Lactate (0.4-2.0) mmol/L Calcium 9.4 (8.5-10.1) mg/dl Magnesium 1.9 (1.7-2.4) mg/dl Total Bilirubin 0.9 (0.2-1.0) mg/dl Direct Bilirubin 0.2 (0-0.2) mg/dl AST 19 (13-39) U/L ALT 15 (7-52) U/L Alkaline Phosphatase 51 (34-104) U/L Troponin I High Sens 25.9 H (0-20) pg/ml Total Protein 7.5 (6.0-8.3) gm/dl Albumin 4.3 (3.4-5.0) gm/dl Lipase 27 (11-82) U/L Procalcitonin (0-0.5) ng/ml Urine Color Urine Appearance (Clear) Urine pH (4.5-7.5) Ur Specific [place] (1.000-1.030) Urine Protein (Negative) Urine Glucose (UA) (Negative) Urine Ketones (Negative) Urine Blood (Negative) Urine Nitrite (Negative) Urine Bilirubin (Negative) Urine Urobilinogen (Negative) Ur Leukocyte Esterase (Negative) SARS-CoV-2, RNA, NAAT (NEGATIVE) 05/31/22 05/31/22 05/31/22 Range/Units 16:57 16:57 16:57 WBC (4.8-10.8) K/ul RBC (4.70-6.10) M/uL Hgb (14.0-18.0) g/dl Hct (42.0-52.0) % MCV (80.0-100.0) fL MCH (25.0-34.0) pg MCHC (32.0-36.0) g/dL RDW Std Deviation (36.4-46.3) fL RDW Coeff of Netta (11.5-14.5) % Plt Count (130-400) K/uL MPV (9.4-12.4) fL Immature Gran % (Auto) % Neut % (Auto) % Lymph % (Auto) % [place] % (Auto) % Eos % (Auto) % Baso % (Auto) % Neut # (Auto) (1.40-6.50) K/uL Lymph # (Auto) (1.2-3.4) K/uL [place] # (Auto) (0.11-0.59) K/uL Eos # (Auto) (0-0.50) K/uL Baso # (Auto) (0-0.2) K/uL Immature Gran # (Auto) (0.01-0.20) K/uL PT 10.9 INR 1.0 APTT 24.2 PTT Ratio 0.9 D-Dimer 350 (0-500) ug/L FEU VBG pH (7.36-7.41) VBG pCO2 (38-50) mmHg VBG pO2 mmHg VBG HCO3 mmol/L VBG O2 Saturation % VBG Base Excess mEq/L Sodium (136-145) mmol/L Potassium (3.5-5.1) mmol/L Chloride (98-107) mmol/L Carbon Dioxide (21-32) mmol/L Anion Gap (3-11) BUN (6-23) mg/dl Creatinine (0.6-1.4) mg/dl Est Cr Clr Drug Dosing Est GFR ( Amer) ml/min Est GFR (Non-Af Amer) ml/min BUN/Creatinine Ratio (10-20) Glucose (70-99(Fasting)) mg/dl Lactate 1.5 (0.4-2.0) mmol/L Calcium (8.5-10.1) mg/dl Magnesium (1.7-2.4) mg/dl Total Bilirubin (0.2-1.0) mg/dl Direct Bilirubin (0-0.2) mg/dl AST (13-39) U/L ALT (7-52) U/L Alkaline Phosphatase (34-104) U/L Troponin I High Sens (0-20) pg/ml Total Protein (6.0-8.3) gm/dl Albumin (3.4-5.0) gm/dl Lipase (11-82) U/L Procalcitonin < 0.05 (0-0.5) ng/ml Urine Color Urine Appearance (Clear) Urine pH (4.5-7.5) Ur Specific [place] (1.000-1.030) Urine Protein (Negative) Urine Glucose (UA) (Negative) Urine Ketones (Negative) Urine Blood (Negative) Urine Nitrite (Negative) Urine Bilirubin (Negative) Urine Urobilinogen (Negative) Ur Leukocyte Esterase (Negative) SARS-CoV-2, RNA, NAAT (NEGATIVE) 05/31/22 05/31/22 05/31/22 Range/Units 17:25 19:54 20:15 WBC (4.8-10.8) K/ul RBC (4.70-6.10) M/uL Hgb (14.0-18.0) g/dl Hct (42.0-52.0) % MCV (80.0-100.0) fL MCH (25.0-34.0) pg MCHC (32.0-36.0) g/dL RDW Std Deviation (36.4-46.3) fL RDW Coeff of Netta (11.5-14.5) % Plt Count (130-400) K/uL MPV (9.4-12.4) fL Immature Gran % (Auto) % Neut % (Auto) % Lymph % (Auto) % [place] % (Auto) % Eos % (Auto) % Baso % (Auto) % Neut # (Auto) (1.40-6.50) K/uL Lymph # (Auto) (1.2-3.4) K/uL [place] # (Auto) (0.11-0.59) K/uL Eos # (Auto) (0-0.50) K/uL Baso # (Auto) (0-0.2) K/uL Immature Gran # (Auto) (0.01-0.20) K/uL PT INR APTT PTT Ratio D-Dimer (0-500) ug/L FEU VBG pH 7.34 L (7.36-7.41) VBG pCO2 60 H (38-50) mmHg VBG pO2 28 mmHg VBG HCO3 32 mmol/L VBG O2 Saturation < 60.0 % VBG Base Excess 4.8 mEq/L Sodium (136-145) mmol/L Potassium (3.5-5.1) mmol/L Chloride (98-107) mmol/L Carbon Dioxide (21-32) mmol/L Anion Gap (3-11) BUN (6-23) mg/dl Creatinine (0.6-1.4) mg/dl Est Cr Clr Drug Dosing Est GFR ( Amer) ml/min Est GFR (Non-Af Amer) ml/min BUN/Creatinine Ratio (10-20) Glucose (70-99(Fasting)) mg/dl Lactate (0.4-2.0) mmol/L Calcium (8.5-10.1) mg/dl Magnesium (1.7-2.4) mg/dl Total Bilirubin (0.2-1.0) mg/dl Direct Bilirubin (0-0.2) mg/dl AST (13-39) U/L ALT (7-52) U/L Alkaline Phosphatase (34-104) U/L Troponin I High Sens (0-20) pg/ml Total Protein (6.0-8.3) gm/dl Albumin (3.4-5.0) gm/dl Lipase (11-82) U/L Procalcitonin (0-0.5) ng/ml Urine Color Yellow Urine Appearance Clear (Clear) Urine pH 7.0 (4.5-7.5) Ur Specific [place] 1.032 H (1.000-1.030) Urine Protein Negative (Negative) Urine Glucose (UA) Negative (Negative) Urine Ketones Negative (Negative) Urine Blood Negative (Negative) Urine Nitrite Negative (Negative) Urine Bilirubin Negative (Negative) Urine Urobilinogen Negative (Negative) Ur Leukocyte Esterase Negative (Negative) SARS-CoV-2, RNA, NAAT NEGATIVE (NEGATIVE) Imaging Data Attestation: I personally reviewed and interpreted this imaging study as follows: My Impression: Chest x-ray negative. Airway clear. No pneumothorax. No consolidation. No cardiomegaly or cephalization.. No free air under the diaphragm. No fractures of the skeletal structures. Radiologist's Impression: Abdomen/Pelvis CT 05/31/22 16:49 CT SCAN OF THE ABDOMEN AND PELVIS WITH IV CONTRAST CLINICAL HISTORY: Generalized abdominal pain. COMPARISON STUDY: Abdominal CT dated 06/26/2018. TECHNIQUE: Following the IV administration of 90 cc of Optiray 350, CT scan of the abdomen and pelvis is performed from the lung bases to the proximal femora. Images are reviewed in the axial, sagittal, and coronal planes. IV contrast was administered without complication. A dose lowering technique was utilized adhering to the principles of ALARA. CT DOSE: 607.38 mGy.cm FINDINGS: Lung bases: The heart is normal in size and without pericardial effusion. The coronary arteries are densely calcified. A small hiatal hernia is noted. A 5 mm pulmonary nodule in the lingula seen on image #36 is unchanged from 2019. A 5 mm pleural-based nodule at the right lung base is seen on image #104. This could not be assessed previously due to consolidation and pleural effusion. Linear scarring/atelectasis is present in both lungs. There is no airspace consolidation typical for pneumonia or pleural effusion on today's examination. Liver: The contrast-enhanced liver is normal in size, contour, and attenuation. There is no intrahepatic biliary ductal dilatation. The hepatic veins and portal veins are patent. Gallbladder: Small gallstones are suspected. Spleen: Normal in size and attenuation. Pancreas: Unremarkable. Adrenal glands: Unremarkable. Kidneys: The contrast enhanced kidneys are normal in size and without hydronephrosis. The kidneys enhance symmetrically. Abdominal vasculature: The abdominal aorta is normal in course and caliber noting mild to moderate atherosclerotic calcification. Bowel: There is moderate to severe constipation. No bowel obstruction is seen. There are scattered colonic diverticula without CT evidence of acute diverticulitis. The appendix is dilated, measuring to 10 mm as seen on image #3 02. There is no gas within the lumen and the wall appears mildly thickened. Question faint perivascular infiltration. Appendiceal caliber represents a significant change from 2019. Peritoneum: There is no intraperitoneal free air or abdominal ascites. There is a small fat-containing umbilical hernia. Lymphadenopathy: A prominent left pelvic sidewall node measures 9 mm in short axis. This is unchanged from 2019. Pelvic viscera: The prostate gland is enlarged and heterogeneous noting median lobe hypertrophy. The bladder is mildly distended but otherwise normal in appearance. Skeletal structures: The skeletal structures are osteopenic. There is moderate to advanced lumbosacral spondylosis. No lytic or blastic lesions are seen. There are chronic/healed right-sided rib fractures. IMPRESSION: 1. The appendix is dilated measuring up to 10 mm, and the wall appears mildly thickened. There may be faint periappendiceal infiltration, and the caliber of the appendix has significantly changed as compared to 06/26/2018. Mild/early acute appendicitis is not excluded. Clinical correlation will be essential and surgical assessment is advised. If this does not fit the clinical presentation consider short-term CT follow-up. 2. Moderate to severe constipation. 3. Coronary artery calcification. 4. Additional findings as above. ACT 112: Negative or not required by law. Electronically signed by: Kody Leonardo M.D. 05/31/2022 6:58 PM Chest X-Ray 05/31/22 16:49 XR chest 1V portable HISTORY: 71 years-old Male Sepsis acute sepsis COMPARISON: 02/24/2022 TECHNIQUE: AP view the chest FINDINGS: Cardiomediastinal and hilar silhouettes are unchanged. Chronic right hemidi aphragmatic elevation. No pneumothorax, large pleural effusion or lobar airspace consolidation. Mild chronic interstitial coarsening. Degenerative changes of the shoulders and spine. IMPRESSION: No acute process. ACT 112: Negative or not required by law. The above report was generated using voice recognition software. It may contain grammatical, syntax or spelling errors. Electronically signed by: Marco Stewart M.D. 05/31/2022 6:02 PM ECG Data Attestation: I personally reviewed and interpreted this ECG as follows: Additional Comments: EKG #1 at 1656: SVT with a rate of 161. QRS [address] elevation or ST depression. EKG #2 at 1707: SVT with a rate of 157. QRS [address] elevation or ST depression. EKG #3 at 1708 status post adenosine 6 mg IV push: Sinus tachycardia with rate of 121. [place] QRS and QTc intervals within normal limits. No ST elevation or ST depression. EKG #4 at 1710: Sinus tachycardia with rate of 113. [place] interval 214. QRS QTc intervals are within normal limits. No ST elevation ST depression. [facility] Narrative 1641: The patient was evaluated in room C10. A complete history and physical exam was performed Cardiac monitoring: An order was placed for continuous cardiac monitoring. The monitor shows a rate of 80 with sinus rhythm interpreted by me 1715:Called to bedside by nursing. Patient was in SVT. The at bedside asked for me to speak with the patient's daughter who is a nurse at [facility] [facility]. Patient's daughter initially declined all treatment with adenosine or cardioversion I explained to her that adenosine is first-line treatment for SVT with someone who is stable and then got her to agree. Adenosine 6 mg IV push was pushed on the patient. This resolved the SVT. Labs and imaging still pending. 194: Vital signs stable. Labs show white blood cell count of 10.78. Hemoglobin 15.8. Coags within normal limits. Venous pH 7.34 venous PCO2 60 venous bicarb 32. Creatinine 1.46. CO2 36. BUN 25. 25.9. Patient not reporting any chest pain or difficulty breathing. Chest x-ray within normal limits. D-dimer negative. CT of the abdomen pelvis shows possible appendicitis. Patient not have any pain on palpation of the right lower quadrant pain was in the left lower quadrant. We will plan on admitting the patient to the medicine service. Joleen Moran ordered for the patient. Discussed the case with general surgery and and attending Dr. Blum. They agree that the patient should be admitted to the medical service given his SVT elevated troponin and pain is on the left lower quadrant right lower quadrant. General surgery will evaluate the patient. Discussed the case with hospitalist Dr. Paz who will evaluate the patient for admission. Impression & Plan SVT (supraventricular tachycardia), Abdominal pain, Elevated troponin Discharge Plan Visit Data Chief Complaint: Hypotension Stated Complaint: REF BY DOC, HYPOTENSION, TACHYCARDIA ED Provider: James Huitron Discharge Problem: SVT (supraventricular tachycardia), Abdominal pain, Elevated troponin Patient Disposition: Admitted As Inpatient Forms Stand Alone Forms: [facility] Prescriptions Prescriptions: No Action alfuzosin 10 mg tablet extended release 24 hr 10 mg PO HS Rx Instructions: administer after the same meal each day pramipexole 0.5 mg tablet 0.5 mg PO HS cyclobenzaprine 10 mg tablet 10 mg PO HS loratadine [Claritin] 10 mg tablet 10 mg PO DAILY PRN (Reason: Congestion) ondansetron 4 mg tablet,disintegrating 4 mg PO Q8H PRN (Reason: Nausea And Vomiting) ferrous sulfate 325 mg (65 mg iron) tablet 325 mg PO Q OTHER DAY folic acid 1 mg tablet 1 mg PO HS ascorbic acid (vitamin C) 500 mg tablet 250 mg PO HS naloxegol 25 mg tablet 25 mg PO QAM Rx Instructions: must be taken on empty stomach; no food 1 hr after or 2-3 hrs before dose gabapentin 300 mg capsule 300 mg PO TID Qty: 90 3RF Rx Instructions: PER PT'S SPOUSE "HAVE NOT STARTED YET, DID NOT GET FROM CT YET". cholecalciferol (vitamin D3) 25 mcg (1,000 unit) capsule 2,000 units PO HS famotidine 20 mg tablet 20 mg PO HS omeprazole 20 mg capsule,delayed release(DR/EC) 20 mg PO HS lisinopril 5 mg tablet 5 mg PO HS dicyclomine 10 mg capsule 10 mg PO BID PRN (Reason: ABD PAIN) fentanyl 100 mcg/hr patch 72 hour 100 mcg transdermal Q48H Rx Instructions: PER PT "TOOK OFF THIS AM". aspirin [Alice Low Dose Aspirin] 81 mg tablet,delayed release (DR/EC) 81 mg PO HS testosterone [AndroGel] 20.25 mg/1.25 gram (1.62 %) gel in metered-dose pump 2 pump topical HS Rx Instructions: apply 1 pump amount over max area of each upper arm and shoulder pravastatin 40 mg Tablet 20 mg PO HS cyanocobalamin (vitamin B-12) 2,500 mcg tablet 2,500 mcg PO HS Referrals Referrals: Francis Rubin, EVS ATTENDANT-C [Primary Care Provider] -
[2022-06-01] MEDS ORDERED: CHECK fentaNYL PATCH PLACEMENT SCH
[2022-06-01] MEDS ORDERED: diphenhydrAMINE Capsule 25 MG CAP PO STA (00:55)
[2022-06-01] MEDS ORDERED: DICYCLOMINE HCL 10 MG CAP PO PRN (01:34)
[2022-06-01] MEDS ORDERED: ACETAMINOPHEN 325 MG TAB PO PRN (01:34)
[2022-06-01] MEDS: FAMOTIDINE 20 MG TAB PO SCH ×2 (02:09→20:24)
[2022-06-01] MEDS: LACTATED RINGER'S 1,000 ML IV SCH ×2 (02:10→09:15)
[2022-06-01] MEDS: ALFUZOSIN HCL 10 MG TAB PO SCH ×2 (02:10→20:25)
[2022-06-01 05:03] LABS: Hematocrit (blood only) 41.4 % (42.0-52.0); Mean Corpuscular Hemoglobin 32.2 pg (25.0-34.0); Mean Corpuscular Hgb Conc 33.8 g/dL (32.0-36.0); Mean Corpuscular Volume 95.2 fL (80.0-100.0); Mean Platelet Volume 9.8 fL (9.4-12.4); Platelet Count 294 K/uL (130-400); RDW Coefficient of Variation 16.2 % (11.5-14.5); RDW Standard Deviation 57.1 fL (36.4-46.3); Red Blood Count 4.35 M/uL (4.70-6.10); White Blood Count 10.52 K/ul (4.8-10.8)
[2022-06-01 05:22] LABS: BUN Creatinine Ratio 19.2 (10-20); Calcium 8.5 mg/dl (8.5-10.1); Creatinine Clr Calc Pharmacy 75.6 ml/min; Est GFR (African American) 83.9 ml/min; Est GFR (Non-African American) 72.4 ml/min; Potassium 4.7 mmol/L (3.5-5.1)
[2022-06-01 05:31] LABS: Troponin I High Sensitivity 41.8 pg/ml (0-20)
[2022-06-01] MEDS: metroNIDAZOLE 500 MG/100 ML BAG IV SCH ×2 (06:44→17:02)
[2022-06-01] MEDS ORDERED: CIPROFLOXACIN / D5W 400 MG/200 ML BAG IV SCH (08:00)
--- NOTE | 2022-06-01 08:40 | Electrocardiogram Report ---
Test Reason : Blood Pressure : / mmHG Vent. Rate : 161 BPM Atrial Rate : 166 BPM P-R Int : 000 ms QRS Dur : 092 ms QT Int : 274 ms P-R-T Axes : 000 000 046 degrees QTc Int : 448 ms Supraventricular tachycardia (likely A-V latricia re-entrant mechanism) Abnormal ECG When compared with ECG of 22-FEB-2022 12:35, Supraventricular tachycardia now present Vent. rate has increased BY 53 BPM Confirmed by Manoj Mack ([id number]) on 06/01/2022 8:40:10 AM Referred By: REFERRED SELF Confirmed By:Manoj Mack
[2022-06-01] MEDS: CHECK fentaNYL PATCH PLACEMENT SCH ×3 (09:08→22:36)
[2022-06-01] MEDS: POLYETHYLENE (MIRALAX) 17 GM PACK PO SCH (09:09)
[2022-06-01] MEDS: DOCUSATE SODIUM/SENNA 50/8.6MG TAB PO SCH (09:09)
--- NOTE | 2022-06-01 09:11 | Hospitalist Progress Note ---
Date of Service June 01, 2022 Assessment & Plan (1) SVT (supraventricular tachycardia): Plan: 71yo male presenting with complaint of episodic tachycardia with associated hypotension. He reports heart rates at home measuring 170-180 on occasion with blood pressure as low as 60/40. These episodes are associated with feeling weak and sluggish. He did have an episode of SVT in the ER with blood pressure of 78/58 which resolved with Adenosine 6mg IV. Suspect patient is having episodes of SVT with associated hypotension. Presently he is in sinus tachycardia with adequate blood pressure. -Continue to monitor on med/telemetry -Random cortisol and TSH normal -Cardiology consultation appreciated and recommended low dose Metoprolol tartate 25mg BID (2) Appendicitis: Plan: Findings on CT as above with concern for appendiceal inflammation. Patient is afebrile, no leukocytosis, procalcitonin is negative. Examination of the RLQ is benign including negative -General Surgery consultation appreciated -Continue Ciprofloxacin and Flagyl per surgery, possibly stop tomorrow if continues to have no further abdominal pain and tolerating diet with normal labs -Zofran as needed for nausea - Continue to monitor abdominal exams (3) Chronic pain: Plan: Patient with chronic back pain. He follows with pain clinic. Presently on Fentanyl TD 100mcg. -Continue Fentanyl TD 100mcg -Constipation noted on imaging - Bowel regimen - Miralax and Dulcolax/Senna -Continue Bentyl 10mg po BID PRN abdominal pain -Continue Flexeril 10mg po qHS -Patient was recently prescribed Gabapentin 300mg po TID for neuropathic pain but has not yet started. Will hold for now (4) RLS (restless legs syndrome): Plan: Chronic. Fairly well controlled with Pramipexole -Continue Pramipexole 0.5mg po qHS (5) Pituitary microadenoma: Plan: Patient follows with Dr. Aguilar and Dr. Reeves No acute issues (6) Severe obstructive sleep apnea: Plan: Chronic. Patient is compliant with his CPAP -Continue CPAP 6cmH2O with 3L O2 qHS (7) GERD (gastroesophageal reflux disease): Plan: Chronic -Continue Pepcid 20mg po qHS (8) Hypertension: Plan: Patient with episodes of hypotension. He is on Lisinopril 5mg po qHS -Hold Lisinopril -Monitor BP -Cardiology consultation appreciated and recommended low dose Metoprolol tartate 25mg BID Plan F/E/N -LR at 125mL/hr x 2 liters in ER, monitor electrolytes, heart healthy diet as tolerated Ppx -Lovenox Code - Full Dispo - Admit to medical with telemetry Admission and Anticipated Discharge Date Admission Date: May 31, 2022 Subjective Patient was awake in bed and denied any further abdominal pain. He states he came to the ER due to feeling weak and sluggish. He states he began getting his vitals and noticed he had low BPs 60/40s and elevated pulse 170-180s. Currently patient was resting in bed and denied any pain, except his normal chronic back pain. He tells me that he uses a fentanyl patch daily. Per nursing last night an opened pill bottle of oxycontin with several ills was found in patient's bed. Security cam and took the pills. Patient denies any illicit or street drugs, ETOH or tobacco use. I reviewed the PDMP and patient has appropriate monthly Fentanyl patches. UDS was sent this AM after hearing of the pills in the bed. UDS was negative. Review of Systems Review of Systems: Patient denies any abdominal pain, nausea, vomiting or diarrhea. He denies any chest pain, dyspnea or SOB. All other ROS negative unless stated above. Physical Exam Constitutional: WD/WN, vitals as above Neck: trachea midline, no thyromegaly Respiratory: normal respiratory effort, lungs clear to auscultation Cardiovascular: Rate/Rhythm: regular rate, regular rhythm and + tachycardic Gastrointestinal (Abdomen): normal bowel sounds, soft, nontender, no hepatosplenomegaly Psychiatric: Orientation: alert and oriented x 3 Apperance: + disheveled Results & Data Results & Data ([facility]) Vital Signs (Past 12 Hours) Vital Signs Pulse Pulse Resp BP BP Pulse Ox O2 Del Method 06/01/22 07:34 96 H 24 102/80 97 BiPAP 06/01/22 02:31 98 H 16 102/73 92 CPAP 06/01/22 02:10 91 H 19 95 06/01/22 02:15 87 16 98/72 L 92 CPAP 06/01/22 01:36 97 H 16 113/50 L 94 Oxymask 06/01/22 01:10 90 16 108/63 94 Oxymask 06/01/22 00:06 101 H 20 106/68 92 Nasal Cannula 02/08/23 23:00 105 H 16 113/76 98 Nasal Cannula 05/31/22 22:15 113/69 05/31/22 22:00 107/67 05/31/22 21:45 135/81 05/31/22 21:41 113 H 16 05/31/22 21:40 108 H 18 05/31/22 21:30 96 H 23 05/31/22 21:30 109/72 05/31/22 21:28 99 H 19 05/31/22 21:15 107/67 O2 Flow Rate 06/01/22 07:34 06/01/22 02:31 06/01/22 02:10 3 06/01/22 02:15 06/01/22 01:36 3 06/01/22 01:10 3 06/01/22 00:06 3 05/31/22 23:00 3 05/31/22 22:15 05/31/22 22:00 05/31/22 21:45 05/31/22 21:41 05/31/22 21:40 05/31/22 21:30 05/31/22 21:30 05/31/22 21:28 05/31/22 21:15 Laboratory Results Abnormal lab results 05/31/22 05/31/22 05/31/22 Range/Units 16:57 16:57 17:25 RBC (4.70-6.10) M/uL Hct (42.0-52.0) % RDW Std Deviation 54.8 H (36.4-46.3) fL RDW Coeff of Netta 15.9 H (11.5-14.5) % Neut # (Auto) 6.81 H (1.40-6.50) K/uL Weakley # (Auto) 1.22 H (0.11-0.59) K/uL VBG pH 7.34 L (7.36-7.41) VBG pCO2 60 H (38-50) mmHg Carbon Dioxide 36 H (21-32) mmol/L Anion Gap 0 L (3-11) BUN 25 H (6-23) mg/dl Creatinine 1.46 H (0.6-1.4) mg/dl Glucose 118 H (70-99(Fasting)) mg/dl Troponin I High Sens 25.9 H (0-20) pg/ml Ur Specific Brice (1.000-1.030) 05/31/22 06/01/22 06/01/22 Range/Units 19:54 04:34 04:34 RBC 4.35 L (4.70-6.10) M/uL Hct 41.4 L (42.0-52.0) % RDW Std Deviation 57.1 H (36.4-46.3) fL RDW Coeff of Netta 16.2 H (11.5-14.5) % Neut # (Auto) (1.40-6.50) K/uL Weakley # (Auto) (0.11-0.59) K/uL VBG pH (7.36-7.41) VBG pCO2 (38-50) mmHg Carbon Dioxide (21-32) mmol/L Anion Gap (3-11) BUN (6-23) mg/dl Creatinine (0.6-1.4) mg/dl Glucose 108 H (70-99(Fasting)) mg/dl Troponin I High Sens 41.8 H D (0-20) pg/ml Ur Specific Brice 1.032 H (1.000-1.030) Diagnostic Findings Abdomen/Pelvis CT 05/31/22 16:49 CT SCAN OF THE ABDOMEN AND PELVIS WITH IV CONTRAST CLINICAL HISTORY: Generalized abdominal pain. COMPARISON STUDY: Abdominal CT dated 06/26/2018. TECHNIQUE: Following the IV administration of 90 cc of Optiray 350, CT scan of the abdomen and pelvis is performed from the lung bases to the proximal femora. Images are reviewed in the axial, sagittal, and coronal planes. IV contrast was administered without complication. A dose lowering technique was utilized adhering to the principles of ALARA. CT DOSE: 607.38 mGy.cm FINDINGS: Lung bases: The heart is normal in size and without pericardial effusion. The coronary arteries are densely calcified. A small hiatal hernia is noted. A 5 mm pulmonary nodule in the lingula seen on image #36 is unchanged from 2019. A 5 mm pleural-based nodule at the right lung base is seen on image #104. This could not be assessed previously due to consolidation and pleural effusion. Linear scarring/atelectasis is present in both lungs. There is no airspace consolidation typical for pneumonia or pleural effusion on today's examination. Liver: The contrast-enhanced liver is normal in size, contour, and attenuation. There is no intrahepatic biliary ductal dilatation. The hepatic veins and portal veins are patent. Gallbladder: Small gallstones are suspected. Spleen: Normal in size and attenuation. Pancreas: Unremarkable. Adrenal glands: Unremarkable. Kidneys: The contrast enhanced kidneys are normal in size and without hydronephrosis. The kidneys enhance symmetrically. Abdominal vasculature: The abdominal aorta is normal in course and caliber noting mild to moderate atherosclerotic calcification. Bowel: There is moderate to severe constipation. No bowel obstruction is seen. There are scattered colonic diverticula without CT evidence of acute diverticulitis. The appendix is dilated, measuring to 10 mm as seen on image #302. There is no gas within the lumen and the wall appears mildly thickened. Question faint perivascular infiltration. Appendiceal caliber represents a significant change from 2019. Peritoneum: There is no intraperitoneal free air or abdominal ascites. There is a small fat-containing umbilical hernia. Lymphadenopathy: A prominent left pelvic sidewall node measures 9 mm in short axis. This is unchanged from 2019. Pelvic viscera: The prostate gland is enlarged and heterogeneous noting median lobe hypertrophy. The bladder is mildly distended but otherwise normal in appearance. Skeletal structures: The skeletal structures are osteopenic. There is moderate to advanced lumbosacral spondylosis. No lytic or blastic lesions are seen. There are chronic/healed right-sided rib fractures. IMPRESSION: 1. The appendix is dilated measuring up to 10 mm, and the wall appears mildly thickened. There may be faint periappendiceal infiltration, and the caliber of the appendix has significantly changed as compared to 06/26/2018. Mild/early acute appendicitis is not excluded. Clinical correlation will be essential and surgical assessment is advised. If this does not fit the clinical presentation consider short-term CT follow-up. 2. Moderate to severe constipation. 3. Coronary artery calcification. 4. Additional findings as above. ACT 112: Negative or not required by law. Electronically signed by: Kody Leonardo M.D. 05/31/2022 6:58 PM Chest X-Ray 05/31/22 16:49 XR chest 1V portable HISTORY: 71 years-old Male Sepsis acute sepsis COMPARISON: 02/24/2022 TECHNIQUE: AP view the chest FINDINGS: Cardiomediastinal and hilar silhouettes are unchanged. Chronic right hemidiaphragmatic elevation. No pneumothorax, large pleural effusion or lobar airspace consolidation. Mild chronic interstitial coarsening. Degenerative changes of the shoulders and spine. IMPRESSION: No acute process. ACT 112: Negative or not required by law. The above report was generated using voice recognition software. It may contain grammatical, syntax or spelling errors. Electronically signed by: Marco Stewart M.D. 05/31/2022 6:02 PM PG Care Time/CCT Total # of Minutes Spent Total Time Spent with Patient: Total time spent is greater than 50% in coordination of care (as documented) at patient's floor/unit and/or counseling patient: Coding Level of Care Code 00984 SUB INP/OBS CARE 2/35MIN Diagnoses SVT (supraventricular tachycardia) I47.1 Appendicitis K37 Chronic pain G89.29 RLS (restless legs syndrome) G25.81 Pituitary microadenoma D35.2 Severe obstructive sleep apnea G47.33 GERD (gastroesophageal reflux disease) K21.9 Hypertension I10 Hypertension type: essential hypertension (1) Hypertension Hypertension type: essential hypertension Qualified Code(s): I10 - Essential (primary) hypertension
[2022-06-01] MEDS: ENOXAPARIN INJ 40 MG/0.4 ML SYR SQ SCH (09:15)
--- NOTE | 2022-06-01 10:45 | Surgery Progress Note ---
Date of Service June 01, 2022 Assessment & Plan (1) Abdominal pain: Plan: Patient here with tachycardia and hypotension. cardiology consult pending a CT a/p was performed yesterday that revealed evidence of a mildly dilated appendix with faint periappendiceal infiltation WBC 10.5...he is afebrile On exam patient's abdomen is soft, non distended, only mild discomfort elicited in the lower abdomen he is tolerating a diet plan to continue abx for questionable appendicitis and allow him to recover from his acute cardiac issues if worsening abdominal exam/symptoms concerning for acute appendicitis can repeat imaging Admission and Anticipated Discharge Date Admission Date: May 31, 2022 Supervising Physician Co-Signing Physician Notes Patient seen and examined, labs reviewed, agree with above. 71-year-old male admitted for cardiac issues with SVT, some belly pain in the left lower quadrant with CT that was concerning for acute appendicitis. He continues to note minimal abdominal pain. On exam he is afebrile with stable vitals. His abdomen is soft, nontender, nondistended. Specifically no right lower quadrant tenderness. WBC unremarkable. Doubt this is acute appendicitis, but we are covering with antibiotics. There is no surgical intervention planned at this time. Patient may have a regular diet from surgery standpoint. Surgery will follow peripherally, call with questions or concerns Subjective Patient sitting up at the edge of the bed wearing his Bipap. Has been tolerating a diet. Says his abdomen feels the same as yesterday. Some mild nausea after eating, which he says is not new to him. Physical Exam Physical Exam: awake, but drowsy appearing, hard to keep his eyes ope Results & Data ([facility]) Vital Signs (Past 12 Hours) Vital Signs Pulse Pulse Resp BP Pulse Ox O2 Del Method O2 Flow Rate 06/01/22 07:34 96 H 24 102/80 97 BiPAP 06/01/22 02:31 98 H 16 102/73 92 CPAP 06/01/22 02:10 91 H 19 95 3 06/01/22 02:15 87 16 98/72 L 92 CPAP 06/01/22 01:36 97 H 16 113/50 L 94 Oxymask 3 06/01/22 01:10 90 16 108/63 94 Oxymask 3 06/01/22 00:06 101 H 20 106/68 92 Nasal Cannula 3 05/31/22 23:00 105 H 16 113/76 98 Nasal Cannula 3 PG Care Time/CCT Total # of Minutes Spent Total Time Spent with Patient: Total time spent is greater than 50% in coordination of care (as documented) at patient's floor/unit and/or counseling patient: Coding Level of Care Code 21036 SUB INP/OBS CARE 1/25MIN Diagnoses Abdominal pain R10.9 Abdominal location: unspecified location (1) Abdominal pain Abdominal location: unspecified location Qualified Code(s): R10.9 - Unspecified abdominal pain
[2022-06-01 11:41] LABS: Amphetamines+Metham, Urine Neg (Neg); Barbiturates, Urine Neg (Neg); Benzodiazepine, Urine Neg (Neg); Cocaine, Urine Neg (Neg); MDMA (Ecstacy), Urine Neg (Neg); Methadone, Urine Neg (Neg); Opiate, Urine Neg (Neg); Phencyclidine, Urine Neg (Neg)
--- NOTE | 2022-06-01 12:11 | Electrocardiogram Report ---
Test Reason : Blood Pressure : / mmHG Vent. Rate : 157 BPM Atrial Rate : 163 BPM P-R Int : 000 ms QRS Dur : 096 ms QT Int : 274 ms P-R-T Axes : 000 014 048 degrees QTc Int : 442 ms Supraventricular tachycardia Abnormal ECG When compared with ECG of 31-MAY-2022 16:56, No significant change was found Confirmed by Manoj Mack ([id number]) on 06/01/2022 12:10:45 PM Referred By: REFERRED SELF Confirmed By:Manoj Mack
--- NOTE | 2022-06-01 12:11 | Electrocardiogram Report ---
Test Reason : Blood Pressure : / mmHG Vent. Rate : 113 BPM Atrial Rate : 113 BPM P-R Int : 214 ms QRS Dur : 092 ms QT Int : 294 ms P-R-T Axes : 058 010 045 degrees QTc Int : 403 ms Sinus tachycardia with 1st degree A-V block Abnormal ECG When compared with ECG of 31-MAY-2022 17:08, No significant change was found Confirmed by Manoj Mack ([id number]) on 06/01/2022 12:11:34 PM Referred By: REFERRED SELF Confirmed By:Manoj Mack
--- NOTE | 2022-06-01 12:11 | Electrocardiogram Report ---
Test Reason : Blood Pressure : / mmHG Vent. Rate : 121 BPM Atrial Rate : 121 BPM P-R Int : 198 ms QRS Dur : 088 ms QT Int : 294 ms P-R-T Axes : 063 017 048 degrees QTc Int : 417 ms Sinus tachycardia Otherwise normal ECG When compared with ECG of 31-MAY-2022 17:07, Supraventricular tachycardia no longer present HR has decreased by 36 bpm Confirmed by Manoj Mack ([id number]) on 06/01/2022 12:11:24 PM Referred By: REFERRED SELF Confirmed By:Manoj Mack
--- NOTE | 2022-06-01 13:54 | Cardiology Consultation ---
Date of Consultation June 01, 2022 Assessment & Plan (1) SVT (supraventricular tachycardia): (2) Elevated troponin: (3) Atypical chest pain: Plan 71-year-old man with no prior history of dysrhythmias admitted with supraventricular tachycardia which resolved after adenosine administration. He is asymptomatic and hemodynamics are currently favorable, no recurrence of SVT overnight. Although his BP was mildly hypotensive on admission, this was during his SVT, subsequently he has had a low normal or normotensive BP. Would recommend initiation of low-dose beta-royal (metoprolol tartrate 25 mg twice daily) to prevent or moderate any recurrent SVT. His mild troponin elevation may be supply/demand mismatch, but it would be prudent for him to have a stress study at some point. This could be done as an outpatient once he has recovered from his potential appendicitis. If medical management of his tachydysrhythmia is inadequate, he may ultimately require ablation procedure, fortunately he is followed by Dr. Obrien. He did express some concern about erectile dysfunction being worsened on beta- royal therapy, but with his low BP he would be a poor candidate for diltiazem. Perhaps an antiarrhythmic could be considered and/or proceeding to ablation, but at this point would utilize beta-royal for the near term. Will continue to follow while he is hospitalized for observation of his abdominal process. History of Present Illness Reason for Consultation: SVT Requesting Physician: Dyllan Aldrich Attending Physician: Dyllan Aldrich History of Present Illness 71-year-old man followed by Dr. Obrien for atypical chest discomfort, minor valvular heart disease (mild MR/aortic sclerosis), hypertension dyslipidemia, but no prior history of dysrhythmias, who was admitted 05/31/2022 with palpitations and found to have supraventricular tachycardia at rates of up to 170 bpm. He notes that he has experienced these tachypalpitations over the past several weeks, he becomes lightheaded during the episodes and sometimes notes mild chest discomfort. No presyncope or syncope. 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 No ST abnormalities on ECGs, troponin mildly elevated (25.9 and 41.8). He has remained asymptomatic overnight. He had also been noting intermittent left-sided abdominal discomfort, CT scan obtained on admission shows a potential appendicitis, he was initiated on Flagyl and Cipro and is being observed for this. At the time of my evaluation he had no complaints at rest. Allergies Allergy/AdvReac Type Severity Reaction Status Date / Time bee venom protein (honey bee) Allergy Intermediate EXCESSIVE Verified 05/31/22 19:10 SWELLING AT SITE sulfamethoxazole Allergy Intermediate TONGUE Verified 05/31/22 19:10 SWELLS, WHITE BLISTERS IN MOUTH. trimethoprim Allergy Intermediate TONGUE Verified 05/31/22 19:10 SWELLS, WHITE BLISTERS IN MOUTH. adhesive Allergy Mild SKIN Verified 05/31/22 19:10 IRRITATION morphine AdvReac Intermediate PROJECTILE Verified 05/31/22 19:10 VOMITING Home Medications Medication Instructions Recorded Confirmed Type cyclobenzaprine 10 mg tablet 10 mg PO HS 02/28/19 05/31/22 History omeprazole 20 mg capsule,delayed 20 mg PO HS 02/28/19 05/31/22 History release pramipexole 0.5 mg tablet 0.5 mg PO HS 02/28/19 05/31/22 History loratadine 10 mg tablet (Claritin) 10 mg PO DAILY PRN Congestion 03/13/19 05/31/22 History ondansetron 4 mg disintegrating 4 mg PO Q8H PRN Nausea And Vomiting 04/10/19 05/31/22 History tablet cholecalciferol (vitamin D3) 25 2,000 units PO HS 06/10/19 05/31/22 History mcg (1,000 unit) capsule lisinopril 5 mg tablet 5 mg PO HS 08/02/19 05/31/22 History alfuzosin 10 mg tablet,extended 10 mg PO HS 02/12/20 05/31/22 History release 24 hr dicyclomine 10 mg capsule 10 mg PO BID PRN ABD PAIN 02/12/20 05/31/22 History famotidine 20 mg tablet 20 mg PO HS 03/08/20 05/31/22 History pravastatin 40 mg tablet 20 mg PO HS 11/04/21 05/31/22 History ascorbic acid (vitamin C) 500 mg 250 mg PO HS 01/11/22 05/31/22 History tablet ferrous sulfate 325 mg (65 mg 325 mg PO Q OTHER DAY 01/11/22 05/31/22 History iron) tablet folic acid 1 mg tablet 1 mg PO HS 01/11/22 05/31/22 History aspirin 81 mg tablet,delayed 81 mg PO HS 02/22/22 05/31/22 History release (Alice Low Dose Aspirin) fentanyl 100 mcg/hr transdermal 100 mcg transdermal Q48H 02/22/22 05/31/22 History patch testosterone (AndroGel) 2 pump topical HS 02/22/22 05/31/22 History naloxegol 25 mg tablet 25 mg PO QAM 03/23/22 05/31/22 History gabapentin 300 mg capsule 300 mg PO TID #90 caps 05/25/22 05/31/22 Rx cyanocobalamin (vitamin B-12) 2,500 mcg PO HS 05/31/22 05/31/22 History 2,500 mcg tablet Patient History Medical History Acute on chronic respiratory failure with hypoxemia Atypical chest pain BPH (benign prostatic hyperplasia) Chronic back pain Chronic respiratory failure Depression GERD (gastroesophageal reflux disease) History of acute renal failure Hypertension Hypogonadotropic hypogonadism in male Hypoxia Leukocytosis Metabolic encephalopathy Non-ST elevation AL (NSTEMI) Prostatitis Recurrent pneumonia RLS (restless legs syndrome) Surgical History History of ankle surgery Britton reconstruction-right side History of carpal tunnel release History of mandibular surgery History of surgery mass removed from left side of clavicle Status post trigger finger release Family History Mother Cancer Hypertension Myasthenia gravis Son Environmental allergies Asthma Sister Gallbladder disease Father Alzheimer disease Other No family history of bleeding disorder Social History Smoking Status: Never smoker Tobacco Type: Cigarettes Second Hand Exposure: No; Hx Alcohol Use: No Hx Substance Use: No Preferred Language: Faroese Communication Ability: Effective Flight Communications Specialist Required: No Beliefs That Will Affect Care: Sabianist Sabianist Beliefs: Romelia marital status: Current Living Situation: Spouse current occupational status: retired Feels Safe at Home: Yes Assistive Devices: CPAP Physical Exam Physical Exam: No distress. BP normotensive. Pulse 92 bpm and regular. Skin: no ecchymoses or generalized lesions. HEENT: unremarkable. Neck: no JVD or carotid bruits. Lungs: clear. Cardiac: regular rhythm, normal S1 and S2 no murmur or gallop. Abdomen: benign. Extremities: no edema, pulses intact. Neurologic: normal affect and conversation, nonfocal. Results & Data ([facility]) Vital Signs (Past 12 Hours) Vital Signs Pulse Pulse Resp BP Pulse Ox O2 Del Method O2 Flow Rate 06/01/22 12:41 94 H 20 127/87 94 Room Air 06/01/22 07:35 95 H 15 97 3 06/01/22 10:39 94 H 16 97 BiPAP 06/01/22 07:34 96 H 24 102/80 97 BiPAP 06/01/22 02:31 98 H 16 102/73 92 CPAP 06/01/22 02:10 91 H 19 95 3 06/01/22 02:15 87 16 98/72 L 92 CPAP Laboratory Results WBC 10.52, normal hemoglobin and platelet count. Normal electrolytes, BUN 20, creatinine 1.04. Diagnostic Findings Initial ECG showed SVT with ventricular rate of 161 bpm, isoelectric ST segme nts. Small R prime in V1 suggest AV latricia latricia reentrant tachycardia. Second ECG showed similar findings at 157 bpm. 2 subsequent ECG showed sinus tachycardia at 121 and 113 bpm, otherwise unremarkable. Chest x-ray showed no acute process. Echocardiogram 2020 showed normal LV function (EF 60-65%), with no significant valvular disease. PG Care Time/CCT Total # of Minutes Spent Total Time Spent with Patient: Total time spent is greater than 50% in coordination of care (as documented) at patient's floor/unit and/or counseling patient: Coding Level of Care Code INP/OBS CONSULT LVL 4, 60 MIN Diagnoses SVT (supraventricular tachycardia) I47.1 Elevated troponin R77.8 Atypical chest pain R07.89
[2022-06-01] MEDS ORDERED: Nursing to Pharmacy Communication SCH (16:45)
[2022-06-01] MEDS ORDERED: fentaNYL 100 MCG/HR TDSY TD SCH (17:00)
[2022-06-01] MEDS: CIPROFLOXACIN / D5W 400 MG/200 ML BAG IV SCH (20:23)
[2022-06-01] MEDS: PRAMIPEXOLE DIHYDROCHLO 0.5 MG TAB PO SCH (20:24)
[2022-06-01] MEDS: PRAVASTATIN SOD 20 MG TAB PO SCH (20:24)
[2022-06-01] MEDS: CYCLOBENZAPRINE HCL 10 MG TAB PO SCH (20:25)
[2022-06-01] MEDS: ASPIRIN 81 MG ECTAB PO SCH (20:25)
[2022-06-01] MEDS: METOPROLOL TARTRATE 25 MG TAB PO SCH (20:26)
[2022-06-01] MEDS: ONDANSETRON INJ 2 MG/ML 2 ML VIAL IV PRN (22:49)
[2022-06-01] MEDS ORDERED: MELATONIN 3 MG TAB PO PRN (23:41)
[2022-06-02] MEDS: metroNIDAZOLE 500 MG/100 ML BAG IV SCH ×3 (01:01→16:55)
[2022-06-02 07:17] LABS: Basophils # (auto) 0.07 K/uL (0-0.2); Basophils % (auto) 0.7 %; Eosinophils # (auto) 0.37 K/uL (0-0.50); Eosinophils % (auto) 3.9 %; Hemoglobin 14.3 g/dl (14.0-18.0); Immature Granulocytes # (auto) 0.11 K/uL (0.01-0.20); Immature Granulocytes % (auto) 1.2 %; Lymphocytes # (auto) 2.22 K/uL (1.2-3.4); Lymphocytes % (auto) 23.6 %; Mean Corpuscular Hemoglobin 31.4 pg (25.0-34.0); Mean Corpuscular Hgb Conc 32.5 g/dL (32.0-36.0); Mean Corpuscular Volume 96.7 fL (80.0-100.0); Mean Platelet Volume 9.6 fL (9.4-12.4); Monocytes # (auto) 1.07 K/uL (0.11-0.59); Monocytes % (auto) 11.4 %; Neutrophils # (auto) 5.57 K/uL (1.40-6.50); Neutrophils % (auto) 59.2 %; Platelet Count 304 K/uL (130-400); RDW Coefficient of Variation 16.1 % (11.5-14.5); RDW Standard Deviation 57.5 fL (36.4-46.3); Red Blood Count 4.55 M/uL (4.70-6.10); White Blood Count 9.41 K/ul (4.8-10.8)
--- NOTE | 2022-06-02 07:32 | Hospitalist Progress Note ---
Date of Service June 02, 2022 Assessment & Plan (1) SVT (supraventricular tachycardia): Plan: 71yo male presenting with complaint of episodic tachycardia with associated hypotension. He reports heart rates at home measuring 170-180 on occasion with blood pressure as low as 60/40. These episodes are associated with feeling weak and sluggish. He did have an episode of SVT in the ER with blood pressure of 78/58 which resolved with Adenosine 6mg IV. Suspect patient is having episodes of SVT with associated hypotension. Presently he is in sinus tachycardia with adequate blood pressure. -Continue to monitor on med/telemetry -Random cortisol and TSH normal -Cardiology consultation appreciated and recommended low dose Metoprolol tartate 25mg BID -Also recommended that patient have a stress study at some point and this can be done as an outpatient once he has fully recovered from his "presumed appendicitis" (2) Appendicitis: Plan: Findings on CT as above with concern for appendiceal inflammation. Patient is afebrile, no leukocytosis, procalcitonin is negative. Examination of the RLQ is benign -General Surgery consultation appreciated -Continue Ciprofloxacin and Flagyl per surgery (need a total of 10 day treatment) -Zofran as needed for nausea - Continue to monitor abdominal exams (3) Chronic pain: Plan: Patient with chronic back pain. He follows with pain clinic. Presently on Fentanyl TD 100mcg. -Continue Fentanyl TD 100mcg -Constipation noted on imaging - Bowel regimen - Miralax and Dulcolax/Senna -Continue Bentyl 10mg po BID PRN abdominal pain -Continue Flexeril 10mg po qHS -Patient was recently prescribed Gabapentin 300mg po TID for neuropathic pain but has not yet started. Will hold for now Patient to follow up with his pain doctor upon discharge (4) RLS (restless legs syndrome): Plan: Chronic. Fairly well controlled with Pramipexole -Continue Pramipexole 0.5mg po qHS (5) Pituitary microadenoma: Plan: Patient follows with Dr. Aguilar and Dr. Reeves No acute issues (6) Severe obstructive sleep apnea: Plan: Chronic. Patient is compliant with his CPAP -Continue CPAP 6cmH2O with 3L O2 qHS (7) GERD (gastroesophageal reflux disease): Plan: Chronic -Continue Pepcid 20mg po qHS (8) Hypertension: Plan: Patient with episodes of hypotension. He is on Lisinopril 5mg po qHS -Hold Lisinopril -Monitor BP -Cardiology consultation appreciated and recommended low dose Metoprolol tartrate 25mg BID -Continue Metoprolol tartrate 25mg one BID and will need outpatient cardiology follow up for possible stress testing Plan F/E/N -LR at 125mL/hr x 2 liters in ER, monitor electrolytes, heart healthy diet as tolerated Ppx -Lovenox Code - Full Dispo - Admit to medical with telemetry Admission and Anticipated Discharge Date Admission Date: May 31, 2022 Subjective Patient was awake standing up in room. He is tolerating a heart healthy diet and has had no abdominal pain, nausea or vomiting. He has no chest pain, SOB, or dyspnea. He is asking if his can bring in his testosterone gel. Review of Systems Review of Systems: Patient denies any abdominal pain, nausea, vomiting or diarrhea. He denies any chest pain, dyspnea or SOB. All other ROS negative unless stated above. Physical Exam Constitutional: WD/WN, vitals as above Neck: trachea midline, no thyromegaly Respiratory: normal respiratory effort, lungs clear to auscultation Cardiovascular: Rate/Rhythm: regular rate, regular rhythm and + tachycardic Gastrointestinal (Abdomen): normal bowel sounds, soft, nontender, no hepatosplenomegaly Psychiatric: Orientation: alert and oriented x 3 Apperance: appropriately groomed Results & Data Results & Data ([facility]) Vital Signs (Past 12 Hours) Vital Signs Temp Pulse Pulse Resp BP Pulse Ox O2 Del Method 06/01/22 23:45 97 H 33 H 92 06/01/22 22:02 93 H 06/02/22 00:25 36.5 C 97 H 20 142/80 H 92 Nasal Cannula 06/01/22 23:00 Room Air, Nasal Cannula 06/01/22 19:58 36.8 C 71 20 156/78 H 92 Room Air O2 Flow Rate 06/01/22 23:45 3 06/01/22 22:02 06/02/22 00:25 2 06/01/22 23:00 2 06/01/22 19:58 Laboratory Results Abnormal lab results 06/02/22 06/02/22 Range/Units 06:38 06:38 RBC 4.55 L (4.70-6.10) M/uL RDW Std Deviation 57.5 H (36.4-46.3) fL RDW Coeff of Netta 16.1 H (11.5-14.5) % [place] # (Auto) 1.07 H (0.11-0.59) K/uL Carbon Dioxide 35 H (21-32) mmol/L Glucose 105 H (70-99(Fasting)) mg/dl PG Care Time/CCT Total # of Minutes Spent Total Time Spent with Patient: Total time spent is greater than 50% in coordination of care (as documented) at patient's floor/unit and/or counseling patient: Coding Level of Care Code 38795 SUB INP/OBS CARE 05/17MIN Diagnoses SVT (supraventricular tachycardia) I47.1 Appendicitis K37 Chronic pain G89.29 RLS (restless legs syndrome) G25.81 Pituitary microadenoma D35.2 Severe obstructive sleep apnea G47.33 GERD (gastroesophageal reflux disease) K21.9 Hypertension I10 Hypertension type: essential hypertension (1) Hypertension Hypertension type: essential hypertension Qualified Code(s): I10 - Essential (primary) hypertension
[2022-06-02 07:33] LABS: Albumin Level 4.5 gm/dl (3.4-5.0); Bilirubin Direct 0.2 mg/dl (0-0.2); Calcium 9.2 mg/dl (8.5-10.1); Potassium 4.2 mmol/L (3.5-5.1)
[2022-06-02 07:38] LABS: BUN Creatinine Ratio 13.8 (10-20); Creatinine Clr Calc Pharmacy 72.1 ml/min; Est GFR (African American) 79.3 ml/min; Est GFR (Non-African American) 68.4 ml/min; Total Protein 7.7 gm/dl (6.0-8.3)
[2022-06-02] MEDS: CIPROFLOXACIN / D5W 400 MG/200 ML BAG IV SCH ×2 (08:09→21:04)
[2022-06-02] MEDS: METOPROLOL TARTRATE 25 MG TAB PO SCH ×2 (08:09→21:12)
[2022-06-02] MEDS: DOCUSATE SODIUM/SENNA 50/8.6MG TAB PO SCH (08:10)
[2022-06-02] MEDS: POLYETHYLENE (MIRALAX) 17 GM PACK PO SCH (08:10)
[2022-06-02] MEDS: ENOXAPARIN INJ 40 MG/0.4 ML SYR SQ SCH (08:10)
[2022-06-02] MEDS: CHECK fentaNYL PATCH PLACEMENT SCH ×2 (08:11→16:55)
[2022-06-02] MEDS ORDERED: fentaNYL 100 MCG/HR TDSY TD SCH (09:00)
[2022-06-02] MEDS: ONDANSETRON INJ 2 MG/ML 2 ML VIAL IV PRN ×2 (09:49→18:51)
[2022-06-02] MEDS: FAMOTIDINE 20 MG TAB PO SCH (21:10)
[2022-06-02] MEDS: PRAMIPEXOLE DIHYDROCHLO 0.5 MG TAB PO SCH (21:11)
[2022-06-02] MEDS: ASPIRIN 81 MG ECTAB PO SCH (21:11)
[2022-06-02] MEDS: PRAVASTATIN SOD 20 MG TAB PO SCH (21:12)
[2022-06-02] MEDS: ALFUZOSIN HCL 10 MG TAB PO SCH (21:12)
[2022-06-02] MEDS: CYCLOBENZAPRINE HCL 10 MG TAB PO SCH (21:14)
[2022-06-03] MEDS: metroNIDAZOLE 500 MG/100 ML BAG IV SCH ×2 (01:35→09:19)
[2022-06-03 05:58] LABS: Basophils # (auto) 0.05 K/uL (0-0.2); Basophils % (auto) 0.6 %; Eosinophils # (auto) 0.49 K/uL (0-0.50); Eosinophils % (auto) 5.4 %; Hematocrit (blood only) 40.4 % (42.0-52.0); Hemoglobin 13.4 g/dl (14.0-18.0); Immature Granulocytes # (auto) 0.13 K/uL (0.01-0.20); Immature Granulocytes % (auto) 1.4 %; Lymphocytes # (auto) 2.07 K/uL (1.2-3.4); Lymphocytes % (auto) 22.9 %; Mean Corpuscular Hemoglobin 32.3 pg (25.0-34.0); Mean Corpuscular Hgb Conc 33.2 g/dL (32.0-36.0); Mean Corpuscular Volume 97.3 fL (80.0-100.0); Mean Platelet Volume 9.8 fL (9.4-12.4); Monocytes # (auto) 1.07 K/uL (0.11-0.59); Monocytes % (auto) 11.8 %; Neutrophils # (auto) 5.23 K/uL (1.40-6.50); Neutrophils % (auto) 57.9 %; Platelet Count 285 K/uL (130-400); RDW Coefficient of Variation 15.9 % (11.5-14.5); RDW Standard Deviation 56.2 fL (36.4-46.3); Red Blood Count 4.15 M/uL (4.70-6.10); White Blood Count 9.04 K/ul (4.8-10.8)
[2022-06-03 06:17] LABS: BUN Creatinine Ratio 15.2 (10-20); Calcium 8.7 mg/dl (8.5-10.1); Creatinine Clr Calc Pharmacy 70.2 ml/min; Est GFR (African American) 76.7 ml/min; Est GFR (Non-African American) 66.2 ml/min; Potassium 4.1 mmol/L (3.5-5.1)
[2022-06-03] MEDS: DOCUSATE SODIUM/SENNA 50/8.6MG TAB PO SCH (09:10)
[2022-06-03] MEDS: CHECK fentaNYL PATCH PLACEMENT SCH ×2 (09:10)
[2022-06-03] MEDS: POLYETHYLENE (MIRALAX) 17 GM PACK PO SCH (09:10)
[2022-06-03] MEDS: METOPROLOL TARTRATE 25 MG TAB PO SCH (09:12)
[2022-06-03] MEDS: ENOXAPARIN INJ 40 MG/0.4 ML SYR SQ SCH (09:13)
[2022-06-03] MEDS: CIPROFLOXACIN / D5W 400 MG/200 ML BAG IV SCH (09:19)
[2022-06-03] MEDS ORDERED: PANTOprazole 40 MG TAB PO STA (09:19)
--- NOTE | 2022-06-03 12:32 | Discharge Summary ---
Date of Service June 03, 2022 Admission HPI Per Admitting Provider Basim Pardo is a 71yo male with history of GERD, HTN, Depression, GERD and a pituitary microadenoma presenting from home with complaint of intermittent tachycardia and hypotension. Patient reports at least two week of intermittent episodes of elevated heart rate and low blood pressure. He reports that he occasionally feels weak or sluggish which prompts him to check his vital signs. At those times his heart rate is elevated to the 170's - 180's and his blood pressure is as low as 60/40. He reports the sensation lasts several minutes then resolves. He denies chest pain or palpitations. Denies dizziness, syncope, cough, SOB. He denies fever, chills, nausea, vomiting. Denies melena, hematochezia. He does have chronic constipation secondary to opioid use for which he uses Naloxegol as well as frequent night sweats. Weight has been stable. Also reports occasional left sided abdominal pain. No additional complaints at this time. Upon arrival to the ER patient afebrile, HD stable with initial HR of 75, blood pressure of 97/64. He did have an episode of SVT which was successfully treated with Adenosine 6mg with return to sinus tachycardia. CT of the abdomen with results below. Some concern for appendicitis. Patient denies fever, chills or right sided abdominal pain. ER Course: Adenosine 6mg NSS x 1L Cipro 400mg Flagyl 500mg Fentanyl 100mcg patch Admission Exam Per Admitting Provider General: patient resting comfortably, NAD, non-toxic in appearance, AA&O x 4. Pads present on chest Skin: warm, dry, intact, no rashes or lesions HEENT: NC/AT, PERRL, EOMI, anicteric sclera, conjunctiva without injection, external ear normal to inspection and nontender, nares patent, slightly dry mucus membranes, dentition intact, no oropharyngeal lesions, neck supple, trachea midline, no LAD, no thyromegaly, no JVD Heart: +S1/S2, regular, tachycardic, no m/r/g Lungs: equal air entry bilaterally, no rales/rhonchi/wheezes Abd: +BS, soft, ND, mild tenderness in LLQ, no rebound/guarding/peritonitis. No pain in RLQ, no masses/organomegaly/ascites Ext: warm, 2+ pulses in UE/LE bilaterally, no clubbing/cyanosis or edema, +varicosities Neuro: nonfocal, patient AA&O x 4, speech intact, no facial droop, moving all extremities on command with equal strength 5/5 Principal Diagnosis SVT Appendicitis Discharge Exam Constitutional WD/WN, vitals as above Neck trachea midline, no thyromegaly Respiratory normal respiratory effort, lungs clear to auscultation Cardiovascular Rate/Rhythm: regular rate, regular rhythm and + tachycardic Gastrointestinal (Abdomen) normal bowel sounds, soft, nontender, no hepatosplenomegaly Psychiatric Orientation: alert and oriented x 3 Apperance: appropriately groomed and + disheveled Discharge Data Allergies Allergy/AdvReac Type Severity Reaction Status Date / Time bee venom protein (honey bee) Allergy Intermediate EXCESSIVE Verified 05/31/22 19:10 SWELLING AT SITE sulfamethoxazole Allergy Intermediate TONGUE Verified 05/31/22 19:10 SWELLS, WHITE BLISTERS IN MOUTH. trimethoprim Allergy Intermediate TONGUE Verified 05/31/22 19:10 SWELLS, WHITE BLISTERS IN MOUTH. adhesive Allergy Mild SKIN Verified 05/31/22 19:10 IRRITATION morphine AdvReac Intermediate PROJECTILE Verified 05/31/22 19:10 VOMITING Consultations 05/31/22 19:16 ED Decision to Admit Stat 06/01/22 01:34 Consult Cardiology Routine Consult General Surgery Routine Ordered Studies 05/31/22 16:49 CT abd pelvis IV con only Stat 1. The appendix is dilated measuring up to 10 mm, and the wall appears mildly t hickened. There may be faint periappendiceal infiltration, and the caliber of the appendix has significantly changed as compared to 06/26/2018. Mild/early acute appendicitis is not excluded. Clinical correlation will be essential and surgical assessment is advised. If this does not fit the clinical presentation consider short-term CT follow-up. 2. Moderate to severe constipation. 3. Coronary artery calcification. 4. Additional findings as above. Hospital Course (1) SVT (supraventricular tachycardia): 71yo male presenting with complaint of episodic tachycardia with associated hypotension. He reports heart rates at home measuring 170-180 on occasion with blood pressure as low as 60/40. These episodes are associated with feeling weak and sluggish. He did have an episode of SVT in the ER with blood pressure of 78/58 which resolved with Adenosine 6mg IV. Suspect patient is having episodes of SVT with associated hypotension. Presently he is in sinus tachycardia with adequate blood pressure. Today BP 120/69 -Patient was monitored on med/telemetry -Random cortisol and TSH normal -Cardiology consultation appreciated and recommended low dose Metoprolol tartate 25mg BID -Also recommended that patient have a stress study at some point and this can be done as an outpatient once he has fully recovered from his "presumed a ppendicitis" (2) Appendicitis: Findings on CT as above with concern for appendiceal inflammation. Patient is afebrile, no leukocytosis, procalcitonin is negative. Examination of the RLQ is benign -General Surgery consultation appreciated -Continue Ciprofloxacin and Flagyl per surgery (need a total of 10 day treatment) Will send in a rx to finish the course (3) Chronic pain: Patient with chronic back pain. He follows with pain clinic. Presently on Fentanyl TD 100mcg. -Continue Fentanyl TD 100mcg -Constipation noted on imaging - Bowel regimen - Miralax and Dulcolax/Senna -Continue Bentyl 10mg po BID PRN abdominal pain -Continue Flexeril 10mg po qHS -Patient was recently prescribed Gabapentin 300mg po TID for neuropathic pain but has not yet started. Will hold for now Patient to follow up with his pain doctor upon discharge (4) RLS (restless legs syndrome): Chronic. Fairly well controlled with Pramipexole -Continue Pramipexole 0.5mg po qHS (5) Pituitary microadenoma: Patient follows with Dr. Aguilar and Dr. Reeves No acute issues (6) Severe obstructive sleep apnea: Chronic. Patient is compliant with his CPAP -Continue CPAP 6cmH2O with 3L O2 qHS (7) GERD (gastroesophageal reflux disease): Chronic -Continue Pepcid 20mg po qHS (8) Hypertension: Patient with episodes of hypotension. He is on Lisinopril 5mg po qHS -Hold Lisinopril -Monitor BP -Cardiology consultation appreciated and recommended low dose Metoprolol tartrate 25mg BID -Continue Metoprolol tartrate 25mg one BID and will need outpatient cardiology follow up for possible stress testing Plan Discharge to home today Rx sent to [facility] and also to the [facility] in [place] for the Metorolol Tartate 25mg one 2 x per day to start this tonight Rx sent to [facility] for Cipro 500mg one 2 X per day (start tonight ) Metrondiazole 500mg one 3 x per day to also take tonight Needs to follow up with cardiology and general surgery in the next 1-2 weeks (patient states he has an appt with Dr Obrien in 2 weeks already) Total Time Total Time Spent Total Time Spent (In Minutes): 40 Discharge Plan Discharge Items Patient Disposition: Home - Self-Care Reason For Visit: TACHYCARDIA, HYPOTENSION Discharge Diagnosis: SVT Presumed appendicitis Condition on Discharge: Good Activity: Resume your previous activity Weightbearing: Full weightbearing Non-emergency contact: Primary Care Provider, Surgeon and Manager [employer] Call non-emergency contact if: you have any medication questions, your symptoms worsen and you have a fever Follow-up/Referrals: Francis Rubin, SYSTEMS SUPPORT ENGINEER-C [Primary Care Provider] - Diet: Heart Healthy Addtl Attending Provider Instructions: You were admitted with complaints of elevated heart rate and low blood pressures that you were assessing as an out patient at home. You were evaluated and found to have possible appendicitis per CT scan of your abdomen. Surgery evaluated you and felt you had "presumed appendicitis" per the CT report but your abdominal exam was benign and no indication for any surgical procedures. The recommended Cipro and flagyl. You were started on IV Cipor and Flagyl and also started on a diet which you tolerated. You continued to remain without any fevers and no abdominal complaints. You will need to finish a complete 10 day course. You will be rx oral antibiotics for the remainder of the 10 days (7.5 days ) to start the antibiotics tonight. Cipro will be one 2x per day and Flagyl will be one 3x per day. Antibiotic rx sent to [place] at [facility] along with the metoprolol. [facility] from [facility]. You also were found to have SVT (supraventricular tachycardia) and elevated cardiac enzymes and were evaluated by cardiology. It was recommended for you to start a low dose beta royal (metoprolol tartate 25mg one 2 x per day. This was started int hospital Cardiology also recommended you have a stress test as an outpatient when the appendicitis has resolved. You will need to follow up with General Surgery and Cardiology as well as your primary care doctor. Pending Studies at Discharge: No Stand-Alone Forms: My [facility] Medications and DC Order Prescriptions: New metoprolol tartrate 25 mg Tablet 25 mg PO BID Qty: 60 3RF ciprofloxacin HCl [Cipro] 500 mg tablet 500 mg PO BID Qty: 15 0RF metronidazole 500 mg tablet 500 mg PO TID Qty: 22 0RF Rx Instructions: Start this medication the evening of 06/03/22 metoprolol tartrate 25 mg tablet 25 mg PO BID Qty: 60 0RF Rx Instructions: start the evening of 06/03/22 Continued alfuzosin 10 mg tablet extended release 24 hr 10 mg PO HS Rx Instructions: administer after the same meal each day pramipexole 0.5 mg tablet 0.5 mg PO HS cyclobenzaprine 10 mg tablet 10 mg PO HS loratadine [Claritin] 10 mg tablet 10 mg PO DAILY PRN (Reason: Congestion) ondansetron 4 mg tablet,disintegrating 4 mg PO Q8H PRN (Reason: Nausea And Vomiting) ferrous sulfate 325 mg (65 mg iron) tablet 325 mg PO Q OTHER DAY folic acid 1 mg tablet 1 mg PO HS ascorbic acid (vitamin C) 500 mg tablet 250 mg PO HS naloxegol 25 mg tablet 25 mg PO QAM Rx Instructions: must be taken on empty stomach; no food 1 hr after or 2-3 hrs before dose gabapentin 300 mg capsule 300 mg PO TID Qty: 90 3RF Rx Instructions: PER PT'S SPOUSE "HAVE NOT STARTED YET, DID NOT GET FROM [facility] YET". cholecalciferol (vitamin D3) 25 mcg (1,000 unit) capsule 2,000 units PO HS famotidine 20 mg tablet 20 mg PO HS omeprazole 20 mg capsule,delayed release(DR/EC) 20 mg PO HS lisinopril 5 mg tablet 5 mg PO HS dicyclomine 10 mg capsule 10 mg PO BID PRN (Reason: ABD PAIN) fentanyl 100 mcg/hr patch 72 hour 100 mcg transdermal Q48H Rx Instructions: PER PT "TOOK OFF THIS AM". aspirin [Alice Low Dose Aspirin] 81 mg tablet,delayed release (DR/EC) 81 mg PO HS testosterone [AndroGel] 20.25 mg/1.25 gram (1.62 %) gel in metered-dose pump 2 pump topical HS Rx Instructions: apply 1 pump amount over max area of each upper arm and shoulder pravastatin 40 mg Tablet 20 mg PO HS cyanocobalamin (vitamin B-12) 2,500 mcg tablet 2,500 mcg PO HS Discharge Orders: Discharge Order (Routine); Ordered 06/03/22 Ordered By: Emiliana Loco Admission Data Admit Date/Time: 05/31/22 20:45 Attending Provider: Dyllan Aldrich Admit Provider: Kimberly Paz Primary Care Provider: Francis Rubin Other Providers: Kimberly Paz ; Christian Blum ; [facility] ; Mele Reynolds ; Manoj Mack ; Reg Canales ; Feliz Albright ; Dave Lay ; Richie Pulido Jr ; Jefferson Ambrocio ; Osiris Kline ; Lidia Moffett ; Nir Britton ; Padmini Obrien ; Yvan Garcia ; Chayito Nation ; Aruna Machado ; Frank Sidhu ; Jackson Bey ; Manuel Batista ; Feliz Ly V. Coding Level of Care Code HOSP INP/OBS DISCH >30 MIN Diagnoses SVT (supraventricular tachycardia) I47.1 Appendicitis K37 Chronic pain G89.29 RLS (restless legs syndrome) G25.81 Pituitary microadenoma D35.2 Severe obstructive sleep apnea G47.33 GERD (gastroesophageal reflux disease) K21.9 Hypertension I10 Hypertension type: essential hypertension
== END 2022-06-03 15:30 | disposition home or self-care (01) | DRG 309 ==
LOC: ED 16:28 → SUATTDRO 20:45 → EDINP 20:45 → 2W 06-01 16:12

== ENCOUNTER 2022-06-10 22:12 | Inpatient (IN) ==
[2022-06-10] MEDS ORDERED: ALBUT/IPRATROP 3MG/0.5MG NEB 3 ML VIAL NEB STA (22:31)
--- NOTE | 2022-06-10 22:35 | Emergency Department Note ---
History of Present Illness General Chief complaint: Shortness of Breath/Dyspnea Stated complaint: ERRATIC HEART RATE, LOW O2 Time Seen by Provider: 06/10/22 22:21 History of Present Illness This 71-year-old male that normally only wears oxygen at night with history of GERD, HTN, Depression, GERD and a pituitary microadenoma presents to the ER with family complaining of not feeling right shortness of breath and confusion for the past few days. Family states that he does not normally wear oxygen throughout the day. His sats are in the 80s. His blood pressure was soft. Patient states he just does not feel right. He cannot localize anything. He does deny chest pain and abdominal pain. He denies cough and congestion. When I press on his abdomen it does cause some pain though. He was medically managed recently for appendicitis. Home Medications Medication Instructions Recorded Confirmed Type cyclobenzaprine 10 mg tablet 10 mg PO HS 02/28/19 06/11/22 History omeprazole 20 mg capsule,delayed 20 mg PO HS 02/28/19 06/11/22 History release pramipexole 0.5 mg tablet 0.5 mg PO HS 02/28/19 06/11/22 History loratadine 10 mg tablet (Claritin) 10 mg PO DAILY PRN Congestion 03/13/19 06/11/22 History ondansetron 4 mg disintegrating 4 mg PO Q8H PRN Nausea And Vomiting 04/10/19 06/11/22 History tablet cholecalciferol (vitamin D3) 25 2,000 units PO HS 06/10/19 06/11/22 History mcg (1,000 unit) capsule lisinopril 5 mg tablet 5 mg PO HS 08/02/19 06/11/22 History alfuzosin 10 mg tablet,extended 10 mg PO HS 02/12/20 06/11/22 History release 24 hr dicyclomine 10 mg capsule 10 mg PO BID PRN ABD PAIN 02/12/20 06/11/22 History famotidine 20 mg tablet 20 mg PO HS 03/08/20 06/11/22 History pravastatin 40 mg tablet 20 mg PO HS 11/04/21 06/11/22 History ascorbic acid (vitamin C) 500 mg 250 mg PO HS 01/11/22 06/11/22 History tablet ferrous sulfate 325 mg (65 mg 325 mg PO Q OTHER DAY 01/11/22 06/11/22 History iron) tablet folic acid 1 mg tablet 1 mg PO HS 01/11/22 06/11/22 History aspirin 81 mg tablet,delayed 81 mg PO HS 02/22/22 06/11/22 History release (Alice Low Dose Aspirin) fentanyl 100 mcg/hr transdermal 100 mcg transdermal Q48H 02/22/22 06/11/22 History patch naloxegol 25 mg tablet 25 mg PO QAM 03/23/22 06/11/22 History gabapentin 300 mg capsule 300 mg PO TID #90 caps 05/25/22 06/11/22 Rx cyanocobalamin (vitamin B-12) 2,500 mcg PO HS 05/31/22 06/11/22 History 2,500 mcg tablet ciprofloxacin HCl 500 mg tablet 500 mg PO BID #15 tabs 06/03/22 06/11/22 Rx (Cipro) metoprolol tartrate 25 mg tablet 25 mg PO BID #60 tabs 06/03/22 06/11/22 Rx metronidazole 500 mg tablet 500 mg PO TID #22 tabs 06/03/22 06/11/22 Rx testosterone (AndroGel) 2 pump topical HS #75 grams 06/08/22 06/11/22 Rx Allergies Allergy/AdvReac Type Severity Reaction Status Date / Time bee venom protein (honey bee) Allergy Intermediate EXCESSIVE Verified 06/11/22 00:38 SWELLING AT SITE sulfamethoxazole Allergy Intermediate TONGUE Verified 06/11/22 00:38 SWELLS, WHITE BLISTERS IN MOUTH. trimethoprim Allergy Intermediate TONGUE Verified 06/11/22 00:38 SWELLS, WHITE BLISTERS IN MOUTH. adhesive Allergy Mild SKIN Verified 06/11/22 00:38 IRRITATION morphine AdvReac Intermediate PROJECTILE Verified 06/11/22 00:38 VOMITING Past Med/Surg History Medical History (Updated 06/11/22 @ 11:03 by Mo King MD) Acute on chronic respiratory failure with hypoxemia Atypical chest pain BPH (benign prostatic hyperplasia) Chronic back pain Chronic respiratory failure Depression GERD (gastroesophageal reflux disease) History of acute renal failure Hypertension Hypogonadotropic hypogonadism in male Hypoxia Leukocytosis Metabolic encephalopathy Non-ST elevation OR (NSTEMI) Prostatitis Recurrent pneumonia RLS (restless legs syndrome) Surgical History History of ankle surgery Britton reconstruction-right side History of carpal tunnel release History of mandibular surgery History of surgery mass removed from left side of clavicle Status post trigger finger release Family History Mother Cancer Hypertension Myasthenia gravis Son Environmental allergies Asthma Sister Gallbladder disease Father Alzheimer disease Other No family history of bleeding disorder Social History Smoking Status: Never smoker Tobacco Type: Cigarettes Second Hand Exposure: No; Hx Alcohol Use: No Hx Substance Use: No Preferred Language: Vincentian Communication Ability: Effective Tray Service Worker Required: No Beliefs That Will Affect Care: None marital status: Current Living Situation: Spouse current occupational status: retired Other Information That Helps Us Care for You: No Feels Safe at Home: Yes Safety Concerns: Feels Safe At This Time Assistive Devices: Cane, Glasses, Oxygen - at Night and Wheelchair Review of Systems A total of 10 systems reviewed and were otherwise negative Physical Exam Vital Signs Vital Signs - 24 hr 06/10/22 22:15 06/10/22 23:14 06/10/22 22:56 Temperature 36.8 C Temperature Source Temporal Artery Scan Pulse Rate 109 H 115 H Pulse Rate [Apical] 112 H Pulse Rate from SpO2 Sensor Respiratory Rate 18 20 Respiratory Effort / Characteristics Non-Labored Spontaneous Non-Labored Spontaneous Respiratory Depth Normal Normal Respiratory Pattern Regular Blood Pressure 138/82 Blood Pressure [Right Arm] 146/86 H Blood Pressure Mean 100 Blood Pressure Mean [Right Arm] 106 Pulse Oximetry 98 97 95 Oxygen Delivery Method Nasal Cannula Nasal Cannula Nasal Cannula Oxygen Flow Rate 3 3 3 Fraction of Inspired Oxygen Sepsis Recent Fever Within 48 Hours No Sepsis New/Unexplained Change in Mental Status No Sepsis Action Taken by Nursing No Action Required 06/10/22 22:31 06/10/22 22:47 06/11/22 00:44 Temperature Temperature Source Pulse Rate 109 H 112 H Pulse Rate [Apical] 105 H Pulse Rate from SpO2 Sensor Respiratory Rate 22 Respiratory Effort / Characteristics Spontaneous Labored Short of Breath Respiratory Depth Deep Respiratory Pattern Blood Pressure Blood Pressure [Right Arm] 101/73 Blood Pressure Mean Blood Pressure Mean [Right Arm] 82 Pulse Oximetry 97 93 Oxygen Delivery Method BiPAP Oxygen Flow Rate Fraction of Inspired Oxygen 35 Sepsis Recent Fever Within 48 Hours Sepsis New/Unexplained Change in Mental Status Sepsis Action Taken by Nursing 06/10/22 22:36 06/10/22 22:40 06/10/22 22:50 Temperature Temperature Source Pulse Rate 113 H 107 H 114 H Pulse Rate [Apical] Pulse Rate from SpO2 Sensor 112 H 104 H 108 H Respiratory Rate 17 15 25 H Respiratory Effort / Characteristics Respiratory Depth Respiratory Pattern Blood Pressure Blood Pressure [Right Arm] Blood Pressure Mean Blood Pressure Mean [Right Arm] Pulse Oximetry 94 96 88 L Oxygen Delivery Method Oxygen Flow Rate Fraction of Inspired Oxygen Sepsis Recent Fever Within 48 Hours Sepsis New/Unexplained Change in Mental Status Sepsis Action Taken by Nursing 06/10/22 23:00 06/10/22 23:10 06/10/22 23:13 Temperature Temperature Source Pulse Rate 113 H 112 H Pulse Rate [Apical] Pulse Rate from SpO2 Sensor 114 H 112 H Respiratory Rate 16 22 Respiratory Effort / Characteristics Respiratory Depth Respiratory Pattern Blood Pressure 146/86 H Blood Pressure [Right Arm] Blood Pressure Mean 106 Blood Pressure Mean [Right Arm] Pulse Oximetry 95 92 Oxygen Delivery Method Oxygen Flow Rate Fraction of Inspired Oxygen Sepsis Recent Fever Within 48 Hours Sepsis New/Unexplained Change in Mental Status Sepsis Action Taken by Nursing 06/10/22 23:13 06/10/22 23:15 06/10/22 23:15 Temperature Temperature Source Pulse Rate 111 H 110 H Pulse Rate [Apical] Pulse Rate from SpO2 Sensor 115 H 110 H Respiratory Rate 18 19 Respiratory Effort / Characteristics Respiratory Depth Respiratory Pattern Blood Pressure 106/87 Blood Pressure [Right Arm] Blood Pressure Mean 93 Blood Pressure Mean [Right Arm] Pulse Oximetry 94 99 Oxygen Delivery Method Oxygen Flow Rate Fraction of Inspired Oxygen Sepsis Recent Fever Within 48 Hours Sepsis New/Unexplained Change in Mental Status Sepsis Action Taken by Nursing 06/10/22 23:20 06/10/22 23:30 06/10/22 23:31 Temperature Temperature Source Pulse Rate 119 H 115 H 115 H Pulse Rate [Apical] Pulse Rate from SpO2 Sensor 117 H 118 H 117 H Respiratory Rate 18 20 27 H Respiratory Effort / Characteristics Respiratory Depth Respiratory Pattern Blood Pressure Blood Pressure [Right Arm] Blood Pressure Mean Blood Pressure Mean [Right Arm] Pulse Oximetry 90 92 92 Oxygen Delivery Method Oxygen Flow Rate Fraction of Inspired Oxygen Sepsis Recent Fever Within 48 Hours Sepsis New/Unexplained Change in Mental Status Sepsis Action Taken by Nursing 06/10/22 23:31 06/10/22 23:40 06/10/22 23:46 Temperature Temperature Source Pulse Rate 113 H 114 H Pulse Rate [Apical] Pulse Rate from SpO2 Sensor 116 H 115 H Respiratory Rate 19 22 Respiratory Effort / Characteristics Respiratory Depth Respiratory Pattern Blood Pressure 156/105 H Blood Pressure [Right Arm] Blood Pressure Mean 122 Blood Pressure Mean [Right Arm] Pulse Oximetry 94 91 Oxygen Delivery Method Oxygen Flow Rate Fraction of Inspired Oxygen Sepsis Recent Fever Within 48 Hours Sepsis New/Unexplained Change in Mental Status Sepsis Action Taken by Nursing 06/10/22 23:46 06/10/22 23:50 06/11/22 00:13 Temperature Temperature Source Pulse Rate 111 H Pulse Rate [Apical] Pulse Rate from SpO2 Sensor 111 H 96 H Respiratory Rate 21 Respiratory Effort / Characteristics Respiratory Depth Respiratory Pattern Blood Pressure 156/81 H Blood Pressure [Right Arm] Blood Pressure Mean 106 Blood Pressure Mean [Right Arm] Pulse Oximetry 75 L 95 Oxygen Delivery Method Oxygen Flow Rate Fraction of Inspired Oxygen Sepsis Recent Fever Within 48 Hours Sepsis New/Unexplained Change in Mental Status Sepsis Action Taken by Nursing 06/11/22 00:20 06/11/22 00:30 06/11/22 00:30 Temperature Temperature Source Pulse Rate 112 H 108 H Pulse Rate [Apical] Pulse Rate from SpO2 Sensor 112 H 108 H Respiratory Rate 17 18 Respiratory Effort / Characteristics Respiratory Depth Respiratory Pattern Blood Pressure 101/73 Blood Pressure [Right Arm] Blood Pressure Mean 82 Blood Pressure Mean [Right Arm] Pulse Oximetry 93 92 Oxygen Delivery Method Oxygen Flow Rate Fraction of Inspired Oxygen Sepsis Recent Fever Within 48 Hours Sepsis New/Unexplained Change in Mental Status Sepsis Action Taken by Nursing 06/11/22 00:40 06/11/22 01:30 06/11/22 01:34 Temperature Temperature Source Pulse Rate 105 H Pulse Rate [Apical] 102 H Pulse Rate from SpO2 Sensor 105 H Respiratory Rate 15 21 Respiratory Effort / Characteristics Non-Labored Spontaneous Respiratory Depth Normal Respiratory Pattern Regular Blood Pressure Blood Pressure [Right Arm] 118/60 Blood Pressure Mean Blood Pressure Mean [Right Arm] 79 Pulse Oximetry 94 97 98 Oxygen Delivery Method BiPAP BiPAP Oxygen Flow Rate Fraction of Inspired Oxygen Sepsis Recent Fever Within 48 Hours Sepsis New/Unexplained Change in Mental Status Sepsis Action Taken by Nursing 06/11/22 00:50 06/11/22 01:00 06/11/22 01:01 Temperature Temperature Source Pulse Rate 106 H Pulse Rate [Apical] Pulse Rate from SpO2 Sensor 106 H 113 H 113 H Respiratory Rate 17 17 24 Respiratory Effort / Characteristics Respiratory Depth Respiratory Pattern Blood Pressure Blood Pressure [Right Arm] Blood Pressure Mean Blood Pressure Mean [Right Arm] Pulse Oximetry 98 99 77 L Oxygen Delivery Method Oxygen Flow Rate Fraction of Inspired Oxygen Sepsis Recent Fever Within 48 Hours Sepsis New/Unexplained Change in Mental Status Sepsis Action Taken by Nursing 06/11/22 01:01 06/11/22 01:10 06/11/22 01:20 Temperature Temperature Source Pulse Rate Pulse Rate [Apical] Pulse Rate from SpO2 Sensor 107 H 106 H Respiratory Rate 15 12 Respiratory Effort / Characteristics Respiratory Depth Respiratory Pattern Blood Pressure 90/66 L Blood Pressure [Right Arm] Blood Pressure Mean 74 Blood Pressure Mean [Right Arm] Pulse Oximetry 95 91 Oxygen Delivery Method Oxygen Flow Rate Fraction of Inspired Oxygen Sepsis Recent Fever Within 48 Hours Sepsis New/Unexplained Change in Mental Status Sepsis Action Taken by Nursing 06/11/22 01:30 06/11/22 01:40 06/11/22 01:50 Temperature Temperature Source Pulse Rate Pulse Rate [Apical] Pulse Rate from SpO2 Sensor 105 H 104 H 107 H Respiratory Rate 20 13 30 H Respiratory Effort / Characteristics Respiratory Depth Respiratory Pattern Blood Pressure Blood Pressure [Right Arm] Blood Pressure Mean Blood Pressure Mean [Right Arm] Pulse Oximetry 94 91 87 L Oxygen Delivery Method Oxygen Flow Rate Fraction of Inspired Oxygen Sepsis Recent Fever Within 48 Hours Sepsis New/Unexplained Change in Mental Status Sepsis Action Taken by Nursing 06/11/22 02:00 06/11/22 02:00 06/11/22 02:10 Temperature Temperature Source Pulse Rate 109 H 105 H Pulse Rate [Apical] Pulse Rate from SpO2 Sensor 110 H 105 H Respiratory Rate 19 17 Respiratory Effort / Characteristics Respiratory Depth Respiratory Pattern Blood Pressure 124/69 Blood Pressure [Right Arm] Blood Pressure Mean 87 Blood Pressure Mean [Right Arm] Pulse Oximetry 97 97 Oxygen Delivery Method Oxygen Flow Rate Fraction of Inspired Oxygen Sepsis Recent Fever Within 48 Hours Sepsis New/Unexplained Change in Mental Status Sepsis Action Taken by Nursing 06/11/22 02:20 Temperature Temperature Source Pulse Rate 105 H Pulse Rate [Apical] Pulse Rate from SpO2 Sensor 105 H Respiratory Rate 22 Respiratory Effort / Characteristics Respiratory Depth Respiratory Pattern Blood Pressure Blood Pressure [Right Arm] Blood Pressure Mean Blood Pressure Mean [Right Arm] Pulse Oximetry 94 Oxygen Delivery Method Oxygen Flow Rate Fraction of Inspired Oxygen Sepsis Recent Fever Within 48 Hours Sepsis New/Unexplained Change in Mental Status Sepsis Action Taken by Nursing VITALS: Vitals are noted on the nurse's note and reviewed by myself. Vital signs reviewed. GENERAL: Elderly male mildly ill-appearing following commands with present, in no acute distress, nondiaphoretic, well-developed well-nourished. SKIN: The skin was without rashes, erythema, edema, or bruising. There is no tenting of the skin. Capillary reflex less than 2 seconds. HEAD: Normocephalic atraumatic. EARS: External auditory canals clear, EYES: Pupils equal round and reactive to light and accommodation. Conjunctivae without injection, sclerae without icterus. Extraocular movements intact. NOSE: Patent, turbinates without inflammation or discharge. MOUTH: Mucous membranes moist. Pharynx without erythema or exudate. Uvula midline. Airway patent. Tongue does not deviate. NECK: Supple without nuchal rigidity. No lymphadenopathy. No thyromegaly. Cervical spine is nontender. No JVD. HEART: Regular rate and rhythm LUNGS: Clear to auscultation bilaterally without wheezes, rales or rhonchi. No retractions or accessory muscle use. ABDOMEN: Positive bowel sounds x 4. Normal tympanic percussion. Soft, tender to palpation lower abdomen, without masses or organomegaly. sign negative. No guarding or rebound tenderness. No CVA tenderness MUSCULOSKELETAL: No muscle atrophy, erythema, or edema noted. NEURO: Patient was alert and oriented to person place and time. Normal sensation to light and sharp touch. No focal neurological deficits. Course Administered Medications Albuterol (Albut/Ipratrop 3mg/0.5mg Neb 3 Ml Vial) 3 ml NEB QIDR PRN; Protocol PRN Reason: Wheezing Stop: 07/11/22 06:59 Last Admin: 06/11/22 11:10 Dose: 3 ml Documented By: DONTE Enoxaparin Sodium (Enoxaparin Inj 40 Mg/0.4 Ml Syr) 40 mg SQ Q24H BLANCA Stop: 07/11/22 08:59 Last Admin: 06/11/22 12:23 Dose: 40 mg Documented By: Ferrous Sulfate (Ferrous Sulfate 325 Mg Tab) 325 mg PO Q48H BLANCA Stop: 07/11/22 08:59 Last Admin: 06/11/22 11:27 Dose: 325 mg Documented By: Gabapentin (Gabapentin 300 Mg Cap) 300 mg PO TID BLANCA Stop: 07/11/22 08:59 Last Admin: 06/11/22 13:59 Dose: 300 mg Documented By: Admin: 06/11/22 11:27 Dose: 300 mg Documented By: Sodium Chloride (Nss 1000ml) 1,000 mls @ 60 mls/hr IV .[id number] BLANCA Stop: 06/11/22 20:58 Last Admin: 06/11/22 04:20 Dose: 60 mls/hr Documented By: PADMAJA Azithromycin 500 mg/ Dextrose 255 mls @ 125 mls/hr IV DAILY BLANCA Stop: 06/18/22 08:59 Last Infusion: 06/11/22 11:16 Dose: 0 mls/hr Documented By: Admin: 06/11/22 08:50 Dose: 125 mls/hr Documented By: Metoprolol Tartrate (Metoprolol Tartrate 25 Mg Tab) 25 mg PO BID BLANCA Stop: 07/11/22 08:59 Last Admin: 06/11/22 11:27 Dose: 25 mg Documented By: ENS Phillipscellaneous (Check Fentanyl Patch Placement) 1 each N/A QS BLANCA Stop: 07/11/22 07:59 Last Admin: 06/11/22 08:50 Dose: 1 each Documented By: ENS Townsend (Naloxegol: Order Awaiting Action) 1 each N/A QS BLANCA Stop: 07/11/22 07:59 Last Admin: 06/11/22 07:44 Dose: Not Given Documented By: ENS Townsend (Testosterone [Androgel]: Order Awaiting Action) 1 each N/A QS BLANCA Stop: 07/11/22 07:59 Last Admin: 06/11/22 07:45 Dose: Not Given Documented By: Discontinued Medications Albuterol (Albut/Ipratrop 3mg/0.5mg Neb 3 Ml Vial) 3 ml NEB NOW STA; Protocol Stop: 06/10/22 22:32 Last Admin: 06/10/22 22:49 Dose: 3 ml Documented By: MED Albuterol (Albut/Ipratrop 3mg/0.5mg Neb 3 Ml Vial) 3 ml NEB QIDR BLANCA; Protocol Stop: 07/11/22 06:59 Last Admin: 06/11/22 07:38 Dose: 3 ml Documented By: HMIsabel Sodium Chloride (Nss 1000ml) 500 mls @ 999 mls/hr IV .Q31M BLANCA Stop: 06/10/22 23:15 Last Infusion: 06/11/22 00:03 Dose: 0 mls/hr Documented By: technology specialist: 06/10/22 23:09 Dose: 999 mls/hr Documented By: RAYA Piperacillin Sod/Tazobactam Sod (Zosyn) 4.5 gm in 120 mls @ 240 mls/hr IV NOW ONE Stop: 06/10/22 23:06 Last Infusion: 06/11/22 00:02 Dose: 0 mls/hr Documented By: technology specialist: 06/10/22 22:49 Dose: 240 mls/hr Documented By: RAYA Methylprednisolone 40 mg/ (Syringe) 0.64 mls @ 1.5 mls/min IV Q8H BLANCA Stop: 07/11/22 05:59 Last Admin: 06/11/22 05:48 Dose: 1.5 mls/min Documented By: PADMAJA Medical Decision Making Medical Records Attestation: I reviewed the patient's medical records. Home Medications Current Medication List: was personally reviewed by me Laboratory Data Attestation: I reviewed the patient's lab results. 06/10/22 22:44 06/10/22 22:44 Lab Results 06/10/22 06/10/22 06/10/22 Range/Units 22:39 22:44 22:44 WBC 14.34 H (4.8-10.8) K/ul RBC 4.59 L (4.70-6.10) M/uL Hgb 15.0 (14.0-18.0) g/dl Hct 45.6 (42.0-52.0) % MCV 99.3 (80.0-100.0) fL MCH 32.7 (25.0-34.0) pg MCHC 32.9 (32.0-36.0) g/dL RDW Std Deviation 58.6 H (36.4-46.3) fL RDW Coeff of Netta 15.9 H (11.5-14.5) % Plt Count 269 (130-400) K/uL MPV 9.7 (9.4-12.4) fL Immature Gran % (Auto) 0.8 % Neut % (Auto) 81.5 % Lymph % (Auto) 8.4 % [place] % (Auto) 8.2 % Eos % (Auto) 0.5 % Baso % (Auto) 0.6 % Neut # (Auto) 11.71 H (1.40-6.50) K/uL Lymph # (Auto) 1.20 (1.2-3.4) K/uL [place] # (Auto) 1.17 H (0.11-0.59) K/uL Eos # (Auto) 0.07 (0-0.50) K/uL Baso # (Auto) 0.08 (0-0.2) K/uL Immature Gran # (Auto) 0.11 (0.01-0.20) K/uL VBG pH (7.36-7.41) VBG pCO2 (38-50) mmHg VBG pO2 mmHg VBG HCO3 mmol/L VBG O2 Saturation % VBG Base Excess mEq/L Sodium 137 (136-145) mmol/L Potassium 5.0 (3.5-5.1) mmol/L Chloride 102 (98-107) mmol/L Carbon Dioxide 31 (21-32) mmol/L Anion Gap 4 (3-11) BUN 31 H (6-23) mg/dl Creatinine 2.13 H (0.6-1.4) mg/dl Est Cr Clr Drug Dosing Not Reportable Est GFR ( Amer) 35.3 ml/min Est GFR (Non-Af Amer) 30.4 ml/min BUN/Creatinine Ratio 14.6 (10-20) Glucose 98 (70-99(Fasting)) mg/dl Lactate (0.4-2.0) mmol/L Calcium 9.4 (8.5-10.1) mg/dl Magnesium 2.0 (1.7-2.4) mg/dl Total Bilirubin 1.1 H (0.2-1.0) mg/dl Direct Bilirubin 0.3 H (0-0.2) mg/dl AST 20 (13-39) U/L ALT 17 (7-52) U/L Alkaline Phosphatase 43 (34-104) U/L Troponin I High Sens 11.5 (0-20) pg/ml Total Protein 7.4 (6.0-8.3) gm/dl Albumin 4.5 (3.4-5.0) gm/dl Procalcitonin (0-0.5) ng/ml SARS-CoV-2 (PCR) NEGATIVE (Negative) Influenza Type A (PCR) Negative (Neg) Influenza Type B (PCR) Negative (Neg) RSV (RT-PCR) Negative (Neg) 06/10/22 06/10/22 06/10/22 Range/Units 22:44 22:44 22:45 WBC (4.8-10.8) K/ul RBC (4.70-6.10) M/uL Hgb (14.0-18.0) g/dl Hct (42.0-52.0) % MCV (80.0-100.0) fL MCH (25.0-34.0) pg MCHC (32.0-36.0) g/dL RDW Std Deviation (36.4-46.3) fL RDW Coeff of Netta (11.5-14.5) % Plt Count (130-400) K/uL MPV (9.4-12.4) fL Immature Gran % (Auto) % Neut % (Auto) % Lymph % (Auto) % [place] % (Auto) % Eos % (Auto) % Baso % (Auto) % Neut # (Auto) (1.40-6.50) K/uL Lymph # (Auto) (1.2-3.4) K/uL [place] # (Auto) (0.11-0.59) K/uL Eos # (Auto) (0-0.50) K/uL Baso # (Auto) (0-0.2) K/uL Immature Gran # (Auto) (0.01-0.20) K/uL VBG pH 7.28 L (7.36-7.41) VBG pCO2 69 H (38-50) mmHg VBG pO2 32 mmHg VBG HCO3 32 mmol/L VBG O2 Saturation < 60.0 % VBG Base Excess 3.5 mEq/L Sodium (136-145) mmol/L Potassium (3.5-5.1) mmol/L Chloride (98-107) mmol/L Carbon Dioxide (21-32) mmol/L Anion Gap (3-11) BUN (6-23) mg/dl Creatinine (0.6-1.4) mg/dl Est Cr Clr Drug Dosing Est GFR ( Amer) ml/min Est GFR (Non-Af Amer) ml/min BUN/Creatinine Ratio (10-20) Glucose (70-99(Fasting)) mg/dl Lactate 0.6 (0.4-2.0) mmol/L Calcium (8.5-10.1) mg/dl Magnesium (1.7-2.4) mg/dl Total Bilirubin (0.2-1.0) mg/dl Direct Bilirubin (0-0.2) mg/dl AST (13-39) U/L ALT (7-52) U/L Alkaline Phosphatase (34-104) U/L Troponin I High Sens (0-20) pg/ml Total Protein (6.0-8.3) gm/dl Albumin (3.4-5.0) gm/dl Procalcitonin < 0.05 (0-0.5) ng/ml SARS-CoV-2 (PCR) (Negative) Influenza Type A (PCR) (Neg) Influenza Type B (PCR) (Neg) RSV (RT-PCR) (Neg) Imaging Data Attestation: I personally reviewed and interpreted this imaging study as follows: Radiologist's Impression: Head CT 06/10/22 22:31 CT SCAN OF THE BRAIN WITHOUT IV CONTRAST CLINICAL HISTORY: Change in mental status. COMPARISON STUDY: CT of the brain dated 02/22/2022. TECHNIQUE: Unenhanced axial CT scan of the brain is performed from the vertex to the skull base. A dose lowering technique was utilized adhering to the principles of ALARA. The patient was scanned twice due to motion artifact. CT DOSE: 3199.93 mGy.cm FINDINGS: Brain parenchyma: There is age-related involutional change noting mild subcortical and periventricular microangiopathic disease. There is no hemorrhage, mass effect, or evidence of acute territorial ischemia by CT criteria. Rain-white matter differentiation is preserved. No extra-axial fluid collection is seen. Ventricles, sulci, cisterns: Prominent secondary to involutional change. Intracranial vasculature: There is atherosclerotic calcification of the cavernous carotid arteries. Calvarium: Unremarkable. Sinuses and mastoids: The visualized paranasal sinuses are clear. The mastoid air cells are well pneumatized. Orbits: The bony orbits are grossly intact. IMPRESSION: There is no hemorrhage, mass effect, or evidence of acute territorial ischemia by CT criteria. ACT 112: Negative or not required by law. Electronically signed by: Kody Leonardo M.D. 06/11/2022 6:11 AM Abdomen/Pelvis CT 06/10/22 23:20 CT SCAN OF THE CHEST, ABDOMEN, AND PELVIS WITHOUT IV CONTRAST CLINICAL HISTORY: Change in mental status. Dyspnea. Lower abdominal pain. COMPARISON STUDY: Chest x-ray dated 06/10/2022. Chest CT dated 03/12/2020. Abdominal CT dated 06/11/2022. TECHNIQUE: Unenhanced CT scan of the chest, abdomen, and pelvis was performed from the thoracic inlet to the proximal femora. Images are reviewed in the axia l, sagittal, and coronal planes. IV contrast was not administered as per the referring clinician. Note that the examinations were performed and significant with suboptimal fashion without oral and IV contrast. There is also motion artifact, as well as streak artifact from the arms which could not be elevated above the chest or abdomen. A dose lowering technique was utilized adhering to the principles of ALARA. FINDINGS: CHEST: Thyroid: Imaged portions of the thyroid gland are normal in size and attenuation. Thoracic aorta: The thoracic aorta is normal in caliber and demonstrates standard 3-vessel arch anatomy. Heart: The heart is top normal in size and without pericardial effusion. The coronary arteries are densely calcified. Lungs and pleural spaces: There is no airspace consolidation or pleural effusion. Chronic elevation of the right hemidiaphragm is similar to previous with foci of scarring/atelectasis. The trachea and central airways are clear. Scattered (at least 5) subcentimeter pulmonary and pleural-based nodules are si milar to prior studies. A security systems sales representative 5 mm pleural-based nodule at the right lung base is seen on image were 217 and a security systems sales representative 5 mm nodule in the lingula is seen on image #134. Mediastinum: Scattered mediastinal lymph nodes measure up to 10 mm in short axis. These are similar to previous. Liza: Not well assessed without IV contrast. Axillae: There is no axillary lymphadenopathy. Bony thorax: The skeletal structures are osteopenic. Degenerative change is noted in the shoulders and thoracic spine. There are mild chronic thoracic compression deformities. A hemangioma is noted in the manubrium. No lytic or blastic lesions are identified. There are chronic/old right-sided rib fractures. ABDOMEN AND PELVIS: Liver: The unenhanced liver is normal in size, contour, and attenuation. There is no intrahepatic biliary ductal dilatation. Gallbladder: Gallstones are noted. There is no CT evidence of acute cholecystitis. Spleen: Normal in size and attenuation. Pancreas: The unenhanced pancreas is grossly unremarkable. Adrenal glands: Unremarkable. Kidneys: The unenhanced kidneys are normal in size and without hydronephrosis. No renal calculi are identified. There is no evidence of contour deforming mass lesion. Abdominal vasculature: The abdominal aorta is normal in course and caliber noting moderate atherosclerotic calcification. Bowel: There is moderate constipation. No bowel obstruction is seen. There are scattered colonic diverticula without CT evidence of acute diverticulitis. The appendix is dilated, measuring to 10 mm as seen on image #295. There is no gas within the lumen and the wall appears mildly thickened. There is no significant periappendiceal infiltration. Appendiceal caliber represents is unchanged from 05/31/2022. Peritoneum: There is no intraperitoneal free air or abdominal ascites. There is a small fat-containing umbilical hernia. Lymphadenopathy: A prominent left pelvic sidewall node seen on image #434 measures 9 mm in short axis. This is unchanged from prior studies. Pelvic viscera: The prostate gland is mildly enlarged and heterogeneous. The bladder is normal as visualized Skeletal structures: The skeletal structures are osteopenic. There is moderate to advanced in the sacral spondylosis. No lytic or blastic lesions are seen. IMPRESSION: 1. Suboptimal examinations without oral and IV contrast. The examinations are also degraded by streak and motion artifact. 2. There is no airspace consolidation or pleural effusion. 3. Stable appearance of the appendix as compared 05/31/2022. This is dilated and fluid-filled, measuring up to 10 mm. There is no significant surrounding inflammation. Early/mild appendicitis is not excluded and clinical correlation will be essential. 4. Moderate constipation. 5. Cholelithiasis. 6. Additional findings as above. ACT 112: Negative or not required by law. Electronically signed by: Kody Leonardo M.D. 06/11/2022 7:[address] 06/10/22 23:20 CT SCAN OF THE CHEST, ABDOMEN, AND PELVIS WITHOUT IV CONTRAST CLINICAL HISTORY: Change in mental status. Dyspnea. Lower abdominal pain. COMPARISON STUDY: Chest x-ray dated 06/10/2022. Chest CT dated 03/12/2020. Abdominal CT dated 06/11/2022. TECHNIQUE: Unenhanced CT scan of the chest, abdomen, and pelvis was performed from the thoracic inlet to the proximal femora. Images are reviewed in the axial, sagittal, and coronal planes. IV contrast was not administered as per the referring clinician. Note that the examinations were performed and significant with suboptimal fashion without oral and IV contrast. There is also motion artifact, as well as streak artifact from the arms which could not be elevated above the chest or abdomen. A dose lowering technique was utilized adhering to the principles of ALARA. FINDINGS: CHEST: Thyroid: Imaged portions of the thyroid gland are normal in size and attenuation. Thoracic aorta: The thoracic aorta is normal in caliber and demonstrates standard 3-vessel arch anatomy. Heart: The heart is top normal in size and without pericardial effusion. The coronary arteries are densely calcified. Lungs and pleural spaces: There is no airspace consolidation or pleural e ffusion. Chronic elevation of the right hemidiaphragm is similar to previous with foci of scarring/atelectasis. The trachea and central airways are clear. Scattered (at least 5) subcentimeter pulmonary and pleural-based nodules are similar to prior studies. A security systems sales representative 5 mm pleural-based nodule at the right lung base is seen on image were 217 and a security systems sales representative 5 mm nodule in the lingula is seen on image #134. Mediastinum: Scattered mediastinal lymph nodes measure up to 10 mm in short axis. These are similar to previous. Liza: Not well assessed without IV contrast. Axillae: There is no axillary lymphadenopathy. Bony thorax: The skeletal structures are osteopenic. Degenerative change is noted in the shoulders and thoracic spine. There are mild chronic thoracic compression deformities. A hemangioma is noted in the manubrium. No lytic or blastic lesions are identified. There are chronic/old right-sided rib fractures. ABDOMEN AND PELVIS: Liver: The unenhanced liver is normal in size, contour, and attenuation. There is no intrahepatic biliary ductal dilatation. Gallbladder: Gallstones are noted. There is no CT evidence of acute cholecystitis. Spleen: Normal in size and attenuation. Pancreas: The unenhanced pancreas is grossly unremarkable. Adrenal glands: Unremarkable. Kidneys: The unenhanced kidneys are normal in size and without hydronephrosis. No renal calculi are identified. There is no evidence of contour deforming mass lesion. Abdominal vasculature: The abdominal aorta is normal in course and caliber noting moderate atherosclerotic calcification. Bowel: There is moderate constipation. No bowel obstruction is seen. There are scattered colonic diverticula without CT evidence of acute diverticulitis. The appendix is dilated, measuring to 10 mm as seen on image #295. There is no gas within the lumen and the wall appears mildly thickened. There is no significant periappendiceal infiltration. Appendiceal caliber represents is unchanged from 05/31/2022. Peritoneum: There is no intraperitoneal free air or abdominal ascites. There is a small fat-containing umbilical hernia. Lymphadenopathy: A prominent left pelvic sidewall node seen on image #434 measures 9 mm in short axis. This is unchanged from prior studies. Pelvic viscera: The prostate gland is mildly enlarged and heterogeneous. The bladder is normal as visualized Skeletal structures: The skeletal structures are osteopenic. There is moderate to advanced in the sacral spondylosis. No lytic or blastic lesions are seen. IMPRESSION: 1. Suboptimal examinations without oral and IV contrast. The examinations are also degraded by streak and motion artifact. 2. There is no airspace consolidation or pleural effusion. 3. Stable appearance of the appendix as compared 05/31/2022. This is dilated and fluid-filled, measuring up to 10 mm. There is no significant surrounding inflammation. Early/mild appendicitis is not excluded and clinical correlation will be essential. 4. Moderate constipation. 5. Cholelithiasis. 6. Additional findings as above. ACT 112: Negative or not required by law. Electronically signed by: Kody Leonardo M.D. 06/11/2022 7:45 AM MDM Narrative Prior records/ancillary studies reviewed and summarized above. Nursing notes reviewed. Additional history obtained from family. The patient's history was concerning for increased confusion, low pulse ox, low blood pressure and not feeling right. Differential diagnosis: Etiologies such as metabolic, infection, hypo/hyperglycemia, electrolyte abnormalities, cardiac sources, intracerebral event, toxicologic, neurologic, as well as others were entertained. Physical examination: As above. ER treatment provided: IV Lock An order was placed for continuous cardiac monitoring. The monitor shows a rate of 60-1 50 with a sinus rhythm per my interpretation. IV fluids, Zosyn, BiPAP On reassessment the patient felt better. Diagnostics interpretation by me: ECG: Ordered for weakness EKG: Poor baseline, normal sinus, normal intervals, no acute ST-T wave changes. Impression sinus tachycardia of 110 interpreted by myself I think arrhythmia is unlikely. EKG shows normal sinus rhythm with no interval abnormalities such as QT prolongation or WPW. There are no findings to suggest Brugada syndrome. Cardiac monitoring in the emergency department reveals no tachycardic or bradycardic dysrhythmia. Hypertrophic cardiomyopathy was considered but there are no clear historical elements pointing toward this. EKG is not suggestive. The QRS voltage is not extremely large and there are no suggestive Q waves. The labs Independently Interpreted by myself revealed leukocytosis, VBG was reviewed and patient was placed on BiPAP. Acute kidney injury Blood cultures pending Imaging studies: Chest x-ray with no acute consolidation, pneumothorax or free air per my in terpretation CT HEAD: No ICH, mass effect or edema. No evidence of acute cortical stroke. Periventricular small vessel ischemic change. Visualized sinuses and mastoid air cells are clear. CT CHEST Without Contrast: No acute airspace disease or effusions Mild dependent atelectasis Probable subtle pleuroparenchymal scarring noted right lower lobe Grossly normal central and peripheral airways The heart size is normal Coronary artery calcifications incidentally noted CT ABDOMEN & PELVIS Without Contrast: The appendix measures 9-10 mm in transverse plane which is prominent. Equivocal trace periappendiceal stranding is present. The findings may reflect the patient's baseline versus an early appendicitis and clinical correlation recommended to assess for right lower quadrant symptoms Solid organs unremarkable The gallbladder contains stones and sludge but is otherwise unremarkable The small and large bowel are grossly normal Radiologist: Adis Wetzel MD Study ready at 00:20 and initial results transmitted at 01:20 Communications: Clear Time Type Notes Call Doctor Appendicitis Consultation: A consultation was placed with the hospitalist. The case was discussed and diagnostics were reviewed. The patient was evaluated in the ER for further treatment. Surgery was consulted and will evaluate the patient. Surgery states the patient does not have an appendicitis and recommends medical admission. I consulted radiology over the CAT scan reads and they are concerned the patient has an early appendicitis. Exam and history seem consistent with acute respiratory failure and patient was placed on BiPAP. He was started on antibiotics for possible infection. He was reassessed multiple times. He was medicated as above. Medicine is consulted and he will be admitted. Labs and diagnostics were independently interpreted by myself. Surgery, medicine and radiology were consulted and the case was discussed. Patient will be admitted to the medical team. By the evaluation outlined above emergent etiologies such as electrolyte abnormalities, intracerebral event, toxologic, neurologic, abnormalities blood glucose, metabolic, as well as others were deemed relatively unlikely. The pt informed about the findings as listed above. All questions were answered and pleased with the treatment. The chart was completed utilizing [employer] voice recognition software. Grammatical errors, random word insertions, pronoun errors, and incomplete sentences are an occassional consequence of this system due to software limitations, ambient noise, and hardware issues. Any formal questions or concerns about the content, text, or information contained within the body of this dictation should be directly addressed to the physician assistant restaurant general manager for clarification. Attending Attestation: I Chris Alfaro MD independently saw and evaluated this patient and agree with history and physical is otherwise documented by the physician assistant restaurant general manager. See their note for full details. Patient seated on stretcher with at bedside on O2. Not hismself today breathing issues and hypoxia? at home reported. Some increased work of breathing here but alert and interactive. VBG with some hypercarbia and reports he is not himself. Bipap initiated. Recent hospitalization reviewed. Imaging with continued dilatation of appendix. Empiric abx. Surgical consultation for additional recs regarding this. Given his respiratory issued given nebs and steroid issues. Hospitalist consulted for admission. Impression & Plan Acute hypercapnic respiratory failure, Acute kidney injury Discharge Plan Visit Data Chief Complaint: Shortness of Breath/Dyspnea Stated Complaint: ERRATIC HEART RATE, LOW O2 ED Provider: Chris Alfaro ED Midlevel Provider: Emiliana Sykes Discharge Problem: Acute hypercapnic respiratory failure, Acute kidney injury Patient Disposition: Admitted As Inpatient Condition: Fair Discharge Instructions Interventions: ED Discharge Assessment Last Done: 06/11/22 03:50
[2022-06-10] MEDS ORDERED: PIPERACILLIN/TAZOBACTAM 4.5 GM/120 ML BAG IV ONE (22:37)
[2022-06-10] MEDS ORDERED: SODIUM CHLORIDE 0.9% 1000ML 500 ML IV SCH (22:45)
[2022-06-10 22:58] LABS: Base Excess VBG 3.5 mEq/L; HCO3 VBG 32 mmol/L; Oxygen Saturation VBG < 60.0 %; PCO2 VBG 69 mmHg (38-50); PO2 VBG 32 mmHg; pH VBG 7.28 (7.36-7.41)
[2022-06-10 23:11] LABS: Basophils # (auto) 0.08 K/uL (0-0.2); Basophils % (auto) 0.6 %; Eosinophils # (auto) 0.07 K/uL (0-0.50); Eosinophils % (auto) 0.5 %; Hematocrit (blood only) 45.6 % (42.0-52.0); Immature Granulocytes # (auto) 0.11 K/uL (0.01-0.20); Immature Granulocytes % (auto) 0.8 %; Lymphocytes % (auto) 8.4 %; Mean Corpuscular Hemoglobin 32.7 pg (25.0-34.0); Mean Corpuscular Hgb Conc 32.9 g/dL (32.0-36.0); Mean Corpuscular Volume 99.3 fL (80.0-100.0); Mean Platelet Volume 9.7 fL (9.4-12.4); Monocytes # (auto) 1.17 K/uL (0.11-0.59); Monocytes % (auto) 8.2 %; Neutrophils # (auto) 11.71 K/uL (1.40-6.50); Neutrophils % (auto) 81.5 %; Platelet Count 269 K/uL (130-400); RDW Coefficient of Variation 15.9 % (11.5-14.5); RDW Standard Deviation 58.6 fL (36.4-46.3); Red Blood Count 4.59 M/uL (4.70-6.10); White Blood Count 14.34 K/ul (4.8-10.8)
[2022-06-10 23:17] LABS: Alanine Aminotransferase 17 U/L (7-52); Albumin Level 4.5 gm/dl (3.4-5.0); Alkaline Phosphatase 43 U/L (34-104); Anion Gap 4 (3-11); Aspartate Aminotransferase 20 U/L (13-39); BUN Creatinine Ratio 14.6 (10-20); Bilirubin Direct 0.3 mg/dl (0-0.2); Bilirubin,Total 1.1 mg/dl (0.2-1.0); Blood Urea Nitrogen 31 mg/dl (6-23); Calcium 9.4 mg/dl (8.5-10.1); Carbon Dioxide 31 mmol/L (21-32); Chloride 102 mmol/L (98-107); Est GFR (African American) 35.3 ml/min; Est GFR (Non-African American) 30.4 ml/min; Glucose 98 mg/dl (70-99(Fasting)); Sodium 137 mmol/L (136-145); Total Protein 7.4 gm/dl (6.0-8.3)
[2022-06-10 23:23] LABS: Troponin I High Sensitivity 11.5 pg/ml (0-20)
[2022-06-10 23:33] LABS: Influenza A virus by PCR Negative (Neg); Influenza B virus by PCR Negative (Neg); RSV by PCR Negative (Neg); SARS CoV2 RNA(COVID-19) Ceph NEGATIVE (Negative)
--- NOTE | 2022-06-11 00:06 | XRay Report ---
XR chest 1V portable HISTORY: 71 years-old Male Sepsis acute sepsis COMPARISON: Chest radiograph 05/31/2022 TECHNIQUE: AP view the chest FINDINGS: Cardiac mediastinal and hilar silhouettes are unchanged. Chronic interstitial coarsening with unchang ed right hemidiaphragmatic elevation. No pneumothorax, pleural effusion, airspace consolidation or ov ert pulmonary edema. Degenerative changes of the shoulders and spine. IMPRESSION: No acute process. ACT 112: Negative or not required by law. The above report was generated using voice recognition software. It may contain grammatical, syntax o r spelling errors. Electronically signed by: Marco Stewart M.D. 06/11/2022 12:04 AM
--- NOTE | 2022-06-11 01:56 | Surgery Consultation ---
Date of Consultation June 11, 2022 Assessment & Plan (1) Abnormal CT scan: I discussed with the treating clinician emergency department and due to patient's underlying presentation with hypoxia, relative hypotension, acute kidney injury and confusion the patient is being made on the hospitalist service. Concerning the patient's CT scan it does appear the patient has a dilated appendix but this is similar to what was noted during his recent admission on May 31 of this year. He was also noted to have some trace periappendiceal stranding without convincing evidence of acute appendicitis. At the time of my interview and exam of the patient his abdominal exam was completely benign and the patient notes that he did not have any abdominal pain prior to his presentation. He also was not having any fevers or nausea or vomiting. I would be hesitant to take the patient to surgery due to to his underlying presenting issues. I would therefore recommend proceeding as follows: Admit to medical service for management of his presenting complaints We will keep the patient n.p.o. for the present time Empiric Zosyn has been initiated and would recommend continuing this for the present time We will follow serial abdominal exams and if there is any worsening of his abdominal exam or physical findings concerning for acute appendicitis we can consider surgery at that time we will consider repeat imaging Supervising Physician Co-Signing Physician Notes As per Sy Colbert physician graphic design assistant Examined the patient in the proximal 1015 this morning where he was resting comfortably moving around without any issues his main concern was that he was hungry On examination supine position the abdomen is completely benign and the CT scan findings in the right lower quadrant are not consistent with the physical findi ngs At this point I recommend to have a regular diet and follow the right lower quadrant for any developing discomfort Patient is to be seen by pulmonary Order for regular diet given At this time general surgery will sign off History of Present Illness Reason for Consultation: Abnormal CT scan with possible appendicitis History of Present Illness This is a 71-year-old male who is known to [facility] general surgery. Patient was previously seen on May 31 in the emergency department this patient presented to the emergency department secondary to lightheadedness, dizziness, and tachycardia. He was noted to be in SVT emergency department and required adenosine. He was admitted and seen by cardiology who recommended patient be initiated on a beta-royal. During his time in the emergency department he did have some left-sided abdominal pain and he did have a CT scan of his abdomen and pelvis at that time that showed he had a dilated appendix at 10 mm with some faint periappendiceal infiltration, with the interpreting radiologist not able to exclude an acute appendicitis. Due to the patient's underlying cardiac presentation he was not taken to the operating room and treated medically with antibiotics and he was ultimately discharged without undergoing surgery and discharged on Cipro and Flagyl which he continues to take as he has not completed the full course of antibiotics yet. Patient presented to the emergency department today due to some worsening confusion. Patient's was present at bedside and supplemented the history who notes that the patient appeared to just not be quite like himself being more confused, dropping things and appeared somewhat short of breath. When the patient presented to the emergency department he was noted to be hypoxic with a pulse ox as low as 75%. He was also noted to have some episodes of relative hypotension with blood pressure as low as 101/73. The patient says that he is somewhat short of breath and does get some occasional substernal chest pain. I question him abdominal complaints and he notes that he does not have any abdominal pain. He has not had any nausea or vomiting. He has not had any fevers, shakes, or chills. He says that prior to admission to the emergency department he was eating okay and notes that his bowels were working appropriately. Since arrival to the emergency department today the patient has had labs and imaging which I independent reviewed. He had a CT scan of the head that showed no acute intracranial process. Chest x-ray was negative for pneumonia. He did have a CT scan of the chest that did not show any evidence of pneumonia. There are some chronic scarring noted in the right lung. CT scan of the abdomen showed that patient had a dilated appendix measuring 9 to 10 mm with some trace periappendiceal stranding. The interpreting radiologist could not exclude an early appendicitis. The patient was noted to have stones and sludge in his gallbladder but there were no other signs indicative of acute cholecystitis Labs include a CBC were white blood cell count was 14.3 (during his a for mention admission his white blood cell count was normal) patient's hemoglobin, hematocrit, platelet count were normal. Chemistry profile showed sodium and potassium were normal. His BUN and creatinine were 31 and 2.1. (During his a for mention admission his creatinine was noted to be normal) patient's total bilirubin and direct bilirubin 1.1 and 0.3 respectively. His LFTs were otherwise unremarkable. He was tested for COVID, RSV, and influenza all of which were negative. Of note the patient also had a VBG where he was noted to have a CO2 level of 69. (Review of past records show that his baseline is in the mid 50s to 60 range) Since arrival to the emergency department the patient has not received the required any analgesics. He has been given antibiotics in form of Zosyn. He has been placed on BiPAP and he was able to converse with me. Allergies Allergy/AdvReac Type Severity Reaction Status Date / Time bee venom protein (honey bee) Allergy Intermediate EXCESSIVE Verified 06/11/22 00:38 SWELLING AT SITE sulfamethoxazole Allergy Intermediate TONGUE Verified 06/11/22 00:38 SWELLS, WHITE BLISTERS IN MOUTH. trimethoprim Allergy Intermediate TONGUE Verified 06/11/22 00:38 SWELLS, WHITE BLISTERS IN MOUTH. adhesive Allergy Mild SKIN Verified 06/11/22 00:38 IRRITATION morphine AdvReac Intermediate PROJECTILE Verified 06/11/22 00:38 VOMITING Home Medications Medication Instructions Recorded Confirmed Type cyclobenzaprine 10 mg tablet 10 mg PO HS 02/28/19 06/11/22 History omeprazole 20 mg capsule,delayed 20 mg PO HS 02/28/19 06/11/22 History release pramipexole 0.5 mg tablet 0.5 mg PO HS 02/28/19 06/11/22 History loratadine 10 mg tablet (Claritin) 10 mg PO DAILY PRN Congestion 03/13/19 06/11/22 History ondansetron 4 mg disintegrating 4 mg PO Q8H PRN Nausea And Vomiting 04/10/19 06/11/22 History tablet cholecalciferol (vitamin D3) 25 2,000 units PO HS 06/10/19 06/11/22 History mcg (1,000 unit) capsule lisinopril 5 mg tablet 5 mg PO HS 08/02/19 06/11/22 History alfuzosin 10 mg tablet,extended 10 mg PO HS 02/12/20 06/11/22 History release 24 hr dicyclomine 10 mg capsule 10 mg PO BID PRN ABD PAIN 02/12/20 06/11/22 History famotidine 20 mg tablet 20 mg PO HS 03/08/20 06/11/22 History pravastatin 40 mg tablet 20 mg PO HS 11/04/21 06/11/22 History ascorbic acid (vitamin C) 500 mg 250 mg PO HS 01/11/22 06/11/22 History tablet ferrous sulfate 325 mg (65 mg 325 mg PO Q OTHER DAY 01/11/22 06/11/22 History iron) tablet folic acid 1 mg tablet 1 mg PO HS 01/11/22 06/11/22 History aspirin 81 mg tablet,delayed 81 mg PO HS 02/22/22 06/11/22 History release (Alice Low Dose Aspirin) fentanyl 100 mcg/hr transdermal 100 mcg transdermal Q48H 02/22/22 06/11/22 History patch naloxegol 25 mg tablet 25 mg PO QAM 03/23/22 06/11/22 History gabapentin 300 mg capsule 300 mg PO TID #90 caps 05/25/22 06/11/22 Rx cyanocobalamin (vitamin B-12) 2,500 mcg PO HS 05/31/22 06/11/22 History 2,500 mcg tablet ciprofloxacin HCl 500 mg tablet 500 mg PO BID #15 tabs 06/03/22 06/11/22 Rx (Cipro) metoprolol tartrate 25 mg tablet 25 mg PO BID #60 tabs 06/03/22 06/11/22 Rx metronidazole 500 mg tablet 500 mg PO TID #22 tabs 06/03/22 06/11/22 Rx testosterone (AndroGel) 2 pump topical HS #75 grams 06/08/22 06/11/22 Rx Patient History Medical History (Updated 06/11/22 @ 11:03 by Mo King MD) Acute on chronic respiratory failure with hypoxemia Atypical chest pain BPH (benign prostatic hyperplasia) Chronic back pain Chronic respiratory failure Depression GERD (gastroesophageal reflux disease) History of acute renal failure Hypertension Hypogonadotropic hypogonadism in male Hypoxia Leukocytosis Metabolic encephalopathy Non-ST elevation [place] (NSTEMI) Prostatitis Recurrent pneumonia RLS (restless legs syndrome) Surgical History History of ankle surgery Britton reconstruction-right side History of carpal tunnel release History of mandibular surgery History of surgery mass removed from left side of clavicle Status post trigger finger release Family History Mother Cancer Hypertension Myasthenia gravis Son Environmental allergies Asthma Sister Gallbladder disease Father Alzheimer disease Other No family history of bleeding disorder Social History Smoking Status: Never smoker Tobacco Type: Cigarettes Second Hand Exposure: No; Hx Alcohol Use: No Hx Substance Use: No Preferred Language: Mongolian Communication Ability: Effective Learning Support Teacher Required: No Beliefs That Will Affect Care: None marital status: Current Living Situation: Spouse current occupational status: retired Other Information That Helps Us Care for You: No Feels Safe at Home: Yes Safety Concerns: Feels Safe At This Time Assistive Devices: Cane, CPAP, Denture - Upper and Denture - Lower Review of Systems Constitutional: no fever and no chills Eyes: no diplopia Ear, Nose, Mouth, Throat: no ear pain Respiratory: + dyspnea; no cough Cardiovascular: + chest pain Gastrointestinal: no abdominal pain, no nausea, no vomiting, no constipation and no diarrhea/loose stools Genitourinary: no dysuria Musculoskeletal: no back pain Integumentary: no rash Neurologic: no localized weakness Physical Exam Constitutional: WD/WN, vitals as above Eyes: no conjunctival abnormality ENMT: Ears: no hearing impairment and no external ear abnormality Mouth: no oropharynx abnormality Neck: trachea midline Respiratory: normal respiratory effort; no respiratory distress and no labored breathing Breath sounds are present bilaterally without any wheezing or use of accessory muscles. He was on BiPAP at the time of my interview and was not in respiratory distress. Cardiovascular: Rate/Rhythm: regular rate and regular rhythm Gastrointestinal (Abdomen): Patient's abdomen is soft, nonrigid, and nondistended. With light and deep palpation there is no pain in any area of his abdomen at the time of my exam. There is no rebound tenderness or guarding. Bowel sounds are present. Musculoskeletal: No calf tenderness. Patient was noted to have trace to 1+ lower extremity edema bilaterally Skin: no rashes Neurologic: moves all extremities Psychiatric: A+Ox3, euthymic affect Results & Data ([facility]) Vital Signs (Past 12 Hours) Vital Signs Temp Pulse Pulse Resp BP BP Pulse Ox 06/11/22 01:34 98 06/11/22 01:30 102 H 21 118/60 97 06/11/22 00:40 105 H 15 94 06/11/22 00:30 108 H 18 92 06/11/22 00:30 101/73 06/11/22 00:20 112 H 17 93 06/11/22 00:13 95 06/10/22 23:50 111 H 21 75 L 06/10/22 23:46 156/81 H 06/10/22 23:46 114 H 22 91 06/10/22 23:40 113 H 19 94 06/10/22 23:31 156/105 H 06/10/22 23:31 115 H 27 H 92 06/10/22 23:30 115 H 20 92 06/10/22 23:20 119 H 18 90 06/10/22 23:15 110 H 19 99 06/10/22 23:15 106/87 06/10/22 23:13 111 H 18 94 06/10/22 23:13 146/86 H 06/10/22 23:10 112 H 22 92 06/10/22 23:00 113 H 16 95 06/10/22 22:50 114 H 25 H 88 L 06/10/22 22:40 107 H 15 96 06/10/22 22:36 113 H 17 94 06/11/22 00:44 105 H 101/73 93 06/10/22 22:47 112 H 22 97 06/10/22 22:31 109 H 06/10/22 22:56 115 H 95 06/10/22 23:14 112 H 20 146/86 H 97 06/10/22 22:15 36.8 C 109 H 18 138/82 98 O2 Del Method O2 Flow Rate FiO2 06/11/22 01:34 BiPAP 06/11/22 01:30 BiPAP 06/11/22 00:40 06/11/22 00:30 06/11/22 00:30 06/11/22 00:20 06/11/22 00:13 06/10/22 23:50 06/10/22 23:46 06/10/22 23:46 06/10/22 23:40 06/10/22 23:31 06/10/22 23:31 06/10/22 23:30 06/10/22 23:20 06/10/22 23:15 06/10/22 23:15 06/10/22 23:13 06/10/22 23:13 06/10/22 23:10 02/18/23 23:00 06/10/22 22:50 06/10/22 22:40 06/10/22 22:36 06/11/22 00:44 BiPAP 06/10/22 22:47 35 06/10/22 22:31 06/10/22 22:56 Nasal Cannula 3 06/10/22 23:14 Nasal Cannula 3 06/10/22 22:15 Nasal Cannula 3 PG Care Time/CCT Total # of Minutes Spent Total Time Spent with Patient: Total time spent is greater than 50% in coordination of care (as documented) at patient's floor/unit and/or counseling patient: Coding Level of Care Code 00467 INT INP/OBS CARE 3/75MIN Diagnoses Abnormal CT scan R93.89
--- NOTE | 2022-06-11 02:27 | History & Physical Report ---
Date of Service June 11, 2022 Assessment & Plan (1) Acute kidney injury: (2) RLS (restless legs syndrome): (3) Chronic pain: (4) SVT (supraventricular tachycardia): (5) Pituitary microadenoma: (6) PLMD (periodic limb movement disorder): (7) Severe obstructive sleep apnea: (8) Pulmonary hypertension: (9) Depression: (10) GERD (gastroesophageal reflux disease): (11) Hypertension: (12) Acute on chronic respiratory failure with hypoxemia: Plan Acute on chronic respiratory failure with hypoxemia and hypercapnia- Usually is on CPAP at home Pulse ox 75% on room air on arrival Continue BiPAP at current settings, and taper to nasal cannula oxygen as symptoms improve, with target pulse ox 92% Methylprednisolone 40 mg IV every 8 hours Duonebs every 4 hours while awake and every 2 hours when necessary. Azithromycin 500 mg IV daily Consult his cvicu rn Dr. King Acute kidney injury- Creatinine 2.13 on admission, with base 1.12 Hold lisinopril due to creatinine, and potassium of 5.0 Received 500 mils normal saline from the ED Place on NSS at 60 mils per hour x1 L Repeat laboratories every morning SVT history/hypertension- Continue metoprolol tartrate 25 mg p.o. twice daily and aspirin 81 mg daily Holding lisinopril above as noted GERD- Continue pantoprazole 40 mg daily and famotidine 20 mg daily RLS- Continue pramipexole 0.5 mg at bedtime Chronic pain syndrome- Continue fentanyl patch 100 mcg changing every 48 hours, gabapentin 300 mg p.o. 3 times daily, cyclobenzaprine 10 mg p.o. at bedtime Hyperlipidemia- Continue pravastatin 20 mg at bedtime Testosterone deficiency- Continue AndroGel pump topically once daily BPH- Continue alfuzosin 10 mg at bedtime B12 deficiency- Continue supplement 2500 mcg daily Vitamin D deficiency- Continue supplement 2000 international units daily DVT prophylaxis- Lovenox 40 mg subcu every 24 hours History of Present Illness Primary Care Provider: MATEO Alcazar Allergies Allergy/AdvReac Type Severity Reaction Status Date / Time bee venom protein (honey bee) Allergy Intermediate EXCESSIVE Verified 06/11/22 00:38 SWELLING AT SITE sulfamethoxazole Allergy Intermediate TONGUE Verified 06/11/22 00:38 SWELLS, WHITE BLISTERS IN MOUTH. trimethoprim Allergy Intermediate TONGUE Verified 06/11/22 00:38 SWELLS, WHITE BLISTERS IN MOUTH. adhesive Allergy Mild SKIN Verified 06/11/22 00:38 IRRITATION morphine AdvReac Intermediate PROJECTILE Verified 06/11/22 00:38 VOMITING Home Medications Medication Instructions Recorded Confirmed Type cyclobenzaprine 10 mg tablet 10 mg PO HS 02/28/19 06/11/22 History omeprazole 20 mg capsule,delayed 20 mg PO HS 02/28/19 06/11/22 History release pramipexole 0.5 mg tablet 0.5 mg PO HS 02/28/19 06/11/22 History loratadine 10 mg tablet (Claritin) 10 mg PO DAILY PRN Congestion 03/13/19 06/11/22 History ondansetron 4 mg disintegrating 4 mg PO Q8H PRN Nausea And Vomiting 04/10/19 06/11/22 History tablet cholecalciferol (vitamin D3) 25 2,000 units PO HS 06/10/19 06/11/22 History mcg (1,000 unit) capsule lisinopril 5 mg tablet 5 mg PO HS 08/02/19 06/11/22 History alfuzosin 10 mg tablet,extended 10 mg PO HS 02/12/20 06/11/22 History release 24 hr dicyclomine 10 mg capsule 10 mg PO BID PRN ABD PAIN 02/12/20 06/11/22 History famotidine 20 mg tablet 20 mg PO HS 03/08/20 06/11/22 History pravastatin 40 mg tablet 20 mg PO HS 11/04/21 06/11/22 History ascorbic acid (vitamin C) 500 mg 250 mg PO HS 01/11/22 06/11/22 History tablet ferrous sulfate 325 mg (65 mg 325 mg PO Q OTHER DAY 01/11/22 06/11/22 History iron) tablet folic acid 1 mg tablet 1 mg PO HS 01/11/22 06/11/22 History aspirin 81 mg tablet,delayed 81 mg PO HS 02/22/22 06/11/22 History release (Alice Low Dose Aspirin) fentanyl 100 mcg/hr transdermal 100 mcg transdermal Q48H 02/22/22 06/11/22 History patch naloxegol 25 mg tablet 25 mg PO QAM 03/23/22 06/11/22 History gabapentin 300 mg capsule 300 mg PO TID #90 caps 05/25/22 06/11/22 Rx cyanocobalamin (vitamin B-12) 2,500 mcg PO HS 05/31/22 06/11/22 History 2,500 mcg tablet ciprofloxacin HCl 500 mg tablet 500 mg PO BID #15 tabs 06/03/22 06/11/22 Rx (Cipro) metoprolol tartrate 25 mg tablet 25 mg PO BID #60 tabs 06/03/22 06/11/22 Rx metronidazole 500 mg tablet 500 mg PO TID #22 tabs 06/03/22 06/11/22 Rx testosterone (AndroGel) 2 pump topical HS #75 grams 06/08/22 06/11/22 Rx Past Med/Surg History Medical History (Updated 06/11/22 @ 04:58 by Martínez Mo MD) Acute on chronic respiratory failure with hypoxemia Atypical chest pain BPH (benign prostatic hyperplasia) Chronic back pain Chronic respiratory failure Depression GERD (gastroesophageal reflux disease) History of acute renal failure Hypertension Hypogonadotropic hypogonadism in male Hypoxia Leukocytosis Metabolic encephalopathy Non-ST elevation CT (NSTEMI) Prostatitis Recurrent pneumonia RLS (restless legs syndrome) Surgical History History of ankle surgery Britton reconstruction-right side History of carpal tunnel release History of mandibular surgery History of surgery mass removed from left side of clavicle Status post trigger finger release Family History Mother Cancer Hypertension Myasthenia gravis Son Environmental allergies Asthma Sister Gallbladder disease Father Alzheimer disease Other No family history of bleeding disorder Social History Smoking Status: Never smoker Tobacco Type: Cigarettes Second Hand Exposure: No; Hx Alcohol Use: No Hx Substance Use: No Preferred Language: Azerbaijani Communication Ability: Effective Demurrage Man Required: No Beliefs That Will Affect Care: [employer] Beliefs: Baptist marital status: Current Living Situation: Spouse current occupational status: retired Feels Safe at Home: Yes Assistive Devices: CPAP Results & Data Results & Data ([facility]) Vital Signs (Past 12 Hours) Vital Signs Temp Pulse Pulse Resp BP BP Pulse Ox 06/11/22 01:34 98 06/11/22 01:30 102 H 21 118/60 97 06/11/22 00:40 105 H 15 94 02/19/23 00:30 108 H 18 92 06/11/22 00:30 101/73 06/11/22 00:20 112 H 17 93 06/11/22 00:13 95 06/10/22 23:50 111 H 21 75 L 06/10/22 23:46 156/81 H 06/10/22 23:46 114 H 22 91 06/10/22 23:40 113 H 19 94 06/10/22 23:31 156/105 H 06/10/22 23:31 115 H 27 H 92 06/10/22 23:30 115 H 20 92 06/10/22 23:20 119 H 18 90 06/10/22 23:15 110 H 19 99 06/10/22 23:15 106/87 06/10/22 23:13 111 H 18 94 06/10/22 23:13 146/86 H 06/10/22 23:10 112 H 22 92 06/10/22 23:00 113 H 16 95 06/10/22 22:50 114 H 25 H 88 L 06/10/22 22:40 107 H 15 96 06/10/22 22:36 113 H 17 94 06/11/22 00:44 105 H 101/73 93 06/10/22 22:47 112 H 22 97 06/10/22 22:31 109 H 06/10/22 22:56 115 H 95 06/10/22 23:14 112 H 20 146/86 H 97 06/10/22 22:15 36.8 C 109 H 18 138/82 98 O2 Del Method O2 Flow Rate FiO2 06/11/22 01:34 BiPAP 06/11/22 01:30 BiPAP 06/11/22 00:40 06/11/22 00:30 06/11/22 00:30 06/11/22 00:20 06/11/22 00:13 06/10/22 23:50 06/10/22 23:46 06/10/22 23:46 06/10/22 23:40 06/10/22 23:31 06/10/22 23:31 06/10/22 23:30 06/10/22 23:20 06/10/22 23:15 06/10/22 23:15 06/10/22 23:13 06/10/22 23:13 06/10/22 23:10 06/10/22 23:00 06/10/22 22:50 06/10/22 22:40 06/10/22 22:36 06/11/22 00:44 BiPAP 06/10/22 22:47 35 06/10/22 22:31 06/10/22 22:56 Nasal Cannula 3 06/10/22 23:14 Nasal Cannula 3 06/10/22 22:15 Nasal Cannula 3 Code Status & VTE Plan VTE Prophylaxis Plan VTE Prophylaxis will be ordered: Yes PG Care Time/CCT Total # of Minutes Spent Total Time Spent with Patient: Total time spent is greater than 50% in coordination of care (as documented) at patient's floor/unit and/or counseling patient: Coding Level of Care Code 87140 INT INP/OBS CARE 375MIN Diagnoses Acute kidney injury N17.9 RLS (restless legs syndrome) G25.81 Chronic pain G89.29 SVT (supraventricular tachycardia) I47.1 Pituitary microadenoma D35.2 PLMD (periodic limb movement disorder) G47.61 Severe obstructive sleep apnea G47.33 Pulmonary hypertension I27.20 Depression F32.9 GERD (gastroesophageal reflux disease) K21.9 Hypertension I10 Hypertension type: essential hypertension Acute on chronic respiratory failure with hypoxemia J96.21 (11) Hypertension Hypertension type: essential hypertension Qualified Code(s): I10 - Essential (primary) hypertension
[2022-06-11] MEDS ORDERED: DICYCLOMINE HCL 10 MG CAP PO PRN (04:19)
[2022-06-11] MEDS ORDERED: ONDANSETRON 4 MG OD TAB PO PRN (04:19)
[2022-06-11] MEDS ORDERED: LORATADINE 10 MG TAB PO PRN (04:19)
[2022-06-11] MEDS ORDERED: ONDANSETRON INJ 2 MG/ML 2 ML VIAL IV PRN (04:19)
[2022-06-11] MEDS ORDERED: SODIUM CHLORIDE 0.9% 1000ML 1,000 ML IV SCH (04:19)
[2022-06-11] MEDS ORDERED: ACETAMINOPHEN 325 MG TAB PO PRN (04:19)
[2022-06-11] MEDS ORDERED: methylPREDNISolone 40 MG in SYRINGE 0 ML IV SCH (06:00)
--- NOTE | 2022-06-11 06:12 | CT Scan Report ---
CT SCAN OF THE BRAIN WITHOUT IV CONTRAST CLINICAL HISTORY: Change in mental status. COMPARISON STUDY: CT of the brain dated 02/22/2022. TECHNIQUE: Unenhanced axial CT scan of the brain is performed from the vertex to the skull base. A do se lowering technique was utilized adhering to the principles of ALARA. The patient was scanned twice due to motion artifact. CT DOSE: 3199.93 mGy.cm FINDINGS: Brain parenchyma: There is age-related involutional change noting mild subcortical and periventricula r microangiopathic disease. There is no hemorrhage, mass effect, or evidence of acute territorial isc hemia by CT criteria. Rain-white matter differentiation is preserved. No extra-axial fluid collection is seen. Ventricles, sulci, cisterns: Prominent secondary to involutional change. Intracranial vasculature: There is atherosclerotic calcification of the cavernous carotid arteries. Calvarium: Unremarkable. Sinuses and mastoids: The visualized paranasal sinuses are clear. The mastoid air cells are well pneu matized. Orbits: The bony orbits are grossly intact. IMPRESSION: There is no hemorrhage, mass effect, or evidence of acute territorial ischemia by CT bennie barney. ACT 112: Negative or not required by law. Electronically signed by: Kody Leonardo M.D. 06/11/2022 6:11 AM
[2022-06-11] MEDS ORDERED: ALBUT/IPRATROP 3MG/0.5MG NEB 3 ML VIAL NEB SCH (07:00)
[2022-06-11 07:07] LABS: Appearance Urine Clear (Clear); Bacteria Urine Automated Negative (Negative); Bilirubin Urine Negative (Negative); Blood Urine Negative (Negative); Color Urine Yellow; Glucose Urine UA Negative (Negative); Ketones Urine Negative (Negative); Leukocyte Esterase Urine Negative (Negative); Nitrite Urine Negative (Negative); Protein Urine Trace (Negative); RBC Urine Automated 0-4 /hpf (0-4); Specific Gravity Urine 1.023 (1.000-1.030); Urobilinogen Urine Negative (Negative)
[2022-06-11 07:27] LABS: Calcium Oxalate Crystals Urine Present (None Prsent)
--- NOTE | 2022-06-11 07:48 | CT Scan Report ---
CT SCAN OF THE CHEST, ABDOMEN, AND PELVIS WITHOUT IV CONTRAST CLINICAL HISTORY: Change in mental status. Dyspnea. Lower abdominal pain. COMPARISON STUDY: Chest x-ray dated 06/10/2022. Chest CT dated 03/12/2020. Abdominal CT dated 06/11/19 23. TECHNIQUE: Unenhanced CT scan of the chest, abdomen, and pelvis was performed from the thoracic inlet to the proximal femora. Images are reviewed in the axial, sagittal, and coronal planes. IV contrast was not administered as per the referring clinician. Note that the examinations were performed and si gnificant with suboptimal fashion without oral and IV contrast. There is also motion artifact, as we ll as streak artifact from the arms which could not be elevated above the chest or abdomen. A dose lo wering technique was utilized adhering to the principles of ALARA. FINDINGS: CHEST: Thyroid: Imaged portions of the thyroid gland are normal in size and attenuation. Thoracic aorta: The thoracic aorta is normal in caliber and demonstrates standard 3-vessel arch anato my. Heart: The heart is top normal in size and without pericardial effusion. The coronary arteries are de nsely calcified. Lungs and pleural spaces: There is no airspace consolidation or pleural effusion. Chronic elevation o f the right hemidiaphragm is similar to previous with foci of scarring/atelectasis. The trachea and c entral airways are clear. Scattered (at least 5) subcentimeter pulmonary and pleural-based nodules ar e similar to prior studies. A billing customer service representative 5 mm pleural-based nodule at the right lung base is seen on image were 217 and a billing customer service representative 5 mm nodule in the lingula is seen on image #134. Mediastinum: Scattered mediastinal lymph nodes measure up to 10 mm in short axis. These are similar t o previous. Liza: Not well assessed without IV contrast. Axillae: There is no axillary lymphadenopathy. Bony thorax: The skeletal structures are osteopenic. Degenerative change is noted in the shoulders an d thoracic spine. There are mild chronic thoracic compression deformities. A hemangioma is noted in t he manubrium. No lytic or blastic lesions are identified. There are chronic/old right-sided rib fract ures. ABDOMEN AND PELVIS: Liver: The unenhanced liver is normal in size, contour, and attenuation. There is no intrahepatic hu iary ductal dilatation. Gallbladder: Gallstones are noted. There is no CT evidence of acute cholecystitis. Spleen: Normal in size and attenuation. Pancreas: The unenhanced pancreas is grossly unremarkable. Adrenal glands: Unremarkable. Kidneys: The unenhanced kidneys are normal in size and without hydronephrosis. No renal calculi are i dentified. There is no evidence of contour deforming mass lesion. Abdominal vasculature: The abdominal aorta is normal in course and caliber noting moderate atheroscle rotic calcification. Bowel: There is moderate constipation. No bowel obstruction is seen. There are scattered colonic dive rticula without CT evidence of acute diverticulitis. The appendix is dilated, measuring to 10 mm as seen on image #295. There is no gas within the lumen and the wall appears mildly thickened. There is no significant periappendiceal infiltration. Appendiceal caliber represents is unchanged from 3. Peritoneum: There is no intraperitoneal free air or abdominal ascites. There is a small fat-containin g umbilical hernia. Lymphadenopathy: A prominent left pelvic sidewall node seen on image #434 measures 9 mm in short axis . This is unchanged from prior studies. Pelvic viscera: The prostate gland is mildly enlarged and heterogeneous. The bladder is normal as vis ualized Skeletal structures: The skeletal structures are osteopenic. There is moderate to advanced in the sac ral spondylosis. No lytic or blastic lesions are seen. IMPRESSION: 1. Suboptimal examinations without oral and IV contrast. The examinations are also degraded by streak and motion artifact. 2. There is no airspace consolidation or pleural effusion. 3. Stable appearance of the appendix as compared 05/31/2022. This is dilated and fluid-filled, measurin g up to 10 mm. There is no significant surrounding inflammation. Early/mild appendicitis is not exclu ded and clinical correlation will be essential. 4. Moderate constipation. 5. Cholelithiasis. 6. Additional findings as above. ACT 112: Negative or not required by law. Electronically signed by: Kody Leonardo M.D. 06/11/2022 7:45 AM
[2022-06-11] MEDS: AZITHROMYCIN 500 MG in DEXTROSE 5% 250 ML IV SCH (08:50)
[2022-06-11] MEDS: CHECK fentaNYL PATCH PLACEMENT SCH ×2 (08:50→16:05)
[2022-06-11] MEDS ORDERED: FERROUS SULFATE 325 MG TAB PO SCH (09:00)
--- NOTE | 2022-06-11 11:08 | Pulmonary Consultation ---
Date of Consultation June 11, 2022 Assessment & Plan (1) Acute hypercapnic respiratory failure: (2) Acute on chronic respiratory failure with hypoxemia: (3) Severe obstructive sleep apnea: (4) Restrictive lung disease: (5) Diaphragmatic disorder: Plan Impression: 71-year-old male with severe sleep disordered breathing, restrictive lung disease due to elevated hemidiaphragm with hypercarbic/hypoxemic respiratory failure. This appears resolved with application of noninvasive positive pressure ventilation. Suspect the patient's hypoxemia was likely perpetuated and exacerbated by his concomitant hypercarbia. Recommendations: 1. Hypercarbic respiratory failure/sleep disordered breathing: Continue nocturnal positive airway pressure. Patient was advised of the importance of adherence to CPAP and BiPAP. 2. Etiology of the patient's hypoxemic respiratory failure is his hypercarbia. If this can be effectively treated, he may not need supplemental oxygen. Recommend ambulating the patient today to see whether or not he requires supplemental oxygen with physical activity 3. Exercise and weight loss were recommended. 4. Elevated hemidiaphragm: Patient inquires about surgical intervention for his diaphragm. Advised him that he would need to go to the [facility] in [place] and the referral can be made by his primary care provider through the [facility]. There is no one here locally that could evaluate him. 5. Defer to his primary admitting service evaluation of his abdominal CT findings. No indications from a pulmonary perspective to use steroids or antibiotics. We will discontinue Solu-Medrol We will be happy to see the patient back in pulmonary clinic for follow-up once he is dismissed from the hospital. From a pulmonary perspective, he appears to be back to his baseline. History of Present Illness Attending Physician: Da Blount MD History of Present Illness Asked by hospitalist to assist in evaluation management as patient with hypercarbic and hypoxemic respiratory failure. Patient is known to me from the outpatient setting. History is obtained from review electronic medical record as well as interview the patient bedside. The patient is a 71-year-old male who I follow in the pulmonary clinic for hypoxemic/hypercarbic respiratory failure and sleep disordered breathing. He has known elevated hemidiaphragm. He is on CPAP at night. Patient was last seen by me in the pulmonary clinic in March. He was doing reasonably well at that point in time. Patient was brought into the emergency room yesterday evening with complaints of not feeling right and low oxygen levels. He reports that he is compliant with his CPAP unit at night however he does note that occasionally he wakes up with the device inadvertently removed during the night. Is not had any changes to his narcotic medications in the recent past. He was found to be hypoxemic and was placed on supplemental oxygen. Blood gas demonst rated hypercarbia and he was placed on BiPAP. Patient did have imaging which showed a dilated appendix. He was seen by surgery. They recommended antibiotics keeping the patient n.p.o. The patient this morning states that he feels fine. He is back to normal. He denies any respiratory issues. Is not having any cough or sputum production. No chest pain or palpitations. No wheezing. He actually feels pretty good. He inquires about possible surgical intervention for his diaphragm. Allergies Allergy/AdvReac Type Severity Reaction Status Date / Time bee venom protein (honey bee) Allergy Intermediate EXCESSIVE Verified 06/11/22 00:38 SWELLING AT SITE sulfamethoxazole Allergy Intermediate TONGUE Verified 06/11/22 00:38 SWELLS, WHITE BLISTERS IN MOUTH. trimethoprim Allergy Intermediate TONGUE Verified 06/11/22 00:38 SWELLS, WHITE BLISTERS IN MOUTH. adhesive Allergy Mild SKIN Verified 06/11/22 00:38 IRRITATION morphine AdvReac Intermediate PROJECTILE Verified 06/11/22 00:38 VOMITING Home Medications Medication Instructions Recorded Confirmed Type cyclobenzaprine 10 mg tablet 10 mg PO HS 02/28/19 06/11/22 History omeprazole 20 mg capsule,delayed 20 mg PO HS 02/28/19 06/11/22 History release pramipexole 0.5 mg tablet 0.5 mg PO HS 02/28/19 06/11/22 History loratadine 10 mg tablet (Claritin) 10 mg PO DAILY PRN Congestion 03/13/19 06/11/22 History ondansetron 4 mg disintegrating 4 mg PO Q8H PRN Nausea And Vomiting 04/10/19 06/11/22 History tablet cholecalciferol (vitamin D3) 25 2,000 units PO HS 06/10/19 06/11/22 History mcg (1,000 unit) capsule lisinopril 5 mg tablet 5 mg PO HS 08/02/19 06/11/22 History alfuzosin 10 mg tablet,extended 10 mg PO HS 02/12/20 06/11/22 History release 24 hr dicyclomine 10 mg capsule 10 mg PO BID PRN ABD PAIN 02/12/20 06/11/22 History famotidine 20 mg tablet 20 mg PO HS 03/08/20 06/11/22 History pravastatin 40 mg tablet 20 mg PO HS 11/04/21 06/11/22 History ascorbic acid (vitamin C) 500 mg 250 mg PO HS 01/11/22 06/11/22 History tablet ferrous sulfate 325 mg (65 mg 325 mg PO Q OTHER DAY 01/11/22 06/11/22 History iron) tablet folic acid 1 mg tablet 1 mg PO HS 01/11/22 06/11/22 History aspirin 81 mg tablet,delayed 81 mg PO HS 02/22/22 06/11/22 History release (Alice Low Dose Aspirin) fentanyl 100 mcg/hr transdermal 100 mcg transdermal Q48H 02/22/22 06/11/22 His tory patch naloxegol 25 mg tablet 25 mg PO QAM 03/23/22 06/11/22 History gabapentin 300 mg capsule 300 mg PO TID #90 caps 05/25/22 06/11/22 Rx cyanocobalamin (vitamin B-12) 2,500 mcg PO HS 05/31/22 06/11/22 History 2,500 mcg tablet ciprofloxacin HCl 500 mg tablet 500 mg PO BID #15 tabs 06/03/22 06/11/22 Rx (Cipro) metoprolol tartrate 25 mg tablet 25 mg PO BID #60 tabs 06/03/22 06/11/22 Rx metronidazole 500 mg tablet 500 mg PO TID #22 tabs 06/03/22 06/11/22 Rx testosterone (AndroGel) 2 pump topical HS #75 grams 06/08/22 06/11/22 Rx Patient History Medical History (Updated 06/11/22 @ 11:03 by Mo King MD) Acute on chronic respiratory failure with hypoxemia Atypical chest pain BPH (benign prostatic hyperplasia) Chronic back pain Chronic respiratory failure Depression GERD (gastroesophageal reflux disease) History of acute renal failure Hypertension Hypogonadotropic hypogonadism in male Hypoxia Leukocytosis Metabolic encephalopathy Non-ST elevation DC (NSTEMI) Prostatitis Recurrent pneumonia RLS (restless legs syndrome) Surgical History History of ankle surgery Britton reconstruction-right side History of carpal tunnel release History of mandibular surgery History of surgery mass removed from left side of clavicle Status post trigger finger release Family History Mother Cancer Hypertension Myasthenia gravis Son Environmental allergies Asthma Sister Gallbladder disease Father Alzheimer disease Other No family history of bleeding disorder Social History Smoking Status: Never smoker Tobacco Type: Cigarettes Second Hand Exposure: No; Hx Alcohol Use: No Hx Substance Use: No Preferred Language: French Communication Ability: Effective Manager Product Design Required: No Beliefs That Will Affect Care: None marital status: Current Living Situation: Spouse current occupational status: retired Other Information That Helps Us Care for You: No Feels Safe at Home: Yes Safety Concerns: Feels Safe At This Time Assistive Devices: Cane, CPAP, Denture - Upper and Denture - Lower Review of Systems Review of Systems: Please refer to admission H&P. No additions or deletions Physical Exam Constitutional: well developed Neck: trachea midline, no thyromegaly Respiratory: normal respiratory effort, lungs clear to auscultation Cardiovascular: RRR, no murmur, no edema Gastrointestinal (Abdomen): normal bowel sounds, soft, nontender, no hepatosplenomegaly Musculoskeletal: Extremities: extremities normal to inspection Skin: no rashes, warm and dry Neurologic: Nonfocal exam Lymphatic: no cervical lymphadenopathy Results & Data Results & Data ([facility]) Vital Signs (Past 12 Hours) Vital Signs Temp Pulse Pulse Resp BP BP Pulse Ox 06/11/22 09:12 91 06/11/22 07:06 36.4 C L 90 20 129/65 98 06/11/22 07:40 78 17 97 06/11/22 07:38 78 16 97 06/11/22 07:38 100 H 06/11/22 04:12 89 06/11/22 04:00 06/11/22 04:00 36.5 C 110 H 20 150/68 H 97 06/11/22 03:30 100 H 21 98 06/11/22 03:20 98 H 14 90 06/11/22 03:10 99 H 14 90 06/11/22 03:00 101 H 14 92 06/11/22 03:00 110/90 06/11/22 02:50 100 H 17 93 06/11/22 02:40 99 H 16 93 06/11/22 02:30 101 H 17 93 06/11/22 02:30 99/74 L 06/11/22 02:20 105 H 22 94 06/11/22 02:10 105 H 17 97 06/11/22 02:00 109 H 19 97 06/11/22 02:00 124/69 06/11/22 01:50 30 H 87 L 06/11/22 01:40 13 91 06/11/22 01:30 20 94 06/11/22 01:20 12 91 06/11/22 01:10 15 95 06/11/22 01:01 90/66 L 06/11/22 01:01 24 77 L 06/11/22 01:00 17 99 06/11/22 00:50 106 H 17 98 06/11/22 03:17 99 H 15 91 06/11/22 02:37 98 H 99/74 L 96 06/11/22 02:29 102 H 06/11/22 01:34 98 06/11/22 01:30 102 H 21 118/60 97 06/11/22 00:40 105 H 15 94 06/11/22 00:30 108 H 18 92 06/11/22 00:30 101/73 06/11/22 00:20 112 H 17 93 06/11/22 00:13 95 06/10/22 23:50 111 H 21 75 L 06/10/22 23:46 156/81 H 06/10/22 23:46 114 H 22 91 06/10/22 23:40 113 H 19 94 06/10/22 23:31 156/105 H 06/10/22 23:31 115 H 27 H 92 06/10/22 23:30 115 H 20 92 06/10/22 23:20 119 H 18 90 06/10/22 23:15 110 H 19 99 06/10/22 23:15 106/87 06/10/22 23:13 111 H 18 94 06/10/22 23:13 146/86 H 06/10/22 23:10 112 H 22 92 06/10/22 23:00 113 H 16 95 06/11/22 00:44 105 H 101/73 93 06/10/22 23:14 112 H 20 146/86 H 97 O2 Del Method O2 Flow Rate FiO2 02/19/23 09:12 Room Air 06/11/22 07:06 BiPAP 06/11/22 07:40 40 06/11/22 07:38 BiPAP 40 06/11/22 07:38 06/11/22 04:12 06/11/22 04:00 BiPAP 06/11/22 04:00 BiPAP 06/11/22 03:30 06/11/22 03:20 06/11/22 03:10 06/11/22 03:00 06/11/22 03:00 06/11/22 02:50 06/11/22 02:40 06/11/22 02:30 06/11/22 02:30 06/11/22 02:20 06/11/22 02:10 06/11/22 02:00 06/11/22 02:00 06/11/22 01:50 06/11/22 01:40 06/11/22 01:30 06/11/22 01:20 06/11/22 01:10 06/11/22 01:01 06/11/22 01:01 06/11/22 01:00 06/11/22 00:50 06/11/22 03:17 40 06/11/22 02:37 BiPAP 06/11/22 02:29 06/11/22 01:34 BiPAP 06/11/22 01:30 BiPAP 06/11/22 00:40 06/11/22 00:30 06/11/22 00:30 06/11/22 00:20 06/11/22 00:13 06/10/22 23:50 06/10/22 23:46 06/10/22 23:46 06/10/22 23:40 06/10/22 23:31 06/10/22 23:31 06/10/22 23:30 06/10/22 23:20 06/10/22 23:15 06/10/22 23:15 06/10/22 23:13 06/10/22 23:13 06/10/22 23:10 06/10/22 23:00 06/11/22 00:44 BiPAP 06/10/22 23:14 Nasal Cannula 3 Critical Care Results & Data Vital Signs (Past 12 Hours) Vital Signs Temp Pulse Pulse Resp BP BP Pulse Ox 06/11/22 09:12 91 06/11/22 07:06 36.4 C L 90 20 129/65 98 06/11/22 07:40 78 17 97 06/11/22 07:38 78 16 97 06/11/22 07:38 100 H 06/11/22 04:12 89 06/11/22 04:00 06/11/22 04:00 36.5 C 110 H 20 150/68 H 97 06/11/22 03:30 100 H 21 98 06/11/22 03:20 98 H 14 90 06/11/22 03:10 99 H 14 90 06/11/22 03:00 101 H 14 92 06/11/22 03:00 110/90 06/11/22 02:50 100 H 17 93 06/11/22 02:40 99 H 16 93 06/11/22 02:30 101 H 17 93 06/11/22 02:30 99/74 L 06/11/22 02:20 105 H 22 94 06/11/22 02:10 105 H 17 97 06/11/22 02:00 109 H 19 97 06/11/22 02:00 124/69 06/11/22 01:50 30 H 87 L 06/11/22 01:40 13 91 06/11/22 01:30 20 94 06/11/22 01:20 12 91 06/11/22 01:10 15 95 06/11/22 01:01 90/66 L 06/11/22 01:01 24 77 L 06/11/22 01:00 17 99 06/11/22 00:50 106 H 17 98 06/11/22 03:17 99 H 15 91 06/11/22 02:37 98 H 99/74 L 96 06/11/22 02:29 102 H 06/11/22 01:34 98 06/11/22 01:30 102 H 21 118/60 97 06/11/22 00:40 105 H 15 94 06/11/22 00:30 108 H 18 92 06/11/22 00:30 101/73 06/11/22 00:20 112 H 17 93 06/11/22 00:13 95 06/10/22 23:50 111 H 21 75 L 06/10/22 23:46 156/81 H 06/10/22 23:46 114 H 22 91 06/10/22 23:40 113 H 19 94 06/10/22 23:31 156/105 H 06/10/22 23:31 115 H 27 H 92 06/10/22 23:30 115 H 20 92 06/10/22 23:20 119 H 18 90 06/10/22 23:15 110 H 19 99 06/10/22 23:15 106/87 06/10/22 23:13 111 H 18 94 06/10/22 23:13 146/86 H 06/10/22 23:10 112 H 22 92 06/11/22 00:44 105 H 101/73 93 06/10/22 23:14 112 H 20 146/86 H 97 O2 Del Method O2 Flow Rate FiO2 06/11/22 09:12 Room Air 06/11/22 07:06 BiPAP 06/11/22 07:40 40 06/11/22 07:38 BiPAP 40 06/11/22 07:38 06/11/22 04:12 06/11/22 04:00 BiPAP 06/11/22 04:00 BiPAP 06/11/22 03:30 06/11/22 03:20 06/11/22 03:10 06/11/22 03:00 06/11/22 03:00 06/11/22 02:50 06/11/22 02:40 06/11/22 02:30 06/11/22 02:30 06/11/22 02:20 06/11/22 02:10 06/11/22 02:00 06/11/22 02:00 06/11/22 01:50 06/11/22 01:40 06/11/22 01:30 06/11/22 01:20 06/11/22 01:10 06/11/22 01:01 06/11/22 01:01 06/11/22 01:00 06/11/22 00:50 06/11/22 03:17 40 06/11/22 02:37 BiPAP 06/11/22 02:29 06/11/22 01:34 BiPAP 06/11/22 01:30 BiPAP 06/11/22 00:40 06/11/22 00:30 06/11/22 00:30 06/11/22 00:20 06/11/22 00:13 06/10/22 23:50 06/10/22 23:46 06/10/22 23:46 06/10/22 23:40 06/10/22 23:31 06/10/22 23:31 06/10/22 23:30 06/10/22 23:20 06/10/22 23:15 06/10/22 23:15 06/10/22 23:13 06/10/22 23:13 06/10/22 23:10 06/11/22 00:44 BiPAP 06/10/22 23:14 Nasal Cannula 3 Lab & Micro Results (Past 24 Hours) RBC 4.59 M/uL (4.70-6.10) L 06/10/22 WBC 14.34 K/ul (4.8-10.8) H 06/10/22 Hgb 15.0 g/dl (14.0-18.0) 06/10/22 Hct 45.6 % (42.0-52.0) 06/10/22 MCV 99.3 fL (80.0-100.0) 06/10/22 MCH 32.7 pg (25.0-34.0) 06/10/22 MCHC 32.9 g/dL (32.0-36.0) 06/10/22 RDW Standard Deviation 58.6 fL (36.4-46.3) H 06/10/22 RDW Coefficient of Variation 15.9 % (11.5-14.5) H 06/10/22 Plt Count 269 K/uL (130-400) 06/10/22 MPV 9.7 fL (9.4-12.4) 06/10/22 Neutrophils (%) (Auto) 81.5 % 06/10/22 Lymphocytes (%) (Auto) 8.4 % 06/10/22 Monocytes # (Auto) 1.17 K/uL (0.11-0.59) H 06/10/22 Eosinophils # (Auto) 0.07 K/uL (0-0.50) 06/10/22 Immature Granulocyte % (Auto) 0.8 % 06/10/22 Neutrophils # (Auto) 11.71 K/uL (1.40-6.50) H 06/10/22 Lymphocytes # (Auto) 1.20 K/uL (1.2-3.4) 06/10/22 Monocytes # (Auto) 1.17 K/uL (0.11-0.59) H 06/10/22 Eosinophils # (Auto) 0.07 K/uL (0-0.50) 06/10/22 Basophils # (Auto) 0.08 K/uL (0-0.2) 06/10/22 Immature Granulocyte # (Auto) 0.11 K/uL (0.01-0.20) 3 Na 137 mmol/L (136-145) 06/10/22 K 5.0 mmol/L (3.5-5.1) 06/10/22 Cl 102 mmol/L (98-107) 06/10/22 CO2 31 mmol/L (21-32) 06/10/22 Anion Gap 4 (3-11) 06/10/22 BUN 31 mg/dl (6-23) H 06/10/22 Creatinine 2.13 mg/dl (0.6-1.4) H 06/10/22 Estimated GFR ( Amer) 35.3 ml/min 06/10/22 Estimated GFR (Non-Af Amer) 30.4 ml/min 06/10/22 BUN/Creatinine Ratio 14.6 (10-20) 06/10/22 Glu 98 mg/dl (70-99(Fasting)) 06/10/22 Ca 9.4 mg/dl (8.5-10.1) 06/10/22 Total Bilirubin 1.1 mg/dl (0.2-1.0) H 06/10/22 Direct Bilirubin 0.3 mg/dl (0-0.2) H 06/10/22 AST 20 U/L (13-39) 06/10/22 ALT 17 U/L (7-52) 06/10/22 Alkaline Phosphatase 43 U/L (34-104) 06/10/22 TP 7.4 gm/dl (6.0-8.3) 06/10/22 Albumin 4.5 gm/dl (3.4-5.0) 06/10/22 Mg 2.0 mg/dl (1.7-2.4) 06/10/22 22:44 Calcium Level 9.4 mg/dl (8.5-10.1) 06/10/22 22:44 Venous Blood pH 7.28 (7.36-7.41) L 06/10/22 22:44 Venous Blood Partial Pressure CO2 69 mmHg (38-50) H 06/10/22 22 :44 Venous Blood Partial Pressure O2 32 mmHg 06/10/22 22:44 Venous Blood HCO3 32 mmol/L 06/10/22 22:44 Venous Blood Base Excess 3.5 mEq/L 06/10/22 22:44 Venous Blood Oxygen Saturation < 60.0 % 06/10/22 22:44 Diagnostic Findings (Past 24 Hours) Chest X-Ray 06/10/22 22:31 XR chest 1V portable HISTORY: 71 years-old Male Sepsis acute sepsis COMPARISON: Chest radiograph 05/31/2022 TECHNIQUE: AP view the chest FINDINGS: Cardiac mediastinal and hilar silhouettes are unchanged. Chronic interstitial coarsening with unchanged right hemidiaphragmatic elevation. No pneumothorax, pleural effusion, airspace consolidation or overt pulmonary edema. Degenerative changes of the shoulders and spine. IMPRESSION: No acute process. ACT 112: Negative or not required by law. The above report was generated using voice recognition software. It may contain grammatical, syntax or spelling errors. Electronically signed by: Marco Stweart M.D. 06/11/2022 12:[address] 06/10/22 22:31 CT SCAN OF THE BRAIN WITHOUT IV CONTRAST CLINICAL HISTORY: Change in mental status. COMPARISON STUDY: CT of the brain dated 02/22/2022. TECHNIQUE: Unenhanced axial CT scan of the brain is performed from the vertex to the skull base. A dose lowering technique was utilized adhering to the principles of ALARA. The patient was scanned twice due to motion artifact. CT DOSE: 3199.93 mGy.cm FINDINGS: Brain parenchyma: There is age-related involutional change noting mild subcortical and periventricular microangiopathic disease. There is no hemorrhage, mass effect, or evidence of acute territorial ischemia by CT criteria. Rain-white matter differentiation is preserved. No extra-axial fluid collection is seen. Ventricles, sulci, cisterns: Prominent secondary to involutional change. Intracranial vasculature: There is atherosclerotic calcification of the cavernous carotid arteries. Calvarium: Unremarkable. Sinuses and mastoids: The visualized paranasal sinuses are clear. The mastoid air cells are well pneumatized. Orbits: The bony orbits are grossly intact. IMPRESSION: There is no hemorrhage, mass effect, or evidence of acute territorial ischemia by CT criteria. ACT 112: Negative or not required by law. Electronically signed by: Kody Leonardo M.D. 06/11/2022 6:11 AM Abdomen/Pelvis CT 06/10/22 23:20 CT SCAN OF THE CHEST, ABDOMEN, AND PELVIS WITHOUT IV CONTRAST CLINICAL HISTORY: Change in mental status. Dyspnea. Lower abdominal pain. COMPARISON STUDY: Chest x-ray dated 06/10/2022. Chest CT dated 03/12/2020. Abdominal CT dated 06/11/2022. TECHNIQUE: Unenhanced CT scan of the chest, abdomen, and pelvis was performed from the thoracic inlet to the proximal femora. Images are reviewed in the axial, sagittal, and coronal planes. IV contrast was not administered as per the referring clinician. Note that the examinations were performed and significant with suboptimal fashion without oral and IV contrast. There is also motion artifact, as well as streak artifact from the arms which could not be elevated above the chest or abdomen. A dose lowering technique was utilized adhering to the principles of ALARA. FINDINGS: CHEST: Thyroid: Imaged portions of the thyroid gland are normal in size and attenuation. Thoracic aorta: The thoracic aorta is normal in caliber and demonstrates standard 3-vessel arch anatomy. Heart: The heart is top normal in size and without pericardial effusion. The coronary arteries are densely calcified. Lungs and pleural spaces: There is no airspace consolidation or pleural effusion. Chronic elevation of the right hemidiaphragm is similar to previous with foci of scarring/atelectasis. The trachea and central airways are clear. Scattered (at least 5) subcentimeter pulmonary and pleural-based nodules are similar to prior studies. A maintenance representative 5 mm pleural-based nodule at the right lung base is seen on image were 217 and a maintenance representative 5 mm nodule in the lingula is seen on image #134. Mediastinum: Scattered mediastinal lymph nodes measure up to 10 mm in short axis. These are similar to previous. Liza: Not well assessed without IV contrast. Axillae: There is no axillary lymphadenopathy. Bony thorax: The skeletal structures are osteopenic. Degenerative change is noted in the shoulders and thoracic spine. There are mild chronic thoracic compression deformities. A hemangioma is noted in the manubrium. No lytic or blastic lesions are identified. There are chronic/old right-sided rib fractures. ABDOMEN AND PELVIS: Liver: The unenhanced liver is normal in size, contour, and attenuation. There is no intrahepatic biliary ductal dilatation. Gallbladder: Gallstones are noted. There is no CT evidence of acute cholecystitis. Spleen: Normal in size and attenuation. Pancreas: The unenhanced pancreas is grossly unremarkable. Adrenal glands: Unremarkable. Kidneys: The unenhanced kidneys are normal in size and without hydronephrosis. No renal calculi are identified. There is no evidence of contour deforming mass lesion. Abdominal vasculature: The abdominal aorta is normal in course and caliber noting moderate atherosclerotic calcification. Bowel: There is moderate constipation. No bowel obstruction is seen. There are scattered colonic diverticula without CT evidence of acute diverticulitis. The appendix is dilated, measuring to 10 mm as seen on image #295. There is no gas within the lumen and the wall appears mildly thickened. There is no significant periappendiceal infiltration. Appendiceal caliber represents is unchanged from 05/31/2022. Peritoneum: There is no intraperitoneal free air or abdominal ascites. There is a small fat-containing umbilical hernia. Lymphadenopathy: A prominent left pelvic sidewall node seen on image #434 measures 9 mm in short axis. This is unchanged from prior studies. Pelvic viscera: The prostate gland is mildly enlarged and heterogeneous. The bladder is normal as visualized Skeletal structures: The skeletal structures are osteopenic. There is moderate to advanced in the sacral spondylosis. No lytic or blastic lesions are seen. IMPRESSION: 1. Suboptimal examinations without oral and IV contrast. The examinations are also degraded by streak and motion artifact. 2. There is no airspace consolidation or pleural effusion. 3. Stable appearance of the appendix as compared 05/31/2022. This is dilated and fluid-filled, measuring up to 10 mm. There is no significant surrounding inflammation. Early/mild appendicitis is not excluded and clinical correlation will be essential. 4. Moderate constipation. 5. Cholelithiasis. 6. Additional findings as above. ACT 112: Negative or not required by law. Electronically signed by: Kody Leonardo M.D. 06/11/2022 7:[address] 06/10/22 23:20 CT SCAN OF THE CHEST, ABDOMEN, AND PELVIS WITHOUT IV CONTRAST CLINICAL HISTORY: Change in mental status. Dyspnea. Lower abdominal pain. COMPARISON STUDY: Chest x-ray dated 06/10/2022. Chest CT dated 03/12/2020. Abdominal CT dated 06/11/2022. TECHNIQUE: Unenhanced CT scan of the chest, abdomen, and pelvis was performed from the thoracic inlet to the proximal femora. Images are reviewed in the axial, sagittal, and coronal planes. IV contrast was not administered as per the referring clinician. Note that the examinations were performed and significant with suboptimal fashion without oral and IV contrast. There is also motion artifact, as well as streak artifact from the arms which could not be elevated above the chest or abdomen. A dose lowering technique was utilized adhering to the principles of ALARA. FINDINGS: CHEST: Thyroid: Imaged portions of the thyroid gland are normal in size and attenuation. Thoracic aorta: The thoracic aorta is normal in caliber and demonstrates standard 3-vessel arch anatomy. Heart: The heart is top normal in size and without pericardial effusion. The coronary arteries are densely calcified. Lungs and pleural spaces: There is no airspace consolidation or pleural effusion. Chronic elevation of the right hemidiaphragm is similar to previous with foci of scarring/atelectasis. The trachea and central airways are clear. Scattered (at least 5) subcentimeter pulmonary and pleural-based nodules are similar to prior studies. A maintenance representative 5 mm pleural-based nodule at the right lung base is seen on image were 217 and a maintenance representative 5 mm nodule in the lingula is seen on image #134. Mediastinum: Scattered mediastinal lymph nodes measure up to 10 mm in short axis. These are similar to previous. Liza: Not well assessed without IV contrast. Axillae: There is no axillary lymphadenopathy. Bony thorax: The skeletal structures are osteopenic. Degenerative change is noted in the shoulders and thoracic spine. There are mild chronic thoracic compression deformities. A hemangioma is noted in the manubrium. No lytic or reese stic lesions are identified. There are chronic/old right-sided rib fractures. ABDOMEN AND PELVIS: Liver: The unenhanced liver is normal in size, contour, and attenuation. There is no intrahepatic biliary ductal dilatation. Gallbladder: Gallstones are noted. There is no CT evidence of acute cholecystitis. Spleen: Normal in size and attenuation. Pancreas: The unenhanced pancreas is grossly unremarkable. Adrenal glands: Unremarkable. Kidneys: The unenhanced kidneys are normal in size and without hydronephrosis. No renal calculi are identified. There is no evidence of contour deforming mass lesion. Abdominal vasculature: The abdominal aorta is normal in course and caliber noting moderate atherosclerotic calcification. Bowel: There is moderate constipation. No bowel obstruction is seen. There are scattered colonic diverticula without CT evidence of acute diverticulitis. The appendix is dilated, measuring to 10 mm as seen on image #295. There is no gas within the lumen and the wall appears mildly thickened. There is no significant periappendiceal infiltration. Appendiceal caliber represents is unchanged from 05/31/2022. Peritoneum: There is no intraperitoneal free air or abdominal ascites. There is a small fat-containing umbilical hernia. Lymphadenopathy: A prominent left pelvic sidewall node seen on image #434 measures 9 mm in short axis. This is unchanged from prior studies. Pelvic viscera: The prostate gland is mildly enlarged and heterogeneous. The bladder is normal as visualized Skeletal structures: The skeletal structures are osteopenic. There is moderate to advanced in the sacral spondylosis. No lytic or blastic lesions are seen. IMPRESSION: 1. Suboptimal examinations without oral and IV contrast. The examinations are also degraded by streak and motion artifact. 2. There is no airspace consolidation or pleural effusion. 3. Stable appearance of the appendix as compared 05/31/2022. This is dilated and fluid-filled, measuring up to 10 mm. There is no significant surrounding inflammation. Early/mild appendicitis is not excluded and clinical correlation will be essential. 4. Moderate constipation. 5. Cholelithiasis. 6. Additional findings as above. ACT 112: Negative or not required by law. Electronically signed by: Kody Leonardo M.D. 06/11/2022 7:45 AM I & O Totals 24 Hours 06/10/22 06/11/22 06/12/22 06:59 06:59 06:59 Intake Total 860 / 860 Balance 860 / 860 Cumulative 06/10/22 22:12 thru 06/11/22 05:55 Intake Total 860 Balance 860 RT Ventilator Mngmt (Last Documented) Ventilator Ordered Settings Respiratory Rate 17 06/11/22 07:40 Fraction of Inspired Oxygen 40 06/11/22 07 :40 Ventilator - PT Measurements Respiratory Rate 17 PG Care Time/CCT Total # of Minutes Spent Total Time Spent with Patient: Total time spent is greater than 50% in coordination of care (as documented) at patient's floor/unit and/or counseling patient: Coding Level of Care Code 17497 INT INP/OBS CARE MIN Diagnoses Acute hypercapnic respiratory failure J96.02 Acute on chronic respiratory failure with hypoxemia J96.21 Severe obstructive sleep apnea G47.33 Restrictive lung disease J98.4 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
[2022-06-11] MEDS: ALBUT/IPRATROP 3MG/0.5MG NEB 3 ML VIAL NEB PRN ×2 (11:10→15:10)
[2022-06-11] MEDS: METOPROLOL TARTRATE 25 MG TAB PO SCH ×2 (11:27→20:02)
[2022-06-11] MEDS: GABAPENTIN 300 MG CAP PO SCH ×3 (11:27→20:03)
--- NOTE | 2022-06-11 11:33 | Electrocardiogram Report ---
Test Reason : Blood Pressure : / mmHG Vent. Rate : 110 BPM Atrial Rate : 110 BPM P-R Int : 198 ms QRS Dur : 084 ms QT Int : 308 ms P-R-T Axes : 049 -02 027 degrees QTc Int : 416 ms Poor data quality, interpretation may be adversely affected Sinus tachycardia Otherwise normal ECG When compared with ECG of 31-MAY-2022 17:10, No significant change was found Confirmed by Greg Urrutia ([id number]) on 06/11/2022 11:32:55 AM Referred By: Francis Rubin Confirmed By:Greg Urrutia
[2022-06-11] MEDS: ENOXAPARIN INJ 40 MG/0.4 ML SYR SQ SCH (12:23)
[2022-06-11] MEDS ORDERED: PANTOprazole 40 MG TAB PO SCH (21:00)
[2022-06-11] MEDS ORDERED: ASCORBIC ACID 500 MG TAB PO SCH (21:00)
[2022-06-11] MEDS ORDERED: ALFUZOSIN HCL 10 MG TAB PO SCH (21:00)
[2022-06-11] MEDS ORDERED: PRAMIPEXOLE DIHYDROCHLO 0.5 MG TAB PO SCH (21:00)
[2022-06-11] MEDS ORDERED: PRAVASTATIN SOD 20 MG TAB PO SCH (21:00)
[2022-06-11] MEDS ORDERED: CHOLECALCIFEROL 1,000 UNITS 25 MCG TAB PO SCH (21:00)
[2022-06-11] MEDS ORDERED: lisinopril 5 MG TAB PO SCH (21:00)
[2022-06-11] MEDS ORDERED: FAMOTIDINE 20 MG TAB PO SCH (21:00)
[2022-06-11] MEDS ORDERED: CYANOCOBALAMIN (B-12) 2,500 MCG TABLET SL SCH (21:00)
[2022-06-11] MEDS ORDERED: FOLIC ACID 1 MG TAB PO SCH (21:00)
[2022-06-11] MEDS ORDERED: CYCLOBENZAPRINE HCL 10 MG TAB PO SCH (21:00)
[2022-06-11] MEDS ORDERED: ASPIRIN 81 MG ECTAB PO SCH (21:00)
[2022-06-12] MEDS: CHECK fentaNYL PATCH PLACEMENT SCH ×2 (00:06→08:58)
[2022-06-12 06:40] LABS: Basophils # (auto) 0.04 K/uL (0-0.2); Basophils % (auto) 0.3 %; Eosinophils # (auto) 0.08 K/uL (0-0.50); Eosinophils % (auto) 0.5 %; Hematocrit (blood only) 40.3 % (42.0-52.0); Hemoglobin 13.5 g/dl (14.0-18.0); Immature Granulocytes # (auto) 0.15 K/uL (0.01-0.20); Immature Granulocytes % (auto) 0.9 %; Lymphocytes # (auto) 1.57 K/uL (1.2-3.4); Lymphocytes % (auto) 9.9 %; Mean Corpuscular Hemoglobin 32.8 pg (25.0-34.0); Mean Corpuscular Hgb Conc 33.5 g/dL (32.0-36.0); Mean Corpuscular Volume 97.8 fL (80.0-100.0); Mean Platelet Volume 10.2 fL (9.4-12.4); Monocytes # (auto) 1.41 K/uL (0.11-0.59); Monocytes % (auto) 8.9 %; Neutrophils # (auto) 12.68 K/uL (1.40-6.50); Neutrophils % (auto) 79.5 %; Platelet Count 245 K/uL (130-400); RDW Coefficient of Variation 15.9 % (11.5-14.5); RDW Standard Deviation 56.9 fL (36.4-46.3); Red Blood Count 4.12 M/uL (4.70-6.10); White Blood Count 15.93 K/ul (4.8-10.8)
[2022-06-12 06:48] LABS: Albumin Globulin Ratio 1.5 (0.9-2); Albumin Level 3.7 gm/dl (3.4-5.0); BUN Creatinine Ratio 24.6 (10-20); Calcium 8.6 mg/dl (8.5-10.1); Creatinine Clr Calc Pharmacy 67.5 ml/min; Est GFR (African American) 75.1 ml/min; Est GFR (Non-African American) 64.8 ml/min; Globulin 2.5 gm/dl (2.5-4.0); Magnesium 2.1 mg/dl (1.7-2.4); Potassium 4.6 mmol/L (3.5-5.1); Total Protein 6.2 gm/dl (6.0-8.3)
[2022-06-12] MEDS: ENOXAPARIN INJ 40 MG/0.4 ML SYR SQ SCH (07:54)
[2022-06-12] MEDS: GABAPENTIN 300 MG CAP PO SCH (07:55)
[2022-06-12] MEDS: METOPROLOL TARTRATE 25 MG TAB PO SCH (07:55)
[2022-06-12] MEDS: AZITHROMYCIN 500 MG in DEXTROSE 5% 250 ML IV SCH (07:59)
[2022-06-12] MEDS ORDERED: fentaNYL 100 MCG/HR TDSY TD SCH (09:00)
--- NOTE | 2022-06-12 09:57 | Pulmonology Progress Note ---
Date of Service June 12, 2022 Assessment & Plan (1) Acute hypercapnic respiratory failure: (2) Acute on chronic respiratory failure with hypoxemia: (3) Severe obstructive sleep apnea: (4) Restrictive lung disease: (5) Diaphragmatic disorder: Plan Impression: 71-year-old male with severe sleep disordered breathing, restrictive lung disease due to elevated hemidiaphragm with hypercarbic/hypoxemic respiratory failure. This appears resolved with application of noninvasive positive pressure ventilation. Suspect the patient's hypoxemia was likely perpetuated and exacerbated by his concomitant hypercarbia. Recommendations: 1. Hypercarbic respiratory failure/sleep disordered breathing: Appears clinically resolved. Continue nocturnal positive airway pressure. 2. Etiology of the patient's hypoxemic respiratory failure is his hypercarbia. If this can be effectively treated, he may not need supplemental oxygen. 3. Elevated hemidiaphragm: Patient continues to questions about surgical intervention. He is aware that he would likely need to be evaluated in [facility]. He reports that he is hesitant to go to [facility] as he follows with [facility] for his pain management and he is concerned that [facility] would not continue with this. He was offered to go to home however he felt most comfortable with, but explained that this would be an outpatient evaluation regardless. He does understand this. 4. Defer to his primary admitting service evaluation of his abdominal CT findings. No indications from a pulmonary perspective to use steroids or antibiotics. We will discontinue Solu-Medrol We will be happy to see the patient back in pulmonary clinic for follow-up once he is dismissed from the hospital. From a pulmonary perspective, he appears to be back to his baseline. Pulmonary medicine will sign off at this time. Admission and Anticipated Discharge Date Admission Date: June 11, 2022 Subjective Patient was seen and evaluated by myself at bedside today. He reports that his breathing is much improved. He reports that he would like to follow-up with the [facility] for possible surgical evaluation of his elevated hemidiaphragm. He is requesting that this be commented on in his note. I did explain to him that previous note outlines this as does outpatient office note as well. Otherwise, he reports he is feeling better and ready to be discharged home. Review of Systems Review of Systems: A complete 6 point review of systems was reviewed with the patient with pertinent positives and negatives as per history of present illness. All else were negative. Physical Exam Constitutional: WD/WN, vitals as above Respiratory: normal respiratory effort, lungs clear to auscultation Cardiovascular: RRR, no murmur, no edema Results & Data Results & Data ([facility]) Vital Signs (Past 12 Hours) Vital Signs Temp Pulse Resp BP Pulse Ox Pulse Ox O2 Del Method 06/12/22 07:53 36.6 C 72 18 122/72 99 Nasal Cannula 06/12/22 04:19 96 06/12/22 00:45 18 96 06/12/22 03:24 36.4 C L 91 H 16 90/49 L 96 BiPAP 06/12/22 00:45 BiPAP 06/11/22 23:07 36.7 C 90 18 120/65 92 Room Air O2 Del Method O2 Flow Rate FiO2 06/12/22 07:53 2 06/12/22 04:19 BiPAP 06/12/22 00:45 30 06/12/22 03:24 06/12/22 00:45 30 06/11/22 23:07 PG Care Time/CCT Total # of Minutes Spent Total Time Spent with Patient: Total time spent is greater than 50% in coordination of care (as documented) at patient's floor/unit and/or counseling patient: Coding Level of Care Code 22221 SUB INP/OBS CARE 2/35MIN Diagnoses Acute hypercapnic respiratory failure J96.02 Acute on chronic respiratory failure with hypoxemia J96.21 Severe obstructive sleep apnea G47.33 Restrictive lung disease J98.4 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
--- NOTE | 2022-06-12 10:28 | Discharge Summary ---
Date of Service June 12, 2022 Principal Diagnosis Acute on chronic hypercarbic/hypoxic respiratory failure, acute kidney injury, hypokalemia Discharge Exam General-alert and oriented x3, no fevers, no chills HEENT-head atraumatic and normocephalic, pupils equal and reactive to light, extraocular muscles intact Neck-no lymphadenopathy or thyromegaly, trachea midline Chest-diminished breath sounds bilaterally. No rales wheezing or rhonchi Cardiac-regular rate and rhythm, normal S1 and S2 Abdomen-normal bowel sounds, nontender, no hepatosplenomegaly Extremities-no cyanosis, clubbing, or edema Neuro-cranial nerves II through XII intact, motor and sensory function within normal limits, strength symmetrical , no focal deficits Psych-normal affect, normal mood Discharge Data Allergies Allergy/AdvReac Type Severity Reaction Status Date / Time bee venom protein (honey bee) Allergy Intermediate EXCESSIVE Verified 06/11/22 00:38 SWELLING AT SITE sulfamethoxazole Allergy Intermediate TONGUE Verified 06/11/22 00:38 SWELLS, WHITE BLISTERS IN MOUTH. trimethoprim Allergy Intermediate TONGUE Verified 06/11/22 00:38 SWELLS, WHITE BLISTERS IN MOUTH. adhesive Allergy Mild SKIN Verified 06/11/22 00:38 IRRITATION morphine AdvReac Intermediate PROJECTILE Verified 06/11/22 00:38 VOMITING Consultations 06/11/22 01:47 ED Decision to Admit Stat 06/11/22 04:19 Consult Pulmonology Routine Ordered Studies 06/10/22 22:31 CT head/brain wo con Urgent 06/10/22 23:20 CT abd pelvis wo con Urgent CT chest diagnostic wo con Urgent Hospital Course (1) Restrictive lung disease: Chronic. Pulmonary medicine consultation appreciated. Steroids have been discontinued. He is now back to his baseline (2) Acute on chronic respiratory failure with hypoxemia: Present on admission. Now back to baseline. Appreciate pulmonary medicine consultation and recommendations. Steroids have been discontinued (3) Acute kidney injury: Now resolved with IV fluids. Lisinopril has been discontinued (4) Chronic pain: Controlled with current pain management (5) Diaphragmatic disorder: Chronic (6) Hyperkalemia: Now resolved. Lisinopril has been discontinued Plan Discharge to home today, June 12 Total Time Total Time Spent Total Time Spent (In Minutes): 35 minutes Discharge Plan Discharge Items Patient Disposition: Home - Self-Care Reason For Visit: ACUTE ON CHRONIC RESP FAILURE WITH HYPOXIA AND HYP Discharge Diagnosis: Acute on chronic hypercarbic/hypoxemic respiratory failure, acute kidney injury, hyperkalemia Condition on Discharge: Fair Activity: Resume your previous activity Non-emergency contact: Primary Care Provider and Bead Inspector Call non-emergency contact if: you have any medication questions and your symptoms worsen Follow-up/Referrals: Francis Rubin, [employer] [Primary Care Provider] - Diet: Heart Healthy Addtl Attending Provider Instructions: Lisinopril has been discontinued Pending Studies at Discharge: No Stand-Alone Forms: [place] [facility] [place] [facility] [employer], Smoking Cessation Medications and DC Order Prescriptions: Continued alfuzosin 10 mg tablet extended release 24 hr 10 mg PO HS Rx Instructions: administer after the same meal each day testosterone [AndroGel] 20.25 mg/1.25 gram (1.62 %) gel in metered-dose pump 2 pump topical HS Qty: 75 5RF Rx Instructions: apply 1 pump amount over max area of each upper arm and shoulder PDMP queried, ok to fill - TR pramipexole 0.5 mg tablet 0.5 mg PO HS cyclobenzaprine 10 mg tablet 10 mg PO HS loratadine [Claritin] 10 mg tablet 10 mg PO DAILY PRN (Reason: Congestion) ondansetron 4 mg tablet,disintegrating 4 mg PO Q8H PRN (Reason: Nausea And Vomiting) ferrous sulfate 325 mg (65 mg iron) tablet 325 mg PO Q OTHER DAY folic acid 1 mg tablet 1 mg PO HS ascorbic acid (vitamin C) 500 mg tablet 250 mg PO HS naloxegol 25 mg tablet 25 mg PO QAM Rx Instructions: must be taken on empty stomach; no food 1 hr after or 2-3 hrs before dose gabapentin 300 mg capsule 300 mg PO TID Qty: 90 3RF Rx Instructions: 05/25/22 : BEGIN THIS NEW MED WITH SMALLER DOSE, THEN TRANSITION TO 300MG THREE TIMES DAILY ON 06/11/22. cholecalciferol (vitamin D3) 25 mcg (1,000 unit) capsule 2,000 units PO HS famotidine 20 mg tablet 20 mg PO HS omeprazole 20 mg capsule,delayed release(DR/EC) 20 mg PO HS dicyclomine 10 mg capsule 10 mg PO BID PRN (Reason: ABD PAIN) fentanyl 100 mcg/hr patch 72 hour 100 mcg transdermal Q48H aspirin [Alice Low Dose Aspirin] 81 mg tablet,delayed release (DR/EC) 81 mg PO HS pravastatin 40 mg Tablet 20 mg PO HS cyanocobalamin (vitamin B-12) 2,500 mcg tablet 2,500 mcg PO HS ciprofloxacin HCl [Cipro] 500 mg tablet 500 mg PO BID Qty: 15 0RF Rx Instructions: BEGIN 06/03/22 X 8 DAYS metronidazole 500 mg tablet 500 mg PO TID Qty: 22 0RF metoprolol tartrate 25 mg tablet 25 mg PO BID Qty: 60 0RF Discontinued lisinopril 5 mg tablet 5 mg PO HS Discharge Orders: Discharge Order (Routine); Ordered 06/12/22 Ordered By: Yvan Noble Admission Data Admit Date/Time: 06/11/22 02:26 Attending Provider: Yvan Noble Admit Provider: Martínez oM Primary Care Provider: Francis Rubin Other Providers: Mo King ; Martínez Mo ; [facility] Coding Level of Care Code HOSP INP/OBS DISCH >30 MIN Diagnoses Restrictive lung disease J98.4 Acute on chronic respiratory failure with hypoxemia J96.21 Acute kidney injury N17.9 Chronic pain G89.29 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
== END 2022-06-12 13:02 | disposition home or self-care (01) | DRG 189 ==
LOC: ED 22:12 → SUATTDRO 06-11 02:26 → 4W 06-11 02:26

== ENCOUNTER 2022-06-17 16:19 | Inpatient (IN) ==
--- NOTE | 2022-06-17 16:42 | Emergency Department Note ---
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 Here to the ED the patient is somewhat slow to respond to my questions but he is alert and oriented x3. He does not have any focal deficits. Patient's is at the bedside and states he was complaining earlier today of a headache, he fell asleep on the couch and when she went to wake him up to tell him something he would not wake up. He was unresponsive for about 12 minutes until EMS arrived. On arrival here to the ED the patient is alert, he is stable on nasal cannula oxygen, he is otherwise in no acute distress on my initial assessment. ROS: - Per HPI *Outpatient medications and allergy history reviewed. *Pertinent external medical records reviewed. 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 Mentation did improve by the time EMS arrived. On my initial assessment the patient is somewhat drowsy appearing but he is alert to verbal stimuli, he is alert and oriented x3. He does quickly fall back asleep, he stated that he had a headache earlier today. IV was established, lab work obtained, patient was maintained on 4L nasal cannula oxygen with good improvement in his saturations (Per EMS report patient was at 88% on RA). Chest x-ray shows stable elevation of right hemidiaphragm with some mild pulmonary vascular congestion. Venous blood gas shows evidence of hypercarbic respiratory failure with a CO2 of 74, pH is acidotic at 7.26. Patient was given DuoNeb breathing treatment, IV Solu-Medrol, he was placed on BiPAP. CT imaging of the head was obtained that shows no evidence of any acute intracranial injury. Troponin is negative. EKG does not show any ischemic changes. Given all the above, I suspect that the patient's altered mentation was secondary to hypercarbia that he experienced likely when he fell asleep. Of note, given the patient's diminished mentation, fentanyl patch to the right upper extremity that the patient wears for chronic pain was removed. On my reassessment the patient remains alert to verbal stimuli but he is still somewhat drowsy appearing, he will be maintained on BiPAP and admitted to the [facility] hospitalist service for further management and trending of PCO2 levels. I discussed all of the above with the patient's at the bedside she is in agreement. Patient was placed for admission in stable condition. Consultants: Hospitalist service, [facility] Disposition discussion held by myself with: Patient and at bedside * CRITICAL CARE TIME: (45) minutes -Stabilization of hypoxia with hypercarbic respiratory failure requiring noninvasive positive pressure ventilation for improvement, time spent at the bedside, discussion with patient and , interpretation of diagnostic studies and EKG, consultation of respiratory therapy for BiPAP therapy to be initiated, consultation of hospitalist service for admission Diagnosis: 1. Altered mental status, acute 2. Hypercarbic respiratory failure with acidosis, acute on chronic 3. Acute hypoxic respiratory failure Disposition: Admission Dario Good DO Emergency Medicine Past Med/Surg History Medical History (Updated 06/17/22 @ 18:17 by Dario Good DO) Acute on chronic respiratory failure with hypoxemia Atypical chest pain BPH (benign prostatic hyperplasia) Chronic back pain Chronic respiratory failure Depression GERD (gastroesophageal reflux disease) History of acute renal failure Hypertension Hypogonadotropic hypogonadism in male Hypoxia Leukocytosis Metabolic encephalopathy Non-ST elevation [place] (NSTEMI) Prostatitis Recurrent pneumonia RLS (restless legs syndrome) Surgical History History of ankle surgery Britton reconstruction-right side History of carpal tunnel release History of mandibular surgery History of surgery mass removed from left side of clavicle Status post trigger finger release Family History Mother Cancer Hypertension Myasthenia gravis Son Environmental allergies Asthma Sister Gallbladder disease Father Alzheimer disease Other No family history of bleeding disorder Social History Smoking Status: Never smoker Tobacco Type: Cigarettes Second Hand Exposure: No; Hx Alcohol Use: No Hx Substance Use: No Preferred Language: Tajik Communication Ability: Effective Optical Advisor Required: No Beliefs That Will Affect Care: None marital status: Current Living Situation: Spouse current occupational status: retired Feels Safe at Home: Yes Assistive Devices: Cane, Glasses, Oxygen - at Night and Wheelchair Allergies Allergies Allergy/AdvReac Type Severity Reaction Status Date / Time bee venom protein (honey bee) Allergy Intermediate EXCESSIVE Verified 06/11/22 00:38 SWELLING AT SITE sulfamethoxazole Allergy Intermediate TONGUE Verified 06/11/22 00:38 SWELLS, WHITE BLISTERS IN MOUTH. trimethoprim Allergy Intermediate TONGUE Verified 06/11/22 00:38 SWELLS, WHITE BLISTERS IN MOUTH. adhesive Allergy Mild SKIN Verified 06/11/22 00:38 IRRITATION morphine AdvReac Intermediate PROJECTILE Verified 06/11/22 00:38 VOMITING Home Meds Home Medications Medication Instructions Recorded Confirmed cyclobenzaprine 10 mg tablet 10 mg PO HS 02/28/19 06/11/22 omeprazole 20 mg capsule,delayed 20 mg PO HS 02/28/19 06/11/22 release pramipexole 0.5 mg tablet 0.5 mg PO HS 02/28/19 06/11/22 loratadine 10 mg tablet (Claritin) 10 mg PO DAILY PRN Congestion 03/13/19 06/11/22 ondansetron 4 mg disintegrating 4 mg PO Q8H PRN Nausea And Vomiting 04/10/19 06/11/22 tablet cholecalciferol (vitamin D3) 25 2,000 units PO HS 06/10/19 06/11/22 mcg (1,000 unit) capsule alfuzosin 10 mg tablet,extended 10 mg PO HS 02/12/20 06/11/22 release 24 hr dicyclomine 10 mg capsule 10 mg PO BID PRN ABD PAIN 02/12/20 06/11/22 famotidine 20 mg tablet 20 mg PO HS 03/08/20 06/11/22 pravastatin 40 mg tablet 20 mg PO HS 11/04/21 06/11/22 ascorbic acid (vitamin C) 500 mg 250 mg PO HS 01/11/22 06/11/22 tablet ferrous sulfate 325 mg (65 mg 325 mg PO Q OTHER DAY 01/11/22 06/11/22 iron) tablet folic acid 1 mg tablet 1 mg PO HS 01/11/22 06/11/22 aspirin 81 mg tablet,delayed 81 mg PO HS 02/22/22 06/11/22 release (Alice Low Dose Aspirin) fentanyl 100 mcg/hr transdermal 100 mcg transdermal Q48H 02/22/22 06/11/22 patch naloxegol 25 mg tablet 25 mg PO QAM 03/23/22 06/11/22 cyanocobalamin (vitamin B-12) 2,500 mcg PO HS 05/31/22 06/11/22 2,500 mcg tablet Previous Rx's Medication Instructions Recorded gabapentin 300 mg capsule 300 mg PO TID #90 caps 05/25/22 ciprofloxacin HCl 500 mg tablet 500 mg PO BID #15 tabs 06/03/22 (Cipro) metoprolol tartrate 25 mg tablet 25 mg PO BID #60 tabs 06/03/22 metronidazole 500 mg tablet 500 mg PO TID #22 tabs 06/03/22 testosterone (AndroGel) 2 pump topical HS #75 grams 06/08/22 Results & Data (ED) Vital Signs Vital Signs - 24 hr 06/17/22 16:34 06/17/22 16:40 06/17/22 16:45 Pulse Rate 100 H 98 H 101 H Pulse Rate [Apical] Respiratory Rate 14 15 Respiratory Effort / Characteristics Respiratory Depth Shallow Respiratory Pattern Blood Pressure 107/78 Blood Pressure Mean 87 Blood Pressure Position Sitting Pulse Oximetry 96 96 Oxygen Delivery Method Nasal Cannula Nasal Cannula Oxygen Flow Rate 4 5 Fraction of Inspired Oxygen Sepsis Recent Fever Within 48 Hours No Sepsis New/Unexplained Change in Mental Status No Sepsis Action Taken by Nursing No Action Required 06/17/22 17:24 06/17/22 18:05 Pulse Rate 89 Pulse Rate [Apical] 87 Respiratory Rate 14 16 Respiratory Effort / Characteristics Spontaneous Non-Labored Spontaneous Respiratory Depth Normal Respiratory Pattern Regular Blood Pressure Blood Pressure Mean Blood Pressure Position Pulse Oximetry 95 97 Oxygen Delivery Method BiPAP Oxygen Flow Rate Fraction of Inspired Oxygen 50 50 Sepsis Recent Fever Within 48 Hours Sepsis New/Unexplained Change in Mental Status Sepsis Action Taken by Nursing Laboratory Data 06/17/22 16:36 06/17/22 16:38 Lab Results 06/17/22 06/17/22 06/17/22 Range/Units 16:36 16:36 16:38 WBC 8.76 (4.8-10.8) K/ul RBC 4.36 L (4.70-6.10) M/uL Hgb 14.4 (14.0-18.0) g/dl Hct 43.9 (42.0-52.0) % MCV 100.7 H (80.0-100.0) fL MCH 33.0 (25.0-34.0) pg MCHC 32.8 (32.0-36.0) g/dL RDW Std Deviation 56.1 H (36.4-46.3) fL RDW Coeff of Netta 15.0 H (11.5-14.5) % Plt Count 238 (130-400) K/uL MPV 9.3 L (9.4-12.4) fL Immature Gran % (Auto) 1.1 % Neut % (Auto) 78.9 % Lymph % (Auto) 10.0 % Caroline % (Auto) 8.4 % Eos % (Auto) 1.3 % Baso % (Auto) 0.3 % Neut # (Auto) 6.90 H (1.40-6.50) K/uL Lymph # (Auto) 0.88 L (1.2-3.4) K/uL Caroline # (Auto) 0.74 H (0.11-0.59) K/uL Eos # (Auto) 0.11 (0-0.50) K/uL Baso # (Auto) 0.03 (0-0.2) K/uL Immature Gran # (Auto) 0.10 (0.01-0.20) K/uL PT 11.2 (9.0-12.0) Seconds INR 1.1 (0.9-1.1) APTT 24.5 (21.0-31.0) Seconds PTT Ratio 0.9 VBG pH (7.36-7.41) VBG pCO2 (38-50) mmHg VBG pO2 mmHg VBG HCO3 mmol/L VBG O2 Saturation % VBG Base Excess mEq/L Sodium 137 (136-145) mmol/L Potassium 4.8 (3.5-5.1) mmol/L Chloride 101 (98-107) mmol/L Carbon Dioxide 36 H (21-32) mmol/L Anion Gap 0 L (3-11) BUN 24 H (6-23) mg/dl Creatinine 1.03 (0.6-1.4) mg/dl Est Cr Clr Drug Dosing 78.7 ml/min Est GFR ( Amer) 84.9 ml/min Est GFR (Non-Af Amer) 73.3 ml/min BUN/Creatinine Ratio 23.3 H (10-20) Glucose 108 H (70-99(Fasting)) mg/dl Calcium 8.8 (8.5-10.1) mg/dl Total Bilirubin 1.0 (0.2-1.0) mg/dl AST 20 (13-39) U/L ALT 16 (7-52) U/L Alkaline Phosphatase 40 (34-104) U/L Troponin I High Sens 10.9 (0-20) pg/ml Total Protein 7.0 (6.0-8.3) gm/dl Albumin 4.3 (3.4-5.0) gm/dl Globulin 2.7 (2.5-4.0) gm/dl Albumin/Globulin Ratio 1.6 (0.9-2) Lipase 12 (11-82) U/L Ethyl Alcohol mg/dL (<10.0) mg/dl SARS-CoV-2, RNA, NAAT (NEGATIVE) 06/17/22 06/17/22 06/17/22 Range/Units 16:55 16:55 17:48 WBC (4.8-10.8) K/ul RBC (4.70-6.10) M/uL Hgb (14.0-18.0) g/dl Hct (42.0-52.0) % MCV (80.0-100.0) fL MCH (25.0-34.0) pg MCHC (32.0-36.0) g/dL RDW Std Deviation (36.4-46.3) fL RDW Coeff of Netta (11.5-14.5) % Plt Count (130-400) K/uL MPV (9.4-12.4) fL Immature Gran % (Auto) % Neut % (Auto) % Lymph % (Auto) % Caroline % (Auto) % Eos % (Auto) % Baso % (Auto) % Neut # (Auto) (1.40-6.50) K/uL Lymph # (Auto) (1.2-3.4) K/uL Caroline # (Auto) (0.11-0.59) K/uL Eos # (Auto) (0-0.50) K/uL Baso # (Auto) (0-0.2) K/uL Immature Gran # (Auto) (0.01-0.20) K/uL PT (9.0-12.0) Seconds INR (0.9-1.1) APTT (21.0-31.0) Seconds PTT Ratio VBG pH 7.26 L (7.36-7.41) VBG pCO2 74 H (38-50) mmHg VBG pO2 49 mmHg VBG HCO3 33 mmol/L VBG O2 Saturation 78.0 % VBG Base Excess 3.7 mEq/L Sodium (136-145) mmol/L Potassium (3.5-5.1) mmol/L Chloride (98-107) mmol/L Carbon Dioxide (21-32) mmol/L Anion Gap (3-11) BUN (6-23) mg/dl Creatinine (0.6-1.4) mg/dl Est Cr Clr Drug Dosing ml/min Est GFR ( Amer) ml/min Est GFR (Non-Af Amer) ml/min BUN/Creatinine Ratio (10-20) Glucose (70-99(Fasting)) mg/dl Calcium (8.5-10.1) mg/dl Total Bilirubin (0.2-1.0) mg/dl AST (13-39) U/L ALT (7-52) U/L Alkaline Phosphatase (34-104) U/L Troponin I High Sens (0-20) pg/ml Total Protein (6.0-8.3) gm/dl Albumin (3.4-5.0) gm/dl Globulin (2.5-4.0) gm/dl Albumin/Globulin Ratio (0.9-2) Lipase (11-82) U/L Ethyl Alcohol mg/dL < 10.0 (<10.0) mg/dl SARS-CoV-2, RNA, NAAT NEGATIVE (NEGATIVE) Administered Medications Discontinued Medications Albuterol (Albut/Ipratrop 3mg/0.5mg Neb 3 Ml Vial) 3 ml NEB NOW STA; Protocol Stop: 06/17/22 17:52 Last Admin: 06/17/22 18:02 Dose: 3 ml Documented By: GRETTA Methylprednisolone (Methylprednisolone 125 Mg/2 Ml Vial) 125 mg IV NOW STA Stop: 06/17/22 17:52 Last Admin: 06/17/22 18:06 Dose: 125 mg Documented By: QGV Imaging Data Radiologist's Impression: Chest X-Ray 06/17/22 16:32 XR chest 1V portable CLINICAL HISTORY: Chest pain, nonspecific COMPARISON STUDY: Chest radiograph June 10, [address] June 11, 2022. FINDINGS: Elevation of the right hemidiaphragm is unchanged. There is no pneumothorax or pleural effusion. Cardiomediastinal silhouette is stable. There is pulmonary vascular congestion. No consolidation is identified to suggest pneumonia. IMPRESSION: 1. Stable elevation of the right hemidiaphragm. 2. Cardiomegaly with pulmonary vascular congestion. ACT 112: Negative or not required by law. Electronically signed by: Teo Paulino M.D. 06/17/2022 5:[address] 06/17/22 16:41 CT OF THE HEAD WITHOUT CONTRAST CLINICAL HISTORY: Headache, episode of lethargy COMPARISON STUDY: MRI of the brain January 12, [address] June 11, 2022. CT DOSE: 3536.33 mGy.cm TECHNIQUE: Helical axial images of the head were obtained without IV contrast. Automated exposure control was utilized for the study. A dose lowering technique was utilized adhering to the principles of ALARA. FINDINGS: This study is mildly compromised by motion artifact. No acute intracranial hemorrhage, midline shift or mass effect is present. The ventricular system is stable. White matter hypodensity suggests small vessel d isease. The basal cisterns are patent. No extra-axial collections are present. There are no findings to suggest acute dural sinus thrombosis or acute territorial infarct. No significant calvarial abnormalities are present. Visualized portions of the sinuses and mastoid air cells are clear. IMPRESSION: No acute intracranial findings. Exam mildly compromised by motion artifact. ACT 112: Negative or not required by law. Electronically signed by: Teo Paulino M.D. 06/17/2022 5:59 PM Discharge Plan Visit Data Chief Complaint: Syncope Stated Complaint: SYNCOPAL EPISODE, HEADACHE ED Provider: Dario Good Discharge Problem: Hypercarbia Forms Stand Alone Forms: My [facility] Document Agility Prescriptions Prescriptions: No Action alfuzosin 10 mg tablet extended release 24 hr 10 mg PO HS Rx Instructions: administer after the same meal each day testosterone [AndroGel] 20.25 mg/1.25 gram (1.62 %) gel in metered-dose pump 2 pump topical HS Qty: 75 5RF Rx Instructions: apply 1 pump amount over max area of each upper arm and shoulder PDMP queried, ok to fill - TR pramipexole 0.5 mg tablet 0.5 mg PO HS cyclobenzaprine 10 mg tablet 10 mg PO HS loratadine [Claritin] 10 mg tablet 10 mg PO DAILY PRN (Reason: Congestion) ondansetron 4 mg tablet,disintegrating 4 mg PO Q8H PRN (Reason: Nausea And Vomiting) ferrous sulfate 325 mg (65 mg iron) tablet 325 mg PO Q OTHER DAY folic acid 1 mg tablet 1 mg PO HS ascorbic acid (vitamin C) 500 mg tablet 250 mg PO HS naloxegol 25 mg tablet 25 mg PO QAM Rx Instructions: must be taken on empty stomach; no food 1 hr after or 2-3 hrs before dose gabapentin 300 mg capsule 300 mg PO TID Qty: 90 3RF Rx Instructions: 05/25/22 : BEGIN THIS NEW MED WITH SMALLER DOSE, THEN TRANSITION TO 300MG THREE TIMES DAILY ON 06/11/22. cholecalciferol (vitamin D3) 25 mcg (1,000 unit) capsule 2,000 units PO HS famotidine 20 mg tablet 20 mg PO HS omeprazole 20 mg capsule,delayed release(DR/EC) 20 mg PO HS dicyclomine 10 mg capsule 10 mg PO BID PRN (Reason: ABD PAIN) fentanyl 100 mcg/hr patch 72 hour 100 mcg transdermal Q48H aspirin [Alice Low Dose Aspirin] 81 mg tablet,delayed release (DR/EC) 81 mg PO HS pravastatin 40 mg Tablet 20 mg PO HS cyanocobalamin (vitamin B-12) 2,500 mcg tablet 2,500 mcg PO HS ciprofloxacin HCl [Cipro] 500 mg tablet 500 mg PO BID Qty: 15 0RF Rx Instructions: BEGIN 06/03/22 X 8 DAYS metronidazole 500 mg tablet 500 mg PO TID Qty: 22 0RF metoprolol tartrate 25 mg tablet 25 mg PO BID Qty: 60 0RF Referrals Referrals: Francis Rubin, [facility] [Primary Care Provider] -
[2022-06-17 17:01] LABS: Base Excess VBG 3.7 mEq/L; HCO3 VBG 33 mmol/L; PCO2 VBG 74 mmHg (38-50); PO2 VBG 49 mmHg; pH VBG 7.26 (7.36-7.41)
[2022-06-17 17:04] LABS: Basophils # (auto) 0.03 K/uL (0-0.2); Basophils % (auto) 0.3 %; Eosinophils # (auto) 0.11 K/uL (0-0.50); Eosinophils % (auto) 1.3 %; Hematocrit (blood only) 43.9 % (42.0-52.0); Hemoglobin 14.4 g/dl (14.0-18.0); Immature Granulocytes % (auto) 1.1 %; Lymphocytes # (auto) 0.88 K/uL (1.2-3.4); Mean Corpuscular Hgb Conc 32.8 g/dL (32.0-36.0); Mean Corpuscular Volume 100.7 fL (80.0-100.0); Mean Platelet Volume 9.3 fL (9.4-12.4); Monocytes # (auto) 0.74 K/uL (0.11-0.59); Monocytes % (auto) 8.4 %; Neutrophils % (auto) 78.9 %; Platelet Count 238 K/uL (130-400); RDW Standard Deviation 56.1 fL (36.4-46.3); Red Blood Count 4.36 M/uL (4.70-6.10); White Blood Count 8.76 K/ul (4.8-10.8)
[2022-06-17 17:10] LABS: Albumin Globulin Ratio 1.6 (0.9-2); Albumin Level 4.3 gm/dl (3.4-5.0); BUN Creatinine Ratio 23.3 (10-20); Calcium 8.8 mg/dl (8.5-10.1); Creatinine Clr Calc Pharmacy 78.7 ml/min; Est GFR (African American) 84.9 ml/min; Est GFR (Non-African American) 73.3 ml/min; Globulin 2.7 gm/dl (2.5-4.0); Potassium 4.8 mmol/L (3.5-5.1)
--- NOTE | 2022-06-17 17:10 | XRay Report ---
XR chest 1V portable CLINICAL HISTORY: Chest pain, nonspecific COMPARISON STUDY: Chest radiograph June 10, [address] June 11, 2022. FINDINGS: Elevation of the right hemidiaphragm is unchanged. There is no pneumothorax or pleural effu donna. Cardiomediastinal silhouette is stable. There is pulmonary vascular congestion. No consolidatio n is identified to suggest pneumonia. IMPRESSION: 1. Stable elevation of the right hemidiaphragm. 2. Cardiomegaly with pulmonary vascular congestion. ACT 112: Negative or not required by law. Electronically signed by: Teo Paulino M.D. 06/17/2022 5:08 PM
[2022-06-17 17:18] LABS: Troponin I High Sensitivity 10.9 pg/ml (0-20)
[2022-06-17 17:21] LABS: INR 1.1 (0.9-1.1); Partial Thromboplastin Ratio 0.9; Partial Thromboplastin Time 24.5 Seconds (21.0-31.0); Prothrombin Time 11.2 Seconds (9.0-12.0)
[2022-06-17] MEDS ORDERED: methylPREDNISolone 125 MG/2 ML VIAL IV STA (17:51)
[2022-06-17] MEDS ORDERED: ALBUT/IPRATROP 3MG/0.5MG NEB 3 ML VIAL NEB STA (17:51)
--- NOTE | 2022-06-17 17:55 | History & Physical Report ---
Date of Service June 17, 2022 History of Present Illness Chief Complaint: AMS/unresponsiveness Primary Care Provider: Francis Rubin, [facility] Basim Edvin is a 71yo male with history of restrictive lung disease due to elevated hemidiaphragm with hypercarbic/hypoxemic respiratory failure on chronic O2 therapy, GERD, HTN, SVT, CHITRA on HS CPAP, chronic pain, Depression, GERD and a pituitary microadenoma who presented to the [facility] ED on 06/17/22 due to AMS and possible unresponsive episode. In the ED the patient was found to be Per chart review, the patient was recently admitted to [facility] from 06/11/22- 06/12/22 for acute on chronic hypoxemic respiratory failure with hypoxemia and hypercapnia, appendicitis, and WANG. The patient was evaluated by Pulmonology who believed his acute on chronic respiratory failure to be due to hypercapnia from his chronic respiratory failure. His respiratory status improved with initial Bipap treatment and adequate use of his HS CPAP. He was found to have a dilated appendix on CT while in the ED and was evaluated by General Surgery. The patient's appendicaeal inflammation was previously noted on his prior admission to [facility] from 05/31/22-06/03/22 due to SVT and possible appendicitis. At that time he was evaluated by general surgery and found to be asymptomatic and stable. They recommended conservative treatment with a 10 day course of Ciprofloxacin and Flagyl. The patient was again asymptomatic and due to his unstable respiratory status at the time of admission he was treated conservatively with Zosyn. His WANG was resolved with IV fluids and his Lisinopril was discontinued on discharge. Allergies Allergy/AdvReac Type Severity Reaction Status Date / Time bee venom protein (honey bee) Allergy Intermediate EXCESSIVE Verified 06/11/22 00:38 SWELLING AT SITE sulfamethoxazole Allergy Intermediate TONGUE Verified 06/11/22 00:38 SWELLS, WHITE BLISTERS IN MOUTH. trimethoprim Allergy Intermediate TONGUE Verified 06/11/22 00:38 SWELLS, WHITE BLISTERS IN MOUTH. adhesive Allergy Mild SKIN Verified 06/11/22 00:38 IRRITATION morphine AdvReac Intermediate PROJECTILE Verified 06/11/22 00:38 VOMITING Home Medications Medication Instructions Recorded Confirmed Type cyclobenzaprine 10 mg tablet 10 mg PO HS 02/28/19 06/11/22 History omeprazole 20 mg capsule,delayed 20 mg PO HS 02/28/19 06/11/22 History release pramipexole 0.5 mg tablet 0.5 mg PO HS 02/28/19 06/11/22 History loratadine 10 mg tablet (Claritin) 10 mg PO DAILY PRN Congestion 03/13/19 06/11/22 History ondansetron 4 mg disintegrating 4 mg PO Q8H PRN Nausea And Vomiting 04/10/19 06/11/22 History tablet cholecalciferol (vitamin D3) 25 2,000 units PO HS 06/10/19 06/11/22 History mcg (1,000 unit) capsule alfuzosin 10 mg tablet,extended 10 mg PO HS 02/12/20 06/11/22 History release 24 hr dicyclomine 10 mg capsule 10 mg PO BID PRN ABD PAIN 02/12/20 06/11/22 History famotidine 20 mg tablet 20 mg PO HS 03/08/20 06/11/22 History pravastatin 40 mg tablet 20 mg PO HS 11/04/21 06/11/22 History ascorbic acid (vitamin C) 500 mg 250 mg PO HS 01/11/22 06/11/22 History tablet ferrous sulfate 325 mg (65 mg 325 mg PO Q OTHER DAY 01/11/22 06/11/22 History iron) tablet folic acid 1 mg tablet 1 mg PO HS 01/11/22 06/11/22 History aspirin 81 mg tablet,delayed 81 mg PO HS 02/22/22 06/11/22 History release (Alice Low Dose Aspirin) fentanyl 100 mcg/hr transdermal 100 mcg transdermal Q48H 02/22/22 06/11/22 History patch naloxegol 25 mg tablet 25 mg PO QAM 03/23/22 06/11/22 History gabapentin 300 mg capsule 300 mg PO TID #90 caps 05/25/22 06/11/22 Rx cyanocobalamin (vitamin B-12) 2,500 mcg PO HS 05/31/22 06/11/22 History 2,500 mcg tablet ciprofloxacin HCl 500 mg tablet 500 mg PO BID #15 tabs 06/03/22 06/11/22 Rx (Cipro) metoprolol tartrate 25 mg tablet 25 mg PO BID #60 tabs 06/03/22 06/11/22 Rx metronidazole 500 mg tablet 500 mg PO TID #22 tabs 06/03/22 06/11/22 Rx testosterone (AndroGel) 2 pump topical HS #75 grams 06/08/22 06/11/22 Rx Past Med/Surg History Medical History (Updated 06/12/22 @ 10:26 by Yvan Noble MD) Acute on chronic respiratory failure with hypoxemia Atypical chest pain BPH (benign prostatic hyperplasia) Chronic back pain Chronic respiratory failure Depression GERD (gastroesophageal reflux disease) History of acute renal failure Hypertension Hypogonadotropic hypogonadism in male Hypoxia Leukocytosis Metabolic encephalopathy Non-ST elevation [place] (NSTEMI) Prostatitis Recurrent pneumonia RLS (restless legs syndrome) Surgical History History of ankle surgery Britton reconstruction-right side History of carpal tunnel release History of mandibular surgery History of surgery mass removed from left side of clavicle Status post trigger finger release Family History Mother Cancer Hypertension Myasthenia gravis Son Environmental allergies Asthma Sister Gallbladder disease Father Alzheimer disease Other No family history of bleeding disorder Social History Smoking Status: Never smoker Tobacco Type: Cigarettes Second Hand Exposure: No; Hx Alcohol Use: No Hx Substance Use: No Preferred Language: Liberian Communication Ability: Effective Snow Blower Required: No Beliefs That Will Affect Care: None marital status: Current Living Situation: Spouse current occupational status: retired Feels Safe at Home: Yes Assistive Devices: Cane, Glasses, Oxygen - at Night and Wheelchair Results & Data Results & Data ([facility]) Vital Signs (Past 12 Hours) Vital Signs Pulse Resp BP Pulse Ox O2 Del Method O2 Flow Rate FiO2 06/17/22 17:24 89 14 95 50 06/17/22 16:45 101 H 15 107/78 96 Nasal Cannula 5 06/17/22 16:40 98 H 14 96 Nasal Cannula 4 06/17/22 16:34 100 H PG Care Time/CCT Total # of Minutes Spent Total Time Spent with Patient: Total time spent is greater than 50% in coordination of care (as documented) at patient's floor/unit and/or counseling patient: Coding Diagnoses
--- NOTE | 2022-06-17 18:01 | CT Scan Report ---
CT OF THE HEAD WITHOUT CONTRAST CLINICAL HISTORY: Headache, episode of lethargy COMPARISON STUDY: MRI of the brain January 12, [address] June 11, 2022. CT DOSE: 3536.33 mGy.cm TECHNIQUE: Helical axial images of the head were obtained without IV contrast. Automated exposure con trol was utilized for the study. A dose lowering technique was utilized adhering to the principles o f ALARA. FINDINGS: This study is mildly compromised by motion artifact. No acute intracranial hemorrhage, midl ine shift or mass effect is present. The ventricular system is stable. White matter hypodensity sugge sts small vessel disease. The basal cisterns are patent. No extra-axial collections are present. Ther e are no findings to suggest acute dural sinus thrombosis or acute territorial infarct. No significan t calvarial abnormalities are present. Visualized portions of the sinuses and mastoid air cells are c lear. IMPRESSION: No acute intracranial findings. Exam mildly compromised by motion artifact. ACT 112: Negative or not required by law. Electronically signed by: Teo Paulino M.D. 06/17/2022 5:59 PM
--- NOTE | 2022-06-17 18:20 | History & Physical Report ---
Date of Service June 17, 2022 Assessment & Plan (1) AMS (altered mental status): Plan: -Admit to the PCU -The patient is currently afebrile, hemodynamically stable, and stable on Bipap -At this time the patient's AMS and acute respiratory failure are most likely due to hypercapnia as a result of not using CPAP while sleeping during the day -VBG is showing a pH of 7.26, pCO2 of 74 and pO2 of 49 -CT of the head is negative for acute findings, no leukocytosis or consolidations on CXR to suggest acute infection -Patient is alert and oriented when woken but currently very fatigued -S/P 125 mg IV methylprednisolone and a DuoNeb treatment, will hold additional steroids at this time -Continue Bipap overnight, can have small breaks for medication and sips of water when he becomes more alert -Will order an ABG tonight to ensure he is adequately responding to Bipap therapy and will order an AM ABG as well -Instructed the patient's that the patient needs to wear his Cpap machine if he sleeps during the day to prevent recurrent episodes -BL SCDs and Sub-Q lovenox for DVT PPX -AM CBC, CMP, and Mag (2) Hypercarbia: Plan: -See AMS (3) Acute hypercapnic respiratory failure: Plan: -See AMS (4) SVT (supraventricular tachycardia): Plan: -Recently diagnosed during his admission at the beginning of the month -Currently stable, continue metoprolol (5) RLS (restless legs syndrome): Plan: -Continue gabapentin (6) Severe obstructive sleep apnea: Plan: -HS CPAP ordered, patient will likely be on Bipap the rest of the night (7) GERD (gastroesophageal reflux disease): Plan: -Continue omeprazole and famotidine (8) Hypertension: Plan: -Stable -Continue metoprolol -Lisinopril was discontinued after last admission due to WANG -Renal function is currently back to baseline, could consider restarting if he is hypertensive during this admission (9) Chronic pain: Plan: -Patient is typically on a 100 mcg Fentanyl patch q48h, gabapentin 300 mg TID, 10 mg flexeril HS, -Fentanyl patch was removed in the ED -Patient's states that they are considering decreasing the dose of his fentanyl patch due to sedation/fatigue -Will hold his fentanyl patch and flexeril for now until he is more alert and stable, will needed to restart in the next 12-24 hours to prevent withdrawal -Continue gabapentin Plan The patient was discussed with Dr. Oliveros at the time of the admission History of Present Illness Chief Complaint: AMS/Possible unresponsiveness Primary Care Provider: Francis Rubin, MATEO Stallworth Edvin is a 71yo male with history of restrictive lung disease due to elevated hemidiaphragm with hypercarbic/hypoxemic respiratory failure on chronic O2 therapy, GERD, HTN, SVT, CHITRA on HS CPAP, chronic pain, Depression, GERD and a pituitary microadenoma who presented to the [facility] ED on 06/17/22 due to AMS and possible unresponsive episode. In the ED the patient was found to be afebrile, hemodynamically stable, and stable on his baseline O2. Labs were remarkable for a WBC WNL, stable Hgb and platelets, MCV of 100.7, VBG showing a pH of 7.26, pCO2 of 74, and pO2 of 49, stable Cr at 1.03, stable electrolytes, AG of ) with bicarb of 36, LFT's WNL, initial high sensitivity trop of 10.9, negative alcohol level, and covid [address] of the head was read as "No acute intracranial findings. Exam mildly compromised by motion artifact.". Chest xray was read as "1. Stable elevation of the right hemidiaphragm. 2. Cardiomegaly with pulmonary vascular congestion.". Prior to admission the patient was placed on Bipap, and given 125 mg IV methylprednisolone and a DuoNeb treatment. Per chart review, the patient was recently admitted to [facility] from 06/11/22-06/12/22 for acute on chronic hypoxemic respiratory failure with hypoxemia and hypercapnia, appendicitis, and WANG. The patient was evaluated by Pulmonology who believed his acute on chronic respiratory failure to be due to hypercapnia from his chronic respiratory failure. His respiratory status improved with initial Bipap treatment and adequate use of his HS CPAP. He was found to have a dilated appendix on CT while in the ED and was evaluated by General Surgery. The patient's appendiceal inflammation was previously noted on his prior admission to [facility] from 05/31/22-06/03/22 due to SVT and possible appendicitis. At that time he was evaluated by general surgery and found to be asymptomatic and stable. They recommended conservative treatment with a 10 day course of Ciprofloxacin and Flagyl. The patient was again asymptomatic and due to his unstable respiratory status at the time of admission he was treated conservatively with Zosyn. His WANG was resolved with IV fluids and his Lisinopril was discontinued on discharge. At the time of the exam the patient was sleeping with is bipap mask on and his sitting bedside, the majority of the history was obtained from his due to his current fatigue and mental status. She states that since his last discharge on 06/12 she has noticed a slow progression of fatigue and confusion like his previous episodes of of hypercapnia. She states that [facility] where [facility] discussed possibly decreasing he dose of his fentanyl patch as it may be causing him to be fatigue. Today, the patient took fell asleep in his recliner earlier in the afternoon and did not have his CPAP or oxygen per his . At approximately 2:30 pm his tried to wake him but could not. She called EMS and her son who came over and also had some trouble waking him. They were finally able to wake him and he was fatigued by was answering questions appropriately. She confirms that he has been wearing his CPAP machine at night but does not during the day if he falls asleep. She denies the patient having recent fever, chills, changes in vision, hearing, taste, and smell, cough, chest pain, abdominal pain, dysuria, hematuria, and recent trauma. I was able to wake the patient with a sternal rub. Once awake he was able to answer questions appropriately. He currently has a headache and has pain at the site where the ED Physician and myself sternal rubbed him. He denies all other complaints at this time. I confirmed his medication list with is , who confirms that he completed his courses of Flagyl and Ciprofloxacin. The patient is a Full Code and his would make medical decisions for him if he could not make them himself. His added that they are in the process of getting a Bipap machine which Dr. King has been coordinating. Please refer to Dr. Oliveros's attestation for any changes to the treatment plan Allergies Allergy/AdvReac Type Severity Reaction Status Date / Time bee venom protein (honey bee) Allergy Intermediate EXCESSIVE Verified 06/17/22 19:08 SWELLING AT SITE sulfamethoxazole Allergy Intermediate TONGUE Verified 06/17/22 19:08 SWELLS, WHITE BLISTERS IN MOUTH. trimethoprim Allergy Intermediate TONGUE Verified 06/17/22 19:08 SWELLS, WHITE BLISTERS IN MOUTH. adhesive Allergy Mild SKIN Verified 06/17/22 19:08 IRRITATION morphine AdvReac Intermediate PROJECTILE Verified 06/17/22 19:08 VOMITING Home Medications Medication Instructions Recorded Confirmed Type cyclobenzaprine 10 mg tablet 10 mg PO HS 02/28/19 06/17/22 History omeprazole 20 mg capsule,delayed 20 mg PO HS 02/28/19 06/17/22 History release pramipexole 0.5 mg tablet 0.5 mg PO HS 02/28/19 06/17/22 History loratadine 10 mg tablet (Claritin) 10 mg PO DAILY PRN Congestion 03/13/19 06/17/22 History ondansetron 4 mg disintegrating 4 mg PO Q8H PRN Nausea And Vomiting 04/10/19 06/17/22 History tablet cholecalciferol (vitamin D3) 25 2,000 units PO HS 06/10/19 06/17/22 History mcg (1,000 unit) capsule alfuzosin 10 mg tablet,extended 10 mg PO HS 02/12/20 06/17/22 History release 24 hr dicyclomine 10 mg capsule 10 mg PO BID PRN ABD PAIN 02/12/20 06/17/22 History famotidine 20 mg tablet 20 mg PO HS 03/08/20 06/17/22 History pravastatin 40 mg tablet 20 mg PO HS 11/04/21 06/17/22 History ascorbic acid (vitamin C) 500 mg 250 mg PO HS 01/11/22 06/17/22 History tablet folic acid 1 mg tablet 1 mg PO HS 01/11/22 06/17/22 History aspirin 81 mg tablet,delayed 81 mg PO HS 02/22/22 06/17/22 History release (Alice Low Dose Aspirin) fentanyl 100 mcg/hr transdermal 100 mcg transdermal Q48H 02/22/22 06/17/22 History patch naloxegol 25 mg tablet 25 mg PO QAM 03/23/22 06/17/22 History gabapentin 300 mg capsule 300 mg PO TID #90 caps 05/25/22 06/17/22 Rx metoprolol tartrate 25 mg tablet 25 mg PO BID #60 tabs 06/03/22 06/17/22 Rx testosterone (AndroGel) 2 pump topical HS #75 grams 06/08/22 06/17/22 Rx Past Med/Surg History Medical History (Updated 06/17/22 @ 19:15 by Monster Bennett PA-C) Acute on chronic respiratory failure with hypoxemia Atypical chest pain BPH (benign prostatic hyperplasia) Chronic back pain Chronic pain Chronic respiratory failure Depression GERD (gastroesophageal reflux disease) History of acute renal failure Hypertension Hypogonadotropic hypogonadism in male Hypoxia Leukocytosis Metabolic encephalopathy Non-ST elevation IL (NSTEMI) Prostatitis Recurrent pneumonia RLS (restless legs syndrome) Surgical History History of ankle surgery Britton reconstruction-right side History of carpal tunnel release History of mandibular surgery History of surgery mass removed from left side of clavicle Status post trigger finger release Family History Mother Cancer Hypertension Myasthenia gravis Son Environmental allergies Asthma Sister Gallbladder disease Father Alzheimer disease Other No family history of bleeding disorder Social History Smoking Status: Never smoker Tobacco Type: Cigarettes Second Hand Exposure: No; Hx Alcohol Use: No Hx Substance Use: No Preferred Language: Luxembourger Communication Ability: Effective Clinical Research Scientist Required: No Beliefs That Will Affect Care: None marital status: Current Living Situation: Spouse current occupational status: retired Other Information That Helps Us Care for You: No Feels Safe at Home: Yes Safety Concerns: Feels Safe At This Time Assistive Devices: Cane, CPAP, Denture - Upper and Denture - Lower Review of Systems Review of Systems: Denies current fever, chills, changes in vision, hearing, taste, and smell, chest pain, cough, abdominal pain, nausea, vomiting, diarrhea, hematemesis, melena, dysuria, hematuria, and recent falls. All systems have been reviewed and are otherwise negative. Physical Exam Physical Exam: Physical Exam: General: In no acute distress, very fatigued, stated age, chronically ill- appearing HEENT: Normocephalic, atraumatic, patient currently with Bipap mask in place but it appears to not have an adequate seal, no scleral icterus, pupils around round, symmetrical, and reactive to light, trachea midline, no thyromegaly Chest/Pulm: No respiratory distress, symmetrical chest expansion, scattered rhonchi and wheezing throughout Cardiac: RRR, no murmurs noted Abdomen: Negative for ascites and bruising, normoactive bowel sounds, soft, non-tender to palpation throughout Musculoskeletal: Symmetrical and without signs of acute trauma, upper and lower extremities with full ROM, no atrophy, spasticity, or flaccidity Extremities: Radial, dorsalis pedis, and posterior tibial pulses are intact and symmetrical, trace pitting edema noted in the BL LE's Skin: Warm, dry, no rashes , lesions, or scars noted Neuro: Very fatigued but wakes to sternal rub, when awake the patient is Alert and oriented to person, place, month, year, and president, no focal defects, CN II-XII tested and intact, patient has involuntary extremity movements which are at baseline per his Psych: very fatigued, calm and cooperative when awake Results & Data Results & Data ([facility]) Vital Signs (Past 12 Hours) Vital Signs Pulse Pulse Resp BP Pulse Ox O2 Del Method O2 Flow Rate 06/17/22 18:05 87 16 97 BiPAP 06/17/22 17:24 89 14 95 06/17/22 16:45 101 H 15 107/78 96 Nasal Cannula 5 06/17/22 16:40 98 H 14 96 Nasal Cannula 4 06/17/22 16:34 100 H FiO2 06/17/22 18:05 50 06/17/22 17:24 50 06/17/22 16:45 06/17/22 16:40 06/17/22 16:34 Laboratory Results Abnormal lab results 06/17/22 06/17/22 06/17/22 Range/Units 16:36 16:38 16:55 RBC 4.36 L (4.70-6.10) M/uL MCV 100.7 H (80.0-100.0) fL RDW Std Deviation 56.1 H (36.4-46.3) fL RDW Coeff of Netta 15.0 H (11.5-14.5) % MPV 9.3 L (9.4-12.4) fL Neut # (Auto) 6.90 H (1.40-6.50) K/uL Lymph # (Auto) 0.88 L (1.2-3.4) K/uL Yell # (Auto) 0.74 H (0.11-0.59) K/uL VBG pH 7.26 L (7.36-7.41) VBG pCO2 74 H (38-50) mmHg Carbon Dioxide 36 H (21-32) mmol/L Anion Gap 0 L (3-11) BUN 24 H (6-23) mg/dl BUN/Creatinine Ratio 23.3 H (10-20) Glucose 108 H (70-99(Fasting)) mg/dl Diagnostic Findings Chest X-Ray 06/17/22 16:32 XR chest 1V portable CLINICAL HISTORY: Chest pain, nonspecific COMPARISON STUDY: Chest radiograph June 10, [address] June 11, 2022. FINDINGS: Elevation of the right hemidiaphragm is unchanged. There is no pneumothorax or pleural effusion. Cardiomediastinal silhouette is stable. There is pulmonary vascular congestion. No consolidation is identified to suggest pneumonia. IMPRESSION: 1. Stable elevation of the right hemidiaphragm. 2. Cardiomegaly with pulmonary vascular congestion. ACT 112: Negative or not required by law. Electronically signed by: Teo Paulino M.D. 06/17/2022 5:[address] 06/17/22 16:41 CT OF THE HEAD WITHOUT CONTRAST CLINICAL HISTORY: Headache, episode of lethargy COMPARISON STUDY: MRI of the brain January 12, [address] June 11, 2022. CT DOSE: 3536.33 mGy.cm TECHNIQUE: Helical axial images of the head were obtained without IV contrast. Automated exposure control was utilized for the study. A dose lowering technique was utilized adhering to the principles of ALARA. FINDINGS: This study is mildly compromised by motion artifact. No acute intracranial hemorrhage, midline shift or mass effect is present. The ventricular system is stable. White matter hypodensity suggests small vessel disease. The basal cisterns are patent. No extra-axial collections are present. There are no findings to suggest acute dural sinus thrombosis or acute territorial infarct. No significant calvarial abnormalities are present. Vis ualized portions of the sinuses and mastoid air cells are clear. IMPRESSION: No acute intracranial findings. Exam mildly compromised by motion artifact. ACT 112: Negative or not required by law. Electronically signed by: Teo Paulino M.D. 06/17/2022 5:59 PM ECG Additional Comments: Normal sinus rhythm Normal ECG When compared with ECG of 10-JUN-2022 22:24, No significant change was found Code Status & VTE Plan Code Status Full code Supervising Physician Co-Signing Physician Notes I personally saw and examined the patient. I verified all patiño points and agree with Monster Bennett PA-C with the following exceptions and/or additions: 71 year old male presents to the ER with altered mental state. No change in opiate use recently. Currently he feels back to his baseline and asking to restart his Fentanyl patch due to his chronic pain. O/E A&Ox3, HS RRR, no murmurs, Chest CTAB, no wheezing, Abdo SNT A/P Altered mental state - suspect due to hypercapnia. Continue to use BiPAP overnight and reduce O2 aim to 88-92%. Appears mostly resolved at this point and will resume his fentanyl which he reports hasn't recently been changed. No acute COPD exacerbation suspected will stop further steroids. PG Care Time/CCT Total # of Minutes Spent Total Time Spent with Patient: Total time spent is greater than 50% in coordination of care (as documented) at patient's floor/unit and/or counseling patient: Coding [place] [address] INT INP/OBS CARE 3/75MIN Patient Type Established Medical Decision Making High Complexity Diagnoses AMS (altered mental status) R41.82 Hypercarbia R06.89 Acute hypercapnic respiratory failure J96.02 SVT (supraventricular tachycardia) I47.1 RLS (restless legs syndrome) G25.81 Severe obstructive sleep apnea G47.33 GERD (gastroesophageal reflux disease) K21.9 Hypertension I10 Hypertension type: essential hypertension Chronic pain G89.29 (8) Hypertension Hypertension type: essential hypertension Qualified Code(s): I10 - Essential (primary) hypertension
[2022-06-17 19:30] LABS: HCO3 VBG 37 mmol/L; Oxygen Saturation VBG < 60.0 %; PCO2 VBG 83 mmHg (38-50); PO2 VBG 36 mmHg; pH VBG 7.26 (7.36-7.41)
[2022-06-17] MEDS ORDERED: ONDANSETRON 4 MG OD TAB PO PRN (19:57)
[2022-06-17] MEDS ORDERED: DICYCLOMINE HCL 10 MG CAP PO PRN (19:57)
[2022-06-17] MEDS ORDERED: ENOXAPARIN INJ 40 MG/0.4 ML SYR SQ SCH (20:00)
[2022-06-17 20:23] LABS: Base Excess ABG 4.9 mEq/L (-9-1.8); HCO3 ABG 33 mmol/L (19-24); Oxygen Saturation ABG 98.8 % (90-95); PCO2 ABG 62 mmHg (35-46); PO2 ABG 97 mmHg (80-95); pH ABG 7.33 (7.35-7.45)
[2022-06-17 20:25] LABS: Allen Test POS (Pos)
[2022-06-17] MEDS ORDERED: PRAVASTATIN SOD 20 MG TAB PO SCH (21:00)
[2022-06-17] MEDS ORDERED: ALFUZOSIN HCL 10 MG TAB PO SCH (21:00)
[2022-06-17] MEDS ORDERED: FAMOTIDINE 20 MG TAB PO SCH (21:00)
[2022-06-17] MEDS ORDERED: FOLIC ACID 1 MG TAB PO SCH (21:00)
[2022-06-17] MEDS ORDERED: PRAMIPEXOLE DIHYDROCHLO 0.5 MG TAB PO SCH (21:00)
[2022-06-17] MEDS ORDERED: PANTOprazole 40 MG TAB PO SCH (21:00)
[2022-06-17] MEDS ORDERED: ASPIRIN 81 MG ECTAB PO SCH (21:00)
[2022-06-17 21:24] LABS: Amphetamines+Metham, Urine Neg (Neg); Barbiturates, Urine Neg (Neg); Benzodiazepine, Urine Neg (Neg); Cocaine, Urine Neg (Neg); MDMA (Ecstacy), Urine Neg (Neg); Methadone, Urine Neg (Neg); Opiate, Urine Neg (Neg); Phencyclidine, Urine Neg (Neg)
[2022-06-17] MEDS ORDERED: fentaNYL 100 MCG/HR TDSY TD SCH (21:30)
[2022-06-17] MEDS: GABAPENTIN 300 MG CAP PO SCH (21:31)
[2022-06-17] MEDS: METOPROLOL TARTRATE 25 MG TAB PO SCH (21:37)
[2022-06-18] MEDS: ALBUT/IPRATROP 3MG/0.5MG NEB 3 ML VIAL NEB SCH ×2 (07:13→11:00)
[2022-06-18 07:31] LABS: Hemoglobin 13.2 g/dl (14.0-18.0); Immature Granulocytes # (auto) 0.09 K/uL (0.01-0.20); Lymphocytes % (auto) 7.8 %; Mean Corpuscular Hemoglobin 32.4 pg (25.0-34.0); Mean Corpuscular Hgb Conc 32.2 g/dL (32.0-36.0); Mean Corpuscular Volume 100.7 fL (80.0-100.0); Mean Platelet Volume 9.4 fL (9.4-12.4); Monocytes # (auto) 0.11 K/uL (0.11-0.59); Monocytes % (auto) 1.2 %; Neutrophils # (auto) 8.12 K/uL (1.40-6.50); Platelet Count 226 K/uL (130-400); RDW Coefficient of Variation 14.8 % (11.5-14.5); RDW Standard Deviation 55.1 fL (36.4-46.3); Red Blood Count 4.07 M/uL (4.70-6.10); White Blood Count 9.02 K/ul (4.8-10.8)
[2022-06-18 07:36] LABS: Appearance Urine Clear (Clear); Bacteria Urine Automated Negative (Negative); Bilirubin Urine Negative (Negative); Blood Urine Negative (Negative); Cast Urine Automated 0 /lpf (0-5); Color Urine Yellow; Epithelial Cell Urine Auto 0-5 /lpf (0-5); Glucose Urine UA Trace (Negative); Ketones Urine Negative (Negative); Leukocyte Esterase Urine Negative (Negative); Nitrite Urine Negative (Negative); Protein Urine Trace (Negative); RBC Urine Automated 0-4 /hpf (0-4); Specific Gravity Urine 1.027 (1.000-1.030); Urobilinogen Urine Negative (Negative); pH Urine 5.5 (4.5-7.5)
[2022-06-18 07:50] LABS: Albumin Globulin Ratio 1.5 (0.9-2); Bilirubin,Total 0.9 mg/dl (0.2-1.0); Calcium 8.8 mg/dl (8.5-10.1); Creatinine Clr Calc Pharmacy 77.1 ml/min; Est GFR (Non-African American) 75.9 ml/min; Globulin 2.7 gm/dl (2.5-4.0); Potassium 4.9 mmol/L (3.5-5.1); Total Protein 6.7 gm/dl (6.0-8.3)
[2022-06-18] MEDS: CHECK fentaNYL PATCH PLACEMENT SCH ×2 (08:34)
[2022-06-18] MEDS: METOPROLOL TARTRATE 25 MG TAB PO SCH (08:34)
[2022-06-18] MEDS: GABAPENTIN 300 MG CAP PO SCH (08:34)
--- NOTE | 2022-06-18 10:44 | Electrocardiogram Report ---
Test Reason : Blood Pressure : / mmHG Vent. Rate : 097 BPM Atrial Rate : 097 BPM P-R Int : 192 ms QRS Dur : 092 ms QT Int : 348 ms P-R-T Axes : 044 032 007 degrees QTc Int : 441 ms Normal sinus rhythm Normal ECG When compared with ECG of 10-JUN-2022 22:24, No significant change was found Confirmed by Dave Lay ([id number]) on 06/18/2022 10:44:16 AM Referred By: REFERRED SELF Confirmed By:Dave Lay
[2022-06-18 11:46] LABS: Base Excess VBG 4.1 mEq/L; HCO3 VBG 32 mmol/L; Oxygen Saturation VBG 65.8 %; PCO2 VBG 64 mmHg (38-50); PO2 VBG 39 mmHg; pH VBG 7.31 (7.36-7.41)
--- NOTE | 2022-06-18 12:34 | Discharge Summary ---
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 In the ED the patient was found to be afebrile, hemodynamically stable, and stable on his baseline O2. Labs were remarkable for a WBC WNL, stable Hgb and platelets, MCV of 100.7, VBG showing a pH of 7.26, pCO2 of 74, and pO2 of 49, stable Cr at 1.03, stable electrolytes, AG of ) with bicarb of 36, LFT's WNL, initial high sensitivity trop of 10.9, negative alcohol level, and covid [address] of the head was read as "No acute intracranial findings. Exam mildly compromised by motion artifact.". Chest xray was read as "1. Stable elevation of the right hemidiaphragm. 2. Cardiomegaly with pulmonary vascular congestion.". Prior to admission the patient was placed on Bipap, and given 125 mg IV methylprednisolone and a DuoNeb treatment. Per chart review, the patient was recently admitted to [facility] from 06/11/22-06/12/22 for acute on chronic hypoxemic respiratory failure with hypoxemia and hypercapnia, appendicitis, and WANG. The patient was evaluated by Pulmonology who believed his acute on chronic respiratory failure to be due to hypercapnia from his chronic respiratory failure. His respiratory status improved with initial Bipap treatment and adequate use of his HS CPAP. He was found to have a dilated appendix on CT while in the ED and was evaluated by General Surgery. The patient's appendiceal inflammation was previously noted on his prior admission to [facility] from 05/31/22-06/03/22 due to SVT and possible shu endicitis. At that time he was evaluated by general surgery and found to be asymptomatic and stable. They recommended conservative treatment with a 10 day course of Ciprofloxacin and Flagyl. The patient was again asymptomatic and due to his unstable respiratory status at the time of admission he was treated conservatively with Zosyn. His WANG was resolved with IV fluids and his Lisinopril was discontinued on discharge. At the time of the exam the patient was sleeping with is bipap mask on and his sitting bedside, the majority of the history was obtained from his due to his current fatigue and mental status. She states that since his last discharge on 06/12 she has noticed a slow progression of fatigue and confusion like his previous episodes of of hypercapnia. She states that [facility] discussed possibly decreasing he dose of his fentanyl patch as it may be causing him to be fatigue. Today, the patient took fell asleep in his recliner earlier in the afternoon and did not have his CPAP or oxygen per his . At approximately 2:30 pm his tried to wake him but could not. She called EMS and her son who came over and also had some trouble waking him. They were finally able to wake him and he was fatigued by was answering questions appropriately. She confirms that he has been wearing his CPAP machine at night but does not during the day if he falls asleep. She denies the patient having recent fever, chills, changes in vision, hearing, taste, and smell, cough, chest pain, abdominal pain, dysuria, hematuria, and recent trauma. I was able to wake the patient with a sternal rub. Once awake he was able to answer questions appropriately. He currently has a headache and has pain at the site where the ED Physician and myself sternal rubbed him. He denies all other complaints at this time. I confirmed his medication list with is , who confirms that he completed his courses of Flagyl and Ciprofloxacin. The patient is a Full Code and his would make medical decisions for him if he could not make them himself. His added that they are in the process of getting a Bipap machine which Dr. King has been coordinating. Please refer to Dr. Oliveros's attestation for any changes to the treatment plan Admission Exam Per Admitting Provider General:In no acute distress, very fatigued, stated age, chronically ill- appearing HEENT:Normocephalic, atraumatic, patient currently with Bipap mask in place but it appears to not have an adequate seal, no scleral icterus, pupils around round, symmetrical, and reactive to light, trachea midline, no thyromegaly Chest/Pulm:No respiratory distress, symmetrical chest expansion, scattered rhonchi and wheezing throughout Cardiac:RRR, no murmurs noted Abdomen:Negative for ascites and bruising, normoactive bowel sounds, soft, non-tender to palpation throughout Musculoskeletal:Symmetrical and without signs of acute trauma, upper and lower extremities with full ROM, no atrophy, spasticity, or flaccidity Extremities:Radial, dorsalis pedis, and posterior tibial pulses are intact and symmetrical, trace pitting edema noted in the BL LE's Skin:Warm, dry, no rashes , lesions, or scars noted Neuro:Very fatigued but wakes to sternal rub, when awake the patient is Alert and oriented to person, place, month, year, and president, no focal defects, CN II-XII tested and intact,patient has involuntary extremity movements which are at baseline per his Psych:very fatigued, calm and cooperative when awake Principal Diagnosis AMS secondary to hypercapnia due to not wearing his CPAP while sleeping during the day Discharge Exam Constitutional well nourished, + disheveled and comfortable; not in distress ENMT external ear and nose normal, oropharynx normal Neck trachea midline, no thyromegaly Respiratory normal respiratory effort and able to speak in complete sentences; no respira tory distress, no labored breathing and does not use accessory muscles Auscultation: lungs clear to auscultation bilaterally Cardiovascular RRR, no murmur, no edema Skin no rashes, warm and dry Neurologic PERRL, EOMI, accommodation nl, no face palsy, no dysarthria Psychiatric A+Ox3, euthymic affect mildly irritable and states he does not wish to stay in the hospital Discharge Data Allergies Allergy/AdvReac Type Severity Reaction Status Date / Time bee venom protein (honey bee) Allergy Intermediate EXCESSIVE Verified 06/17/22 19:08 SWELLING AT SITE sulfamethoxazole Allergy Intermediate TONGUE Verified 06/17/22 19:08 SWELLS, WHITE BLISTERS IN MOUTH. trimethoprim Allergy Intermediate TONGUE Verified 06/17/22 19:08 SWELLS, WHITE BLISTERS IN MOUTH. adhesive Allergy Mild SKIN Verified 06/17/22 19:08 IRRITATION morphine AdvReac Intermediate PROJECTILE Verified 06/17/22 19:08 VOMITING Consultations 06/17/22 18:21 ED Decision to Admit Stat Ordered Studies 06/17/22 16:41 CT head/brain wo con Stat Hospital Course (1) AMS (altered mental status): -Admit to the PCU -The patient is currently afebrile, hemodynamically stable, and stable on nasal cannula 3L/min -At this time the patient's AMS and acute respiratory failure were most likely due to hypercapnia as a result of not using CPAP while sleeping during the day -VBG is currently showing a pH of 7.31, pCO2 of 64 and pO2 of 39 -CT of the head was negative for acute findings, no leukocytosis or consolidations on CXR to suggest acute infection -Patient is alert and oriented x3 and irritable and asking to be discharged home -S/P 125 mg IV methylprednisolone and a DuoNeb treatment, will hold additional steroids at this time -Instructed the patient's that the patient needs to wear his Cpap machine if he sleeps during the day to prevent recurrent episodes Also reiterated this with patient and urged that if his is not home and he is going to take a nap to put his CPAP on (2) Hypercarbia: -See AMS above (3) Acute hypercapnic respiratory failure: -See AMS above (4) SVT (supraventricular tachycardia): -Recently diagnosed during his admission at the beginning of the month -Currently stable, continue metoprolol 25mg BID -Patient states he has an appointment with cardiology as follow up and he is aware at some point he will need stress test (5) RLS (restless legs syndrome): -Continue gabapentin 300mg TID (6) Severe obstructive sleep apnea: -HS CPAP and also with taking naps during the day -Has order for BIPAP for home use and currently working on getting a BIPAP for home (7) GERD (gastroesophageal reflux disease): -Continue omeprazole and famotidine (8) Hypertension: -Stable 127/82 -Continue metoprolol -Lisinopril was discontinued after last admission due to WANG -Renal function is currently back to baseline could consider restarting in the future if needed but at this time/admission BP has been stable (9) Chronic pain: -Patient is typically on a 100 mcg Fentanyl patch q48h, gabapentin 300 mg TID, 10 mg flexeril HS, -Fentanyl patch was removed in the ED -Fentanyl patch reaplied today -Patient's states that they are considering decreasing the dose of his fentanyl patch due to sedation/fatigue Patient states he has an appointment with [facility] tomorrow and will discuss decreasing the dose -Continue gabapentin Plan The patient was discussed with Dr. Aldrich Total Time Total Time Spent Total Time Spent (In Minutes): 35 Discharge Plan Discharge Items Patient Disposition: Home - Self-Care Reason For Visit: AMS Discharge Diagnosis: AMS and hypercapnia as a result of not using CPAP while sleeping during the day Condition on Discharge: Good Activity: Resume your previous activity Non-emergency contact: Primary Care Provider Call non-emergency contact if: you have any medication questions and your symptoms worsen Follow-up/Referrals: Francis Rubin, [employer] [Primary Care Provider] - Diet: Heart Healthy Addtl Attending Provider Instructions: You were admitted with altered mental status and not being able to be aroused after a daytime nap. You were found to have high carbon dioxide levels in your system and this was caused by not wearing your CPAP machine while sleeping. You were placed on BIPAP, your Fentanyl patch was removed and you recovered well. Y ou were feeling well by the next morning and your venous blood gas results were improved. You stated that you had an appt in [facility] at Pain management tomorrow and you asked to be discharged to home today in order to get to your appt. You stated that they are considering to decrease your Fentanyl patch dose, which may help with your respiratory status. You have home oxygen as well as CPAP and you are in the process of obtaining a BIPAP machine. You were evaluated by the pulmonology service during your last admission and the cardiology service the previous admission prior to that. You stated that you have a cardiology follow up appt in the next week or so. Pending Studies at Discharge: No Stand-Alone Forms: My [facility] Medications and DC Order Prescriptions: Continued alfuzosin 10 mg tablet extended release 24 hr 10 mg PO HS Rx Instructions: administer after the same meal each day testosterone [AndroGel] 20.25 mg/1.25 gram (1.62 %) gel in metered-dose pump 2 pump topical HS Qty: 75 5RF Rx Instructions: apply 1 pump amount over max area of each upper arm and shoulder PDMP queried, ok to fill - TR pramipexole 0.5 mg tablet 0.5 mg PO HS cyclobenzaprine 10 mg tablet 10 mg PO HS loratadine [Claritin] 10 mg tablet 10 mg PO DAILY PRN (Reason: Congestion) folic acid 1 mg tablet 1 mg PO HS ascorbic acid (vitamin C) 500 mg tablet 250 mg PO HS naloxegol 25 mg tablet 25 mg PO QAM Rx Instructions: must be taken on empty stomach; no food 1 hr after or 2-3 hrs before dose gabapentin 300 mg capsule 300 mg PO TID Qty: 90 3RF Rx Instructions: 05/25/22 : BEGIN THIS NEW MED WITH SMALLER DOSE, THEN TRANSITION TO 300MG THREE TIMES DAILY ON 06/11/22. cholecalciferol (vitamin D3) 25 mcg (1,000 unit) capsule 2,000 units PO HS famotidine 20 mg tablet 20 mg PO HS omeprazole 20 mg capsule,delayed release(DR/EC) 20 mg PO HS dicyclomine 10 mg capsule 10 mg PO BID PRN (Reason: ABD PAIN) fentanyl 100 mcg/hr patch 72 hour 100 mcg transdermal Q48H aspirin [Alice Low Dose Aspirin] 81 mg tablet,delayed release (DR/EC) 81 mg PO HS pravastatin 40 mg Tablet 20 mg PO HS metoprolol tartrate 25 mg tablet 25 mg PO BID Qty: 60 0RF No Action ondansetron 4 mg tablet,disintegrating 4 mg PO Q8H PRN (Reason: Nausea And Vomiting) Discharge Orders: Discharge Order (Routine); Ordered 06/18/22 Ordered By: Emiliana Loco Admission Data Admit Date/Time: 06/17/22 18:21 Attending Provider: Dyllan Aldrich Admit Provider: Arnold Oliveros Primary Care Provider: Francis Rubin Other Providers: Arnold Oliveros Other Interventions: Discharge Summary Assessment (RN) Last Done: 06/18/22 12:10 Coding Level of Care Code HOSP INP/OBS DISCH >30 MIN Diagnoses AMS (altered mental status) R41.82 Hypercarbia R06.89 Acute hypercapnic respiratory failure J96.02 SVT (supraventricular tachycardia) I47.1 RLS (restless legs syndrome) G25.81 Severe obstructive sleep apnea G47.33 GERD (gastroesophageal reflux disease) K21.9 Hypertension I10 Hypertension type: essential hypertension Chronic pain G89.29
== END 2022-06-18 14:49 | disposition home or self-care (01) | DRG 189 ==
LOC: ED 16:19 → SUATTDRO 18:21 → 2S 18:21

== ENCOUNTER 2022-08-28 00:59 | Inpatient (IN) ==
[2022-08-28] MEDS ORDERED: SODIUM CHLORIDE 0.9% 1000ML 1,000 ML IV ONE (01:40)
--- NOTE | 2022-08-28 01:52 | Emergency Department Note ---
Impression & Plan Accidental overdose, Acute opioid withdrawal Admit to the [facility]ist ED Provider Note NAME: TIM JAVIER AGE: 71 SEX: M ARRIVES VIA: Walk-In INFORMANT: Patient and his ED PROVIDER(S): Keyanna Gallagher DO CHIEF COMPLAINT: Accidental overdose PLAN: Disposition: Admit to the [facility] Hospitalist Condition: Guarded MEDICAL DECISION MAKING: This is a 71-year-old male patient who accidentally took 28 naloxegel pills when he was supposed to take a whole bottle of medication for an endocrinology laboratory test in the morning. The patient wears a 75 mcg fentanyl patch d aily. Laboratory studies were essentially normal except for mildly low phosphorus at 2.4. There were no significant signs of dehydration. The patient began to have crampy abdominal pain and then explosive diarrhea while here in the emergency department. He then went into severe opioid withdrawal. He was given multiple doses of IV opioids here in the ER including IV fentanyl and IV Dilaudid. The patient was having extreme anxiety and difficulty controlling involuntary movements of his body. I did try giving him some IV benzodiazepines as well. Triage Nursing notes reviewed and agree with them. Additional history obtained from his is at the bedside Vital Signs: reviewed and unremarkable initially Differential diagnosis: Accidental overdose, intentional overdose, dehydration, electrolyte abnormality from diarrhea ER treatment provided: Cardiac monitoring Twelve-lead EKG IV normal saline bolus IV fentanyl IV Zofran IV fentanyl IV Dilaudid IV Dilaudid Diagnostics independently interpreted by me: ECG: Normal sinus rhythm at a rate of 78 with first-degree AV block. There is no ST segment elevation or signs of ischemia. There is no ectopy. QTc was 435 ms. Cardiac Monitoring: Normal sinus rhythm at a rate of 80 Laboratory studies: See below Consultation(s): [facility] HPI: 71/M arrives for evaluation of accidental overdose. The patient accidentally took 28 naloxegol pills when he was supposed to take a whole bottle of medication for an endocrinology laboratory test in the morning. PAST MEDICAL HISTORY:See Below PAST SURGICAL HISTORY:See Below FAMILY HISTORY:See Below SOCIAL HISTORY:See Below HOME MEDICATIONS:See list ALLERGIES:See list VITALS:See Below PHYSICAL EXAMINATION: HEENT: Head - normocephalic and atraumatic Pupils are equal, round, and reactive to light. Extraocular eye muscles are intact, and sclera are anicteric. Nose - moist nasal mucosa without discharge. Mouth - moist buccal mucosa. Oropharynx is nonerythematous and there is no tonsillar exudate or edema noted. Neck: Supple; no cervical lymphadenopathy Heart: Regular rate and rhythm. There is a normal S1 and S2 with no murmurs, clicks, or gallops appreciated. Lungs: Clear to auscultation bilaterally with no wheezes, rales, or rhonchi. Abdomen: Soft, completely nontender, nondistended, with good bowel sounds. There are no palpable pulsatile masses or hepatosplenomegaly. There is no guarding, rigidity, or rebound noted. Extremities: No evidence of cyanosis, clubbing, or edema. There are easily palpable peripheral pulses. Skin: warm and dry with good turgor and no rashes. ED COURSE: Times/Reassessments: 125: Patient was evaluated in A-3. A complete history and physical was performed. An order was placed for continuous cardiac monitoring. The patient was in a normal sinus rhythm at a rate of 80. A twelve-lead EKG was obtained as described above. An IV lock was initiated and labs were drawn as above. Initially, the patient had no symptoms. However slowly he developed crampy abdominal pain and diarrhea. He then began to develop shaking and involuntary movements and twitching. He then was in full-blown opioid withdrawal. He was given multiple doses of IV opioids, IV Zofran and then IV benzodiazepines. I discussed the case with the [facility] Hospitalist and they will evaluate for further management. Keyanna Gallagher DO Past Med/Surg History Medical History BPH (benign prostatic hyperplasia) Depression GERD (gastroesophageal reflux disease) History of acute renal failure Non-ST elevation DC (NSTEMI) Pneumonia Prostatitis Recurrent pneumonia RLS (restless legs syndrome) Surgical History History of ankle surgery Britton reconstruction-right side History of carpal tunnel release History of mandibular surgery History of surgery mass removed from left side of clavicle Status post trigger finger release Family History Mother Cancer Hypertension Myasthenia gravis Breast cancer Son Environmental allergies Asthma Sister Gallbladder disease Father Alzheimer disease Grandmother (Maternal) Colorectal cancer Family/Other Myocardial infarction Other No family history of bleeding disorder Denies family history of Ovarian cancer Prostate cancer Social History Smoking Status: Never smoker Tobacco Type: Cigarettes Second Hand Exposure: No; Do You Dip or Chew Tobacco: No; Hx Alcohol Use: No Hx Substance Use: No (chronic fent patch) Preferred Language: Turkmen Communication Ability: Unable Managing Director Required: No Beliefs That Will Affect Care: None marital status: Current Living Situation: Spouse current occupational status: retired Other Information That Helps Us Care for You: No Feels Safe at Home: Yes Safety Concerns: Feels Safe At This Time Childhood Exposure to Second-Hand Smoke: Yes Dental Care, Regularly: No Physical Activity Frequency: Does not Exercise Seatbelt Use: never Sunscreen Use: Yes Assistive Devices: Cane, CPAP, Oxygen - Continuous, Scooter/Electric Scooter and Walker Assistive Devices Comment: o2 prn during day if SOB Allergies Allergies Allergy/AdvReac Type Severity Reaction Status Date / Time bee venom protein (honey bee) Allergy Intermediate EXCESSIVE Verified 08/10/22 13:04 SWELLING AT SITE sulfamethoxazole Allergy Intermediate TONGUE Verified 08/10/22 13:04 SWELLS, WHITE BLISTERS IN MOUTH. trimethoprim Allergy Intermediate TONGUE Verified 08/10/22 13:04 SWELLS, WHITE BLISTERS IN MOUTH. adhesive Allergy Mild SKIN Verified 08/10/22 13:04 IRRITATION morphine AdvReac Intermediate PROJECTILE Verified 08/10/22 13:04 VOMITING Home Meds Home Medications Medication Instructions Recorded Confirmed cyclobenzaprine 10 mg tablet 10 mg PO HS 02/28/19 08/28/22 omeprazole 20 mg capsule,delayed 20 mg PO HS 02/28/19 08/28/22 release ondansetron 4 mg disintegrating 4 mg PO Q8H PRN Nausea And Vomiting 04/10/19 08/28/22 tablet cholecalciferol (vitamin D3) 25 2,000 units PO HS 06/10/19 08/28/22 mcg (1,000 unit) capsule dicyclomine 10 mg capsule 10 mg PO BID PRN ABD PAIN 02/12/20 08/28/22 pravastatin 40 mg tablet 20 mg PO HS 11/04/21 08/28/22 aspirin 81 mg tablet,delayed 81 mg PO HS 02/22/22 08/28/22 release (Alice Low Dose Aspirin) fentanyl 100 mcg/hr transdermal 100 mcg transdermal Q48H 02/22/22 08/28/22 patch mecobalamin (vitamin B12) 1,000 1,000 mcg PO DAILY 07/26/22 08/28/22 mcg chewable tablet Previous Rx's Medication Instructions Recorded metoprolol tartrate 25 mg tablet 25 mg PO BID #60 tabs 07/12/22 duloxetine 30 mg capsule,delayed 30 mg PO DAILY #30 caps 07/24/22 release (Cymbalta) pramipexole 0.5 mg tablet 0.5 mg PO HS #20 tabs 07/24/22 metyrapone 250 mg capsule 250 mg PO .COMPLEX #12 caps 07/28/22 Results & Data (ED) Vital Signs Vital Signs - 24 hr 08/28/22 01:15 08/28/22 01:28 08/28/22 01:29 Temperature 37.0 C Temperature Source Temporal Artery Scan Pulse Rate 98 H 84 86 Respiratory Rate 18 16 Respiratory Effort / Characteristics Non-Labored Respiratory Depth Normal Blood Pressure 149/88 H 142/85 H Blood Pressure Mean 108 104 Pulse Oximetry 94 92 Oxygen Delivery Method Room Air Room Air Sepsis Recent Fever Within 48 Hours No Sepsis New/Unexplained Change in Mental Status N/A Sepsis Action Taken by Nursing No Action Required Laboratory Data 08/28/22 01:38 08/28/22 01:38 Lab Results 08/28/22 08/28/22 08/28/22 Range/Units 01:38 01:38 02:22 WBC 8.43 (4.8-10.8) K/ul RBC 5.25 (4.70-6.10) M/uL Hgb 16.2 (14.0-18.0) g/dl Hct 47.5 (42.0-52.0) % MCV 90.5 (80.0-100.0) fL MCH 30.9 (25.0-34.0) pg MCHC 34.1 (32.0-36.0) g/dL RDW Std Deviation 41.0 (36.4-46.3) fL RDW Coeff of Netta 12.5 (11.5-14.5) % Plt Count 249 (130-400) K/uL MPV 9.5 (9.4-12.4) fL Immature Gran % (Auto) 0.5 % Neut % (Auto) 52.7 % Lymph % (Auto) 30.1 % Preston % (Auto) 12.3 % Eos % (Auto) 3.8 % Baso % (Auto) 0.6 % Neut # (Auto) 4.44 (1.40-6.50) K/uL Lymph # (Auto) 2.54 (1.2-3.4) K/uL Preston # (Auto) 1.04 H (0.11-0.59) K/uL Eos # (Auto) 0.32 (0-0.50) K/uL Baso # (Auto) 0.05 (0-0.2) K/uL Immature Gran # (Auto) 0.04 (0.01-0.20) K/uL Sodium 137 (136-145) mmol/L Potassium 4.0 (3.5-5.1) mmol/L Chloride 100 (98-107) mmol/L Carbon Dioxide 32 (21-32) mmol/L Anion Gap 5 (3-11) BUN 17 (6-23) mg/dl Creatinine 0.96 (0.6-1.4) mg/dl Est Cr Clr Drug Dosing 79.6 ml/min Est GFR ( Amer) 92.4 ml/min Est GFR (Non-Af Amer) 79.8 ml/min BUN/Creatinine Ratio 17.7 (10-20) Glucose 83 (70-99(Fasting)) mg/dl Calcium 8.9 (8.6-10.3) mg/dl Phosphorus 2.4 L (2.5-4.9) mg/dl Magnesium 1.7 (1.7-2.4) mg/dl Total Bilirubin 0.7 (0.2-1.0) mg/dl AST 19 (13-39) U/L ALT 14 (7-52) U/L Alkaline Phosphatase 47 (34-104) U/L Total Protein 7.1 (6.0-8.3) gm/dl Albumin 4.1 (3.4-5.0) gm/dl Globulin 3.0 (2.5-4.0) gm/dl Albumin/Globulin Ratio 1.4 (0.9-2) SARS-CoV-2, RNA, NAAT NEGATIVE (NEGATIVE) Administered Medications Aspirin (Aspirin 81 Mg Ectab) 81 mg PO HS BLANCA Stop: 09/27/22 20:59 Last Admin: 08/28/22 21:17 Dose: 81 mg Documented By: TANIYA Cyclobenzaprine HCl (Cyclobenzaprine Hcl 10 Mg Tab) 10 mg PO HS BLANCA Stop: 09/27/22 20:59 Last Admin: 08/28/22 21:18 Dose: 10 mg Documented By: TANIYA Dicyclomine HCl (Dicyclomine Hcl 10 Mg Cap) 10 mg PO BID PRN PRN Reason: ABD PAIN Stop: 09/27/22 05:49 Last Admin: 08/28/22 07:44 Dose: 10 mg Documented By: BOBY Duloxetine HCl (Duloxetine Hcl 30 Mg Cap) 30 mg PO DAILY BLANCA Stop: 09/27/22 08:59 Last Admin: 08/29/22 08:39 Dose: 30 mg Documented By: Admin: 08/28/22 07:45 Dose: 30 mg Documented By: BOBY Fentanyl (Fentanyl 75 Mcg/Hr Tdsy) 75 mcg TD Q48H BLANCA Stop: 09/11/22 10:29 Last Admin: 08/28/22 11:43 Dose: 75 mcg Documented By: BOBY Hydromorphone HCl (Hydromorphone Inj 2 Mg/Ml Syr/Vial) 2 mg IV Q2H PRN PRN Reason: Pain (6,7,8,9,10) Stop: 09/11/22 05:59 Last Admin: 08/28/22 21:34 Dose: 2 mg Documented By: Admin: 08/28/22 17:13 Dose: 2 mg Documented By: BOBY Hydromorphone HCl (Hydromorphone Inj 1 Mg/Ml Syringe) 1 mg IV Q2H PRN PRN Reason: Pain (1,2,3,4,5) & Pre PT Stop: 09/11/22 06:00 Last Admin: 08/29/22 05:31 Dose: 1 mg Documented By: Admin: 08/28/22 19:46 Dose: 1 mg Documented By: YANIV Lorazepam (Lorazepam 2 Mg/1 Ml Vial) 1 mg IV Q6H PRN PRN Reason: Anxiety/Agitation Stop: 09/27/22 07:41 Last Admin: 08/28/22 20:22 Dose: 1 mg Documented By: Admin: 08/28/22 09:52 Dose: 1 mg Documented By: BOBY Metoprolol Tartrate (Metoprolol Tartrate 25 Mg Tab) 25 mg PO BID BLANCA Stop: 09/27/22 08:59 Last Admin: 08/29/22 08:39 Dose: 25 mg Documented By: Admin: 08/28/22 21:19 Dose: 25 mg Documented By: Admin: 08/28/22 07:45 Dose: 25 mg Documented By: BOBY Townsend (Check Fentanyl Patch Placement) 1 each N/A QS BLANCA Stop: 09/27/22 07:59 Last Admin: 08/29/22 08:38 Dose: 1 each Documented By: Admin: 08/28/22 23:20 Dose: 1 each Documented By: Admin: 08/28/22 15:13 Dose: 1 each Documented By: Admin: 08/28/22 07:39 Dose: 1 each Documented By: BOBY Townsend (Fentanyl Patch Remove & Waste) 1 each N/A Q48H BLANCA Stop: 09/27/22 10:28 Last Admin: 08/28/22 11:44 Dose: Not Given Documented By: BOBY Pantoprazole Sodium (Pantoprazole 40 Mg Tab) 40 mg PO DAILY BLANCA Stop: 09/27/22 08:59 Last Admin: 08/29/22 08:40 Dose: 40 mg Documented By: Admin: 08/28/22 07:45 Dose: 40 mg Documented By: BOBY Pramipexole Dihydrochloride (Pramipexole Dihydrochlo 0.5 Mg Tab) 0.5 mg PO HS BLANCA Stop: 09/27/22 20:59 Last Admin: 08/28/22 21:19 Dose: 0.5 mg Documented By: TANIYA Pravastatin Sodium (Pravastatin Sod 20 Mg Tab) 20 mg PO [facility] Stop: 09/27/22 20:59 Last Admin: 08/28/22 21:19 Dose: 20 mg Documented By: TANIYA Discontinued Medications Fentanyl (Fentanyl 100 Mcg/Hr Tdsy) 100 mcg TD Q48H BLANCA Stop: 09/11/22 06:59 Last Admin: 08/28/22 06:41 Dose: 100 mcg Documented By: YANIV Fentanyl (Fentanyl 75 Mcg/Hr Tdsy) 75 mcg TD Q48H BLANCA Stop: 09/11/22 06:59 Last Admin: 08/28/22 07:33 Dose: 75 mcg Documented By: BOBY Fentanyl Citrate (Fentanyl Citrate Pf 100 Mcg/2 Ml Vial) 100 mcg IV NOW STA Stop: 08/28/22 02:53 Last Admin: 08/28/22 02:55 Dose: 100 mcg Documented By: JONELLE Fentanyl Citrate (Fentanyl Citrate Pf 100 Mcg/2 Ml Vial) 100 mcg IV NOW STA Stop: 08/28/22 03:27 Last Admin: 08/28/22 03:50 Dose: 100 mcg Documented By: KARI Hydromorphone HCl (Hydromorphone Inj 2 Mg/Ml Syr/Vial) Confirm Administered Dose 2 mg .ROUTE .STK-MED ONE Stop: 08/28/22 04:03 Last Increment: 08/28/22 04:20 Dose: 0.5 mg Documented By: KARI Increment: 08/28/22 04:10 Dose: 0.5 mg Documented By: KARI Increment: 08/28/22 04:04 Dose: 1 mg Documented By: KARI Hydromorphone HCl (Hydromorphone Inj 2 Mg/Ml Syr/Vial) 2 mg IV NOW STA Stop: 08/28/22 04:32 Last Admin: 08/28/22 04:35 Dose: 2 mg Documented By: KARI Hydromorphone HCl (Hydromorphone Inj 2 Mg/Ml Syr/Vial) 2 mg IV NOW STA Stop: 08/28/22 04:32 Last Admin: 08/28/22 04:41 Dose: Not Given Documented By: KARI Hydromorphone HCl (Hydromorphone Inj 2 Mg/Ml Syr/Vial) Confirm Administered Dose 2 mg .ROUTE .STK-MED ONE Stop: 08/28/22 04:33 Last Admin: 08/28/22 04:46 Dose: Not Given Documented By: KARI Hydromorphone HCl (Hydromorphone Inj 1 Mg/Ml Syringe) 1 mg IV NOW STA Stop: 08/28/22 05:00 Last Admin: 08/28/22 05:06 Dose: 1 mg Documented By: KARI Hydromorphone HCl (Hydromorphone Inj 0.5 Mg/0.5 Ml Syr) 1 mg IV Q3H PRN PRN Reason: Pain (1,2,3,4,5) & Pre PT Stop: 09/11/22 05:49 Last Admin: 08/28/22 06:05 Dose: 1 mg Documented By: YANIV Hydromorphone HCl (Hydromorphone Inj 2 Mg/Ml Syr/Vial) 2 mg IV Q3H PRN PRN Reason: Pain (6,7,8,9,10) Stop: 09/11/22 05:59 Last Admin: 08/28/22 14:11 Dose: 2 mg Documented By: Admin: 08/28/22 11:02 Dose: 2 mg Documented By: Admin: 08/28/22 07:34 Dose: 2 mg Documented By: BOBY Hydromorphone HCl (Hydromorphone Inj 2 Mg/Ml Syr/Vial) 2 mg IV NOW STA Stop: 08/28/22 06:27 Last Admin: 08/28/22 06:33 Dose: 2 mg Documented By: YANIV Sodium Chloride (Nss 1000ml) 1,000 mls @ 999 mls/hr IV .Q1H1M ONE Stop: 08/28/22 02:40 Last Infusion: 08/28/22 02:47 Dose: 0 mls/hr Documented By: Admin: 08/28/22 01:42 Dose: 999 mls/hr Documented By: JONELLE Lactated Ringer's (Lr) 1,000 mls @ 125 mls/hr IV .Q8H BLANCA Stop: 08/28/22 21:49 Last Infusion: 08/28/22 08:46 Dose: 0 mls/hr Documented By: Admin: 08/28/22 06:18 Dose: 125 mls/hr Documented By: JOHAN Potassium Chloride 20 meq/ (Lactated Ringer's) 1,010 mls @ 125 mls/hr IV .Q8H5M BLANCA Stop: 09/27/22 11:29 Last Infusion: 08/29/22 08:36 Dose: 0 mls/hr Documented By: Admin: 08/29/22 05:50 Dose: 125 mls/hr Documented By: Infusion: 08/29/22 05:22 Dose: 125 mls/hr Documented By: Admin: 08/28/22 21:17 Dose: 125 mls/hr Documented By: Infusion: 08/28/22 20:28 Dose: 125 mls/hr Documented By: Admin: 08/28/22 12:23 Dose: 125 mls/hr Documented By: BOBY Lorazepam (Lorazepam 2 Mg/1 Ml Vial) 2 mg IV NOW STA Stop: 08/28/22 03:58 Last Admin: 08/28/22 04:00 Dose: 2 mg Documented By: KARI Miscellaneous (Fentanyl Patch Remove & Waste) 1 each N/A Q48H BLANCA Stop: 09/27/22 06:59 Last Admin: 08/28/22 06:41 Dose: 1 each Documented By: YANIV Co-signed By: JOHAN Miscellaneous (Fentanyl Patch Remove & Waste) 1 each N/A Q48H BLANCA Stop: 09/27/22 06:58 Last Admin: 08/28/22 10:09 Dose: 1 each Documented By: BOBY Co-signed By: JOHAN(2) Admin: 08/28/22 07:33 Dose: 1 each Documented By: BOBY Co-signed By: FRANK Ondansetron HCl (Ondansetron Inj 2 Mg/Ml 2 Ml Vial) 4 mg IV NOW STA Stop: 08/28/22 02:53 Last Admin: 08/28/22 02:55 Dose: 4 mg Documented By: [facility] Discharge Plan Visit Data Chief Complaint: Overdose (Accidental) Stated Complaint: TOOK WRONG MEDICINE NALOXEGOL X 28(WHOLE BOTTLE) ED Provider: Keyanna Gallagher Discharge Problem: Accidental overdose, Acute opioid withdrawal Patient Disposition: Admitted As Inpatient Discharge Instructions Interventions: ED Discharge Assessment Last Done: 08/28/22 05:29
[2022-08-28 02:02] LABS: Basophils # (auto) 0.05 K/uL (0-0.2); Basophils % (auto) 0.6 %; Eosinophils # (auto) 0.32 K/uL (0-0.50); Eosinophils % (auto) 3.8 %; Hematocrit (blood only) 47.5 % (42.0-52.0); Hemoglobin 16.2 g/dl (14.0-18.0); Immature Granulocytes # (auto) 0.04 K/uL (0.01-0.20); Immature Granulocytes % (auto) 0.5 %; Lymphocytes # (auto) 2.54 K/uL (1.2-3.4); Lymphocytes % (auto) 30.1 %; Mean Corpuscular Hemoglobin 30.9 pg (25.0-34.0); Mean Corpuscular Hgb Conc 34.1 g/dL (32.0-36.0); Mean Corpuscular Volume 90.5 fL (80.0-100.0); Mean Platelet Volume 9.5 fL (9.4-12.4); Monocytes # (auto) 1.04 K/uL (0.11-0.59); Monocytes % (auto) 12.3 %; Neutrophils # (auto) 4.44 K/uL (1.40-6.50); Neutrophils % (auto) 52.7 %; Platelet Count 249 K/uL (130-400); RDW Coefficient of Variation 12.5 % (11.5-14.5); Red Blood Count 5.25 M/uL (4.70-6.10); White Blood Count 8.43 K/ul (4.8-10.8)
[2022-08-28 02:21] LABS: Albumin Globulin Ratio 1.4 (0.9-2); Albumin Level 4.1 gm/dl (3.4-5.0); BUN Creatinine Ratio 17.7 (10-20); Bilirubin,Total 0.7 mg/dl (0.2-1.0); Calcium 8.9 mg/dl (8.6-10.3); Creatinine Clr Calc Pharmacy 79.6 ml/min; Est GFR (African American) 92.4 ml/min; Est GFR (Non-African American) 79.8 ml/min; Magnesium 1.7 mg/dl (1.7-2.4); Phosphorus 2.4 mg/dl (2.5-4.9); Total Protein 7.1 gm/dl (6.0-8.3)
[2022-08-28] MEDS ORDERED: fentaNYL citrate PF 100 MCG/2 ML VIAL IV STA ×2 (02:52→03:26)
[2022-08-28] MEDS ORDERED: ONDANSETRON INJ 2 MG/ML 2 ML VIAL IV STA (02:52)
[2022-08-28] MEDS ORDERED: LORazepam 2 MG/1 ML VIAL IV STA (03:57)
[2022-08-28] MEDS ORDERED: HYDROmorphone INJ 2 MG/ML SYR/VIAL ONE ×2 (04:02→04:32)
[2022-08-28] MEDS ORDERED: HYDROmorphone INJ 2 MG/ML SYR/VIAL IV STA ×3 (04:31→06:26)
--- NOTE | 2022-08-28 04:46 | History & Physical Report ---
Date of Service August 28, 2022 Assessment & Plan (1) Accidental overdose: Plan: 71yo male presenting with accidental overdose of Naloxegol. Patient with severe pain, nausea, diarrhea as well as hyperalgesia and some agitated delirium. Likely secondary to acute opioid withdrawal. Per review of drug information - GI distress, severe abdominal pain and GI perforation is possible as well. Effects of Naloxegol ingestion should only last 6 hours. Time of ingestion 08/28 at 00:00. Symptoms should ideally be resolving presently. Patient has received multiple doses of IV Opioids as well as Ativan for management of acute withdrawal symptoms. -Admit to PCU -Dilaudid PRN - written as 1mg IV q 3 hours as needed for pain 1,2,3,4,5 and 2mg IV q 3 hours as needed for pain 6,7,8,9,10 - adjust as needed -Continue Fentanyl patch -LR at 125mL/hr x 1 liter -Aspiration precautions -Seizure precautions -Supplemental O2 as needed -Continuous pulse oximetry -EtCO2 monitoring (2) BPH (benign prostatic hyperplasia): Plan: Bladder scan as needed (3) Severe obstructive sleep apnea: Plan: CPAP qHS (4) GERD (gastroesophageal reflux disease): Plan: Chronic. Patient is on Omeprazole at home -Protonix 40mg po daily while admitted (5) Hypertension: Plan: Blood pressure elevated in setting of acute distress -Continue metoprolol -Monitor BP -Consider alpha-royal if additional control is needed (6) Depression: Plan: Chronic -Continue Duloxetine F/E/N - LR at 125mL/hr, electrolytes WNL, NPO for now Ppx - Low risk for DVT Code - Full Dispo - Admit to PCU History of Present Illness Chief Complaint: Accidental overdose - acute opioid withdrawal Primary Care Provider: [facility] Basim Alvarez is a 71yo male with history of BPH, Depression, GERD, CHITRA presenting from home with accidental overdose of Naloxogel. Patient was scheduled to have an overnight metapyrone test performed tomorrow per Endocrinology. He was instructed to take a bottle of Metopyrone with a snack or milk prior to his test. Patient accidentally took a bottle of Naloxogel instead - approximately 28 tablets taken at 12:00. His called Poison Control and he was instructed to come to the ER. Patient arrived in the ER around 01:00 then developed severe watery diarrhea as well as intractable pain and sighs/symptoms of acute opioid withdrawal. Of note, patient is on Fentanyl 75mcg patch daily for chronic back pain - is due to place a new patch today. In the ER patient is afebrile, tachycardic, hypertensive, in acute distress. Several episodes of watery diarrhea. Severe pain. Discussion with poison control - Naloxogel overdose can cause abdominal pain, nausea, vomiting, diarrhea, flatulence and headache as well as acute opioid withdrawal. Symptoms are expected to last 6 hours. Supportive care and treatment for opioid withdrawal recommended. ER Course: NSS x 1000mL Fentanyl 100 mcg IV x 3 (300mcg total) Zofran 4mg IV Ativan 2mg IV Dilaudid 2mg + 2mg + 1mg + 1mg + 2mg +2mg (10mg total) Allergies Allergy/AdvReac Type Severity Reaction Status Date / Time bee venom protein (honey bee) Allergy Intermediate EXCESSIVE Verified 08/10/22 13:04 SWELLING AT SITE sulfamethoxazole Allergy Intermediate TONGUE Verified 08/10/22 13:04 SWELLS, WHITE BLISTERS IN MOUTH. trimethoprim Allergy Intermediate TONGUE Verified 08/10/22 13:04 SWELLS, WHITE BLISTERS IN MOUTH. adhesive Allergy Mild SKIN Verified 08/10/22 13:04 IRRITATION morphine AdvReac Intermediate PROJECTILE Verified 08/10/22 13:04 VOMITING Home Medications Medication Instructions Recorded Confirmed Type cyclobenzaprine 10 mg tablet 10 mg PO HS 02/28/19 08/28/22 History omeprazole 20 mg capsule,delayed 20 mg PO HS 02/28/19 08/28/22 History release ondansetron 4 mg disintegrating 4 mg PO Q8H PRN Nausea And Vomiting 04/10/19 08/28/22 History tablet cholecalciferol (vitamin D3) 25 2,000 units PO HS 06/10/19 08/28/22 History mcg (1,000 unit) capsule dicyclomine 10 mg capsule 10 mg PO BID PRN ABD PAIN 02/12/20 08/28/22 History pravastatin 40 mg tablet 20 mg PO HS 11/04/21 08/28/22 History aspirin 81 mg tablet,delayed 81 mg PO HS 02/22/22 08/28/22 History release (Alice Low Dose Aspirin) fentanyl 100 mcg/hr transdermal 100 mcg transdermal Q48H 02/22/22 08/28/22 History patch metoprolol tartrate 25 mg tablet 25 mg PO BID #60 tabs 07/12/22 08/28/22 Rx duloxetine 30 mg capsule,delayed 30 mg PO DAILY #30 caps 07/24/22 08/28/22 Rx release (Cymbalta) pramipexole 0.5 mg tablet 0.5 mg PO HS #20 tabs 07/24/22 08/28/22 Rx mecobalamin (vitamin B12) 1,000 1,000 mcg PO DAILY 07/26/22 08/28/22 History mcg chewable tablet metyrapone 250 mg capsule 250 mg PO .COMPLEX #12 caps 07/28/22 08/28/22 Rx Past Med/Surg History Medical History BPH (benign prostatic hyperplasia) Depression GERD (gastroesophageal reflux disease) History of acute renal failure Non-ST elevation PR (NSTEMI) Pneumonia Prostatitis Recurrent pneumonia RLS (restless legs syndrome) Surgical History History of ankle surgery Britton reconstruction-right side History of carpal tunnel release History of mandibular surgery History of surgery mass removed from left side of clavicle Status post trigger finger release Family History Mother Cancer Hypertension Myasthenia gravis Breast cancer Son Environmental allergies Asthma Sister Gallbladder disease Father Alzheimer disease Grandmother (Maternal) Colorectal cancer Family/Other Myocardial infarction Other No family history of bleeding disorder Denies family history of Ovarian cancer Prostate cancer Social History Smoking Status: Never smoker Tobacco Type: Cigarettes Second Hand Exposure: No; Do You Dip or Chew Tobacco: No; Hx Alcohol Use: No Hx Substance Use: No Preferred Language: Guinean Communication Ability: Effective Advertising Campaign Manager Required: No Beliefs That Will Affect Care: None marital status: Current Living Situation: Spouse current occupational status: retired Feels Safe at Home: Yes Childhood Exposure to Second-Hand Smoke: Yes Dental Care, Regularly: No Physical Activity Frequency: Does not Exercise Seatbelt Use: never Sunscreen Use: Yes Assistive Devices: Cane, CPAP, Denture - Upper, Denture - Lower, Oxygen - at Night and Wheelchair Review of Systems Review of Systems: Unobtainable due to cognitive status Physical Exam Physical Exam: General: patient in distress, writing in pain, able to answer yes or no questions Skin: warm, dry, intact, no rashes or lesions HEENT: MMM, pupils dilated bilaterally, reactive, neck supple Heart: +S1/S2, regular, tachycardic, no m/r/g Lungs: equal air entry bilaterally, no rales/rhonchi/wheezes Abd: +BS, soft, ND Ext: warm, 2+ pulses in UE/LE bilaterally, no clubbing/cyanosis or edema Neuro: patient writhing in pain, inattentive but able to answer some questions, moving all extremities with 5+ strength Results & Data Results & Data Vital Signs (Past 12 Hours) Vital Signs Temp Pulse Resp BP Pulse Ox O2 Del Method 08/28/22 04:10 96 H 24 93 08/28/22 03:53 123 H 22 151/120 H 92 08/28/22 03:24 108 H 18 152/119 H 91 08/28/22 03:00 105 H 19 158/106 H 94 Room Air 08/28/22 02:30 80 18 137/86 93 Room Air 08/28/22 02:30 137/86 08/28/22 02:20 78 91 Room Air 08/28/22 02:00 80 12 140/93 95 Room Air 08/28/22 01:29 86 16 142/85 H 92 Room Air 08/28/22 01:28 84 08/28/22 01:15 37.0 C 98 H 18 149/88 H 94 Room Air Laboratory Results Laboratory Results WBC 8.43 K/ul (4.8-10.8) 08/28/22 01:38 RBC 5.25 M/uL (4.70-6.10) 08/28/22 01:38 Hgb 16.2 g/dl (14.0-18.0) 08/28/22 01:38 Hct 47.5 % (42.0-52.0) 08/28/22 01:38 MCV 90.5 fL (80.0-100.0) 08/28/22 01:38 MCH 30.9 pg (25.0-34.0) 08/28/22 01:38 MCHC 34.1 g/dL (32.0-36.0) 08/28/22 01:38 RDW Std Deviation 41.0 fL (36.4-46.3) 08/28/22 01:38 RDW Coeff of Netta 12.5 % (11.5-14.5) 08/28/22 01:38 Plt Count 249 K/uL (130-400) 08/28/22 01:38 MPV 9.5 fL (9.4-12.4) 08/28/22 01:38 Immature Gran % (Auto) 0.5 % 08/28/22 01:38 Neut % (Auto) 52.7 % 08/28/22 01:38 Lymph % (Auto) 30.1 % 08/28/22 01:38 [place] % (Auto) 12.3 % 08/28/22 01:38 Eos % (Auto) 3.8 % 08/28/22 01:38 Baso % (Auto) 0.6 % 08/28/22 01:38 Neut # (Auto) 4.44 K/uL (1.40-6.50) 08/28/22 01:38 Lymph # (Auto) 2.54 K/uL (1.2-3.4) 08/28/22 01:38 [place] # (Auto) 1.04 K/uL (0.11-0.59) H 08/28/22 01:38 Eos # (Auto) 0.32 K/uL (0-0.50) 08/28/22 01:38 Baso # (Auto) 0.05 K/uL (0-0.2) 08/28/22 01:38 Immature Gran # (Auto) 0.04 K/uL (0.01-0.20) 08/28/22 01:38 Sodium 137 mmol/L (136-145) 08/28/22 01:38 Potassium 4.0 mmol/L (3.5-5.1) 08/28/22 01:38 Chloride 100 mmol/L (98-107) 08/28/22 01:38 Carbon Dioxide 32 mmol/L (21-32) 08/28/22 01:38 Anion Gap 5 (3-11) 08/28/22 01:38 BUN 17 mg/dl (6-23) 08/28/22 01:38 Creatinine 0.96 mg/dl (0.6-1.4) 08/28/22 01:38 Est Cr Clr Drug Dosing 79.6 ml/min 08/28/22 01:38 Est GFR ( Amer) 92.4 ml/min 08/28/22 01:38 Est GFR (Non-Af Amer) 79.8 ml/min 08/28/22 01:38 BUN/Creatinine Ratio 17.7 (10-20) 08/28/22 01:38 Glucose 83 mg/dl (70-99(Fasting)) 08/28/22 01:38 Calcium 8.9 mg/dl (8.6-10.3) 08/28/22 01:38 Phosphorus 2.4 mg/dl (2.5-4.9) L 08/28/22 01:38 Magnesium 1.7 mg/dl (1.7-2.4) 08/28/22 01:38 Total Bilirubin 0.7 mg/dl (0.2-1.0) 08/28/22 01:38 AST 19 U/L (13-39) 08/28/22 01:38 ALT 14 U/L (7-52) 08/28/22 01:38 Alkaline Phosphatase 47 U/L (34-104) 08/28/22 01:38 Total Protein 7.1 gm/dl (6.0-8.3) 08/28/22 01:38 Albumin 4.1 gm/dl (3.4-5.0) 08/28/22 01:38 Globulin 3.0 gm/dl (2.5-4.0) 08/28/22 01:38 Albumin/Globulin Ratio 1.4 (0.9-2) 08/28/22 01:38 SARS-CoV-2, RNA, NAAT NEGATIVE (NEGATIVE) 08/28/22 02:22 ECG Additional Comments: EKG with NSR at 78, normal axis, TA=051, DKP=847, BVl=843, no acute ischemic changes PG Care Time/CCT Total # of Minutes Spent Total Time Spent with Patient: Total time spent is greater than 50% in coordination of care (as documented) at patient's floor/unit and/or counseling patient: Coding Level of Care Code 31156 INT INP/OBS CARE 3/75MIN Diagnoses Accidental overdose T50.901A BPH (benign prostatic hyperplasia) N40.0 Severe obstructive sleep apnea G47.33 GERD (gastroesophageal reflux disease) K21.9 Hypertension I10 Hypertension type: essential hypertension Depression F32.9 (5) Hypertension Hypertension type: essential hypertension Qualified Code(s): I10 - Essential (primary) hypertension
[2022-08-28] MEDS ORDERED: HYDROmorphone INJ 1 MG/ML SYRINGE IV STA (04:59)
[2022-08-28] MEDS ORDERED: DICYCLOMINE HCL 10 MG CAP PO PRN (05:50)
[2022-08-28] MEDS ORDERED: HYDROmorphone INJ 0.5 MG/0.5 ML SYR IV PRN ×2 (05:50)
[2022-08-28] MEDS ORDERED: LACTATED RINGER'S 1,000 ML IV SCH (05:50)
[2022-08-28] MEDS ORDERED: HYDROmorphone INJ 1 MG/ML SYRINGE IV PRN (06:01)
[2022-08-28] MEDS ORDERED: fentaNYL 100 MCG/HR TDSY TD SCH (07:00)
[2022-08-28] MEDS ORDERED: fentaNYL 75 MCG/HR TDSY TD SCH (07:00)
[2022-08-28] MEDS: HYDROmorphone INJ 2 MG/ML SYR/VIAL IV PRN ×5 (07:34→21:34)
[2022-08-28 07:36] LABS: Acetaminophen < 3 ug/ml (10-30); Salicylate < 3.0 mg/dl (3.0-30)
[2022-08-28] MEDS: CHECK fentaNYL PATCH PLACEMENT SCH ×3 (07:39→23:20)
[2022-08-28] MEDS ORDERED: LOPERAMIDE HCL 2 MG CAP PO PRN (07:42)
[2022-08-28] MEDS ORDERED: PROMETHAZINE HCL 12.5 MG in SODIUM CHLORIDE 0.9% 50 ML IV PRN (07:42)
[2022-08-28] MEDS: DULoxetine HCL 30 MG CAP PO SCH (07:45)
[2022-08-28] MEDS: PANTOprazole 40 MG TAB PO SCH (07:45)
[2022-08-28] MEDS ORDERED: NSS + 20MEQ KCL 20 MEQ/1,000 ML BAG IV SCH (07:45)
[2022-08-28] MEDS: METOPROLOL TARTRATE 25 MG TAB PO SCH ×2 (07:45→21:19)
[2022-08-28] MEDS: LORazepam 2 MG/1 ML VIAL IV PRN ×2 (09:52→20:22)
[2022-08-28] MEDS ORDERED: Nursing to Pharmacy Communication SCH (10:15)
--- NOTE | 2022-08-28 11:20 | Hospitalist Progress Note ---
Date of Service August 28, 2022 Assessment & Plan (1) Accidental overdose: Plan: accidental overdose of Naloxegol (Movantik for opiate-induced constipation). Took ~28 tabs of such. 1/2 life is 6-10 hours. Severe opiate withdrawal symptoms -- copious diarrhea, nausea, yawning, restlessness (severe), and low back pain. Some agitated delirium since presentation requiring IV ativan in the ER (2mg). Has had copious IV narcotics since ER presentation - multiple doses of IV fentanyl, dilaudid, etc. Ordered ativan IV q6h prn restlessness. Could consider clonidine for refractory restlessness/agitation. Phenergan IV prn nausea/emesis. If diarrhea recurs and is severe consider loperamide. Resume fentanyl 75mcg patch q48h. This is his chronic dose per the PDMP. I was in touch with [facility] management this am and will place formal consult for any other recs. Keep room quiet, dimly lit, no TV, box fan for white noise, etc. Cont IVF, NPO for now. Check VBG to r/o any hypercarbia in the setting of copious IV meds since presentation. Primary hand touch up painter at [facility] - Dr Tony Ho ([phone]). (2) Chronic back pain: Plan: fentanyl patch 75mcg q48h as above (3) Severe obstructive sleep apnea: Plan: BIPAP qHS 07/[address] King reviewed - patient was transitioned to BIPAP from CPAP due to hypercarbia in the setting of obesity-hypoventilation syndrome & chronic narcotics asked to bring home unit in VBG now - check pCO2 level (4) Pituitary dysfunction: Plan: patient was to have overnight metapyrone testing last pm but unfortunately he mistook the Movantik for the metapyrone thus, adrenal insufficiency testing not performed sees Dr Reeves at [facility] last office visit 07/2022 reviewed (5) BPH (benign prostatic hyperplasia): Plan: Bladder scan as needed Not on meds for such at home (6) GERD (gastroesophageal reflux disease): Plan: Protonix 40mg po daily (7) Hypertension: Plan: Continue metoprolol Can add clonidine as needed for agitation (8) Depression: Plan: Continue Duloxetine (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 follows with ROBERT Reaves Pulm (10) Restrictive lung disease: Plan: 2nd to obesity-hypoventilation syndrome, #8, etc (11) RLS (restless legs syndrome): Plan: Fe studies 2021 were c/w Fe def will recheck while here this will contribute to his RLS if still Fe def (12) SVT (supraventricular tachycardia): Plan: h/o cont metoprolol tele follows with ROBERT Lovett Cards Plan extensively updated at bedside Admission and Anticipated Discharge Date Admission Date: August 28, 2022 Subjective patient very restless during the visit shifting about in the bed constantly throughout the visit denies any dyspnea denies chest pain denies abd pain no further diarrhea since the ER (copious stool in the ER this am) he c/o back pain in the typical location he has pain at home fentanyl patch came off just before my arrival (the patch itself accidentally came off his skin) at bedside she reports he sees a Dr Tony Ho at [facility] (it is near [place]) office # [phone] tele - episodes of tachycardia when he is agitated Review of Systems Review of Systems: gen - yawning at times per ; sneezing earlier this am; shivering at times cv - no chest pain pulm - no dyspnea GI - no vomiting or pain Physical Exam Physical Exam: gen - obese, restless, c/o low back pain; shifting about in the bed constantly; able to answer my questions eyes - PERRL, pupils 3-4mm in size and reactive b/l mouth - MMM neck - unable to assess for JVD heart - tachy, s1 s2, no murmur lungs - CTA b/l, decreased BS bases abd - soft NT ND BS+; no peritoneal signs ext - no edema, pulses 2+ b/l neuro - very restless, strength 5/5 x 4 exts, no obvious facial droop Results & Data Results & Data Vital Signs (Past 12 Hours) Vital Signs Temp Pulse Pulse Resp BP BP Pulse Ox 08/28/22 08:00 08/28/22 10:39 36.7 C 94 H 19 111/77 91 08/28/22 06:28 36.8 C 118 H 18 148/99 H 97 08/28/22 05:56 36.9 C 124 H 21 148/99 H 99 08/28/22 05:13 125 H 22 163/117 H 94 08/28/22 04:40 119 H 16 93 08/28/22 04:30 117 H 18 156/132 H 90 08/28/22 04:17 114 H 18 151/109 H 94 08/28/22 04:30 08/28/22 04:10 96 H 24 93 08/28/22 03:53 123 H 22 151/120 H 92 08/28/22 03:24 108 H 18 152/119 H 91 08/28/22 03:00 105 H 19 158/106 H 94 08/28/22 02:30 80 18 137/86 93 08/28/22 02:30 137/86 08/28/22 02:20 78 91 08/28/22 02:00 80 12 140/93 95 08/28/22 01:29 86 16 142/85 H 92 08/28/22 01:28 84 08/28/22 01:15 37.0 C 98 H 18 149/88 H 94 O2 Del Method O2 Flow Rate 08/28/22 08:00 Nasal Cannula 2 08/28/22 10:39 Nasal Cannula 2 08/28/22 06:28 Nasal Cannula 3 08/28/22 05:56 Nasal Cannula 2 08/28/22 05:13 Nasal Cannula 2 08/28/22 04:40 Nasal Cannula 2 08/28/22 04:30 08/28/22 04:17 08/28/22 04:30 Nasal Cannula 2 08/28/22 04:10 08/28/22 03:53 08/28/22 03:24 08/28/22 03:00 Room Air 08/28/22 02:30 Room Air 08/28/22 02:30 08/28/22 02:20 Room Air 08/28/22 02:00 Room Air 08/28/22 01:29 Room Air 08/28/22 01:28 08/28/22 01:15 Room Air Laboratory Results Laboratory Results - last 24 hr 08/28/22 08/28/22 08/28/22 01:38 01:38 02:22 WBC 8.43 RBC 5.25 Hgb 16.2 Hct 47.5 MCV 90.5 MCH 30.9 MCHC 34.1 RDW Std Deviation 41.0 RDW Coeff of Netta 12.5 Plt Count 249 MPV 9.5 Immature Gran % (Auto) 0.5 Neut % (Auto) 52.7 Lymph % (Auto) 30.1 [place] % (Auto) 12.3 Eos % (Auto) 3.8 Baso % (Auto) 0.6 Neut # (Auto) 4.44 Lymph # (Auto) 2.54 [place] # (Auto) 1.04 H Eos # (Auto) 0.32 Baso # (Auto) 0.05 Immature Gran # (Auto) 0.04 Sodium 137 Potassium 4.0 Chloride 100 Carbon Dioxide 32 Anion Gap 5 BUN 17 Creatinine 0.96 Est Cr Clr Drug Dosing 79.6 Est GFR ( Amer) 92.4 Est GFR (Non-Af Amer) 79.8 BUN/Creatinine Ratio 17.7 Glucose 83 Calcium 8.9 Phosphorus 2.4 L Magnesium 1.7 Total Bilirubin 0.7 AST 19 ALT 14 Alkaline Phosphatase 47 Total Protein 7.1 Albumin 4.1 Globulin 3.0 Albumin/Globulin Ratio 1.4 Salicylates Acetaminophen SARS-CoV-2, RNA, NAAT NEGATIVE 08/28/22 07:01 WBC RBC Hgb Hct MCV MCH MCHC RDW Std Deviation RDW Coeff of Netta Plt Count MPV Immature Gran % (Auto) Neut % (Auto) Lymph % (Auto) [place] % (Auto) Eos % (Auto) Baso % (Auto) Neut # (Auto) Lymph # (Auto) [place] # (Auto) Eos # (Auto) Baso # (Auto) Immature Gran # (Auto) Sodium Potassium Chloride Carbon Dioxide Anion Gap BUN Creatinine Est Cr Clr Drug Dosing Est GFR ( Amer) Est GFR (Non-Af Amer) BUN/Creatinine Ratio Glucose Calcium Phosphorus Magnesium Total Bilirubin AST ALT Alkaline Phosphatase Total Protein Albumin Globulin Albumin/Globulin Ratio Salicylates < 3.0 L Acetaminophen < 3 L SARS-CoV-2, RNA, NAAT PG Care Time/CCT Total # of Minutes Spent Total Time Spent with Patient: Total time spent is greater than 50% in coordination of care (as documented) at patient's floor/unit and/or counseling patient: Coding Level of Care Code None Diagnoses Accidental overdose T50.901A Chronic back pain M54.9; G89.29 Severe obstructive sleep apnea G47.33 Pituitary dysfunction E23.7 BPH (benign prostatic hyperplasia) N40.0 GERD (gastroesophageal reflux disease) K21.9 Hypertension I10 Hypertension type: essential hypertension Depression F32.9 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 Restrictive lung disease J98.4 RLS (restless legs syndrome) G25.81 SVT (supraventricular tachycardia) I47.1 (7) Hypertension Hypertension type: essential hypertension Qualified Code(s): I10 - Essential (primary) hypertension
[2022-08-28] MEDS: fentaNYL 75 MCG/HR TDSY TD SCH (11:43)
[2022-08-28 11:51] LABS: Base Excess VBG 5.5 mEq/L; HCO3 VBG 32 mmol/L; PCO2 VBG 51 mmHg (38-50); PO2 VBG 38 mmHg
[2022-08-28] MEDS: POTASSIUM CHLORIDE 20 MEQ in LACTATED RINGER'S 1,000 ML IV SCH ×2 (12:23→21:17)
[2022-08-28 12:30] LABS: Albumin Globulin Ratio 1.3 (0.9-2); Albumin Level 3.9 gm/dl (3.4-5.0); BUN Creatinine Ratio 14.1 (10-20); Bilirubin,Total 1.1 mg/dl (0.2-1.0); Calcium 8.9 mg/dl (8.6-10.3); Creatinine Clr Calc Pharmacy 88.4 ml/min; Est GFR (African American) 89.1 ml/min; Est GFR (Non-African American) 76.8 ml/min; Potassium 4.3 mmol/L (3.5-5.1); Total Protein 6.9 gm/dl (6.0-8.3)
[2022-08-28 12:57] LABS: Ferritin 16.9 ng/ml (8-388)
[2022-08-28] MEDS: HYDROmorphone INJ 1 MG/ML SYRINGE IV PRN (19:46)
[2022-08-28] MEDS: ASPIRIN 81 MG ECTAB PO SCH (21:17)
[2022-08-28] MEDS: CYCLOBENZAPRINE HCL 10 MG TAB PO SCH (21:18)
[2022-08-28] MEDS: PRAVASTATIN SOD 20 MG TAB PO SCH (21:19)
[2022-08-28] MEDS: PRAMIPEXOLE DIHYDROCHLO 0.5 MG TAB PO SCH (21:19)
[2022-08-29] MEDS: HYDROmorphone INJ 1 MG/ML SYRINGE IV PRN (05:31)
[2022-08-29] MEDS: POTASSIUM CHLORIDE 20 MEQ in LACTATED RINGER'S 1,000 ML IV SCH (05:50)
[2022-08-29 07:44] LABS: BUN Creatinine Ratio 16.2 (10-20); Calcium 8.4 mg/dl (8.6-10.3); Creatinine Clr Calc Pharmacy 88.5 ml/min; Est GFR (African American) 89.1 ml/min; Est GFR (Non-African American) 76.8 ml/min
[2022-08-29 07:53] LABS: Mean Corpuscular Hemoglobin 30.7 pg (25.0-34.0); Mean Corpuscular Hgb Conc 34.1 g/dL (32.0-36.0); Mean Corpuscular Volume 90.2 fL (80.0-100.0); Mean Platelet Volume 9.6 fL (9.4-12.4); Platelet Count 233 K/uL (130-400); RDW Coefficient of Variation 12.8 % (11.5-14.5); RDW Standard Deviation 42.1 fL (36.4-46.3); Red Blood Count 4.88 M/uL (4.70-6.10); White Blood Count 9.42 K/ul (4.8-10.8)
[2022-08-29] MEDS: CHECK fentaNYL PATCH PLACEMENT SCH ×3 (08:38→23:58)
[2022-08-29] MEDS: DULoxetine HCL 30 MG CAP PO SCH (08:39)
[2022-08-29] MEDS: METOPROLOL TARTRATE 25 MG TAB PO SCH ×2 (08:39→20:47)
[2022-08-29] MEDS: PANTOprazole 40 MG TAB PO SCH (08:40)
--- NOTE | 2022-08-29 08:44 | Pain Management Consultation ---
Date of Consultation August 29, 2022 Assessment & Plan (1) Accidental overdose: (2) Chronic back pain: Plan Half life of Movantik is 6 hours so the medication is out of his system at this point. He will remain on Fentanyl patch 75mcg/hr. Drowsiness may be combination from IV Ativan and Dilaudid. I have advised the patient not to use the IV medications unless necessary so that drowsiness improves and in preparation for discharge and he is understanding. Will sign off on the patien t. Please contact with any questions or concerns. History of Present Illness Reason for Consultation: Accidental overdose Attending Physician: Arnold Rausch MD History of Present Illness This is a 71 year old male that is chronically on Fentanyl 75mccg/hr for chronic back pain. He accidentally took a bottle of Movantik (Naloxegol) rather than Metopirone for a test with endocrinology. In response he experienced sig nificant opioid withdrawal and has been admitted for treatment. He has received Dilaudid 10mg IV, Ativan 2mg IV, and 10mg PO Bentyl over the past 24 hours. Fentanyl patch remains at 75mcg/hr. He is drowsy to speak with and falling asleep during our conversation. He states that his pain has improved since last night and aside from drowsiness denies any symptoms. No nausea, vomiting, diarrhea. Allergies Allergy/AdvReac Type Severity Reaction Status Date / Time bee venom protein (honey bee) Allergy Intermediate EXCESSIVE Verified 08/10/22 13:04 SWELLING AT SITE sulfamethoxazole Allergy Intermediate TONGUE Verified 08/10/22 13:04 SWELLS, WHITE BLISTERS IN MOUTH. trimethoprim Allergy Intermediate TONGUE Verified 08/10/22 13:04 SWELLS, WHITE BLISTERS IN MOUTH. adhesive Allergy Mild SKIN Verified 08/10/22 13:04 IRRITATION morphine AdvReac Intermediate PROJECTILE Verified 08/10/22 13:04 VOMITING Home Medications Medication Instructions Recorded Confirmed Type cyclobenzaprine 10 mg tablet 10 mg PO HS 02/28/19 08/28/22 History omeprazole 20 mg capsule,delayed 20 mg PO HS 02/28/19 08/28/22 History release ondansetron 4 mg disintegrating 4 mg PO Q8H PRN Nausea And Vomiting 04/10/19 08/28/22 History tablet cholecalciferol (vitamin D3) 25 2,000 units PO HS 06/10/19 08/28/22 History mcg (1,000 unit) capsule dicyclomine 10 mg capsule 10 mg PO BID PRN ABD PAIN 02/12/20 08/28/22 History pravastatin 40 mg tablet 20 mg PO HS 11/04/21 08/28/22 History aspirin 81 mg tablet,delayed 81 mg PO HS 02/22/22 08/28/22 History release (Alice Low Dose Aspirin) fentanyl 100 mcg/hr transdermal 100 mcg transdermal Q48H 02/22/22 08/28/22 History patch metoprolol tartrate 25 mg tablet 25 mg PO BID #60 tabs 07/12/22 08/28/22 Rx duloxetine 30 mg capsule,delayed 30 mg PO DAILY #30 caps 07/24/22 08/28/22 Rx release (Cymbalta) pramipexole 0.5 mg tablet 0.5 mg PO HS #20 tabs 07/24/22 08/28/22 Rx mecobalamin (vitamin B12) 1,000 1,000 mcg PO DAILY 07/26/22 08/28/22 History mcg chewable tablet metyrapone 250 mg capsule 250 mg PO .COMPLEX #12 caps 07/28/22 08/28/22 Rx Patient History Medical History BPH (benign prostatic hyperplasia) Depression GERD (gastroesophageal reflux disease) History of acute renal failure Non-ST elevation PA (NSTEMI) Pneumonia Prostatitis Recurrent pneumonia RLS (restless legs syndrome) Surgical History History of ankle surgery Britton reconstruction-right side History of carpal tunnel release History of mandibular surgery History of surgery mass removed from left side of clavicle Status post trigger finger release Family History Mother Cancer Hypertension Myasthenia gravis Breast cancer Son Environmental allergies Asthma Sister Gallbladder disease Father Alzheimer disease Grandmother (Maternal) Colorectal cancer Family/Other Myocardial infarction Other No family history of bleeding disorder Denies family history of Ovarian cancer Prostate cancer Social History Smoking Status: Never smoker Tobacco Type: Cigarettes Second Hand Exposure: No; Do You Dip or Chew Tobacco: No; Hx Alcohol Use: No Hx Substance Use: No (chronic fent patch) Preferred Language: Nigerian Communication Ability: Unable Commodities Trader Required: No Beliefs That Will Affect Care: None marital status: Current Living Situation: Spouse current occupational status: retired Other Information That Helps Us Care for You: No Feels Safe at Home: Yes Safety Concerns: Feels Safe At This Time Childhood Exposure to Second-Hand Smoke: Yes Dental Care, Regularly: No Physical Activity Frequency: Does not Exercise Seatbelt Use: never Sunscreen Use: Yes Assistive Devices: Cane, CPAP, Oxygen - Continuous, Scooter/Electric Scooter and Walker Assistive Devices Comment: o2 prn during day if SOB Physical Exam Physical Exam: GENERAL: This is a 71 year old male that is frequently falling asleep during our discussion but easily arousable. HEAD/FACE: Normocephalic and atraumatic. EYES: No drainage or conjunctival injection. ENT: Nose without bleeding or discharge. Oral mucosa moist. NECK: Full ROM without apparent pain. No swelling or masses noted. RESPIRATORY: Patient with unlabored breathing. No signs of respiratory distress. CHEST/AXILLA: Chest movement symmetrical. No deformities noted. ABDOMEN/GI: No distension SKIN: [place], warm and dry. No rash noted. MS/EXTREMITY: No swelling, no deformities. Moving extremities appropriately. NEURO: Alert and appears oriented. Speech is fluent. Cranial Nerves are grossly intact. PSYCH: Alert, pleasant, affect is calm
--- NOTE | 2022-08-29 12:49 | Hospitalist Progress Note ---
Date of Service August 29, 2022 Assessment & Plan (1) Accidental overdose: Plan: accidental overdose of Naloxegol (Movantik for opiate-induced constipation). Took ~28 tabs of such. 1/2 life is 6-10 hours. Took these at ~midnight on 08/28/22. Developed severe opiate withdrawal symptoms following this accidental ingestion but all symptoms today resolved. Baseline low back pain remains but otherwise he feels much better today. Primary electrostatic painter at [facility] - Dr Tony Ho ([phone]). (2) Chronic back pain: Plan: cont fentanyl patch 75mcg q48h pain is at baseline today (3) Severe obstructive sleep apnea: Plan: BIPAP qHS 07/[address] King reviewed - patient was transitioned to BIPAP from CPAP due to hypercarbia in the setting of obesity-hypoventilation syndrome & chronic narcotics VBG stable on 08/28 cont BIPAP (4) Pituitary dysfunction: Plan: patient was to have overnight metapyrone testing 2 nights ago to r/o adrenal insufficiency [place] [facility] [place] office visit 07/2022 reviewed will order the metapyrone for tonight at midnight (250mg capsules x 12) followed by 11-deoxycortisol, AM cortisol, and ACTH levels tomorrow morning (presume these should be checked at 0800) will inquire with Dr Reeves (5) BPH (benign prostatic hyperplasia): Plan: Bladder scan as needed Not on meds for such at home (6) GERD (gastroesophageal reflux disease): Plan: cont Protonix 40mg po daily (7) Hypertension: Plan: Continue metoprolol Controlled (8) Depression: Plan: Continue Duloxetine (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 despite taking oral Fe at home he is still Fe def EGD/colonoscopy 2-3 years ago - by report - were normal and without signs of occult bleeding capsule endoscopy? repeat EGD/colonoscopy? check TTGs to be complete Plan advance diet to regular ambulate treat pain as needed metapyrone test tonight/am tomorrow d/c IV fluids anticipate d/c home tomorrow appreciate pain management consultation Admission and Anticipated Discharge Date Admission Date: August 28, 2022 Subjective tele stable overnight feels very good tolerating clear liquids pain much improved - it is down to baseline levels today in his low back denies dyspnea, cp, abd pain no further diarrhea he reports that his iron deficiency was dx a few years ago and was placed on oral Fe then had EGD/colonoscopy 2-3 years ago via [facility] system - both were normal, no source of bleeding Review of Systems Review of Systems: gen - feels much better today cv - no cp pulm - no dyspnea GI - no abd pain/N/V/obvious blood per rectum Physical Exam Physical Exam: gen - obese, LOOKS MUCH BETTER TODAY; awake/alert/oriented x 3; comfortably; moving legs a lot (RLS) mouth - MMM neck - no JVD heart - RRR, s1 s2, no murmur lungs - CTA b/l abd - soft NT ND BS+ ext - no edema, pulses 2+ b/l psych - a/o x 3 Results & Data Results & Data Vital Signs (Past 12 Hours) Vital Signs Temp Pulse Pulse Resp BP Pulse Ox O2 Del Method 08/29/22 11:00 36.9 C 54 L 18 115/64 92 Room Air 08/29/22 07:14 66 08/29/22 09:09 Nasal Cannula 08/29/22 08:35 72 08/29/22 08:02 56 L 16 106/70 92 Room Air 08/29/22 07:38 36.8 C 64 19 121/73 97 Room Air 08/29/22 03:16 37 C 64 16 123/82 96 BiPAP O2 Flow Rate 08/29/22 11:00 08/29/22 07:14 08/29/22 09:09 2 08/29/22 08:35 08/29/22 08:02 08/29/22 07:38 08/29/22 03:16 3 Laboratory Results Laboratory Results - last 24 hr 08/28/22 08/29/22 08/29/22 11:33 07:01 07:01 WBC 9.42 RBC 4.88 Hgb 15.0 Hct 44.0 MCV 90.2 MCH 30.7 MCHC 34.1 RDW Std Deviation 42.1 RDW Coeff of Netta 12.8 Plt Count 233 MPV 9.6 Sodium 138 Potassium 5.0 Chloride 103 Carbon Dioxide 32 Anion Gap 3 BUN 16 Creatinine 0.99 Est Cr Clr Drug Dosing 88.5 Est GFR ( Amer) 89.1 Est GFR (Non-Af Amer) 76.8 BUN/Creatinine Ratio 16.2 Glucose 107 H Calcium 8.4 L Ferritin 16.9 PG Care Time/CCT Total # of Minutes Spent Total Time Spent with Patient: Total time spent is greater than 50% in coordination of care (as documented) at patient's floor/unit and/or counseling patient: Coding Level of Care Code 08747 SUB INP/OBS CARE 3/50MIN Diagnoses Accidental overdose T50.901A Chronic back pain M54.9; G89.29 Severe obstructive sleep apnea G47.33 Pituitary dysfunction E23.7 BPH (benign prostatic hyperplasia) N40.0 GERD (gastroesophageal reflux disease) K21.9 Hypertension I10 Hypertension type: essential hypertension Depression F32.9 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 Restrictive lung disease J98.4 RLS (restless legs syndrome) G25.81 SVT (supraventricular tachycardia) I47.1 Iron deficiency E61.1 (7) Hypertension Hypertension type: essential hypertension Qualified Code(s): I10 - Essential (primary) hypertension
[2022-08-29] MEDS ORDERED: IRON SUCROSE 200 MG in 0.9 % SODIUM CHLORIDE 100 ML IV ONE (13:00)
[2022-08-29] MEDS: ASPIRIN 81 MG ECTAB PO SCH (20:48)
[2022-08-29] MEDS: CYCLOBENZAPRINE HCL 10 MG TAB PO SCH (20:48)
[2022-08-29] MEDS: PRAMIPEXOLE DIHYDROCHLO 0.5 MG TAB PO SCH (20:49)
[2022-08-29] MEDS: PRAVASTATIN SOD 20 MG TAB PO SCH (20:49)
--- NOTE | 2022-08-29 22:38 | Electrocardiogram Report ---
Test Reason : Blood Pressure : / mmHG Vent. Rate : 078 BPM Atrial Rate : 078 BPM P-R Int : 222 ms QRS Dur : 092 ms QT Int : 382 ms P-R-T Axes : 052 -06 022 degrees QTc Int : 435 ms Sinus rhythm with 1st degree A-V block Minimal voltage criteria for LVH, may be normal variant Borderline ECG When compared with ECG of 01-JUL-2022 13:03, MT interval has increased Confirmed by Jefferson Ambrocio ([id number]) on 08/29/2022 10:38:25 PM Referred By: Randolph Reeves Confirmed By:Jefferson Ambrocio
[2022-08-30] MEDS ORDERED: METOPIRONE PO ONE
[2022-08-30] MEDS ORDERED: IRON SUCROSE 300 MG in SODIUM CHLORIDE 0.9% 250 ML IV ONE (08:30)
[2022-08-30] MEDS: PANTOprazole 40 MG TAB PO SCH (08:36)
[2022-08-30] MEDS: METOPROLOL TARTRATE 25 MG TAB PO SCH (08:36)
[2022-08-30] MEDS: DULoxetine HCL 30 MG CAP PO SCH (08:36)
[2022-08-30] MEDS: CHECK fentaNYL PATCH PLACEMENT SCH (08:36)
[2022-08-30] MEDS: fentaNYL 75 MCG/HR TDSY TD SCH (10:29)
--- NOTE | 2022-08-30 12:40 | Discharge Summary ---
Date of Service August 30, 2022 Admission HPI Per Admitting Provider Basim Alvarez is a 71yo male with history of BPH, Depression, GERD, CHITRA presenting from home with accidental overdose of Naloxogel. Patient was scheduled to have an overnight metapyrone test performed tomorrow per Endo crinology. He was instructed to take a bottle of Metopyrone with a snack or milk prior to his test. Patient accidentally took a bottle of Naloxogel instead - approximately 28 tablets taken at 12:00. His called Poison Control and he was instructed to come to the ER. Patient arrived in the ER around 01:00 then developed severe watery diarrhea as well as intractable pain and sighs/symptoms of acute opioid withdrawal. Of note, patient is on Fentanyl 75mcg patch daily for chronic back pain - is due to place a new patch today. In the ER patient is afebrile, tachycardic, hypertensive, in acute distress. Several episodes of watery diarrhea. Severe pain. Discussion with poison control - Naloxogel overdose can cause abdominal pain, nausea, vomiting, diarrhea, flatulence and headache as well as acute opioid withdrawal. Symptoms are expected to last 6 hours. Supportive care and treatment for opioid withdrawal recommended. ER Course: NSS x 1000mL Fentanyl 100 mcg IV x 3 (300mcg total) Zofran 4mg IV Ativan 2mg IV Dilaudid 2mg + 2mg + 1mg + 1mg + 2mg +2mg (10mg total) Discharge Exam gen - obese, LOOKS MUCH BETTER TODAY; awake/alert/oriented x 3; comfortably; moving legs a lot (RLS) mouth - MMM neck - no JVD heart - RRR, s1 s2, no murmur lungs - CTA b/l abd - soft NT ND BS+ ext - no edema, pulses 2+ b/l psych - a/o x 3 Discharge Data Allergies Allergy/AdvReac Type Severity Reaction Status Date / Time bee venom protein (honey bee) Allergy Intermediate EXCESSIVE Verified 08/10/22 13:04 SWELLING AT SITE sulfamethoxazole Allergy Intermediate TONGUE Verified 08/10/22 13:04 SWELLS, WHITE BLISTERS IN MOUTH. trimethoprim Allergy Intermediate TONGUE Verified 08/10/22 13:04 SWELLS, WHITE BLISTERS IN MOUTH. adhesive Allergy Mild SKIN Verified 08/10/22 13:04 IRRITATION morphine AdvReac Intermediate PROJECTILE Verified 08/10/22 13:04 VOMITING Consultations 08/28/22 11:17 Consult Pain Management Routine Hospital Course (1) Accidental overdose: accidental overdose of Naloxegol (Movantik for opiate-induced constipation). Took ~28 tabs of such. 1/2 life is 6-10 hours. Took these at ~midnight on 08/28/22. Developed severe opiate withdrawal symptoms following this accidental ingestion but all symptoms today resolved. Baseline low back pain remains but otherwise he feels much better today. Primary pain coordinator at [facility] - Dr Tony Ho ([phone]). (2) Chronic back pain: cont fentanyl patch 75mcg q48h pain is at baseline today (3) Severe obstructive sleep apnea: BIPAP qHS 07/[address] King reviewed - patient was transitioned to BIPAP from CPAP due to hypercarbia in the setting of obesity-hypoventilation syndrome & chronic narcotics VBG stable on 08/28 cont BIPAP (4) Pituitary dysfunction: patient was to have overnight metapyrone testing 2 nights ago to r/o adrenal insufficiency [place] [facility] [place] last office visit 07/2022 reviewed will order the metapyrone for tonight at midnight (250mg capsules x 12) followed by 11-deoxycortisol, AM cortisol, and ACTH levels tomorrow morning (presume these should be checked at 0800) will inquire with Dr Reeves (5) BPH (benign prostatic hyperplasia): Bladder scan as needed Not on meds for such at home (6) GERD (gastroesophageal reflux disease): cont Protonix 40mg po daily (7) Hypertension: Continue metoprolol Controlled (8) Depression: Continue Duloxetine (9) Diaphragmatic disorder: right hemidiaphragm elevation - chronic follows with [facility] no issues at this time (10) Restrictive lung disease: 2nd to obesity-hypoventilation syndrome, #8, etc (11) RLS (restless legs syndrome): Fe studies c/w Fe def (ferritin is <20) Fe def will make his RLS worse venofer 200mg IV x 1 today cont pramipraxole venofer again tomorrow check TTGs in am (12) SVT (supraventricular tachycardia): h/o cont metoprolol tele follows with [facility] Cards no SVT seen while here (13) Iron deficiency: etiology?? despite taking oral Fe at home he is still Fe def EGD/colonoscopy 2-3 years ago - by report - were normal and without signs of occult bleeding capsule endoscopy? repeat EGD/colonoscopy? check TTGs to be complete Plan advance diet to regular ambulate treat pain as needed metapyrone test tonight/am tomorrow d/c IV fluids anticipate d/c home tomorrow appreciate pain management consultation Discharge Plan Discharge Items Patient Disposition: Home - Self-Care Reason For Visit: ACCIDENTAL OVERDOSE Discharge Diagnosis: 1. Accidental overdose with Movantik 2. Acute narcotic withdrawal due to #1 - resolved 3. Chronic narcotic use for low back pain 4. Iron Deficiency - follow-up with gastroenterology recommended 5. Concern for adrenal insufficiency - testing performed here, results pending 6. Restless legs syndrome 7. Sleep apnea Activity: Resume your previous activity Activity Comment: as tolerated Non-emergency contact: Primary Care Provider Call non-emergency contact if: you have any medication questions, your symptoms worsen, your pain is not controlled and your pain is worsening Follow-up/Referrals: Tony Ho [Other] (please see Dr Ho as scheduled in the next few weeks ) Randolph Reeves MD [Physician] - (please contact Dr Reeves's office in 1-2 weeks to discuss the lab tests that were checked on 08/30/22; these were done to rule out a condition called adrenal insufficiency ) [facility] [Primary Care Provider] - (5-7 days ) Diet: Regular Addtl Attending Provider Instructions: Mr Alvarez, 1. You were hospitalized due to an accidental overdose of Movantik which is a drug used for opiate-induced constipation. As a result of the overdose you went into acute narcotic/opiate withdrawal. This was quite severe, and you needed various medications including IV narcotics to get you through the withdrawal period. Once the effects of the Movantik were out of your system (about 24 hours) your withdrawal symptoms resolved and you felt well. 2. In addition to the above we found that you are still iron deficient. Your iron panel is as follows - Ferritin - 16.9 Iron - 57 Transferrin saturation - 16% Total iron binding capacity - 352 The ferritin is a marker of total body storage levels of iron and your level is low. You received 2 runs of IV iron while hospitalized. You do not need to take oral iron supplements when you get home. I would recommend that you follow-up with your emergency generator mechanic to discuss repeat EGD (upper scope), colonoscopy, and / or "capsule endoscopy" to look for a cause of your low iron levels. I did send out a lab screening test for celiac disease to be complete (low risk of having this disease, however). If your ferritin levels remain low your family doctor can order you IV iron again as an outpatient. 3. We have made no changes to any of your chronic medications including your pain medications. 4. Finally, we completed the hormonal test that Dr Reeves from endocrinology had recently ordered. The majority of the tests that were checked on the AM of 08/30 are pending; results likely won't be available for 7-10 days. 5. Follow-up - see separate section Return to [facility] if - * you have uncontrolled pain * you have fevers over 100 degrees * you have chest pain or shortness of breath * any other concerns It was our pleasure to care for you! -Dr Rausch Pending Studies at Discharge: Yes Studies:: Cortisol levels/pituitary levels Stand-Alone Forms: [facility], Smoking Cessation Medications and DC Order Prescriptions: Continued metoprolol tartrate 25 mg tablet 25 mg PO BID Qty: 60 11RF cyclobenzaprine 10 mg tablet 10 mg PO HS ondansetron 4 mg tablet,disintegrating 4 mg PO Q8H PRN (Reason: Nausea And Vomiting) mecobalamin (vitamin B12) 1,000 mcg tablet,chewable 1,000 mcg PO DAILY duloxetine [Cymbalta] 30 mg capsule,delayed release(DR/EC) 30 mg PO DAILY Qty: 30 5RF pramipexole 0.5 mg tablet 0.5 mg PO HS Qty: 20 0RF Rx Instructions: 1 tab po at bedtime, may increase to BID prn. cholecalciferol (vitamin D3) 25 mcg (1,000 unit) capsule 2,000 units PO HS omeprazole 20 mg capsule,delayed release(DR/EC) 20 mg PO HS dicyclomine 10 mg capsule 10 mg PO BID PRN (Reason: ABD PAIN) aspirin [Alice Low Dose Aspirin] 81 mg tablet,delayed release (DR/EC) 81 mg PO HS pravastatin 40 mg Tablet 20 mg PO HS Changed fentanyl 75 mcg/hr patch 72 hour 1 patch transdermal Q48H Qty: 1 0RF Discontinued metyrapone 250 mg capsule 250 mg PO .COMPLEX Qty: 12 0RF Rx Instructions: 250 mg orally Take all 12 capsules at midnight with a glass of milk OR a small snack; Discharge Orders: Discharge Order (Routine); Ordered 08/30/22 Ordered By: Arnold Rausch Admission Data Admit Date/Time: 08/28/22 04:45 Attending Provider: Arnold Rausch Admit Provider: Kimberly Paz Primary Care Provider: [facility] Other Providers: Chayito Elaine Coding Diagnoses Accidental overdose T50.901A Chronic back pain M54.9; G89.29 Severe obstructive sleep apnea G47.33 Pituitary dysfunction E23.7 BPH (benign prostatic hyperplasia) N40.0 GERD (gastroesophageal reflux disease) K21.9 Hypertension I10 Hypertension type: essential hypertension Depression F32.9 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 Restrictive lung disease J98.4 RLS (restless legs syndrome) G25.81 SVT (supraventricular tachycardia) I47.1 Iron deficiency E61.1
[2022-08-31 13:08] LABS: IgA Serum 285 mg/dL (70-320); Tis Trans IgA <1.0 U/mL
== END 2022-08-30 14:09 | disposition home or self-care (01) | DRG 918 ==
LOC: ED 00:59 → 2E 04:45 → SUATTDRO 04:45 → 2E 05:29

== ENCOUNTER 2022-11-22 15:55 | Inpatient (IN) ==
--- NOTE | 2022-11-22 16:27 | Emergency Department Note ---
Impression & Plan Acute confusion, Acute respiratory failure with hypoxia and hypercarbia, Acute respiratory acidosis ED Provider Note HISTORY OF PRESENT ILLNESS: Patient is a 72-year-old male presenting with episode of confusion. reports that she was driving the car with the patient when he acutely became very confused and was opening the glove compartment and was acting very abnormal. She states that he is slightly improved on arrival to the ER, but he is still not his normal self. She is concerned he might be having a TIA. Patient denies any chest pain or shortness of breath. Reports nausea and feels like he is going to vomit. He reports feeling shaky and "weird as hell." He wears a BiPAP at night but is not on any supplemental oxygen throughout the day. Patient denies any headache, change in vision, numbness or tingling or weakness in extremities. No recent changes in medication. No reported falls or head injuries. Denies any chiropractic manipulation of the neck ROS: as above PHYSICAL EXAM: Constitutional: Patient appears in no acute distress. HENT: Head: Normocephalic and atraumatic. Eyes: EOMI, PERRL Mouth/Throat: Mucous membranes moist. Neck: Trachea midline. Neck supple. Cardiovascular: Tachycardic with regular rhythm. No murmurs, rubs or gallops. Intact distal pulses. Pulmonary/Chest: No respiratory distress. Breath sounds clear and equal bilaterally. No wheezes or rales. Abdominal: Abdomen soft, no tenderness, rebound or guarding. Musculoskeletal: No edema, tenderness or deformity noted. Skin: Warm and dry. Patient is flushed and diaphoretic Neurological: Alert. CN II-XII grossly intact, moving all extremities equally and fully. MDM: - Vitals signs showed tachycardia and slight hypoxia - History obtained via patient and patient's , given patient's amnesia to the event. Patient presents with confusion. reports she was driving in the car with the patient when he became very confused and agitated and was acting abnormally. She states that he did not answer questions appropriately, prompting her to present to the emergency department. Reports the patient is slightly improved on arrival to the ER. She is concerned he might of had a TIA. Patient denies any complaints other than nausea on arrival. - Chronic conditions affecting care: depression; HTN; COPD - Differential diagnoses include, but are not limited to: acute coronary syndrome; hypercarbia; CVA; intracranial hemorrhage; pneumonia - Order placed for continuous cardiac monitoring. At this time, monitor showed rate of 99 bpm with normal sinus rhythm, per my interpretation. - External medical records reviewed. - EKG reviewed by myself showed normal sinus rhythm. Rate tachycardic at 104 bpm. QTc 452. No acute ischemic changes. - Laboratory workup interpreted by myself showed normal WBC; normal methemoglob in; normal lactate; stable electrolytes; normal troponin; normal procalcitonin - VBG shows respiratory acidosis (pH 7.26; pCO2 76) - Patient started on BiPAP and his agitation improved slightly. - CT head wo contrast negative for acute pathology - Patient given 4 mg IV zofran in ER for nausea. - Blood cultures obtained. - UA and UDS ordered. - Toxicologic labs (tylenol level, salicylate level, and ethanol level) added to workup. - Discussion was had with mental health social worker about patient's case and need for admission. - Hospitalist consulted for admission [facility] ASSESSMENT AND PLAN: Diagnosis: confusion; acute hypoxic and hypercarbic respiratory failure; respiratory acidosis Plan: admit Past Med/Surg History Medical History Accidental overdose Acute opioid withdrawal BPH (benign prostatic hyperplasia) Chronic back pain Depression Diaphragmatic disorder GERD (gastroesophageal reflux disease) History of acute renal failure Hypertension Iron deficiency Non-ST elevation VA (NSTEMI) Pituitary dysfunction Pneumonia Prostatitis Recurrent pneumonia Restrictive lung disease RLS (restless legs syndrome) Severe obstructive sleep apnea SVT (supraventricular tachycardia) Surgical History History of ankle surgery History of carpal tunnel release History of mandibular surgery History of surgery Status post trigger finger release Family History Mother Cancer Hypertension Myasthenia gravis Breast cancer Son Environmental allergies Asthma Sister Gallbladder disease Father Alzheimer disease Grandmother (Maternal) Colorectal cancer Family/Other Myocardial infarction Other No family history of bleeding disorder Denies family history of Ovarian cancer Prostate cancer Social History Smoking Status: Never smoker Tobacco Type: Cigarettes Second Hand Exposure: No; Do You Dip or Chew Tobacco: No; Hx Alcohol Use: No Hx Substance Use: No (chronic fent patch) Preferred Language: Yakut Communication Ability: Unable Job Placement Counselor Required: No Beliefs That Will Affect Care: None marital status: Current Living Situation: Spouse current occupational status: retired Feels Safe at Home: Yes Childhood Exposure to Second-Hand Smoke: Yes Dental Care, Regularly: No Physical Activity Frequency: Does not Exercise Seatbelt Use: never Sunscreen Use: Yes Assistive Devices: Cane, CPAP, Oxygen - Continuous, Scooter/Electric Scooter and Walker Allergies Allergies Allergy/AdvReac Type Severity Reaction Status Date / Time bee venom protein (honey bee) Allergy Severe EXCESSIVE Verified 11/22/22 18:30 SWELLING AT SITE sulfamethoxazole Allergy Severe TONGUE Verified 11/22/22 18:30 SWELLS, WHITE BLISTERS IN MOUTH. trimethoprim Allergy Severe TONGUE Verified 11/22/22 18:30 SWELLS, WHITE BLISTERS IN MOUTH. adhesive Allergy Intermediate SKIN Verified 11/22/22 18:30 IRRITATION morphine AdvReac Intermediate PROJECTILE Verified 11/22/22 18:30 VOMITING Home Meds Home Medications Medication Instructions Recorded Confirmed cyclobenzaprine 10 mg tablet 10 mg PO HS 02/28/19 11/22/22 omeprazole 20 mg capsule,delayed 20 mg PO HS 02/28/19 11/22/22 release ondansetron 4 mg disintegrating 4 mg PO Q8H PRN Nausea And Vomiting 04/10/19 11/22/22 tablet cholecalciferol (vitamin D3) 25 2,000 units PO HS 06/10/19 11/22/22 mcg (1,000 unit) capsule dicyclomine 10 mg capsule 10 mg PO BID PRN ABD PAIN 02/12/20 11/22/22 pravastatin 40 mg tablet 20 mg PO HS 11/04/21 11/22/22 aspirin 81 mg tablet,delayed 81 mg PO HS 02/22/22 11/22/22 release (Alice Low Dose Aspirin) mecobalamin (vitamin B12) 1,000 1,000 mcg PO HS 07/26/22 11/22/22 mcg chewable tablet metoprolol tartrate 25 mg tablet 12.5 mg PO BID 11/22/22 11/22/22 Previous Rx's Medication Instructions Recorded pramipexole 0.5 mg tablet 0.5 mg PO HS #20 tabs 07/24/22 fentanyl 75 mcg/hr transdermal 1 patch transdermal Q48H #1 ea 08/30/22 patch sildenafil 100 mg tablet 100 mg PO DAILY PRN sexual 10/25/22 activity #7 tabs Results & Data (ED) Vital Signs Vital Signs - 24 hr 11/22/22 15:57 11/22/22 15:55 11/22/22 16:17 Temperature 36.2 C L Temperature Source Temporal Artery Scan Pulse Rate 113 H Pulse Rate [Left Apical] 99 H Pulse Rate from SpO2 Sensor Pulse Rhythm [Left Apical] Regular Pulse Strength [Left Apical] Normal Respiratory Rate 20 22 Respiratory Effort / Characteristics Non-Labored Spontaneous Non-Labored Spontaneous Respiratory Depth Normal Normal Respiratory Pattern Blood Pressure 159/109 H Blood Pressure [Right Arm] 139/107 H Blood Pressure Mean 125 Blood Pressure Mean [Right Arm] 117 Pulse Oximetry 87 L 87 L 94 Oxygen Delivery Method Room Air Room Air Nasal Cannula Oxygen Flow Rate 2 Fraction of Inspired Oxygen Sepsis Recent Fever Within 48 Hours No Sepsis New/Unexplained Change in Mental Status No Sepsis Action Taken by Nursing No Action Required Oxygen Flow Rate - Titration 2 Pulse Oximetry Post Tiitration 94 11/22/22 16:17 11/22/22 16:30 11/22/22 16:44 Temperature Temperature Source Pulse Rate 99 H Pulse Rate [Left Apical] 96 H Pulse Rate from SpO2 Sensor Pulse Rhythm [Left Apical] Pulse Strength [Left Apical] Respiratory Rate 24 Respiratory Effort / Characteristics Short of Breath Respiratory Depth Respiratory Pattern Blood Pressure Blood Pressure [Right Arm] 145/105 H Blood Pressure Mean Blood Pressure Mean [Right Arm] 118 Pulse Oximetry 90 94 Oxygen Delivery Method Room Air Nasal Cannula Oxygen Flow Rate 4 Fraction of Inspired Oxygen Sepsis Recent Fever Within 48 Hours Sepsis New/Unexplained Change in Mental Status Sepsis Action Taken by Nursing Oxygen Flow Rate - Titration Pulse Oximetry Post Tiitration 11/22/22 16:45 11/22/22 16:46 11/22/22 16:11 Temperature Temperature Source Pulse Rate 98 H Pulse Rate [Left Apical] Pulse Rate from SpO2 Sensor Pulse Rhythm [Left Apical] Pulse Strength [Left Apical] Respiratory Rate Respiratory Effort / Characteristics Respiratory Depth Respiratory Pattern Blood Pressure 139/107 H Blood Pressure [Right Arm] Blood Pressure Mean 117 Blood Pressure Mean [Right Arm] Pulse Oximetry 94 90 Oxygen Delivery Method Nasal Cannula Nasal Cannula Oxygen Flow Rate 4 0 Fraction of Inspired Oxygen Sepsis Recent Fever Within 48 Hours Sepsis New/Unexplained Change in Mental Status Sepsis Action Taken by Nursing Oxygen Flow Rate - Titration 4 Pulse Oximetry Post Tiitration 95 11/22/22 16:11 11/22/22 16:36 11/22/22 16:37 Temperature Temperature Source Pulse Rate 104 H 97 H 109 H Pulse Rate [Left Apical] Pulse Rate from SpO2 Sensor 96 H 109 H Pulse Rhythm [Left Apical] Pulse Strength [Left Apical] Respiratory Rate 20 14 17 Respiratory Effort / Characteristics Respiratory Depth Respiratory Pattern Blood Pressure Blood Pressure [Right Arm] Blood Pressure Mean Blood Pressure Mean [Right Arm] Pulse Oximetry 97 96 Oxygen Delivery Method Oxygen Flow Rate Fraction of Inspired Oxygen Sepsis Recent Fever Within 48 Hours Sepsis New/Unexplained Change in Mental Status Sepsis Action Taken by Nursing Oxygen Flow Rate - Titration Pulse Oximetry Post Tiitration 11/22/22 16:37 11/22/22 17:18 11/22/22 17:09 Temperature Temperature Source Pulse Rate 100 H Pulse Rate [Left Apical] Pulse Rate from SpO2 Sensor Pulse Rhythm [Left Apical] Pulse Strength [Left Apical] Respiratory Rate 15 22 Respiratory Effort / Characteristics Non-Labored Spontaneous Respiratory Depth Normal Respiratory Pattern Regular Blood Pressure 145/105 H Blood Pressure [Right Arm] Blood Pressure Mean 118 Blood Pressure Mean [Right Arm] Pulse Oximetry 97 Oxygen Delivery Method Oxygen Flow Rate Fraction of Inspired Oxygen 30 Sepsis Recent Fever Within 48 Hours Sepsis New/Unexplained Change in Mental Status Sepsis Action Taken by Nursing Oxygen Flow Rate - Titration Pulse Oximetry Post Tiitration 11/22/22 17:30 11/22/22 17:30 11/22/22 18:13 Temperature Temperature Source Pulse Rate Pulse Rate [Left Apical] Pulse Rate from SpO2 Sensor 93 H Pulse Rhythm [Left Apical] Pulse Strength [Left Apical] Respiratory Rate 22 Respiratory Effort / Characteristics Respiratory Depth Respiratory Pattern Blood Pressure 126/87 Blood Pressure [Right Arm] Blood Pressure Mean 100 Blood Pressure Mean [Right Arm] Pulse Oximetry 95 Oxygen Delivery Method BiPAP Oxygen Flow Rate Fraction of Inspired Oxygen 30 Sepsis Recent Fever Within 48 Hours Sepsis New/Unexplained Change in Mental Status Sepsis Action Taken by Nursing Oxygen Flow Rate - Titration Pulse Oximetry Post Tiitration 11/22/22 18:00 11/22/22 18:00 11/22/22 18:30 Temperature Temperature Source Pulse Rate 92 H Pulse Rate [Left Apical] Pulse Rate from SpO2 Sensor Pulse Rhythm [Left Apical] Pulse Strength [Left Apical] Respiratory Rate 20 Respiratory Effort / Characteristics Respiratory Depth Respiratory Pattern Blood Pressure 150/93 H 146/111 H Blood Pressure [Right Arm] Blood Pressure Mean 112 122 Blood Pressure Mean [Right Arm] Pulse Oximetry Oxygen Delivery Method Oxygen Flow Rate Fraction of Inspired Oxygen Sepsis Recent Fever Within 48 Hours Sepsis New/Unexplained Change in Mental Status Sepsis Action Taken by Nursing Oxygen Flow Rate - Titration Pulse Oximetry Post Tiitration 11/22/22 18:30 Temperature Temperature Source Pulse Rate 99 H Pulse Rate [Left Apical] Pulse Rate from SpO2 Sensor 99 H Pulse Rhythm [Left Apical] Pulse Strength [Left Apical] Respiratory Rate 21 Respiratory Effort / Characteristics Respiratory Depth Respiratory Pattern Blood Pressure Blood Pressure [Right Arm] Blood Pressure Mean Blood Pressure Mean [Right Arm] Pulse Oximetry 95 Oxygen Delivery Method BiPAP Oxygen Flow Rate Fraction of Inspired Oxygen Sepsis Recent Fever Within 48 Hours Sepsis New/Unexplained Change in Mental Status Sepsis Action Taken by Nursing Oxygen Flow Rate - Titration Pulse Oximetry Post Tiitration Laboratory Data 11/22/22 16:13 11/22/22 16:13 Lab Results 11/22/22 11/22/22 11/22/22 Range/Units 16:13 16:13 16:13 WBC 9.96 (4.8-10.8) K/ul RBC 5.21 (4.70-6.10) M/uL Hgb 16.7 (14.0-18.0) g/dl POC Hgb (14.0-18.0) g/dl Hct 49.9 (42.0-52.0) % POC Hct (42-52) % MCV 95.8 (80.0-100.0) fL MCH 32.1 (25.0-34.0) pg MCHC 33.5 (32.0-36.0) g/dL RDW Std Deviation 50.5 H (36.4-46.3) fL RDW Coeff of Netta 14.4 (11.5-14.5) % Plt Count 244 (130-400) K/uL MPV 9.5 (9.4-12.4) fL Immature Gran % (Auto) 0.6 % Neut % (Auto) 53.3 % Lymph % (Auto) 29.9 % Payette % (Auto) 12.3 % Eos % (Auto) 3.2 % Baso % (Auto) 0.7 % Neut # (Auto) 5.30 (1.40-6.50) K/uL Lymph # (Auto) 2.98 (1.2-3.4) K/uL Payette # (Auto) 1.23 H (0.11-0.59) K/uL Eos # (Auto) 0.32 (0-0.50) K/uL Baso # (Auto) 0.07 (0-0.2) K/uL Immature Gran # (Auto) 0.06 (0.01-0.20) K/uL PT 11.0 (9.0-12.0) Seconds INR 1.0 (0.9-1.1) APTT 24.8 (21.0-31.0) Seconds PTT Ratio 0.9 VBG pH (7.36-7.41) VBG pCO2 (38-50) mmHg VBG pO2 mmHg VBG HCO3 mmol/L VBG O2 Saturation % VBG Base Excess mEq/L Methemoglobin (0.0-1.5) % POC Sodium (135-144) mmol/L Sodium 140 (136-145) mmol/L POC Potassium (3.3-5.0) mmol/L Potassium 3.6 (3.5-5.1) mmol/L POC Chloride (101-112) mmol/L Chloride 102 (98-107) mmol/L Carbon Dioxide 32 (21-32) mmol/L POC Total CO2 (24-31) mmol/L Anion Gap 6 (3-11) POC Anion Gap (16-25) mmol/L POC BUN (7-18) mg/dl BUN 18 (6-23) mg/dl Creatinine 1.09 (0.6-1.4) mg/dl POC Creatinine (0.6-1.3) mg/dl Est Cr Clr Drug Dosing Not Reportable Est GFR ( Amer) 78.7 ml/min Est GFR (Non-Af Amer) 67.9 ml/min BUN/Creatinine Ratio 16.5 (10-20) Glucose 131 H (70-99(Fasting)) mg/dl POC Glucose (70-99) mg/dl POC Glucose (other) (70-99) mg/dl Lactate (0.4-2.0) mmol/L Calcium 9.7 (8.6-10.3) mg/dl POC Ioniz Calcium Arlene (1.12-1.32) mmol/l Magnesium 1.8 (1.7-2.4) mg/dl Total Bilirubin 1.5 H (0.2-1.0) mg/dl Direct Bilirubin 0.3 H (0-0.2) mg/dl AST 23 (13-39) U/L ALT 19 (7-52) U/L Alkaline Phosphatase 52 (34-104) U/L Troponin I High Sens 9.6 (0-20) pg/ml Total Protein 7.7 (6.0-8.3) gm/dl Albumin 4.5 (3.4-5.0) gm/dl Globulin 3.2 (2.5-4.0) gm/dl Albumin/Globulin Ratio 1.4 (0.9-2) Procalcitonin (0-0.5) ng/ml 11/22/22 11/22/22 11/22/22 Range/Units 16:13 16:16 16:16 WBC (4.8-10.8) K/ul RBC (4.70-6.10) M/uL Hgb (14.0-18.0) g/dl POC Hgb 18.0 (14.0-18.0) g/dl Hct (42.0-52.0) % POC Hct 53 H (42-52) % MCV (80.0-100.0) fL MCH (25.0-34.0) pg MCHC (32.0-36.0) g/dL RDW Std Deviation (36.4-46.3) fL RDW Coeff of Netta (11.5-14.5) % Plt Count (130-400) K/uL MPV (9.4-12.4) fL Immature Gran % (Auto) % Neut % (Auto) % Lymph % (Auto) % Payette % (Auto) % Eos % (Auto) % Baso % (Auto) % Neut # (Auto) (1.40-6.50) K/uL Lymph # (Auto) (1.2-3.4) K/uL Payette # (Auto) (0.11-0.59) K/uL Eos # (Auto) (0-0.50) K/uL Baso # (Auto) (0-0.2) K/uL Immature Gran # (Auto) (0.01-0.20) K/uL PT (9.0-12.0) Seconds INR (0.9-1.1) APTT (21.0-31.0) Seconds PTT Ratio VBG pH (7.36-7.41) VBG pCO2 (38-50) mmHg VBG pO2 mmHg VBG HCO3 mmol/L VBG O2 Saturation % VBG Base Excess mEq/L Methemoglobin (0.0-1.5) % POC Sodium 140 (135-144) mmol/L Sodium (136-145) mmol/L POC Potassium 3.5 (3.3-5.0) mmol/L Potassium (3.5-5.1) mmol/L POC Chloride 99 L (101-112) mmol/L Chloride (98-107) mmol/L Carbon Dioxide (21-32) mmol/L POC Total CO2 30 (24-31) mmol/L Anion Gap (3-11) POC Anion Gap 16.0 (16-25) mmol/L POC BUN 18 (7-18) mg/dl BUN (6-23) mg/dl Creatinine (0.6-1.4) mg/dl POC Creatinine 1.1 (0.6-1.3) mg/dl Est Cr Clr Drug Dosing Est GFR ( Amer) ml/min Est GFR (Non-Af Amer) ml/min BUN/Creatinine Ratio (10-20) Glucose (70-99(Fasting)) mg/dl POC Glucose 131 H (70-99) mg/dl POC Glucose (other) 131 H (70-99) mg/dl Lactate (0.4-2.0) mmol/L Calcium (8.6-10.3) mg/dl POC Ioniz Calcium Ralene 1.23 (1.12-1.32) mmol/l Magnesium (1.7-2.4) mg/dl Total Bilirubin (0.2-1.0) mg/dl Direct Bilirubin (0-0.2) mg/dl AST (13-39) U/L ALT (7-52) U/L Alkaline Phosphatase (34-104) U/L Troponin I High Sens (0-20) pg/ml Total Protein (6.0-8.3) gm/dl Albumin (3.4-5.0) gm/dl Globulin (2.5-4.0) gm/dl Albumin/Globulin Ratio (0.9-2) Procalcitonin < 0.05 (0-0.5) ng/ml 11/22/22 11/22/22 11/22/22 Range/Units 16:26 16:43 16:43 WBC (4.8-10.8) K/ul RBC (4.70-6.10) M/uL Hgb (14.0-18.0) g/dl POC Hgb (14.0-18.0) g/dl Hct (42.0-52.0) % POC Hct (42-52) % MCV (80.0-100.0) fL MCH (25.0-34.0) pg MCHC (32.0-36.0) g/dL RDW Std Deviation (36.4-46.3) fL RDW Coeff of Netta (11.5-14.5) % Plt Count (130-400) K/uL MPV (9.4-12.4) fL Immature Gran % (Auto) % Neut % (Auto) % Lymph % (Auto) % Payette % (Auto) % Eos % (Auto) % Baso % (Auto) % Neut # (Auto) (1.40-6.50) K/uL Lymph # (Auto) (1.2-3.4) K/uL Payette # (Auto) (0.11-0.59) K/uL Eos # (Auto) (0-0.50) K/uL Baso # (Auto) (0-0.2) K/uL Immature Gran # (Auto) (0.01-0.20) K/uL PT (9.0-12.0) Seconds INR (0.9-1.1) APTT (21.0-31.0) Seconds PTT Ratio VBG pH 7.26 L (7.36-7.41) VBG pCO2 76 H (38-50) mmHg VBG pO2 39 mmHg VBG HCO3 34 mmol/L VBG O2 Saturation < 60.0 % VBG Base Excess 4.5 mEq/L Methemoglobin < 0.7 (0.0-1.5) % POC Sodium (135-144) mmol/L Sodium (136-145) mmol/L POC Potassium (3.3-5.0) mmol/L Potassium (3.5-5.1) mmol/L POC Chloride (101-112) mmol/L Chloride (98-107) mmol/L Carbon Dioxide (21-32) mmol/L POC Total CO2 (24-31) mmol/L Anion Gap (3-11) POC Anion Gap (16-25) mmol/L POC BUN (7-18) mg/dl BUN (6-23) mg/dl Creatinine (0.6-1.4) mg/dl POC Creatinine (0.6-1.3) mg/dl Est Cr Clr Drug Dosing Est GFR ( Amer) ml/min Est GFR (Non-Af Amer) ml/min BUN/Creatinine Ratio (10-20) Glucose (70-99(Fasting)) mg/dl POC Glucose (70-99) mg/dl POC Glucose (other) (70-99) mg/dl Lactate 1.2 (0.4-2.0) mmol/L Calcium (8.6-10.3) mg/dl POC Ioniz Calcium Arlene (1.12-1.32) mmol/l Magnesium (1.7-2.4) mg/dl Total Bilirubin (0.2-1.0) mg/dl Direct Bilirubin (0-0.2) mg/dl AST (13-39) U/L ALT (7-52) U/L Alkaline Phosphatase (34-104) U/L Troponin I High Sens (0-20) pg/ml Total Protein (6.0-8.3) gm/dl Albumin (3.4-5.0) gm/dl Globulin (2.5-4.0) gm/dl Albumin/Globulin Ratio (0.9-2) Procalcitonin (0-0.5) ng/ml Administered Medications Discontinued Medications Ondansetron HCl (Ondansetron Inj 2 Mg/Ml 2 Ml Vial) 4 mg IV NOW STA Stop: 11/22/22 16:39 Last Admin: 11/22/22 16:42 Dose: 4 mg Documented By: EDER Ondansetron HCl (Ondansetron Inj 2 Mg/Ml 2 Ml Vial) Confirm Administered Dose 4 mg .ROUTE .[facility] Stop: 11/22/22 16:40 Last Admin: 11/22/22 16:42 Dose: Not Given Documented By: KV Imaging Data Radiologist's Impression: Chest X-Ray 11/22/22 16:14 XR chest 1V portable CLINICAL HISTORY: stroke alert COMPARISON STUDY: Chest CT June 11, 2022. Chest radiograph July 01, 2022. FINDINGS: Moderate elevation of the right hemidiaphragm is unchanged. There is no pneumothorax or pleural effusion. Cardiomediastinal silhouette is stable. The appearance of the chest is unchanged. There is no evidence for pulmonary edema. IMPRESSION: No acute cardiopulmonary findings. No change in appearance of the chest. ACT 112: Negative or not required by law. Electronically signed by: Teo Paulino M.D. 11/22/2022 6:[address] 11/22/22 16:14 CT OF THE HEAD WITHOUT CONTRAST CLINICAL HISTORY: Neuro deficit, acute, stroke suspected COMPARISON STUDY: MRI of the brain January 12, 2022. Head CT June 17, 2022. CT DOSE: 1172.16 mGy.cm TECHNIQUE: Helical axial images of the head were obtained without IV contrast. Automated exposure control was utilized for the study. A dose lowering technique was utilized adhering to the principles of ALARA. FINDINGS: No acute intracranial hemorrhage, midline shift or mass effect is present. The ventricular system is stable. White matter hypodensities are unchanged and favor small vessel disease. The basal cisterns are patent. No extra-axial collections are present. There are no findings to suggest acute dural sinus thrombosis or acute territorial infarct. No significant calvarial abnormalities are present. Visualized portions of the sinuses and mastoid air cells are clear. IMPRESSION: No acute intracranial findings. No change in appearance of the brain. ACT 112: Negative or not required by law. Electronically signed by: Teo Paulino M.D. 11/22/2022 4:50 PM Discharge Plan Visit Data Chief Complaint: Stroke/CVA Symptoms Stated Complaint: STROKE,SWEATING,CONFUSION ED Provider: Tracee Sampson Discharge Problem: Acute confusion, Acute respiratory failure with hypoxia and hypercarbia, Acute respiratory acidosis Forms Stand Alone Forms: [facility] [employer] Prescriptions Prescriptions: No Action cyclobenzaprine 10 mg tablet 10 mg PO HS ondansetron 4 mg tablet,disintegrating 4 mg PO Q8H PRN (Reason: Nausea And Vomiting) mecobalamin (vitamin B12) 1,000 mcg tablet,chewable 1,000 mcg PO HS pramipexole 0.5 mg tablet 0.5 mg PO HS Qty: 20 0RF Rx Instructions: 1 tab po at bedtime, may increase to BID prn. cholecalciferol (vitamin D3) 25 mcg (1,000 unit) capsule 2,000 units PO HS sildenafil 100 mg tablet 100 mg PO DAILY PRN (Reason: sexual activity) Qty: 7 3RF Rx Instructions: Administer 30 minutes to 4 hours before activity. omeprazole 20 mg capsule,delayed release(DR/EC) 20 mg PO HS dicyclomine 10 mg capsule 10 mg PO BID PRN (Reason: ABD PAIN) aspirin [Alice Low Dose Aspirin] 81 mg tablet,delayed release (DR/EC) 81 mg PO HS metoprolol tartrate 25 mg tablet 12.5 mg PO BID pravastatin 40 mg Tablet 20 mg PO HS fentanyl 75 mcg/hr patch 72 hour 1 patch transdermal Q48H Qty: 1 0RF Referrals Referrals: [facility] [Primary Care Provider] -
[2022-11-22 16:29] LABS: iSTAT Creatinine 1.1 mg/dl (0.6-1.3); iSTAT Ionized Calcium 1.23 mmol/l (1.12-1.32); iSTAT Potassium 3.5 mmol/L (3.3-5.0)
[2022-11-22] MEDS ORDERED: ONDANSETRON INJ 2 MG/ML 2 ML VIAL IV STA (16:38)
[2022-11-22] MEDS ORDERED: ONDANSETRON INJ 2 MG/ML 2 ML VIAL ONE (16:39)
[2022-11-22 16:44] LABS: Base Excess VBG 4.5 mEq/L; HCO3 VBG 34 mmol/L; Oxygen Saturation VBG < 60.0 %; PCO2 VBG 76 mmHg (38-50); PO2 VBG 39 mmHg; pH VBG 7.26 (7.36-7.41)
--- NOTE | 2022-11-22 16:51 | CT Scan Report ---
CT OF THE HEAD WITHOUT CONTRAST CLINICAL HISTORY: Neuro deficit, acute, stroke suspected COMPARISON STUDY: MRI of the brain January 12, 2022. Head CT June 17, 2022. CT DOSE: 1172.16 mGy.cm TECHNIQUE: Helical axial images of the head were obtained without IV contrast. Automated exposure con trol was utilized for the study. A dose lowering technique was utilized adhering to the principles o f ALARA. FINDINGS: No acute intracranial hemorrhage, midline shift or mass effect is present. The ventricular system is stable. White matter hypodensities are unchanged and favor small vessel disease. The basal cisterns are patent. No extra-axial collections are present. There are no findings to suggest acute d ural sinus thrombosis or acute territorial infarct. No significant calvarial abnormalities are presen t. Visualized portions of the sinuses and mastoid air cells are clear. IMPRESSION: No acute intracranial findings. No change in appearance of the brain. ACT 112: Negative or not required by law. Electronically signed by: Teo Paulino M.D. 11/22/2022 4:50 PM
[2022-11-22 16:54] LABS: Basophils # (auto) 0.07 K/uL (0-0.2); Basophils % (auto) 0.7 %; Eosinophils # (auto) 0.32 K/uL (0-0.50); Eosinophils % (auto) 3.2 %; Hematocrit (blood only) 49.9 % (42.0-52.0); Hemoglobin 16.7 g/dl (14.0-18.0); Immature Granulocytes # (auto) 0.06 K/uL (0.01-0.20); Immature Granulocytes % (auto) 0.6 %; Lymphocytes # (auto) 2.98 K/uL (1.2-3.4); Lymphocytes % (auto) 29.9 %; Mean Corpuscular Hemoglobin 32.1 pg (25.0-34.0); Mean Corpuscular Hgb Conc 33.5 g/dL (32.0-36.0); Mean Corpuscular Volume 95.8 fL (80.0-100.0); Mean Platelet Volume 9.5 fL (9.4-12.4); Monocytes # (auto) 1.23 K/uL (0.11-0.59); Monocytes % (auto) 12.3 %; Neutrophils % (auto) 53.3 %; Platelet Count 244 K/uL (130-400); RDW Coefficient of Variation 14.4 % (11.5-14.5); RDW Standard Deviation 50.5 fL (36.4-46.3); Red Blood Count 5.21 M/uL (4.70-6.10); White Blood Count 9.96 K/ul (4.8-10.8)
[2022-11-22 17:07] LABS: Alanine Aminotransferase 19 U/L (7-52); Albumin Globulin Ratio 1.4 (0.9-2); Albumin Level 4.5 gm/dl (3.4-5.0); Alkaline Phosphatase 52 U/L (34-104); Anion Gap 6 (3-11); Aspartate Aminotransferase 23 U/L (13-39); BUN Creatinine Ratio 16.5 (10-20); Bilirubin Direct 0.3 mg/dl (0-0.2); Bilirubin,Total 1.5 mg/dl (0.2-1.0); Blood Urea Nitrogen 18 mg/dl (6-23); Calcium 9.7 mg/dl (8.6-10.3); Carbon Dioxide 32 mmol/L (21-32); Chloride 102 mmol/L (98-107); Est GFR (African American) 78.7 ml/min; Est GFR (Non-African American) 67.9 ml/min; Globulin 3.2 gm/dl (2.5-4.0); Glucose 131 mg/dl (70-99(Fasting)); Magnesium 1.8 mg/dl (1.7-2.4); Potassium 3.6 mmol/L (3.5-5.1); Sodium 140 mmol/L (136-145); Total Protein 7.7 gm/dl (6.0-8.3)
[2022-11-22 17:12] LABS: Troponin I High Sensitivity 9.6 pg/ml (0-20)
[2022-11-22 17:27] LABS: Partial Thromboplastin Ratio 0.9; Partial Thromboplastin Time 24.8 Seconds (21.0-31.0)
--- NOTE | 2022-11-22 18:18 | XRay Report ---
XR chest 1V portable CLINICAL HISTORY: stroke alert COMPARISON STUDY: Chest CT June 11, 2022. Chest radiograph July 01, 2022. FINDINGS: Moderate elevation of the right hemidiaphragm is unchanged. There is no pneumothorax or ple ural effusion. Cardiomediastinal silhouette is stable. The appearance of the chest is unchanged. Ther e is no evidence for pulmonary edema. IMPRESSION: No acute cardiopulmonary findings. No change in appearance of the chest. ACT 112: Negative or not required by law. Electronically signed by: Teo Paulino M.D. 11/22/2022 6:17 PM
--- NOTE | 2022-11-22 18:44 | History & Physical Report ---
Date of Service November 22, 2022 Assessment & Plan (1) Acute confusion: Plan: Acute Hypoxic Repository Failure with Hypoxia, Hypercarbia and Respiratory Acidosis - Back at baseline mental status after BiPap until acidosis/hypercarbia resolves - Continue continuous BiPaP - q4 VBG Altered Mental Status - likely secondary to hypercarbia/acute resp failure - UDS, UA, blood culture pending Chronic pain/Depression - Secondary to back pain -Continue Cyclobenzaprine, Cymbalta, Pramipexole -Fentanyl patch, new patched placed this morning prior to admission. Will replace. History of Paroxysmal SVT - continue metoprolol GERD -Continue omeprazole B12 Def - continue B12 HLD - continue pravastatin Dispo: PCU Diet: Full VTE Prophylaxis: Lovenox Code: Full (2) Acute respiratory failure with hypoxia and hypercarbia: (3) Acute respiratory acidosis: (4) History of paroxysmal supraventricular tachycardia: (5) B12 deficiency: (6) Chronic pain: History of Present Illness Primary Care Provider: [facility] 72 year old male with a past medical history of BPH, Depression, GERD, CHITRA, restrictive lung disease and chronic hypercarbic, chronic back pain, HTN, paroxysmal SVT presenting with altered mental status. He was at a doctors appointment at the [place] this afternoon with his . When he went to get in the car he became agitated and was doing things that were out of the normal for him. states that he was tapping and reaching for things in the glove box. Similar presentation to when he has been hypercarbic in the past. He has not had any incidents like this since he started using BiPap overnight and prior to that he only had episodes of confusion overnight. His also notes that he became diaphoretic. No recent illness, has been in his normal state of health up until this afternoon. Denies headache, vision changes, chest pain, cough, weakness. He uses 3L of O2 at night and throughout the day prn. Follows with Dr. King for restrictive lung disease due to elevated hemidiaphragm with hypercarbic respiratory failure.Hypercarbic likely secondary to pain medications and sleep disordered breathing/obesity hypoventilation syndrome. ED Coarse Significant for: VBG a pH= 7.26, respiratory acidosis and hypercarbic. Head CT negative. CXR negative. Was hypoxic with an SpO2= 87 upon arrival. Started on BiPaP and since diaphoresis and confusion have both resolved. states that he is at his baseline. Allergies Allergy/AdvReac Type Severity Reaction Status Date / Time bee venom protein (honey bee) Allergy Severe EXCESSIVE Verified 11/22/22 18:30 SWELLING AT SITE sulfamethoxazole Allergy Severe TONGUE Verified 11/22/22 18:30 SWELLS, WHITE BLISTERS IN MOUTH. trimethoprim Allergy Severe TONGUE Verified 11/22/22 18:30 SWELLS, WHITE BLISTERS IN MOUTH. adhesive Allergy Intermediate SKIN Verified 11/22/22 18:30 IRRITATION morphine AdvReac Intermediate PROJECTILE Verified 11/22/22 18:30 VOMITING Home Medications Medication Instructions Recorded Confirmed Type cyclobenzaprine 10 mg tablet 10 mg PO HS 02/28/19 11/22/22 History omeprazole 20 mg capsule,delayed 20 mg PO HS 02/28/19 11/22/22 History release ondansetron 4 mg disintegrating 4 mg PO Q8H PRN Nausea And Vomiting 04/10/19 11/22/22 History tablet cholecalciferol (vitamin D3) 25 2,000 units PO HS 06/10/19 11/22/22 History mcg (1,000 unit) capsule dicyclomine 10 mg capsule 10 mg PO BID PRN ABD PAIN 02/12/20 11/22/22 History pravastatin 40 mg tablet 20 mg PO HS 11/04/21 11/22/22 History aspirin 81 mg tablet,delayed 81 mg PO HS 02/22/22 11/22/22 History release (Alice Low Dose Aspirin) pramipexole 0.5 mg tablet 0.5 mg PO HS #20 tabs 07/24/22 11/22/22 Rx mecobalamin (vitamin B12) 1,000 1,000 mcg PO HS 07/26/22 11/22/22 History mcg chewable tablet fentanyl 75 mcg/hr transdermal 1 patch transdermal Q48H #1 ea 08/30/22 11/22/22 Rx patch sildenafil 100 mg tablet 100 mg PO DAILY PRN sexual 10/25/22 11/22/22 Rx activity #7 tabs metoprolol tartrate 25 mg tablet 12.5 mg PO BID 11/22/22 11/22/22 History Past Med/Surg History Medical History Accidental overdose Acute opioid withdrawal BPH (benign prostatic hyperplasia) Chronic back pain Depression Diaphragmatic disorder GERD (gastroesophageal reflux disease) History of acute renal failure Hypertension Iron deficiency Non-ST elevation [place] (NSTEMI) Pituitary dysfunction Pneumonia Prostatitis Recurrent pneumonia Restrictive lung disease RLS (restless legs syndrome) Severe obstructive sleep apnea SVT (supraventricular tachycardia) Surgical History History of ankle surgery History of carpal tunnel release History of mandibular surgery History of surgery Status post trigger finger release Family History Mother Cancer Hypertension Myasthenia gravis Breast cancer Son Environmental allergies Asthma Sister Gallbladder disease Father Alzheimer disease Grandmother (Maternal) Colorectal cancer Family/Other Myocardial infarction Other No family history of bleeding disorder Denies family history of Ovarian cancer Prostate cancer Social History Smoking Status: Never smoker Tobacco Type: Cigarettes Second Hand Exposure: No; Do You Dip or Chew Tobacco: No; Hx Alcohol Use: No Hx Substance Use: No (chronic fent patch) Preferred Language: [place] Communication Ability: Unable Aircraft Avionics Technician Required: No Beliefs That Will Affect Care: None marital status: Current Living Situation: Spouse current occupational status: retired Feels Safe at Home: Yes Childhood Exposure to Second-Hand Smoke: Yes Dental Care, Regularly: No Physical Activity Frequency: Does not Exercise Seatbelt Use: never Sunscreen Use: Yes Assistive Devices: Cane, CPAP, Oxygen - Continuous, Scooter/Electric Scooter and Walker Review of Systems Review of Systems: As per HPI Physical Exam Physical Exam: Constitutional: well-appearing, no acute distress HEENT: NCAT, no conjunctival injection CV: regular rhythm, no murmur appreciated, extremities well-perfused, no LE edema Resp: CTABL, no wheezes/rales/rhonchi appreciated, on BiPap GI: soft, nondistended, nontender, BS normoactive MSK: no gross deformities appreciated Skin: warm, dry, no rash appreciated Neuro: alert, oriented, no focal neurologic deficit appreciated Neurologic: PERRL, EOMI, accommodation nl, no face palsy, no dysarthria CN's II-XI intact bilaterally and moves all extremities; no focal motor deficits and not confused Speech / Cognition: normal speech Strength 5/5 in UE/LE B/L Results & Data Results & Data Vital Signs (Past 12 Hours) Vital Signs Temp Pulse Pulse Resp BP BP Pulse Ox 11/22/22 18:30 99 H 21 95 11/22/22 18:30 146/111 H 11/22/22 18:00 92 H 20 11/22/22 18:00 150/93 H 11/22/22 18:13 11/22/22 17:30 22 95 11/22/22 17:30 126/87 11/22/22 17:09 22 11/22/22 17:18 100 H 15 97 11/22/22 16:37 145/105 H 11/22/22 16:37 109 H 17 96 11/22/22 16:36 97 H 14 97 11/22/22 16:11 104 H 20 11/22/22 16:11 139/107 H 11/22/22 16:46 90 11/22/22 16:45 98 H 94 11/22/22 16:44 96 H 24 145/105 H 94 11/22/22 16:30 90 11/22/22 16:17 99 H 11/22/22 16:17 99 H 22 139/107 H 94 11/22/22 15:55 87 L 11/22/22 15:57 36.2 C L 113 H 20 159/109 H 87 L O2 Del Method O2 Flow Rate FiO2 11/22/22 18:30 BiPAP 11/22/22 18:30 11/22/22 18:00 11/22/22 18:00 11/22/22 18:13 30 11/22/22 17:30 BiPAP 11/22/22 17:30 11/22/22 17:09 11/22/22 17:18 30 11/22/22 16:37 11/22/22 16:37 11/22/22 16:36 11/22/22 16:11 11/22/22 16:11 11/22/22 16:46 Nasal Cannula 0 11/22/22 16:45 Nasal Cannula 4 11/22/22 16:44 Nasal Cannula 4 11/22/22 16:30 Room Air 11/22/22 16:17 11/22/22 16:17 Nasal Cannula 2 11/22/22 15:55 Room Air 11/22/22 15:57 Room Air Supervising Physician Co-Signing Physician Notes Patient seen and examined, chart reviewed, case discussed with Areli Christensen, and I agree with the assessment and plan as above except as otherwise noted Labs and images reviewed 62yo M with a PMHx of RLD, chronic hypercarbic respiratory failure, ILD, chronic back pain, pAfib, pSVT who got slightly confused and agitated [facility]. Prior symptoms have been improved and less frequent with Bipap at home with which he is normally compliant. Suspected to have some decreased drive 2/2 pain medicines and OHVS. Witth his episode was a little 'red and sweaty' which passed quickly. No fever/chills. Denies chest pain.He has had increased back pain and while he normally uses oxycodone for breakthrough only once or twice a month has used this several times daily in the last week. Suspect this is likely to have suppressed respirations/minute ventilation enough to have caused his hypercapnic respiratory failure. He denies any wheezing or other pulmonary change. Has established with Nhi to potentially have his right diaphragm tacked down as it is chronically elevated due to a crush injury, can keep follow-up for this. Has gotten mixed opinions on whether or not this would ultimately help. Lungs are grossly clear on admit, patient is mentating normally at time of assessment. on admit BC 7.26, pCO2 76. Acute resp acidosis.Suspect AMS is due to acute hypercapneic respiratory failure. AMS is now improved following bipap. CThead was without acute findings, chest x-ray is without acute findings. Improving with conservative treatment of hypercapnia, no wheezing or evidence of PNA/AoCCOPD. Does have history of restrictive lung disease, PFTs 2020 reviewed. Pro-Luis Eduardo is negative. EKG without acute change. Agree w/ management as above. Resident Activity Tracking Resident Involvement: Resident Care Provided Care Provided: Adult Hospital Medicine
--- NOTE | 2022-11-22 19:14 | Billing Data ---
Date of Service November 22, 2022 Coding Level of Care Code 52975 INT INP/OBS CARE
[2022-11-22 19:46] LABS: Acetaminophen < 3 ug/ml (10-30); Salicylate < 3.0 mg/dl (3.0-30)
[2022-11-22 19:47] LABS: Base Excess VBG 7.2 mEq/L; HCO3 VBG 36 mmol/L; Oxygen Saturation VBG < 60.0 %; PCO2 VBG 74 mmHg (38-50); PO2 VBG 28 mmHg
[2022-11-22] MEDS ORDERED: fentaNYL 75 MCG/HR TDSY TD SCH (22:00)
[2022-11-22] MEDS: ASPIRIN 81 MG ECTAB PO SCH (22:36)
[2022-11-22] MEDS: METOPROLOL TARTRATE 25 MG TAB PO SCH (22:36)
[2022-11-22] MEDS: ENOXAPARIN INJ 40 MG/0.4 ML SYR SQ SCH (22:36)
[2022-11-22] MEDS: CYANOCOBALAMIN (B-12) 500 MCG TABLET PO SCH (22:37)
[2022-11-22] MEDS: CHOLECALCIFEROL 1,000 UNITS 25 MCG TAB PO SCH (22:37)
[2022-11-22] MEDS: CYCLOBENZAPRINE HCL 10 MG TAB PO SCH (22:37)
[2022-11-22] MEDS: PANTOprazole 40 MG TAB PO SCH (22:37)
[2022-11-22] MEDS: PRAVASTATIN SOD 20 MG TAB PO SCH (22:37)
[2022-11-22] MEDS: PRAMIPEXOLE DIHYDROCHLO 0.5 MG TAB PO SCH (22:37)
[2022-11-23 00:15] LABS: Appearance Urine Clear (Clear); Bacteria Urine Automated Negative (Negative); Bilirubin Urine Negative (Negative); Blood Urine Negative (Negative); Cast Urine Automated 0 /lpf (0-5); Color Urine Yellow; Epithelial Cell Urine Auto 0-5 /lpf (0-5); Glucose Urine UA Negative (Negative); Ketones Urine Negative (Negative); Leukocyte Esterase Urine Negative (Negative); Nitrite Urine Negative (Negative); Protein Urine Trace (Negative); RBC Urine Automated 0-4 /hpf (0-4); Specific Gravity Urine 1.024 (1.000-1.030); Urobilinogen Urine Negative (Negative); WBC Urine Automated 0 /hpf (0-5); pH Urine 5.5 (4.5-7.5)
[2022-11-23 00:24] LABS: Base Excess VBG 9.7 mEq/L; HCO3 VBG 38 mmol/L; Oxygen Saturation VBG < 60.0 %; PCO2 VBG 67 mmHg (38-50); PO2 VBG 30 mmHg; pH VBG 7.36 (7.36-7.41)
[2022-11-23 00:57] LABS: Amphetamines+Metham, Urine Neg (Neg); Barbiturates, Urine Neg (Neg); Benzodiazepine, Urine Neg (Neg); Cocaine, Urine Neg (Neg); MDMA (Ecstacy), Urine Neg (Neg); Methadone, Urine Neg (Neg); Opiate, Urine Neg (Neg); Phencyclidine, Urine Neg (Neg)
[2022-11-23 03:54] LABS: HCO3 VBG 35 mmol/L; Oxygen Saturation VBG < 60.0 %; PCO2 VBG 69 mmHg (38-50); PO2 VBG 33 mmHg; pH VBG 7.31 (7.36-7.41)
[2022-11-23 04:03] LABS: Basophils # (auto) 0.07 K/uL (0-0.2); Eosinophils # (auto) 0.27 K/uL (0-0.50); Eosinophils % (auto) 3.8 %; Hematocrit (blood only) 45.3 % (42.0-52.0); Hemoglobin 15.2 g/dl (14.0-18.0); Immature Granulocytes # (auto) 0.04 K/uL (0.01-0.20); Immature Granulocytes % (auto) 0.6 %; Mean Corpuscular Hemoglobin 32.3 pg (25.0-34.0); Mean Corpuscular Hgb Conc 33.6 g/dL (32.0-36.0); Mean Corpuscular Volume 96.4 fL (80.0-100.0); Mean Platelet Volume 9.4 fL (9.4-12.4); Monocytes # (auto) 0.96 K/uL (0.11-0.59); Monocytes % (auto) 13.4 %; Neutrophils # (auto) 4.05 K/uL (1.40-6.50); Neutrophils % (auto) 56.2 %; Platelet Count 197 K/uL (130-400); RDW Coefficient of Variation 14.4 % (11.5-14.5); RDW Standard Deviation 51.6 fL (36.4-46.3); White Blood Count 7.19 K/ul (4.8-10.8)
[2022-11-23 04:19] LABS: Albumin Globulin Ratio 1.4 (0.9-2); Albumin Level 3.9 gm/dl (3.4-5.0); Bilirubin,Total 1.3 mg/dl (0.2-1.0); Calcium 9.2 mg/dl (8.6-10.3); Creatinine Clr Calc Pharmacy 76.2 ml/min; Est GFR (African American) 87.4 ml/min; Est GFR (Non-African American) 75.4 ml/min; Globulin 2.7 gm/dl (2.5-4.0); Magnesium 1.8 mg/dl (1.7-2.4); Phosphorus 3.4 mg/dl (2.5-4.9); Potassium 4.3 mmol/L (3.5-5.1); Total Protein 6.6 gm/dl (6.0-8.3)
[2022-11-23] MEDS: CHECK fentaNYL PATCH PLACEMENT SCH ×2 (08:38→14:39)
[2022-11-23] MEDS: METOPROLOL TARTRATE 25 MG TAB PO SCH ×2 (08:38→20:48)
[2022-11-23 08:54] LABS: Base Excess VBG 9.1 mEq/L; HCO3 VBG 38 mmol/L; Oxygen Saturation VBG < 60.0 %; PCO2 VBG 72 mmHg (38-50); PO2 VBG 23 mmHg; pH VBG 7.33 (7.36-7.41)
[2022-11-23 11:07] LABS: Base Excess ABG 5.3 mEq/L (-9-1.8); HCO3 ABG 32 mmol/L (19-24); Oxygen Saturation ABG 95.7 % (90-95); PCO2 ABG 54 mmHg (35-46); PO2 ABG 71 mmHg (80-95); pH ABG 7.38 (7.35-7.45)
[2022-11-23 11:10] LABS: A calco-baum cmplx NotReported Not Detected (NotDetected); Bact fragilis Not Reported Not Detected (NotDetected); C auris Not Reported Not Detected (NotDetected); Calbicans Not Reported Not Detected (NotDetected); Candida glabrata Not Reported Not Detected (NotDetected); Candida krusei Not Reported Not Detected (NotDetected); Cneoformans/gatti Not Reported Not Detected (NotDetected); Cparapsilosis Not Reported Not Detected (NotDetected); Ctropicalis Not Reported Not Detected (NotDetected); E cloacae compx Not Reported Not Detected (NotDetected); Efaecalis Not Reported Not Detected (NotDetected); Efaecium Not Reported Not Detected (NotDetected); Enterobacterales Not Reported Not Detected (NotDetected); Escherichia coli Not Reported Not Detected (NotDetected); H influenzae Not Reported Not Detected (NotDetected); K aerogenes Not Reported Not Detected (NotDetected); Koxytoca Not Reported Not Detected (NotDetected); Kpneumoniae grp Not Reported Not Detected (NotDetected); Lmonocyt Not Reported Not Detected (NotDetected); N meningitidis Not Reported Not Detected (NotDetected); P aeruginosa Not Reported Not Detected (NotDetected); Proteus spp Not Reported Not Detected (NotDetected); Salmonella spp Not Reported Not Detected (NotDetected); Smarcescens Not Reported Not Detected (NotDetected); Staph lugdunensis Not Reported Not Detected (NotDetected); Staph spp. Not Reported DETECTED (NotDetected); Staphaureus Not Reported Not Detected (NotDetected); Staphepi Not Reported DETECTED (NotDetected); Staphylococcus spp. DETECTED (NotDetected); Stenmaltophilia Not Reported Not Detected (NotDetected); Strep agal(GrpB) Not Reported Not Detected (NotDetected); Strep pneum Not Reported Not Detected (NotDetected); Strep pyog (GrpA) Not Reported Not Detected (NotDetected); Strep spp Not Reported Not Detected (NotDetected); mecAC Resistant Gene Not Detected (NotDetected)
[2022-11-23 11:11] LABS: Allen Test Pos (Pos)
[2022-11-23 11:24] LABS: Staphylococcus epidermidis DETECTED (NotDetected)
[2022-11-23] MEDS ORDERED: VANCOMYCIN CONSULT ACTIVE PRN (11:36)
[2022-11-23] MEDS ORDERED: VANCOMYCIN HCL 2,000 MG in SODIUM CHLORIDE 0.9% 500 ML IV ONE (12:00)
--- NOTE | 2022-11-23 12:40 | Hospitalist Progress Note ---
Date of Service November 23, 2022 Assessment & Plan (1) Acute confusion: Plan: Metabolic encephalopathy, POA, resolved - likely secondary to hypercarbia/acute resp failure and possible bacteremia -Blood cultures growing gram-positive cocci in chains -We will empirically start IV vancomycin (2) Positive blood culture: Plan: Blood cultures growing gram-positive cocci in chains, source is uncertain We will repeat blood cultures Start empiric IV vancomycin. Patient remains afebrile. (3) Acute respiratory failure with hypoxia and hypercarbia: Plan: Acute Hypoxic Repository Failure with Hypoxia, Hypercarbia and Respiratory Acidosis - Back at baseline mental status after BiPap until acidosis/hypercarbia resolves - Continue continuous BiPaP - q4 VBG (4) Acute respiratory acidosis: Plan: Secondary to CO2 retention We will repeat ABG Continue BiPAP. (5) History of paroxysmal supraventricular tachycardia: Plan: History of Paroxysmal SVT - continue metoprolol (6) B12 deficiency: Plan: B12 Def - continue B12 (7) Chronic pain: Plan: Chronic pain/Depression - Secondary to back pain -Continue Cyclobenzaprine, Cymbalta, Pramipexole -Fentanyl patch, new patched placed this morning prior to admission. Will replace. Plan Dispo: Continue hospitalization Diet: Full VTE Prophylaxis: Lovenox Code: Full Admission and Anticipated Discharge Date Admission Date: November 22, 2022 Subjective Patient seen and examined, still on BiPAP, but states shortness of breath is improved, Review of Systems Review of Systems: All systems reviewed are negative, apart from the ones contained in the history. Physical Exam Physical Exam: The patient is awake, alert and oriented 3, well developed and well nourished, normocephalic and atraumatic, and BiPAP HEENT--PERRL, EOMI, mucous membranes and oropharynx mildly dry Neck--supple. No JVD. No bruits. Thyroid normal, trachea midline, no adenopathy. Heart--normal S1 and S2. No murmurs, rubs or gallops. Lungs--clear bilaterally, no respiratory distress, no accessory muscle use. Abdomen--normal bowel sounds and soft. Mild epigastric and left sided abdominal pain Extremities--no cyanosis or clubbing. No edema. Dermatologic--normal skin turgor, normal color, no abnormal lymph nodes, no rash. Neurologic--cranial nerves II through XII grossly intact. Rheumatologic--normal range of motion. Psychiatric--normal affect. Results & Data Results & Data Vital Signs (Past 12 Hours) Vital Signs Temp Pulse Resp BP Pulse Ox O2 Del Method O2 Flow Rate 11/23/22 10:35 97.7 F 64 21 130/77 92 Room Air 11/23/22 07:38 98.2 F 56 L 23 126/74 93 BiPAP 11/23/22 03:46 97.7 F 52 L 22 134/77 96 BiPAP 3 11/23/22 02:03 14 96 PG Care Time/CCT Total # of Minutes Spent Total Time Spent with Patient: Total time spent is greater than 50% in coordination of care (as documented) at patient's floor/unit and/or counseling patient: Coding Level of Care Code 48517 SUB INP/OBS CARE 2/35MIN Diagnoses Acute confusion R41.0 Positive blood culture R78.81 Acute respiratory failure with hypoxia and hypercarbia J96.01; J96.02 Acute respiratory acidosis J96.02 History of paroxysmal supraventricular tachycardia Z86.79 B12 deficiency E53.8 Chronic pain G89.29 Time Spent (min) 35
[2022-11-23 12:43] LABS: Base Excess VBG 6.6 mEq/L; HCO3 VBG 35 mmol/L; Oxygen Saturation VBG < 60.0 %; PCO2 VBG 66 mmHg (38-50); PO2 VBG 27 mmHg; pH VBG 7.33 (7.36-7.41)
--- NOTE | 2022-11-23 14:28 | Pharmacy Report ---
Pharmacy PK ABX Note - Date of Service November 23, 2022 - Assessment and Plan Assessment 72 year old M receiving Vancomycin for treatment of Bacteremia. Pertinent microbiologic data includes: Preliminary blood culture 1/2 growing Staph species. Day #1 of antimicrobial therapy. Plan Vancomycin * Loading dose: 2000 mg IV x 1 * Maintenance dose: 1000 mg IV every 12 hours * Regimen is predicted to achieve target AUC/MISTY of 400-600 mg/L.hr * Since preliminary ID does not indicate MRSA will wait to see if therapy will continue before ordering a level. Pharmacy will continue to follow and will adjust dose/frequency as necessary. Thank you. Pharmacy has transitioned to AUC monitoring for vancomycin. AUC/MISTY is the preferred PK/PD target and is associated with decreased risk of nephrotoxicity compared to traditional trough targets.
[2022-11-23 15:43] LABS: HCO3 VBG 35 mmol/L; Oxygen Saturation VBG < 60.0 %; PCO2 VBG 67 mmHg (38-50); PO2 VBG 19 mmHg; pH VBG 7.33 (7.36-7.41)
[2022-11-23] MEDS: VANCOMYCIN HCL 1,000 MG in SODIUM CHLORIDE 0.9% 250 ML IV SCH (19:51)
[2022-11-23 20:31] LABS: Base Excess VBG 6.8 mEq/L; HCO3 VBG 34 mmol/L; Oxygen Saturation VBG 70.5 %; PCO2 VBG 57 mmHg (38-50); PO2 VBG 41 mmHg; pH VBG 7.38 (7.36-7.41)
[2022-11-23] MEDS: PANTOprazole 40 MG TAB PO SCH (20:47)
[2022-11-23] MEDS: CHOLECALCIFEROL 1,000 UNITS 25 MCG TAB PO SCH (20:47)
[2022-11-23] MEDS: ASPIRIN 81 MG ECTAB PO SCH (20:47)
[2022-11-23] MEDS: CYCLOBENZAPRINE HCL 10 MG TAB PO SCH (20:48)
[2022-11-23] MEDS: PRAMIPEXOLE DIHYDROCHLO 0.5 MG TAB PO SCH (20:48)
[2022-11-23] MEDS: PRAVASTATIN SOD 20 MG TAB PO SCH (20:48)
[2022-11-23] MEDS: CYANOCOBALAMIN (B-12) 500 MCG TABLET PO SCH (20:48)
[2022-11-23] MEDS: ENOXAPARIN INJ 40 MG/0.4 ML SYR SQ SCH (20:48)
[2022-11-24] MEDS: CHECK fentaNYL PATCH PLACEMENT SCH ×2 (00:37→08:00)
[2022-11-24 00:42] LABS: Base Excess VBG 8.8 mEq/L; HCO3 VBG 37 mmol/L; Oxygen Saturation VBG < 60.0 %; PCO2 VBG 67 mmHg (38-50); PO2 VBG 28 mmHg; pH VBG 7.35 (7.36-7.41)
[2022-11-24 02:15] LABS: Hematocrit (blood only) 43.2 % (42.0-52.0); Hemoglobin 14.8 g/dl (14.0-18.0); Mean Corpuscular Hemoglobin 32.7 pg (25.0-34.0); Mean Corpuscular Hgb Conc 34.3 g/dL (32.0-36.0); Mean Corpuscular Volume 95.4 fL (80.0-100.0); Mean Platelet Volume 9.9 fL (9.4-12.4); Platelet Count 209 K/uL (130-400); RDW Coefficient of Variation 14.1 % (11.5-14.5); Red Blood Count 4.53 M/uL (4.70-6.10); White Blood Count 6.92 K/ul (4.8-10.8)
[2022-11-24 02:28] LABS: BUN Creatinine Ratio 14.2 (10-20); Calcium 9.2 mg/dl (8.6-10.3); Creatinine Clr Calc Pharmacy 64.4 ml/min; Est GFR (African American) 70.1 ml/min; Est GFR (Non-African American) 60.5 ml/min; Potassium 4.2 mmol/L (3.5-5.1)
[2022-11-24] MEDS: VANCOMYCIN HCL 1,000 MG in SODIUM CHLORIDE 0.9% 250 ML IV SCH (08:04)
[2022-11-24] MEDS: METOPROLOL TARTRATE 25 MG TAB PO SCH (09:37)
--- NOTE | 2022-11-24 12:59 | Discharge Summary ---
Date of Service November 24, 2022 Admission HPI Per Admitting Provider 72 year old male with a past medical history of BPH, Depression, GERD, CHITRA, restrictive lung disease and chronic hypercarbic, chronic back pain, HTN, paroxysmal SVT presenting with altered mental status. He was at a doctors appointment at the [place] this afternoon with his . When he went to get in the car he became agitated and was doing things that were out of the normal for him. states that he was tapping and reaching for things in the glove box. Similar presentation to when he has been hypercarbic in the past. He has not had any incidents like this since he started using BiPap overnight and prior to that he only had episodes of confusion overnight. His also notes that he became diaphoretic. No recent illness, has been in his normal state of health up until this afternoon. Denies headache, vision changes, chest pain, cough, weakness. He uses 3L of O2 at night and throughout the day prn. Follows with Dr. King for restrictive lung disease due to elevated hemidiaphragm with hypercarbic respira tory failure.Hypercarbic likely secondary to pain medications and sleep disordered breathing/obesity hypoventilation syndrome. ED Coarse Significant for: VBG a pH= 7.26, respiratory acidosis and hypercarbic. Head CT negative. CXR negative. Was hypoxic with an SpO2= 87 upon arrival. Started on BiPaP and since diaphoresis and confusion have both resolved. states that he is at his baseline. Principal Diagnosis Acute hypoxic and hypercapnic respiratory failure Discharge Exam The patient is awake, alert and oriented 3, well developed and well nourished, normocephalic and atraumatic, and BiPAP HEENT--PERRL, EOMI, mucous membranes and oropharynx mildly dry Neck--supple. No JVD. No bruits. Thyroid normal, trachea midline, no adenopathy. Heart--normal S1 and S2. No murmurs, rubs or gallops. Lungs--clear bilaterally, no respiratory distress, no accessory muscle use. Abdomen--normal bowel sounds and soft. Mild epigastric and left sided abdominal pain Extremities--no cyanosis or clubbing. No edema. Dermatologic--normal skin turgor, normal color, no abnormal lymph nodes, no rash. Neurologic--cranial nerves II through XII grossly intact. Rheumatologic--normal range of motion. Psychiatric--normal affect. Discharge Data Allergies Allergy/AdvReac Type Severity Reaction Status Date / Time bee venom protein (honey bee) Allergy Severe EXCESSIVE Verified 11/22/22 18:30 SWELLING AT SITE sulfamethoxazole Allergy Severe TONGUE Verified 11/22/22 18:30 SWELLS, WHITE BLISTERS IN MOUTH. trimethoprim Allergy Severe TONGUE Verified 11/22/22 18:30 SWELLS, WHITE BLISTERS IN MOUTH. adhesive Allergy Intermediate SKIN Verified 11/22/22 18:30 IRRITATION morphine AdvReac Intermediate PROJECTILE Verified 11/22/22 18:30 VOMITING Consultations 11/22/22 18:38 ED Decision to Admit Stat Ordered Studies 11/22/22 16:14 CT head/brain wo con Stat Hospital Course (1) Acute confusion: Metabolic encephalopathy, POA, resolved - likely secondary to hypercarbia/acute resp failure -Now resolved (2) Positive blood culture: Blood cultures growing gram-positive cocci in chains, bio fire shows evidence of Staph epidermidis, most likely normal skin sarah contamination Repeat cultures negative, will stop IV antibiotics. (3) Acute respiratory failure with hypoxia and hypercarbia: Acute Hypoxic Repository Failure with Hypoxia, Hypercarbia and Respiratory Acidosis - Back at baseline mental status after BiPap until acidosis/hypercarbia resolves - Continue continuous BiPaP - q4 VBG (4) Acute respiratory acidosis: Secondary to CO2 retention We will repeat ABG Continue BiPAP. (5) History of paroxysmal supraventricular tachycardia: History of Paroxysmal SVT - continue metoprolol (6) B12 deficiency: B12 Def - continue B12 (7) Chronic pain: Chronic pain/Depression - Secondary to back pain -Continue Cyclobenzaprine, Cymbalta, Pramipexole -Fentanyl patch, new patched placed this morning prior to admission. Will replace. Plan Dispo: Continue hospitalization Diet: Full VTE Prophylaxis: Lovenox Code: Full Total Time Total Time Spent Total Time Spent (In Minutes): 35 Discharge Plan Discharge Items Patient Disposition: Home - Self-Care Reason For Visit: RESPITORY FAILURE Discharge Diagnosis: hypercapneic resp failure Activity: Resume your previous activity Non-emergency contact: Primary Care Provider and Nursing Teacher Call non-emergency contact if: you have any medication questions and your symptoms worsen Follow-up/Referrals: [facility] [Primary Care Provider] - Diet: Regular Addtl Attending Provider Instructions: please make sure you wear your BIPAP regularly at night Make appointment to follow up with your tufter hand Pending Studies at Discharge: No Stand-Alone Forms: My [facility] [address], Smoking Cessation Medications and DC Order Prescriptions: Continued cyclobenzaprine 10 mg tablet 10 mg PO HS ondansetron 4 mg tablet,disintegrating 4 mg PO Q8H PRN (Reason: Nausea And Vomiting) mecobalamin (vitamin B12) 1,000 mcg tablet,chewable 1,000 mcg PO HS pramipexole 0.5 mg tablet 0.5 mg PO HS Qty: 20 0RF Rx Instructions: 1 tab po at bedtime, may increase to BID prn. cholecalciferol (vitamin D3) 25 mcg (1,000 unit) capsule 2,000 units PO HS sildenafil 100 mg tablet 100 mg PO DAILY PRN (Reason: sexual activity) Qty: 7 3RF Rx Instructions: Administer 30 minutes to 4 hours before activity. omeprazole 20 mg capsule,delayed release(DR/EC) 20 mg PO HS dicyclomine 10 mg capsule 10 mg PO BID PRN (Reason: ABD PAIN) aspirin [Alice Low Dose Aspirin] 81 mg tablet,delayed release (DR/EC) 81 mg PO HS metoprolol tartrate 25 mg tablet 12.5 mg PO BID pravastatin 40 mg Tablet 20 mg PO HS fentanyl 75 mcg/hr patch 72 hour 1 patch transdermal Q48H Qty: 1 0RF Discharge Orders: Discharge Order (Routine); Ordered 11/24/22 Ordered By: Moi Chang Admission Data Admit Date/Time: 11/22/22 19:08 Attending Provider: Moi Chang Admit Provider: Areli Christensen Primary Care Provider: [facility] Other Providers: Jr Gonzalez Other Interventions: Discharge Summary Assessment (RN) Last Done: 11/24/22 10:31 Coding Level of Care Code 56115 INP/OBS DISCH >30 MIN Diagnoses Acute confusion R41.0 Positive blood culture R78.81 Acute respiratory failure with hypoxia and hypercarbia J96.01; J96.02 Acute respiratory acidosis J96.02 History of paroxysmal supraventricular tachycardia Z86.79 B12 deficiency E53.8 Chronic pain G89.29 Time Spent (min) 35
--- NOTE | 2022-11-24 19:53 | Electrocardiogram Report ---
Test Reason : Blood Pressure : / mmHG Vent. Rate : 104 BPM Atrial Rate : 104 BPM P-R Int : 196 ms QRS Dur : 094 ms QT Int : 344 ms P-R-T Axes : 049 -17 035 degrees QTc Int : 452 ms Sinus tachycardia Minimal voltage criteria for LVH, may be normal variant Borderline ECG When compared with ECG of 28-AUG-2022 01:48, No significant change was found Confirmed by Jefferson Ambrocio ([id number]) on 11/24/2022 7:52:52 PM Referred By: Confirmed By:Jefferson Ambrocio
== END 2022-11-24 11:27 | disposition home or self-care (01) | DRG 189 ==
LOC: ED 15:55 → 2S 19:08 → SUATTDRO 19:08 → 2S 21:10

== ENCOUNTER 2022-12-28 20:39 | Inpatient (IN) ==
--- NOTE | 2022-12-28 20:54 | Emergency Department Note ---
Impression & Plan Acute exacerbation of chronic obstructive pulmonary disease, Acute respiratory failure with hypoxia and hypercarbia, Acute respiratory acidosis, Acute alteration in mental status, Headache ED Provider Note NAME: TIM JAVIER AGE: 72 SEX: M : 1950 ARRIVES VIA: Ambulance INFORMANT: Patient, EMS ED PROVIDER(S): Reg Magallanes DO CHIEF COMPLAINT: Altered mental status HPI: The patient is a 72-year-old male who presented to the emergency department for an evaluation of altered mental status. The patient was found to be hypoxic with pulse ox of 74%. He has had slow respirations. He complains of a headache. There is no reported fall nausea or vomiting. The patient was placed on supplemental oxygen. He was given Toradol prior to arrival for the headache. ROS: See above HPI for pertinent positives & negatives. A total of 10 systems reviewed and were otherwise negative. PAST MEDICAL HISTORY: See Below PAST SURGICAL HISTORY: See Below FAMILY HISTORY: See Below SOCIAL HISTORY: See Below HOME MEDICATIONS: See Below ALLERGIES: See Below VITALS: See Below PHYSICAL EXAMINATION: GENERAL: The patient is listless but responds to questions. He is awake to verbal commands. EYES: The conjunctivae are clear. The pupils are round and reactive. EARS, NOSE, MOUTH AND THROAT: The nose is without any evidence of any deformity. NECK: The neck is nontender and supple. RESPIRATORY: Diminished breath sounds are noted throughout. There is no tachypnea or conversational dyspnea. CARDIOVASCULAR: Regular rate and rhythm noted there no murmurs rubs or gallops normal S1 normal S2. GASTROINTESTINAL: The abdomen is soft. Abdomen is nontender. MUSCULOSKELETAL/EXTREMITIES: There is no evidence of gross deformity full range of motion is noted in the hips and shoulders. SKIN: There is no obvious evidence of any rash. There are no petechiae, pallor or cyanosis noted. NEUROLOGIC: Patient is awake to verbal commands. He is oriented to person place and situation. Patient's strength was symmetric. MEDICAL DECISION MAKING: The patient is a 72-year-old male who presented to the emergency department for an evaluation of difficulty breathing hypoxia and altered mental status. The patient had a headache prior to arrival. He was treated with Toradol by the prehospital personnel. The patient has no focal neurologic deficits. His condition continued improve while he was on oxygen. I discussed the patient's laboratory and radiographic studies with him. He was found to have CO2 retention which may explain the patient's altered mental status. I discussed the patient's condition with the on-call [facility] group. They have agreed to evaluate the patient in the emergency department for further management and disposition. The patient was placed on BiPAP. Triage Nursing notes reviewed. Prior medical records reviewed Vital Signs: reviewed and remarkable for elevated blood pressure. Differential diagnosis: Infection, hypoglycemia, electrolyte abnormalities, overdose, toxicologic, cardiac sources, intracerebral event, neurologic, trauma, as well as other pathologies. ER treatment provided: See below Diagnostics interpreted by me: ECG: EKG was obtained in the emergency department. My interpretation is normal sinus rhythm at 96 bpm. There is no ectopy. There is no acute ST segment abnormalities noted. This was compared to a tracing from November 22, 2022. No changes were noted Cardiac Monitoring: An order was placed for continuous cardiac monitoring. The monitor shows a rate of 91 bpm with sinus rhythm. Laboratory studies: As stated above and show below. Imaging studies: See below. Radiographic imaging was reviewed by myself Consultation(s): I discussed this case with Dr. Paz who is on-call for the [facility] hospitalist group. ED COURSE: Procedures: none Critical Care: I have personally spent greater than 45 minutes of critical care time in the direct management of this patient. This includes bedside care, interpretation of diagnostic studies, and testing, discussion with consultants, patient, and family members, and other required patient management activities. This 45 minutes is in excess of all separately billable procedures. Past Med/Surg History Medical History Accidental overdose Acute opioid withdrawal BPH (benign prostatic hyperplasia) Chronic back pain Depression Diaphragmatic disorder GERD (gastroesophageal reflux disease) History of acute renal failure Hypertension Iron deficiency Non-ST elevation [place] (NSTEMI) Pituitary dysfunction Pneumonia Prostatitis Recurrent pneumonia Restrictive lung disease RLS (restless legs syndrome) Severe obstructive sleep apnea SVT (supraventricular tachycardia) Surgical History History of ankle surgery Britton reconstruction-right side History of carpal tunnel release History of mandibular surgery History of surgery mass removed from left side of clavicle Status post trigger finger release Family History Mother Cancer Hypertension Myasthenia gravis Breast cancer Son Environmental allergies Asthma Sister Gallbladder disease Father Alzheimer disease Grandmother (Maternal) Colorectal cancer Family/Other Myocardial infarction Other No family history of bleeding disorder Denies family history of Ovarian cancer Prostate cancer Social History Smoking Status: Never smoker Tobacco Type: Cigarettes Second Hand Exposure: No; Do You Dip or Chew Tobacco: No; Hx Alcohol Use: No Hx Substance Use: No Preferred Language: Yakut Communication Ability: Effective Audiology Director Required: No Beliefs That Will Affect Care: None marital status: Current Living Situation: Spouse current occupational status: retired Feels Safe at Home: Yes Childhood Exposure to Second-Hand Smoke: Yes Dental Care, Regularly: No Physical Activity Frequency: Does not Exercise Seatbelt Use: never Sunscreen Use: Yes Assistive Devices: Cane, Scooter/Electric Scooter and Walker Allergies Allergies Allergy/AdvReac Type Severity Reaction Status Date / Time bee venom protein (honey bee) Allergy Severe EXCESSIVE Verified 12/20/22 11:50 SWELLING AT SITE sulfamethoxazole Allergy Severe TONGUE Verified 12/20/22 11:50 SWELLS, WHITE BLISTERS IN MOUTH. trimethoprim Allergy Severe TONGUE Verified 12/20/22 11:50 SWELLS, WHITE BLISTERS IN MOUTH. adhesive Allergy Intermediate SKIN Verified 12/20/22 11:50 IRRITATION morphine AdvReac Intermediate PROJECTILE Verified 12/20/22 11:50 VOMITING Home Meds Home Medications Medication Instructions Recorded Confirmed cyclobenzaprine 10 mg tablet 10 mg PO HS 02/28/19 12/28/22 omeprazole 20 mg capsule,delayed 20 mg PO HS 02/28/19 12/28/22 release ondansetron 4 mg disintegrating 4 mg PO Q8H PRN Nausea And Vomiting 04/10/19 12/28/22 tablet dicyclomine 10 mg capsule 10 mg PO BID PRN ABD PAIN 02/12/20 12/28/22 aspirin 81 mg tablet,delayed 81 mg PO HS 02/22/22 12/28/22 release (Alice Low Dose Aspirin) mecobalamin (vitamin B12) 1,000 1,000 mcg PO HS 07/26/22 12/28/22 mcg chewable tablet cholecalciferol (vitamin D3) 25 1,000 unit PO HS 12/04/22 12/28/22 mcg (1,000 unit) capsule pravastatin 40 mg tablet 20 mg PO HS 12/04/22 12/28/22 sildenafil 100 mg tablet 100 mg PO DAILY PRN sexual activity 12/04/22 12/28/22 fluticasone propionate 50 1 spray intranasal BID PRN 12/28/22 12/28/22 mcg/actuation nasal Congestion spray,suspension (Flonase Allergy Relief) metoprolol succinate 25 mg 25 mg PO HS 12/28/22 12/28/22 tablet,extended release 24 hr Previous Rx's Medication Instructions Recorded pramipexole 0.5 mg tablet 0.5 mg PO HS #20 tabs 07/24/22 fentanyl 75 mcg/hr transdermal 1 patch transdermal Q48H #1 ea 08/30/22 patch testosterone (AndroGel) 2 pump topical HS #75 grams 12/07/22 Results & Data (ED) Vital Signs Vital Signs - 24 hr 12/28/22 20:45 12/28/22 20:45 12/28/22 20:45 Temperature 36.7 C Temperature Source Oral Pulse Rate 92 H Pulse Rate from SpO2 Sensor Respiratory Rate 12 Respiratory Effort / Characteristics Non-Labored Respiratory Depth Normal Blood Pressure 134/92 Blood Pressure Mean 106 Pulse Oximetry 92 92 Oxygen Delivery Method Room Air Room Air Nasal Cannula Nasal Cannula Oxygen Flow Rate 0 Sepsis Recent Fever Within 48 Hours No Sepsis New/Unexplained Change in Mental Status No Sepsis Action Taken by Nursing No Action Required Oxygen Flow Rate - Titration 3 Pulse Oximetry Post Tiitration 96 12/28/22 21:30 12/28/22 22:29 12/28/22 21:00 Temperature Temperature Source Pulse Rate 98 H Pulse Rate from SpO2 Sensor Respiratory Rate Respiratory Effort / Characteristics Non-Labored Non-Labored Respiratory Depth Normal Normal Blood Pressure Blood Pressure Mean Pulse Oximetry Oxygen Delivery Method BiPAP Oxygen Flow Rate Sepsis Recent Fever Within 48 Hours Sepsis New/Unexplained Change in Mental Status Sepsis Action Taken by Nursing Oxygen Flow Rate - Titration Pulse Oximetry Post Tiitration 12/28/22 21:01 12/28/22 21:10 12/28/22 21:17 Temperature Temperature Source Pulse Rate 94 H 95 H Pulse Rate from SpO2 Sensor 96 H 97 H 99 H Respiratory Rate 14 15 18 Respiratory Effort / Characteristics Respiratory Depth Blood Pressure Blood Pressure Mean Pulse Oximetry 93 94 91 Oxygen Delivery Method Nasal Cannula Oxygen Flow Rate 3 Sepsis Recent Fever Within 48 Hours Sepsis New/Unexplained Change in Mental Status Sepsis Action Taken by Nursing Oxygen Flow Rate - Titration Pulse Oximetry Post Tiitration 12/28/22 21:17 12/28/22 21:20 12/28/22 21:30 Temperature Temperature Source Pulse Rate 93 H 92 H Pulse Rate from SpO2 Sensor 94 H 92 H Respiratory Rate 16 22 Respiratory Effort / Characteristics Respiratory Depth Blood Pressure 130/111 H Blood Pressure Mean 117 Pulse Oximetry 97 97 Oxygen Delivery Method Oxygen Flow Rate Sepsis Recent Fever Within 48 Hours Sepsis New/Unexplained Change in Mental Status Sepsis Action Taken by Nursing Oxygen Flow Rate - Titration Pulse Oximetry Post Tiitration 12/28/22 21:40 12/28/22 21:50 12/28/22 22:00 Temperature Temperature Source Pulse Rate 88 91 H 86 Pulse Rate from SpO2 Sensor 87 92 H 94 H Respiratory Rate 21 18 17 Respiratory Effort / Characteristics Respiratory Depth Blood Pressure Blood Pressure Mean Pulse Oximetry 95 97 95 Oxygen Delivery Method Oxygen Flow Rate Sepsis Recent Fever Within 48 Hours Sepsis New/Unexplained Change in Mental Status Sepsis Action Taken by Nursing Oxygen Flow Rate - Titration Pulse Oximetry Post Tiitration 12/28/22 22:15 12/28/22 22:15 12/28/22 22:20 Temperature Temperature Source Pulse Rate 91 H Pulse Rate from SpO2 Sensor 109 H 90 Respiratory Rate 22 Respiratory Effort / Characteristics Respiratory Depth Blood Pressure 151/90 H Blood Pressure Mean 110 Pulse Oximetry 88 L 100 Oxygen Delivery Method Room Air BiPAP Oxygen Flow Rate Sepsis Recent Fever Within 48 Hours Sepsis New/Unexplained Change in Mental Status Sepsis Action Taken by Nursing Oxygen Flow Rate - Titration Pulse Oximetry Post Tiitration Home Medications Current Medication List: was personally reviewed by me Laboratory Data Attestation: I reviewed the patient's lab results. 12/28/22 20:55 12/28/22 20:55 Lab Results 12/28/22 12/28/22 12/28/22 Range/Units 20:55 20:55 20:55 WBC 8.93 (4.8-10.8) K/ul RBC 4.93 (4.70-6.10) M/uL Hgb 15.9 (14.0-18.0) g/dl Hct 47.9 (42.0-52.0) % MCV 97.2 (80.0-100.0) fL MCH 32.3 (25.0-34.0) pg MCHC 33.2 (32.0-36.0) g/dL RDW Std Deviation 43.4 (36.4-46.3) fL RDW Coeff of Netta 12.0 (11.5-14.5) % Plt Count 239 (130-400) K/uL MPV 9.4 (9.4-12.4) fL Immature Gran % (Auto) 0.8 % Neut % (Auto) 73.0 % Lymph % (Auto) 15.6 % Person % (Auto) 8.6 % Eos % (Auto) 1.7 % Baso % (Auto) 0.3 % Neut # (Auto) 6.52 H (1.40-6.50) K/uL Lymph # (Auto) 1.39 (1.20-3.40) K/uL Person # (Auto) 0.77 H (0.11-0.59) K/uL Eos # (Auto) 0.15 (0.00-0.50) K/uL Baso # (Auto) 0.03 (0.00-0.20) K/uL Immature Gran # (Auto) 0.07 (0.01-0.20) K/uL PT 11.5 (9.0-12.0) Seconds INR 1.1 (0.9-1.1) APTT 22.5 (21.0-31.0) Seconds PTT Ratio 0.8 VBG pH (7.36-7.41) VBG pCO2 (38-50) mmHg VBG pO2 mmHg VBG HCO3 mmol/L VBG O2 Saturation % VBG Base Excess mEq/L Sodium 138 (136-145) mmol/L Potassium 4.4 (3.5-5.1) mmol/L Chloride 100 (98-107) mmol/L Carbon Dioxide 34 H (21-32) mmol/L Anion Gap 4 (3-11) BUN 15 (6-23) mg/dl Creatinine 1.22 (0.6-1.4) mg/dl Est Cr Clr Drug Dosing 64.6 ml/min Est GFR ( Amer) 68.7 ml/min Est GFR (Non-Af Amer) 59.3 ml/min BUN/Creatinine Ratio 12.3 (10-20) Glucose 124 H (70-99(Fasting)) mg/dl Lactate (0.4-2.0) mmol/L Calcium 9.0 (8.6-10.3) mg/dl Magnesium 2.0 (1.7-2.4) mg/dl Total Bilirubin 1.0 (0.2-1.0) mg/dl Direct Bilirubin TNP AST 27 (13-39) U/L ALT 17 (7-52) U/L Alkaline Phosphatase 53 (34-104) U/L Troponin I High Sens 13.9 (0-20) pg/ml Total Protein 7.4 (6.0-8.3) gm/dl Albumin 4.3 (3.4-5.0) gm/dl Procalcitonin (0-0.5) ng/ml Ethyl Alcohol mg/dL (<10.0) mg/dl Adenovirus (PCR) (NotDetected) B. pertussis DNA (PCR) (NotDetected) B.parapertussis DNA PCR (NotDetected) C. pneumoniae DNA (PCR) (NotDetected) Coronavirus OC43 (PCR) (NotDetected) Coronavirus HKU1 (PCR) (NotDetected) Coronavirus 229E (PCR) (NotDetected) SARS-CoV-2 (PCR) (NotDetected) Coronavirus NL63 (PCR) (NotDetected) Human Metapneumovir PCR (NotDetected) Influenza Type A (PCR) (NotDetected) Influenza Type B (PCR) (NotDetected) M. pneumoniae (PCR) (NotDetected) Parainfluenza 1 (PCR) (NotDetected) Parainfluenza 2 (PCR) (NotDetected) Parainfluenza 3 (PCR) (NotDetected) Parainfluenza 4 (PCR) (NotDetected) RSV (PCR) (NotDetected) Entero/Rhino (PCR) (NotDetected) 12/28/22 12/28/22 12/28/22 Range/Units 20:55 20:55 20:57 WBC (4.8-10.8) K/ul RBC (4.70-6.10) M/uL Hgb (14.0-18.0) g/dl Hct (42.0-52.0) % MCV (80.0-100.0) fL MCH (25.0-34.0) pg MCHC (32.0-36.0) g/dL RDW Std Deviation (36.4-46.3) fL RDW Coeff of Netta (11.5-14.5) % Plt Count (130-400) K/uL MPV (9.4-12.4) fL Immature Gran % (Auto) % Neut % (Auto) % Lymph % (Auto) % Person % (Auto) % Eos % (Auto) % Baso % (Auto) % Neut # (Auto) (1.40-6.50) K/uL Lymph # (Auto) (1.20-3.40) K/uL Person # (Auto) (0.11-0.59) K/uL Eos # (Auto) (0.00-0.50) K/uL Baso # (Auto) (0.00-0.20) K/uL Immature Gran # (Auto) (0.01-0.20) K/uL PT (9.0-12.0) Seconds INR (0.9-1.1) APTT (21.0-31.0) Seconds PTT Ratio VBG pH (7.36-7.41) VBG pCO2 (38-50) mmHg VBG pO2 mmHg VBG HCO3 mmol/L VBG O2 Saturation % VBG Base Excess mEq/L Sodium (136-145) mmol/L Potassium (3.5-5.1) mmol/L Chloride (98-107) mmol/L Carbon Dioxide (21-32) mmol/L Anion Gap (3-11) BUN (6-23) mg/dl Creatinine (0.6-1.4) mg/dl Est Cr Clr Drug Dosing ml/min Est GFR ( Amer) ml/min Est GFR (Non-Af Amer) ml/min BUN/Creatinine Ratio (10-20) Glucose (70-99(Fasting)) mg/dl Lactate 1.4 (0.4-2.0) mmol/L Calcium (8.6-10.3) mg/dl Magnesium (1.7-2.4) mg/dl Total Bilirubin (0.2-1.0) mg/dl Direct Bilirubin AST (13-39) U/L ALT (7-52) U/L Alkaline Phosphatase (34-104) U/L Troponin I High Sens (0-20) pg/ml Total Protein (6.0-8.3) gm/dl Albumin (3.4-5.0) gm/dl Procalcitonin < 0.05 (0-0.5) ng/ml Ethyl Alcohol mg/dL (<10.0) mg/dl Adenovirus (PCR) Not Detected (NotDetected) B. pertussis DNA (PCR) Not Detected (NotDetected) B.parapertussis DNA PCR Not Detected (NotDetected) C. pneumoniae DNA (PCR) Not Detected (NotDetected) Coronavirus OC43 (PCR) Not Detected (NotDetected) Coronavirus HKU1 (PCR) Not Detected (NotDetected) Coronavirus 229E (PCR) Not Detected (NotDetected) SARS-CoV-2 (PCR) Not Detected (NotDetected) Coronavirus NL63 (PCR) Not Detected (NotDetected) Human Metapneumovir PCR Not Detected (NotDetected) Influenza Type A (PCR) Not Detected (NotDetected) Influenza Type B (PCR) Not Detected (NotDetected) M. pneumoniae (PCR) Not Detected (NotDetected) Parainfluenza 1 (PCR) Not Detected (NotDetected) Parainfluenza 2 (PCR) Not Detected (NotDetected) Parainfluenza 3 (PCR) Not Detected (NotDetected) Parainfluenza 4 (PCR) Not Detected (NotDetected) RSV (PCR) Not Detected (NotDetected) Entero/Rhino (PCR) Not Detected (NotDetected) 12/28/22 12/28/22 Range/Units 21:08 21:32 WBC (4.8-10.8) K/ul RBC (4.70-6.10) M/uL Hgb (14.0-18.0) g/dl Hct (42.0-52.0) % MCV (80.0-100.0) fL MCH (25.0-34.0) pg MCHC (32.0-36.0) g/dL RDW Std Deviation (36.4-46.3) fL RDW Coeff of Netta (11.5-14.5) % Plt Count (130-400) K/uL MPV (9.4-12.4) fL Immature Gran % (Auto) % Neut % (Auto) % Lymph % (Auto) % Person % (Auto) % Eos % (Auto) % Baso % (Auto) % Neut # (Auto) (1.40-6.50) K/uL Lymph # (Auto) (1.20-3.40) K/uL Person # (Auto) (0.11-0.59) K/uL Eos # (Auto) (0.00-0.50) K/uL Baso # (Auto) (0.00-0.20) K/uL Immature Gran # (Auto) (0.01-0.20) K/uL PT (9.0-12.0) Seconds INR (0.9-1.1) APTT (21.0-31.0) Seconds PTT Ratio VBG pH 7.18 L (7.36-7.41) VBG pCO2 90 H (38-50) mmHg VBG pO2 42 mmHg VBG HCO3 34 mmol/L VBG O2 Saturation 60.0 % VBG Base Excess 2.3 mEq/L Sodium (136-145) mmol/L Potassium (3.5-5.1) mmol/L Chloride (98-107) mmol/L Carbon Dioxide (21-32) mmol/L Anion Gap (3-11) BUN (6-23) mg/dl Creatinine (0.6-1.4) mg/dl Est Cr Clr Drug Dosing ml/min Est GFR ( Amer) ml/min Est GFR (Non-Af Amer) ml/min BUN/Creatinine Ratio (10-20) Glucose (70-99(Fasting)) mg/dl Lactate (0.4-2.0) mmol/L Calcium (8.6-10.3) mg/dl Magnesium (1.7-2.4) mg/dl Total Bilirubin (0.2-1.0) mg/dl Direct Bilirubin AST (13-39) U/L ALT (7-52) U/L Alkaline Phosphatase (34-104) U/L Troponin I High Sens (0-20) pg/ml Total Protein (6.0-8.3) gm/dl Albumin (3.4-5.0) gm/dl Procalcitonin (0-0.5) ng/ml Ethyl Alcohol mg/dL < 10.0 (<10.0) mg/dl Adenovirus (PCR) (NotDetected) B. pertussis DNA (PCR) (NotDetected) B.parapertussis DNA PCR (NotDetected) C. pneumoniae DNA (PCR) (NotDetected) Coronavirus OC43 (PCR) (NotDetected) Coronavirus HKU1 (PCR) (NotDetected) Coronavirus 229E (PCR) (NotDetected) SARS-CoV-2 (PCR) (NotDetected) Coronavirus NL63 (PCR) (NotDetected) Human Metapneumovir PCR (NotDetected) Influenza Type A (PCR) (NotDetected) Influenza Type B (PCR) (NotDetected) M. pneumoniae (PCR) (NotDetected) Parainfluenza 1 (PCR) (NotDetected) Parainfluenza 2 (PCR) (NotDetected) Parainfluenza 3 (PCR) (NotDetected) Parainfluenza 4 (PCR) (NotDetected) RSV (PCR) (NotDetected) Entero/Rhino (PCR) (NotDetected) Administered Medications Discontinued Medications Albuterol (Albut/Ipratrop 3mg/0.5mg Neb 3 Ml Vial) 3 ml NEB NOW STA; Protocol Stop: 12/28/22 21:46 Last Admin: 12/28/22 21:58 Dose: 3 ml Documented By: KACEY Methylprednisolone (Methylprednisolone 125 Mg/2 Ml Vial) 125 mg IV NOW STA Stop: 12/28/22 21:47 Last Admin: 12/28/22 21:59 Dose: 125 mg Documented By: KACEY Ondansetron HCl (Ondansetron Inj 2 Mg/Ml 2 Ml Vial) 4 mg IV NOW STA Stop: 12/28/22 21:57 Last Admin: 12/28/22 21:59 Dose: 4 mg Documented By: KACEY Ondansetron HCl (Ondansetron Inj 2 Mg/Ml 2 Ml Vial) Confirm Administered Dose 4 mg .ROUTE .[facility] Stop: 12/28/22 21:57 Last Admin: 12/28/22 21:59 Dose: Not Given Documented By: KACEY Imaging Data Attestation: I personally reviewed and interpreted this imaging study as follows: My Impression: 1 view chest x-ray was obtained in the emergency department. My interpretation is no free air or definite infiltrate. Elevation of the right hemidiaphragm was noted. This was compared to a chest x-ray from November 22, 2022. No significant changes were noted. Radiologist's Impression: Head CT 12/28/22 20:54 Exam(s): CT HEAD Without Contrast EXAM: CT Head Without Intravenous Contrast CLINICAL HISTORY: Reason for exam: AMS, HILLIARD. TECHNIQUE: Axial computed tomography images of the head/brain without intravenous contrast. CTDI is 37.49 mGy and DLP is 625.8 mGy-cm. Automated exposure control was utilized for the study. A dose lowering technique was utilized adhering to the principles of ALARA. COMPARISON: 11/22/2022 FINDINGS: Brain: Mild periventricular white matter changes, likely related to microangiopathy. No hemorrhage. Ventricles: Unremarkable. No ventriculomegaly. Bones/joints: Unremarkable. No acute fracture. Soft tissues: Unremarkable. Sinuses: Unremarkable as visualized. No acute sinusitis. Mastoid air cells: Unremarkable as visualized. No mastoid effusion. IMPRESSION: Mild periventricular white matter changes, likely related to microangiopathy. Electronically signed by: Sathish Garcia M.D. 12/28/22 22:44 PM Discharge Plan Visit Data Chief Complaint: Altered Mental Status Stated Complaint: UNRESPONSIVE, LOW SPO2 ED Provider: Reg Magallanes Discharge Problem: Acute exacerbation of chronic obstructive pulmonary disease, Acute respiratory failure with hypoxia and hypercarbia, Acute respiratory acidosis, Acute alteration in mental status, Headache Patient Disposition: Being Evaluated by Hospitalist Forms Stand Alone Forms: My [facility] Prescriptions Prescriptions: No Action testosterone [AndroGel] 20.25 mg/1.25 gram (1.62 %) gel in metered-dose pump 2 pump topical HS Qty: 75 5RF Rx Instructions: apply 1 pump amount over max area of each upper arm and shoulder 11/27/22 PDMP queried, ok to fill - TR cyclobenzaprine 10 mg tablet 10 mg PO HS ondansetron 4 mg tablet,disintegrating 4 mg PO Q8H PRN (Reason: Nausea And Vomiting) mecobalamin (vitamin B12) 1,000 mcg tablet,chewable 1,000 mcg PO HS pramipexole 0.5 mg tablet 0.5 mg PO HS Qty: 20 0RF Rx Instructions: 1 tab po at bedtime, may increase to BID prn. sildenafil 100 mg tablet 100 mg PO DAILY PRN (Reason: sexual activity) Rx Instructions: Administer 30 minutes to 4 hours before activity. cholecalciferol (vitamin D3) 25 mcg (1,000 unit) capsule 1,000 unit PO HS omeprazole 20 mg capsule,delayed release(DR/EC) 20 mg PO HS dicyclomine 10 mg capsule 10 mg PO BID PRN (Reason: ABD PAIN) aspirin [Alice Low Dose Aspirin] 81 mg tablet,delayed release (DR/EC) 81 mg PO HS pravastatin 40 mg tablet 20 mg PO HS fentanyl 75 mcg/hr patch 72 hour 1 patch transdermal Q48H Qty: 1 0RF metoprolol succinate 25 mg tablet extended release 24 hr 25 mg PO HS fluticasone propionate [Flonase Allergy Relief] 50 mcg/actuation spray,suspens ion 1 spray intranasal BID PRN (Reason: Congestion) Rx Instructions: administer into each nostril Referrals Referrals: [facility] [Primary Care Provider] -
[2022-12-28 21:19] LABS: Basophils # (auto) 0.03 K/uL (0.00-0.20); Basophils % (auto) 0.3 %; Eosinophils # (auto) 0.15 K/uL (0.00-0.50); Eosinophils % (auto) 1.7 %; Hematocrit (blood only) 47.9 % (42.0-52.0); Hemoglobin 15.9 g/dl (14.0-18.0); Immature Granulocytes # (auto) 0.07 K/uL (0.01-0.20); Immature Granulocytes % (auto) 0.8 %; Lymphocytes # (auto) 1.39 K/uL (1.20-3.40); Lymphocytes % (auto) 15.6 %; Mean Corpuscular Hemoglobin 32.3 pg (25.0-34.0); Mean Corpuscular Hgb Conc 33.2 g/dL (32.0-36.0); Mean Corpuscular Volume 97.2 fL (80.0-100.0); Mean Platelet Volume 9.4 fL (9.4-12.4); Monocytes # (auto) 0.77 K/uL (0.11-0.59); Monocytes % (auto) 8.6 %; Neutrophils # (auto) 6.52 K/uL (1.40-6.50); Platelet Count 239 K/uL (130-400); RDW Standard Deviation 43.4 fL (36.4-46.3); Red Blood Count 4.93 M/uL (4.70-6.10); White Blood Count 8.93 K/ul (4.8-10.8)
[2022-12-28 21:27] LABS: Base Excess VBG 2.3 mEq/L; HCO3 VBG 34 mmol/L; PCO2 VBG 90 mmHg (38-50); PO2 VBG 42 mmHg; pH VBG 7.18 (7.36-7.41)
[2022-12-28 21:41] LABS: Anion Gap 4 (3-11); Blood Urea Nitrogen 15 mg/dl (6-23); Carbon Dioxide 34 mmol/L (21-32); Chloride 100 mmol/L (98-107); Potassium 4.4 mmol/L (3.5-5.1); Sodium 138 mmol/L (136-145)
[2022-12-28 21:42] LABS: Alanine Aminotransferase 17 U/L (7-52); Albumin Level 4.3 gm/dl (3.4-5.0); Alkaline Phosphatase 53 U/L (34-104); Aspartate Aminotransferase 27 U/L (13-39); BUN Creatinine Ratio 12.3 (10-20); Creatinine Clr Calc Pharmacy 64.6 ml/min; Est GFR (African American) 68.7 ml/min; Est GFR (Non-African American) 59.3 ml/min; Glucose 124 mg/dl (70-99(Fasting)); Total Protein 7.4 gm/dl (6.0-8.3); Troponin I High Sensitivity 13.9 pg/ml (0-20)
[2022-12-28] MEDS ORDERED: ALBUT/IPRATROP 3MG/0.5MG NEB 3 ML VIAL NEB STA (21:45)
[2022-12-28 21:46] LABS: INR 1.1 (0.9-1.1); Partial Thromboplastin Ratio 0.8; Partial Thromboplastin Time 22.5 Seconds (21.0-31.0); Prothrombin Time 11.5 Seconds (9.0-12.0)
[2022-12-28] MEDS ORDERED: methylPREDNISolone 125 MG/2 ML VIAL IV STA (21:46)
[2022-12-28] MEDS ORDERED: ONDANSETRON INJ 2 MG/ML 2 ML VIAL ONE (21:56)
[2022-12-28] MEDS ORDERED: ONDANSETRON INJ 2 MG/ML 2 ML VIAL IV STA (21:56)
[2022-12-28 22:04] LABS: Adenovirus PCR Not Detected (NotDetected); Bordetella parapertussis PCR Not Detected (NotDetected); Bordetella pertussis PCR Not Detected (NotDetected); Chlamydia pneumoniae PCR Not Detected (NotDetected); Coronavirus 229E PCR Not Detected (NotDetected); Coronavirus CoV-2 (COVID19)PCR Not Detected (NotDetected); Coronavirus HKU1 PCR Not Detected (NotDetected); Coronavirus NL63 PCR Not Detected (NotDetected); Coronavirus OC43PCR Not Detected (NotDetected); Human Metapneumovirus PCR Not Detected (NotDetected); Influenza A PCR Not Detected (NotDetected); Influenza B PCR Not Detected (NotDetected); Mycoplasma pneumoniae PCR Not Detected (NotDetected); Parainfluenza Virus 1 PCR Not Detected (NotDetected); Parainfluenza Virus 2 PCR Not Detected (NotDetected); Parainfluenza Virus 3 PCR Not Detected (NotDetected); Parainfluenza Virus 4 PCR Not Detected (NotDetected); Respiratory Syncytial VirusPCR Not Detected (NotDetected); Rhinovirus/Enterovirus PCR Not Detected (NotDetected)
--- NOTE | 2022-12-28 22:45 | CT Scan Report ---
Exam(s): CT HEAD Without Contrast EXAM: CT Head Without Intravenous Contrast CLINICAL HISTORY: Reason for exam: AMS, HILLIARD. TECHNIQUE: Axial computed tomography images of the head/brain without intravenous contrast. CTDI is 37.49 mGy and DLP is 625.8 mGy-cm. Automated exposure control was utilized for the study. A dose lowering technique was utilized adhering to the principles of ALARA. COMPARISON: 11/22/2022 FINDINGS: Brain: Mild periventricular white matter changes, likely related to microangiopathy. No hemorrhage. Ventricles: Unremarkable. No ventriculomegaly. Bones/joints: Unremarkable. No acute fracture. Soft tissues: Unremarkable. Sinuses: Unremarkable as visualized. No acute sinusitis. Mastoid air cells: Unremarkable as visualized. No mastoid effusion. IMPRESSION: Mild periventricular white matter changes, likely related to microangiopathy. Electronically signed by: Sathish Garcia M.D. 12/28/22 22:44 PM
[2022-12-28 23:13] LABS: iSTAT Arterial Blood Gas HCO3 32 meg/L (19-24); iSTAT Arterial Blood Gas pCO2 56 mmHg (35-46); iSTAT Arterial Blood Gas pH 7.36 (7.35-7.45); iSTAT Arterial Blood Gas pO2 87 mmHg (80-95); iSTAT Carbon Dioxide 33 mmol/L (24-31); iSTAT Hematocrit 48 % (42-52); iSTAT Hemoglobin 16.3 g/dl (14.0-18.0); iSTAT Potassium 4.3 mmol/L (3.3-5.0); iSTAT Sodium 138 mmol/L (135-144)
--- NOTE | 2022-12-28 23:43 | History & Physical Report ---
Date of Service December 28, 2022 Assessment & Plan (1) Acute alteration in mental status: Plan: 72yo male presents with acute episode of confusion in setting of acute on chronic hypoxic/hypercarbic respiratory failure. Improved status with use of BiPAP. No obvious infection source. -BiPAP as needed, wean as tolerated (2) Acute exacerbation of chronic obstructive pulmonary disease: Plan: Patient reports cough today, no sputum production -DuoNebs q4 hours -Albuterol as needed -Solumedrol 40mg IV TID -Continue nocturnal BiPAP and supplemental O2 (3) Chronic pain: Plan: Patient had a recent increase in his transdermal Fentanyl from 75mcg q72h to 100mcg approximately 1.5 weeks ago. Confirmed dosage with patient and PDMP. He denies increased somnolence or other side effects with this increased dosage. -Continue Fentanyl History of Present Illness Chief Complaint: hypercarbic hypoxic respiratory failure Primary Care Provider: [facility] Basim Abbott is a 72yo male with history of severe sleep disordered breathing on nocturnal BiPAP, restrictive lung disease, chronic back pain on TD Fentanyl, HTN presenting with unresponsiveness. Patient became altered, hypoxic with saturations in the 70's. He was noted to have slow respiratory rate by EMS. VBG on arrival 7.18/42. Patient placed on rescue BiPAP. Patient with improved mental status with BiPAP. During my encounter he was awake and alert, able to answer questions and follow commands. BiPAP 14/6, 40% FiO2 well tolerated. Repeat ABG 7.36/55.787 Patient reports that he has had a dry cough today. No fever, chills, chest pain, palpitations, abdominal pain, nausea, vomiting. He reports compliance with his home O2 and nocturnal BiPAP. No additional complaints at this time. Allergies Allergy/AdvReac Type Severity Reaction Status Date / Time bee venom protein (honey bee) Allergy Severe EXCESSIVE Verified 12/20/22 11:50 SWELLING AT SITE sulfamethoxazole Allergy Severe TONGUE Verified 12/20/22 11:50 SWELLS, WHITE BLISTERS IN MOUTH. trimethoprim Allergy Severe TONGUE Verified 12/20/22 11:50 SWELLS, WHITE BLISTERS IN MOUTH. adhesive Allergy Intermediate SKIN Verified 12/20/22 11:50 IRRITATION morphine AdvReac Intermediate PROJECTILE Verified 12/20/22 11:50 VOMITING Home Medications Medication Instructions Recorded Confirmed Type cyclobenzaprine 10 mg tablet 10 mg PO HS 02/28/19 12/28/22 History omeprazole 20 mg capsule,delayed 20 mg PO HS 02/28/19 12/28/22 History release ondansetron 4 mg disintegrating 4 mg PO Q8H PRN Nausea And Vomiting 04/10/19 12/28/22 History tablet dicyclomine 10 mg capsule 10 mg PO BID PRN ABD PAIN 02/12/20 12/28/22 History aspirin 81 mg tablet,delayed 81 mg PO HS 02/22/22 12/28/22 History release (Alice Low Dose Aspirin) pramipexole 0.5 mg tablet 0.5 mg PO HS #20 tabs 07/24/22 12/28/22 Rx mecobalamin (vitamin B12) 1,000 1,000 mcg PO HS 07/26/22 12/28/22 History mcg chewable tablet fentanyl 75 mcg/hr transdermal 1 patch transdermal Q48H #1 ea 08/30/22 12/28/22 Rx patch cholecalciferol (vitamin D3) 25 1,000 unit PO HS 12/04/22 12/28/22 History mcg (1,000 unit) capsule pravastatin 40 mg tablet 20 mg PO HS 12/04/22 12/28/22 History sildenafil 100 mg tablet 100 mg PO DAILY PRN sexual activity 12/04/22 12/28/22 History testosterone (AndroGel) 2 pump topical HS #75 grams 12/07/22 12/28/22 Rx fluticasone propionate 50 1 spray intranasal BID PRN 12/28/22 12/28/22 History mcg/actuation nasal Congestion spray,suspension (Flonase Allergy Relief) metoprolol succinate 25 mg 25 mg PO HS 12/28/22 12/28/22 History tablet,extended release 24 hr Past Med/Surg History Medical History Accidental overdose Acute opioid withdrawal BPH (benign prostatic hyperplasia) Chronic back pain Depression Diaphragmatic disorder GERD (gastroesophageal reflux disease) History of acute renal failure Hypertension Iron deficiency Non-ST elevation [place] (NSTEMI) Pituitary dysfunction Pneumonia Prostatitis Recurrent pneumonia Restrictive lung disease RLS (restless legs syndrome) Severe obstructive sleep apnea SVT (supraventricular tachycardia) Surgical History History of ankle surgery Britton reconstruction-right side History of carpal tunnel release History of mandibular surgery History of surgery mass removed from left side of clavicle Status post trigger finger release Family History Mother Cancer Hypertension Myasthenia gravis Breast cancer Son Environmental allergies Asthma Sister Gallbladder disease Father Alzheimer disease Grandmother (Maternal) Colorectal cancer Family/Other Myocardial infarction Other No family history of bleeding disorder Denies family history of Ovarian cancer Prostate cancer Social History Smoking Status: Never smoker Tobacco Type: Cigarettes Second Hand Exposure: No; Do You Dip or Chew Tobacco: No; Hx Alcohol Use: No Hx Substance Use: No Preferred Language: Persian Communication Ability: Effective Tailercpa Required: No Beliefs That Will Affect Care: None marital status: Current Living Situation: Spouse current occupational status: retired Feels Safe at Home: Yes Childhood Exposure to Second-Hand Smoke: Yes Dental Care, Regularly: No Physical Activity Frequency: Does not Exercise Seatbelt Use: never Sunscreen Use: Yes Assistive Devices: Cane, Scooter/Electric Scooter and Walker Review of Systems Review of Systems: All systems reviewed & are unremarkable except as noted in HPI & below Physical Exam Physical Exam: General: patient resting comfortably, NAD, non-toxic in appearance, AA&O x 4 Skin: warm, dry, intact, no rashes or lesions HEENT: NC/AT, PERRL, EOMI, anicteric sclera, conjunctiva without injection, external ear normal to inspection and nontender, nares patent, moist mucus membranes, dentition intact, no oropharyngeal lesions, neck supple, trachea midline, no LAD, no thyromegaly, no JVD Heart: +S1/S2, regular, no m/r/g Lungs: equal air entry bilaterally, no rales/rhonchi, faint end-expiratory wheezing bilaterally Abd: +BS, soft, NT/ND, no masses/organomegaly/ascites Ext: warm, 2+ pulses in UE/LE bilaterally, no clubbing/cyanosis or edema Neuro: nonfocal, patient AA&O x 4, speech intact, no facial droop, moving all extremities on command with equal strength 5/5 Results & Data Results & Data Vital Signs (Past 12 Hours) Vital Signs Temp Pulse Resp BP Pulse Ox O2 Del Method O2 Flow Rate 12/28/22 23:00 25 H 96 12/28/22 22:50 24 98 12/28/22 22:46 20 95 12/28/22 22:46 142/112 H 12/28/22 22:40 20 98 12/28/22 22:30 94 H 19 99 12/28/22 22:30 125/89 12/28/22 22:20 91 H 22 100 BiPAP 12/28/22 22:15 88 L Room Air 12/28/22 22:15 151/90 H 12/28/22 22:00 86 17 95 12/28/22 21:50 91 H 18 97 12/28/22 21:40 88 21 95 12/28/22 21:30 92 H 22 97 12/28/22 21:20 93 H 16 97 12/28/22 21:17 130/111 H 12/28/22 21:17 95 H 18 91 12/28/22 21:10 15 94 12/28/22 21:01 94 H 14 93 Nasal Cannula 3 12/28/22 21:00 98 H 12/28/22 22:29 BiPAP 12/28/22 20:45 Nasal Cannula 12/28/22 20:45 92 Room Air, Nasal Cannula 0 12/28/22 20:45 36.7 C 92 H 12 134/92 92 Room Air Laboratory Results Laboratory Results WBC 8.93 K/ul (4.8-10.8) 12/28/22 20:55 RBC 4.93 M/uL (4.70-6.10) 12/28/22 20:55 Hgb 15.9 g/dl (14.0-18.0) 12/28/22 20:55 POC Hgb 16.3 g/dl (14.0-18.0) 12/28/22 22:58 Hct 47.9 % (42.0-52.0) 12/28/22 20:55 POC Hct 48 % (42-52) 12/28/22 22:58 MCV 97.2 fL (80.0-100.0) 12/28/22 20:55 MCH 32.3 pg (25.0-34.0) 12/28/22 20:55 MCHC 33.2 g/dL (32.0-36.0) 12/28/22 20:55 RDW Std Deviation 43.4 fL (36.4-46.3) 12/28/22 20:55 RDW Coeff of Netta 12.0 % (11.5-14.5) 12/28/22 20: Plt Count 239 K/uL (130-400) 12/28/22 20:55 MPV 9.4 fL (9.4-12.4) 12/28/22 20:55 Immature Gran % (Auto) 0.8 % 12/28/22 20:55 Neut % (Auto) 73.0 % 12/28/22 20:55 Lymph % (Auto) 15.6 % 12/28/22 20:55 [place] % (Auto) 8.6 % 12/28/22 20:55 Eos % (Auto) 1.7 % 12/28/22 20:55 Baso % (Auto) 0.3 % 12/28/22 20:55 Neut # (Auto) 6.52 K/uL (1.40-6.50) H 12/28/22 20:55 Lymph # (Auto) 1.39 K/uL (1.20-3.40) 12/28/22 20:55 [place] # (Auto) 0.77 K/uL (0.11-0.59) H 12/28/22 20:55 Eos # (Auto) 0.15 K/uL (0.00-0.50) 12/28/22 20:55 Baso # (Auto) 0.03 K/uL (0.00-0.20) 12/28/22 20:55 Immature Gran # (Auto) 0.07 K/uL (0.01-0.20) 12/28/22 20:55 PT 11.5 Seconds (9.0-12.0) 12/28/22 20:55 INR 1.1 (0.9-1.1) 12/28/22 20: APTT 22.5 Seconds (21.0-31.0) 12/28/22 20:55 PTT Ratio 0.8 12/28/22 20: POC pH 7.36 (7.35-7.45) 12/28/22 22:58 POC pCO2 56 mmHg (35-46) H 12/28/22 22:58 POC pO2 87 mmHg (80-95) 12/28/22 22:58 POC HCO3 32 sharlene/L (19-24) H 12/28/22 22:58 POC Total CO2 33 mmol/L (24-31) H 12/28/22 22:58 POC Base Excess 6.0 sharlene/L (-9-1.8) H 12/28/22 22:58 POC ABG O2 Sat 96.0 % (90-95) H 12/28/22 22:58 VBG pH 7.18 (7.36-7.41) L 12/28/22 21:08 VBG pCO2 90 mmHg (38-50) H 12/28/22 21:08 VBG pO2 42 mmHg 12/28/22 21:08 VBG HCO3 34 mmol/L 12/28/22 21:08 VBG O2 Saturation 60.0 % 12/28/22 21:08 VBG Base Excess 2.3 mEq/L 12/28/22 21:08 POC Sodium 138 mmol/L (135-144) 12/28/22 22:58 Sodium 138 mmol/L (136-145) 12/28/22 20:55 POC Potassium 4.3 mmol/L (3.3-5.0) 12/28/22 22:58 Potassium 4.4 mmol/L (3.5-5.1) 12/28/22 20:55 Chloride 100 mmol/L (98-107) 12/28/22 20:55 Carbon Dioxide 34 mmol/L (21-32) H 12/28/22 20:55 Anion Gap 4 (3-11) 12/28/22 20:55 BUN 15 mg/dl (6-23) 12/28/22 20:55 Creatinine 1.22 mg/dl (0.6-1.4) 12/28/22 20:55 Est Cr Clr Drug Dosing 64.6 ml/min 12/28/22 20:55 Est GFR ( Amer) 68.7 ml/min 12/28/22 20:55 Est GFR (Non-Af Amer) 59.3 ml/min 12/28/22 20:55 BUN/Creatinine Ratio 12.3 (10-20) 12/28/22 20:55 Glucose 124 mg/dl (70-99(Fasting)) H 12/28/22 20:55 Lactate 1.4 mmol/L (0.4-2.0) 12/28/22 20:55 Calcium 9.0 mg/dl (8.6-10.3) 12/28/22 20:55 Magnesium 2.0 mg/dl (1.7-2.4) 12/28/22 20:55 Total Bilirubin 1.0 mg/dl (0.2-1.0) 12/28/22 20:55 Direct Bilirubin 0.2 mg/dl (0-0.2) 12/28/22 22:30 AST 27 U/L (13-39) 12/28/22 20:55 ALT 17 U/L (7-52) 12/28/22 20:55 Alkaline Phosphatase 53 U/L (34-104) 12/28/22 20:55 Troponin I High Sens 13.9 pg/ml (0-20) 12/28/22 20:55 Total Protein 7.4 gm/dl (6.0-8.3) 12/28/22 20:55 Albumin 4.3 gm/dl (3.4-5.0) 12/28/22 20:55 Procalcitonin < 0.05 ng/ml (0-0.5) 12/28/22 20:55 Ethyl Alcohol mg/dL < 10.0 mg/dl (<10.0) 12/28/22 21:32 Adenovirus (PCR) Not Detected (NotDetected) 12/28/22 20:57 B. pertussis DNA (PCR) Not Detected (NotDetected) 12/28/22 20:57 B.parapertussis DNA PCR Not Detected (NotDetected) 12/28/22 20:57 C. pneumoniae DNA (PCR) Not Detected (NotDetected) 12/28/22 20:57 Coronavirus OC43 (PCR) Not Detected (NotDetected) 12/28/22 20:57 Coronavirus HKU1 (PCR) Not Detected (NotDetected) 12/28/22 20:57 Coronavirus 229E (PCR) Not Detected (NotDetected) 12/28/22 20:57 SARS-CoV-2 (PCR) Not Detected (NotDetected) 12/28/22 20:57 Coronavirus NL63 (PCR) Not Detected (NotDetected) 12/28/22 20:57 Human Metapneumovir PCR Not Detected (NotDetected) 12/28/22 20:57 Influenza Type A (PCR) Not Detected (NotDetected) 12/28/22 20:57 Influenza Type B (PCR) Not Detected (NotDetected) 12/28/22 20:57 M. pneumoniae (PCR) Not Detected (NotDetected) 12/28/22 20:57 Parainfluenza 1 (PCR) Not Detected (NotDetected) 12/28/22 20:57 Parainfluenza 2 (PCR) Not Detected (NotDetected) 12/28/22 20:57 Parainfluenza 3 (PCR) Not Detected (NotDetected) 12/28/22 20:57 Parainfluenza 4 (PCR) Not Detected (NotDetected) 12/28/22 20:57 RSV (PCR) Not Detected (NotDetected) 12/28/22 20:57 Entero/Rhino (PCR) Not Detected (NotDetected) 12/28/22 20:[address] 12/28/22 20:54 Exam(s): CT HEAD Without Contrast EXAM: CT Head Without Intravenous Contrast CLINICAL HISTORY: Reason for exam: AMS, HILLIARD. TECHNIQUE: Axial computed tomography images of the head/brain without intravenous contrast. CTDI is 37.49 mGy and DLP is 625.8 mGy-cm. Automated exposure control was utilized for the study. A dose lowering technique was utilized adhering to the principles of ALARA. COMPARISON: 11/22/2022 FINDINGS: Brain: Mild periventricular white matter changes, likely related to microangiopathy. No hemorrhage. Ventricles: Unremarkable. No ventriculomegaly. Bones/joints: Unremarkable. No acute fracture. Soft tissues: Unremarkable. Sinuses: Unremarkable as visualized. No acute sinusitis. Mastoid air cells: Unremarkable as visualized. No mastoid effusion. IMPRESSION: Mild periventricular white matter changes, likely related to microangiopathy. Electronically signed by: Sathish Garcia M.D. 12/28/22 22:44 PM Code Status & VTE Plan VTE Prophylaxis Plan VTE Prophylaxis will be ordered: Yes PG Care Time/CCT Total # of Minutes Spent Total Time Spent with Patient: Total time spent is greater than 50% in coordination of care (as documented) at patient's floor/unit and/or counseling patient: Coding Level of Care Code 29323 INT INP/OBS CARE MIN Diagnoses Acute alteration in mental status R41.82 Acute exacerbation of chronic obstructive pulmonary disease J44.1 Chronic pain G89.29
[2022-12-29] MEDS ORDERED: fentaNYL 25 MCG/HR TDSY TD SCH
[2022-12-29] MEDS ORDERED: fentaNYL 100 MCG/HR TDSY TD SCH (01:00)
[2022-12-29] MEDS ORDERED: ONDANSETRON INJ 2 MG/ML 2 ML VIAL IV PRN (01:35)
[2022-12-29] MEDS ORDERED: FLUTICASONE PROPIONATE NA SPR 16 GM BTL PRN (01:35)
[2022-12-29] MEDS ORDERED: CHECK fentaNYL PATCH PLACEMENT SCH ×4 (01:35→08:00)
[2022-12-29] MEDS ORDERED: ACETAMINOPHEN 325 MG TAB PO PRN (01:35)
[2022-12-29] MEDS ORDERED: ALBUTEROL 0.083% NEBU SOLN 3 ML VIAL NEB PRN (01:35)
[2022-12-29] MEDS ORDERED: fentaNYL 75 MCG/HR TDSY TD SCH (01:35)
[2022-12-29] MEDS ORDERED: PRAMIPEXOLE DIHYDROCHLO 0.5 MG TAB PO STA (01:52)
[2022-12-29] MEDS ORDERED: CYCLOBENZAPRINE HCL 10 MG TAB PO STA (01:52)
[2022-12-29] MEDS: ALBUT/IPRATROP 3MG/0.5MG NEB 3 ML VIAL NEB SCH ×3 (03:47→11:24)
[2022-12-29] MEDS ORDERED: ENOXAPARIN INJ 40 MG/0.4 ML SYR SQ SCH (06:00)
[2022-12-29 06:49] LABS: Hemoglobin 15.7 g/dl (14.0-18.0); Mean Corpuscular Hemoglobin 31.8 pg (25.0-34.0); Mean Corpuscular Hgb Conc 33.4 g/dL (32.0-36.0); Mean Corpuscular Volume 95.3 fL (80.0-100.0); Mean Platelet Volume 9.6 fL (9.4-12.4); Platelet Count 240 K/uL (130-400); RDW Coefficient of Variation 11.9 % (11.5-14.5); Red Blood Count 4.93 M/uL (4.70-6.10); White Blood Count 9.67 K/ul (4.8-10.8)
[2022-12-29 07:08] LABS: BUN Creatinine Ratio 15.9 (10-20); Calcium 8.9 mg/dl (8.6-10.3); Creatinine Clr Calc Pharmacy 70.3 ml/min; Est GFR (African American) 80.5 ml/min; Est GFR (Non-African American) 69.5 ml/min; Potassium 4.4 mmol/L (3.5-5.1)
--- NOTE | 2022-12-29 07:33 | XRay Report ---
XR chest 1V portable CLINICAL HISTORY: Sepsis TECHNIQUE: Single frontal radiograph of the chest was obtained. Comparison: Comparison is made to chest radiograph 11/22/2022 FINDINGS: No lines and tubes are seen. The cardiomediastinal silhouette is normal. Lungs are underinflated. The re is prominence of the pulmonary vasculature. No evidence of pleural effusion or pneumothorax. IMPRESSION: Underinflated lungs. Pulmonary vascular prominence is noted. No consolidation to suggest bacterial pn eumonia. ACT 112: Negative or not required by law. Electronically signed by: Adis De La Rosa M.D. 12/29/2022 7:31 AM
[2022-12-29] MEDS ORDERED: methylPREDNISolone 40 MG in SYRINGE 0 ML IV SCH (09:00)
[2022-12-29] MEDS ORDERED: PANTOprazole 40 MG TAB PO SCH (11:10)
[2022-12-29 11:45] LABS: Base Excess VBG 5.8 mEq/L; HCO3 VBG 33 mmol/L; Oxygen Saturation VBG 81.4 %; PCO2 VBG 55 mmHg (38-50); PO2 VBG 49 mmHg; pH VBG 7.38 (7.36-7.41)
--- NOTE | 2022-12-29 13:00 | Discharge Summary ---
Date of Service December 29, 2022 Admission HPI Per Admitting Provider Basim Abbott is a 72yo male with history of severe sleep disordered breathing on nocturnal BiPAP, restrictive lung disease, chronic back pain on TD Fentanyl, HTN presenting with unresponsiveness. Patient became altered, hypoxic with saturations in the 70's. He was noted to have slow respiratory rate by EMS. VBG on arrival 7.18//42. Patient placed on rescue BiPAP. Patient with improved mental status with BiPAP. During my encounter he was awake and alert, able to answer questions and follow commands. BiPAP 14/6, 40% FiO2 well tolerated. Repeat ABG 7.36/55. Patient reports that he has had a dry cough today. No fever, chills, chest pain, palpitations, abdominal pain, nausea, vomiting. He reports compliance with his home O2 and nocturnal BiPAP. No additional complaints at this time. Principal Diagnosis acute hypercarpnic respiratory failure Discharge Exam patient is resting comfortably. Discharge Data Allergies Allergy/AdvReac Type Severity Reaction Status Date / Time bee venom protein (honey bee) Allergy Severe EXCESSIVE Verified 12/20/22 11:50 SWELLING AT SITE sulfamethoxazole Allergy Severe TONGUE Verified 12/20/22 11:50 SWELLS, WHITE BLISTERS IN MOUTH. trimethoprim Allergy Severe TONGUE Verified 12/20/22 11:50 SWELLS, WHITE BLISTERS IN MOUTH. adhesive Allergy Intermediate SKIN Verified 12/20/22 11:50 IRRITATION morphine AdvReac Intermediate PROJECTILE Verified 12/20/22 11:50 VOMITING Consultations 12/28/22 22:10 ED Decision to Admit Stat Ordered Studies 12/28/22 20:54 CT head/brain wo con Stat Hospital Course (1) Acute alteration in mental status: 72yo male presents with acute episode of confusion in setting of acute on chronic hypoxic/hypercarbic respiratory failure. Improved status with use of BiPAP. No obvious infection source. -BiPAP as needed, wean as tolerated Mentation improved the following day, Acidosis resolved. Patient signed out against medical advice. (2) Acute exacerbation of chronic obstructive pulmonary disease: Patient reports cough today, no sputum production -DuoNebs q4 hours -Albuterol as needed -Solumedrol 40mg IV TID -Continue nocturnal BiPAP and supplemental O2 (3) Chronic pain: Patient had a recent increase in his transdermal Fentanyl from 75mcg q72h to 100mcg approximately 1.5 weeks ago. Confirmed dosage with patient and PDMP. He denies increased somnolence or other side effects with this increased dosage. -Continue Fentanyl Total Time Total Time Spent Total Time Spent (In Minutes): 32 Discharge Plan Discharge Items Patient Disposition: Against Medical Advice Reason For Visit: HYPERCAPNEIC, HYPOXIC RESPIRATORY FAILURE Activity: Resume your previous activity Follow-up/Referrals: [facility],Hospital [Primary Care Provider] - Stand-Alone Forms: [facility], Smoking Cessation Medications and DC Order Prescriptions: Continued cyclobenzaprine 10 mg tablet 10 mg PO HS dicyclomine 10 mg capsule 10 mg PO BID PRN (Reason: ABD PAIN) No Action testosterone [AndroGel] 20.25 mg/1.25 gram (1.62 %) gel in metered-dose pump 2 pump topical HS Qty: 75 5RF Rx Instructions: apply 1 pump amount over max area of each upper arm and shoulder 11/27/22 PDMP queried, ok to fill - TR ondansetron 4 mg tablet,disintegrating 4 mg PO Q8H PRN (Reason: Nausea And Vomiting) mecobalamin (vitamin B12) 1,000 mcg tablet,chewable 1,000 mcg PO HS pramipexole 0.5 mg tablet 0.5 mg PO HS Qty: 20 0RF Rx Instructions: 1 tab po at bedtime, may increase to BID prn. sildenafil 100 mg tablet 100 mg PO DAILY PRN (Reason: sexual activity) Rx Instructions: Administer 30 minutes to 4 hours before activity. cholecalciferol (vitamin D3) 25 mcg (1,000 unit) capsule 1,000 unit PO HS omeprazole 20 mg capsule,delayed release(DR/EC) 20 mg PO HS aspirin [Alice Low Dose Aspirin] 81 mg tablet,delayed release (DR/EC) 81 mg PO HS pravastatin 40 mg tablet 20 mg PO HS fentanyl 75 mcg/hr patch 72 hour 1 patch transdermal Q48H Qty: 1 0RF metoprolol succinate 25 mg tablet extended release 24 hr 25 mg PO HS fluticasone propionate [Flonase Allergy Relief] 50 mcg/actuation spray,suspension 1 spray intranasal BID PRN (Reason: Congestion) Rx Instructions: administer into each nostril Discharge Orders: Left Against Medical Advice (Routine); Ordered 09/08/23 Ordered By: Dyllan Aldrich Admission Data Admit Date/Time: 12/28/22 23:14 Attending Provider: Dyllan Aldrich Admit Provider: Kimberly Paz Primary Care Provider: [facility] Other Providers: Kimberly Paz Coding Level of Care Code 18753 INP/OBS DISCH >30 MIN Diagnoses Acute alteration in mental status R41.82 Acute exacerbation of chronic obstructive pulmonary disease J44.1 Chronic pain G89.29
--- NOTE | 2022-12-29 18:09 | Electrocardiogram Report ---
Test Reason : Blood Pressure : / mmHG Vent. Rate : 096 BPM Atrial Rate : 096 BPM P-R Int : 188 ms QRS Dur : 092 ms QT Int : 352 ms P-R-T Axes : 051 -10 029 degrees QTc Int : 444 ms Normal sinus rhythm Normal ECG When compared with ECG of 22-NOV-2022 16:09, No significant change was found Confirmed by Yann Obrien ([id number]) on 12/29/2022 6:08:28 PM Referred By: REFERRED SELF Confirmed By:Andrew Obrien
[2022-12-29] MEDS ORDERED: METOPROLOL SUCC 25MG EXT REL TAB PO SCH (21:00)
[2022-12-29] MEDS ORDERED: ASPIRIN 81 MG ECTAB PO SCH (21:00)
[2022-12-29] MEDS ORDERED: CYCLOBENZAPRINE HCL 10 MG TAB PO SCH (21:00)
[2022-12-29] MEDS ORDERED: PRAMIPEXOLE DIHYDROCHLO 0.5 MG TAB PO SCH (21:00)
[2022-12-29] MEDS ORDERED: PRAVASTATIN SOD 20 MG TAB PO SCH (21:00)
[2022-12-30] MEDS ORDERED: fentaNYL 25 MCG/HR TDSY TD SCH (09:00)
== END 2022-12-29 14:07 | disposition left against medical advice (07) | DRG 189 ==
LOC: ED 20:39 → SUATTDRO 23:14 → 4W 23:14

== ENCOUNTER 2023-04-08 23:47 | Inpatient (IN) ==
--- OUTSIDE RECORDS SUMMARY | 2023-04-08 23:51 | External Medical Summary | Summary of Care ---
Author Name Unknown Organization [facility] Address [address] [place] [address] Phone [phone] Care Team Providers Care Township Supervisor Name Role Phone Francis Rubin Primary Care Provide r Reason for Visit * Reason Comments NEW PATIENT * Evaluate & Treat - Unlimited Visits (Within 30 days (routine)) - Pending Review Specialty Diagnoses / Procedures Referred By Contac t Referred To Contact Pulmonary Diseases / Pulmonary Diagnoses Restrictive lung disease Thomas Jhaveri MD [address] [place] [address] Referral ID Status Reason Start Date Expiration Date Visits Requested Visits Authorized [id number] Pending Review Specialty Services Required [phone] Encounter Details Date Type Department Care Team (Late st Contact Info) Description 04/05/2023 9:00 AM EST Office Visit Pulmonary Medicine, [address] [id number] Tarik Bolanos, DO [address] [place] [address] Chronic hypercapnic respiratory failure (HCC)*; Restrictive lung disease; Paralyzed hemidiaphragm; CHITRA (obstructive sleep apnea) Allergies Active Allergy Reactions Criticality Noted Date Comments Adhesive Tape 10/16/2011 Red pruritic rash with blisters Sulfamethoxazole-Trimethopr im 10/25/2018 Tongue swelling, ulcers in mouth Bee Venom Anaphylaxis High 09/03/2015 Demerol 10/08/2011 Latex Rash 05/27/2020 Morphine 10/08/2011 Sulfa Antibiotics 01/08/2004 Trimethoprim 05/28/2014 documented as of this encounter (statuses as of 04/05/2023) Medications Medication Sig Dispensed Refills Start Date End Date Status FLEXERIL 10 MG PO TABS Take by mouth as needed. 0 Active naloxone (NARCAN NASAL) 4 MG/0.1ML LIQD Administer 0.1 mL into nostril as needed. Administer 1 spray into 1 nostril for suspected opioid overdose. Seek immediate medical attention. http://[email or web address] 0 Active pramipexole (MIRAPEX) 0.5 MG Tablet Take 1 Tablet by mouth at bedtime. 0 Active Dicyclomine HCl 10 MG Oral Capsule (BENTYL) Take 1 Capsule by mouth 4 times a day as needed (abdominal pain). 120 Cap 2 04/06/2020 Active Omeprazole 20 MG Oral Capsule Delayed Release (PriLOSEC) Take 1 Capsule by mouth in the morning. 0 09/04/2019 Active Acetaminophen 325 MG Oral Tablet (Tylenol) Take 1 Tablet by mouth every 6 hours as needed. 0 Active Lidocaine 5 % External Patch (Lidoderm) Place 1 Patch topically on the skin as needed. 0 Active Ondansetron HCl 4 MG Oral Tablet (Zofran) Take 1 Tablet by mouth every 8 hours as needed for Nausea. 0 Active Aspirin 81 MG Oral Tablet Delayed Release take 1 tablet by oral route every day 0 Active EpiPen 2-Robb 0.3 MG/0.3ML Injection Solution Auto-injector Inject 0.3 mg into a large muscle. 0 Active Pravastatin Sodium 40 MG Oral Tablet Take 1 Tablet by mouth in the morning. 1/2 tablet before bed . 0 Active Vitamin D3 25 MCG (1000 UT) Oral Capsule Take by mouth daily. 0 Active Vitamin C 1000 MG Oral Tablet Take 1 Tablet by mouth in the morning. 0 Active Testosterone 1.62 % Transdermal Gel AT BEDTIME 0 07/14/2021 Active Tadalafil 20 MG Oral Tablet Take 1 Tablet by mouth as needed. 0 05/30/2022 Active Metoprolol Tartrate 25 MG Oral Tablet (Lopressor) Take 1 Tablet by mouth in the morning and 1 Tablet before bedtime. 0 07/12/2022 Active oxyCODONE HCl 5 MG Oral Capsule (Oxy IR) Take 1 Capsule by mouth every 4 hours as needed for Pain, Severe or Pain, Breakthrough. 10 Tablet 0 02/16/2023 Active fentaNYL 100 MCG/HR Transdermal Patch 72 Hour (Duragesic) Place 1 Patch over 48 hours topically on the skin every other day. 15 Patch 0 03/09/2023 04/05/2023 Discontinue d(Refill) documented as of this encounter (statuses as of 04/05/2023) Active Problems Problem Noted Date Diagnosed Date Restrictive lung disease 03/12/2023 Elevated diaphragm 07/13/2022 Gastroesophageal reflux disease 04/06/2020 Neck injury 10/10/2011 VERTEBRAL FX NOS-CLOSED 02/25/2004 documented as of this encounter (statuses as of 04/05/2023) Social History Tobacco Use Types Packs/Day Years Used Date Smoking Tobacco: Former Smokeless Tobacco: Never Tobacco Cessation:Counseling Given: Not Answered Comments:Quit 20-25 years ago Alcohol Use Standard Drinks/Week Comments No 0 (1 standard drink = 0.6 oz pur e alcohol) Sex and Gender Information Value Date Recorded Sex Assigned at Not on file Gender Identity Not on file Sexual Orientation Not on file Job Start Date Occupation Industry Not on file Not on file Not on file documented as of this encounter Last Filed Vital Signs Vital Sign Reading Time Taken Comments Blood Pressure 140/82 04/05/2023 9:05 AM EST Pulse 74 04/05/2023 9:05 AM EST Temperature 36.2 C (97.1 F) 04/05/2023 9:05 AM ES T Respiratory Rate - - Oxygen Saturation 97% 04/05/2023 9:05 AM EST Inhaled Oxygen Concentration - - Weight 94.8 kg (209 lb 0.6 oz) 04/05/2023 9:05 A M EST Height - - Body Mass Index 32.74 07/13/2022 10:53 AM EDT documented in this encounter Progress Notes * Tarik Bolanos, DO - 04/05/2023 9:01 AM EST Images from the original note were not included. INITIAL PULMONARY CONSULTATION NOTE REFERRING PHYSICIAN: Thomas Jhaveri MD REASON FOR REFERRAL: Chronic hypercapnic respiratory failure, 2nd opinion HPI: Basim Alvarez is a 72 year old male presenting for a 2nd opinion on his chronic hypercapnic respiratory failure. He follows with pulmonary Dr. King at [facility]. In 2003 he was admitted to [facility] [address] [facility] after a crush injury from a 1500 lb hay bale with multiple rib fractures, hemopneumothorax, pulmonary contusions. Imaging at that time showed an elevated right hemidiaphragm which has persisted since. More recently he has had multiple hospital admissions with acute on chronic hypercapnic respiratory failure. Within the past year he was changed from CPAP to BiPAP. He does not know his BiPAP settings. He does use his BiPAP every night, he is not as good about using the BiPAP during the day if he naps. He reports he will come in from the cold to warm up and fall asleep without realizing it. He denies any respiratory symptoms such as shortness of breath, coughing, wheezing. He is somewhat limited due to chronic pain primarily low back pain related to an injury in the [place] in 1973. He follows with pain management at [facility]. He previously had trials of non opiate pain management but could not function, was wheelchair-bound. His quality of life is much improved with his current opiate pain management regimen. He is aware of the risk of opiate respiratory depression with his chronic hypercapnic respiratory failure and is accepting of that risk given the improvement in his quality of life. Follows with pulmonary Dr. 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 and does not have ongoing farming exposures Pet dog and 2 cats Past Medical History: Diagnosis Date Adjustment disorder with depressed mood Arthritis Bilateral primary osteoarthritis of knee BPH (benign prostatic hyperplasia) Carpal tunnel syndrome Chronic pain syndrome Contracture of tendon sheath Diverticulosis of colon Drug induced constipation Epididymitis Esophageal reflux H/O bilateral cataract extraction Hyperlipidemia Hypertension Mass of chest wall Noninfectious gastroenteritis and colitis Other spondylosis, lumbar region Peripheral vascular disease (HCC) Radial styloid tenosynovitis Radiculopathy, cervical region Tinea unguium Past Surgical History: Procedure Laterality Date ANORECTAL EXAM ,DIAG, REQUIRING ANESTHESIA 08/09/2022 ANORECTAL EXAM UNDER ANESTHESIA performed by Radha Arana MD at [facility] CHEMODENERVATION INTERNAL ANAL SPHINCTER 08/09/2022 CHEMODENERVATION INTERNAL ANAL SPHINCTER performed by Radha Arana MD at OR [facility] COLONOSCOPY 03/24/2014 normal COLONOSCOPY 09/04/2019 EGD, FLEXIBLE, DIAGNOSTIC 2003 J[facility] EXPLORE PENETRATING WOUND, NECK 10/08/2011 EXPLORATION OF PENETRATING WOUND NECK performed by Feliz Guidry MD at [facility] INJECT DX/THER SUBSTANCE INTERLAMINAR LUMBAR/SACRAL W IMAGE GUIDE 06/26/2016 INJECTION SPINE LUMBAR OR SACRAL performed by [place] Miquel Gaona, DO at OR [facility] INJECTION LUMBAR/SACRAL 09/03/2015 INJECTION SPINE LUMBAR OR SACRAL performed by [place] Miquel Gaona, DO at OR [facility] INJECTION LUMBAR/SACRAL 10/26/2015 INJECTION SPINE LUMBAR OR SACRAL performed by [place] Miquel Gaona, DO at OR [facility] INJECTION LUMBAR/SACRAL 03/02/2016 INJECTION SPINE LUMBAR OR SACRAL performed by [place] Miquel Gaona, DO at OR [facility] LIGATION OF EXTERNAL CAROTID ARTERY 10/08/2011 LIGATION EXTERNAL CAROTID ARTERY performed by Feliz Guidry MD at [place] [facility] Review of patient's allergies indicates: Allergen Reactions Bee Venom Anaphylaxis Adhesive Tape Red pruritic rash with blisters Bactrim [Sulfamethoxazole-Trimethoprim] Tongue swelling, ulcers in mouth Demerol Latex Rash Morphine Sulfa Antibiotics Trimethoprim Current Outpatient Medications Medication Sig Dispense Refill FLEXERIL 10 MG PO TABS Take by mouth as needed. naloxone (NARCAN NASAL) 4 MG/0.1ML LIQD Administer 0.1 mL into nostril as needed. Administer 1 spray into 1 nostril for suspected opioid overdose. Seek immediate medical attention. http://youtu.[email or web address] pramipexole (MIRAPEX) 0.5 MG Tablet Take 1 Tablet by mouth at bedtime. Dicyclomine HCl 10 MG Oral Capsule (BENTYL) Take 1 Capsule by mouth 4 times a day as needed (abdominal pain). 120 Cap 2 Omeprazole 20 MG Oral Capsule Delayed Release (PriLOSEC) Take 1 Capsule by mouth in the morning. Acetaminophen 325 MG Oral Tablet (Tylenol) Take 1 Tablet by mouth every 6 hours as needed. Lidocaine 5 % External Patch (Lidoderm) Place 1 Patch topically on the skin as needed. Ondansetron HCl 4 MG Oral Tablet (Zofran) Take 1 Tablet by mouth every 8 hours as needed for Nausea. Aspirin 81 MG Oral Tablet Delayed Release take 1 tablet by oral route every day EpiPen 2-Robb 0.3 MG/0.3ML Injection Solution Auto-injector Inject 0.3 mg into a large muscle. Pravastatin Sodium 40 MG Oral Tablet Take 1 Tablet by mouth in the morning. 1/2 tablet before bed . Vitamin D3 25 MCG (1000 UT) Oral Capsule Take by mouth daily. Vitamin C 1000 MG Oral Tablet Take 1 Tablet by mouth in the morning. Testosterone 1.62 % Transdermal Gel AT BEDTIME Tadalafil 20 MG Oral Tablet Take 1 Tablet by mouth as needed. Metoprolol Tartrate 25 MG Oral Tablet (Lopressor) Take 1 Tablet by mouth in the morning and 1 Tablet before bedtime. oxyCODONE HCl 5 MG Oral Capsule (Oxy IR) Take 1 Capsule by mouth every 4 hours as needed for Pain, Severe or Pain, Breakthrough. 10 Tablet 0 fentaNYL 100 MCG/HR Transdermal Patch 72 Hour (Duragesic) Place 1 Patch over 48 hours topically on the skin every other day. 15 Patch 0 No current facility-administered medications for this visit. FAMILY HISTORY: Family History Problem Relation Age of Onset Breast Cancer Mother Dementia Father PHYSICAL EXAM: BP 140/82 (BP Site: Left Arm, BP Position: Sitting, BP Cuff Size: Regular) | Pulse 74 | Temp 36.2 C (97.1 F) (Tympanic) | Wt 94.8 kg (209 lb 0.6 oz) | SpO2 97% | BMI 32.74 kg/m | BSA 2.12 m Constitutional: no acute distress, able to converse without apparent dyspnea Eyes: anicteric, pupils equal ENT: external ears normal, no nasal discharge Neck: trachea midline, JVP normal CV: normal rate and rhythm, no murmurs Chest: normal respiratory effort, clear to auscultation, no wheezing or crackles Abdomen: obese, normal bowel sounds Extremities: no clubbing, no cyanosis Neuro: alert, oriented Psych: normal mood and affect Pulmonary Function Test Results: None available to review Chest X-ray: 12/28/2022 personally visualized: Elevated right hemidiaphragm 12/26/2003 personally visualized: Elevated right hemidiaphragm with multiple right-sided rib fractures with likely pneumothorax and subcutaneous emphysema Chest CT scan: 06/11/2022 personally visualized: Elevated right hemidiaphragm with overlying atelectasis Labs: From Dr. King note: Assessment: J96.12 Chronic hypercapnic respiratory failure (HCC) (primary encounter diagnosis) - likely multifactorial including elevated and likely paralyzed right hemidiaphragm causing restrictive lung disease, obstructive sleep apnea, central obesity, pain medications J98.4 Restrictive lung disease J98.6 Paralyzed hemidiaphragm G47.33 CHITRA (obstructive sleep apnea) Recommendations and Plans: Agree that diaphragm plication is unlikely to benefit him in terms of his chronic hypercapnic respiratory failure and carries significant risk Recommend continuing BiPAP given this was recently changed from CPAP within the past year If he has recurrent episodes of acute on chronic hypercapnic respiratory failure requiring hospitalization would consider changing to a noninvasive ventilator to assure adequate minute ventilation He plans to continue following with Dr. King for management of his chronic hypercapnic respiratory failure Follow up as needed Total time spent today 60 minutes including chart review, personal interpretation of imaging, outside records, [id number] visit Tarik Bolanos DO Associate - Pulmonary and Critical Care Medicine [facility] [address] [facility] [address] documented in this encounter Nursing Notes * Marycarmen River, MELTING FURNACE SKIMMER - 04/05/2023 9:07 AM EST No cough, wheezing or tightness in chest. States has sinus issues at night Wears bipap. Had cough yesterday with a burning in chest. MMRC Dyspnea Scale = 0 (I only get breathless with strenuous exercise) documented in this encounter Plan of Treatment Upcoming Encounters Date Type Department Care Team (Late st Contact Info) Description 04/10/2023 2:35 PM EST Office Visit [facility] [address] [place] [address] Tony Ho DO [address] [place] [address] Scheduled Referrals Name Type Priority Associated Diagnoses Orde r Schedule PULMONARY REFERRAL OP Referral Within 30 days (routine) Restrictive lung disease Ordered: 03/12/2023 Health Maintenance Due Date Last Done Comments Lipid Panel 1950 Pneumococcal Vaccine: 65+ Years (1 - PCV) 09[birth year]01/1956 Depression Screening 1962 Hepatitis C Screening 09/01/1969 DTaP,Tdap,and Td Vaccines (1 - Tdap) 09/01/1970 Cologuard 09/01/1996 Fecal Occult Blood Test 09/01/1996 Sigmoidoscopy 09/01/1996 Zoster Vaccines (1 of 2) 09/01/2001 AAA Screening 09/01/2016 COVID-19 Vaccine (2 - 2022-2 4 season) 2022 02/14/2022 Influenza Vaccine (FLU shot) (#1) 2022 02/14/2022, 01/24/2019 Colonoscopy 09/03/2029 09/04/2019 Colorectal Cancer Screening 09/03/2029 GARDASIL-HPV IMMUNIZATION SERIES Aged Out No longer eligible b ased on patient's age to complete this topic Hepatitis B Aged Out No longer eligi ble based on patient's age to complete this topic MENINGOCOCCAL (MENACTRA/MENVEO) Aged Out No longer eligible b ased on patient's age to complete this topic documented as of this encounter Medical Devices Not on filedocumented as of this encounter Visit Diagnoses Diagnosis Chronic hypercapnic respiratory failure (HCC)- Primary Chronic respiratory failure Restrictive lung disease Other diseases of lung, not elsewhere classified Paralyzed hemidiaphragm Disorders of diaphragm CHITRA (obstructive sleep apnea) Obstructive sleep apnea (adult) (pediatric) documented in this encounter Advance Directives Latest Code Status on File Code Status Date Activated Date Inactivated Comments Full Code 10/08/2011 5:12 PM 10/11/2011 5:56 PM Question Answer Comments Discussion of Advance Direct alejandro occurred with: Not Discussed Does the patient have a Living Will? No Does the patient have Health Care Power of Janitorial Cleaner? No Care Teams Township Supervisor Relationship Specialty Start Date End Date Francis Rubin CRNP [address] [place] [address] PCP - General Nurse Practitioner 03/15/22 documented as of this encounter
--- OUTSIDE RECORDS SUMMARY | 2023-04-08 23:52 | External Medical Summary | Summary of Care ---
Author Name Unknown Organization [facility] Address [address] [place] [address] Phone [phone] Care Team Providers Care Online Affiliate Marketing Manager Name Role Phone Francis Rubin Primary Care Provide r Encounter Details Date Type Department Care Team (Latest Contact Info) Description 07/01/2022 1:50 PM EST - 07/01/2022 11:59 PM EST Hospital Encounter Radiology Film File [address] [place] [address] Discharge Disposition: Home - Self Care Allergies Active Allergy Reactions Criticality Noted Date Comments Adhesive Tape 10/16/2011 Red pruritic rash with blisters Sulfamethoxazole-Trimethopr im 10/25/2018 Tongue swelling, ulcers in mouth Bee Venom Anaphylaxis High 09/03/2015 Demerol 10/08/2011 Latex Rash 05/27/2020 Morphine 10/08/2011 Sulfa Antibiotics 01/08/2004 Trimethoprim 05/28/2014 documented as of this encounter (statuses as of 02/27/2023) Medications Medication Sig Dispensed Refills Start Date End Date Status FLEXERIL 10 MG PO TABS Take by mouth as needed. 0 Active naloxone (NARCAN NASAL) 4 MG/0.1ML LIQD Administer 0.1 mL into nostril as needed. Administer 1 spray into 1 nostril for suspected opioid overdose. Seek immediate medical attention. http://youtu.[email or web address] 0 Active pramipexole (MIRAPEX) 0.5 MG Tablet [...] Oral Capsule Take by mouth daily. 0 Acti ve Vitamin C 1000 MG Oral Tablet Take 1 Tablet by mouth in the morning. 0 Active Metoprolol Tartrate 25 MG Oral Tablet (Lopressor) Take 1 Tablet by mouth in the morning and 1 Tablet before bedtime. 0 07/12/2022 Active Doxycycline Hyclate 100 MG Oral Tablet Delayed Release Take 1 Tablet by mouth in the morning and 1 Tablet before bedtime. 0 Active documented as of this encounter (statuses as of 02/27/2023) Active Problems Problem Noted Date Diagnosed Date Elevated diaphragm 07/13/2022 Gastroesophageal reflux disease 04/06/2020 Neck injury 10/10/2011 VERTEBRAL FX NOS-CLOSED 02/25/2004 documented as of this encounter (statuses as of 02/27/2023) Social History Tobacco Use Types Packs/Day Years Used Date Smoking Tobacco: Former Smokeless Tobacco: Never Comments:Quit 20-25 years ag o Alcohol Use Standard Drinks/Week Comments No 0 (1 standard drink = 0.6 oz pur e alcohol) Sex and Gender Information Value Date Recorded Sex Assigned at Not on file Gender Identity Not on file Sexual Orientation Not on file Job Start Date Occupation Industry Not on file Not on file Not on file documented as of this encounter Plan of Treatment Upcoming Encounters Date Type Department Care Team (Late st Contact Info) Description 03/19/2023 1:00 PM EST [facility] [address] [place] [address] Chayito Kidd CRNP [address] [place] [address] Health Maintenance Due Date Last Done Comments Lipid Panel 1950 Depression Screening 1963 Hepatitis C Screening 09/01/1969 DTaP,Tdap,and Td Vaccines (1 - Tdap) 09/01/1970 Cologuard 09/01/1996 Fecal Occult Blood Test 09/01/1996 Sigmoidoscopy 09/01/1996 Zoster Vaccines (1 of 2) 09/01/2001 AAA Screening 09/01/2016 Pneumococcal Vaccine: 65+ Years (1 - PCV) 09/01/2016 COVID-19 Vaccine (2 - 2022-2 4 [...] Not on filedocumented as of this encounter Procedures Procedure Name Priority Date/Time Associated Diagnosis Comments RADIOLOGY EXAM - GENERAL RAD (IMAGES ONLY,NO REPORT) Routine 07/01/2022 1:50 PM EST documented in this encounter Results * RADIOLOGY EXAM - GENERAL RAD (IMAGES ONLY,NO REPORT) (07/01/2022 1:50 PM EST) 07/01/2022 1:47 PM EST Narrative Scheduling, Silent - 02/26/2023 4:18 PM EST This is an imaging study not interpreted or resulted by a [facility] or [facility] contracted radiologist. [facility] ([facility]) documented in this encounter Advance Directives Latest Code Status on File Code Status Date Activated Date Inactivated Comments Full Code 10/08/2011 5:12 PM 10/11/2011 5:56 PM Question Answer Comments Discussion of Advance Direct alejandro occurred with: Not Discussed Does the patient have a Living Will? No Does the patient have Health Care Power of Police Inspector? No Care Teams Online Affiliate Marketing Manager Relationship Specialty Start Date End Date Francis Rubin CRNP [address] [place] [address] PCP - General Nurse Practitioner 03/15/22 documented as of this encounter
--- OUTSIDE RECORDS SUMMARY | 2023-04-08 23:52 | External Medical Summary | Summary of Care ---
Author Name Unknown Organization [facility] Address [address] [place] [address] Phone [phone] Care Team Providers Care Control Officer Name Role Phone Francis Rubin Primary Care Provide r Encounter Details Date Type Department Care Team (Late st Contact Info) Description 11/22/2022 Orders Only Unspecified Department Francis Rubin CRNP [address] [place], [place] [id number] Allergies Active Allergy Reactions Criticality Noted Date Comments Adhesive Tape 10/16/2011 Red pruritic rash with blisters Sulfamethoxazole-Trimethopr im 10/25/2018 Tongue swelling, ulcers in mouth Bee Venom Anaphylaxis High 09/03/2015 Demerol 10/08/2011 Latex Rash 05/27/2020 Morphine 10/08/2011 Sulfa Antibiotics 01/08/2004 Trimethoprim 05/28/2014 documented as of this encounter (statuses as of 02/26/2023) Medications Medication Sig Dispensed Refills Start Date End Date Status FLEXERIL 10 MG PO TABS Take by mouth as needed. 0 Active naloxone (NARCAN NASAL) 4 MG/0.1ML LIQD Administer 0.1 mL into nostril as needed. Administer 1 spray into 1 nostril for suspected opioid overdose. Seek immediate medical attention. http://youtu.[email or web address] 0 Active pramipexole (MIRAPEX) 0.5 MG Tablet [...] by mouth as needed. 0 05/30/2022 Active Gabapentin 300 MG Oral Capsule (Neurontin) Take 1 Capsule by mouth in the morning and 1 Capsule at noon and 1 Capsule before bedtime. 0 Active Metoprolol Tartrate 25 MG Oral Tablet (Lopressor) Take 1 Tablet by mouth in the morning and 1 Tablet before bedtime. 0 07/12/2022 Active Doxycycline Hyclate 100 MG Oral Tablet Delayed Release Take 1 Tablet by mouth in the morning and 1 Tablet before bedtime. 0 Active documented as of this encounter (statuses as of 02/26/2023) Active Problems Problem Noted Date Diagnosed Date Elevated diaphragm 07/13/2022 Gastroesophageal reflux disease 04/06/2020 Neck injury 10/10/2011 VERTEBRAL FX NOS-CLOSED 02/25/2004 documented as of this encounter (statuses as of 02/26/2023) Social History Tobacco Use Types Packs/Day Years [...] 03/19/2023 1:00 PM EST Office Visit [facility] [place] [address] [place] [address] Chayito Kidd CRNP [address] [place] [address] Health Maintenance Due Date Last Done Comments [...] - GENERAL RAD (IMAGES ONLY,NO REPORT) Routine 11/22/2022 5:45 PM EDT documented in this encounter Results * RADIOLOGY EXAM - GENERAL RAD (IMAGES ONLY,NO REPORT) (11/22/2022 5:45 PM EDT) 11/22/2022 5:43 PM EDT Narrative Scheduling, Silent - 02/26/2023 4:28 PM EST This is an imaging study not interpreted or resulted by a [facility] or [facility] contracted radiologist. [facility] ([facility]) documented in this encounter Advance Directives Latest Code Status on File Code Status Date Activated Date Inactivated Comments Full Code 10/08/2011 5:12 PM 10/11/2011 5:56 PM Question Answer Comments Discussion of Advance Direct alejandro occurred with: Not Discussed Does the patient have a Living Will? No Does the patient have Health Care Power of Artist Mannequin Coloring? No Care Teams Control Officer Relationship Specialty Start Date End Date Francis Rubin CRNP [address] [facility] [place] [address] PCP - General Nurse Practitioner 03/15/22 documented as of this encounter
--- OUTSIDE RECORDS SUMMARY | 2023-04-08 23:52 | External Medical Summary | Summary of Care ---
Author Name Unknown Organization [facility] Address [address] [place] [address] Phone [phone] Care Team Providers Care Interior Design Faculty Member Name Role Phone Francis Rubin Primary Care Provide r Reason for Visit * Reason Onset Date Comments Pre Cert/Prior Auth 12/19/2022 Fentanyl 25 Encounter Details Date Type Department Care Team (Late st Contact Info) Description 12/19/2022 Telephone [facility] [place] [address] [place], [place] [phone] Tony Ho DO [address] [place], [place] [phone] Pre Cert/Prior Auth (Fentanyl 25) Allergies Active Allergy Reactions Criticality Noted Date Comments Adhesive Tape 10/16/2011 Red pruritic rash with blisters Sulfamethoxazole-Trimethopr im 10/25/2018 Tongue swelling, ulcers in mouth Bee Venom Anaphylaxis High 09/03/2015 Demerol 10/08/2011 Latex Rash 05/27/2020 Morphine 10/08/2011 Sulfa Antibiotics 01/08/2004 Trimethoprim 05/28/2014 documented as of this encounter (statuses as of 03/20/2023) Medications Medication Sig Dispensed Refills Start Date End Date Status FLEXERIL 10 MG PO TABS Take by mouth as needed. 0 Active naloxone (NARCAN NASAL) 4 MG/0.1ML LIQD Administer 0.1 mL into nostril as needed. Administer 1 spray into 1 nostril for suspected opioid overdose. Seek immediate medical attention. [email or web address] 0 Active pramipexole (MIRAPEX) 0.5 MG Tablet [...] 1 Tablet before bedtime. 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 Did confirm this information with the pharmacy. Pt's current insurance information is as follows: Patient name: Basim Alvarez ID number: [id number] BIN number: [id number] PCN number: [id number] Group number: Subscriber name: Basim Alvarez Primary or Secondary Insurance:Primary Medication: fantanyl 25 mcg patch Reason for Request: car mattson. Pharmacy and phone number: [facility] [address] [facility] Rx plan and phone number: [facility] [phone] Thank you, Indu Nevarez [facility] Director Of Broadcast II [facility] ([facility]) (Formerly Telepharmacy) 12/19/2022, 12:43 PM documented in this encounter Plan of Treatment Upcoming Encounters Date Type Department Care Team (Late st Contact Info) Description 04/05/2023 9:00 AM EST Office Visit [facility]monary Medicine, [facility] [address] [facility] [address] Tarik Bolanos, DO [address] [facility] [place] [address] 04/10/2023 2:35 PM EST Office Visit [facility] [address] [place] [address] Tony Ho DO [address] [place] [address] Health Maintenance Due Date Last Done Comments [...] Not on filedocumented as of this encounter Advance Directives Latest Code Status on File Code Status Date Activated Date Inactivated Comments Full Code 10/08/2011 5:12 PM 10/11/2011 5:56 PM Question Answer Comments Discussion of Advance Direct alejandro occurred with: Not Discussed Does the patient have a Living Will? No Does the patient have Health Care Power of Lead Scientist? No Care Teams Interior Design Faculty Member Relationship Specialty Start Date End Date Francis Rubin CRNP [address] [place] [address] PCP - General Nurse Practitioner 03/15/22 documented as of this encounter
--- OUTSIDE RECORDS SUMMARY | 2023-04-08 23:52 | External Medical Summary | Summary of Care ---
Author Name Unknown Organization [facility] Address [address] [place] [address] Phone [phone] Care Team Providers Care Restaurant Front Manager Name Role Phone Francis Rubin Primary Care Provide r Encounter Details Date Type Department Care Team (Latest Contact Info) Description 12/28/2022 9:00 PM EDT - 12/28/2022 11:59 PM EDT Hospital Encounter Radiology Film File [address] [place] [address] Discharge Disposition: Home - Self [...] opioid overdose. Seek immediate medical attention. [email or web address] 0 Active pramipexole (MIRAPEX) 0.5 MG Tablet [...] 1:00 PM EST Office Visit [facility], [place] [address] [place] [address] Chayito Kidd CRNP [address] [place], [place] [phone] Health Maintenance Due Date Last Done Comments [...] - GENERAL RAD (IMAGES ONLY,NO REPORT) Routine 12/28/2022 9:00 PM EDT documented in this encounter Results * RADIOLOGY EXAM - GENERAL RAD (IMAGES ONLY,NO REPORT) (12/28/2022 9:00 PM EDT) 12/28/2022 8:59 PM EDT Narrative Scheduling, Silent - 02/26/2023 4:30 PM EST This is an imaging study not interpreted or resulted by a [facility] or [facility] contracted radiologist. [facility] ([facility]) documented in this encounter Advance Directives Latest Code Status on File Code Status Date Activated Date Inactivated Comments Full Code 10/08/2011 5:12 PM 10/11/2011 5:56 PM Question Answer Comments Discussion of Advance Direct alejandro occurred with: Not Discussed Does the patient have a Living Will? No Does the patient have Health Care Power of Manager Lab? No Care Teams Restaurant Front Manager Relationship Specialty Start Date End Date Francis Rubin CRNP [address] [place] [address] PCP - General Nurse Practitioner 03/15/22 documented as of this encounter
--- OUTSIDE RECORDS SUMMARY | 2023-04-08 23:52 | External Medical Summary | Summary of Care ---
Author Name Unknown Organization [facility] Address [address] [place] [address] Phone [phone] Care Team Providers Care Shelf Stocker Name Role Phone Francis Rubin Primary Care Provide r Encounter Details Date Type Department Care Team (Latest Contact Info) Description 11/22/2022 5:45 PM EDT - 11/22/2022 11:59 PM EDT Hospital Encounter Radiology Film File [address] [place] [address] Discharge Disposition: Home - Self [...] opioid overdose. Seek immediate medical attention. [email or web address] 0 Active pramipexole (MIRAPEX) 0.5 MG Tablet [...] 1:00 PM EST Office Visit [facility], [place] [address] [place] [address] Chayito Kidd CRNP [address] [place], [place] [phone] Health Maintenance Due Date Last Done Comments [...] study not interpreted or resulted by [facility]. [facility] ([facility]) documented in this encounter Advance Directives Latest Code Status on File Code Status Date Activated Date Inactivated Comments Full Code 10/08/2011 5:12 PM 10/11/2011 5:56 PM Question Answer Comments Discussion of Advance Direct alejandro occurred with: Not Discussed Does the patient have a Living Will? No Does the patient have Health Care Power of Incinerator Plant Laborer? No Care Teams Shelf Stocker Relationship Specialty Start Date End Date Francis Rubin CRNP [address] [facility] [place] [address] PCP - General Nurse Practitioner 03/15/22 documented as of this encounter
--- OUTSIDE RECORDS SUMMARY | 2023-04-08 23:52 | External Medical Summary | Summary of Care ---
Author Name Unknown Organization [facility] Address [address] [place] [address] Phone [phone] Care Team Providers Care Virologist Name Role Phone Francis Rubin Primary Care Provide r Reason for Visit * Reason Onset Date Comments Advice 12/11/2022 Encounter Details Date Type Department Care Team (Late st Contact Info) Description 12/11/2022 Telephone [facility] [place] [address] [place], [place] [phone] Tony Ho DO [address] [place] [address] Advice Allergies Active Allergy Reactions Criticality Noted Date Comments Adhesive Tape 10/16/2011 Red pruritic rash with blisters Sulfamethoxazole-Trimethopr im 10/25/2018 Tongue swelling, ulcers in mouth Bee Venom Anaphylaxis High 09/03/2015 Demerol 10/08/2011 Latex Rash 05/27/2020 Morphine 10/08/2011 Sulfa Antibiotics 01/08/2004 Trimethoprim 05/28/2014 documented as of this encounter (statuses as of 03/12/2023) Medications Medication Sig Dispensed Refills Start Date End Date Status FLEXERIL 10 MG PO TABS Take by mouth as needed. 0 Active naloxone (NARCAN NASAL) 4 MG/0.1ML LIQD Administer 0.1 mL into nostril as needed. Administer 1 spray into 1 nostril for suspected opioid overdose. Seek immediate medical attention. 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 Any chance we can do his re-eval when he's here on 12/19? They come from [place]. documented in this encounter Plan of Treatment Upcoming Encounters Date Type Department Care Team (Late st Contact Info) Description 03/19/2023 1:00 PM EST Office Visit [facility], [place] [address] [place] [address] Chayito Kidd CRNP [address] [place] [address] 06/18/2023 1:05 PM EST Office Visit [facility] [address] [place] [address] Tony Ho DO [address] [place] [address] Health Maintenance Due Date Last Done Comments [...] the patient have Health Care Power of Explosive Ordnance Technician? No Care Teams Virologist Relationship Specialty Start Date End Date Francis Rubin CRNP [address] [facility] [place] [address] PCP - General Nurse Practitioner 03/15/22 documented as of this encounter
--- OUTSIDE RECORDS SUMMARY | 2023-04-08 23:52 | External Medical Summary | Summary of Care ---
Author Name Unknown Organization [facility] Address [address] [place] [address] Phone [phone] Care Team Providers Care Education Liaison Name Role Phone Francis Rubin Primary Care Provide r Encounter Details Date Type Department Care Team (Latest Contact Info) Description 03/19/2023 1:00 PM EST [facility] [address] [place] [address] Chayito Kidd CRNP [address] [place] [address] Dyssynergic defecation*; History of gastroesophageal reflux (GERD) Allergies Active Allergy Reactions Criticality Noted Date Comments Adhesive Tape 10/16/2011 Red pruritic rash with blisters Sulfamethoxazole-Trimethopr im 10/25/2018 Tongue swelling, ulcers in mouth Bee Venom Anaphylaxis High 09/03/2015 Demerol 10/08/2011 Latex Rash 05/27/2020 Morphine 10/08/2011 Sulfa Antibiotics 01/08/2004 Trimethoprim 05/28/2014 documented as of this encounter (statuses as of 03/19/2023) Medications Medication Sig Dispensed Refills Start Date End Date Status FLEXERIL 10 MG PO TABS Take by mouth as needed. 0 Active naloxone (NARCAN NASAL) 4 MG/0.1ML LIQD Administer 0.1 mL into nostril as needed. Administer 1 spray into 1 nostril for suspected opioid overdose. Seek immediate medical attention. [email or web address] 0 Active pramipexole (MIRAPEX) 0.5 MG Tablet [...] every other day. 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 Patient was then informed that this was a telephone call only visit. The patient agreed to participate. Visit Disposition: Routine follow-up Total call duration, chart review, and charting 21 minutes. History of Present Illness: Basim Alvarez is a 72 year old male, patient of Francis [facility], he presents with his for follow-up. History of abdominal pain and chronic constipation. 2018 CT abdomen pelvis with contrast showed hepatic steatosis, no colitis or bowel obstruction. Small nonspecific pulmonary nodule. 09/04/2019 colonoscopy finding normal colon random biopsies obtained. Negative colon biopsies. History chronic pain and has required chronic opioid treatment. He tapered off pain medication without any improvement in bowel habit. His pain was uncontrolled and resumed use of fentanyl patch. Previously tried MiraLax, stool softeners, senna, Metamucil, milk of magnesia, Amitiza, and movantik without any significant improvement. Recommended sitz marker study. 08/2020 Sitz marker test with 6 markers remaining within the descending/rectum. Concerning for anorectal dysfunction. Recommended Colorectal surgery for chronic idiopathic constipation and anorectal manometry. 09/15/20 he was evaluated by .Recatal exam Normal tone and pelvic floor relaxation on Valsalva. Normal squeeze generated with repeated efforts. Anoscopy: (Performed by Dr. Arana) The anoscope was inserted into the anal canal. The patient tolerated this well. A circumferential inspection of the anal canal was performed and was notable for internal, mildly inflamed hemorrhoids in the typical columns. 04/06/2021 high-resolution anorectal motility study with findings of type 1 dyssenergic defecation.Recommendateions for biofeedback therapy. Pending response consider botox to PRM. Continue bowel hygiene with timed toilet training with attempted bowel movement BID 30 minutes after meals and to strain for no more than 5 minutes. Push a level 5-7/10. Corrrect toilet position. Avoid constipating medications and consider alternative, adequate water intake, and regular exercise. 08/09/2022 Botox injection to PMR. Last office visit 09/14/22, he found improvement in constipation a few days following Botox injection. Producing a daily bowel movement. No longer experiencing abdominal discomfort or nausea. Appetite improved. No active heartburn with regimen of omeprazole. No reoccurrence in aspiration pneumonia. Today he reports he takes stool softeners, 2-4 daily to manage bowel habit. Produces a bowel movement a few times weekly. Someday's he may only produced one or have several in a day. He continues to do well compared to bowel habit prior to botox to PMR. GERD controlled on omeprazole 20 mg daily. Allergies: Review of patient's allergies indicates: Allergen Reactions Bee Venom Anaphylaxis Adhesive Tape Red pruritic rash with blisters Bactrim [Sulfamethoxazole-Trimethoprim] Tongue swelling, ulcers in mouth Demerol Latex Rash Morphine Sulfa Antibiotics Trimethoprim Medications: Current Outpatient Medications Medication Sig Dispense Refill FLEXERIL 10 MG PO TABS Take by mouth as needed. naloxone (NARCAN NASAL) 4 MG/0.1ML LIQD Administer 0.1 mL into nostril as needed. Administer 1 spray into 1 nostril for suspected opioid overdose. Seek immediate medical attention. [email or web address] pramipexole (MIRAPEX) 0.5 MG Tablet Take 1 [...] No current facility-administered medications for this visit. Family History: Family History Problem Relation Age of Onset Breast Cancer Mother Dementia Father Social History: Social History Tobacco Use Smoking status: Former Smokeless tobacco: Never Tobacco comments: Quit 20-25 years ago Vaping Use Vaping Use: Never used Substance Use Topics Alcohol use: No Drug use: No Past Medical History: Past Medical History: Diagnosis Date Adjustment disorder [...] cervical region Tinea unguium Past Surgical History: Past Surgical History: Procedure Laterality Date ANORECTAL EXAM ,DIAG, REQUIRING ANESTHESIA 08/09/2022 ANORECTAL EXAM UNDER ANESTHESIA performed by Radha Arana MD at OR [facility] CHEMODENERVATION INTERNAL ANAL SPHINCTER 08/09/2022 CHEMODENERVATION INTERNAL ANAL SPHINCTER performed by Radha Arana MD at OR [facility] COLONOSCOPY 03/24/2014 normal COLONOSCOPY 09/04/2019 EGD, FLEXIBLE, DIAGNOSTIC 2004 JTB EXPLORE PENETRATING WOUND, NECK 10/08/2011 EXPLORATION OF PENETRATING WOUND NECK performed by Feliz Guidry MD at OR [facility] INJECT DX/THER SUBSTANCE INTERLAMINAR LUMBAR/SACRAL W IMAGE GUIDE 06/26/2016 INJECTION SPINE LUMBAR OR SACRAL performed by Michael Gaona, DO at OR [facility] INJECTION LUMBAR/SACRAL 09/03/2015 INJECTION SPINE LUMBAR OR SACRAL performed by Michael Gaona, DO at OR [facility] INJECTION LUMBAR/SACRAL 10/26/2015 INJECTION SPINE LUMBAR OR SACRAL performed by Oliver Miquel Gaona, DO at OR [facility] INJECTION LUMBAR/SACRAL 03/02/2016 INJECTION SPINE LUMBAR OR SACRAL performed by Oliver Miquel Gaona, DO at OR [facility] LIGATION OF EXTERNAL CAROTID ARTERY 10/08/2011 LIGATION EXTERNAL CAROTID ARTERY performed by Feliz Guidry MD at OR [facility] Review of Systems: Otherwise negative unless noted in HPI Vital Signs: N/a Physical Examination: N/a Assessment and Plan: Dyssynergic constipation Continue stool softeners per bowel habit. Repeat botox PMR per constipation symptoms. GERD Managed on omeprazole. No reoccurance in pneumonia. Follow-up in 6 months. He voiced understanding and agrees. This note was dictated using [employer] voice recognition software. The content was reviewed for accuracy, but minor grammatical or word replacement errors may still exist . FELICITAS Macdonald 03/19/2023 1:03 PM documented in this encounter Plan of Treatment Upcoming Encounters Date Type Department Care Team (Late st Contact Info) Description 04/05/2023 9:00 AM EST Office Visit Pulmonary Medicine, [facility] [address] [facility] [place] [address] Tarik Bolanos[facility] [address] [facility] [address] 04/10/2023 2:35 PM EST Office Visit [facility] [address] [place] [address] Vic Tony DO [place] [address] [place] [address] Health Maintenance Due Date Last Done Comments [...] as of this encounter Visit Diagnoses Diagnosis Dyssynergic defecation- Primary History of gastroesophageal reflux (GERD) Personal history of other diseases of digestive system documented in this encounter Advance Directives Latest Code Status on File Code Status Date Activated Date Inactivated Comments Full Code 10/08/2011 5:12 PM 10/11/2011 5:56 PM Question Answer Comments Discussion of Advance Direct alejandro occurred with: Not Discussed Does the patient have a Living Will? No Does the patient have Health Care Power of Machine Operator Picker? No Care Teams Education Liaison Relationship Specialty Start Date End Date Francis Rubin CRNP [address] [place] [address] PCP - General Nurse Practitioner 03/15/22 documented as of this encounter
--- OUTSIDE RECORDS SUMMARY | 2023-04-08 23:52 | External Medical Summary | Summary of Care ---
Author Name Unknown Organization [facility] Address [address] [place] [address] Phone [phone] Care Team Providers Care Die Maker Stamping Name Role Phone Francis Rubin Primary Care Provide r Reason for Referral * Evaluate & Treat - Unlimited Visits (Within 10 days (routine)) - Authorized Specialty Diagnoses / Procedures Referred By Contact Referred To Contact Thoracic and Cardiac Surgery / Cardiothoracic Surgery Diagnoses Disorders of diaphragm Sofia Lozano CRNP [address] [place] [address] Referral ID Status Reason Start Date Expiration Date Visits Requested Visits Authorized [id number] Authorized Specialty Services Required 02/28/2023 08/22/[phone] Question Answer Referral Priority Within 10 days (routine) Where should this appointment be scheduled? [facility] Primary Reason for Referral? Other Comments Disorders of diaphragm Encounter Details Date Type Department Care Team (Late st Contact Info) Description 02/28/2023 Orders Only Access [facility], [place] [facility] [address] [place] [address] Ext *DO NOT REMOVE THIS DEPARTMENT* [place] [id number] Request, External Referral Disorders of diaphragm* Allergies Active Allergy Reactions Criticality Noted Date Comments Adhesive Tape 10/16/2011 Red pruritic rash with blisters Sulfamethoxazole-Trimethopr im 10/25/2018 Tongue swelling, ulcers in mouth Bee Venom Anaphylaxis High 09/03/2015 Demerol 10/08/2011 Latex Rash 05/27/2020 Morphine 10/08/2011 Sulfa Antibiotics 01/08/2004 Trimethoprim 05/28/2014 documented as of this encounter (statuses as of 02/28/2023) Medications Medication Sig Dispensed Refills Start Date End Date Status FLEXERIL 10 MG PO TABS Take by mouth as needed. 0 Active naloxone (NARCAN NASAL) 4 MG/0.1ML LIQD Administer 0.1 mL into nostril as needed. Administer 1 spray into 1 nostril for suspected opioid overdose. Seek immediate medical attention. [email or web address] 0 Active pramipexole (MIRAPEX) 0.5 MG Tablet [...] and 1 Tablet before bedtime. 0 Active fentaNYL 100 MCG/HR Transdermal Patch 72 Hour (Duragesic) Place 1 Patch over 48 hours topically on the skin every other day. 15 Patch 0 02/05/2023 Active oxyCODONE HCl 5 MG Oral Capsule (Oxy IR) Take 1 Capsule by mouth every 4 hours as needed for Pain, Severe or Pain, Breakthrough. 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 Gastroesophageal reflux disease 04/06/2020 Neck injury 10/10/2011 VERTEBRAL FX NOS-CLOSED 02/25/2004 documented as of this encounter (statuses as of 02/28/2023) Social History Tobacco Use Types Packs/Day Years [...] Description 03/19/2023 1:00 PM EST Office Visit [facility] Gastroenterology[address] [address] Chayito Kidd CRNP [address] [place] [address] Scheduled Referrals Name Type Priority Associated Diagnoses Orde r Schedule THORACIC SURGERY REFERRAL OP Referral Within 10 days (routine) Disorders of diaphragm Ordered: 02/28/2023 Health Maintenance Due Date Last Done Comments [...] as of this encounter Visit Diagnoses Diagnosis Disorders of diaphragm- Primary documented in this encounter Advance Directives Latest Code Status on File Code Status Date Activated Date Inactivated Comments Full Code 10/08/2011 5:12 PM 10/11/2011 5:56 PM Question Answer Comments Discussion of Advance Direct alejandro occurred with: Not Discussed Does the patient have a Living Will? No Does the patient have Health Care Power of Conference Specialist? No Care Teams Die Maker Stamping Relationship Specialty Start Date End Date Francis Rubin CRNP [address] [place] [address] PCP - General Nurse Practitioner 03/15/22 documented as of this encounter
--- OUTSIDE RECORDS SUMMARY | 2023-04-08 23:52 | External Medical Summary | Summary of Care ---
Author Name Unknown Organization [facility] Address [address] [place] [address] Phone [phone] Care Team Providers Care Furniture Associate Name Role Phone Francis Rubin Primary Care Provide r Reason for Visit * Reason Onset Date Comments Referral 03/09/2023 Encounter Details Date Type Department Care Team (Late st Contact Info) Description 03/09/2023 New Patient Triage (VICE PRESIDENT FINANCIAL USE ONLY) Thoracic Surg [place] [address] [place] [address] Julianna Spencer, full stack software developer Allergies Active Allergy Reactions Criticality Noted Date [...] suspected opioid overdose. Seek immediate medical attention. [email or web address] Active pramipexole (MIRAPEX) 0.5 MG Tablet [...] Pain, Breakthrough. 10 Tablet 0 02/16/2023 Active Doxycycline Hyclate 100 MG Oral CapsuleIndications :Tick bite of lower back, initial encounter,Tick bite of left thigh, initial encounter Take 1 Capsule by mouth in the morning and 1 Capsule before bedtime. Do all this for 14 days. Take for 7 days. 28 Capsule 0 03/01/2023 03/15/2023 Active fentaNYL 100 MCG/HR Transdermal Patch 72 [...] as of this encounter Progress Notes * Melvi Tinoco PA-C - 03/12/2023 9:59 AM EST Does patient need to be seen?: Yes Modality: Office visit Urgency: Within 30 days (routine) Discussed care plan with patient or proxy?: Yes Patient contacted by Julianna Spencer RN. Patient is a return. 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 Alvarez but was unable to leave a message due to his mailbox being full. Referred from Dr. King for a disorder of diaphragm 72 year old with severe sleep disorder due to breathing. 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 Uses CPAP at night. He would like to meet with thoracic surgery to dicuss plication surgery. He is a return to see Dr Jhaveri. Dr. Jhaveri meet with this patient 07/13/22 to discuss the same issue. SNIFF test pushed over into stickK as well as any updated CXR and CT. Communicated with patient on Date (mm/dd/yyyy): 02/23/2023 at 1656 Julianna Spencer RN MSN [facility] Thoracic Surgery Nurse Navigator [facility] documented in this encounter Plan of Treatment Upcoming Encounters Date Type Department Care Team (Late st Contact Info) Description 03/19/2023 1:00 PM EST Office Visit [facility] [place] [address] [place] [address] Chayito Kidd CRNP [address] [place] [address] 06/18/2023 1:05 PM EST [facility] [address] [place] [address] Tony Ho DO [address] [place], [place] [phone] Health Maintenance Due Date Last Done Comments [...] the patient have Health Care Power of Pin Inserter Regulator? No Care Teams Furniture Associate Relationship Specialty Start Date End Date Francis Rubin CRNP [address] [place] [address] PCP - General Nurse Practitioner 03/15/22 documented as of this encounter
--- OUTSIDE RECORDS SUMMARY | 2023-04-08 23:52 | External Medical Summary | Summary of Care ---
Author Name Unknown Organization [facility] Address [address] [place] [address] Phone [phone] Care Team Providers Care Distribution Operations Manager Name Role Phone Francis Rubin Primary Care Provide r Encounter Details Date Type Department Care Team (Late st Contact Info) Description 12/28/2022 Orders Only Unspecified Department Francis Rubin CRNP [address] [place], [place] [phone] Allergies Active Allergy Reactions Criticality Noted Date [...] opioid overdose. Seek immediate medical attention. [email or web address] Active pramipexole (MIRAPEX) 0.5 MG Tablet [...] 1:00 PM EST Office Visit [facility], [place] [address] [place] [address] Chayito Kidd CRNP [address] [place] [address] Health Maintenance Due Date Last Done Comments [...] study not interpreted or resulted by a [facility] or [facility] contracted radiologist. [facility] ([facility]) documented in this encounter Advance Directives Latest Code Status on File Code Status Date Activated Date Inactivated Comments Full Code 10/08/2011 5:12 PM 10/11/2011 5:56 PM Question Answer Comments Discussion of Advance Direct alejandro occurred with: Not Discussed Does the patient have a Living Will? No Does the patient have Health Care Power of Shale Planer Operator Helper? No Care Teams Distribution Operations Manager Relationship Specialty Start Date End Date Francis Rubin CRNP [address] [place] [address] PCP - General Nurse Practitioner 03/15/22 documented as of this encounter
--- OUTSIDE RECORDS SUMMARY | 2023-04-08 23:52 | External Medical Summary | Summary of Care ---
Author Name Unknown Organization [facility] Address [address] [place] [address] Phone [phone] Care Team Providers Care Senior Gis Analyst Name Role Phone Francis Rubin Primary Care Provide r Reason for Visit * Reason Onset Date Comments Medication Refill 04/05/2023 Encounter Details Date Type Department Care Team (Late st Contact Info) Description 04/05/2023 Refill [facility] [address] [place], [place] [phone] Tony Dunlap [address] [place], [place] [phone] Allergies Active Allergy Reactions Criticality Noted Date [...] opioid overdose. Seek immediate medical attention. [email or web address] Active pramipexole (MIRAPEX) 0.5 MG Tablet [...] skin every other day. 15 Patch 0 04/05/2023 Active fentaNYL 100 MCG/HR Transdermal Patch 72 [...] encounter Miscellaneous Notes * Telephone Encounter - Tony Dunlap DO - 04/05/2023 9:33 AM ESTSigned Prescriptions: Disp Refills fentaNYL 100 MCG/HR Transdermal Patch 72 H*15 Pat*0 Sig: Place 1Patch over 48 hours topically on the skin every other day.Authorizing Provider: TONY DUNALP- documented in this encounter Plan of Treatment Upcoming Encounters Date Type Department Care Team (Late st Contact Info) Description 04/10/2023 2:35 PM EST Office Visit [facility] [address] [place] [address] Tony Dunlap DO [address] [place] [address] Health Maintenance Due Date Last Done Comments [...] the patient have Health Care Power of Lathe Puller? No Care Teams Senior Gis Analyst Relationship Specialty Start Date End Date Francis Rubin CRNP [address] [place] [address] PCP - General Nurse Practitioner 03/15/22 documented as of this encounter
--- OUTSIDE RECORDS SUMMARY | 2023-04-08 23:52 | External Medical Summary | Summary of Care ---
Author Name Unknown Organization [facility] Address [address] [place] [address] Phone [phone] Care Team Providers Care School Guidance Counselor Name Role Phone Francis Rubin Primary Care Provide r Reason for Visit * Reason Onset Date Comments Medication Refill 03/08/2023 Encounter Details Date Type Department Care Team (Late st Contact Info) Description 03/08/2023 Refill [facility] [address] [place], [place] [phone] Tony Ho [address] [place], [place] [phone] Allergies Active Allergy Reactions Criticality Noted Date Comments Adhesive Tape 10/16/2011 Red pruritic rash with blisters Sulfamethoxazole-Trimethopr im 10/25/2018 Tongue swelling, ulcers in mouth Bee Venom Anaphylaxis High 09/03/2015 Demerol 10/08/2011 Latex Rash 05/27/2020 Morphine 10/08/2011 Sulfa Antibiotics 01/08/2004 Trimethoprim 05/28/2014 documented as of this encounter (statuses as of 03/09/2023) Medications Medication Sig Dispensed Refills Start Date End Date Status FLEXERIL 10 MG PO TABS Take by mouth as needed. 0 Active naloxone (NARCAN NASAL) 4 MG/0.1ML LIQD Administer 0.1 mL into nostril as needed. Administer 1 spray into 1 nostril for suspected opioid overdose. Seek immediate medical attention. [email or web address] Active pramipexole (MIRAPEX) 0.5 MG Tablet [...] 02/16/2023 Active Doxycycline Hyclate 100 MG Oral CapsuleIndication s:Tick bite of lower back, initial encounter,Tick bite of left thigh, initial encounter Take 1 Capsule by mouth in the morning and 1 Capsule before bedtime. Do all this for 14 days. Take for 7 days. 28 Capsule 0 03/01/2023 3 Active fentaNYL 100 MCG/HR Transdermal Patch 72 Hour (Duragesic) Place 1 Patch over 48 hours topically on the skin every other day. 15 Patch 0 03/09/2023 Active fentaNYL 100 MCG/HR Transdermal Patch 72 Hour (Duragesic) Place 1 Patch over 48 hours topically on the skin every other day. 15 Patch 0 02/05/2023 3 Discontinue d(Refill) documented as of this encounter (statuses as of 03/09/2023) Active Problems Problem Noted Date Diagnosed Date Elevated diaphragm 07/13/2022 Gastroesophageal reflux disease 04/06/2020 Neck injury 10/10/2011 VERTEBRAL FX NOS-CLOSED 02/25/2004 documented as of this encounter (statuses as of 03/09/2023) Social History Tobacco Use Types Packs/Day Years [...] encounter Miscellaneous Notes * Telephone Encounter - Chelsea Sweet MD - 03/08/2023 10:[address] Ho is in clinic tomorrow * Telephone Encounter - Chelsea Sweet MD - 03/08/2023 10:25 AM ESTRefused Prescriptions: Disp Refills fentaNYL 100 MCG/HR Transdermal Patch 72 H*15 Pat*0 Sig: Place 1 Patch over 48 hours topically on the skin every other day. Refused By: CHELSEA SWEET Reason for Refusal: Managed by another physician documented in this encounter Plan of Treatment Upcoming Encounters Date Type Department Care Team (Late st Contact Info) Description 03/12/2023 9:00 AM EST Telemedicine Thoracic Surg [facility] [place] [address] Thomas Jhaveri MD [address] [place] [address] 03/19/2023 1:00 PM EST Office Visit [facility], [place] [address] [place] [address] Chayito Kidd CRNP [address] [place] [address] 06/18/2023 1:05 PM EST Office Visit [facility] [address] [place], [place] [phone] Tony Ho DO [address] [place], [place] [phone] Health Maintenance Due Date Last Done Comments [...] the patient have Health Care Power of Barkeeper? No Care Teams School Guidance Counselor Relationship Specialty Start Date End Date Francis Rubin CRNP [address] [place] [address] PCP - General Nurse Practitioner 03/15/22 documented as of this encounter
--- OUTSIDE RECORDS SUMMARY | 2023-04-08 23:52 | External Medical Summary | Summary of Care ---
Author Name Unknown Organization [facility] Address [address] [place] [address] Phone [phone] Care Team Providers Care Coyote Hunter Name Role Phone Francis Rubin Primary Care Provide r Reason for Referral * Evaluate & Treat - Unlimited Visits (Within 30 days (routine)) - Authorized Specialty Diagnoses / Procedures Referred By Contac t Referred To Contact Pulmonary Diseases / Pulmonary Diagnoses Restrictive lung disease Thomas Jhaveri MD [address] [place] [address] Referral ID Status Reason Start Date Expiration Date Visits Requested Visits Authorized [id number] Authorized Specialty Services Required [id number] Question Answer Referral Priority Within 30 days (routine) Where should this appointment be scheduled? [facility] Reason for Referral? Other Comments Restrictive lung disease, including hypercarbia. Patient is seeking a 2nd opinion. He is already well known to Dr. King, at [facility]. Please make this appointment via telemedicine or out West (eg [facility]). Reason for Visit * Reason Comments Follow Up * Evaluate & Treat - Unlimited Visits (Within 10 days (routine)) - Authorized Specialty Diagnoses / Procedures Referred By Contact Referred To Contact Thoracic and Cardiac Surgery / Cardiothoracic Surgery Diagnoses Disorders of diaphragm Sofia Lozano CRNP [address] [place] [address] Referral ID Status Reason Start Date Expiration Date Visits Requested Visits Authorized [id number] Authorized Specialty Services Required 02/28/2023 08/22/2023 [id number] Encounter Details Date Type Department Care Team (Late st Contact Info) Description 03/12/2023 9:00 AM EST Telemedicine Thoracic Surg [facility] [address] [place] [address] TrinyorThomas MD [address] [place] [address] Elevated diaphragm*; Restrictive lung disease Allergies Active Allergy Reactions Criticality Noted Date [...] opioid overdose. Seek immediate medical attention. [email or web address] Active pramipexole (MIRAPEX) 0.5 MG Tablet [...] as of this encounter Progress Notes * Facktor, Thomas A, MD - 03/12/2023 9:07 AM EST THORACIC SURGERY CL[facility]IC @ [facility] 03/12/2023 Last visit = 07/13/2022 After connecting to the patient via telephone, the patient was identified by name and date of . Patient was then informed that this was a telephone call only visit. The patient agreed to participate. Visit Disposition: Routine follow-up (see Plan at the bottom of this note) Total call duration was 22 minutes. Since last visit: Has better overall pain control. He sees Dr. Ho, who manages the pain with fentanyl. [facility] is having [facility] He was told by the [facility] he must have diaphragm surgery. They think the diaphragm is causing hypercarbia This is per Basim and his He has maintained pulmonary follow-up with Dr. King. Dr. King thinks the hypercarbia is multifactorial Restrictive lung disease Obesity Chronic narcotic requirement Dr. King agrees diaphragm plication won't help hypercarbia He underwent cardiac stress testing (negative) He returns out of desperation to get help paying for the fentanyl. He doesn't really want to have any major surgery, especially knowing the risks. Review of our original HPI 07/13/2022: Basim Alvarez is a 71 year old male presenting for evaluation of elevated R hemidiaphragm. Patient and state that patient has been suffering from progressive SOB for many years. They believehis symptoms first began after he was crushed by a hay bale ~20 years ago, causing him to suffer several broken ribs and vertebrae. Patient has since had at least one aspiration event with associatedpneumonia, and has also been suffering from episodes of syncope, delirium and unresponsiveness requiring multiple visits to the ED. Also suffers from severe CHITRA and was recently started on BiPAP after having used a CPAP for several years. Per imaging reivew, patient has had an elevated R hemidiaphragm since at least 01/2004; patient reports he has been following with Dr. King (Pulm) for some timenow, and was referred to our clinic for potential surgical management of this hemidiaphragm elevation. Currently endorses SOB/RATLIFF, but denies chest pain. Has chronic back pain ever since his hay bale accident. Denies nausea, vomiting, dysuria, fever, chills, headache, lightheadedness, changes in vision or hearing, or loss of balance. Allergies: Review of patient's allergies indicates: Allergen [...] suspected opioid overdose. Seek immediate medical attention. [email or web address] pramipexole (MIRAPEX) 0.5 MG Tablet Take 1 [...] Severe or Pain, Breakthrough. 10 Tablet 0 Doxycycline Hyclate 100 MG Oral Capsule Take 1 Capsule by mouth in the morning and 1 Capsule beforebedtime. Do all this for 14 days. Take for 7 days. 28 Capsule 0 fentaNYL 100 MCG/HR Transdermal Patch 72 Hour (Duragesic) Place 1 Patch over 48 hours topically on the skin every other day. 15 Patch 0 No current facility-administered medications for this visit. Patient Active Problem List Diagnosis Code VERTEBRAL FX NOS-CLOSED [id number] Neck injury S19.9XXA Gastroesophageal reflux disease K21.9 Elevated diaphragm J98.6 Past Medical History: Diagnosis Date Adjustment disorder [...] ANESTHESIA performed by Radha Arana MD at [facility] CHEMODENERVATION INTERNAL ANAL SPHINCTER 08/09/2022 CHEMODENERVATION INTERNAL ANAL SPHINCTER performed by Radha Arana MD at [facility] COLONOSCOPY 03/24/2014 normal EGD, FLEXIBLE, DIAGNOSTIC 2003 JTB EXPLORE PENETRATING WOUND, NECK 10/08/2011 EXPLORATION OF PENETRATING WOUND NECK performed by Feliz Guidry MD at [facility] INJECT DX/THER SUBSTANCE INTERLAMINAR LUMBAR/SACRAL W IMAGE GUIDE 06/26/2016 INJECTION SPINE LUMBAR OR SACRAL performed by Evart Miquel Gaona, DO at [facility] INJECTION LUMBAR/SACRAL 09/03/2015 INJECTION SPINE LUMBAR OR SACRAL performed by [facility] Jimenez, DO at [facility] INJECTION LUMBAR/SACRAL 10/26/2015 INJECTION SPINE LUMBAR OR SACRAL performed by [facility] Jimenez, DO at [facility] INJECTION LUMBAR/SACRAL 03/02/2016 INJECTION SPINE LUMBAR OR SACRAL performed by [facility] Jimenez, DO at [facility] LIGATION OF EXTERNAL CAROTID ARTERY 10/08/2011 LIGATION EXTERNAL CAROTID ARTERY performed by Feliz Guidry MD at [facility] Social History Socioeconomic History Marital status: Tobacco Use Smoking status: Former Smokeless tobacco: Never Tobacco comments: Quit 20-25 years ago Vaping Use Vaping Use: Never used Substance and Sexual Activity Alcohol use: No Drug use: No Family History Problem Relation Age of Onset Breast Cancer Mother Dementia Father REVIEW OF SYSTEMS: Any pertinent positives are noted in the HPI; all others are negative. PHYSICAL EXAM: There were no vitals filed for this visit. There is no height or weight on file to calculate BMI. Exam deferred -- telephonic and/or telemedicine encounter. IMAGING: I independently interpreted the images and reports of the following studies today, 03/12/2023: 12/28/2022 CXR ([facility]): -- elevated right hemidiaphragm 11/22/2022 CXR ([facility]): -- elevated right hemidiaphragm 06/17/2022 CXR ([facility]): -- elevated right hemidiaphragm 06/11/2022 CT Chest ([facility]): -- elevated right hemidiaphragm 09/30/2011 CXR: -- elevated right hemidiaphragm 12/27/2003 CXR: -- elevated right hemidiaphragm PHYSIOLOGY: 07/27/2022 Dobutamine Stress ECHO ([facility]): -- no inducible ischemia -- normal LV size and systolic function -- Stage I diastolic dysfunction ASSESSMENT: 1. Originally referred to us from [facility] for evaluation and management of a chronically elevated right hemidiaphragm. 2. Multiple additional significant medical co-morbidities, including hypercarbia that is likely multifactorial as per pulmonary assessment by Dr. King at [facility]. He would be very high risk for any major surgery, including thoracic surgery, given comorbidities and limited performance status. 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 3. We discussed the potential role of diaphragm plication again today, just as we did almost 8 months ago in the office. He is actually feeling better now with his overall pain management improved. 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 His performance status remains limited, but it is improved to the point of being able to function productively now. He is not particularly interested in having any major surgery, including diaphragm plication, but he just wants to be able toafford the fentanyl as prescribed by Dr. Ho. We reviewed my significant concerns in regard to very high surgical risks (severe baseline pulmonary disease plus limited performance status) with a relatively low expected clinical benefit (palliation of exertional dyspnea). Diaphragm plication would likely have no effect upon hypercarbia, which is a metabolic issue and not a mechanical issue. 4. My recommendation remains the same as previous, and that is to avoid any major diaphragm surgery. I recommended ongoing pulmonary follow-up with Dr. King and they are agreeable. They also asked ifhe could get a pulmonary second opinion at [facility] just in case it helps find a more durable solution to the hypercarbia. They readily acknowledge the complexity of Basim's case and are just looking for any further help. PLAN: 1. No diaphragm surgery -- risks significantly outweigh any potential benefits, and plication is not going to improve hypercarbia, regardless. He is grateful to be assured the surgery is not necessary. 2. [facility] Pulmonary referral placed today (second opinion per his request), but I also encouraged him to maintain follow-up with Dr. King, who already knows him well. 3. No return visit. 4. All questions answered to apparent satisfaction. Thomas Jhaveri MD FACS System Chief, Thoracic Surgery [facility] [place] [address] [place] [address] documented in this encounter Plan of Treatment Upcoming Encounters Date Type Department Care Team (Late st Contact Info) Description 03/19/2023 1:00 PM EST [facility] [address] [place] [address] Chayito Kidd CRNP [address] [place] [address] 06/18/2023 1:05 PM EST Office Visit [facility] [address] [place] [address] Tony Ho DO [address] [place] [address] Scheduled Referrals Name Type Priority Associated Diagnoses [...] as of this encounter Visit Diagnoses Diagnosis Elevated diaphragm- Primary Disorders of diaphragm Restrictive lung disease Other diseases of lung, not elsewhere classified documented in this encounter Advance Directives Latest Code Status on File Code Status Date Activated Date Inactivated Comments Full Code 10/08/2011 5:12 PM 10/11/2011 5:56 PM Question Answer Comments Discussion of Advance Direct alejandro occurred with: Not Discussed Does the patient have a Living Will? No Does the patient have Health Care Power of Property Condition Assessor? No Care Teams Coyote Hunter Relationship Specialty Start Date End Date Francis Rubin CRNP [address] [place] [address] PCP - General Nurse Practitioner 03/15/22 documented as of this encounter
--- OUTSIDE RECORDS SUMMARY | 2023-04-08 23:52 | External Medical Summary | Summary of Care ---
Author Name Unknown Organization [facility] Address [address] [place] [address] Phone [phone] Care Team Providers Care Casing Sewer Name Role Phone Francis Rubin Primary Care Provide r Reason for Visit * Reason Comments Tick Bite Tick noted to be emb edded left inner upper thigh region. Easily removed in full using tick twister. Pt. Also had tick on left lateral belt line region. Tick was removed with tweezers Appears to have retained particle in site. Both areas very sore. * Auth/Cert Specialty Diagnoses / Procedures Referred By Graham t Referred To Contact Referral ID Status Reason Start Date Expiration Date Visits Re quested Visits Authorized [id number] Encounter Details Date Type Department Care Team (Late st Contact Info) Description 03/01/2023 3:50 PM EST [facility] [place] [address] [place] [id number] Jackeline Watkins PA-C [address] [place] [phone] Tick bite of lower back, initial encounter*; Tick bite of left thigh, initial encounter Allergies Active Allergy Reactions Criticality Noted Date Comments Adhesive Tape 10/16/2011 Red pruritic rash with blisters Sulfamethoxazole-Trimethopr im 10/25/2018 Tongue swelling, ulcers in mouth Bee Venom Anaphylaxis High 09/03/2015 Demerol 10/08/2011 Latex Rash 05/27/2020 Morphine 10/08/2011 Sulfa Antibiotics 01/08/2004 Trimethoprim 05/28/2014 documented as of this encounter (statuses as of 03/01/2023) Medications Medication Sig Dispensed Refills Start Date End Date Status FLEXERIL 10 MG PO TABS Take by mouth as needed. 0 Active naloxone (NARCAN NASAL) 4 MG/0.1ML LIQD Administer 0.1 mL into nostril as needed. Administer 1 spray into 1 nostril for suspected opioid overdose. Seek immediate medical attention. http://[email or web address] Active pramipexole (MIRAPEX) 0.5 MG Tablet [...] 1 Tablet before bedtime. 0 07/12/2022 Active fentaNYL 100 MCG/HR Transdermal Patch 72 [...] days. 28 Capsule 0 03/01/2023 3 Active Gabapentin 300 MG Oral Capsule (Neurontin) Take 1 Capsule by mouth in the morning and 1 Capsule at noon and 1 Capsule before bedtime. 0 3 Discontinue d(Medicatio n List Clean Up) Doxycycline Hyclate 100 MG Oral Tablet Delayed Release Take 1 Tablet by mouth in the morning and 1 Tablet before bedtime. 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 Gastroesophageal reflux disease 04/06/2020 Neck injury 10/10/2011 VERTEBRAL FX NOS-CLOSED 02/25/2004 documented as of this encounter (statuses as of 03/01/2023) Social History Tobacco Use Types Packs/Day Years [...] Sign Reading Time Taken Comments Blood Pressure 121/81 03/01/2023 4:03 PM EST Pulse 101 03/01/2023 4:03 PM EST Temperature 36.9 C (98.4 F) 03/01/2023 4:03 PM ES T Respiratory Rate 18 03/01/2023 4:03 PM EST Oxygen Saturation 96% 03/01/2023 4:03 PM EST Inhaled Oxygen Concentration - - Weight - - Height - - Body Mass Index - - documented in this encounter Progress Notes * Jackeline Watkins PA-C - 03/01/2023 7:29 PM ESTAssociated Order(s): Foreign Body Images from the original note were not included. Subjective: Basim Alvarez is a 72 year old male. Chief Complaint Patient presents with Tick Bite Tick noted to be embedded left inner upper thigh region. Easily removed in full using tick twister.Pt. Also had tick on left lateral belt line region. Tick was removed with tweezers Appears to have retained particle in site. Both areas very sore. HPI: Here today for eval of multiple tick bites. Removed a tick from his left low back, does not think he removed the entire tick. Unsure how long it was present. Today noticed a tick on his left medial thigh, still intact. Both are sore and red. 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 Aspirin 81 MG Oral Tablet Delayed Release take 1 tablet by oral route every day Dicyclomine HCl 10 MG Oral Capsule (BENTYL) Take 1 Capsule by mouth 4 times a day as needed (abdominal pain). 120 Cap 2 Doxycycline Hyclate 100 MG Oral Capsule Take 1 Capsule by mouth in the morning and 1 Capsule beforebedtime. Do all this for 14 days. Take for 7 days. 28 Capsule 0 EpiPen 2-Robb 0.3 MG/0.3ML Injection Solution Auto-injector Inject 0.3 mg into a large muscle. fentaNYL 100 MCG/HR Transdermal Patch 72 Hour (Duragesic) Place 1 Patch over 48 hours topically on the skin every other day. 15 Patch 0 FLEXERIL 10 MG PO TABS Take by mouth as needed. Lidocaine 5 % External Patch (Lidoderm) Place 1 Patch topically on the skin as needed. Metoprolol Tartrate 25 MG Oral Tablet (Lopressor) Take 1 Tablet by mouth in the morning and 1 Tablet before bedtime. naloxone (NARCAN NASAL) 4 MG/0.1ML LIQD Administer 0.1 mL into nostril as needed. Administer 1 spray into 1 nostril for suspected opioid overdose. Seek immediate medical attention. http://[email or web address].[email or web address] Omeprazole 20 MG Oral Capsule Delayed Release (PriLOSEC) Take 1 Capsule by mouth in the morning. Ondansetron HCl 4 MG Oral Tablet (Zofran) Take 1 Tablet by mouth every 8 hours as needed for Nausea. oxyCODONE HCl 5 MG Oral Capsule (Oxy IR) Take 1 Capsule by mouth every 4 hours as needed for Pain, Severe or Pain, Breakthrough. 10 Tablet 0 pramipexole (MIRAPEX) 0.5 MG Tablet Take 1 Tablet by mouth at bedtime. Pravastatin Sodium 40 MG Oral Tablet Take 1 Tablet by mouth in the morning. 1/2 tablet before bed . Tadalafil 20 MG Oral Tablet Take 1 Tablet by mouth as needed. Testosterone 1.62 % Transdermal Gel AT BEDTIME Vitamin C 1000 MG Oral Tablet Take 1 Tablet by mouth in the morning. Vitamin D3 25 MCG (1000 UT) Oral Capsule Take by mouth daily. No current facility-administered medications for this visit. Review of patient's allergies indicates: Allergen Reactions Bee Venom Anaphylaxis Adhesive Tape Red pruritic rash with blisters Bactrim [Sulfamethoxazole-Trimethoprim] Tongue swelling, ulcers in mouth Demerol Latex Rash Morphine Sulfa Antibiotics Trimethoprim ROS: all areas negative except as mentioned under HPI Physical Exam: BP 121/81 | Pulse 101 | Temp 36.9 C (98.4 F) (Skin) | Resp 18 | SpO2 96% Physical Exam Vitals and nursing note reviewed. Constitutional: General: He is not in acute distress. Appearance: Normal appearance. He is not ill-appearing. HENT: Head: Normocephalic and atraumatic. Cardiovascular: Rate and Rhythm: Normal rate. Pulmonary: Effort: Pulmonary effort is normal. No respiratory distress. Skin: General: Skin is warm and dry. Comments: Erythema on left low back with small piece of tick still present, removed with splinter forceps. Erythematous circular area on left medial thigh with tick intact. Neurological: Mental Status: He is alert and oriented to person, place, and time. Psychiatric: Mood and Affect: Mood normal. Behavior: Behavior normal. Basim Alvarez is a 72 year old male patient. ICD-10-CM 1. Tick bite of lower back, initial encounter S30.860A W57.XXXA 2. Tick bite of left thigh, initial encounter S70.362A W57.XXXA Past Medical History: Diagnosis Date Adjustment disorder [...] styloid tenosynovitis Radiculopathy, cervical region Tinea unguium Blood pressure 121/81, pulse 101, temperature 36.9 C (98.4 F), temperature source Skin, resp. rate 18, SpO2 96%. Foreign Body Date/Time: 03/01/2023 7:31 PM Performed by: Jackeline Watkins PA-C Authorized by: Jackeline Watkins PA-C Body area: skin General location: lower extremity Location details: left upper leg 1 objects recovered. Objects recovered: tick Post-procedure assessment: foreign body removed Patient tolerance: patient tolerated the procedure well with no immediate complications Jackeline Watkins PA-C 03/01/2023 Assessment/Plan: Basim was seen today for tick bite. Diagnoses and all orders for this visit: Tick bite of lower back, initial encounter - Doxycycline Hyclate 100 MG Oral Capsule; Take 1 Capsule by mouth in the morning and 1 Capsule before bedtime. Do all this for 14 days. Take for 7 days. Tick bite of left thigh, initial encounter - Doxycycline Hyclate 100 MG Oral Capsule; Take 1 Capsule by mouth in the morning and 1 Capsule before bedtime. Do all this for 14 days. Take for 7 days. Supportive care discussed. Strict return/ED precautions given, pt agreeable to plan. Jackeline Watkins PA-C [facility] [address] [phone] documented in this encounter Nursing Notes * Alyssa Renee RN - 03/01/2023 4:01 PM EST Nursing Notes: CC: Chief Complaint Patient presents with Tick Bite Tick noted to be embedded left inner upper thigh region. Easily removed in full using tick twister.Pt. Also had tick on left lateral belt line region. Tick was removed with tweezers Appears to have retained particle in site. Both areas very sore. Brief Hx: History of tick bites in past. No Lymes. Pt. Had minor surgery to right upper arm to remove tick. Pt. Also has bump left axilla area where tick was previously remove. Duration/Onset: Pt. Was recently in the field[place] OTC meds: nothing Accompanied by: documented in this encounter Plan of Treatment Upcoming Encounters Date Type Department Care Team (Late st Contact Info) Description 03/19/2023 1:00 PM EST Office Visit [facility] [place] [address], [place] [id number] Chayito Kidd CRNP [address] [place] [address] Health Maintenance Due Date Last Done Comments [...] Procedure Name Priority Date/Time Associated Diagnosis Comments PROCDOC FOREIGN BODY Routine 03/01/2023 7:31 PM EST Tick bite of left thigh, initial encounter documented in this encounter Results * Foreign Body (03/01/2023 7:31 PM EST) Narrative Jackeline Watkins PA-C - 03/01/2023 7:31 PM EST Jackeline Watkins PA-C 03/01/2023 7:32 PM Foreign Body Date/Time: 03/01/2023 7:31 PM Performed by: Jackeline Watkins PA-C Authorized by: Jackeline Watkins PA-C Body area: skin General location: lower extremity Location details: left upper leg 1 objects recovered. Objects recovered: tick Post-procedure assessment: foreign body removed Patient tolerance: patient tolerated the procedure well with no immediate complications Jackeline Watkins PA-C PROCDOC FORM documented in this encounter Visit Diagnoses Diagnosis Tick bite of lower back, initial encounter- Primary Tick bite of left thigh, initial encounter documented in this encounter Advance Directives Latest Code Status on File Code Status Date Activated Date Inactivated Comments Full Code 10/08/2011 5:12 PM 10/11/2011 5:56 PM Question Answer Comments Discussion of Advance Direct alejandro occurred with: Not Discussed Does the patient have a Living Will? No Does the patient have Health Care Power of Digital Media Director? No Care Teams Casing Sewer Relationship Specialty Start Date End Date Francis Rubin CRNP [address] [facility] [place] [address] PCP - General Nurse Practitioner 03/15/22 documented as of this encounter"
--- OUTSIDE RECORDS SUMMARY | 2023-04-08 23:52 | External Medical Summary | Summary of Care ---
Author Name Unknown Organization [facility] Address [address] [place] [address] Phone [phone] Care Team Providers Care Automatic Wheel Line Operator Name Role Phone Francis Rubin Primary Care Provide r Reason for Visit * Reason Onset Date Comments Appointment 02/23/[address] King Encounter Details Date Type Department Care Team (Late st Contact Info) Description 02/23/2023 Telephone Thoracic Surg [facility] [address] [place] [address] Julianna Spencer, RN Appointment (Referral back from Dr. King) Allergies Active Allergy Reactions Criticality Noted Date Comments Adhesive Tape 10/16/2011 Red pruritic rash with blisters Sulfamethoxazole-Trimethopr im 10/25/2018 Tongue swelling, ulcers in mouth Bee Venom Anaphylaxis High 09/03/2015 Demerol 10/08/2011 Latex Rash 05/27/2020 Morphine 10/08/2011 Sulfa Antibiotics 01/08/2004 Trimethoprim 05/28/2014 documented as of this encounter (statuses as of 02/23/2023) Medications Medication Sig Dispensed Refills Start Date End Date Status FLEXERIL 10 MG PO TABS Take by mouth as needed. 0 Active naloxone (NARCAN NASAL) 4 MG/0.1ML LIQD Administer 0.1 mL into nostril as needed. Administer 1 spray into 1 nostril for suspected opioid overdose. Seek immediate medical attention. 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 Dr. King reached back out for Dr. Jhaveri to see patient again, per patient's request. Last we saw was 07/13/22 to discuss his elevated hemidiaphragm. Patient would like to discuss surgical plication again. Will continue to try to reach to schedule Julianna Spencer RN MSN [facility] Thoracic Surgery Nurse Navigator [facility] documented in this encounter Plan of Treatment Upcoming Encounters Date Type Department Care Team (Late st Contact Info) Description 03/19/2023 1:00 PM EST [facility] [address] [place] [address] Chayito Kidd CRNP [address] [place] [address] Health Maintenance Due Date Last Done Comments [...] the patient have Health Care Power of Field Marketing Associate? No Care Teams Automatic Wheel Line Operator Relationship Specialty Start Date End Date Francis Rubin CRNP [address] [facility] [place] [address] PCP - General Nurse Practitioner 03/15/22 documented as of this encounter
[2023-04-09 00:54] LABS: Base Excess VBG 5.3 mEq/L; HCO3 VBG 34 mmol/L; Oxygen Saturation VBG < 60.0 %; PCO2 VBG 65 mmHg (38-50); PO2 VBG 37 mmHg; pH VBG 7.32 (7.36-7.41)
[2023-04-09 01:01] LABS: Basophils # (auto) 0.05 K/uL (0.00-0.20); Basophils % (auto) 0.6 %; Eosinophils # (auto) 0.05 K/uL (0.00-0.50); Eosinophils % (auto) 0.6 %; Hematocrit (blood only) 47.4 % (42.0-52.0); Hemoglobin 16.1 g/dl (14.0-18.0); Immature Granulocytes # (auto) 0.04 K/uL (0.01-0.20); Immature Granulocytes % (auto) 0.5 %; Lymphocytes # (auto) 0.86 K/uL (1.20-3.40); Lymphocytes % (auto) 11.1 %; Mean Corpuscular Hemoglobin 31.4 pg (25.0-34.0); Mean Corpuscular Volume 92.6 fL (80.0-100.0); Mean Platelet Volume 9.2 fL (9.4-12.4); Monocytes # (auto) 1.07 K/uL (0.11-0.59); Monocytes % (auto) 13.9 %; Neutrophils # (auto) 5.65 K/uL (1.40-6.50); Neutrophils % (auto) 73.3 %; Platelet Count 247 K/uL (130-400); RDW Standard Deviation 48.1 fL (36.4-46.3); Red Blood Count 5.12 M/uL (4.70-6.10); White Blood Count 7.72 K/ul (4.8-10.8)
[2023-04-09 01:19] LABS: Alanine Aminotransferase 17 U/L (7-52); Albumin Globulin Ratio 1.3 (0.9-2); Albumin Level 4.3 gm/dl (3.4-5.0); Alkaline Phosphatase 54 U/L (34-104); Anion Gap 5 (3-11); Aspartate Aminotransferase 19 U/L (13-39); BUN Creatinine Ratio 14.3 (10-20); Bilirubin,Total 1.3 mg/dl (0.2-1.0); Blood Urea Nitrogen 15 mg/dl (6-23); Calcium 8.9 mg/dl (8.6-10.3); Carbon Dioxide 32 mmol/L (21-32); Chloride 98 mmol/L (98-107); Est GFR (African American) 82.4 ml/min; Est GFR (Non-African American) 71.1 ml/min; Globulin 3.2 gm/dl (2.5-4.0); Glucose 104 mg/dl (70-99(Fasting)); Magnesium 1.7 mg/dl (1.7-2.4); Potassium 4.2 mmol/L (3.5-5.1); Sodium 135 mmol/L (136-145); Total Protein 7.5 gm/dl (6.0-8.3)
[2023-04-09 01:25] LABS: Troponin I High Sensitivity 11.6 pg/ml (0-20)
[2023-04-09 01:30] LABS: Adenovirus PCR Not Detected (NotDetected); Bordetella parapertussis PCR Not Detected (NotDetected); Bordetella pertussis PCR Not Detected (NotDetected); Chlamydia pneumoniae PCR Not Detected (NotDetected); Coronavirus 229E PCR Not Detected (NotDetected); Coronavirus HKU1 PCR Not Detected (NotDetected); Coronavirus NL63 PCR Not Detected (NotDetected); Coronavirus OC43PCR Not Detected (NotDetected); Human Metapneumovirus PCR Not Detected (NotDetected); Influenza A PCR Not Detected (NotDetected); Influenza B PCR Not Detected (NotDetected); Mycoplasma pneumoniae PCR Not Detected (NotDetected); Parainfluenza Virus 1 PCR Not Detected (NotDetected); Parainfluenza Virus 2 PCR Not Detected (NotDetected); Parainfluenza Virus 3 PCR Not Detected (NotDetected); Parainfluenza Virus 4 PCR Not Detected (NotDetected); Respiratory Syncytial VirusPCR Not Detected (NotDetected); Rhinovirus/Enterovirus PCR Not Detected (NotDetected)
[2023-04-09 01:34] LABS: Coronavirus CoV-2 (COVID19)PCR DETECTED (NotDetected)
[2023-04-09 01:36] LABS: Partial Thromboplastin Ratio 0.9; Partial Thromboplastin Time 26 Seconds (21-31); Prothrombin Time 11.4 Seconds (9.0-12.0)
[2023-04-09] MEDS ORDERED: dexAMETHasone**PF** 10 MG/ML VIAL IV ONE (02:28)
[2023-04-09] MEDS ORDERED: ALBUTEROL 0.083% NEBU SOLN 3 ML VIAL NEB PRN (03:01)
[2023-04-09] MEDS ORDERED: REMDESIVIR 200 MG in SODIUM CHLORIDE 0.9% 210 ML IV STA (03:01)
--- NOTE | 2023-04-09 03:23 | History & Physical Report ---
Date of Service April 09, 2023 Assessment & Plan (1) Sepsis: Plan: The patient has impending clinical sepsis. Patient has hypotension in the setting of acute hypercapnic hypoxemic respiratory failure secondary to exacerbation of COPD secondary to acute COVID- 19 infection. 500 cc bolus of normal saline and then maintenance fluids. Blood cultures have been obtained (2) Acute respiratory failure with hypoxia and hypercarbia: Plan: Patient's oxygen dependent at home at night and as needed during the day. He has acute on chronic hypercapnic hypoxemic respiratory failure with initiated BiPAP. Will monitor carefully (3) Acute exacerbation of chronic obstructive pulmonary disease: Plan: Secondary to acute COVID-19 infection -IV steroids and nebulizers. (4) COVID-19: Plan: Acute COVID-19 infection with hypoxemia with acute hypoxemic hypercapnic respiratory failure with history of chronic hypoxemic hypercapnic respiratory failure. IV remdesivir IV Decadron and nebulizers. Sputum cultures. We will cover for possible superimposed bacterial pneumonia with IV Rocephin and IV azithromycin for now -checks x-ray does not reveal any zhen infiltrate but the patient does appear somewhat dry and sometimes a chest x-ray lags behind the clinical presentation. (5) Obstructive sleep apnea: Plan: The patient reports he does wear BiPAP at night. Plan As described above. Please refer to orders for further planning. History of Present Illness Chief Complaint: Shortness of breath increasing oxygen demand Primary Care Provider: [facility] This is a pleasant 72-year-old male who is oxygen dependent at home at 2 L at night and as needed during the day with a history of advanced age COPD follows with pulmonary as an outpatient. Over the last few days she has had increasing shortness of breath to the point where he came to the ER for further evaluation and treatment today. He typically wears 2 L of oxygen at home he was in the 80th percentile with his oxygen saturations he had to be titrated to 6 L. In the ER the patient was identified to have acute COVID-19. He was hypotensive at 90/54 pulse 60 respirations initially at 28. We were called to asked admit the patient for further evaluation and treatment. The patient had received increased oxygen therapy in the ER at the time for the request. He recommended stat steroids stat remdesivir stat nebulizers blood cultures have been obtained. Will treat with Rocephin and azithromycin for possible superimposed pneumonia not showing up on checks x-ray but the patient is dehydrated were given a stat 500 cc bolus of saline with fluids as well given the sepsis with hypotension and tachypnea in the setting of acute COVID-19 infection question possible underlying bacterial pneumonia. I did speak with the patient by telephone to interview him prior to going to examine him in his room personally as described below. Allergies Allergy/AdvReac Type Severity Reaction Status Date / Time bee venom protein (honey bee) Allergy Severe EXCESSIVE Verified 04/09/23 02:01 SWELLING AT SITE sulfamethoxazole Allergy Severe TONGUE Verified 04/09/23 02:01 SWELLS, WHITE BLISTERS IN MOUTH. trimethoprim Allergy Severe TONGUE Verified 04/09/23 02:01 SWELLS, WHITE BLISTERS IN MOUTH. adhesive Allergy Intermediate SKIN Verified 04/09/23 02:01 IRRITATION morphine AdvReac Intermediate PROJECTILE Verified 04/09/23 02:01 VOMITING Home Medications Medication Instructions Recorded Confirmed Type cyclobenzaprine 10 mg tablet 10 mg PO HS 02/28/19 04/09/23 History omeprazole 20 mg capsule,delayed 20 mg PO HS 02/28/19 04/09/23 History release ondansetron 4 mg disintegrating 4 mg PO Q8H PRN Nausea And Vomiting 04/10/19 04/09/23 History tablet dicyclomine 10 mg capsule 10 mg PO BID PRN ABD PAIN 02/12/20 04/09/23 History aspirin 81 mg tablet,delayed 81 mg PO HS 02/22/22 04/09/23 History release (Alice Low Dose Aspirin) pramipexole 0.5 mg tablet 0.5 mg PO HS #20 tabs 07/24/22 04/09/23 Rx mecobalamin (vitamin B12) 1,000 1,000 mcg PO HS 07/26/22 04/09/23 History mcg chewable tablet pravastatin 40 mg tablet 20 mg PO HS 12/04/22 04/09/23 History sildenafil 100 mg tablet 100 mg PO DAILY PRN sexual activity 12/04/22 04/09/23 History testosterone (AndroGel) 2 pump topical HS #75 grams 12/07/22 04/09/23 Rx fluticasone propionate 50 1 spray intranasal BID PRN 12/28/22 04/09/23 History mcg/actuation nasal Congestion spray,suspension (Flonase Allergy Relief) metoprolol succinate 25 mg 25 mg PO HS 12/28/22 04/09/23 History tablet,extended release 24 hr cholecalciferol (vitamin D3) 25 1,000 unit PO HS 01/19/23 04/09/23 History mcg (1,000 unit) capsule alfuzosin 10 mg tablet,extended 10 mg PO DAILY #30 tabs 02/13/23 04/09/23 Rx release 24 hr fentanyl 100 mcg/hr transdermal 1 patch topical .Q48HRS 04/09/23 04/09/23 History patch Past Med/Surg History Medical History (Updated 04/09/23 @ 03:20 by Eliel Calzada, PhD, DO) COVID-19 Sepsis BPH with obstruction/lower urinary tract symptoms Dysuria Iron deficiency Acute opioid withdrawal Accidental overdose Pituitary dysfunction Diaphragmatic disorder Restrictive lung disease SVT (supraventricular tachycardia) Pneumonia RLS (restless legs syndrome) Severe obstructive sleep apnea History of acute renal failure BPH (benign prostatic hyperplasia) Prostatitis Recurrent pneumonia Non-ST elevation AL (NSTEMI) Depression GERD (gastroesophageal reflux disease) Chronic back pain Hypertension Surgical History History of mandibular surgery History of carpal tunnel release History of surgery mass removed from left side of clavicle History of ankle surgery Britton reconstruction-right side Status post trigger finger release Family History Mother Cancer Hypertension Myasthenia gravis Breast cancer Son Environmental allergies Asthma Sister Gallbladder disease Father Alzheimer disease Grandmother (Maternal) Colorectal cancer Family/Other Myocardial infarction Other No family history of bleeding disorder Denies family history of Ovarian cancer Prostate cancer Social History Smoking Status: Former smoker Tobacco Type: Cigarettes Second Hand Exposure: No; Do You Dip or Chew Tobacco: No; Hx Alcohol Use: No Hx Substance Use: No Preferred Language: French Communication Ability: Effective Photo Printer Required: No Beliefs That Will Affect Care: None marital status: Current Living Situation: Spouse current occupational status: retired Feels Safe at Home: Yes Childhood Exposure to Second-Hand Smoke: Yes Dental Care, Regularly: No Physical Activity Frequency: Does not Exercise Seatbelt Use: never Sunscreen Use: Yes Assistive Devices: Cane, CPAP, Oxygen - at Night and Walker Review of Systems Review of Systems: A 10 point review of system was obtained and unless otherwise stated here or in history of present illness are negative and noncontributory to chief complaint. Physical Exam Physical Exam: In general: This is a 72-year-old male he is alert and oriented x 3 he interacts appropriately. HEENT: Normocephalic atraumatic pupils are equal round and reactive to light bilaterally. No scleral icterus no conjunctival injection external auditory canals are patent septum is in the midline nose is without discharge oral mucosa is pink and dry without lesion. NECK: Supple no rigidity no lymphadenopathy no thyromegaly no carotid bruits no JVD no masses. HEART: Regular rate and rhythm I do not appreciate any ectopy or rub. No murmur. LUNGS: Lungs are coarse bilaterally with expiratory wheezes and rhonchi. ABDOMEN: Soft nontender, no rebound, no peritoneal signs, positive bowel sounds, no appreciable organomegaly. EXTREMITIES: Intact, no peripheral cyanosis, clubbing or edema. Strength is 5 out of 5 in extremities x4, no pathological reflexes. NEUROLOGICAL: Cranial nerves II through XII are grossly intact with no focal deficit elicited upon examination. No tremor. Results & Data Results & Data Vital Signs (Past 12 Hours) Vital Signs Temp Pulse Resp BP Pulse Ox O2 Del Method O2 Flow Rate 04/09/23 02:39 37.2 C 04/09/23 02:30 60 15 99 Nasal Cannula 3 04/09/23 02:15 61 19 90/54 L 96 Nasal Cannula 3 04/09/23 02:00 59 L 16 104/64 98 Nasal Cannula 3 04/09/23 01:46 61 15 100/57 L 96 Nasal Cannula 3 04/09/23 01:31 61 16 90/52 L 97 Nasal Cannula 3 04/09/23 01:15 59 L 15 111/72 98 Nasal Cannula 3 04/09/23 01:11 59 L 14 123/61 98 Nasal Cannula 3 04/09/23 01:00 60 16 97 Nasal Cannula 3 04/09/23 00:30 60 15 100 Nasal Cannula 3 04/09/23 00:17 59 L 04/09/23 00:07 98 Nasal Cannula 3 04/09/23 00:07 98 Nasal Cannula 3 04/08/23 23:52 37.1 C 73 28 H 114/65 Code Status & VTE Plan Code Status Full code I discussed this with him extensively on the telephone. VTE Prophylaxis Plan VTE Prophylaxis will be ordered: Yes PG Care Time/CCT Total # of Minutes Spent Total Time Spent with Patient: Total time spent is greater than 50% in coordination of care (as documented) at patient's floor/unit and/or counseling patient: Coding Level of Care Code 09620 INT INP/OBS CARE 3/75MIN Diagnoses Sepsis A41.9 Acute respiratory failure with hypoxia and hypercarbia J96.01; J96.02 Acute exacerbation of chronic obstructive pulmonary disease J44.1 COVID-19 U07.1 Obstructive sleep apnea G47.33
[2023-04-09] MEDS ORDERED: FLUTICASONE PROPIONATE NA SPR 16 GM BTL PRN (03:36)
[2023-04-09] MEDS ORDERED: DICYCLOMINE HCL 10 MG CAP PO PRN (03:36)
[2023-04-09] MEDS ORDERED: SODIUM CHLORIDE 0.9% 1,000 ML IV STA (03:36)
[2023-04-09] MEDS ORDERED: ACETAMINOPHEN 325 MG TAB PO PRN (03:36)
[2023-04-09] MEDS ORDERED: SODIUM CHLORIDE 0.9% 250 ML IV STA (03:37)
[2023-04-09] MEDS ORDERED: ENOXAPARIN INJ 40 MG/0.4 ML SYR SQ STA (03:45)
[2023-04-09 04:11] LABS: iSTAT Arterial Blood Gas HCO3 29 meg/L (19-24); iSTAT Arterial Blood Gas pCO2 52 mmHg (35-46); iSTAT Arterial Blood Gas pH 7.35 (7.35-7.45); iSTAT Arterial Blood Gas pO2 82 mmHg (80-95); iSTAT Carbon Dioxide 30 mmol/L (24-31); iSTAT Hematocrit 41 % (42-52); iSTAT Hemoglobin 13.9 g/dl (14.0-18.0); iSTAT Potassium 4.1 mmol/L (3.3-5.0); iSTAT Sodium 136 mmol/L (135-144)
[2023-04-09 04:37] LABS: Appearance Urine Clear (Clear); Bilirubin Urine Negative (Negative); Blood Urine Negative (Negative); Color Urine Yellow; Glucose Urine UA Negative (Negative); Ketones Urine Negative (Negative); Leukocyte Esterase Urine Negative (Negative); Nitrite Urine Negative (Negative); Protein Urine Negative (Negative); Specific Gravity Urine 1.018 (1.000-1.030); Urobilinogen Urine Negative (Negative); pH Urine 5.5 (4.5-7.5)
[2023-04-09] MEDS: CHECK fentaNYL PATCH PLACEMENT SCH ×3 (04:39→15:08)
[2023-04-09] MEDS: cefTRIAXone SODIUM 2,000 MG in DEXTROSE 5 % MINI-B 50 ML IV SCH (04:39)
[2023-04-09 05:10] LABS: Amphetamines+Metham, Urine Neg (Neg); Barbiturates, Urine Neg (Neg); Benzodiazepine, Urine Neg (Neg); Cocaine, Urine Neg (Neg); MDMA (Ecstacy), Urine Neg (Neg); Marijuana, Urine Neg (Neg); Methadone, Urine Neg (Neg); Opiate, Urine Neg (Neg); Phencyclidine, Urine Neg (Neg)
[2023-04-09] MEDS: AZITHROMYCIN 500 MG in DEXTROSE 5% 250 ML IV SCH (05:31)
--- NOTE | 2023-04-09 06:32 | Emergency Department Note ---
History of Present Illness General Chief complaint: Respiratory Problems Stated complaint: OXYGEN IS DOWN, CO2 POSSIBLY UP Time Seen by Provider: 04/08/23 23:59 History of Present Illness Maximum Pain Intensity: 5 This is a 72-year-old male presenting to the emergency department for evaluation of breathing difficulty. The patient has a history of COPD and respiratory failure. He was at home today with and family and they were cooking and baking cookies for [employer]. Around 6 PM the patient had difficulty breathing and became somewhat confused. He has had this occur in the past when his oxygen goes low. He is oxygen dependent, often wearing 2 L nasal cannula. became concerned as this continues to go well, and she increased his home oxygen. On arrival to the ER the patient is symptomatic and is requiring 6 L nasal cannula to maintain oxygen above 90%. Patient does not report any fevers or chills. He rates his discomfort a 5/10. Home Medications Medication Instructions Recorded Confirmed Type cyclobenzaprine 10 mg tablet 10 mg PO HS 02/28/19 04/09/23 History omeprazole 20 mg capsule,delayed 20 mg PO HS 02/28/19 04/09/23 History release ondansetron 4 mg disintegrating 4 mg PO Q8H PRN Nausea And Vomiting 04/10/19 04/09/23 History tablet dicyclomine 10 mg capsule 10 mg PO BID PRN ABD PAIN 02/12/20 04/09/23 History aspirin 81 mg tablet,delayed 81 mg PO HS 02/22/22 04/09/23 History release (Alice Low Dose Aspirin) pramipexole 0.5 mg tablet 0.5 mg PO HS #20 tabs 07/24/22 04/09/23 Rx mecobalamin (vitamin B12) 1,000 1,000 mcg PO HS 07/26/22 04/09/23 History mcg chewable tablet pravastatin 40 mg tablet 20 mg PO HS 12/04/22 04/09/23 History sildenafil 100 mg tablet 100 mg PO DAILY PRN sexual activity 12/04/22 04/09/23 History testosterone (AndroGel) 2 pump topical HS #75 grams 12/07/22 04/09/23 Rx fluticasone propionate 50 1 spray intranasal BID PRN 12/28/22 04/09/23 History mcg/actuation nasal Congestion spray,suspension (Flonase Allergy Relief) metoprolol succinate 25 mg 25 mg PO HS 12/28/22 04/09/23 History tablet,extended release 24 hr cholecalciferol (vitamin D3) 25 1,000 unit PO HS 01/19/23 04/09/23 History mcg (1,000 unit) capsule alfuzosin 10 mg tablet,extended 10 mg PO DAILY #30 tabs 02/13/23 04/09/23 Rx release 24 hr fentanyl 100 mcg/hr transdermal 1 patch topical .Q48HRS 04/09/23 04/09/23 History patch Allergies Allergy/AdvReac Type Severity Reaction Status Date / Time bee venom protein (honey bee) Allergy Severe EXCESSIVE Verified 04/09/23 02:01 SWELLING AT SITE sulfamethoxazole Allergy Severe TONGUE Verified 04/09/23 02:01 SWELLS, WHITE BLISTERS IN MOUTH. trimethoprim Allergy Severe TONGUE Verified 04/09/23 02:01 SWELLS, WHITE BLISTERS IN MOUTH. adhesive Allergy Intermediate SKIN Verified 04/09/23 02:01 IRRITATION morphine AdvReac Intermediate PROJECTILE Verified 04/09/23 02:01 VOMITING Past Med/Surg History Medical History COVID-19 Sepsis BPH with obstruction/lower urinary tract symptoms Dysuria Iron deficiency Acute opioid withdrawal Accidental overdose Pituitary dysfunction Diaphragmatic disorder Restrictive lung disease SVT (supraventricular tachycardia) Pneumonia RLS (restless legs syndrome) Severe obstructive sleep apnea History of acute renal failure BPH (benign prostatic hyperplasia) Prostatitis Recurrent pneumonia Non-ST elevation [place] (NSTEMI) Depression GERD (gastroesophageal reflux disease) Chronic back pain Hypertension Surgical History History of mandibular surgery History of carpal tunnel release History of surgery mass removed from left side of clavicle History of ankle surgery Britton reconstruction-right side Status post trigger finger release Family History Mother Cancer Hypertension Myasthenia gravis Breast cancer Son Environmental allergies Asthma Sister Gallbladder disease Father Alzheimer disease Grandmother (Maternal) Colorectal cancer Family/Other Myocardial infarction Other No family history of bleeding disorder Denies family history of Ovarian cancer Prostate cancer Social History Smoking Status: Former smoker Tobacco Type: Cigarettes Second Hand Exposure: No; Do You Dip or Chew Tobacco: No; Hx Alcohol Use: No Hx Substance Use: No Preferred Language: [place] Citizen Communication Ability: Effective 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: No Beliefs That Will Affect Care: None marital status: Current Living Situation: Spouse current occupational status: retired Feels Safe at Home: Yes Safety Concerns: Feels Safe At This Time Childhood Exposure to Second-Hand Smoke: Yes Dental Care, Regularly: No Physical Activity Frequency: Does not Exercise Seatbelt Use: never Sunscreen Use: Yes Assistive Devices: BiPap, Cane, Denture - Upper and Glasses Review of Systems A total of 10 systems reviewed and were otherwise negative Physical Exam Vital Signs Vital Signs - 24 hr 04/08/23 23:52 04/09/23 00:07 04/09/23 00:07 Temperature 37.1 C Temperature Source Temporal Artery Scan Pulse Rate 73 Respiratory Rate 28 H Respiratory Effort / Characteristics Labored Blood Pressure 114/65 Blood Pressure Mean 81 Pulse Oximetry 98 98 Oxygen Delivery Method Nasal Cannula Nasal Cannula Oxygen Flow Rate 3 3 Sepsis New/Unexplained Change in Mental Status N/A Sepsis Action Taken by Nursing No Action Required 04/09/23 00:17 04/09/23 00:30 04/09/23 01:00 Temperature Temperature Source Pulse Rate 59 L 60 60 Respiratory Rate 15 16 Respiratory Effort / Characteristics Blood Pressure Blood Pressure Mean Pulse Oximetry 100 97 Oxygen Delivery Method Nasal Cannula Nasal Cannula Oxygen Flow Rate 3 3 Sepsis New/Unexplained Change in Mental Status Sepsis Action Taken by Nursing 04/09/23 01:11 04/09/23 01:15 04/09/23 01:31 Temperature Temperature Source Pulse Rate 59 L 59 L 61 Respiratory Rate 14 15 16 Respiratory Effort / Characteristics Blood Pressure 123/61 111/72 90/52 L Blood Pressure Mean 81 85 64 Pulse Oximetry 98 98 97 Oxygen Delivery Method Nasal Cannula Nasal Cannula Nasal Cannula Oxygen Flow Rate 3 3 3 Sepsis New/Unexplained Change in Mental Status Sepsis Action Taken by Nursing 04/09/23 01:46 04/09/23 02:00 04/09/23 02:15 Temperature Temperature Source Pulse Rate 61 59 L 61 Respiratory Rate 15 16 19 Respiratory Effort / Characteristics Blood Pressure 100/57 L 104/64 90/54 L Blood Pressure Mean 71 77 66 Pulse Oximetry 96 98 96 Oxygen Delivery Method Nasal Cannula Nasal Cannula Nasal Cannula Oxygen Flow Rate 3 3 3 Sepsis New/Unexplained Change in Mental Status Sepsis Action Taken by Nursing 04/09/23 02:30 04/09/23 02:39 04/09/23 02:45 Temperature 37.2 C Temperature Source Oral Pulse Rate 60 63 Respiratory Rate 15 16 Respiratory Effort / Characteristics Blood Pressure 110/64 Blood Pressure Mean 79 Pulse Oximetry 99 98 Oxygen Delivery Method Nasal Cannula Nasal Cannula Oxygen Flow Rate 3 3 Sepsis New/Unexplained Change in Mental Status Sepsis Action Taken by Nursing 04/09/23 03:00 Temperature Temperature Source Pulse Rate 64 Respiratory Rate 18 Respiratory Effort / Characteristics Blood Pressure 110/66 Blood Pressure Mean 80 Pulse Oximetry 96 Oxygen Delivery Method Nasal Cannula Oxygen Flow Rate 3 Sepsis New/Unexplained Change in Mental Status Sepsis Action Taken by Nursing VITALS: Vitals are noted on the nurse's note and reviewed by myself. Vital signs stable. GENERAL: Elderly white male who appears ill but not toxic. HEAD: Normocephalic atraumatic. NECK: Supple without nuchal rigidity. No lymphadenopathy. No thyromegaly. Cervical spine is nontender. HEART: Regular rate and rhythm without murmurs gallops or rubs. LUNGS: Distant breath sounds bilaterally with scattered rhonchi ABDOMEN: Positive normal bowel sounds x 4. Soft, nontender, without masses or organomegaly. No guarding or rebound tenderness. MUSCULOSKELETAL: No muscle atrophy, erythema, or edema noted. Full range of motion in all extremities. Course Administered Medications Ceftriaxone Sodium 2,000 mg/ (Dextrose) 50 mls @ 100 mls/hr IV Q24H [facility]; Protocol Stop: 04/16/23 03:44 Last Infusion: 04/09/23 05:34 Dose: Infused Documented By: Admin: 04/09/23 04:39 Dose: 100 mls/hr Documented By: TACHO Azithromycin 500 mg/ Dextrose 255 mls @ 125 mls/hr IV Q24H [facility] Stop: 04/16/23 03:59 Last Admin: 04/09/23 05:31 Dose: 125 mls/hr Documented By: TACHO Sodium Chloride (Nss) 1,000 mls @ 80 mls/hr IV .[id number] STA Stop: 04/09/23 16:05 Last Admin: 04/09/23 04:14 Dose: 80 mls/hr Documented By: TACHO Miscellaneous (Check Fentanyl Patch Placement) 1 each N/A QS [facility] Stop: 05/09/23 03:44 Last Admin: 04/09/23 04:39 Dose: 1 each Documented By: TACHO Discontinued Medications Dexamethasone Sodium Phosphate (DexamethasonePf 10 Mg/Ml Vial) 10 mg IV NOW ONE Stop: 04/09/23 02:29 Last Admin: 04/09/23 02:52 Dose: 10 mg Documented By: TACHO Remdesivir 200 mg/ Sodium (Chloride) 250 mls @ 125 mls/hr IV ONE STA; Protocol Stop: 04/09/23 05:00 Last Infusion: 04/09/23 05:42 Dose: Infused Documented By: Admin: 04/09/23 03:32 Dose: 125 mls/hr Documented By: TACHO Sodium Chloride (Nss) 250 mls @ 999 mls/hr IV .Q16M STA Stop: 04/09/23 03:52 Last Infusion: 04/09/23 04:40 Dose: Infused Documented By: Admin: 04/09/23 04:15 Dose: 999 mls/hr Documented By: TACHO Medical Decision Making Differential Diagnosis Differential diagnosis includes, but is not limited to: Myocardial infarction, dysrhythmia, pericarditis, pneumothorax, aortic aneurysm/dissection, DVT/PE, anxiety, GERD, PUD, electrolyte imbalance, thyroid disorder, pneumonia, bronchitis, pancreatitis, and others Laboratory Data 04/09/23 00:40 04/09/23 00:40 Lab Results 04/09/23 04/09/23 Range/Units 00:34 00:40 WBC 7.72 (4.8-10.8) K/ul RBC 5.12 (4.70-6.10) M/uL Hgb 16.1 (14.0-18.0) g/dl Hct 47.4 (42.0-52.0) % MCV 92.6 (80.0-100.0) fL MCH 31.4 (25.0-34.0) pg MCHC 34.0 (32.0-36.0) g/dL RDW Std Deviation 48.1 H (36.4-46.3) fL RDW Coeff of Netta 14.0 (11.5-14.5) % Plt Count 247 (130-400) K/uL MPV 9.2 L (9.4-12.4) fL Immature Gran % (Auto) 0.5 % Neut % (Auto) 73.3 % Lymph % (Auto) 11.1 % [place] % (Auto) 13.9 % Eos % (Auto) 0.6 % Baso % (Auto) 0.6 % Neut # (Auto) 5.65 (1.40-6.50) K/uL Lymph # (Auto) 0.86 L (1.20-3.40) K/uL [place] # (Auto) 1.07 H (0.11-0.59) K/uL Eos # (Auto) 0.05 (0.00-0.50) K/uL Baso # (Auto) 0.05 (0.00-0.20) K/uL Immature Gran # (Auto) 0.04 (0.01-0.20) K/uL PT 11.4 (9.0-12.0) Seconds INR 1.0 (0.9-1.1) APTT 26 (21-31) Seconds PTT Ratio 0.9 VBG pH 7.32 L (7.36-7.41) VBG pCO2 65 H (38-50) mmHg VBG pO2 37 mmHg VBG HCO3 34 mmol/L VBG O2 Saturation < 60.0 % VBG Base Excess 5.3 mEq/L Carboxyhemoglobin 1.2 % THgb Sodium 135 L (136-145) mmol/L Potassium 4.2 (3.5-5.1) mmol/L Chloride 98 (98-107) mmol/L Carbon Dioxide 32 (21-32) mmol/L Anion Gap 5 (3-11) BUN 15 (6-23) mg/dl Creatinine 1.05 (0.6-1.4) mg/dl Est Cr Clr Drug Dosing Not Reportable Est GFR ( Amer) 82.4 ml/min Est GFR (Non-Af Amer) 71.1 ml/min BUN/Creatinine Ratio 14.3 (10-20) Glucose 104 H (70-99(Fasting)) mg/dl Lactate 0.7 (0.4-2.0) mmol/L Calcium 8.9 (8.6-10.3) mg/dl Magnesium 1.7 (1.7-2.4) mg/dl Total Bilirubin 1.3 H (0.2-1.0) mg/dl AST 19 (13-39) U/L ALT 17 (7-52) U/L Alkaline Phosphatase 54 (34-104) U/L Ammonia 21.0 (18-72) umol/L Troponin I High Sens 11.6 (0-20) pg/ml B-Natriuretic Peptide 32 (0-100) pg/ml Total Protein 7.5 (6.0-8.3) gm/dl Albumin 4.3 (3.4-5.0) gm/dl Globulin 3.2 (2.5-4.0) gm/dl Albumin/Globulin Ratio 1.3 (0.9-2) Ethyl Alcohol mg/dL < 10.0 (<10.0) mg/dl Adenovirus (PCR) Not Detected (NotDetected) B. pertussis DNA (PCR) Not Detected (NotDetected) B.parapertussis DNA PCR Not Detected (NotDetected) C. pneumoniae DNA (PCR) Not Detected (NotDetected) Coronavirus OC43 (PCR) Not Detected (NotDetected) Coronavirus HKU1 (PCR) Not Detected (NotDetected) Coronavirus 229E (PCR) Not Detected (NotDetected) SARS-CoV-2 (PCR) DETECTED A* (NotDetected) Coronavirus NL63 (PCR) Not Detected (NotDetected) Human Metapneumovir PCR Not Detected (NotDetected) Influenza Type A (PCR) Not Detected (NotDetected) Influenza Type B (PCR) Not Detected (NotDetected) M. pneumoniae (PCR) Not Detected (NotDetected) Parainfluenza 1 (PCR) Not Detected (NotDetected) Parainfluenza 2 (PCR) Not Detected (NotDetected) Parainfluenza 3 (PCR) Not Detected (NotDetected) Parainfluenza 4 (PCR) Not Detected (NotDetected) RSV (PCR) Not Detected (NotDetected) Entero/Rhino (PCR) Not Detected (NotDetected) ECG Data Attestation: I personally reviewed and interpreted this ECG as follows: Indication: + SOB/dyspnea Additional Comments: Sinus bradycardia @[address] elevation When compared with ECG of 28-DEC-2022 20:50, Vent. rate has decreased BY 37 BPM QT has shortened MDM Narrative Physical exam and history were performed. Nursing notes, EMR, and Medication List were personally reviewed. No social concerns were identified as barriers to patients care. Patient appears to have difficulty breathing bring him to the ER.Patient does appear ill on exam, but states that he feels better with increased nasal cannula oxygen. IV access was established and labs were obtained. Chest x-ray performed. EKG without acute ST elevation. Bio fire and septic workup were begun. Patient's blood work is as above and was reviewed. He does not have a significant elevated white blood cell count, gross anemia, bandemia, or significant electrolyte imbalance. INR is 1.0. Transaminases not diagnostic. Troponin x 1 is negative. BNP is normal. pCO2 on VBG is 65 and he is slightly acidotic at 7.32. Ammonia is negative. Chest x-ray without acute process with official radiology read pending. Bio fire is POSITIVE for COVID-19 which may be contributing to his symptoms. Patient was given Decadron here in the ER. Overall the patient does not appear well for discharge home. He has underlying pulmonary disease that is quite symptomatic from his COVID-19 infection. The case was discussed with the on-call hospitalist team who agreed to evaluate the patient here in the ER. Please see their dictation for further patient course, plan, and disposition. The chart was completed utilizing [employer] Speech Voice Recognition Software. Grammatical errors, random word insertions, pronoun errors, and incomplete sentences are an occasional consequence of this system due to software limitations, ambient noise, and hardware issues. Any formal questions or concerns about the content, text, or information contained within the body of this dictation should be directly addressed to the provider for clarification. . Impression & Plan Acute respiratory failure with hypoxia and hypercarbia, COVID-19 Discharge Plan Visit Data Chief Complaint: Respiratory Problems Stated Complaint: OXYGEN IS DOWN, CO2 POSSIBLY UP ED Provider: Alyssa Pedraza ED Midlevel Provider: Feliz Baker Discharge Problem: Acute respiratory failure with hypoxia and hypercarbia, COVID-19 Patient Disposition: Admitted As Inpatient Discharge Instructions Interventions: ED Discharge Assessment Last Done: 04/09/23 03:37
--- NOTE | 2023-04-09 06:45 | XRay Report ---
XR chest 1V portable CLINICAL HISTORY: Dyspnea. COMPARISON STUDY: Chest CT June 11, 2022. Chest radiograph December 28, 2022. FINDINGS: Elevation the right hemidiaphragm is unchanged. Lungs are clear. There is no pneumothorax o r pleural effusion. Cardiac size is stable. Mediastinal contours are normal. There is no evidence for pulmonary edema. IMPRESSION: No acute cardiopulmonary findings. No significant change in appearance of the chest. ACT 112: Negative or not required by law. Electronically signed by: Teo Paulino M.D. 04/09/2023 6:43 AM
[2023-04-09] MEDS: ALBUT/IPRATROP 3MG/0.5MG NEB 3 ML VIAL NEB SCH ×4 (06:52→20:16)
[2023-04-09] MEDS ORDERED: fentaNYL 100 MCG/HR TDSY TD SCH (09:00)
[2023-04-09] MEDS: TAMSULOSIN HCL 0.4 MG CAP PO SCH (10:03)
[2023-04-09] MEDS: dexAMETHasone 6 MG in SYRINGE 0 ML IV SCH (10:04)
[2023-04-09] MEDS ORDERED: METOPROLOL SUCC 25MG EXT REL TAB PO ONE (14:45)
[2023-04-09] MEDS ORDERED: ONDANSETRON INJ 2 MG/ML 2 ML VIAL IV PRN (18:35)
--- NOTE | 2023-04-09 18:50 | History & Physical Bridge Note ---
Date of Service April 09, 2023 History & Physical Bridge Note I have examined the patient, reviewed the History & Physical and in the interval since the performance of the History & Physical I have noted the following changes of clinical significance: Patient weaned off BiPAP. Feeling less short of breath. No longer confused. Had some nausea later in the day which he says is chronic for him. Troponin reviewed and trended downward. He denies any other issues. He is coughing up some sputum Vitals reviewed Gen: AAOx3, NAD HEENT: Anicteric sclerae, EOMI CV: Mildly tachycardic, regular rhythm no mgr nl S1S2 Pulm: Diminished breath sounds at the right base, otherwise clear Ext: No edema Skin: No rashes, warm/dry Neuro: Full strength throughout 72-year-old male here with COVID with possibly secondary bacterial bronchitis, and with acute on chronic hypoxic and hypercapnic respiratory failure Improving now off BiPAP-continue BiPAP at nighttime Continue supplemental O2 during the day to keep pulse ox greater than 88% Continue dexamethasone, Remdesivir, ceftriaxone and azithromycin
[2023-04-09] MEDS ORDERED: CYANOCOBALAMIN (B-12) 500 MCG TABLET PO SCH (21:00)
[2023-04-09] MEDS ORDERED: CYCLOBENZAPRINE HCL 10 MG TAB PO SCH (21:00)
[2023-04-09] MEDS ORDERED: ASPIRIN 81 MG ECTAB PO SCH (21:00)
[2023-04-09] MEDS ORDERED: PANTOprazole 40 MG TAB PO SCH (21:00)
[2023-04-09] MEDS ORDERED: METOPROLOL SUCC 25MG EXT REL TAB PO SCH (21:00)
[2023-04-09] MEDS ORDERED: PRAMIPEXOLE DIHYDROCHLO 0.5 MG TAB PO SCH (21:00)
[2023-04-09] MEDS ORDERED: PRAVASTATIN SOD 20 MG TAB PO SCH (21:00)
[2023-04-09] MEDS ORDERED: CHOLECALCIFEROL 1,000 UNITS 25 MCG TAB PO SCH (21:00)
[2023-04-10] MEDS: CHECK fentaNYL PATCH PLACEMENT SCH ×2 (00:13→08:22)
[2023-04-10] MEDS: AZITHROMYCIN 500 MG in DEXTROSE 5% 250 ML IV SCH (05:59)
[2023-04-10] MEDS: ALBUT/IPRATROP 3MG/0.5MG NEB 3 ML VIAL NEB SCH ×2 (07:16→11:21)
[2023-04-10] MEDS: cefTRIAXone SODIUM 2,000 MG in DEXTROSE 5 % MINI-B 50 ML IV SCH (08:15)
[2023-04-10] MEDS: dexAMETHasone 6 MG in SYRINGE 0 ML IV SCH (08:22)
[2023-04-10] MEDS: TAMSULOSIN HCL 0.4 MG CAP PO SCH (08:23)
[2023-04-10] MEDS ORDERED: ENOXAPARIN INJ 40 MG/0.4 ML SYR SQ SCH (09:00)
[2023-04-10 11:09] LABS: Albumin Globulin Ratio 1.5 (0.9-2); Albumin Level 3.7 gm/dl (3.4-5.0); BUN Creatinine Ratio 24.2 (10-20); Bilirubin,Total 0.4 mg/dl (0.2-1.0); C Reactive Protein 3.06 mg/dl (0-0.5); Calcium 8.8 mg/dl (8.6-10.3); Creatinine Clr Calc Pharmacy 82.8 ml/min; Est GFR (African American) 97.9 ml/min; Est GFR (Non-African American) 84.5 ml/min; Globulin 2.5 gm/dl (2.5-4.0); Magnesium 1.8 mg/dl (1.7-2.4); Potassium 4.6 mmol/L (3.5-5.1); Total Protein 6.2 gm/dl (6.0-8.3)
[2023-04-10] MEDS ORDERED: REMDESIVIR 100 MG in SODIUM CHLORIDE 0.9% 230 ML IV SCH (12:00)
[2023-04-10] MEDS ORDERED: ALBUT/IPRATROP 3MG/0.5MG NEB 3 ML VIAL NEB PRN (12:18)
--- NOTE | 2023-04-10 12:31 | Discharge Summary ---
Discharge Summary Date of Service April 10, 2023 Notes For Next Care Provider Medication Changes From Visit None Admission HPI Per Admitting Provider This is a pleasant 72-year-old male who is oxygen dependent at home at 2 L at night and as needed during the day with a history of advanced age COPD follows with pulmonary as an outpatient. Over the last few days she has had increasing shortness of breath to the point where he came to the ER for further evaluation and treatment today. He typically wears 2 L of oxygen at home he was in the 80th percentile with his oxygen saturations he had to be titrated to 6 L. In the ER the patient was identified to have acute COVID-19. He was hypotensive at 90/54 pulse 60 respirations initially at 28. We were called to asked admit the patient for further evaluation and treatment. The patient had received increased oxygen therapy in the ER at the time for the request. He recommended stat steroids stat remdesivir stat nebulizers blood cultures have been obtained. Will treat with Rocephin and azithromycin for possible superimposed pneumonia not showing up on checks x-ray but the patient is dehydrated were given a stat 500 cc bolus of saline with fluids as well given the sepsis with hypotension and tachypnea in the setting of acute COVID-19 infection question possible underlying bacterial pneumonia. I did speak with the patient by telephone to interview him prior to going to examine him in his room personally as described below. Principal Dx & Hospital Course #1 = Principal Diagnosis (1) Sepsis: The patient was thought to have impending clinical sepsis on arrival Patient has hypotension in the setting of acute hypercapnic hypoxemic respiratory failure secondary to exacerbation of COPD secondary to acute COVID- 19 infection. 500 cc bolus of normal saline and then maintenance fluids were given and BPs improved Blood cultures have been obtained-remain NGTD No fevers, doing well Secondary to COVID Do not suspect bacterial PNA as CXR negative-no further abx needed-was given ceftriaxone and azithromycin x 2 days (2) Acute respiratory failure with hypoxia and hypercarbia: Patient's oxygen dependent at home at night and as needed during the day. He has acute on chronic hypercapnic hypoxemic respiratory failure with elevated PaCO2 on admission which improved with use of BiPAP. Is now weaned to RA during day and stable for discharge was given 2 doses of IV decadron but PULM did not feel it was necessary to continue this on discharge (3) COVID-19: Acute COVID-19 infection with hypoxemia with acute hypoxemic hypercapnic respiratory failure with history of chronic hypoxemic hypercapnic respiratory failure. IV remdesivir IV Decadron and nebulizers. Sputum cultures. We will cover for possible superimposed bacterial pneumonia with IV Rocephin and IV azithromycin for now -checks x-ray does not reveal any zhen infiltrate but the patient does appear somewhat dry and sometimes a chest x-ray lags behind the clinical presentation. (4) Obstructive sleep apnea: The patient reports he does wear BiPAP at night. (5) BPH with obstruction/lower urinary tract symptoms: continue home meds, no acute issues (6) SVT (supraventricular tachycardia): had some sinus tachycardia here to the 130s at most due to missing a dose of his metoprolol the first evening he was in the ER. Also related would be bronchodilators and steroid use He has a h/o PSVT requiring adenosine back in 05/2022 but none since then continue metoprolol Plan Dispo-dc to home Discharge Exam Constitutional WD/WN, vitals as above Respiratory normal respiratory effort, lungs clear to auscultation Cardiovascular RRR, no murmur, no edema Gastrointestinal (Abdomen) normal bowel sounds, soft, nontender, no hepatosplenomegaly Updated Medication List Medication Instructions Recorded Confirmed Type cyclobenzaprine 10 mg tablet 10 mg PO HS 02/28/19 04/09/23 History omeprazole 20 mg capsule,delayed 20 mg PO HS 02/28/19 04/09/23 History release ondansetron 4 mg disintegrating 4 mg PO Q8H PRN Nausea And Vomiting 04/10/19 04/09/23 History tablet dicyclomine 10 mg capsule 10 mg PO BID PRN ABD PAIN 02/12/20 04/09/23 History aspirin 81 mg tablet,delayed 81 mg PO HS 02/22/22 04/09/23 History release (Alice Low Dose Aspirin) pramipexole 0.5 mg tablet 0.5 mg PO HS #20 tabs 07/24/22 04/09/23 Rx mecobalamin (vitamin B12) 1,000 1,000 mcg PO HS 07/26/22 04/09/23 History mcg chewable tablet pravastatin 40 mg tablet 20 mg PO HS 12/04/22 04/09/23 History sildenafil 100 mg tablet 100 mg PO DAILY PRN sexual activity 12/04/22 04/09/23 History testosterone (AndroGel) 2 pump topical HS #75 grams 12/07/22 04/09/23 Rx fluticasone propionate 50 1 spray intranasal BID PRN 12/28/22 04/09/23 History mcg/actuation nasal Congestion spray,suspension (Flonase Allergy Relief) metoprolol succinate 25 mg 25 mg PO HS 12/28/22 04/09/23 History tablet,extended release 24 hr cholecalciferol (vitamin D3) 25 1,000 unit PO HS 01/19/23 04/09/23 History mcg (1,000 unit) capsule alfuzosin 10 mg tablet,extended 10 mg PO DAILY #30 tabs 02/13/23 04/09/23 Rx release 24 hr fentanyl 100 mcg/hr transdermal 1 patch topical .Q48HRS 04/09/23 04/09/23 History patch Hospital Stay Data Consultations 04/09/23 02:49 ED Decision to Admit Stat 04/09/23 03:36 Consult Pulmonology Routine Pending Results Patient Have Any Pending Studies at Discharge: Yes (Final blood cultures-no growth to date) Discharge Instructions Given to Patient (Per Discharging Provider) You were admitted with lower oxygen levels and confusion due to COVID-19. This resolved with the use of BiPAP and supplemental oxygen. You were initially treated with a steroid and an antiviral medication, but the Beaming Machine Operator recommended stopping these medications on discharge. Your oxygen levels are normal with supplemental oxygen during the daytime, but you should continue your usual BiPAP and oxygen at bedtime. Total Time Total Time Spent Total Time Spent (In Minutes): 35 min Coding Level of Care Code 63839 INP/OBS DISCH >30 MIN Diagnoses Sepsis A41.9 Acute respiratory failure with hypoxia and hypercarbia J96.01; J96.02 COVID-19 U07.1 Obstructive sleep apnea G47.33 BPH with obstruction/lower urinary tract symptoms N40.1; N13.8 SVT (supraventricular tachycardia) I47.1
--- NOTE | 2023-04-10 13:57 | Pulmonary Consultation ---
Date of Consultation April 10, 2023 Assessment & Plan (1) Acute hypercapnic respiratory failure: Patient's respiratory status and mentation have improved substantially this morning. He notes that he is compliant with BiPAP. Recommend titrating down his opiates as these are likely causing hypoventilation leading to recurrent episodes of hypercapnic respiratory failure. 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 (2) Acute confusion: Secondary to acute on chronic hypercapnia which is resolved. (3) COVID-19: Patient notes that he has had symptoms for the past 2 weeks and his symptoms are quite mild. He is not a candidate for remdesivir or dexamethasone at this time. Nor is he a candidate for Paxlovid. Notably, the patient was on supplemental oxygen when I saw him that I was able to wean the oxygen off from 3 L to 0 hide he continues to maintain saturations in the mid 90s. He denies any shortness of breath or cough at present. Plan Discussed with Dr. Villanueva of the hospitalist service. Patient is stable for discharge. Thank you for allowing me to participate in care of the patient. 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 Patient denies any acute respiratory symptoms including shortness of breath, fevers, chills or night sweats. He does endorse some sinus congestion and mild cough with occasional productive sputum over the past 2 weeks. His has had similar symptoms. He notes that his tested positive for COVID yesterday and he tested positive on admission. He is feeling well today. He was found to be mildly hypercapnic on admission compared to his baseline. He notes that he is very compliant with his BiPAP therapy. He follows with Dr. King in the sleep medicine clinic. I reviewed his admitting chest x-ray which did not demonstrate any acute infiltrates. His right hemidiaphragm is indeed elevated. I reviewed the radiology report and agree with the assessment. He notes that he was evaluated by thoracic surgery in [facility] about plication surgery for his diaphragm and told that this was not a good option. Allergies Allergy/AdvReac Type Severity Reaction Status Date / Time bee venom protein (honey bee) Allergy Severe EXCESSIVE Verified 04/09/23 02:01 SWELLING AT SITE sulfamethoxazole Allergy Severe TONGUE Verified 04/09/23 02:01 SWELLS, WHITE BLISTERS IN MOUTH. trimethoprim Allergy Severe TONGUE Verified 04/09/23 02:01 SWELLS, WHITE BLISTERS IN MOUTH. adhesive Allergy Intermediate SKIN Verified 04/09/23 02:01 IRRITATION morphine AdvReac Intermediate PROJECTILE Verified 04/09/23 02:01 VOMITING Home Medications Medication Instructions Recorded Confirmed Type cyclobenzaprine 10 mg tablet 10 mg PO HS 02/28/19 04/09/23 History omeprazole 20 mg capsule,delayed 20 mg PO HS 02/28/19 04/09/23 History release ondansetron 4 mg disintegrating 4 mg PO Q8H PRN Nausea And Vomiting 04/10/19 04/09/23 History tablet dicyclomine 10 mg capsule 10 mg PO BID PRN ABD PAIN 02/12/20 04/09/23 History aspirin 81 mg tablet,delayed 81 mg PO HS 02/22/22 04/09/23 History release (Alice Low Dose Aspirin) pramipexole 0.5 mg tablet 0.5 mg PO HS #20 tabs 07/24/22 04/09/23 Rx mecobalamin (vitamin B12) 1,000 1,000 mcg PO HS 07/26/22 04/09/23 History mcg chewable tablet pravastatin 40 mg tablet 20 mg PO HS 12/04/22 04/09/23 History sildenafil 100 mg tablet 100 mg PO DAILY PRN sexual activity 12/04/22 04/09/23 History testosterone (AndroGel) 2 pump topical HS #75 grams 12/07/22 04/09/23 Rx fluticasone propionate 50 1 spray intranasal BID PRN 12/28/22 04/09/23 History mcg/actuation nasal Congestion spray,suspension (Flonase Allergy Relief) metoprolol succinate 25 mg 25 mg PO HS 12/28/22 04/09/23 History tablet,extended release 24 hr cholecalciferol (vitamin D3) 25 1,000 unit PO HS 01/19/23 04/09/23 History mcg (1,000 unit) capsule alfuzosin 10 mg tablet,extended 10 mg PO DAILY #30 tabs 02/13/23 04/09/23 Rx release 24 hr fentanyl 100 mcg/hr transdermal 1 patch topical .Q48HRS 04/09/23 04/09/23 History patch Patient History Medical History (Updated 04/10/23 @ 14:03 by Salas Echols MD) Acute hypercapnic respiratory failure SVT (supraventricular tachycardia) COVID-19 Sepsis BPH with obstruction/lower urinary tract symptoms Dysuria Iron deficiency Acute opioid withdrawal Accidental overdose Pituitary dysfunction Diaphragmatic disorder Restrictive lung disease Pneumonia RLS (restless legs syndrome) Severe obstructive sleep apnea History of acute renal failure BPH (benign prostatic hyperplasia) Prostatitis Recurrent pneumonia Non-ST elevation UT (NSTEMI) Depression GERD (gastroesophageal reflux disease) Chronic back pain Hypertension Surgical History History of mandibular surgery History of carpal tunnel release History of surgery mass removed from left side of clavicle History of ankle surgery Britton reconstruction-right side Status post trigger finger release Family History Mother Cancer Hypertension Myasthenia gravis Breast cancer Son Environmental allergies Asthma Sister Gallbladder disease Father Alzheimer disease Grandmother (Maternal) Colorectal cancer Family/Other Myocardial infarction Other No family history of bleeding disorder Denies family history of Ovarian cancer Prostate cancer Social History Smoking Status: Former smoker Tobacco Type: Cigarettes Second Hand Exposure: No; Do You Dip or Chew Tobacco: No; Hx Alcohol Use: No Hx Substance Use: No Preferred Language: Georgian Communication Ability: Effective Signal Constructor Required: No Beliefs That Will Affect Care: None marital status: Current Living Situation: Spouse current occupational status: retired Feels Safe at Home: Yes Childhood Exposure to Second-Hand Smoke: Yes Dental Care, Regularly: No Physical Activity Frequency: Does not Exercise Seatbelt Use: never Sunscreen Use: Yes Assistive Devices: BiPap, Cane, Denture - Upper and Glasses Review of Systems Review of Systems: All systems reviewed & are unremarkable except as noted in HPI & below Physical Exam Physical Exam: Constitutional: Patient appears to be of their stated age. Patient is in no apparent distress. Patient is well-developed. Eyes: Pupils are equal round and reactive to light. Conjunctivae are normal. Anicteric sclera. Ears nose, mouth and throat: Mallampati class 2. Normal posterior oropharynx. Uvula is midline. Neck: Trachea is midline. Visual inspection is normal. Respiratory: Clear to auscultation bilaterally. No use of accessory muscles. No significant clubbing noted. Cardiovascular: Regular rate and rhythm. No murmurs. No edema. Gastrointestinal: Normal bowel sounds, soft, nontender and nondistended. No hepatosplenomegaly noted. Musculoskeletal: No cyanosis. Patient is able to move all extremities. Strength is 5 out of 5 in the upper and lower extremities. Skin: No rashes, warm dry and intact. Neurologic: No obvious focal neurological deficits seen. Psychiatric: Alert and oriented x3 with a euthymic affect. Results & Data Results & Data Vital Signs (Past 12 Hours) Vital Signs Temp Pulse Pulse Resp BP BP Pulse Ox 04/10/23 13:01 36.7 C 61 18 93/56 L 129/73 95 04/10/23 11:21 61 18 95 04/10/23 08:27 36.7 C 82 20 93/56 L 96 04/10/23 08:00 04/10/23 07:18 78 18 98 04/10/23 03:50 98 H 14 96 04/10/23 02:12 36.6 C 68 16 129/73 98 O2 Del Method O2 Flow Rate FiO2 04/10/23 13:01 04/10/23 11:21 Nasal Cannula 2 04/10/23 08:27 Nasal Cannula 3 04/10/23 08:00 Nasal Cannula 3 04/10/23 07:18 Nasal Cannula 3 04/10/23 03:50 40 04/10/23 02:12 Nasal Cannula PG Care Time/CCT Total # of Minutes Spent Total Time Spent with Patient: Total time spent is greater than 50% in coordination of care (as documented) at patient's floor/unit and/or counseling patient: Coding Level of Care Code 65769 INT INP/OBS CARE 2/55MIN Diagnoses Acute hypercapnic respiratory failure J96.02 Acute confusion R41.0 COVID-19 U07.1
[2023-04-10] MEDS ORDERED: METOPROLOL SUCC 25MG EXT REL TAB PO SCH (21:00)
--- NOTE | 2023-04-10 22:59 | Electrocardiogram Report ---
Test Reason : Blood Pressure : / mmHG Vent. Rate : 059 BPM Atrial Rate : 059 BPM P-R Int : 188 ms QRS Dur : 096 ms QT Int : 398 ms P-R-T Axes : 045 -07 -03 degrees QTc Int : 394 ms Sinus bradycardia Otherwise normal ECG When compared with ECG of 28-DEC-2022 20:50, Vent. rate has decreased BY 37 BPM QT has shortened Confirmed by Jefferson Ambrocio ([id number]) on 04/10/2023 10:58:42 PM Referred By: REFERRED SELF Confirmed By:Jefferson Ambrocio
== END 2023-04-10 13:47 | disposition home or self-care (01) | DRG 871 ==
LOC: ED 23:47 → SUATTDRO 04-09 03:12 → EDINP 04-09 03:12 → 4W 04-09 03:37

== ENCOUNTER 2023-07-27 12:58 | Inpatient (IN) ==
--- NOTE | 2023-07-27 13:04 | ED Triage Note ---
Date of Service July 27, 2023 Provider in Triage Author: Chris Alfaro History of Present Illness This patient was briefly evaluated while in triage. An abbreviated physical exam was performed. This patient is a 72-year-old Male who presents to the ED for evaluation of an increased heart rate. The patient was in the emergency department 3 days ago with SVT and palpitations. The patient was administered IV medications to slow his heart rate, and did not need cardioversion. Patient is scheduled to see an project specialist at the end of August. Patient reports his pulse ox showed a heart rate of 175 at home. Physical Exam CONSTITUTIONAL: Healthy and well nourished. Patient appears in moderate distress. HEENT: No scleral icterus or conjunctival injection. Mucous membranes are moist. RESPIRATORY: Clear to auscultation bilaterally with no wheezing, crackles, rhonchi or stridor. CARDIOVASCULAR: Tachycardic rhythm with no obvious murmurs, rubs or gallops. INTEGUMENTARY: No rash or other significant dermatologic conditions noted. HEMATOLOGIC: No ecchymosis or petechiae. PSYCHIATRIC: Positive affect. NEUROLOGIC: No focal neurologic deficits noted. Initial orders for labs and / or imaging were placed and patient was placed in the waiting area until a bed is available. Please see further documentation for the full ED course.
[2023-07-27] MEDS: ADENOSINE IV SOLN 3 MG/ML 2 ML VIAL IV ONE (13:25)
[2023-07-27] MEDS: SODIUM CHLORIDE 0.9% 1,000 ML IV STA (13:25)
[2023-07-27] MEDS: METOPROLOL TARTRATE 1 MG/ML VIAL IV STA (13:30)
[2023-07-27] MEDS: ADENOSINE IV SOLN 3 MG/ML 2 ML VIAL IV STA (13:30)
[2023-07-27] MEDS: METOPROLOL TARTRATE 1 MG/ML VIAL IV ONE (13:30)
--- NOTE | 2023-07-27 13:37 | Emergency Department Note ---
Impression & Plan SVT (supraventricular tachycardia), Palpitations, Failure of outpatient treatment ED Provider Note NAME: TIM JAVIER AGE: 72 SEX: M : 1950 ARRIVES VIA: Walk-In INFORMANT: [Patient][family] ED PROVIDER(S): [Kody Long MD] CHIEF COMPLAINT: Palpitations HISTORY OF PRESENT ILLNESS: The patient is a 72-year-old male with a history of SVT. He presents to the ER with about an hour and 20 minutes of a fluttering and feeling that he may be back in SVT. He was walking when he felt the symptoms start. The patient was here 3 days ago for similar complaints. He required chemical cardioversion with adenosine. He is on metoprolol succinate, 25 mg daily. The patient does not have chest pain. He is not short of breath per se. There has been no cough or cold or congestion. Patient does have bouts of SVT that are short-lived from time to time and, typically, does not have to come to the hospital. Today's event was longer lived and his heart rate seemed faster than previous bouts so he presents to the ED. The patient does have an appointment to see EPS at [facility] in [place] on August 21. PMHx/PSHx/Social Hx: See Below PHYSICAL EXAM: GENERAL: Patient is in no acute distress. HEENT: No acute trauma, normocephalic atraumatic, mucous membranes moist, no nasal congestion. NECK: No stridor, no adenopathy, no meningismus, trachea is midline. LUNGS: Clear to auscultation bilaterally, no wheeze, no rhonchi, breath sounds equal. HEART: Tachycardic and regular, no obvious murmur. ABDOMEN: Soft, nontender, no peritonitis. EXTREMITIES: No cyanosis, full range of motion of all the joints without pain or difficulty. NEUROLOGIC: Oriented x 3, no acute motor or sensory deficits, no focal weakness. SKIN: No jaundice, no diaphoresis. DIFFERENTIAL DIAGNOSIS: SVT, A-fib, a flutter, V. tach, electrolyte imbalance, among others. EMERGENCY DEPARTMENT PROCEDURES: Chemical cardioversion: This procedure was performed by me. The patient was given 6 mg of IV adenosine via rapid push followed by a flush of normal saline. No complications with the medication/procedure. The patient did convert from an SVT to a sinus rhythm. MEDICAL DECISION MAKING: There is no leukocytosis or concerning anemia. There is a normal platelet count. No coagulopathy. No renal failure or significant electrolyte abnormality. No concerning liver enzyme elevation. No pancreatitis. The patient appeared to be in a euthyroid state. ECG initially showed an SVT without ischemic change. Repeat ECG after treatment showed a sinus tachycardia. Cardiac enzyme testing x 1 is not consistent with acute cardiac injury. Chest x-ray does not show mediastinal widening, pneumonia or pneumothorax. Patient presented with palpitations. He was found to be in SVT. I did attempt carotid massage, I did attempt a Valsalva maneuver, both were unsuccessful. The patient was given a 1 L saline bolus. He was placed in Trendelenburg. He received IV adenosine followed by a rapid saline flush. This did convert the SVT to a sinus rhythm. The patient did receive a 5 mg dose of IV metoprolol to prevent further bouts of SVT. I did speak with cardiology, the patient does have a low heart rate at baseline. Admission with medication adjustment was felt warranted as there was concern that he could become too bradycardic outpatient. I spoke with the patient and case management, the on-call hospitalist was consulted. Prior/Outside records/notes reviewed: Previous ED visit note from 07/24/23 discussing his presentation, the findings of SVT and the treatment in the ED. ECG per my interpretation: Indication was palpitations. The ECG shows what appears to be an SVT with a rate of 145. There is no ST elevation, no PVCs. The QTc is 447. Repeat ECG per my interpretation: Indication was SVT. The ECG shows a sinus tachycardia with a first-degree AV block. There is an incomplete right bundle branch block. There is no ST elevation, no PVCs. QTc was 433. Compared to the ECG from earlier today, the SVT has resolved. Continuous Cardiac Monitoring per my interpretation: An order was placed for continuous cardiac monitoring. The monitor shows a rate of [] with []. Imaging/x-ray results per my interpretation: Chest x-ray does not show mediastinal widening, pneumonia or pneumothorax. Chronic Medical/Social conditions affecting care: Advanced age. Care/Management discussed with: [facility] cardiology-Dr. Lira. Case management and the on-call hospitalist Level of care consideration(s): After review of the information above and other included data: --I believe the patient requires escalation of care to admission DISPOSITION: Admission Past Med/Surg History Medical History Acute hypercapnic respiratory failure SVT (supraventricular tachycardia) COVID-19 BPH with obstruction/lower urinary tract symptoms Dysuria Iron deficiency Acute opioid withdrawal Accidental overdose Pituitary dysfunction Diaphragmatic disorder Restrictive lung disease Pneumonia RLS (restless legs syndrome) Severe obstructive sleep apnea History of acute renal failure BPH (benign prostatic hyperplasia) Prostatitis Recurrent pneumonia Non-ST elevation CA (NSTEMI) Depression GERD (gastroesophageal reflux disease) Chronic back pain Hypertension Surgical History History of mandibular surgery History of carpal tunnel release History of surgery mass removed from left side of clavicle History of ankle surgery Britton reconstruction-right side Status post trigger finger release Family History Mother Cancer Hypertension Myasthenia gravis Breast cancer Son Environmental allergies Asthma Sister Gallbladder disease Father Alzheimer disease Grandmother (Maternal) Colorectal cancer Family/Other Myocardial infarction Other No family history of bleeding disorder Denies family history of Ovarian cancer Prostate cancer Social History Smoking Status: Former smoker Tobacco Type: Cigarettes Second Hand Exposure: No; Do You Dip or Chew Tobacco: No; Hx Alcohol Use: No Hx Substance Use: No Preferred Language: Kittitian Communication Ability: Effective Automatic Log Cut Off Sawyer Required: No Beliefs That Will Affect Care: None marital status: Current Living Situation: Spouse current occupational status: retired Feels Safe at Home: Yes Childhood Exposure to Second-Hand Smoke: Yes Dental Care, Regularly: No Physical Activity Frequency: Does not Exercise Seatbelt Use: never Sunscreen Use: Yes Assistive Devices: Cane, CPAP and Oxygen - at Night Allergies Allergies Allergy/AdvReac Type Severity Reaction Status Date / Time bee venom protein (honey bee) Allergy Severe EXCESSIVE Verified 07/12/23 10:56 SWELLING AT SITE sulfamethoxazole Allergy Severe TONGUE Verified 07/12/23 10:56 SWELLS, WHITE BLISTERS IN MOUTH. trimethoprim Allergy Severe TONGUE Verified 07/12/23 10:56 SWELLS, WHITE BLISTERS IN MOUTH. adhesive Allergy Intermediate SKIN Verified 07/12/23 10:56 IRRITATION morphine AdvReac Intermediate PROJECTILE Verified 07/12/23 10:56 VOMITING Home Meds Home Medications Medication Instructions Recorded Confirmed cyclobenzaprine 10 mg tablet 10 mg PO HS 02/28/19 07/12/23 omeprazole 20 mg capsule,delayed 20 mg PO HS 02/28/19 07/12/23 release ondansetron 4 mg disintegrating 4 mg PO Q8H PRN Nausea And Vomiting 04/10/19 07/12/23 tablet dicyclomine 10 mg capsule 10 mg PO BID PRN ABD PAIN 02/12/20 07/12/23 aspirin 81 mg tablet,delayed 81 mg PO HS 02/22/22 07/12/23 release (Alice Low Dose Aspirin) mecobalamin (vitamin B12) 1,000 1,000 mcg PO HS 07/26/22 07/12/23 mcg chewable tablet pravastatin 40 mg tablet 20 mg PO HS 12/04/22 07/12/23 sildenafil 100 mg tablet 100 mg PO DAILY PRN sexual activity 12/04/22 07/12/23 fluticasone propionate 50 1 spray intranasal BID PRN 12/28/22 07/12/23 mcg/actuation nasal Congestion spray,suspension (Flonase Allergy Relief) metoprolol succinate 25 mg 25 mg PO HS 12/28/22 07/12/23 tablet,extended release 24 hr cholecalciferol (vitamin D3) 25 1,000 unit PO HS 01/19/23 07/12/23 mcg (1,000 unit) capsule fentanyl 100 mcg/hr transdermal 1 patch topical .Q48HRS 04/09/23 07/12/23 patch Previous Rx's Medication Instructions Recorded pramipexole 0.5 mg tablet 0.5 mg PO HS #20 tabs 07/24/22 testosterone (AndroGel) 2 pump topical HS #75 grams 12/07/22 ciprofloxacin HCl 500 mg tablet 500 mg PO BID Prostatitis #14 tabs 05/11/23 alfuzosin 10 mg tablet,extended 10 mg PO DAILY #30 tabs 06/21/23 release 24 hr glycopyrrolate 1 mg tablet 1 mg PO DAILY #30 tabs 07/12/23 Results & Data (ED) Vital Signs Vital Signs - 24 hr 07/27/23 13:00 07/27/23 13:15 07/27/23 13:18 Temperature 37.0 C Temperature Source Temporal Artery Scan Pulse Rate 156 H 145 H Pulse Rate [Carotid] 147 H Pulse Rate from SpO2 Sensor Pulse Rhythm Pulse Rhythm [Carotid] Regular Pulse Strength [Carotid] Normal Respiratory Rate 15 21 18 Respiratory Effort / Characteristics Non-Labored Spontaneous Non-Labored Spontaneous Respiratory Depth Normal Normal Respiratory Pattern Regular Blood Pressure 126/84 Blood Pressure [Right Arm] 126/101 H Blood Pressure Mean 98 Blood Pressure Mean [Right Arm] 109 Blood Pressure Position [Right Arm] Pulse Oximetry 96 96 Oxygen Delivery Method Room Air Room Air Sepsis Recent Fever Within 48 Hours No Sepsis New/Unexplained Change in Mental Status No Sepsis Action Taken by Nursing No Action Required 07/27/23 13:19 07/27/23 13:19 07/27/23 13:20 Temperature Temperature Source Pulse Rate 144 H 146 H Pulse Rate [Carotid] Pulse Rate from SpO2 Sensor 143 H 146 H Pulse Rhythm Pulse Rhythm [Carotid] Pulse Strength [Carotid] Respiratory Rate 16 18 Respiratory Effort / Characteristics Respiratory Depth Respiratory Pattern Blood Pressure 138/96 Blood Pressure [Right Arm] Blood Pressure Mean 101 Blood Pressure Mean [Right Arm] Blood Pressure Position [Right Arm] Pulse Oximetry 96 96 Oxygen Delivery Method Sepsis Recent Fever Within 48 Hours Sepsis New/Unexplained Change in Mental Status Sepsis Action Taken by Nursing 07/27/23 13:21 07/27/23 13:23 07/27/23 13:27 Temperature Temperature Source Pulse Rate 147 H 143 H 105 H Pulse Rate [Carotid] Pulse Rate from SpO2 Sensor Pulse Rhythm Regular Pulse Rhythm [Carotid] Pulse Strength [Carotid] Respiratory Rate 22 Respiratory Effort / Characteristics Respiratory Depth Respiratory Pattern Blood Pressure 138/96 Blood Pressure [Right Arm] Blood Pressure Mean 110 Blood Pressure Mean [Right Arm] Blood Pressure Position [Right Arm] Pulse Oximetry 94 Oxygen Delivery Method Room Air Sepsis Recent Fever Within 48 Hours Sepsis New/Unexplained Change in Mental Status Sepsis Action Taken by Nursing 07/27/23 13:27 07/27/23 13:27 07/27/23 13:30 Temperature Temperature Source Pulse Rate 104 H 96 H Pulse Rate [Carotid] Pulse Rate from SpO2 Sensor Pulse Rhythm Pulse Rhythm [Carotid] Pulse Strength [Carotid] Respiratory Rate 21 Respiratory Effort / Characteristics Respiratory Depth Respiratory Pattern Blood Pressure 149/94 H 129/87 Blood Pressure [Right Arm] Blood Pressure Mean 107 Blood Pressure Mean [Right Arm] Blood Pressure Position [Right Arm] Pulse Oximetry Oxygen Delivery Method Sepsis Recent Fever Within 48 Hours Sepsis New/Unexplained Change in Mental Status Sepsis Action Taken by Nursing 07/27/23 13:30 07/27/23 13:30 07/27/23 13:30 Temperature Temperature Source Pulse Rate 97 H 96 H Pulse Rate [Carotid] Pulse Rate from SpO2 Sensor 96 H Pulse Rhythm Pulse Rhythm [Carotid] Pulse Strength [Carotid] Respiratory Rate 16 Respiratory Effort / Characteristics Respiratory Depth Respiratory Pattern Blood Pressure 129/87 Blood Pressure [Right Arm] Blood Pressure Mean 102 Blood Pressure Mean [Right Arm] Blood Pressure Position [Right Arm] Pulse Oximetry 96 Oxygen Delivery Method Sepsis Recent Fever Within 48 Hours Sepsis New/Unexplained Change in Mental Status Sepsis Action Taken by Nursing 07/27/23 13:33 07/27/23 13:33 07/27/23 13:48 Temperature Temperature Source Pulse Rate 89 Pulse Rate [Carotid] Pulse Rate from SpO2 Sensor 88 67 Pulse Rhythm Pulse Rhythm [Carotid] Pulse Strength [Carotid] Respiratory Rate 17 Respiratory Effort / Characteristics Respiratory Depth Respiratory Pattern Blood Pressure 134/86 Blood Pressure [Right Arm] Blood Pressure Mean 105 Blood Pressure Mean [Right Arm] Blood Pressure Position [Right Arm] Pulse Oximetry 93 96 Oxygen Delivery Method Sepsis Recent Fever Within 48 Hours Sepsis New/Unexplained Change in Mental Status Sepsis Action Taken by Nursing 07/27/23 13:49 07/27/23 13:49 07/27/23 13:50 Temperature Temperature Source Pulse Rate 84 80 Pulse Rate [Carotid] Pulse Rate from SpO2 Sensor 81 78 Pulse Rhythm Pulse Rhythm [Carotid] Pulse Strength [Carotid] Respiratory Rate 17 27 H Respiratory Effort / Characteristics Respiratory Depth Respiratory Pattern Blood Pressure 142/87 H Blood Pressure [Right Arm] Blood Pressure Mean 107 Blood Pressure Mean [Right Arm] Blood Pressure Position [Right Arm] Pulse Oximetry 96 95 Oxygen Delivery Method Sepsis Recent Fever Within 48 Hours Sepsis New/Unexplained Change in Mental Status Sepsis Action Taken by Nursing 07/27/23 14:00 07/27/23 14:00 07/27/23 14:05 Temperature Temperature Source Pulse Rate 64 62 Pulse Rate [Carotid] Pulse Rate from SpO2 Sensor 65 Pulse Rhythm Pulse Rhythm [Carotid] Pulse Strength [Carotid] Respiratory Rate 21 Respiratory Effort / Characteristics Respiratory Depth Respiratory Pattern Blood Pressure 140/98 124/72 Blood Pressure [Right Arm] Blood Pressure Mean 104 Blood Pressure Mean [Right Arm] Blood Pressure Position [Right Arm] Pulse Oximetry 97 Oxygen Delivery Method Sepsis Recent Fever Within 48 Hours Sepsis New/Unexplained Change in Mental Status Sepsis Action Taken by Nursing 07/27/23 14:10 07/27/23 14:16 07/27/23 14:16 Temperature Temperature Source Pulse Rate 63 65 Pulse Rate [Carotid] Pulse Rate from SpO2 Sensor 65 66 Pulse Rhythm Pulse Rhythm [Carotid] Pulse Strength [Carotid] Respiratory Rate 16 18 Respiratory Effort / Characteristics Respiratory Depth Respiratory Pattern Blood Pressure 130/102 H Blood Pressure [Right Arm] Blood Pressure Mean 107 Blood Pressure Mean [Right Arm] Blood Pressure Position [Right Arm] Pulse Oximetry 96 93 Oxygen Delivery Method Sepsis Recent Fever Within 48 Hours Sepsis New/Unexplained Change in Mental Status Sepsis Action Taken by Nursing 07/27/23 14:20 07/27/23 14:30 07/27/23 14:30 Temperature Temperature Source Pulse Rate 63 66 Pulse Rate [Carotid] Pulse Rate from SpO2 Sensor 64 66 Pulse Rhythm Pulse Rhythm [Carotid] Pulse Strength [Carotid] Respiratory Rate 20 17 Respiratory Effort / Characteristics Respiratory Depth Respiratory Pattern Blood Pressure 138/99 Blood Pressure [Right Arm] Blood Pressure Mean 111 Blood Pressure Mean [Right Arm] Blood Pressure Position [Right Arm] Pulse Oximetry 97 95 Oxygen Delivery Method Sepsis Recent Fever Within 48 Hours Sepsis New/Unexplained Change in Mental Status Sepsis Action Taken by Nursing 07/27/23 14:40 07/27/23 14:45 07/27/23 14:45 Temperature Temperature Source Pulse Rate 66 71 Pulse Rate [Carotid] Pulse Rate from SpO2 Sensor 71 71 Pulse Rhythm Pulse Rhythm [Carotid] Pulse Strength [Carotid] Respiratory Rate 15 19 Respiratory Effort / Characteristics Respiratory Depth Respiratory Pattern Blood Pressure 163/112 H Blood Pressure [Right Arm] Blood Pressure Mean 130 Blood Pressure Mean [Right Arm] Blood Pressure Position [Right Arm] Pulse Oximetry 96 95 Oxygen Delivery Method Sepsis Recent Fever Within 48 Hours Sepsis New/Unexplained Change in Mental Status Sepsis Action Taken by Nursing 07/27/23 14:50 07/27/23 15:00 07/27/23 15:00 Temperature Temperature Source Pulse Rate 88 62 Pulse Rate [Carotid] 76 Pulse Rate from SpO2 Sensor 61 Pulse Rhythm Pulse Rhythm [Carotid] Pulse Strength [Carotid] Normal Respiratory Rate 20 20 21 Respiratory Effort / Characteristics Non-Labored Spontaneous Respiratory Depth Normal Respiratory Pattern Blood Pressure Blood Pressure [Right Arm] 130/84 Blood Pressure Mean Blood Pressure Mean [Right Arm] 99 Blood Pressure Position [Right Arm] Lying Pulse Oximetry 96 95 Oxygen Delivery Method Room Air Sepsis Recent Fever Within 48 Hours Sepsis New/Unexplained Change in Mental Status Sepsis Action Taken by Nursing 07/27/23 15:00 07/27/23 15:10 07/27/23 15:15 Temperature Temperature Source Pulse Rate 83 62 Pulse Rate [Carotid] Pulse Rate from SpO2 Sensor 70 61 Pulse Rhythm Pulse Rhythm [Carotid] Pulse Strength [Carotid] Respiratory Rate 27 H 20 Respiratory Effort / Characteristics Respiratory Depth Respiratory Pattern Blood Pressure 130/84 Blood Pressure [Right Arm] Blood Pressure Mean 97 Blood Pressure Mean [Right Arm] Blood Pressure Position [Right Arm] Pulse Oximetry 94 95 Oxygen Delivery Method Sepsis Recent Fever Within 48 Hours Sepsis New/Unexplained Change in Mental Status Sepsis Action Taken by Nursing 07/27/23 15:15 07/27/23 15:20 07/27/23 15:30 Temperature Temperature Source Pulse Rate 66 60 Pulse Rate [Carotid] Pulse Rate from SpO2 Sensor 67 63 Pulse Rhythm Pulse Rhythm [Carotid] Pulse Strength [Carotid] Respiratory Rate 20 19 Respiratory Effort / Characteristics Respiratory Depth Respiratory Pattern Blood Pressure 145/96 H Blood Pressure [Right Arm] Blood Pressure Mean 106 Blood Pressure Mean [Right Arm] Blood Pressure Position [Right Arm] Pulse Oximetry 96 97 Oxygen Delivery Method Sepsis Recent Fever Within 48 Hours Sepsis New/Unexplained Change in Mental Status Sepsis Action Taken by Nursing 07/27/23 15:31 07/27/23 15:31 07/27/23 15:40 Temperature Temperature Source Pulse Rate 61 63 Pulse Rate [Carotid] Pulse Rate from SpO2 Sensor 58 L 63 Pulse Rhythm Pulse Rhythm [Carotid] Pulse Strength [Carotid] Respiratory Rate 16 16 Respiratory Effort / Characteristics Respiratory Depth Respiratory Pattern Blood Pressure 149/91 H Blood Pressure [Right Arm] Blood Pressure Mean 104 Blood Pressure Mean [Right Arm] Blood Pressure Position [Right Arm] Pulse Oximetry 96 96 Oxygen Delivery Method Sepsis Recent Fever Within 48 Hours Sepsis New/Unexplained Change in Mental Status Sepsis Action Taken by Nursing 07/27/23 15:45 07/27/23 15:45 07/27/23 15:50 Temperature Temperature Source Pulse Rate 62 63 Pulse Rate [Carotid] Pulse Rate from SpO2 Sensor 61 62 Pulse Rhythm Pulse Rhythm [Carotid] Pulse Strength [Carotid] Respiratory Rate 16 15 Respiratory Effort / Characteristics Respiratory Depth Respiratory Pattern Blood Pressure 141/94 H Blood Pressure [Right Arm] Blood Pressure Mean 108 Blood Pressure Mean [Right Arm] Blood Pressure Position [Right Arm] Pulse Oximetry 94 97 Oxygen Delivery Method Sepsis Recent Fever Within 48 Hours Sepsis New/Unexplained Change in Mental Status Sepsis Action Taken by Nursing 07/27/23 16:00 Temperature Temperature Source Pulse Rate 62 Pulse Rate [Carotid] Pulse Rate from SpO2 Sensor 61 Pulse Rhythm Pulse Rhythm [Carotid] Pulse Strength [Carotid] Respiratory Rate 15 Respiratory Effort / Characteristics Respiratory Depth Respiratory Pattern Blood Pressure Blood Pressure [Right Arm] Blood Pressure Mean Blood Pressure Mean [Right Arm] Blood Pressure Position [Right Arm] Pulse Oximetry 96 Oxygen Delivery Method Sepsis Recent Fever Within 48 Hours Sepsis New/Unexplained Change in Mental Status Sepsis Action Taken by Custodial Medications Current Medication List: was personally reviewed by me Laboratory Data Attestation: I reviewed the patient's lab results. 07/27/23 13:35 07/27/23 13:35 Lab Results 07/27/23 Range/Units 13:35 WBC 7.01 (4.8-10.8) K/ul RBC 5.68 (4.70-6.10) M/uL Hgb 17.7 (14.0-18.0) g/dl Hct 51.7 (42.0-52.0) % MCV 91.0 (80.0-100.0) fL MCH 31.2 (25.0-34.0) pg MCHC 34.2 (32.0-36.0) g/dL RDW Std Deviation 43.9 (36.4-46.3) fL RDW Coeff of Netta 13.1 (11.5-14.5) % Plt Count 230 (130-400) K/uL MPV 10.1 (9.4-12.4) fL Immature Gran % (Auto) 0.7 % Neut % (Auto) 59.2 % Lymph % (Auto) 23.8 % Carson % (Auto) 12.6 % Eos % (Auto) 3.0 % Baso % (Auto) 0.7 % Neut # (Auto) 4.15 (1.40-6.50) K/uL Lymph # (Auto) 1.67 (1.20-3.40) K/uL Carson # (Auto) 0.88 H (0.11-0.59) K/uL Eos # (Auto) 0.21 (0.00-0.50) K/uL Baso # (Auto) 0.05 (0.00-0.20) K/uL Immature Gran # (Auto) 0.05 (0.01-0.20) K/uL PT 10.7 (9.0-12.0) Seconds INR 1.0 (0.9-1.1) APTT 24 (21-31) Seconds PTT Ratio 0.9 Sodium 140 (136-145) mmol/L Potassium 3.9 (3.5-5.1) mmol/L Chloride 101 (98-107) mmol/L Carbon Dioxide 33 H (21-32) mmol/L Anion Gap 6 (3-11) BUN 19 (6-23) mg/dl Creatinine 0.99 (0.6-1.4) mg/dl Est Cr Clr Drug Dosing 75.9 ml/min Est GFR ( Amer) 88.4 ml/min Est GFR (Non-Af Amer) 76.3 ml/min BUN/Creatinine Ratio 19.2 (10-20) Glucose 95 (70-99(Fasting)) mg/dl Calcium 10.1 (8.6-10.3) mg/dl Magnesium 1.8 (1.7-2.4) mg/dl Total Bilirubin 1.4 H (0.2-1.0) mg/dl AST 20 (13-39) U/L ALT 18 (7-52) U/L Alkaline Phosphatase 54 (34-104) U/L Troponin I High Sens 12.5 (0-20) pg/ml Total Protein 8.0 (6.0-8.3) gm/dl Albumin 4.6 (3.4-5.0) gm/dl Globulin 3.4 (2.5-4.0) gm/dl Albumin/Globulin Ratio 1.4 (0.9-2) Lipase 24 (11-82) U/L TSH 1.631 (0.300-4.500) uIu/ml Administered Medications Magnesium Sulfate/Dextrose (Magnesium Sulfate / D5w) 1 gm in 100 mls @ 50 mls/hr IV ONE ONE Stop: 07/27/23 16:53 Last Admin: 07/27/23 15:00 Dose: 50 mls/hr Documented By: [facility] Discontinued Medications Adenosine (Adenosine Iv Soln 3 Mg/Ml 2 Ml Vial) Confirm Administered Dose 6 mg IV .STK-MED ONE Stop: 07/27/23 13:25 Last Admin: 07/27/23 13:25 Dose: 6 mg Documented By: MARLA Adenosine (Adenosine Iv Soln 3 Mg/Ml 2 Ml Vial) 6 mg IV NOW STA Stop: 07/27/23 13:29 Last Admin: 07/27/23 13:30 Dose: Not Given Documented By: MARLA Sodium Chloride (Nss) 1,000 mls @ 999 mls/hr IV .Q1H1M STA Stop: 07/27/23 14:04 Last Infusion: 07/27/23 14:18 Dose: Infused Documented By: Admin: 07/27/23 13:25 Dose: 999 mls/hr Documented By: MARLA Sodium Chloride (Nss) 500 mls @ 999 mls/hr IV .Q31M ONE Stop: 07/27/23 13:48 Last Admin: 07/27/23 14:18 Dose: Not Given Documented By: MARLA Metoprolol Tartrate (Metoprolol Tartrate 1 Mg/Ml Vial) Confirm Administered Dose 5 mg IV .STK-MED ONE Stop: 07/27/23 13:29 Last Admin: 07/27/23 13:30 Dose: Not Given Documented By: MARLA Metoprolol Tartrate (Metoprolol Tartrate 1 Mg/Ml Vial) 5 mg IV NOW STA Stop: 07/27/23 13:29 Last Admin: 07/27/23 13:30 Dose: 5 mg Documented By: MARLA Potassium Chloride (Potassium Chloride Crtab 20 Meq Tabcr) 20 meq PO NOW ONE Stop: 07/27/23 14:57 Last Admin: 07/27/23 15:00 Dose: 20 meq Documented By: MARLA Imaging Data Radiologist's Impression: Chest X-Ray 07/27/23 13:05 XR chest 1V portable CLINICAL HISTORY: Chest pain, nonspecific COMPARISON STUDY: Chest CT June 11, 2022. Chest radiograph July 24, 2023. FINDINGS: Elevation the right hemidiaphragm is unchanged. No pneumothorax or pleural effusion is present. There is no consolidation to suggest pneumonia. Cardiomediastinal silhouette is stable. Interstitial prominence is unchanged. There is no evidence for overt pulmonary edema. IMPRESSION: No acute cardiopulmonary findings. No significant change in appearance of the chest. ACT 112: Negative or not required by law. Electronically signed by: Teo Paulino M.D. 07/27/2023 2:18 PM Discharge Plan Visit Data Chief Complaint: Cardiac Assessment Stated Complaint: LOW BLOOD PRESSURE ED Provider: Kody Long Discharge Problem: SVT (supraventricular tachycardia), Palpitations, Failure of outpatient treatment Patient Disposition: Admitted As Inpatient Condition: Fair Forms Stand Alone Forms: My [facility] Prescriptions Prescriptions: No Action testosterone [AndroGel] 20.25 mg/1.25 gram (1.62 %) gel in metered-dose pump 2 pump topical HS Qty: 75 5RF Rx Instructions: apply 1 pump amount over max area of each upper arm and shoulder 11/27/22 PDMP queried, ok to fill - TR ciprofloxacin HCl 500 mg tablet 500 mg PO BID MDD 1000mg Qty: 14 0RF alfuzosin 10 mg tablet extended release 24 hr 10 mg PO DAILY Qty: 30 5RF Rx Instructions: administer after the same meal each day cyclobenzaprine 10 mg tablet 10 mg PO HS ondansetron 4 mg tablet,disintegrating 4 mg PO Q8H PRN (Reason: Nausea And Vomiting) mecobalamin (vitamin B12) 1,000 mcg tablet,chewable 1,000 mcg PO HS pramipexole 0.5 mg tablet 0.5 mg PO HS Qty: 20 0RF Rx Instructions: 1 tab po at bedtime, may increase to BID prn. sildenafil 100 mg tablet 100 mg PO DAILY PRN (Reason: sexual activity) Rx Instructions: Administer 30 minutes to 4 hours before activity. cholecalciferol (vitamin D3) 25 mcg (1,000 unit) capsule 1,000 unit PO HS glycopyrrolate 1 mg tablet 1 mg PO DAILY Qty: 30 1RF omeprazole 20 mg capsule,delayed release(DR/EC) 20 mg PO HS dicyclomine 10 mg capsule 10 mg PO BID PRN (Reason: ABD PAIN) aspirin [Alice Low Dose Aspirin] 81 mg tablet,delayed release (DR/EC) 81 mg PO HS pravastatin 40 mg tablet 20 mg PO HS metoprolol succinate 25 mg tablet extended release 24 hr 25 mg PO HS fluticasone propionate [Flonase Allergy Relief] 50 mcg/actuation spray,suspension 1 spray intranasal BID PRN (Reason: Congestion) Rx Instructions: administer into each nostril fentanyl 100 mcg/hr patch 72 hour 1 patch topical .Q48HRS Referrals Referrals: [facility] [Primary Care Provider] -
[2023-07-27 13:58] LABS: Basophils # (auto) 0.05 K/uL (0.00-0.20); Basophils % (auto) 0.7 %; Eosinophils # (auto) 0.21 K/uL (0.00-0.50); Hematocrit (blood only) 51.7 % (42.0-52.0); Hemoglobin 17.7 g/dl (14.0-18.0); Immature Granulocytes # (auto) 0.05 K/uL (0.01-0.20); Immature Granulocytes % (auto) 0.7 %; Lymphocytes # (auto) 1.67 K/uL (1.20-3.40); Lymphocytes % (auto) 23.8 %; Mean Corpuscular Hemoglobin 31.2 pg (25.0-34.0); Mean Corpuscular Hgb Conc 34.2 g/dL (32.0-36.0); Mean Platelet Volume 10.1 fL (9.4-12.4); Monocytes # (auto) 0.88 K/uL (0.11-0.59); Monocytes % (auto) 12.6 %; Neutrophils # (auto) 4.15 K/uL (1.40-6.50); Neutrophils % (auto) 59.2 %; Platelet Count 230 K/uL (130-400); RDW Coefficient of Variation 13.1 % (11.5-14.5); RDW Standard Deviation 43.9 fL (36.4-46.3); Red Blood Count 5.68 M/uL (4.70-6.10); White Blood Count 7.01 K/ul (4.8-10.8)
[2023-07-27 14:12] LABS: Albumin Globulin Ratio 1.4 (0.9-2); Albumin Level 4.6 gm/dl (3.4-5.0); BUN Creatinine Ratio 19.2 (10-20); Bilirubin,Total 1.4 mg/dl (0.2-1.0); Calcium 10.1 mg/dl (8.6-10.3); Creatinine Clr Calc Pharmacy 75.9 ml/min; Est GFR (African American) 88.4 ml/min; Est GFR (Non-African American) 76.3 ml/min; Globulin 3.4 gm/dl (2.5-4.0); Magnesium 1.8 mg/dl (1.7-2.4); Potassium 3.9 mmol/L (3.5-5.1)
[2023-07-27 14:17] LABS: Troponin I High Sensitivity 12.5 pg/ml (0-20)
[2023-07-27] MEDS: SODIUM CHLORIDE 0.9% 500 ML IV ONE (14:18)
--- NOTE | 2023-07-27 14:19 | XRay Report ---
XR chest 1V portable CLINICAL HISTORY: Chest pain, nonspecific COMPARISON STUDY: Chest CT June 11, 2022. Chest radiograph July 24, 2023. FINDINGS: Elevation the right hemidiaphragm is unchanged. No pneumothorax or pleural effusion is pres ent. There is no consolidation to suggest pneumonia. Cardiomediastinal silhouette is stable. Intersti tial prominence is unchanged. There is no evidence for overt pulmonary edema. IMPRESSION: No acute cardiopulmonary findings. No significant change in appearance of the chest. ACT 112: Negative or not required by law. Electronically signed by: Teo Paulino M.D. 07/27/2023 2:18 PM
[2023-07-27 14:26] LABS: Thyroid Stimulating Hormone 1.631 uIu/ml (0.300-4.500)
[2023-07-27 14:31] LABS: Partial Thromboplastin Ratio 0.9; Partial Thromboplastin Time 24 Seconds (21-31); Prothrombin Time 10.7 Seconds (9.0-12.0)
--- NOTE | 2023-07-27 14:54 | Cardiology Consultation ---
Date of Consultation July 27, 2023 Assessment & Plan (1) Palpitations: (2) SVT (supraventricular tachycardia): (3) Chronic respiratory failure with hypercapnia: Plan -Patient is currently in NSR 60 bpm. -Recommend increasing Metoprolol Succinate to 25 mg BID and/or adding Verapamil. Will monitor his heart rates closely on telemetry. -Patient is scheduled with [facility] on 08/23/23 for further evaluation of his SVT. Possible ablation. -BMP: Mag 1.9, K 3.9. Will give PO Potassium 20 meq with 1 gm Magnesium Sulfate ONCE. -Monitor and replace electrolytes as needed. (Recommend K > 4.0 & Mag > 2.0) Case discussed with Dr. Chang I spent a total of 60 minutes on the date of service in preparation, delivery, and documentation of the care provided to this patient, excluding any time spent in the performance of separately billed services. FELICITAS Edwards Department of Cardiology, [facility] This chart was completed in part utilizing Speech Voice Recognition Software. Grammatical errors, random word insertions, pronoun errors, and incomplete sentences are an occasional consequence of this system due to software limitations, ambient noise, and hardware issues. Any formal questions or concerns about the content, text, or information contained within the body of this dictation should be directly addressed to the provider for clarification. Supervising Physician Co-Signing Physician Notes Attending attestation: Case reviewed with the advanced practitioner. I have personally performed a history and physical examination on the patient. I have reviewed the advanced practitioner's documentation on the date of service referenced in note, and I agree with, and take responsibility for the plan of care. EKG on arrival today revealed narrow complex tachycardia at 145 bpm, perhaps AV latricia reentrant tachycardia. Patient received adenosine with successful conversion to sinus rhythm. Sinus rhythm in the 60s to 70s noted during my assessment. Repeat EKG at 1327 revealed sinus tachycardia 104 bpm with incomplete right bundle branch block. Increase metoprolol to succinate from 25 mg to twice daily with caution given history of baseline sinus bradycardia at time of recent outpatient cardiology visit. Monitor on telemetry overnight. I spent a total of 20 minutes coordinating, documenting, and providing care for this patient excluding time spent in the performance of separately billed services or time spent by another provider. Feliz Chang, DO History of Present Illness Reason for Consultation: SVT Requesting Physician: [facility] Attending Physician: Dr. Chang History of Present Illness Basim Alvarez is a 72 year old male with a past medical history of SVT, asymptomatic resting sinus bradycardia, hypertension, chronic back pain , paralyzed hemidiaphragm, chronic hypercapnia respiratory failure and CHITRA on BiPAP. Hospitalized 05/2022 due to supraventricular tachycardia with associated hypotension. Episode of SVT responded to adenosine in the ER May 2022. Patient was seen at [facility] ED on 07/24/23 with racing heart rates. Found to be in SVT. Patient was given IV fluids and 6 mg of adenosine IV. Patient converted to a sinus rhythm. Returned to [facility] ED on 07/27/23 with rapid heart rates and palpitations. States that it was more persistent and lasted more than 30 minutes. No chest pain or shortness of breath. Treated again with IV 6 mg Adenosine and IV Lopressor 5 mg once. He did take his morning dose of Metoprolol Succinate 25 mg daily. Patient is currently resting in bed comfortably. is at bedside. He states that SVT episodes happen at least 1-2x per week. SVT occurs at rest or with activities. Scheduled with [facility] on 08/23/23. Denies missing any doses of his medications. Denies tobacco, alcohol, and illicit drug use. Denies caffeine use. 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 No ill contacts, fevers, or chills. Allergies Allergy/AdvReac Type Severity Reaction Status Date / Time bee venom protein (honey bee) Allergy Severe EXCESSIVE Verified 07/12/23 10:56 SWELLING AT SITE sulfamethoxazole Allergy Severe TONGUE Verified 07/12/23 10:56 SWELLS, WHITE BLISTERS IN MOUTH. trimethoprim Allergy Severe TONGUE Verified 07/12/23 10:56 SWELLS, WHITE BLISTERS IN MOUTH. adhesive Allergy Intermediate SKIN Verified 07/12/23 10:56 IRRITATION morphine AdvReac Intermediate PROJECTILE Verified 07/12/23 10:56 VOMITING Home Medications Medication Instructions Recorded Confirmed Type cyclobenzaprine 10 mg tablet 10 mg PO HS 02/28/19 07/27/23 History omeprazole 20 mg capsule,delayed 20 mg PO HS 02/28/19 07/27/23 History release ondansetron 4 mg disintegrating 4 mg PO Q8H PRN Nausea And Vomiting 04/10/19 07/27/23 History tablet dicyclomine 10 mg capsule 10 mg PO BID PRN ABD PAIN 02/12/20 07/27/23 History aspirin 81 mg tablet,delayed 81 mg PO HS 02/22/22 07/27/23 History release (Alice Low Dose Aspirin) pramipexole 0.5 mg tablet 0.5 mg PO HS #20 tabs 07/24/22 07/27/23 Rx mecobalamin (vitamin B12) 1,000 1,000 mcg PO HS 07/26/22 07/27/23 History mcg chewable tablet pravastatin 40 mg tablet 20 mg PO HS 12/04/22 07/27/23 History testosterone (AndroGel) 2 pump topical HS #75 grams 12/07/22 07/27/23 Rx fluticasone propionate 50 1 spray intranasal BID PRN 12/28/22 07/27/23 History mcg/actuation nasal Congestion spray,suspension (Flonase Allergy Relief) metoprolol succinate 25 mg 25 mg PO HS 12/28/22 07/27/23 History tablet,extended release 24 hr cholecalciferol (vitamin D3) 25 1,000 unit PO HS 01/19/23 07/27/23 History mcg (1,000 unit) capsule fentanyl 100 mcg/hr transdermal 1 patch topical .Q48HRS 04/09/23 07/27/23 History patch alfuzosin 10 mg tablet,extended 10 mg PO DAILY #30 tabs 06/21/23 07/27/23 Rx release 24 hr glycopyrrolate 1 mg tablet 1 mg PO DAILY #30 tabs 07/12/23 07/27/23 Rx Patient History Medical History (Updated 07/27/23 @ 16:37 by Monster Bennett PA-C) Chronic back pain Acute hypercapnic respiratory failure SVT (supraventricular tachycardia) COVID-19 BPH with obstruction/lower urinary tract symptoms Dysuria Iron deficiency Acute opioid withdrawal Accidental overdose Pituitary dysfunction Diaphragmatic disorder Restrictive lung disease Pneumonia RLS (restless legs syndrome) Severe obstructive sleep apnea History of acute renal failure BPH (benign prostatic hyperplasia) Prostatitis Recurrent pneumonia Non-ST elevation IN (NSTEMI) Depression GERD (gastroesophageal reflux disease) Hypertension Surgical History History of mandibular surgery History of carpal tunnel release History of surgery mass removed from left side of clavicle History of ankle surgery Britton reconstruction-right side Status post trigger finger release Family History Mother Cancer Hypertension Myasthenia gravis Breast cancer Son Environmental allergies Asthma Sister Gallbladder disease Father Alzheimer disease Grandmother (Maternal) Colorectal cancer Family/Other Myocardial infarction Other No family history of bleeding disorder Denies family history of Ovarian cancer Prostate cancer Social History Smoking Status: Former smoker Tobacco Type: Cigarettes Second Hand Exposure: No; Do You Dip or Chew Tobacco: No; Hx Alcohol Use: No Hx Substance Use: No Preferred Language: Spanish Communication Ability: Effective Precision 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 Operator Required: No Beliefs That Will Affect Care: None marital status: Current Living Situation: Spouse current occupational status: retired Feels Safe at Home: Yes Childhood Exposure to Second-Hand Smoke: Yes Dental Care, Regularly: No Physical Activity Frequency: Does not Exercise Seatbelt Use: never Sunscreen Use: Yes Assistive Devices: Cane, CPAP and Oxygen - at Night Review of Systems Review of Systems: All systems reviewed & are unremarkable except as noted in HPI & below Physical Exam Constitutional: WD/WN, vitals as above + disheveled Respiratory: no respiratory distress Auscultation: + diminished lung sounds; no crackles, no rales and no wheezes Cardiovascular: RRR, no murmur, no edema Rate/Rhythm: regular rate and regular rhythm Neurologic: PERRL, EOMI, accommodation nl, no face palsy, no dysarthria Psychiatric: A+Ox3, euthymic affect Results & Data Vital Signs (Past 12 Hours) Vital Signs Temp Pulse Pulse Resp BP BP Pulse Ox 07/27/23 14:05 62 124/72 07/27/23 13:48 96 07/27/23 13:33 134/86 07/27/23 13:33 89 17 93 07/27/23 13:30 96 H 16 96 07/27/23 13:30 129/87 07/27/23 13:30 97 H 07/27/23 13:30 96 H 129/87 07/27/23 13:27 149/94 H 07/27/23 13:27 104 H 21 07/27/23 13:27 105 H 07/27/23 13:23 143 H 138/96 07/27/23 13:21 147 H 22 94 07/27/23 13:20 146 H 18 96 07/27/23 13:19 138/96 07/27/23 13:19 144 H 16 96 07/27/23 13:18 145 H 18 07/27/23 13:15 147 H 21 126/101 H 96 07/27/23 13:00 37.0 C 156 H 15 126/84 96 O2 Del Method 07/27/23 14:05 07/27/23 13:48 07/27/23 13:33 07/27/23 13:33 07/27/23 13:30 07/27/23 13:30 07/27/23 13:30 07/27/23 13:30 07/27/23 13:27 07/27/23 13:27 07/27/23 13:27 07/27/23 13:23 07/27/23 13:21 Room Air 07/27/23 13:20 07/27/23 13:19 07/27/23 13:19 07/27/23 13:18 07/27/23 13:15 Room Air 07/27/23 13:00 Room Air Laboratory Results Cardiac Enzymes 07/27/23 Range/Units 13:35 AST 20 (13-39) U/L Troponin I High Sens 12.5 (0-20) pg/ml Coagulation 07/27/23 Range/Units 13:35 PT 10.7 (9.0-12.0) Seconds APTT 24 (21-31) Seconds CBC 07/27/23 Range/Units 13:35 WBC 7.01 (4.8-10.8) K/ul RBC 5.68 (4.70-6.10) M/uL Hgb 17.7 (14.0-18.0) g/dl Hct 51.7 (42.0-52.0) % Plt Count 230 (130-400) K/uL Neut # (Auto) 4.15 (1.40-6.50) K/uL Lymph # (Auto) 1.67 (1.20-3.40) K/uL [place] # (Auto) 0.88 H (0.11-0.59) K/uL Eos # (Auto) 0.21 (0.00-0.50) K/uL Baso # (Auto) 0.05 (0.00-0.20) K/uL Comprehensive Metabolic Panel 07/27/23 Range/Units 13:35 Sodium 140 (136-145) mmol/L Potassium 3.9 (3.5-5.1) mmol/L Chloride 101 (98-107) mmol/L Carbon Dioxide 33 H (21-32) mmol/L BUN 19 (6-23) mg/dl Creatinine 0.99 (0.6-1.4) mg/dl Glucose 95 (70-99(Fasting)) mg/dl Calcium 10.1 (8.6-10.3) mg/dl AST 20 (13-39) U/L ALT 18 (7-52) U/L Alkaline Phosphatase 54 (34-104) U/L Total Protein 8.0 (6.0-8.3) gm/dl Albumin 4.6 (3.4-5.0) gm/dl Intake and Output 07/26/23 07/27/23 07/27/23 22:59 06:59 14:59 Intake Total 1000 / 1000 Balance 1000 / 1000 Intake: IV 1000 / 1000 Sodium Chloride 0.9% 1,000 ml @ 1000 / 1000 999 mls/hr IV .Q1H1M STA Rx#: [id number] Other: Weight 96.9 kg Weight Measurement Method Built in [facility] Patient Weight 07/28/23 06:59 Weight 96.9 kg Diagnostic Findings Telemetry reviewed during exam: NSR 60 bpm. EKG 07/27/23 SVT 145 bpm Chest X-Ray 07/27/23 13:05 IMPRESSION: No acute cardiopulmonary findings. No significant change in appearance of the chest. Dobutamine Stree Echo [facility], 07/27/2022: Normal dobutamine stress echocardiogram without evidence of ischemia. Normal left ventricular size and systolic function. Mild concentric left ventricular hypertrophy. Mild left atrial dilatation. Grade 1 diastolic dysfunction. No significant valvular heart disease. ECG [facility] 05/31/2022 16:56 : Supraventricular tachycardia, likely AV latricia reentry, 161 beats per minute.
[2023-07-27] MEDS: POTASSIUM CHLORIDE CRTAB 20 MEQ TABCR PO ONE (15:00)
[2023-07-27] MEDS: MAGNESIUM SULFATE / D5W 1 GM/100 ML BAG IV ONE (15:00)
--- NOTE | 2023-07-27 16:12 | History & Physical Report ---
Date of Service July 27, 2023 Assessment & Plan (1) SVT (supraventricular tachycardia): Plan: -Admit to the PCU on tele -Currently stable and back in NSR -Presented to the ED with recurrent SVT, HR in the 140's on arrival -This was his second ED visit for SVT in the past 72 hours -Resturned to NSR after 6mg IV adenosine and 5 mg IV lopressor -[facility] was consulted and saw the patient, appreciate their assistance >Recommends increasing the patient's metoprolol succinate to 25 mg PO BID >If needed, can also add Verapamil -Will plan to start PO Metoprolol succinate at 25 mg BID tonight -Continue aspirin and statin -Continue to monitor electrolytes >Keep potassium above 4 and mag above 2 -SQ lovenox for DVT PPX -HH diet -AM CBC, BMP, mag, PT/INR (2) Chronic respiratory failure with hypercapnia: Plan: -Currently stable on RA -Uses prn O2 during the day -Incentive spirometry -PRN O2 to keep SpO2 between 92-94% -PRN Levalbuterol nebs; would avoid albuterol with recent SVT (3) Obstructive sleep apnea: Plan: -HS CPAP/Bipap ordered (4) Chronic back pain: Plan: -Patient is on a chronic, 100 mcg fentanyl patch q72h -Next patch is due at 1700, will order now -Monitor for oversedation/respiratory depression Plan The patient was discussed with Dr. Oliveros at the time of the admission History of Present Illness Chief Complaint: Heart palpitations Primary Care Provider: [facility] Basim is a 72-year-old male with a PMH significant for SVT, sinus bradycardia, COPD on chronic 2L NC, severe sleep disordered breathing on nocturnal BiPAP, chronic back pain on TD Fentanyl, HTN, and BPH who presented to the [facility] ED on 07/27/23 with a chief complaint of palpitations and tachycardia. Was noted to be in SVT with HR in the 140's on arrival but was otherwise Labs were significant for a potassium of 3.9, mag of 1.8, and high sen trop WNL. Chest xray was negative for acute findings. He was given 6 mg IV adenosine, 5 mg IV lopressor, 1gm IV mag sulfate, 20 meq PO KCL, and 1.5L NSS and his HR returned to NSR. [facility] was consulted and recommended increasing Metoprolol Succinate to 25 mg BID and/or adding Verapamil and observation on telemetry. At the time of the exam the patient was lying in bed in no acute distress. States that we woke around noon in his normal state of health. He got up and walked to the bathroom to take a shower and had acute onset of his recurrent SVT/heart palpitations. Denies chest pain, SOB, lightheadedness, dizziness, cough, abd pain, nausea, vomiting, diarrhea, dysuria, hematuria, LE swelling/leg pain, and recent trauma. He is currently asymptomatic at rest. He did have his am medications including his PO metoprolol succinate. He is still using PRN O2 during the day and using his nocturnal Bipap with prn O2. He is a full code and would want his to make medical decisions for him if he cannot make them himself. Denies recent tobacco use, alcohol or recreational drug use. Please refer to Dr. Oliveros's attestation for any changes to the treatment plan Allergies Allergy/AdvReac Type Severity Reaction Status Date / Time bee venom protein (honey bee) Allergy Severe EXCESSIVE Verified 07/12/23 10:56 SWELLING AT SITE sulfamethoxazole Allergy Severe TONGUE Verified 07/12/23 10:56 SWELLS, WHITE BLISTERS IN MOUTH. trimethoprim Allergy Severe TONGUE Verified 07/12/23 10:56 SWELLS, WHITE BLISTERS IN MOUTH. adhesive Allergy Intermediate SKIN Verified 07/12/23 10:56 IRRITATION morphine AdvReac Intermediate PROJECTILE Verified 07/12/23 10:56 VOMITING Home Medications Medication Instructions Recorded Confirmed Type cyclobenzaprine 10 mg tablet 10 mg PO HS 02/28/19 07/27/23 History omeprazole 20 mg capsule,delayed 20 mg PO HS 02/28/19 07/27/23 History release ondansetron 4 mg disintegrating 4 mg PO Q8H PRN Nausea And Vomiting 04/10/19 07/27/23 History tablet dicyclomine 10 mg capsule 10 mg PO BID PRN ABD PAIN 02/12/20 07/27/23 History aspirin 81 mg tablet,delayed 81 mg PO HS 02/22/22 07/27/23 History release (Alice Low Dose Aspirin) pramipexole 0.5 mg tablet 0.5 mg PO HS #20 tabs 07/24/22 07/27/23 Rx mecobalamin (vitamin B12) 1,000 1,000 mcg PO HS 07/26/22 07/27/23 History mcg chewable tablet pravastatin 40 mg tablet 20 mg PO HS 12/04/22 07/27/23 History testosterone (AndroGel) 2 pump topical HS #75 grams 12/07/22 07/27/23 Rx fluticasone propionate 50 1 spray intranasal BID PRN 12/28/22 07/27/23 History mcg/actuation nasal Congestion spray,suspension (Flonase Allergy Relief) metoprolol succinate 25 mg 25 mg PO HS 12/28/22 07/27/23 History tablet,extended release 24 hr cholecalciferol (vitamin D3) 25 1,000 unit PO HS 01/19/23 07/27/23 History mcg (1,000 unit) capsule fentanyl 100 mcg/hr transdermal 1 patch topical .Q48HRS 04/09/23 07/27/23 Hi story patch alfuzosin 10 mg tablet,extended 10 mg PO DAILY #30 tabs 06/21/23 07/27/23 Rx release 24 hr glycopyrrolate 1 mg tablet 1 mg PO DAILY #30 tabs 07/12/23 07/27/23 Rx Past Med/Surg History Medical History (Updated 07/28/23 @ 08:20 by FELICITAS Hubbard) Chronic back pain Acute hypercapnic respiratory failure SVT (supraventricular tachycardia) COVID-19 BPH with obstruction/lower urinary tract symptoms Dysuria Iron deficiency Acute opioid withdrawal Accidental overdose Pituitary dysfunction Diaphragmatic disorder Restrictive lung disease Pneumonia RLS (restless legs syndrome) Severe obstructive sleep apnea History of acute renal failure BPH (benign prostatic hyperplasia) Prostatitis Recurrent pneumonia Non-ST elevation [place] (NSTEMI) Depression GERD (gastroesophageal reflux disease) Hypertension Surgical History History of mandibular surgery History of carpal tunnel release History of surgery mass removed from left side of clavicle History of ankle surgery Britton reconstruction-right side Status post trigger finger release Family History Mother Cancer Hypertension Myasthenia gravis Breast cancer Son Environmental allergies Asthma Sister Gallbladder disease Father Alzheimer disease Grandmother (Maternal) Colorectal cancer Family/Other Myocardial infarction Other No family history of bleeding disorder Denies family history of Ovarian cancer Prostate cancer Social History Smoking Status: Former smoker Tobacco Type: Cigarettes Second Hand Exposure: No; Do You Dip or Chew Tobacco: No; Hx Alcohol Use: No Hx Substance Use: No Preferred Language: Luxembourger Communication Ability: Effective Tip Fixer Required: No Beliefs That Will Affect Care: None marital status: Current Living Situation: Spouse current occupational status: retired Other Information That Helps Us Care for You: No Feels Safe at Home: Yes Safety Concerns: Feels Safe At This Time Childhood Exposure to Second-Hand Smoke: Yes Dental Care, Regularly: No Physical Activity Frequency: Does not Exercise Seatbelt Use: never Sunscreen Use: Yes Assistive Devices: CPAP and Oxygen - Continuous Physical Exam Physical Exam: Physical Exam: General: In no acute distress, stated age, well-nourished, good hygiene HEENT: Normocephalic, atraumatic, no scleral icterus, pupils around round, symmetrical, and reactive to light, moist mucus membranes, trachea midline, no thyromegaly Chest/Pulm: No respiratory distress, symmetrical chest expansion, clear breath sounds throughout Cardiac: RRR, no murmurs noted Abdomen: Negative for ascites and bruising, normoactive bowel sounds, soft, non-tender to palpation throughout Musculoskeletal: Symmetrical and without signs of acute trauma, upper and lower extremities with full ROM, no atrophy, spasticity, or flaccidity Extremities: Radial, dorsalis pedis, and posterior tibial pulses are intact and symmetrical, no edema noted in the BL LE's Skin: Warm, dry, no rashes , lesions, or scars noted Neuro: Alert and oriented to person, place, month, year, and president, no focal defects, no tremors noted Psych: No acute distress, calm and cooperative during the exam Results & Data Results & Data Vital Signs (Past 12 Hours) Vital Signs Temp Pulse Pulse Resp BP BP Pulse Ox 07/27/23 15:31 149/91 H 07/27/23 15:31 61 16 96 07/27/23 15:30 60 19 97 07/27/23 15:20 66 20 96 07/27/23 15:15 145/96 H 07/27/23 15:15 62 20 95 07/27/23 15:10 83 27 H 94 04/05/24 15:00 130/84 07/27/23 15:00 62 21 95 07/27/23 15:00 76 20 130/84 96 07/27/23 14:50 88 20 07/27/23 14:45 71 19 95 07/27/23 14:45 163/112 H 07/27/23 14:40 66 15 96 07/27/23 14:30 66 17 95 07/27/23 14:30 138/99 07/27/23 14:20 63 20 97 07/27/23 14:16 130/102 H 07/27/23 14:16 65 18 93 07/27/23 14:10 63 16 96 07/27/23 14:05 62 124/72 07/27/23 14:00 64 21 97 07/27/23 14:00 140/98 07/27/23 13:50 80 27 H 95 07/27/23 13:49 84 17 96 07/27/23 13:49 142/87 H 07/27/23 13:48 96 07/27/23 13:33 134/86 07/27/23 13:33 89 17 93 07/27/23 13:30 96 H 16 96 07/27/23 13:30 129/87 07/27/23 13:30 97 H 07/27/23 13:30 96 H 129/87 07/27/23 13:27 149/94 H 07/27/23 13:27 104 H 21 07/27/23 13:27 105 H 07/27/23 13:23 143 H 138/96 07/27/23 13:21 147 H 22 94 07/27/23 13:20 146 H 18 96 07/27/23 13:19 138/96 07/27/23 13:19 144 H 16 96 07/27/23 13:18 145 H 18 07/27/23 13:15 147 H 21 126/101 H 96 07/27/23 13:00 37.0 C 156 H 15 126/84 96 O2 Del Method 07/27/23 15:31 07/27/23 15:31 07/27/23 15:30 07/27/23 15:20 07/27/23 15:15 07/27/23 15:15 07/27/23 15:10 07/27/23 15:00 07/27/23 15:00 07/27/23 15:00 Room Air 07/27/23 14:50 07/27/23 14:45 07/27/23 14:45 07/27/23 14:40 07/27/23 14:30 07/27/23 14:30 07/27/23 14:20 07/27/23 14:16 07/27/23 14:16 07/27/23 14:10 07/27/23 14:05 07/27/23 14:00 07/27/23 14:00 07/27/23 13:50 07/27/23 13:49 07/27/23 13:49 07/27/23 13:48 07/27/23 13:33 07/27/23 13:33 07/27/23 13:30 07/27/23 13:30 07/27/23 13:30 07/27/23 13:30 07/27/23 13:27 07/27/23 13:27 07/27/23 13:27 07/27/23 13:23 07/27/23 13:21 Room Air 07/27/23 13:20 07/27/23 13:19 07/27/23 13:19 07/27/23 13:18 07/27/23 13:15 Room Air 07/27/23 13:00 Room Air Laboratory Results Abnormal lab results 07/27/23 Range/Units 13:35 [place] # (Auto) 0.88 H (0.11-0.59) K/uL Carbon Dioxide 33 H (21-32) mmol/L Total Bilirubin 1.4 H (0.2-1.0) mg/dl Diagnostic Findings Chest X-Ray 07/27/23 13:05 XR chest 1V portable CLINICAL HISTORY: Chest pain, nonspecific COMPARISON STUDY: Chest CT June 11, 2022. Chest radiograph July 24, 2023. FINDINGS: Elevation the right hemidiaphragm is unchanged. No pneumothorax or pleural effusion is present. There is no consolidation to suggest pneumonia. Cardiomediastinal silhouette is stable. Interstitial prominence is unchanged. There is no evidence for overt pulmonary edema. IMPRESSION: No acute cardiopulmonary findings. No significant change in appearance of the chest. ACT 112: Negative or not required by law. Electronically signed by: Teo Paulino M.D. 07/27/2023 2:18 PM ECG Additional Comments: Supraventricular tachycardia Otherwise normal ECG When compared with ECG of 24-JUL-2023 03:10, OR interval has decreased Code Status & VTE Plan Code Status Full code VTE Prophylaxis Plan VTE Prophylaxis will be ordered: Yes Supervising Physician Co-Signing Physician Notes I personally saw and examined the patient. I verified all patiño points and agree with Monster Bennett PA-C with the following exceptions and/or additions: 72 year old male presents to the ER with recurrent SVT. Terminated with adenosine in the ER. Known diagnosis with evaluation for ablation in August at [facility]. O/E HS RRR, no murmurs, Chest CTAB, Abdo SNT A/P SVT - plan per cardiology to increase metoprolol succinate to BID. Monitor overnight PG Care Time/CCT Total # of Minutes Spent Total Time Spent with Patient: Total time spent is greater than 50% in coordination of care (as documented) at patient's floor/unit and/or counseling patient: Coding [place] [address] INT INP/OBS CARE 2/55MIN Patient Type Established Medical Decision Making High Complexity Diagnoses SVT (supraventricular tachycardia) I47.10 Chronic respiratory failure with hypercapnia J96.12 Obstructive sleep apnea G47.33 Chronic back pain M54.9; G89.29
[2023-07-27] MEDS: fentaNYL 100 MCG/HR TDSY TD SCH ×2 (17:55→18:00)
[2023-07-27] MEDS ORDERED: LEVALBUTEROL 1.25 MG/3 ML NEB NEB PRN (18:32)
[2023-07-27] MEDS ORDERED: DICYCLOMINE HCL 10 MG CAP PO PRN (18:32)
[2023-07-27] MEDS: PRAVASTATIN SOD 20 MG TAB PO SCH (20:30)
[2023-07-27] MEDS: ENOXAPARIN INJ 40 MG/0.4 ML SYR SQ SCH (20:30)
[2023-07-27] MEDS: ASPIRIN 81 MG ECTAB PO SCH (20:30)
[2023-07-27] MEDS: PANTOprazole 40 MG TAB PO SCH (20:31)
[2023-07-27] MEDS: PRAMIPEXOLE DIHYDROCHLO 0.5 MG TAB PO SCH (20:31)
[2023-07-27] MEDS: METOPROLOL SUCC 25MG EXT REL TAB PO SCH (20:31)
[2023-07-27] MEDS: CYCLOBENZAPRINE HCL 10 MG TAB PO SCH (20:32)
[2023-07-27] MEDS ORDERED: METOPROLOL SUCC 25MG EXT REL TAB PO SCH (21:00)
[2023-07-28] MEDS: CHECK fentaNYL PATCH PLACEMENT SCH
[2023-07-28 06:39] LABS: Basophils # (auto) 0.05 K/uL (0.00-0.20); Basophils % (auto) 0.7 %; Eosinophils % (auto) 4.4 %; Hematocrit (blood only) 44.7 % (42.0-52.0); Hemoglobin 14.6 g/dl (14.0-18.0); Immature Granulocytes # (auto) 0.05 K/uL (0.01-0.20); Immature Granulocytes % (auto) 0.7 %; Lymphocytes # (auto) 1.98 K/uL (1.20-3.40); Lymphocytes % (auto) 29.3 %; Mean Corpuscular Hemoglobin 30.5 pg (25.0-34.0); Mean Corpuscular Hgb Conc 32.7 g/dL (32.0-36.0); Mean Corpuscular Volume 93.5 fL (80.0-100.0); Mean Platelet Volume 10.1 fL (9.4-12.4); Monocytes # (auto) 0.73 K/uL (0.11-0.59); Monocytes % (auto) 10.8 %; Neutrophils # (auto) 3.64 K/uL (1.40-6.50); Neutrophils % (auto) 54.1 %; Platelet Count 206 K/uL (130-400); RDW Standard Deviation 44.5 fL (36.4-46.3); Red Blood Count 4.78 M/uL (4.70-6.10); White Blood Count 6.75 K/ul (4.8-10.8)
[2023-07-28 06:53] LABS: BUN Creatinine Ratio 18.5 (10-20); Calcium 8.8 mg/dl (8.6-10.3); Creatinine Clr Calc Pharmacy 80.2 ml/min; Est GFR (African American) 96.6 ml/min; Est GFR (Non-African American) 83.4 ml/min; Magnesium 1.9 mg/dl (1.7-2.4)
[2023-07-28 06:58] LABS: Prothrombin Time 10.8 Seconds (9.0-12.0)
--- NOTE | 2023-07-28 07:37 | Electrocardiogram Report ---
Test Reason : Blood Pressure : / mmHG Vent. Rate : 145 BPM Atrial Rate : 000 BPM P-R Int : 000 ms QRS Dur : 094 ms QT Int : 288 ms P-R-T Axes : 000 033 058 degrees QTc Int : 447 ms Supraventricular tachycardia , cannot exclude sinus tachycardia Otherwise normal ECG When compared with ECG of 24-JUL-2023 03:10, HR has increased Confirmed by Dave Lay ([id number]) on 07/28/2023 7:37:32 AM Referred By: REFERRED SELF Confirmed By:Dave Lay
--- NOTE | 2023-07-28 07:38 | Electrocardiogram Report ---
Test Reason : Blood Pressure : / mmHG Vent. Rate : 104 BPM Atrial Rate : 104 BPM P-R Int : 222 ms QRS Dur : 094 ms QT Int : 330 ms P-R-T Axes : 065 -11 042 degrees QTc Int : 433 ms Sinus tachycardia with 1st degree A-V block Incomplete right bundle branch block Borderline ECG When compared with ECG of 27-JUL-2023 13:16, (unconfirmed) HR has decreased Confirmed by Dave Lay ([id number]) on 07/28/2023 7:38:00 AM Referred By: REFERRED SELF Confirmed By:Dave Lay
[2023-07-28] MEDS: ONDANSETRON INJ 2 MG/ML 2 ML VIAL ONE (08:05)
[2023-07-28] MEDS: ONDANSETRON INJ 2 MG/ML 2 ML VIAL IV STA (08:09)
--- NOTE | 2023-07-28 08:23 | Cardiology Progress Note ---
<Statement entered by Marla Laughlin, - 07/28/23 12:17> I have reviewed the advanced practitioner's documentation and agree with the plan of care. I accept the responsibility for the associated risk. pt seen in cardiology f/u due to SVT; pt has had recurrent SVT that has responded to adenosine for the past year and seems to be happening more often and he is more symptomatic. I discussed with him about an EPS and possible ablation I discussed the procedure and potential risks of the procedure which include heart attacks, CVA, , arrhythmias, injury to blood vessels/cardiac chambers or the [place] electrical system where he will need a permanent pacemaker I told him I can do that locally here at [facility] on 08/08/2023; he would like to proceed; my office will call him this week with details for the procedure He is otherwise ok for discharge home today; he can continue his normal home dose of metoprolol and vagal maneuvers at the onset of symptoms I spent a total of [30] minutes coordinating, documenting, and providing care for this patient excluding time spent in the performance of separately billed services or time spent by another provider/QHP. Date of Service July 28, 2023 Assessment & Plan (1) Palpitations: (2) SVT (supraventricular tachycardia): (3) Chronic respiratory failure with hypercapnia: (4) AVNRT (AV latricia re-entry tachycardia): Plan Patient currently admitted after receiving IV adenosine for SVT/AVNRT He successfully converted to normal sinus rhythm and has been able to maintain overnight Continue metoprolol succinate 25 mg twice daily Ultimately will benefit from EPS/ablation for further evaluation which can be coordinated as an outpatient this was discussed with him today and he was agreeable Encouraged continued compliance with BiPAP Reviewed telemetry indicates he has maintained sinus rhythm with adequate rate control overnight Case discussed with Dr. Laughlin. Please see attestation for additional recommendations. I spent a total of 30 minutes on the date of service in preparation, delivery, and documentation of the care provided to the patient excluding any time spent in the performance of separately billed services. FELICITAS Holloway Department of Cardiology, [facility] This chart was completed in part utilizing Speech Voice Recognition Software. Grammatical errors, random word insertions, pronoun errors, and incomplete sentences are an occasional consequence of this system due to software limitations, ambient noise, and hardware issues. Any formal questions or concerns about the content, text, or information contained within the body of this dictation should be directly addressed to the provider for clarification. Admission and Anticipated Discharge Date Admission Date: July 27, 2023 Subjective 72-year-old male seen cardiology follow-up today in regard to SVT/AVNRT. He has had ongoing issue with intermittent palpitations and higher heart rates for the last 2 years occurring several times per week. Presented to the ER yesterday with rapid heart rate requiring IV adenosine for conversion. He does attempt several different maneuvers at home bearing down to attempt conversion which has never alleviated these issues. He has been feeling well since the adenosine yesterday with no recurrence of symptoms and is felt that his heart rates are well-controlled. Review of Systems Constitutional: no fever and no chills Respiratory: no cough and no dyspnea Cardiovascular: + palpitations; no chest pain and no rashawn ma Gastrointestinal: no abdominal pain, no nausea and no vomiting Integumentary: no rash and no lesions Neurologic: + gait abnormality (Ambulates with a can e); no unsteadiness Physical Exam Constitutional: WD/WN, vitals as above well developed and well nourished; no acute distress Eyes: PERRL, conjunctivae normal, anicteric sclerae Neck: trachea midline, no thyromegaly Respiratory: normal respiratory effort, lungs clear to auscultation no respiratory distress Cardiovascular: Rate/Rhythm: regular rate and regular rhythm Heart Sounds: normal S1 and normal S2 Vessels: no JVD and no carotid bruit Gastrointestinal (Abdomen): normal bowel sounds, soft, nontender, no hepatosplenomegaly Psychiatric: A+Ox3, euthymic affect Results & Data Vital Signs (Past 12 Hours) Vital Signs Temp Pulse Pulse Resp BP Pulse Ox O2 Del Method 07/28/23 07:55 36.3 C L 46 L 19 155/82 H 96 Room Air 07/28/23 04:32 13 07/28/23 02:42 36.3 C L 46 L 18 124/74 97 Room Air 07/28/23 00:26 48 L 21 98 07/27/23 23:23 36.8 C 50 L 18 92/57 L 95 Room Air 07/27/23 22:01 53 L 07/27/23 20:32 65 O2 Flow Rate 07/28/23 07:55 07/28/23 04:32 3 07/28/23 02:42 07/28/23 00:26 3 07/27/23 23:23 07/27/23 22:01 07/27/23 20:32 Laboratory Results Cardiac Enzymes 07/27/23 Range/Units 13:35 AST 20 (13-39) U/L Troponin I High Sens 12.5 (0-20) pg/ml Coagulation 07/27/23 07/28/23 Range/Units 13:35 05:46 PT 10.7 10.8 (9.0-12.0) Seconds APTT 24 (21-31) Seconds CBC 07/27/23 07/28/23 Range/Units 13:35 05:46 WBC 7.01 6.75 (4.8-10.8) K/ul RBC 5.68 4.78 (4.70-6.10) M/uL Hgb 17.7 14.6 D (14.0-18.0) g/dl Hct 51.7 44.7 (42.0-52.0) % Plt Count 230 206 (130-400) K/uL Neut # (Auto) 4.15 3.64 (1.40-6.50) K/uL Lymph # (Auto) 1.67 1.98 (1.20-3.40) K/uL [place] # (Auto) 0.88 H 0.73 H (0.11-0.59) K/uL Eos # (Auto) 0.21 0.30 (0.00-0.50) K/uL Baso # (Auto) 0.05 0.05 (0.00-0.20) K/uL Comprehensive Metabolic Panel 07/27/23 07/28/23 Range/Units 13:35 05:46 Sodium 140 136 (136-145) mmol/L Potassium 3.9 4.0 (3.5-5.1) mmol/L Chloride 101 103 (98-107) mmol/L Carbon Dioxide 33 H 31 (21-32) mmol/L BUN 19 17 (6-23) mg/dl Creatinine 0.99 0.92 (0.6-1.4) mg/dl Glucose 95 113 H (70-99(Fasting)) mg/dl Calcium 10.1 8.8 (8.6-10.3) mg/dl AST 20 (13-39) U/L ALT 18 (7-52) U/L Alkaline Phosphatase 54 (34-104) U/L Total Protein 8.0 (6.0-8.3) gm/dl Albumin 4.6 (3.4-5.0) gm/dl Intake and Output 07/27/23 07/28/23 07/28/23 22:59 06:59 14:59 Intake Total 820 / 2530 710 / 2530 336 / 336 Output Total 401 / 1676 1275 / 1676 500 / 500 Balance 419 / 854 -565 / 854 -164 / -164 Intake: IV 100 / 1100 Magnesium Sulfate / D5w 1 gm In 100 / 100 100 ml @ 50 mls/hr IV ONE ONE Rx#:[id number] Oral 720 / 1430 710 / 1430 336 / 336 Output: Urine 400 / 1675 1275 / 1675 500 / 500 # Bowel Movements Other: Weight 95.5 kg 93.3 kg Weight Measurement Method Stated by Patient Standing Scale Diagnostic Findings Laboratory Results WBC 6.75 K/ul (4.8-10.8) 07/28/23 05:46 RBC 4.78 M/uL (4.70-6.10) 07/28/23 05:46 Hgb 14.6 g/dl (14.0-18.0) D 07/28/23 05:46 Hct 44.7 % (42.0-52.0) 07/28/23 05:46 MCV 93.5 fL (80.0-100.0) 07/28/23 05:46 MCH 30.5 pg (25.0-34.0) 07/28/23 05:46 MCHC 32.7 g/dL (32.0-36.0) 07/28/23 05:46 RDW Std Deviation 44.5 fL (36.4-46.3) 07/28/23 05:46 RDW Coeff of Netta 13.0 % (11.5-14.5) 07/28/23 05:46 Plt Count 206 K/uL (130-400) 07/28/23 05:46 MPV 10.1 fL (9.4-12.4) 07/28/23 05:46 Immature Gran % (Auto) 0.7 % 07/28/23 05:46 Neut % (Auto) 54.1 % 07/28/23 05:46 Lymph % (Auto) 29.3 % 07/28/23 05:46 [place] % (Auto) 10.8 % 07/28/23 05:46 Eos % (Auto) 4.4 % 07/28/23 05:46 Baso % (Auto) 0.7 % 07/28/23 05:46 Neut # (Auto) 3.64 K/uL (1.40-6.50) 07/28/23 05:46 Lymph # (Auto) 1.98 K/uL (1.20-3.40) 07/28/23 05:46 [place] # (Auto) 0.73 K/uL (0.11-0.59) H 07/28/23 05:46 Eos # (Auto) 0.30 K/uL (0.00-0.50) 07/28/23 05:46 Baso # (Auto) 0.05 K/uL (0.00-0.20) 07/28/23 05:46 Immature Gran # (Auto) 0.05 K/uL (0.01-0.20) 07/28/23 05:46 PT 10.8 Seconds (9.0-12.0) 07/28/23 05:46 INR 1.0 (0.9-1.1) 07/28/23 05:46 APTT 24 Seconds (21-31) 07/27/23 13:35 PTT Ratio 0.9 07/27/23 13:35 Sodium 136 mmol/L (136-145) 07/28/23 05:46 Potassium 4.0 mmol/L (3.5-5.1) 07/28/23 05:46 Chloride 103 mmol/L (98-107) 07/28/23 05:46 Carbon Dioxide 31 mmol/L (21-32) 07/28/23 05:46 Anion Gap 2 (3-11) L 07/28/23 05:46 BUN 17 mg/dl (6-23) 07/28/23 05:46 Creatinine 0.92 mg/dl (0.6-1.4) 07/28/23 05:46 Est Cr Clr Drug Dosing 80.2 ml/min 07/28/23 05:46 Est GFR ( Amer) 96.6 ml/min 07/28/23 05:46 Est GFR (Non-Af Amer) 83.4 ml/min 07/28/23 05:46 BUN/Creatinine Ratio 18.5 (10-20) 07/28/23 05:46 Glucose 113 mg/dl (70-99(Fasting)) H 07/28/23 05:46 Calcium 8.8 mg/dl (8.6-10.3) 07/28/23 05:46 Magnesium 1.9 mg/dl (1.7-2.4) 07/28/23 05:46 Total Bilirubin 1.4 mg/dl (0.2-1.0) H 07/27/23 13:35 AST 20 U/L (13-39) 07/27/23 13:35 ALT 18 U/L (7-52) 07/27/23 13:35 Alkaline Phosphatase 54 U/L (34-104) 07/27/23 13:35 Troponin I High Sens 12.5 pg/ml (0-20) 07/27/23 13:35 Total Protein 8.0 gm/dl (6.0-8.3) 07/27/23 13:35 Albumin 4.6 gm/dl (3.4-5.0) 07/27/23 13:35 Globulin 3.4 gm/dl (2.5-4.0) 07/27/23 13:35 Albumin/Globulin Ratio 1.4 (0.9-2) 07/27/23 13:35 Lipase 24 U/L (11-82) 07/27/23 13:35 TSH 1.631 uIu/ml (0.300-4.500) 07/27/23 13:35 Impressions Chest X-Ray 07/27/23 13:05 XR chest 1V portable CLINICAL HISTORY: Chest pain, nonspecific COMPARISON STUDY: Chest CT June 11, 2022. Chest radiograph July 24, 2023. FINDINGS: Elevation the right hemidiaphragm is unchanged. No pneumothorax or pleural effusion is present. There is no consolidation to suggest pneumonia. Cardiomediastinal silhouette is stable. Interstitial prominence is unchanged. There is no evidence for overt pulmonary edema. IMPRESSION: No acute cardiopulmonary findings. No significant change in appearance of the chest. ACT 112: Negative or not required by law. Electronically signed by: Teo Paulino M.D. 07/27/2023 2:18 PM Medications Administered Current Inpatient Medications Aspirin (Aspirin 81 Mg Ectab) 81 mg PO HS [facility] Stop: 08/26/23 20:59 Last Admin: 07/27/23 20:30 Dose: 81 mg Cyclobenzaprine HCl (Cyclobenzaprine Hcl 10 Mg Tab) 10 mg PO HS [facility] Stop: 08/26/23 20:59 Last Admin: 07/27/23 20:32 Dose: 10 mg Dicyclomine HCl (Dicyclomine Hcl 10 Mg Cap) 10 mg PO BID PRN PRN Reason: ABD PAIN Stop: 08/26/23 18:31 Enoxaparin Sodium (Enoxaparin Inj 40 Mg/0.4 Ml Syr) 40 mg SQ Q24H [facility] Stop: 08/26/23 18:59 Last Admin: 07/27/23 20:30 Dose: 40 mg Fentanyl (Fentanyl 100 Mcg/Hr Tdsy) 100 mcg TD Q72H [facility] Stop: 08/10/23 17:59 Last Admin: 07/27/23 17:55 Dose: 100 mcg Glycopyrrolate (Glycopyrrolate 1 Mg Tab) 1 mg PO DAILY [facility] Stop: 08/27/23 08:59 Levalbuterol HCl (Levalbuterol 1.25 Mg/3 Ml Neb) 1.25 mg NEB Q6H PRN PRN Reason: Shortness Of Breath Or Wheezing Stop: 08/26/23 18:31 Metoprolol Succinate (Metoprolol Succ 25mg Ext Rel Tab) 25 mg PO BID [facility] Stop: 08/26/23 20:59 Last Admin: 07/27/23 20:31 Dose: 25 mg Miscellaneous (Check Fentanyl Patch Placement) 1 each N/A QS [facility] Stop: 08/27/23 00:00 Last Admin: 07/28/23 08:05 Dose: 1 each Miscellaneous (Fentanyl Patch Remove & Waste) 1 each N/A Q3D [facility] Stop: 08/26/23 17:59 Last Admin: 07/27/23 17:56 Dose: 1 each Pantoprazole Sodium (Pantoprazole 40 Mg Tab) 40 mg PO HS [facility]; Protocol Stop: 08/26/23 20:59 Last Admin: 07/27/23 20:31 Dose: 40 mg Pramipexole Dihydrochloride (Pramipexole Dihydrochlo 0.5 Mg Tab) 0.5 mg PO HS [facility] Stop: 08/26/23 20:59 Last Admin: 07/27/23 20:31 Dose: 0.5 mg Pravastatin Sodium (Pravastatin Sod 20 Mg Tab) 20 mg PO HS [facility] Stop: 08/26/23 20:59 Last Admin: 07/27/23 20:30 Dose: 20 mg Tamsulosin HCl (Tamsulosin Hcl 0.4 Mg Cap) 0.4 mg PO DAILY [facility]; Protocol Stop: 08/27/23 08:59
[2023-07-28] MEDS: GLYCOPYRROLATE 1 MG TAB PO SCH (09:05)
[2023-07-28] MEDS: TAMSULOSIN HCL 0.4 MG CAP PO SCH (09:05)
--- NOTE | 2023-07-28 11:27 | Discharge Summary ---
Date of Service July 28, 2023 Admission HPI Per Admitting Provider Basim is a 72-year-old male with a PMH significant for SVT, sinus bradycardia, COPD on chronic 2L NC, severe sleep disordered breathing on nocturnal BiPAP, chronic back pain on TD Fentanyl, HTN, and BPH who presented to the [facility] ED on 07/27/23 with a chief complaint of palpitations and tachycardia. Was noted to be in SVT with HR in the 140's on arrival but was otherwise Labs were significant for a potassium of 3.9, mag of 1.8, and high sen trop WNL. Chest xray was negative for acute findings. He was given 6 mg IV adenosine, 5 mg IV lopressor, 1gm IV mag sulfate, 20 meq PO KCL, and 1.5L NSS and his HR returned to NSR. [facility] Cardiology was consulted and recommended increasing Metoprolol Succinate to 25 mg BID and/or adding Verapamil and observation on telemetry. At the time of the exam the patient was lying in bed in no acute distress. States that we woke around noon in his normal state of health. He got up and walked to the bathroom to take a shower and had acute onset of his recurrent SVT/heart palpitations. Denies chest pain, SOB, lightheadedness, dizziness, cough, abd pain, nausea, vomiting, diarrhea, dysuria, hematuria, LE swelling/leg pain, and recent trauma. He is currently asymptomatic at rest. He did have his am medications including his PO metoprolol succinate. He is still using PRN O2 during the day and using his nocturnal Bipap with prn O2. He is a full code and would want his to make medical decisions for him if he cannot make them himself. Denies recent tobacco use, alcohol or recreational drug use. Please refer to Dr. Oliveros's attestation for any changes to the treatment plan Principal Diagnosis SVT Discharge Exam General: In no acute distress, stated age, well-nourished, good hygiene HEENT: Normocephalic, atraumatic Chest/Pulm: No respiratory distress, symmetrical chest expansion, clear breath sounds throughout Cardiac: RRR, no murmurs noted Abdomen: Negative for ascites and bruising, normoactive bowel sounds, soft, non- tender to palpation throughout Musculoskeletal: Symmetrical and without signs of acute trauma, upper and lower extremities with full ROM, no atrophy, spasticity, or flaccidity Extremities: Radial, dorsalis pedis, and posterior tibial pulses are intact and symmetrical, no edema noted in the BL LE's Skin: Warm, dry, no rashes , lesions, or scars noted Neuro: Alert and oriented to person, place, month, year, and president, no focal defects, no tremors noted Psych: No acute distress, calm and cooperative during the exam Discharge Data Allergies Allergy/AdvReac Type Severity Reaction Status Date / Time bee venom protein (honey bee) Allergy Severe EXCESSIVE Verified 07/12/23 10:56 SWELLING AT SITE sulfamethoxazole Allergy Severe TONGUE Verified 07/12/23 10:56 SWELLS, WHITE BLISTERS IN MOUTH. trimethoprim Allergy Severe TONGUE Verified 07/12/23 10:56 SWELLS, WHITE BLISTERS IN MOUTH. adhesive Allergy Intermediate SKIN Verified 07/12/23 10:56 IRRITATION morphine AdvReac Intermediate PROJECTILE Verified 07/12/23 10:56 VOMITING Consultations 07/27/23 14:49 ED Decision to Admit Stat 07/27/23 17:29 Consult Cardiology Routine Hospital Course (1) SVT (supraventricular tachycardia): -Admit to the PCU on tele -Currently stable and back in NSR -Presented to the ED with recurrent SVT, HR in the 140's on arrival -This was his second ED visit for SVT in the past 72 hours -Resturned to NSR after 6mg IV adenosine and 5 mg IV lopressor -[facility] was consulted and saw the patient, appreciate their assistance >Bradycardic after adding metoprolol 25 mg PO BID, so will return to once daily likely this was due to patient missing a dose at home. -Continue aspirin and statin (2) Chronic respiratory failure with hypercapnia: -Currently stable on RA -Uses prn O2 during the day -Incentive spirometry (3) Obstructive sleep apnea: -HS CPAP/Bipap ordered (4) Chronic back pain: -Patient is on a chronic, 100 mcg fentanyl patch q72h Total Time Total Time Spent Total Time Spent (In Minutes): 32 Discharge Plan Discharge Items Patient Disposition: Home - Self-Care Reason For Visit: SVT Discharge Diagnosis: SVT Condition on Discharge: Fair Activity: Resume your previous activity Non-emergency contact: Primary Care Provider Call non-emergency contact if: you have any medication questions [facility] [Primary Care Provider] - Diet: Heart Healthy Addtl Attending Provider Instructions: We will discharge you on your regular meds.Your next dose of metoprolol will be tonight. You can take an extra dose as needed for high HR (>120 per minute at rest). You will be Set up for an ablation later this month to prevent this from happening again. Pending Studies at Discharge: No Stand-Alone Forms: My [facility], Smoking Cessation Medications and DC Order Prescriptions: Continued testosterone [AndroGel] 20.25 mg/1.25 gram (1.62 %) gel in metered-dose pump 2 pump topical HS Qty: 75 5RF Rx Instructions: apply 1 pump amount over max area of each upper arm and shoulder 11/27/22 PDMP queried, ok to fill - TR alfuzosin 10 mg tablet extended release 24 hr 10 mg PO DAILY Qty: 30 5RF Rx Instructions: administer after the same meal each day cyclobenzaprine 10 mg tablet 10 mg PO HS ondansetron 4 mg tablet,disintegrating 4 mg PO Q8H PRN (Reason: Nausea And Vomiting) mecobalamin (vitamin B12) 1,000 mcg tablet,chewable 1,000 mcg PO HS pramipexole 0.5 mg tablet 0.5 mg PO HS Qty: 20 0RF Rx Instructions: 1 tab po at bedtime, may increase to BID prn. cholecalciferol (vitamin D3) 25 mcg (1,000 unit) capsule 1,000 unit PO HS glycopyrrolate 1 mg tablet 1 mg PO DAILY Qty: 30 1RF omeprazole 20 mg capsule,delayed release(DR/EC) 20 mg PO HS dicyclomine 10 mg capsule 10 mg PO BID PRN (Reason: ABD PAIN) Rx Instructions: ALWAYS TAKES DAILY aspirin [Alice Low Dose Aspirin] 81 mg tablet,delayed release (DR/EC) 81 mg PO HS pravastatin 40 mg tablet 20 mg PO HS metoprolol succinate 25 mg tablet extended release 24 hr 25 mg PO HS fluticasone propionate [Flonase Allergy Relief] 50 mcg/actuation spray,lilly pension 1 spray intranasal BID PRN (Reason: Congestion) Rx Instructions: administer into each nostril fentanyl 100 mcg/hr patch 72 hour 1 patch topical .Q48HRS Discharge Orders: Discharge Order (Routine); Ordered 07/28/23 Ordered By: Dyllan Blancas/Other Patient Handouts: Supraventricular Tachycardia, SVT, Supraventricular Tachycardia Tx Admission Data Admit Date/Time: 07/27/23 16:12 Attending Provider: Dyllan Aldrich Admit Provider: Arnold Oliveros Primary Care Provider: [facility] Other Providers: Arnold Oliveros; Feliz Chang Other Interventions: Discharge Summary Assessment (RN) Last Done: 07/28/23 11:43 Coding Level of Care Code 19937 INP/OBS DISCH >30 MIN Diagnoses SVT (supraventricular tachycardia) I47.10 Chronic respiratory failure with hypercapnia J96.12 Obstructive sleep apnea G47.33 Chronic back pain M54.9; G89.29
== END 2023-07-28 12:33 | disposition home or self-care (01) | DRG 308 ==
LOC: ED 12:58 → SUATTDRO 16:12 → 4W 16:12